=== PATIENT | male | born 1960 | race Caucasian/White ===

== ENCOUNTER 2022-02-17 15:49 | Inpatient (IN) ==
--- NOTE | 2022-02-17 16:27 | ED Triage Note ---
Date of Service February 17, 2022 History of Present Illness This patient was briefly evaluated while in triage. An abbreviated physical exam was performed. This patient is a 61-year-old Male with past medical history of type 2 diabetes who presents to the ED for evaluation of redness swelling heat in his right foot. Kicked a door jam 3 days ago. Concern for infection. Sent by PCP. Physical Exam CONSTITUTIONAL: in no acute pain or distress, resting comfortably SKIN: right foot with erythema, malodorous wound laterally and edema. MSK: edema in the r lateral foot Initial orders for labs and / or imaging were placed and patient was placed in the waiting area until a bed is available. Please see further documentation for the full ED course.
--- NOTE | 2022-02-17 18:19 | XRay Report ---
XR foot RT min 3V routine CLINICAL HISTORY: Kicked door jam, infection, DM 2 COMPARISON: None FINDINGS: Alignment of the right foot is anatomic. Tarsometatarsal joints are intact. There is no ac trell fracture. There is an old, healed fracture the distal shaft of the right fifth metatarsal. A few punctate densities project lateral to the right fifth proximal phalanx. Soft tissue swelling is prese nt. Note is made of numerous locules of soft tissue gas within the right forefoot, at the level of th e fourth and fifth digits. The soft tissue gas likely extends the level of the proximal metatarsal sh afts. No evidence for acute osteomyelitis. Vascular calcification is incidentally noted. There is marcelino ntar and posterior calcaneal spurring. Moderate degenerative changes within the right foot are presen t. IMPRESSION: 1. Findings suggestive of an extensive infectious process of the lateral dorsal right forefoot with s oft tissue swelling and soft tissue gas, as described above. The findings suggest a gas-forming infec tious process. No evidence for acute osteomyelitis. 2. No acute fracture. 3. A few punctate densities which project lateral to the right fifth proximal phalanx. This could ref lect debris/tiny foreign bodies on or just deep to the skin. ACT 112: Negative or not required by law. Electronically signed by: Jack Hairston M.D. 02/17/2022 6:17 PM
[2022-02-17] MEDS ORDERED: PIPERACILLIN/TAZOBACTAM 4.5 GM/120 ML BAG IV ONE (19:24)
[2022-02-17] MEDS ORDERED: SODIUM CHLORIDE 0.9% 1000ML 2,000 ML IV ONE (19:26)
[2022-02-17] MEDS ORDERED: ACETAMINOPHEN 1,000 MG/100 ML VIAL IV STA (19:29)
[2022-02-17 19:36] LABS: Basophils # (auto) 0.07 K/uL (0-0.2); Basophils % (auto) 0.4 %; Eosinophils # (auto) 0.18 K/uL (0-0.50); Eosinophils % (auto) 1.1 %; Hematocrit (blood only) 43.1 % (40.1-51.0); Hemoglobin 14.1 g/dl (14.0-18.0); Immature Granulocytes # (auto) 0.23 K/uL (0.00-0.02); Immature Granulocytes % (auto) 1.3 %; Lymphocytes # (auto) 1.45 K/uL (1.2-3.4); Lymphocytes % (auto) 8.5 %; Mean Corpuscular Hemoglobin 27.9 pg (25.0-34.0); Mean Corpuscular Hgb Conc 32.7 g/dL (32.0-36.0); Mean Corpuscular Volume 85.2 fL (80.0-100.0); Mean Platelet Volume 9.1 fL (9.4-12.4); Monocytes # (auto) 1.18 K/uL (0.24-0.82); Monocytes % (auto) 6.9 %; Neutrophils # (auto) 13.95 K/uL (1.4-6.5); Neutrophils % (auto) 81.8 %; Platelet Count 316 K/uL (130-400); RDW Coefficient of Variation 12.8 % (11.5-14.5); RDW Standard Deviation 39.6 fL (36.4-46.3); Red Blood Count 5.06 M/uL (4.63-6.08); White Blood Count 17.06 K/ul (4.8-10.8)
--- NOTE | 2022-02-17 19:53 | Emergency Department Note ---
Impression & Plan Diabetic foot infection, Osteomyelitis of right foot, Gas gangrene ED Provider Note NAME: RO HADDAD AGE: 61 SEX: M ARRIVES VIA: Walk-In INFORMANT: Patient ED PROVIDER(S): Trorey Rodriguez MD CHIEF COMPLAINT: Foot infection, referred. PLAN: Disposition: Admit MEDICAL DECISION MAKING: The patient is a pleasant 61-year-old gentleman with a past medical history of diabetes who presents emerged department [facility] by his , referred by his PCPs office for evaluation of right diabetic foot infection which she reports developed redness over the past week and then reports he slipped and hit it on a door jam several days ago. She has been encouraging him to be seen for a number of days but he only agreed today to be seen. Denies any fevers, chills, cough, congestion, GI or symptoms. He reports he had been hospitalized recently for heel ulcers which have improved. On arrival the patient is in no acute distress, afebrile stable vital signs. He has erythema warmth and tenderness of the right dorsal forefoot centered at the third-fourth toes with tunneling ulceration within the webspace of the fourth and fifth toe which was cultured. X-ray was performed per critical pathways and demonstrates evidence of necrotizing infection with soft tissue gas though in the setting of tunneling ulcer. No radiographic evidence of osteomyelitis is seen. WBC 17K with neutrophil predominance and left shift. H/H and platelets within normal limits. ESR 100, CRP 31. Chemistry without metabolic acidosis. Lactic acid 1.3, within normal limits. LFTs unremarkable. Procalcitonin is not significantly elevated. COVID-19 RNA, NICK test was negative. Patient was treated empirically with Zosyn and daptomycin. 30cc/kg per IBW IVF ordered. I did discuss the case with Dr. Jackson, podiatry, who evaluated the patient at the bedside. Appreciate consultation/recommendations. Will take to OR tonight. Case was discussed with Dr. Guzmán, [facility] hospitalist who will evaluate the patient for admission. Triage Nursing notes reviewed and agree them. Prior medical records reviewed Differential diagnosis: Cellulitis, abscess, MRSA infection, DVT, necrotizing fasciitis, dermatitis, drug eruption, allergic reaction, as well as other pathologies. ER treatment provided: See below. Diagnostics interpreted by me: ECG: NSR, 68 bpm, no ectopy, TWA, no overt ST elevation or depression. Cardiac Monitoring: An order for continuous cardiac monitoring was placed and demonstrated NSR, 68 bpm, no ectopy. Laboratory studies: See below Imaging studies: See below Consultation(s): Dr. Jackson, podiatry Dr. Guzmán, [facility] hospitalist HPI: The patient is a pleasant 61-year-old gentleman with a past medical history of diabetes who presents emerged department [facility] by his , referred by his PCPs office for evaluation of right diabetic foot infection which she reports developed redness over the past week and then reports he slipped and hit it on a door jam several days ago. She has been encouraging him to be seen for a number of days but he only agreed today to be seen. Denies any fevers, chills, cough, congestion, GI or symptoms. He reports he had been hospitalized recently for heel ulcers which have improved. ROS: See above HPI for pertinent positives & negatives. A total of 10 systems reviewed and were otherwise negative. VITALS:See Below PHYSICAL EXAMINATION: GENERAL: Awake, alert, uncomfortable-appearing, in no distress HENT: Normocephalic, atraumatic. Oropharynx with dry mucous membranes and otherwise unremarkable. EYES: Normal conjunctiva. Sclera non-icteric. NECK: Supple. No nuchal rigidity. FROM. No JVD. RESPIRATORY: Clear to auscultation. CARDIAC: Regular rate, normal rhythm. Extremities warm and well perfused. Pulses equal. ABDOMEN: Soft, non-distended. No tenderness to palpation. No rebound or guarding. No masses. RECTAL: Deferred. MUSCULOSKELETAL: Chest examination reveals no tenderness. The back is symmetrical on inspection without obvious abnormality. There is no CVA ten derness to palpation LOWER EXTREMITIES: Calves are equal size bilaterally and non-tender. Erythema w armth and tenderness of the right dorsal forefoot centered at the third-fourth toes with tunneling ulceration within the webspace of the fourth and fifth toe which was cultured. Biphasic dopplerable DP, PT and AT pulses noted NEURO: Normal sensorium. No sensory or motor deficits noted. SKIN: No rash or jaundice noted. ED COURSE: Critical Care: I have personally spent greater than 95 minutes of critical care time in the direct management of this patient. This includes bedside care, interpretation of diagnostic studies, and testing, discussion with consultants, patient, and family members, and other required patient management activities. This 95 minutes is in excess of all separately billable procedures. Torrey Rodriguez MD Past Med/Surg History Medical History Diabetes mellitus Dyslipidemia GERD (gastroesophageal reflux disease) Neuropathy Obesity Osteomyelitis of right foot Stroke July 2020 Right upper extremity weakness Family History Other Family history non-contributory Social History Smoking Status: Never smoker Smoking End Date: "one and a half years ago"; Do You Dip or Chew Tobacco: No; Hx Alcohol Use: No Hx Substance Use: No Preferred Language: Bengali Communication Ability: Effective Station Master Required: No Beliefs That Will Affect Care: None Current Living Situation: Family Current Living Situation Comment: Nephew Other Information That Helps Us Care for You: No Feels Safe at Home: Yes Safety Concerns: Feels Safe At This Time Assistive Devices: Glasses Allergies Allergies Allergy/AdvReac Type Severity Reaction Status Date / Time aloe vera Allergy Unknown Unknown Verified 02/17/22 21:01 Home Meds Home Medications Medication Instructions Recorded Confirmed ammonium lactate 12 % lotion 1 applic topical UD PRN dry skin 02/17/22 02/17/22 on legs clopidogrel 75 mg tablet 75 mg PO QAM 02/17/22 02/17/22 dutasteride 0.5 mg capsule 0.5 mg PO QAM 02/17/22 02/17/22 empagliflozin 10 mg tablet 10 mg PO QAM 02/17/22 02/17/22 (Jardiance) esomeprazole magnesium 20 mg 20 mg PO DAILYBB 02/17/22 02/17/22 granules delayed release for susp mecobalamin 1,000 mcg-folic acid 1 tab PO QAM 02/17/22 02/17/22 200 mcg sublingual tablet (Opurity) metoprolol tartrate 25 mg tablet 25 mg PO QAM 02/17/22 02/17/22 olmesartan 40 mg tablet 40 mg PO QAM 02/17/22 02/17/22 pantoprazole 40 mg tablet,delayed 40 mg PO QAM 02/17/22 02/17/22 release rosuvastatin 10 mg tablet 10 mg PO QPM 02/17/22 02/17/22 Results & Data (ED) Vital Signs Vital Signs - 24 hr 02/17/22 16:23 Temperature 37.1 C Temperature Source Oral Pulse Rate 78 Pulse Rhythm Regular Pulse Strength Normal Respiratory Rate 18 Respiratory Effort / Characteristics Non-Labored Spontaneous Respiratory Depth Normal Respiratory Pattern Regular Blood Pressure 117/60 Blood Pressure Mean 79 Blood Pressure Position Sitting Pulse Oximetry 98 Oxygen Delivery Method Room Air Sepsis Recent Fever Within 48 Hours No Sepsis New/Unexplained Change in Mental Status No Sepsis Action Taken by Nursing No Action Required Laboratory Data Attestation: I reviewed the patient's lab results. Result diagrams: 02/17/22 19:22 02/17/22 20:43 Lab Results 02/17/22 02/17/22 02/17/22 Range/Units 19:22 19: 19: WBC 17.06 H (4.8-10.8) K/ul RBC 5.06 (4.63-6.08) M/uL Hgb 14.1 (14.0-18.0) g/dl Hct 43.1 (40.1-51.0) % MCV 85.2 (80.0-100.0) fL MCH 27.9 (25.0-34.0) pg MCHC 32.7 (32.0-36.0) g/dL RDW Std Deviation 39.6 (36.4-46.3) fL RDW Coeff of Ahsan 12.8 (11.5-14.5) % Plt Count 316 (130-400) K/uL MPV 9.1 L (9.4-12.4) fL Immature Gran % (Auto) 1.3 % Neut % (Auto) 81.8 % Lymph % (Auto) 8.5 % [place] % (Auto) 6.9 % Eos % (Auto) 1.1 % Baso % (Auto) 0.4 % Neut # (Auto) 13.95 H (1.4-6.5) K/uL Lymph # (Auto) 1.45 (1.2-3.4) K/uL [place] # (Auto) 1.18 H (0.24-0.82) K/uL Eos # (Auto) 0.18 (0-0.50) K/uL Baso # (Auto) 0.07 (0-0.2) K/uL Immature Gran # (Auto) 0.23 H (0.00-0.02) K/uL Blood Smear Review Cancelled ESR (0-20) mm/hr Sodium 136 (136-145) mmol/L Potassium TNP Chloride 100 (98-107) mmol/L Carbon Dioxide 23 (21-32) mmol/L Anion Gap 13 H (3-11) BUN 16 (6-23) mg/dl Creatinine 0.95 (0.6-1.4) mg/dl Est Cr Clr Drug Dosing 91.6 ml/min Est GFR ( Amer) 101.1 ml/min Est GFR (Non-Af Amer) 87.3 ml/min BUN/Creatinine Ratio 16.8 (10-20) Glucose 216 H (70-99(Fasting)) mg/dl Lactate 1.3 (0.4-2.0) mmol/L Calcium 9.8 (8.5-10.1) mg/dl Total Bilirubin 0.8 (0.2-1.0) mg/dl AST TNP ALT 21 (7-52) U/L Alkaline Phosphatase 82 (34-104) U/L C-Reactive Protein 31.52 H (0-0.5) mg/dl Total Protein 8.2 (6.0-8.3) gm/dl Albumin 3.4 (3.4-5.0) gm/dl Globulin 4.8 H (2.5-4.0) gm/dl Albumin/Globulin Ratio 0.7 L (0.9-2) Procalcitonin (0-0.5) ng/ml SARS-CoV-2, RNA, NAAT (NEGATIVE) 02/17/22 02/17/22 02/17/22 Range/Units 19:22 19:22 20:15 WBC (4.8-10.8) K/ul RBC (4.63-6.08) M/uL Hgb (14.0-18.0) g/dl Hct (40.1-51.0) % MCV (80.0-100.0) fL MCH (25.0-34.0) pg MCHC (32.0-36.0) g/dL RDW Std Deviation (36.4-46.3) fL RDW Coeff of Ahsan (11.5-14.5) % Plt Count (130-400) K/uL MPV (9.4-12.4) fL Immature Gran % (Auto) % Neut % (Auto) % Lymph % (Auto) % [place] % (Auto) % Eos % (Auto) % Baso % (Auto) % Neut # (Auto) (1.4-6.5) K/uL Lymph # (Auto) (1.2-3.4) K/uL [place] # (Auto) (0.24-0.82) K/uL Eos # (Auto) (0-0.50) K/uL Baso # (Auto) (0-0.2) K/uL Immature Gran # (Auto) (0.00-0.02) K/uL Blood Smear Review ESR 101 H (0-20) mm/hr Sodium (136-145) mmol/L Potassium Chloride (98-107) mmol/L Carbon Dioxide (21-32) mmol/L Anion Gap (3-11) BUN (6-23) mg/dl Creatinine (0.6-1.4) mg/dl Est Cr Clr Drug Dosing ml/min Est GFR ( Amer) ml/min Est GFR (Non-Af Amer) ml/min BUN/Creatinine Ratio (10-20) Glucose (70-99(Fasting)) mg/dl Lactate (0.4-2.0) mmol/L Calcium (8.5-10.1) mg/dl Total Bilirubin (0.2-1.0) mg/dl AST ALT (7-52) U/L Alkaline Phosphatase (34-104) U/L C-Reactive Protein (0-0.5) mg/dl Total Protein (6.0-8.3) gm/dl Albumin (3.4-5.0) gm/dl Globulin (2.5-4.0) gm/dl Albumin/Globulin Ratio (0.9-2) Procalcitonin 0.21 (0-0.5) ng/ml SARS-CoV-2, RNA, NAAT NEGATIVE (NEGATIVE) 02/17/22 Range/Units 20:43 WBC (4.8-10.8) K/ul RBC (4.63-6.08) M/uL Hgb (14.0-18.0) g/dl Hct (40.1-51.0) % MCV (80.0-100.0) fL MCH (25.0-34.0) pg MCHC (32.0-36.0) g/dL RDW Std Deviation (36.4-46.3) fL RDW Coeff of Ahsan (11.5-14.5) % Plt Count (130-400) K/uL MPV (9.4-12.4) fL Immature Gran % (Auto) % Neut % (Auto) % Lymph % (Auto) % [place] % (Auto) % Eos % (Auto) % Baso % (Auto) % Neut # (Auto) (1.4-6.5) K/uL Lymph # (Auto) (1.2-3.4) K/uL [place] # (Auto) (0.24-0.82) K/uL Eos # (Auto) (0-0.50) K/uL Baso # (Auto) (0-0.2) K/uL Immature Gran # (Auto) (0.00-0.02) K/uL Blood Smear Review ESR (0-20) mm/hr Sodium (136-145) mmol/L Potassium 3.6 Chloride (98-107) mmol/L Carbon Dioxide (21-32) mmol/L Anion Gap (3-11) BUN (6-23) mg/dl Creatinine (0.6-1.4) mg/dl Est Cr Clr Drug Dosing ml/min Est GFR ( Amer) ml/min Est GFR (Non-Af Amer) ml/min BUN/Creatinine Ratio (10-20) Glucose (70-99(Fasting)) mg/dl Lactate (0.4-2.0) mmol/L Calcium (8.5-10.1) mg/dl Total Bilirubin (0.2-1.0) mg/dl AST 18 ALT (7-52) U/L Alkaline Phosphatase (34-104) U/L C-Reactive Protein (0-0.5) mg/dl Total Protein (6.0-8.3) gm/dl Albumin (3.4-5.0) gm/dl Globulin (2.5-4.0) gm/dl Albumin/Globulin Ratio (0.9-2) Procalcitonin (0-0.5) ng/ml SARS-CoV-2, RNA, NAAT (NEGATIVE) Administered Medications Daptomycin 475 mg/ Syringe 9.5 mls @ 4.75 mls/min IV Q24H [facility]; Protocol Stop: 02/19/22 19:29 Last Admin: 02/17/22 20:12 Dose: 4.75 mls/min Documented By: NEMESIO Lactated Ringer's (Lr) 1,000 mls @ 50 mls/hr IV .Q20H ONE Stop: 02/18/22 17:53 Last Admin: 02/18/22 03:57 Dose: 50 mls/hr Documented By: GREG Piperacillin Sod/Tazobactam (Sod 4.5 gm/ Dextrose) 120 mls @ 30 mls/hr IV Q8H [facility]; Protocol Stop: 02/25/22 01:59 Last Admin: 02/18/22 02:28 Dose: 30 mls/hr Documented By: GREG Insulin Glargine (Lantus Per Unit Charge) 5 units SQ HS HOANG Stop: 03/19/22 23:26 Last Admin: 02/18/22 02:58 Dose: 5 units Documented By: GREG Co-signed By: CONNOR Olmesartan (Olmesartan Medoxomil 40 Mg Tab) 40 mg PO QAM HOANG Stop: 03/20/22 02:19 Last Admin: 02/18/22 03:00 Dose: 40 mg Documented By: GREG Discontinued Medications Piperacillin Sod/Tazobactam Sod (Zosyn) 4.5 gm in 120 mls @ 240 mls/hr IV NOW ONE Stop: 02/17/22 19:53 Last Infusion: 02/17/22 21:57 Dose: 0 mls/hr Documented By: Admin: 02/17/22 20:50 Dose: 240 mls/hr Documented By: NEMESIO Sodium Chloride (Nss 1000ml) 2,000 mls @ 999 mls/hr IV .Q2H1M ONE Stop: 02/17/22 21:26 Last Infusion: 02/17/22 23:37 Dose: 0 mls/hr Documented By: Admin: 02/17/22 20:12 Dose: 999 mls/hr Documented By: NEMESIO Acetaminophen (Ofirmev) 1,000 mg in 100 mls @ 400 mls/hr IV NOW STA Stop: 02/17/22 19:43 Last Infusion: 02/17/22 20:30 Dose: 0 mls/hr Documented By: Admin: 02/17/22 20:12 Dose: 400 mls/hr Documented By: NEMESIO Insulin Aspart (Insulin Aspart Per Unit) 0 units SC Q6 HOANG Stop: 03/20/22 00:00 Last Admin: 02/18/22 02:59 Dose: Not Given Documented By: GREG Co-signed By: CONNOR Ioversol (Optiray 350 100ml) 85 ml IV ONCE ONE Stop: 02/17/22 21:50 Last Admin: 02/17/22 21:50 Dose: 85 ml Documented By: KENNA Lidocaine HCl (Lidocaine 1% Local 20 Ml Vial) Confirm Administered Dose 20 ml .ROUTE .STK-MED ONE Stop: 02/18/22 00:41 Last Admin: 02/18/22 01:05 Dose: 10 ml Documented By: [id number] Vancomycin HCl (Vancomycin Hcl 1000mg/20ml Vial) Confirm Administered Dose 50 mg .ROUTE .STK-MED ONE Stop: 02/18/22 00:55 Last Admin: 02/18/22 01:00 Dose: 1,000 mg Documented By: RTU Imaging Data Radiologist's Impression: Foot X-Ray 02/17/22 16:25 XR foot RT min 3V routine CLINICAL HISTORY: Kicked door jam, infection, DM 2 COMPARISON: None FINDINGS: Alignment of the right foot is anatomic. Tarsometatarsal joints are intact. There is no acute fracture. There is an old, healed fracture the distal shaft of the right fifth metatarsal. A few punctate densities project lateral to the right fifth proximal phalanx. Soft tissue swelling is present. Note is made of numerous locules of soft tissue gas within the right forefoot, at the level of the fourth and fifth digits. The soft tissue gas likely extends the level of the proximal metatarsal shafts. No evidence for acute osteomyelitis. Vascular calcification is incidentally noted. There is plantar and posterior calcaneal spurring. Moderate degenerative changes within the right foot are present. IMPRESSION: 1. Findings suggestive of an extensive infectious process of the lateral dorsal right forefoot with soft tissue swelling and soft tissue gas, as described above. The findings suggest a gas-forming infectious process. No evidence for acute osteomyelitis. 2. No acute fracture. 3. A few punctate densities which project lateral to the right fifth proximal phalanx. This could reflect debris/tiny foreign bodies on or just deep to the skin. ACT 112: Negative or not required by law. Electronically signed by: Jack Hairston M.D. 02/17/2022 6:17 PM Discharge Plan Visit Data Chief Complaint: Foot Injury/Pain Stated Complaint: REFERRED DOCTOR, RIGHT FOOT SWELLING ED Provider: Torrey Rodriguez Discharge Problem: Diabetic foot infection, Osteomyelitis of right foot, Gas gangrene Patient Disposition: Admitted As Inpatient Discharge Instructions Interventions: ED Discharge Assessment Last Done: 02/17/22 22:42
[2022-02-17] MEDS: DAPTOmycin 475 MG in SYRINGE 0 ML IV SCH (20:12)
[2022-02-17 20:26] LABS: Alanine Aminotransferase 21 U/L (7-52); Albumin Globulin Ratio 0.7 (0.9-2); Albumin Level 3.4 gm/dl (3.4-5.0); Alkaline Phosphatase 82 U/L (34-104); Anion Gap 13 (3-11); BUN Creatinine Ratio 16.8 (10-20); Bilirubin,Total 0.8 mg/dl (0.2-1.0); Blood Urea Nitrogen 16 mg/dl (6-23); C Reactive Protein 31.52 mg/dl (0-0.5); Calcium 9.8 mg/dl (8.5-10.1); Carbon Dioxide 23 mmol/L (21-32); Chloride 100 mmol/L (98-107); Creatinine Clr Calc Pharmacy 91.6 ml/min; Est GFR (African American) 101.1 ml/min; Est GFR (Non-African American) 87.3 ml/min; Globulin 4.8 gm/dl (2.5-4.0); Glucose 216 mg/dl (70-99(Fasting)); Sodium 136 mmol/L (136-145); Total Protein 8.2 gm/dl (6.0-8.3)
--- NOTE | 2022-02-17 21:09 | Orthopedic Consultation ---
Date of Consultation February 17, 2022 Assessment & Plan (1) Diabetic foot infection: Patient seen, evaluated, and treated. Reviewed x-ray noting gas present and probable right fifth proximal phalanx Osteomyelitis. Physical Exam shows signs consistent with necrotizing fasciitis. Discussed imaging and physical exam with Patient. Recommend immediate I&D with fifth ray resection, possible fourth. Patient and voice understanding and consent. I reviewed procedure in detail as well as postoperative recovery. I discussed expectations and patient's current weightbearing status. All questions answered. I have discussed procedure in detail as well as postoperative recovery. All potential risks, benefits, complications, alternatives, rehab, potential for incomplete relief of symptoms, need for further surgery, DVT, PE, , persistent pain, swelling, scarring, weakness, neurovascular, wound compli cations and potential for amputations were discussed with patient. Unwanted outcomes such as, but not limited to were reviewed including under correction, overcorrection, return of deformity, infection. All questions were answered. Patient has decided to proceed with procedure as indicated. (2) Gas gangrene: (3) Osteomyelitis of right foot: History of Present Illness History of Present Illness Patient is a type II diabetic, 61 year old male who is seen at [facility] ED for right diabetic foot infection. Patient is with who helps with history and care. He states ongoing infection for 4 days after kicking door. Patient was seen by his new [facility]ie PCP earlier in day who directed Patient to ED for immediate care. He notes he has switched from multiple family doctors in last year. Patient has no other complaints. Allergies Allergy/AdvReac Type Severity Reaction Status Date / Time aloe vera Allergy Unknown Unknown Verified 02/17/22 21:01 Home Medications Medication Instructions Recorded Confirmed Type ammonium lactate 12 % lotion 1 applic topical UD PRN dry skin 02/17/22 02/17/22 History on legs clopidogrel 75 mg tablet 75 mg PO QAM 02/17/22 02/17/22 History dutasteride 0.5 mg capsule 0.5 mg PO QAM 02/17/22 02/17/22 History empagliflozin 10 mg tablet 10 mg PO QAM 02/17/22 02/17/22 History (Jardiance) esomeprazole magnesium 20 mg 20 mg PO DAILYBB 02/17/22 02/17/22 History granules delayed release for susp mecobalamin 1,000 mcg-folic acid 1 tab PO QAM 02/17/22 02/17/22 History 200 mcg sublingual tablet (Opurity) metoprolol tartrate 25 mg tablet 25 mg PO QAM 02/17/22 02/17/22 History olmesartan 40 mg tablet 40 mg PO QAM 02/17/22 02/17/22 History pantoprazole 40 mg tablet,delayed 40 mg PO QAM 02/17/22 02/17/22 History release rosuvastatin 10 mg tablet 10 mg PO QPM 02/17/22 02/17/22 History Patient History Medical History (Updated 02/18/22 @ 00:10 by Mau Boyle MD) Diabetes mellitus Dyslipidemia GERD (gastroesophageal reflux disease) Neuropathy Obesity Osteomyelitis of right foot Stroke July 2020 Right upper extremity weakness Social History Smoking Status: Never smoker Preferred Language: [place] Feels Safe at Home: Yes Review of Systems Review of Systems: All systems reviewed & are unremarkable except as noted in HPI & below Physical Exam Constitutional: + ill appearing, + disheveled and cooperative Eyes: PERRL, conjunctivae normal, anicteric sclerae ENMT: external ear and nose normal, oropharynx normal Neck: trachea midline, no thyromegaly Respiratory: normal respiratory effort Cardiovascular: Rate/Rhythm: regular rate and regular rhythm Pedal pulses palpable Skin: Full thickness ulcer fourth interspace right foot. Wound probes to fifth proximal phalanx and fifth metatarsal head. The fifth digit is dark and dusky. There is erythema ascending up foot and ankle. Malodor present. Crepitus with palpation to lateral fifth ray. There is increasing erythema and induration consistent with infection. Psychiatric: Orientation: alert and oriented x 3 Results & Data ([facility]) Vital Signs (Past 12 Hours) Vital Signs Temp Pulse Resp BP Pulse Ox O2 Del Method 02/17/22 16:23 37.1 C 78 18 117/60 98 Room Air Diagnostic Findings XR foot RT min 3V routine CLINICAL HISTORY: Kicked door jam, infection, DM 2 COMPARISON: None FINDINGS: Alignment of the right foot is anatomic. Tarsometatarsal joints are intact. There is no acute fracture. There is an old, healed fracture the distal shaft of the right fifth metatarsal. A few punctate densities project lateral to the right fifth proximal phalanx. Soft tissue swelling is present. Note is made of numerous locules of soft tissue gas within the right forefoot, at the level of the fourth and fifth digits. The soft tissue gas likely extends the level of the proximal metatarsal shafts. No evidence for acute osteomyelitis. Vascular calcification is incidentally noted. There is plantar and posterior calcaneal spurring. Moderate degenerative changes within the right foot are present. IMPRESSION: 1. Findings suggestive of an extensive infectious process of the lateral dorsal right forefoot with soft tissue swelling and soft tissue gas, as described above. The findings suggest a gas-forming infectious process. No evidence for acute osteomyelitis. 2. No acute fracture. 3. A few punctate densities which project lateral to the right fifth proximal phalanx. This could reflect debris/tiny foreign bodies on or just deep to the skin.
[2022-02-17 21:37] LABS: Potassium 3.6 mmol/L (3.5-5.1)
--- NOTE | 2022-02-17 21:48 | History & Physical Report ---
Date of Service February 17, 2022 Assessment & Plan (1) Diabetic foot infection: Plan: Diabetic foot infection right No overt sepsis for now hx CVA 2020 hypertension, stable hyperlipidemia on statin Rx DM2 on oral medications, well-controlled as of recent hemoglobin A1c of 6.31 Aug 2021 BPH past tobacco abuse GMF CS, Daptomycin, Zosyn Podiatry consult Re: DM foot infection (ER provider already in touch with Dr. Jackson who recommends emergent surgery tonight.) n.p.o. until patient seen by Podiatry. Hold Plavix in anticipation of procedure. Resume Plavix postprocedure once cleared by podiatry. Basal bolus insulin adjusted for n.p.o. status, ISS BG goal 1 10-1 40, update hemoglobin A1c DVT prophylaxis. SCDs possible procedure Recommend pharmacologic anticoagulation once bleeding risk is deemed to be minimal and negligible pending Podiatry evaluation. Full code Patient [id number] requesting updates for providers. Ms. Elvira Rojas, contact #[phone]. Text document was generated using [employer] voice recognition software. It may contain grammatical or spelling errors. Kindly contact undersigned for clarification of any documentation item in question. History of Present Illness Chief Complaint: Right foot infection Primary Care Provider: Jerry Pavon DO History obtained from patient, family, and records. Medical history significant for CVA, hypertension, hyperlipidemia, DM2 on oral medications, BPH, past tobacco abuse. Patient hit his right foot on a door jam last week. Note of right small toe wound with worsening redness and swelling. No fever, no chills, no chest pain, no shortness of breath. Patient initially hesitant to have foot checked out by doctor as per sis ter-in-law. He later agreed to see his PCP today. Patient directed to ER for evaluation. Daptomycin and Zosyn administered at the ER. Medical History as above Surgical History : Heel surgery Family History : DM, heart disease Personal/Social history : Past tobacco abuse, no EtOH intake, currently unemployed Allergies Allergy/AdvReac Type Severity Reaction Status Date / Time aloe vera Allergy Unknown Unknown Verified 02/17/22 21:01 Home Medications Medication Instructions Recorded Confirmed Type ammonium lactate 12 % lotion 1 applic topical UD PRN dry skin 02/17/22 02/17/22 History on legs clopidogrel 75 mg tablet 75 mg PO QAM 02/17/22 02/17/22 History dutasteride 0.5 mg capsule 0.5 mg PO QAM 02/17/22 02/17/22 History empagliflozin 10 mg tablet 10 mg PO QAM 02/17/22 02/17/22 History (Jardiance) esomeprazole magnesium 20 mg 20 mg PO DAILYBB 02/17/22 02/17/22 History granules delayed release for susp mecobalamin 1,000 mcg-folic acid 1 tab PO QAM 02/17/22 02/17/22 History 200 mcg sublingual tablet (Opurity) metoprolol tartrate 25 mg tablet 25 mg PO QAM 02/17/22 02/17/22 History olmesartan 40 mg tablet 40 mg PO QAM 02/17/22 02/17/22 History pantoprazole 40 mg tablet,delayed 40 mg PO QAM 02/17/22 02/17/22 History release rosuvastatin 10 mg tablet 10 mg PO QPM 02/17/22 02/17/22 History Past Med/Surg History Medical History Diabetes mellitus Dyslipidemia GERD (gastroesophageal reflux disease) Neuropathy Obesity Osteomyelitis of right foot Stroke July 2020 Right upper extremity weakness Family History Other Family history non-contributory Social History Smoking Status: Never smoker Smoking End Date: "one and a half years ago"; Do You Dip or Chew Tobacco: No; Hx Alcohol Use: No Hx Substance Use: No Preferred Language: Lao Communication Ability: Effective Grounds Supervisor Required: No Beliefs That Will Affect Care: None Current Living Situation: Family Current Living Situation Comment: Nephew Other Information That Helps Us Care for You: No Feels Safe at Home: Yes Safety Concerns: Feels Safe At This Time Assistive Devices: Glasses Review of Systems Review of Systems: As per HPI, all other systems reviewed and negative Physical Exam Physical Exam: GENERAL: Comfortable, pleasant, obese, no respiratory distress SKIN: Normal color, warm HEENT: [place] palpebral conjunctivae, no ptosis, dry buccal mucosa NECK : Supple, no tenderness CHEST : CTA, no tenderness HEART : RRR, no obvious murmurs ABDOMEN: Some distention, nontender EXTREMITIES : Indurated right foot necrotic wound, minimal tenderness, no other conspicuous deformities noted NEUROLOGIC : Coherent, no facial asymmetry, no other gross focality Results & Data Results & Data ([facility]) Vital Signs (Past 12 Hours) Vital Signs Temp Pulse Resp BP Pulse Ox O2 Del Method 02/17/22 16:23 37.1 C 78 18 117/60 98 Room Air Laboratory Results Laboratory Results WBC 17.06 K/ul (4.8-10.8) H 02/17/22 19: RBC 5.06 M/uL (4.63-6.08) 02/17/22 19:22 Hgb 14.1 g/dl (14.0-18.0) 02/17/22 19: Hct 43.1 % (40.1-51.0) 02/17/22 19: MCV 85.2 fL (80.0-100.0) 02/17/22 19: MCH 27.9 pg (25.0-34.0) 02/17/22 19: MCHC 32.7 g/dL (32.0-36.0) 02/17/22 19: RDW Std Deviation 39.6 fL (36.4-46.3) 02/17/22: RDW Coeff of Ahsan 12.8 % (11.5-14.5) 02/17/22 19: Plt Count 316 K/uL (130-400) 02/17/22 19: MPV 9.1 fL (9.4-12.4) L 02/17/22 19: Immature Gran % (Auto) 1.3 % 02/17/22 19: Neut % (Auto) 81.8 % 02/17/22 19: Lymph % (Auto) 8.5 % 02/17/22 19: Louisa % (Auto) 6.9 % 02/17/22 19: Eos % (Auto) 1.1 % 02/17/22: Baso % (Auto) 0.4 % 02/17/22 19: Neut # (Auto) 13.95 K/uL (1.4-6.5) H 02/17/22 19: Lymph # (Auto) 1.45 K/uL (1.2-3.4) 02/17/22 19:22 Louisa # (Auto) 1.18 K/uL (0.24-0.82) H 02/17/22 19:22 Eos # (Auto) 0.18 K/uL (0-0.50) 02/17/22 19:22 Baso # (Auto) 0.07 K/uL (0-0.2) 02/17/22 19:22 Immature Gran # (Auto) 0.23 K/uL (0.00-0.02) H 02/17/22 19:22 Blood Smear Review Cancelled 02/17/22 19:22 ESR 101 mm/hr (0-20) H 02/17/22 19:22 Sodium 136 mmol/L (136-145) 02/17/22 19: Potassium 3.6 mmol/L (3.5-5.1) 02/17/22 20:43 Chloride 100 mmol/L (98-107) 02/17/22: Carbon Dioxide 23 mmol/L (21-32) 02/17/22 19:22 Anion Gap 13 (3-11) H 02/17/22 19:22 BUN 16 mg/dl (6-23) 02/17/22 19:22 Creatinine 0.95 mg/dl (0.6-1.4) 02/17/22 19:22 Est Cr Clr Drug Dosing 91.6 ml/min 02/17/22 19:22 Est GFR ( Amer) 101.1 ml/min 02/17/22 19:22 Est GFR (Non-Af Amer) 87.3 ml/min 02/17/22:22 BUN/Creatinine Ratio 16.8 (10-20) 02/17/22 19:22 Glucose 216 mg/dl (70-99(Fasting)) H 02/17/22 19:22 Lactate 1.3 mmol/L (0.4-2.0) 02/17/22 19:22 Calcium 9.8 mg/dl (8.5-10.1) 02/17/22 19:22 Total Bilirubin 0.8 mg/dl (0.2-1.0) 02/17/22 19:22 AST 18 U/L (13-39) 02/17/22 20:43 ALT 21 U/L (7-52) 02/17/22 19:22 Alkaline Phosphatase 82 U/L (34-104) 02/17/22 19:22 C-Reactive Protein 31.52 mg/dl (0-0.5) H 02/17/22 19:22 Total Protein 8.2 gm/dl (6.0-8.3) 02/17/22 19:22 Albumin 3.4 gm/dl (3.4-5.0) 02/17/22 19:22 Globulin 4.8 gm/dl (2.5-4.0) H 02/17/22 19:22 Albumin/Globulin Ratio 0.7 (0.9-2) L 02/17/22 19:22 Procalcitonin 0.21 ng/ml (0-0.5) 02/17/22 19:22 SARS-CoV-2, RNA, NAAT NEGATIVE (NEGATIVE) 02/17/22 20:15 Impressions Foot X-Ray 02/17/22 16:25 XR foot RT min 3V routine CLINICAL HISTORY: Kicked door jam, infection, DM 2 COMPARISON: None FINDINGS: Alignment of the right foot is anatomic. Tarsometatarsal joints are intact. There is no acute fracture. There is an old, healed fracture the distal shaft of the right fifth metatarsal. A few punctate densities project lateral to the right fifth proximal phalanx. Soft tissue swelling is present. Note is made of numerous locules of soft tissue gas within the right forefoot, at the level o f the fourth and fifth digits. The soft tissue gas likely extends the level of the proximal metatarsal shafts. No evidence for acute osteomyelitis. Vascular calcification is incidentally noted. There is plantar and posterior calcaneal spurring. Moderate degenerative changes within the right foot are present. IMPRESSION: 1. Findings suggestive of an extensive infectious process of the lateral dorsal right forefoot with soft tissue swelling and soft tissue gas, as described above. The findings suggest a gas-forming infectious process. No evidence for acute osteomyelitis. 2. No acute fracture. 3. A few punctate densities which project lateral to the right fifth proximal phalanx. This could reflect debris/tiny foreign bodies on or just deep to the skin. ACT 112: Negative or not required by law. Electronically signed by: Jack Hairston M.D. 02/17/2022 6:17 PM Diagnostic Findings EKG as per my interpretation :Rate 70, NSR, normal axis, T wave abnormalities anteroseptal and lateral leads
[2022-02-17] MEDS ORDERED: OPTIRAY 350 100ml IV ONE (21:49)
[2022-02-17] MEDS ORDERED: LORazepam 0.5 MG TAB PO PRN (21:54)
[2022-02-17] MEDS ORDERED: KETOROLAC TROMETHAMINE 15 MG/ML VIAL IV PRN (21:54)
[2022-02-17] MEDS ORDERED: LACTATED RINGER'S 1,000 ML IV ONE (21:54)
[2022-02-17] MEDS ORDERED: PROPOFOL IV EMULSION 10 MG/ML 20 ML VIAL IV ONE (23:19)
[2022-02-17] MEDS ORDERED: MIDAZOLAM HCL 1 MG/ML 2ML VIAL ONE (23:19)
[2022-02-17] MEDS ORDERED: fentaNYL citrate 100 MCG/2 ML VIAL ONE (23:19)
[2022-02-17] MEDS ORDERED: LIDOCAINE 2% MPF LOCAL 5 ML VIAL INFIL ONE (23:19)
--- NOTE | 2022-02-17 23:26 | Anesthesiology Consultation ---
Date of Service February 17, 2022 Assessment & Plan (1) Encounter for pre-operative examination: Chart Review Chart Review: Acceptable Risk for Surgery (emergency surgery) and Patient NOT seen in Pre Admission Testing Consults Requested none History Surgery Operation Date: 02/17/22 22:30 Proposed Procedures p Incision and Drainage Extremity - MAYRA CaM, MS Height/Weight Height: 5 ft 5 in Weight: 101.2 kg Allergies Allergy/AdvReac Type Severity Reaction Status Date / Time aloe vera Allergy Unknown Unknown Verified 02/17/22 21:01 Medications Home Medications Medication Instructions Recorded Confirmed Last Taken ammonium lactate 12 % lotion 1 applic topical UD PRN dry skin 02/17/22 02/17/22 Unknown on legs clopidogrel 75 mg tablet 75 mg PO QAM 02/17/22 02/17/22 02/17/22 dutasteride 0.5 mg capsule 0.5 mg PO QAM 02/17/22 02/17/22 02/17/22 empagliflozin 10 mg tablet 10 mg PO QAM 02/17/22 02/17/22 02/17/22 (Jardiance) esomeprazole magnesium 20 mg 20 mg PO DAILYBB 02/17/22 02/17/22 Unknown granules delayed release for susp mecobalamin 1,000 mcg-folic acid 1 tab PO QAM 02/17/22 02/17/22 02/17/22 200 mcg sublingual tablet (Opurity) metoprolol tartrate 25 mg tablet 25 mg PO QAM 02/17/22 02/17/22 02/17/22 olmesartan 40 mg tablet 40 mg PO QAM 02/17/22 02/17/22 02/17/22 pantoprazole 40 mg tablet,delayed 40 mg PO QAM 02/17/22 02/17/22 02/17/22 release rosuvastatin 10 mg tablet 10 mg PO QPM 02/17/22 02/17/22 02/16/22 Active Medications Generic Name Dose Route Start Last Admin Trade Name Freq PRN Reason Stop Dose Admin Daptomycin 475 mg/ Syringe 9.5 mls @ 4.75 mls/min 02/17/22 19:30 02/17/22 20:12 IV 02/19/22 19:29 4.75 mls/min Q24H HOANG Administration Protocol Past Medical History Medical History Diabetes mellitus Dyslipidemia GERD (gastroesophageal reflux disease) Neuropathy Obesity Osteomyelitis of right foot Social History Smoking Status: Never smoker Physical Exam Vital Signs Last Vital Signs Temp 37.1 C 02/17/22 16:23 Pulse 64 02/17/22 22:00 Resp 21 02/17/22 22:00 BP 120/78 02/17/22 22:00 Pulse Ox 97 02/17/22 22:00 O2 Del Method 02/17/22 22:42 Testing Laboratory Results 02/17/22 19:22 02/17/22 20:43 02/17/22 23:15 POC Glucose 143 H Electrocardiogram Date: 02/17/22 Findings: + NSR @ (68) and + T wave inversion (anterior leads) septal and lateral infarct
[2022-02-17] MEDS ORDERED: GLUCOSE 10 TAB/TUBE PO PRN (23:27)
[2022-02-17] MEDS ORDERED: GLUCOSE 40% GEL 15 GM TUBE PO PRN (23:27)
[2022-02-17] MEDS ORDERED: GLUCAGON FOR INJ 1 MG VIAL SQ PRN (23:27)
[2022-02-17] MEDS ORDERED: CARBOHYDRATES FOR HYPOGLYCEMIA PO PRN (23:27)
[2022-02-17] MEDS ORDERED: ACETAMINOPHEN 325 MG TAB PO PRN (23:27)
[2022-02-17] MEDS ORDERED: DEXTROSE 50% 50 ML SYRINGE IV PRN (23:27)
[2022-02-18] MEDS ORDERED: INSULIN ASPART PER UNIT SC SCH
--- NOTE | 2022-02-18 00:09 | History & Physical Bridge Note ---
Date of Service February 18, 2022 History & Physical Bridge Note I have examined the patient, reviewed the History & Physical and in the interval since the performance of the History & Physical I have noted the following changes of clinical significance: no changes noted
[2022-02-18] MEDS ORDERED: LIDOCAINE 1% LOCAL 20 ML VIAL ONE (00:40)
[2022-02-18] MEDS ORDERED: VANCOMYCIN HCL 1000MG/20ML VIAL ONE (00:54)
--- NOTE | 2022-02-18 01:08 | Post Operative Brief Note ---
Immediate Post Op Note v1 Date of Surgery February 18, 2022 Pre & Post Diagnosis Operation Date: 02/18/22 00:05 <No data on this case meets the specified criteria> I identified the patient and participated in the time-out.: Yes Procedure Operation Date: 02/18/22 00:05 <No data on this case meets the specified criteria> Surgeon Gianluca Jackson, KEREN, MS Glue Mixer none Estimated Blood Loss 5 Findings Consistent with Post-Op Diagnosis Necrotic right fifth toe, tracking purulent drainage from dorsal midfoot Anesthesia Type MAC Complications none
--- NOTE | 2022-02-18 01:09 | Post Operative Brief Note ---
Immediate Post Op Note v1 Date of Surgery February 18, 2022 Pre & Post Diagnosis Operation Date: 02/18/22 00:05 <No data on this case meets the specified criteria> I identified the patient and participated in the time-out.: Yes Procedure Operation Date: 02/18/22 00:05 <No data on this case meets the specified criteria> Surgeon Gianluca Jackson, KEREN, MS Ship'S Cook none Estimated Blood Loss 5 Findings Consistent with Post-Op Diagnosis necrotic fifth toe right foot. Purulent tracking across dorsal midfoot Anesthesia Type MAC
--- NOTE | 2022-02-18 01:21 | Operative Report ---
Post Operative Report Pre & Post Diagnosis Operation Date: 02/18/22 00:05 <No data on this case meets the specified criteria> I identified the patient and participated in the time-out.: Yes Procedure Operation Date: 02/18/22 00:05 <No data on this case meets the specified criteria> Surgeon Gianluca Jackson, DPM, MS Exotic Dancer none Estimated Blood Loss 5 Findings Consistent with Post-Op Diagnosis Wet gangrene Right foot fifth toe Specimens Fifth toe sent to micro and path Anesthesia Type MAC Description of Procedure History of present illness: Patient is a diabetic, 61 year old male who is seen for treatment of gangrene of the Right fifth toe. Patient relates no discomfort. He is seen for operative care including removal of non viable bone and soft tissue to right foot. All questions answered. Discussed procedure in detail and postoperative recovery. All potential risks, benefits, complications, alternatives, rehab, potential for incomplete relief of symptoms, need for further surgery, DVT, PE, , persistent pain, swelling, scarring, weakness, neurovascular, wound complications and potential for amputations were discussed with patient. Unwanted outcomes such as, but not limited to were reviewed including under correction, overcorrection, return of deformity, infection. All questions were answered. Patient has decided to proceed with procedure as indicated. Preoperative diagnosis: 1.) Diabetic ulcers right foot 2.) Gas gangrene Right foot Postoperative diagnosis: same Name of operation: 1.) Incision and drainage right foot 2.) Partial excision of Fifth ray Right foot 2.) Delayed primary closure Right foot wound Surgeon Dr. Jackson Exotic Dancer: None Anesthesia: Monitored anesthesia care Hemostasis: pneumatic ankle tourniquet as needed Estimated blood loss: minimal Procedure in detail: Under mild sedation the patient was brought in the operating room placed on the operating table in supine position. Following IV sedation the foot was prepped scrubbed and draped in usual aseptic manner. Attention was then directed to a diabetic ulcer with wet gangrene on the lateral right foot over the fifth toe. An ellipse incision was created over the fifth toe utilizing a sharp, sterile, #15 blade. The incision was deepened through subcutaneous tissue using sharp blunt dissection. Care was taken to identify and retract all vital neurovascular structures. All bleeders were ligated and cauterized necessary. The necrotic fifth toe is excised and placed on the back table. A portion of the right fifth proximal phalanx was sent to microbiology. The remainder of the excised right fifth toe was sent to pathology. The lateral incision was then elongated with a utilizing a sharp, sterile, #15 blade over the crepitus forefoot. The incision was deepened through subcutaneous tissue using sharp blunt dissection. Care was taken to identify and retract all vital neurovascular structures. All bleeders were ligated and cauterized necessary. Tracking was followed to the dorsal midfoot where copious purulent drainage was released. Deep Cultures were taken. 1 L of lactated Ringer was then irrigated with low flow into the wound. Further nonviable soft tissue was excised as needed. The wound was left open due to infection. Hemostasis was easily achieved and recommend CTA for further evaluation. Upon completion of the procedure the incision was dressed with dressing consisting of 4 x 4's Sagar Kerlix ABD. The Patient tolerated the procedure and anesthesia well. He was transferred to recovery room vital signs stable and vascular status intact all toes of the right foot following. Following a period of postoperative monitoring the patient will be readmitted to floor with the continuation of all preoperative orders. Patient return to the OR for continued debridement as needed as well as delayed primary closure. I attest to the content of the Intraoperative Record and any orders documented therein. Any exceptions are noted below.
--- NOTE | 2022-02-18 01:28 | Anesthesiology Progress Note ---
Date of Service February 18, 2022 Anesthesia Post Procedure Vital Signs Vital Signs: Temp Pulse Pulse Pulse Resp BP BP 02/17/22 23:00 02/17/22 23:00 36.7 C 73 16 185/81 H 02/17/22 22:42 02/17/22 22:00 64 21 120/78 02/17/22 16:23 37.1 C 78 18 117/60 Pulse Ox O2 Del Method 02/17/22 23:00 Room Air 02/17/22 23:00 99 Room Air 02/17/22 22:42 Room Air 02/17/22 22:00 97 Room Air 02/17/22 16:23 98 Room Air Pain Intensity Right Foot: Pain Intensity: 1 Transfer of Care Handoff Completed per policy Notes Mental Status: alert / awake / arousable Patient Amnestic to Procedure: Yes Nausea / Vomiting: adequately controlled Pain: adequately controlled Airway Patency, RR, SpO2: stable & adequate BP & HR: stable & adequate Hydration State: stable & adequate Anesthetic Complications: no major complications apparent and Pt Satisfied with anesthetic care Notes: The patient is awake and comfortable.
[2022-02-18] MEDS: PIPERACILLIN/TAZOBACTAM 4.5 GM in DEXTROSE 5% 100 ML IV SCH ×3 (02:28→17:58)
[2022-02-18] MEDS ORDERED: Nursing to Pharmacy Communication SCH (02:30)
[2022-02-18] MEDS: LANTUS PER UNIT CHARGE SQ SCH ×2 (02:58→21:23)
[2022-02-18] MEDS: OLMESARTAN MEDOXOMIL 40 MG TAB PO SCH (03:00)
[2022-02-18] MEDS ORDERED: MoRPHine SULFATE 4 MG/ML 1 ML CARP\\VIAL IV PRN (06:11)
[2022-02-18] MEDS: METOPROLOL TARTRATE 25 MG TAB PO SCH (06:24)
[2022-02-18] MEDS ORDERED: [UNRECOGNIZED DRUG - REMARK] PO SCH (06:30)
[2022-02-18 06:34] LABS: Basophils # (auto) 0.05 K/uL (0-0.2); Basophils % (auto) 0.4 %; Eosinophils # (auto) 0.16 K/uL (0-0.50); Eosinophils % (auto) 1.2 %; Hematocrit (blood only) 39.4 % (40.1-51.0); Hemoglobin 12.8 g/dl (14.0-18.0); Immature Granulocytes # (auto) 0.16 K/uL (0.00-0.02); Immature Granulocytes % (auto) 1.2 %; Lymphocytes # (auto) 0.87 K/uL (1.2-3.4); Lymphocytes % (auto) 6.5 %; Mean Corpuscular Hemoglobin 27.8 pg (25.0-34.0); Mean Corpuscular Hgb Conc 32.5 g/dL (32.0-36.0); Mean Corpuscular Volume 85.5 fL (80.0-100.0); Mean Platelet Volume 9.2 fL (9.4-12.4); Monocytes # (auto) 0.96 K/uL (0.24-0.82); Monocytes % (auto) 7.2 %; Neutrophils # (auto) 11.12 K/uL (1.4-6.5); Neutrophils % (auto) 83.5 %; Platelet Count 297 K/uL (130-400); RDW Coefficient of Variation 12.6 % (11.5-14.5); RDW Standard Deviation 39.1 fL (36.4-46.3); Red Blood Count 4.61 M/uL (4.63-6.08); White Blood Count 13.32 K/ul (4.8-10.8)
[2022-02-18 07:10] LABS: BUN Creatinine Ratio 15.3 (10-20); Calcium 8.9 mg/dl (8.5-10.1); Creatinine Clr Calc Pharmacy 120.9 ml/min; Est GFR (African American) 118.3 ml/min; Est GFR (Non-African American) 102.1 ml/min; Potassium 3.7 mmol/L (3.5-5.1)
--- NOTE | 2022-02-18 07:13 | CT Scan Report ---
CT foot RT w con HISTORY: 61 years-old Male eval for osseous involvement acute right foot pain with soft tissue infec tion. Clinical concern for osteomyelitis. COMPARISON: Right foot radiographs of same day TECHNIQUE: Multiple axial CT images of the right foot were obtained following the intravenous adminis tration of 85 mL Optiray 350. A dose lowering technique was used consistent with the principals of [employer]. FINDINGS: No acute fracture, dislocation or osseous erosion identified. Moderate to large enthesophytes of the calcaneus. Multifocal osteoarthritis is predominantly mild and mild to moderate. Chronic appearing os teochondral defect of the medial talar dome measures up to approximately 1.5 cm. Arterial calcificati ons are noted. No definite opaque foreign body. Tendons and ligaments are suboptimally evaluated by C T technique. No widening of the Lisfranc interval. There is mild to moderate diffuse subcutaneous edema. No abscess identified. Subcutaneous emphysema w ithin the fourth webspace and plantar aspect of the fifth toe also noted with possible plantar ulcer. Subcutaneous emphysema extends into the dorsal tissues of the forefoot. IMPRESSION: 1. Findings suggestive of cellulitis with subcutaneous emphysema of the dorsal lateral forefoot likel y associated with gas forming organism. No abscess identified. 2. No evidence of osteomyelitis. ACT 112: Negative or not required by law. The above report was generated using voice recognition software. It may contain grammatical, syntax o r spelling errors. Electronically signed by: Pipo Travis M.D. 02/18/2022 7:11 AM
[2022-02-18] MEDS: oxyCODONE HCL IR 5 MG TAB (IMMEDIATE RELEASE) PO PRN ×3 (07:33→21:23)
[2022-02-18] MEDS: PANTOprazole 40 MG TAB PO SCH (08:21)
[2022-02-18] MEDS: INSULIN ASPART PER UNIT SC SCH ×4 (08:42→21:27)
[2022-02-18] MEDS ORDERED: [UNRECOGNIZED DRUG - OTHER] PO SCH (09:00)
[2022-02-18] MEDS ORDERED: METOPROLOL TARTRATE 25 MG TAB PO SCH (09:00)
[2022-02-18] MEDS ORDERED: OLMESARTAN MEDOXOMIL 40 MG TAB PO SCH (09:00)
--- NOTE | 2022-02-18 16:05 | Hospitalist Progress Note ---
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 status, ISS BG goal 1 10-1 40, update hemoglobin A1c BPH past tobacco abuse DVT prophylaxis. SCDs possible procedure Hold Plavix in anticipation of procedure. Resume Plavix postprocedure once cleared by podiatry. Full code Patient [id number] requesting updates for providers. Ms. Elvira Rojas, contact #[phone]. Admission and Anticipated Discharge Date Admission Date: February 17, 2022 Subjective 02/18/2022 The patient was seen and examined in medical floor He is a status post incision and drainage's right foot, partial excision of fifth ray right foot Minimal pain but denies any other symptoms Review of Systems Review of Systems: All systems reviewed and are unremarkable except as noted below Physical Exam Physical Exam: Lying in bed comfortably Constitutional: well developed, well nourished, + ill appearing and + obese Eyes: PERRL, conjunctivae normal, anicteric sclerae ENMT: external ear and nose normal, oropharynx normal Neck: trachea midline, no thyromegaly Respiratory: no respiratory distress Auscultation: lungs clear to auscultation bilaterally Cardiovascular: Rate/Rhythm: regular rate and regular rhythm; not tachycardic Heart Sounds: normal S1 and normal S2; no murmur Extremities: + edema (Trace edema bilaterally more on the right than the left) Gastrointestinal (Abdomen): Inspection/Auscultation: normal bowel sounds; abdomen not distended Percussion/Palpation: abdomen soft; abdomen nontender Musculoskeletal: Status post incision and drainage of right foot, partial excision of fifth ray right foot and delayed primary closure right foot wound Neurologic: Alert awake and oriented x3. No focal motor deficit appreciated Lymphatic: no cervical or axillary lymphadenopathy Results & Data Results & Data ([facility]) Vital Signs (Past 12 Hours) Vital Signs Temp Pulse Resp BP Pulse Ox O2 Del Method 02/18/22 15:21 37.3 C 71 16 143/83 H 97 Room Air 02/18/22 07:20 Room Air 02/18/22 07:40 37.4 C 73 16 161/75 H 95 Room Air 02/18/22 06:24 70 158/77 H 02/18/22 05:10 36.7 C 73 16 188/77 H 97 02/18/22 04:08 36.9 C 67 16 151/83 H 96 Laboratory Results Short CBC 02/17/22 02/18/22 Range/Units 19:22 05:43 WBC 17.06 H 13.32 H (4.8-10.8) K/ul Hgb 14.1 12.8 L (14.0-18.0) g/dl Hct 43.1 39.4 L (40.1-51.0) % Plt Count 316 297 (130-400) K/uL BMP 02/17/22 02/17/22 02/18/22 19:22 20:43 05:43 Sodium 136 139 Potassium TNP 3.6 3.7 Chloride 100 104 Carbon Dioxide 23 18 L BUN 16 11 Creatinine 0.95 0.72 Glucose 216 H 144 H Calcium 9.8 8.9 Liver Function 02/17/22 02/17/22 Range/Units 19:22 20:43 Total Bilirubin 0.8 (0.2-1.0) mg/dl AST TNP 18 ALT 21 (7-52) U/L Alkaline Phosphatase 82 (34-104) U/L Albumin 3.4 (3.4-5.0) gm/dl Medications Administered Current Inpatient Medications Acetaminophen (Acetaminophen 325 Mg Tab) 650 mg PO Q4H PRN PRN Reason: pain/fever Stop: 03/19/22 23:26 Dextrose (Dextrose 50% 50 Ml Syringe) 25 - 50 ml IV UD PRN; Protocol PRN Reason: Hypoglycemia Protocol Stop: 03/19/22 23:26 Glucagon (Glucagon For Inj 1 Mg Vial) 1 mg SQ UD PRN; Protocol PRN Reason: Hypoglycemia Protocol Stop: 03/19/22 23:26 Glucose (Glucose 40% Gel 15 Gm Tube) 15 - 30 gm PO UD PRN; Protocol PRN Reason: Hypoglycemia Protocol Stop: 03/19/22 23:26 Glucose (Glucose 10 Tab/Tube) 4 - 8 tab PO UD PRN; Protocol PRN Reason: Hypoglycemia Treatment Stop: 03/19/22 23:26 Daptomycin 475 mg/ Syringe 9.5 mls @ 4.75 mls/min IV Q24H [facility]; Protocol Stop: 02/19/22 19:29 Last Admin: 02/17/22 20:12 Dose: 4.75 mls/min Lactated Ringer's (Lr) 1,000 mls @ 50 mls/hr IV .Q20H [facility] Stop: 02/18/22 17:53 Last Admin: 02/18/22 03:57 Dose: 50 mls/hr Promethazine HCl 12.5 mg/ (Sodium Chloride) 50.5 mls @ 202 mls/hr IV Q6H PRN PRN Reason: Nausea And Vomiting Stop: 03/19/22 21:53 Piperacillin Sod/Tazobactam (Sod 4.5 gm/ Dextrose) 120 mls @ 30 mls/hr IV Q8H [facility]; Protocol Stop: 02/25/22 01:59 Last Infusion: 02/18/22 14:08 Dose: Infused Insulin Aspart (Insulin Aspart Per Unit) 0 units SC ACHS [facility] Stop: 03/20/22 07:29 Last Admin: 02/18/22 12:31 Dose: Not Given Insulin Glargine (Lantus Per Unit Charge) 5 units SQ HS [facility] Stop: 03/19/22 23:26 Last Admin: 02/18/22 02:58 Dose: 5 units Lorazepam (Lorazepam 0.5 Mg Tab) 0.5 mg PO TID PRN PRN Reason: Anxiety Stop: 03/19/22 21:53 Metoprolol Tartrate (Metoprolol Tartrate 25 Mg Tab) 25 mg PO QAM [facility] Stop: 03/20/22 06:14 Last Admin: 02/18/22 06:24 Dose: 25 mg Miscellaneous (Dutasteride: Order Awaiting Action) 1 each N/A QS [facility] Stop: 03/20/22 07:59 Last Admin: 02/18/22 15:25 Dose: Not Given Miscellaneous (Carbohydrates For Hypoglycemia ) 15 - 30 gm PO UD PRN PRN Reason: Hypoglycemia Protocol Stop: 03/19/22 23:26 Morphine Sulfate (Morphine Sulfate 4 Mg/Ml 1 Ml Carp\Vial) 4 mg IV Q4H PRN PRN Reason: Pain Stop: 03/04/22 06:10 Olmesartan (Olmesartan Medoxomil 40 Mg Tab) [facility]: 03/20/22 02:19 Last Admin: 02/18/22 03:00 Dose: 40 mg Oxycodone HCl (Oxycodone Hcl Ir 5 Mg Tab (Immediate Release)) 5 mg PO Q4H PRN PRN Reason: Pain Stop: 03/03/22 21:53 Last Admin: 02/18/22 07:33 Dose: 5 mg Pantoprazole Sodium (Pantoprazole 40 Mg Tab) 40 [facility] [place] Stop: 03/20/22 08:59 Last Admin: 02/18/22 08:21 Dose: 40 mg
[2022-02-18] MEDS: DAPTOmycin 475 MG in SYRINGE 0 ML IV SCH (18:13)
[2022-02-18] MEDS ORDERED: OPTIRAY 320 500ml IV ONE (20:23)
--- NOTE | 2022-02-18 21:52 | CT Scan Report ---
CT ANGIOGRAM OF THE ABDOMEN, PELVIS, BILATERAL LOWER EXTREMITIES HISTORY: Right foot wound. assess arterial flow in legs/feet TECHNIQUE: Multiaxial CT images of the abdomen, pelvis, bilateral lower extremities were performed fo llowing the intravenous ministration of contrast. Maximum intensity projection images were also obtai ruby. COMPARISON STUDY: Right foot CT 02/17/2022. FINDINGS: Interval amputation of the right fifth toe. Soft tissue gas within the dorsum of the forefo ot and fourth toe is again noted. This could be due to the postoperative change or a gas-forming orga nism there are few bibasilar linear densities consistent with subsegmental atelectasis. No pneumoperi toneum. No pneumatosis. Small left-sided hydrocele is noted. Multiple small gallstones. No gallbladde r wall thickening. The liver, spleen, adrenal glands, and pancreas are unremarkable. No retroperitone al lymphadenopathy. 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 Mil d to moderate bilateral cortical renal thinning which is likely chronic. Otherwise, the kidneys enhan ce normally. No hydronephrosis. Residual contrast within the bladder from the recent CT examination. The prostate gland is mildly enlarged. No bowel wall thickening or obstruction. Normal appendix. Mild to moderate atherosclerotic plaque within the normal caliber abdominal aorta and iliac arteries. No evidence for an aortic dissection. No central venous stenosis within the celiac or superior mesen teric arteries. There is a focal area of high-grade stenosis within the proximal left inferior mesent pedro luis artery on image 280. There are 3 renal arteries bilaterally. Some of these renal arteries demons trate mild to moderate stenosis. No significant stenosis or occlusion within the bilateral iliac sue karis. Scattered calcified plaque within the right common and superficial femoral arteries. There is mild to moderate multifocal stenosis throughout the majority of the mid to distal right superficial femoral artery. There is a focal area of high-grade stenosis within the distal right superficial femoral sue ry on image 752. Mild narrowing throughout the right popliteal artery. There is a focal area of high- grade stenosis at the distal right tibioperoneal trunk. The right anterior tibial artery is patent. M ultifocal narrowing with possible occlusion of the distal right posterior tibial artery. The right pe roneal artery is diminutive and may be occluded distally. The left common femoral artery is patent. Multifocal moderate to severe narrowing within the mid to d istal left superficial femoral artery. This is most pronounced within the distal left superficial fem oral artery which demonstrates an area of 90% stenosis on image 748. There is mild multifocal narrowi ng within the left popliteal artery. Focal high-grade stenosis at the left tibioperoneal trunk. The d istal anterior tibial artery and distal peroneal arteries are diminutive and likely occluded. Calcifi ed plaque within the distal posterior tibial artery which limits evaluation. No definite occlusion wi thin the left posterior tibial artery. IMPRESSION: 1. Interval amputation of the right fifth toe. Soft tissue gas surrounding the fourth toe and dorsum of the forefoot is again noted. This could be due to postoperative change or a gas-forming organism. 2. Cholelithiasis. 3. No significant stenosis or dissection within the aorta or iliac arteries. 4. Focal area of high-grade stenosis of the proximal inferior mesenteric artery. 5. Multifocal stenoses within the bilateral lower extremity arterial systems as described above . 6. The distal right posterior tibial artery, distal left anterior tibial artery, and distal bilateral peroneal arteries are likely occluded. 7. Additional findings as described above. ACT 112: Negative or not required by law. Electronically signed by: Mau Hewitt M.D. 02/18/2022 9:49 PM
--- NOTE | 2022-02-18 22:24 | Orthopedic Progress Note ---
Date of Service February 18, 2022 Assessment & Plan (1) Diabetic foot infection: Plan: Awaiting Cultures and sensitivities for out patient Abx therapy. Awaiting CTA results. Awaiting soft tissue rebound for possible further debridement / delayed primary closure. Admission and Anticipated Discharge Date Admission Date: February 17, 2022 Subjective Patient status post day 1. He notes minimal discomfort. Patient is on his way to [facility] this evening. Physical Exam Physical Exam: Dressing intact. Results & Data ([facility]) Vital Signs (Past 12 Hours) Vital Signs Temp Pulse Pulse Resp BP Pulse Ox O2 Del Method 02/18/22 21:45 36.7 C 68 18 171/82 H 96 Room Air 02/18/22 15:21 37.3 C 71 16 143/83 H 97 Room Air
[2022-02-19] MEDS: PIPERACILLIN/TAZOBACTAM 4.5 GM in DEXTROSE 5% 100 ML IV SCH ×3 (02:28→18:14)
--- NOTE | 2022-02-19 06:11 | Electrocardiogram Report ---
Test Reason : Blood Pressure : / mmHG Vent. Rate : 068 BPM Atrial Rate : 068 BPM P-R Int : 146 ms QRS Dur : 080 ms QT Int : 390 ms P-R-T Axes : -13 045 147 degrees QTc Int : 414 ms Normal sinus rhythm Anterior infarct T wave abnormality, consider anterior ischemia T wave abnormality, consider lateral ischemia Abnormal ECG No previous ECGs available Confirmed by Yovanny Ortiz ([id number]) on 02/19/2022 6:11:04 AM Referred By: Jerry Pavon Confirmed By:Yovanny Ortiz
[2022-02-19] MEDS: METOPROLOL TARTRATE 25 MG TAB PO SCH (08:29)
[2022-02-19] MEDS: PANTOprazole 40 MG TAB PO SCH (08:30)
[2022-02-19] MEDS: OLMESARTAN MEDOXOMIL 40 MG TAB PO SCH (08:30)
[2022-02-19] MEDS: NSS + 20MEQ KCL 20 MEQ/1,000 ML BAG IV SCH ×2 (08:35→21:18)
[2022-02-19] MEDS: oxyCODONE HCL IR 5 MG TAB (IMMEDIATE RELEASE) PO PRN ×2 (08:41→21:29)
[2022-02-19 09:06] LABS: Basophils # (auto) 0.05 K/uL (0-0.2); Basophils % (auto) 0.4 %; Eosinophils % (auto) 2.2 %; Hematocrit (blood only) 38.7 % (40.1-51.0); Hemoglobin 12.4 g/dl (14.0-18.0); Immature Granulocytes # (auto) 0.19 K/uL (0.00-0.02); Immature Granulocytes % (auto) 1.4 %; Lymphocytes # (auto) 1.26 K/uL (1.2-3.4); Lymphocytes % (auto) 9.3 %; Mean Corpuscular Hemoglobin 27.7 pg (25.0-34.0); Mean Corpuscular Volume 86.6 fL (80.0-100.0); Mean Platelet Volume 9.2 fL (9.4-12.4); Monocytes # (auto) 0.96 K/uL (0.24-0.82); Monocytes % (auto) 7.1 %; Neutrophils # (auto) 10.75 K/uL (1.4-6.5); Neutrophils % (auto) 79.6 %; Platelet Count 314 K/uL (130-400); RDW Coefficient of Variation 12.7 % (11.5-14.5); RDW Standard Deviation 40.1 fL (36.4-46.3); Red Blood Count 4.47 M/uL (4.63-6.08); White Blood Count 13.51 K/ul (4.8-10.8)
[2022-02-19 09:19] LABS: BUN Creatinine Ratio 13.3 (10-20); Calcium 9.1 mg/dl (8.5-10.1); Est GFR (African American) 116.4 ml/min; Est GFR (Non-African American) 100.4 ml/min; Potassium 4.1 mmol/L (3.5-5.1)
[2022-02-19] MEDS: INSULIN ASPART PER UNIT SC SCH ×4 (09:53→21:30)
--- NOTE | 2022-02-19 13:04 | Consultation ---
Date of Consultation February 19, 2022 Assessment & Plan (1) Peripheral arterial disease: Pt with severe R foot infection with gas gangrene after trauma to his foot 1 week ago. Has undergone orthopedic surgery to address this. He has significant infrapopliteal arterial disease, but does not require intervention unless his foot wound is nonhealing. Please call next week if his wound does not begin to show signs of healing, and will be happy to reeval the patient. History of Present Illness Reason for Consultation: PAD Attending Physician: Reji Campbell MD History of Present Illness 61 yo m with hx of DMII, dyslipidemia, GERD, neuropathy, HTN, admitted with gas gangrene of R foot, seen in consultation today for PAD noted on imaging. Pt states he struck his R 5th toe on a doorframe about 1 week ago. States it began swelling and becoming painful a few days later. Came to [facility] after going to his PCP who sent him to ED. Underwent I&D and 5th ray resection of R foot by Dr Jackson. Pt states no hx of PAD. States he will sometimes have some calf discomfort when ambulating, but is unable to tell how far he walks when this occurs. States it happens intermittently and does not keep him from doing his normal daily activities. states he had a L heel wound in the past, which finally healed after many months. Denies SIERRA, fever, cehst pain, SOB, abd pain, N/V, rest pain, other complaints. CTA abd/pelvis with runoff demonstrates mild arterial disease in pelvis and above knee. Demonstrates more signficiant disease infrapopliteal. Allergies Allergy/AdvReac Type Severity Reaction Status Date / Time aloe vera Allergy Unknown Unknown Verified 02/17/22 21:01 Home Medications Medication Instructions Recorded Confirmed Type ammonium lactate 12 % lotion 1 applic topical UD PRN dry skin 02/17/22 02/17/22 History on legs clopidogrel 75 mg tablet 75 mg PO QAM 02/17/22 02/17/22 History dutasteride 0.5 mg capsule 0.5 mg PO QAM 02/17/22 02/17/22 History empagliflozin 10 mg tablet 10 mg PO QAM 02/17/22 02/17/22 History (Jardiance) esomeprazole magnesium 20 mg 20 mg PO DAILYBB 02/17/22 02/17/22 History granules delayed release for susp mecobalamin 1,000 mcg-folic acid 1 tab PO QAM 02/17/22 02/17/22 History 200 mcg sublingual tablet (Opurity) metoprolol tartrate 25 mg tablet 25 mg PO QAM 02/17/22 02/17/22 History olmesartan 40 mg tablet 40 mg PO QAM 02/17/22 02/17/22 History pantoprazole 40 mg tablet,delayed 40 mg PO QAM 02/17/22 02/17/22 History release rosuvastatin 10 mg tablet 10 mg PO QPM 02/17/22 02/17/22 History Patient History Medical History (Updated 02/19/22 @ 13:13 by Dea Cordon PA-C) Diabetes mellitus Dyslipidemia GERD (gastroesophageal reflux disease) Neuropathy Obesity Osteomyelitis of right foot Peripheral arterial disease Stroke July 2020 Right upper extremity weakness Family History Other Family history non-contributory Social History Smoking Status: Never smoker Smoking End Date: "one and a half years ago"; Do You Dip or Chew Tobacco: No; Hx Alcohol Use: No Hx Substance Use: No Preferred Language: Egyptian Communication Ability: Effective Potato Chip Maker Required: No Beliefs That Will Affect Care: None marital status: Single Current Living Situation: Family Current Living Situation Comment: Nephew How many Children do You have: 9 Other Information That Helps Us Care for You: No Feels Safe at Home: Yes Safety Concerns: Feels Safe At This Time Assistive Devices: Walker and Wheelchair Review of Systems Review of Systems: All systems reviewed & are unremarkable except as noted in HPI & below Physical Exam Constitutional: WD/WN, vitals as above cooperative and comfortable; not in distress ENMT: Ears: no hearing impairment Neck: trachea midline Respiratory: normal respiratory effort; no respiratory distress Auscultation: lungs clear to auscultation bilaterally and + diminished lung sounds Cardiovascular: Rate/Rhythm: regular rate and regular rhythm Vessels: posterior tibial pulses present (LLE +1, RLE not able ot assess), dorsalis pedis pulses present (LLE nonpalpable, RLE unable to assess) and radial pulses present; + abnormal peripheral pulses Extremities: normal capillary refill and + edema Gastrointestinal (Abdomen): Inspection/Auscultation: abdomen normal to inspection and normal bowel sounds Percussion/Palpation: abdomen soft; abdomen nontender Musculoskeletal: no cyanosis or clubbing, extremities motor strength 5/5 Skin: + crusts (L lower leg) R foot dressing intact. Neurologic: moves all extremities and awake; no focal motor deficits and not confused Psychiatric: Orientation: alert and oriented x 3 Affect: + irritable affect Results & Data ([facility]) Vital Signs (Past 12 Hours) Vital Signs Temp Pulse Resp BP BP Pulse Ox O2 Del Method 02/19/22 10:01 149/73 H 02/19/22 08:02 36.9 C 66 20 180/85 H 95 Room Air
--- NOTE | 2022-02-19 15:22 | Hospitalist Progress Note ---
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 Including other findings as in the report Appreciate vascular surgery input and recommendation Conservative management H/O CVA 2020 No acute findings Hypertension, stable Continue with current medications Hyperlipidemia on statin Rx DM2 on oral medications, well-controlled as of recent hemoglobin A1c of 6.31 Aug 2021 With diabetic neuropathy and diabetic foot ulcers Basal bolus insulin adjusted for n.p.o. status, ISS BG goal 1 10-1 40, update hemoglobin A1c BPH past tobacco abuse DVT prophylaxis. SCDs possible procedure Hold Plavix in anticipation of procedure. Resume Plavix postprocedure once cleared by podiatry. Full code Patient [id number] requesting updates for providers. Ms. Elvira Rojas, contact #[phone]. Admission and Anticipated Discharge Date Admission Date: February 17, 2022 Subjective 02/18/2022 The patient was seen and examined in medical floor He is a status post incision and drainage's right foot, partial excision of fifth ray right foot Minimal pain but denies any other symptoms 02/19/2022 Patient was seen and examined in medical floor He complains to have minimal pain involving the right foot but denies any other significant symptom Denies any fever and or chills, no nausea no vomiting Review of Systems Review of Systems: All systems reviewed and are unremarkable except as noted below Physical Exam Physical Exam: Lying in bed comfortably Constitutional: well developed, well nourished, + ill appearing and + obese Eyes: PERRL, conjunctivae normal, anicteric sclerae ENMT: external ear and nose normal, oropharynx normal Neck: trachea midline, no thyromegaly Respiratory: no respiratory distress Auscultation: lungs clear to auscultation bilaterally Cardiovascular: Rate/Rhythm: regular rate and regular rhythm; not tachycardic Heart Sounds: normal S1 and normal S2; no murmur Extremities: + edema (Trace edema bilaterally more on the right than the left) Gastrointestinal (Abdomen): Inspection/Auscultation: normal bowel sounds; abdomen not distended Percussion/Palpation: abdomen soft; abdomen nontender Musculoskeletal: No acute arthritis in any joint right foot is bandaged Neurologic: Alert awake and oriented x3 Lymphatic: no cervical or axillary lymphadenopathy Results & Data Results & Data ([facility]) Vital Signs (Past 12 Hours) Vital Signs Temp Pulse Pulse Resp BP BP Pulse Ox 02/19/22 15:07 37.2 C 63 20 164/72 H 97 02/19/22 10:01 149/73 H 02/19/22 08:02 36.9 C 66 20 180/85 H 95 O2 Del Method 02/19/22 15:07 02/19/22 10:01 02/19/22 08:02 Room Air Laboratory Results Short CBC 02/19/22 Range/Units 08:02 WBC 13.51 H (4.8-10.8) K/ul Hgb 12.4 L (14.0-18.0) g/dl Hct 38.7 L (40.1-51.0) % Plt Count 314 (130-400) K/uL BMP 02/19/22 08:02 Sodium 140 Potassium 4.1 Chloride 104 Carbon Dioxide 20 L BUN 10 Creatinine 0.75 Glucose 125 H Calcium 9.1 Medications Administered Current Inpatient Medications Acetaminophen (Acetaminophen 325 Mg Tab) 650 mg PO Q4H PRN PRN Reason: pain/fever Stop: 03/19/22 23:26 Dextrose (Dextrose 50% 50 Ml Syringe) 25 - 50 ml IV UD PRN; Protocol PRN Reason: Hypoglycemia Protocol Stop: 03/19/22 23:26 Glucagon (Glucagon For Inj 1 Mg Vial) 1 mg SQ UD PRN; Protocol PRN Reason: Hypoglycemia Protocol Stop: 03/19/22 23:26 Glucose (Glucose 40% Gel 15 Gm Tube) 15 - 30 gm PO UD PRN; Protocol PRN Reason: Hypoglycemia Protocol Stop: 03/19/22 23:26 Glucose (Glucose 10 Tab/Tube) 4 - 8 tab PO UD PRN; Protocol PRN Reason: Hypoglycemia Treatment Stop: 03/19/22 23:26 Daptomycin 475 mg/ Syringe 9.5 mls @ 4.75 mls/min IV Q24H [facility]; Protocol Stop: 02/19/22 19:29 Last Admin: 02/18/22 18:13 Dose: 4.75 mls/min Promethazine HCl 12.5 mg/ (Sodium Chloride) 50.5 mls @ 202 mls/hr IV Q6H PRN PRN Reason: Nausea And Vomiting Stop: 03/19/22 21:53 Piperacillin Sod/Tazobactam (Sod 4.5 gm/ Dextrose) 120 mls @ 30 mls/hr IV Q8H [facility]; Protocol Stop: 02/25/22 01:59 Last Infusion: 02/19/22 14:52 Dose: Infused Potassium Chloride/Sodium Chloride (Normal Saline W/20 Meq Kcl) 20 meq in 1,000 mls @ 80 mls/hr IV .[id number] [facility]; Protocol Stop: 02/20/22 08:59 Last Admin: 02/19/22 08:35 Dose: 80 mls/hr Insulin Aspart (Insulin Aspart Per Unit) 0 units SC ACHS [facility] Stop: 03/20/22 07:29 Last Admin: 02/19/22 13:11 Dose: 1 units Insulin Glargine (Lantus Per Unit Charge) 5 units SQ HS [facility] Stop: 03/19/22 23:26 Last Admin: 02/18/22 21:23 Dose: 5 units Lorazepam (Lorazepam 0.5 Mg Tab) 0.5 mg PO TID PRN PRN Reason: Anxiety Stop: 03/19/22 21:53 Metoprolol Tartrate (Metoprolol Tartrate 25 Mg Tab) [facility] Stop: 03/20/22 06:14 Last Admin: 02/19/22 08:29 Dose: 25 mg Miscellaneous (Dutasteride: Order Awaiting Action) 1 each N/A QS [facility] Stop: 03/20/22 07:59 Last Admin: 02/19/22 08:30 Dose: Not Given Miscellaneous (Carbohydrates For Hypoglycemia ) 15 - 30 gm PO UD PRN PRN Reason: Hypoglycemia Protocol Stop: 03/19/22 23:26 Morphine Sulfate (Morphine Sulfate 4 Mg/Ml 1 Ml Carp\Vial) 4 mg IV Q4H PRN PRN Reason: Pain Stop: 03/04/22 06:10 Olmesartan (Olmesartan Medoxomil 40 Mg Tab) [facility] Stop: 03/20/22 02:19 Last Admin: 02/19/22 08:30 Dose: 40 mg Oxycodone HCl (Oxycodone Hcl Ir 5 Mg Tab (Immediate Release)) 5 mg PO Q4H PRN PRN Reason: Pain Stop: 03/03/22 21:53 Last Admin: 02/19/22 08:41 Dose: 5 mg Pantoprazole Sodium (Pantoprazole 40 Mg Tab) 40 mg PO QAM [facility] Stop: 03/20/22 08:59 Last Admin: 02/19/22 08:30 Dose: 40 mg
[2022-02-19] MEDS ORDERED: HEPARIN SOD 5,000 UNIT/0.5 ML VIAL SQ STA (15:31)
--- NOTE | 2022-02-19 18:47 | Orthopedic Progress Note ---
Date of Service February 19, 2022 Assessment & Plan (1) Diabetic foot infection: Plan: Reviewed CTA results and images. I believe the findings of gas are related to post operative changes. There is concern for perfusion to wound as little bleeding is recognized. Deficiency in flow may limit effectiveness of abx and in healing. Appreciate vascular consult for consideration of angioplasty. Reviewed micro results, positive excised bone culture showing Staph. Patient is candidate for further OR wound debridement and will continue to monitor wound daily. Thank you for allowing me to participate in the care of this Patient. Admission and Anticipated Discharge Date Admission Date: February 17, 2022 Subjective Patient Day #2 status post Right foot fifth toe amputation with adjacent I&D. He notes some discomfort to bottom of foot. Patient has no other complaints. Review of Systems Review of Systems: All systems reviewed & are unremarkable except as noted in HPI & below Physical Exam Physical Exam: Dressing intact. Constitutional: WD/WN, vitals as above Eyes: PERRL, conjunctivae normal, anicteric sclerae ENMT: external ear and nose normal, oropharynx normal Neck: trachea midline, no thyromegaly Respiratory: normal respiratory effort Cardiovascular: Capillary refill time within normal limits to toes of right foot. Skin: Right foot open fifth metatarsal amputation. Minimal base necrosis. Psychiatric: Orientation: alert and oriented x 3 Results & Data ([facility]) Vital Signs (Past 12 Hours) Vital Signs Temp Pulse Pulse Resp BP BP Pulse Ox 02/19/22 15:07 37.2 C 63 20 164/72 H 97 02/19/22 10:01 149/73 H 02/19/22 08:02 36.9 C 66 20 180/85 H 95 O2 Del Method 02/19/22 15:07 02/19/22 10:01 02/19/22 08:02 Room Air Diagnostic Findings CT ANGIOGRAM OF THE ABDOMEN, PELVIS, BILATERAL LOWER EXTREMITIES HISTORY: Right foot wound. assess arterial flow in legs/feet TECHNIQUE: Multiaxial CT images of the abdomen, pelvis, bilateral lower extremities were performed following the intravenous ministration of contrast. Maximum intensity projection images were also obtained. COMPARISON STUDY: Right foot CT 02/17/2022. FINDINGS: Interval amputation of the right fifth toe. Soft tissue gas within the dorsum of the forefoot and fourth toe is again noted. This could be due to the postoperative change or a gas-forming organism there are few bibasilar linear densities consistent with subsegmental atelectasis. No pneumoperitoneum. No pneumatosis. Small left-sided hydrocele is noted. Multiple small gallstones. No gallbladder wall thickening. The liver, spleen, adrenal glands, and pancreas are unremarkable. No retroperitoneal lymphadenopathy. 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 Mild to moderate bilateral cortical renal thinning which is likely chronic. Otherwise, the kidneys enhance normally. No hydronephrosis. Residual contrast within the bladder from the recent CT examination. The prostate gland is mildly enlarged. No bowel wall thickening or obstruction. Normal appendix. Mild to moderate atherosclerotic plaque within the normal caliber abdominal aorta and iliac arteries. No evidence for an aortic dissection. No central venous stenosis within the celiac or superior mesenteric arteries. There is a focal area of high-grade stenosis within the proximal left inferior mesenteric artery on image 280. There are 3 renal arteries bilaterally. Some of these renal arteries demonstrate mild to moderate stenosis. No significant stenosis or occlusion within the bilateral iliac arteries. Scattered calcified plaque within the right common and superficial femoral arteries. There is mild to moderate multifocal stenosis throughout the majority of the mid to distal right superficial femoral artery. There is a focal area of high-grade stenosis within the distal right superficial femoral artery on image 752. Mild narrowing throughout the right popliteal artery. There is a focal area of high-grade stenosis at the distal right tibioperoneal trunk. The right anterior tibial artery is patent. Multifocal narrowing with possible occlusion of the distal right posterior tibial artery. The right peroneal artery is diminutive and may be occluded distally. The left common femoral artery is patent. Multifocal moderate to severe narrowing within the mid to distal left superficial femoral artery. This is most pronounced within the distal left superficial femoral artery which demonstrates an area of 90% stenosis on image 748. There is mild multifocal narrowing within the left popliteal artery. Focal high-grade stenosis at the left tibioperoneal trunk. The distal anterior tibial artery and distal peroneal arteries are diminutive and likely occluded. Calcified plaque within the distal posterior tibial artery which limits evaluation. No definite occlusion within the left posterior tibial artery. IMPRESSION: 1. Interval amputation of the right fifth toe. Soft tissue gas surrounding the fourth toe and dorsum of the forefoot is again noted. This could be due to postoperative change or a gas-forming organism. 2. Cholelithiasis. 3. No significant stenosis or dissection within the aorta or iliac arteries. 4. Focal area of high-grade stenosis of the proximal inferior mesenteric artery. 5. Multifocal stenoses within the bilateral lower extremity arterial systems as described above . 6. The distal right posterior tibial artery, distal left anterior tibial artery, and distal bilateral peroneal arteries are likely occluded. 7. Additional findings as described above. ACT 112: Negative or not required by law. Electronically signed by: Mau Hewitt M.D. 02/18/2022 9:49 PM Dictated:02/18/222132 Transcribed: 02/18/222132
[2022-02-19] MEDS: HEPARIN SOD 5,000 UNIT/0.5 ML VIAL SQ SCH (21:31)
[2022-02-19] MEDS: LANTUS PER UNIT CHARGE SQ SCH (21:31)
[2022-02-20] MEDS: PIPERACILLIN/TAZOBACTAM 4.5 GM in DEXTROSE 5% 100 ML IV SCH ×3 (01:28→18:28)
[2022-02-20] MEDS: PANTOprazole 40 MG TAB PO SCH (08:03)
[2022-02-20] MEDS: CLOPIDOGREL BISULFATE 75 MG TAB PO SCH (08:03)
[2022-02-20] MEDS: OLMESARTAN MEDOXOMIL 40 MG TAB PO SCH (08:03)
[2022-02-20] MEDS: METOPROLOL TARTRATE 25 MG TAB PO SCH (08:03)
[2022-02-20] MEDS: HEPARIN SOD 5,000 UNIT/0.5 ML VIAL SQ SCH ×2 (08:04→21:54)
[2022-02-20] MEDS: oxyCODONE HCL IR 5 MG TAB (IMMEDIATE RELEASE) PO PRN (08:10)
[2022-02-20] MEDS: INSULIN ASPART PER UNIT SC SCH ×4 (09:19→21:55)
--- NOTE | 2022-02-20 15:01 | Hospitalist Progress Note ---
Date of Service February 20, 2022 Assessment & Plan (1) Diabetic foot infection: Plan: Diabetic foot infection right No overt sepsis for now CS, Daptomycin, Zosyn Status post incision and drainage of right foot, partial excision of fifth ray right foot and delayed primary closure of right foot wound on 02/18/2022 Management as per machine inspector and orthopedic surgeon Wound culture is growing staph species-sensitivities pending We will continue current antibiotic for now Await further assessment by the orthopedic surgeon We will start PT and OT evaluation Peripheral arterial occlusion CTA did not show:The distal right posterior tibial artery, distal left anterior tibial artery, and distal bilateral peroneal arteries are likely occluded. Including other findings as in the report Appreciate vascular surgery input and recommendation Conservative management H/O CVA 2020 No acute findings Hypertension, stable Continue with current medications Hyperlipidemia on statin Rx DM2 on oral medications, well-controlled as of recent hemoglobin A1c of 6.31 Aug 2021 With diabetic neuropathy and diabetic foot ulcers Basal bolus insulin adjusted for n.p.o. status, ISS BG goal 1 10-1 40, update hemoglobin A1c BPH past tobacco abuse DVT prophylaxis. SCDs possible procedure Hold Plavix in anticipation of procedure. Resume Plavix postprocedure once cleared by podiatry. Full code Patient [id number] requesting updates for providers. Papi Elvira Rojas, contact #[phone]. Admission and Anticipated Discharge Date Admission Date: February 17, 2022 Subjective 02/18/2022 The patient was seen and examined in medical floor He is a status post incision and drainage's right foot, partial excision of fifth ray right foot Minimal pain but denies any other symptoms 02/19/2022 Patient was seen and examined in medical floor He complains to have minimal pain involving the right foot but denies any other significant symptom Denies any fever and or chills, no nausea no vomiting 02/20/2022 The patient was seen and examined in medical floor He has been feeling better but remains in pain in right foot Will have another debridement as per the machine inspector note Denies any significant symptoms Review of Systems Review of Systems: All systems reviewed and are unremarkable except as noted below Physical Exam Physical Exam: Lying in bed comfortably Constitutional: well developed, well nourished, + ill appearing and + obese Eyes: PERRL, conjunctivae normal, anicteric sclerae ENMT: external ear and nose normal, oropharynx normal Neck: trachea midline, no thyromegaly Respiratory: no respiratory distress Auscultation: lungs clear to auscultation bilaterally Cardiovascular: Rate/Rhythm: regular rate and regular rhythm; not tachycardic Heart Sounds: normal S1 and normal S2; no murmur Extremities: + edema (Tra ce edema bilaterally more on the right than the left) Gastrointestinal (Abdomen): Inspection/Auscultation: normal bowel sounds; abdomen not distended Percussion/Palpation: abdomen soft; abdomen nontender Musculoskeletal: Right foot is bandaged Neurologic: Alert, awake and oriented x3. Generally weak but no focal motor neurodeficit Lymphatic: no cervical or axillary lymphadenopathy Results & Data Results & Data ([facility]) Vital Signs (Past 12 Hours) Vital Signs Temp Pulse Resp BP Pulse Ox O2 Del Method 02/20/22 07:58 Room Air 02/20/22 07:42 37.1 C 70 18 179/84 H 96 Room Air Medications Administered Current Inpatient Medications Acetaminophen (Acetaminophen 325 Mg Tab) 650 mg PO Q4H PRN PRN Reason: pain/fever Stop: 03/19/22 23:26 Clopidogrel Bisulfate (Clopidogrel Bisulfate 75 Mg Tab) 75 mg PO QAM HOANG Stop: 03/22/22 08:59 Last Admin: 02/20/22 08:03 Dose: 75 mg Dextrose (Dextrose 50% 50 Ml Syringe) 25 - 50 ml IV UD PRN; Protocol PRN Reason: Hypoglycemia Protocol Stop: 03/19/22 23:26 Glucagon (Glucagon For Inj 1 Mg Vial) 1 mg SQ UD PRN; Protocol PRN Reason: Hypoglycemia Protocol Stop: 03/19/22 23:26 Glucose (Glucose 40% Gel 15 Gm Tube) 15 - 30 gm PO UD PRN; Protocol PRN Reason: Hypoglycemia Protocol Stop: 03/19/22 23:26 Glucose (Glucose 10 Tab/Tube) 4 - 8 tab PO UD PRN; Protocol PRN Reason: Hypoglycemia Treatment Stop: 03/19/22 23:26 Heparin Sodium (Porcine) (Heparin Sod 5,000 Unit/0.5 Ml Vial) 5,000 units SQ Q12 HOANG Stop: 03/21/22 22:59 Last Admin: 02/20/22 08:04 Dose: 5,000 units Promethazine HCl 12.5 mg/ (Sodium Chloride) 50.5 mls @ 202 mls/hr IV Q6H PRN PRN Reason: Nausea And Vomiting Stop: 03/19/22 21:53 Piperacillin Sod/Tazobactam (Sod 4.5 gm/ Dextrose) 120 mls @ 30 mls/hr IV Q8H [facility]; Protocol Stop: 02/25/22 01:59 Last Infusion: 02/20/22 14:12 Dose: Infused Daptomycin 475 mg/ Syringe 9.5 mls @ 4.75 mls/min IV Q24H [facility]; Protocol Stop: 02/27/22 10:59 Insulin Aspart (Insulin Aspart Per Unit) 0 units SC ACHS [facility] Stop: 03/20/22 07:29 Last Admin: 02/20/22 13:23 Dose: 3 units Insulin Glargine (Lantus Per Unit Charge) 5 units SQ HS [facility] Stop: 03/19/22 23:26 Last Admin: 02/19/22 21:31 Dose: 5 units Lorazepam (Lorazepam 0.5 Mg Tab) 0.5 mg PO TID PRN PRN Reason: Anxiety Stop: 03/19/22 21:53 Metoprolol Tartrate (Metoprolol Tartrate 25 Mg Tab) [facility] Stop: 03/20/22 06:14 Last Admin: 02/20/22 08:03 Dose: 25 mg Miscellaneous (Dutasteride: Order Awaiting Action) 1 each N/A QS [facility] Stop: 03/20/22 07:59 Last Admin: 02/20/22 08:04 Dose: Not Given Miscellaneous (Carbohydrates For Hypoglycemia ) 15 - 30 gm PO UD PRN PRN Reason: Hypoglycemia Protocol Stop: 03/19/22 23:26 Morphine Sulfate (Morphine Sulfate 4 Mg/Ml 1 Ml Carp\Vial) 4 mg IV Q4H PRN PRN Reason: Pain Stop: 03/04/22 06:10 Olmesartan (Olmesartan Medoxomil 40 Mg Tab) 40 mg PO QAM [facility] Stop: 03/20/22 02:19 Last Admin: 02/20/22 08:03 Dose: 40 mg Oxycodone HCl (Oxycodone Hcl Ir 5 Mg Tab (Immediate Release)) 5 mg PO Q4H PRN PRN Reason: Pain Stop: 03/03/22 21:53 Last Admin: 02/20/22 08:10 Dose: 5 mg Pantoprazole Sodium (Pantoprazole 40 Mg Tab) 40 mg PO QAM [facility] Stop: 03/20/22 08:59 Last Admin: 02/20/22 08:03 Dose: 40 mg
[2022-02-20] MEDS: DAPTOmycin 475 MG in SYRINGE 0 ML IV SCH (15:06)
[2022-02-20] MEDS: DUTASTERIDE PO SCH (20:44)
[2022-02-20] MEDS: LANTUS PER UNIT CHARGE SQ SCH (21:55)
--- NOTE | 2022-02-20 22:19 | Orthopedic Progress Note ---
Date of Service February 20, 2022 Assessment & Plan (1) Diabetic foot ulcer associated with type 2 diabetes mellitus: Plan: Patient seen, evaluated, and treated. I did discuss the benefit of debridement of wound with Patient this evening. He does not wish to transition to fdc facility upon discharge because of poor experience in past. This was reviewed with Patient at length. I do believe he would benefit from SNF and would have potential better outcome. I will continue to discuss. Patient scheduled 5pm 02/21/22 for debridement of right foot wound, possible application of Wound Vac. Admission and Anticipated Discharge Date Admission Date: February 17, 2022 Subjective Patient seen at bedside. He voices no complaints. Review of Systems Review of Systems: All systems reviewed & are unremarkable except as noted in HPI & below Results & Data ([facility]) Vital Signs (Past 12 Hours) Vital Signs Temp Pulse Resp BP BP Pulse Ox O2 Del Method 02/20/22 20:55 37.0 C 76 16 172/79 H 96 Room Air 02/20/22 15:59 37.2 C 64 18 187/94 H 95 Room Air
[2022-02-21] MEDS: PIPERACILLIN/TAZOBACTAM 4.5 GM in DEXTROSE 5% 100 ML IV SCH ×3 (01:59→20:09)
[2022-02-21] MEDS: DUTASTERIDE PO SCH (08:33)
[2022-02-21] MEDS: PANTOprazole 40 MG TAB PO SCH (08:34)
[2022-02-21] MEDS: OLMESARTAN MEDOXOMIL 40 MG TAB PO SCH (08:34)
[2022-02-21] MEDS: HEPARIN SOD 5,000 UNIT/0.5 ML VIAL SQ SCH ×2 (08:34→21:12)
[2022-02-21] MEDS: CLOPIDOGREL BISULFATE 75 MG TAB PO SCH (08:34)
[2022-02-21] MEDS: METOPROLOL TARTRATE 25 MG TAB PO SCH (08:34)
[2022-02-21] MEDS: INSULIN ASPART PER UNIT SC SCH ×4 (08:44→21:01)
--- NOTE | 2022-02-21 09:47 | Anesthesiology Consultation ---
Date of Service February 21, 2022 Assessment & Plan Chart Review Chart Review: Acceptable Risk for Surgery and Patient NOT seen in Pre Admission Testing Consults Requested none ASA ASA4 History Surgery Operation Date: 02/18/22 00:05 Proposed Procedures p Incision and Drainage Extremity - Gianluca Jackson DPM, MS Operation Date: 02/21/22 18:00 Proposed Procedures p Right Foot Debridement, Possible Wound Vac Application(Right) - Gianluca Jackson DPM, MS Height/Weight Height: 5 ft 5 in Weight: 101.151 kg Allergies Allergy/AdvReac Type Severity Reaction Status Date / Time aloe vera Allergy Unknown Unknown Verified 02/17/22 21:01 Medications Home Medications Medication Instructions Recorded Confirmed Last Taken ammonium lactate 12 % lotion 1 applic topical UD PRN dry skin 02/17/22 02/17/22 Unknown on legs clopidogrel 75 mg tablet 75 mg PO QAM 02/17/22 02/17/22 02/17/22 dutasteride 0.5 mg capsule 0.5 mg PO QAM 02/17/22 02/17/22 02/17/22 empagliflozin 10 mg tablet 10 mg PO QAM 02/17/22 02/17/22 02/17/22 (Jardiance) esomeprazole magnesium 20 mg 20 mg PO DAILYBB 02/17/22 02/17/22 Unknown granules delayed release for susp mecobalamin 1,000 mcg-folic acid 1 tab PO QAM 02/17/22 02/17/22 02/17/22 200 mcg sublingual tablet (Opurity) metoprolol tartrate 25 mg tablet 25 mg PO QAM 02/17/22 02/17/22 02/17/22 olmesartan 40 mg tablet 40 mg PO QAM 02/17/22 02/17/22 02/17/22 pantoprazole 40 mg tablet,delayed 40 mg PO QAM 02/17/22 02/17/22 02/17/22 release rosuvastatin 10 mg tablet 10 mg PO QPM 02/17/22 02/17/22 02/16/22 Active Medications Generic Name Dose Route Start Last Admin Trade Name Freq PRN Reason Stop Dose Admin Clopidogrel Bisulfate 75 mg 02/20/22 09:00 02/21/22 08:34 Clopidogrel Bisulfate 75 Mg Tab PO 03/22/22 08:59 75 mg QAM HOANG Administration Dutasteride 1 each 02/21/22 09:00 02/21/22 08:33 Dutasteride PO 03/23/22 08:59 1 each DAILY HOANG Administration Heparin Sodium (Porcine) 5,000 units 02/19/22 23:00 02/21/22 08:34 Heparin Sod 5,000 Unit/0.5 Ml Vial SQ 03/21/22 22:59 5,000 units Q12 HOANG Administration Piperacillin Sod/Tazobactam 120 mls @ 30 mls/hr 02/18/22 02:00 02/21/22 06:12 Sod 4.5 gm/ Dextrose IV 02/25/22 01:59 Infused Q8H HOANG Infusion Protocol Daptomycin 475 mg/ Syringe 9.5 mls @ 4.75 mls/min 02/20/22 11:00 02/20/22 15:06 IV 02/27/22 10:59 4.75 mls/min Q24H HOANG Administration Protocol Insulin Aspart 0 units 02/18/22 07:30 02/21/22 08:44 Insulin Aspart Per Unit SC 03/20/22 07:29 1 units ACHS HOANG Administration Insulin Glargine 5 units 02/17/22 23:27 02/20/22 21:55 Lantus Per Unit Charge SQ 03/19/22 23:26 5 units HS HOANG Administration Metoprolol Tartrate 25 mg 02/18/22 06:15 02/21/22 08:34 Metoprolol Tartrate 25 Mg Tab PO 03/20/22 06:14 25 mg QAM HOANG Administration Olmesartan 40 mg 02/18/22 02:20 02/21/22 08:34 Olmesartan Medoxomil 40 Mg Tab PO 03/20/22 02:19 40 mg QAM HOANG Administration Oxycodone HCl 5 mg 02/17/22 21:54 02/20/22 08:10 Oxycodone Hcl Ir 5 Mg Tab (Immediate Release) PO 03/03/22 21:53 5 mg Q4H PRN Administration Pain Pantoprazole Sodium 40 mg 02/18/22 09:00 02/21/22 08:34 Pantoprazole 40 Mg Tab PO 03/20/22 08:59 40 mg QAM HOANG Administration Past Medical History Medical History Diabetes mellitus Dyslipidemia GERD (gastroesophageal reflux disease) Neuropathy Obesity Osteomyelitis of right foot Peripheral arterial disease Stroke July 2020 Right upper extremity weakness Exercise / Class Metabolic Activity III < 4 Walking/Shop/Light housework Past Family History Family History Other Family history non-contributory Past Anesthesia History No Hx of Anesthesia Complications and No Family Hx of Anesthesia Complications History of PONV No Hx of PONV and No Hx of Motion Sickness Social History Smoking Status: Never smoker tobacco type: cigarettes Do You Dip or Chew Tobacco: No Smoking End Date: "one and a half years ago" Hx Alcohol Use: No Hx Substance Use: No Physical Exam Vital Signs Last Vital Signs Temp 37.0 C 02/20/22 20:55 Pulse 76 02/20/22 20:55 Resp 16 02/20/22 20:55 BP 172/79 H 02/20/22 20:55 Pulse Ox 96 02/20/22 20:55 O2 Del Method 02/21/22 07:25 Testing Laboratory Results 02/19/22 08:02 02/19/22 08:02 02/17/22 19:20 Gram Stain - Final Foot Aerobic and Anaerobic Culture - Preliminary Staph aureus MRSA [email or web address] gram positive cocci 02/18/22 01:00 Gram Stain - Final Toe,Right Fifth Aerobic and Anaerobic Culture - Preliminary Staph aureus MRSA 02/18/22 01:00 Gram Stain - Final Foot,Right Aerobic and Anaerobic Culture - Preliminary Staph aureus MRSA 02/17/22 19:37 Aerobic Blood Culture - Preliminary Blood No growth in Aerobic bottle after 48 hours. Anaerobic Blood Culture - Preliminary No growth in Anaerobic bottle after 48 hours. 02/17/22 19:22 Aerobic Blood Culture - Preliminary Blood No growth in Aerobic bottle after 48 hours. Anaerobic Blood Culture - Preliminary No growth in Anaerobic bottle after 48 hours. 02/21/22 08:22 POC Glucose 151 H Electrocardiogram Date: 02/17/22 Findings: + NSR @ (at 70;anterior infarct; T wave abnlty)
[2022-02-21] MEDS: ADVANCED PROBIOTIC 1250 MG CAPSULE PO SCH (13:22)
[2022-02-21] MEDS: DAPTOmycin 475 MG in SYRINGE 0 ML IV SCH (14:07)
--- NOTE | 2022-02-21 14:21 | Hospitalist Progress Note ---
Date of Service February 21, 2022 Assessment & Plan (1) Diabetic foot infection: Plan: Diabetic foot infection right No overt sepsis for now CS, Daptomycin, Zosyn Status post incision and drainage of right foot, partial excision of fifth ray right foot and delayed primary closure of right foot wound on 02/18/2022 Management as per quality engineer medical device and orthopedic surgeon Wound culture is growing staph species-sensitivities pending We will continue current antibiotic for now Await further assessment by the orthopedic surgeon We will start PT and OT evaluation Will have I&D this afternoon and possible wound VAC placement Peripheral arterial occlusion CTA did not show:The distal right posterior tibial artery, distal left anterior tibial artery, and distal bilateral peroneal arteries are likely occluded. Including other findings as in the report Appreciate vascular surgery input and recommendation Conservative management H/O CVA 2020 No acute findings Hypertension, stable Continue with current medications Remains on the upper side at 172/79 today Hyperlipidemia on statin Rx DM2 on oral medications, well-controlled as of recent hemoglobin A1c of 6.31 Aug 2021 With diabetic neuropathy and diabetic foot ulcers Basal bolus insulin adjusted for n.p.o. status, ISS BG goal 1 10-1 40, update hemoglobin A1c BPH past tobacco abuse DVT prophylaxis. SCDs possible procedure Hold Plavix in anticipation of procedure. Resume Plavix postprocedure once cleared by podiatry. Full code Patient [id number] requesting updates for providers. Ms. Elvira Rojas, contact #[phone]. Admission and Anticipated Discharge Date Admission Date: February 17, 2022 Subjective 02/18/2022 The patient was seen and examined in medical floor He is a status post incision and drainage's right foot, partial excision of fifth ray right foot Minimal pain but denies any other symptoms 02/19/2022 Patient was seen and examined in medical floor He complains to have minimal pain involving the right foot but denies any other significant symptom Denies any fever and or chills, no nausea no vomiting 02/20/2022 The patient was seen and examined in medical floor He has been feeling better but remains in pain in right foot Will have another debridement as per the quality engineer medical device note Denies any significant symptoms 02/21/2022 The patient was seen and examined in medical floor He has been stable and complains to have some right foot pain Otherwise stable Review of Systems Review of Systems: All systems reviewed and are unremarkable except as noted below Physical Exam Physical Exam: Lying in bed comfortably Constitutional: well developed, well nourished, + ill appearing and + obese Eyes: PERRL, conjunctivae normal, anicteric sclerae ENMT: external ear and nose normal, oropharynx normal Neck: trachea midline, no thyromegaly Respiratory: no respiratory distress Auscultation: lungs clear to auscultation bilaterally Cardiovascular: Rate/Rhythm: regular rate and regular rhythm; not tachycardic Heart Sounds: normal S1 and normal S2; no murmur Extremities: + edema (Trace edema bilaterally more on the right than the left) Gastrointestinal (Abdomen): Inspection/Auscultation: normal bowel sounds; abdomen not distended Percussion/Palpation: abdomen soft; abdomen nontender Musculoskeletal: Right foot pain in the right foot is bandaged Neurologic: normal touch/pain/proprioception (Except right foot) and moves all extremities; no focal motor deficits Lymphatic: no cervical or axillary lymphadenopathy Results & Data Results & Data ([facility]) Vital Signs (Past 12 Hours) Vital Signs O2 Del Method 02/21/22 07:25 Room Air Medications Administered Current Inpatient Medications Acetaminophen (Acetaminophen 325 Mg Tab) 650 mg PO Q4H PRN PRN Reason: pain/fever Stop: 03/19/22 23:26 Clopidogrel Bisulfate (Clopidogrel Bisulfate 75 Mg Tab) 75 mg PO QAM HOANG Stop: 03/22/22 08:59 Last Admin: 02/21/22 08:34 Dose: 75 mg Dextrose (Dextrose 50% 50 Ml Syringe) 25 - 50 ml IV UD PRN; Protocol PRN Reason: Hypoglycemia Protocol Stop: 03/19/22 23:26 Dutasteride (Dutasteride) 1 each PO DAILY HOAGN Stop: 03/23/22 08:59 Last Admin: 02/21/22 08:33 Dose: 1 each Glucagon (Glucagon For Inj 1 Mg Vial) 1 mg SQ UD PRN; Protocol PRN Reason: Hypoglycemia Protocol Stop: 03/19/22 23:26 Glucose (Glucose 40% Gel 15 Gm Tube) 15 - 30 gm PO UD PRN; Protocol PRN Reason: Hypoglycemia Protocol Stop: 03/19/22 23:26 Glucose (Glucose 10 Tab/Tube) 4 - 8 tab PO UD PRN; Protocol PRN Reason: Hypoglycemia Treatment Stop: 03/19/22 23:26 Heparin Sodium (Porcine) (Heparin Sod 5,000 Unit/0.5 Ml Vial) 5,000 units SQ Q12 HOANG Stop: 03/21/22 22:59 Last Admin: 02/21/22 08:34 Dose: 5,000 units Promethazine HCl 12.5 mg/ (Sodium Chloride) 50.5 mls @ 202 mls/hr IV Q6H PRN PRN Reason: Nausea And Vomiting Stop: 03/19/22 21:53 Piperacillin Sod/Tazobactam (Sod 4.5 gm/ Dextrose) 120 mls @ 30 mls/hr IV Q8H [facility]; Protocol Stop: 02/25/22 01:59 Last Admin: 02/21/22 10:09 Dose: 30 mls/hr Daptomycin 475 mg/ Syringe 9.5 mls @ 4.75 mls/min IV Q24H [facility]; Protocol Stop: 02/27/22 10:59 Last Admin: 02/21/22 14:07 Dose: 4.75 mls/min Insulin Aspart (Insulin Aspart Per Unit) 0 units SC ACHS HOANG Stop: 03/20/22 07:29 Last Admin: 02/21/22 12:40 Dose: 1 units Insulin Glargine (Lantus Per Unit Charge) 5 units SQ HS HOANG Stop: 03/19/22 23:26 Last Admin: 02/20/22 21:55 Dose: 5 units Lactobacillus Acidophilus (Advanced Probiotic 1250 Mg Capsule) 2 cap PO DAILY HOANG Stop: 03/23/22 12:59 Last Admin: 02/21/22 13:22 Dose: 2 cap Lorazepam (Lorazepam 0.5 Mg Tab) 0.5 mg PO TID PRN PRN Reason: Anxiety Stop: 03/19/22 21:53 Metoprolol Tartrate (Metoprolol Tartrate 25 Mg Tab) 25 mg PO QAM HOANG Stop: 03/20/22 06:14 Last Admin: 02/21/22 08:34 Dose: 25 mg Miscellaneous (Carbohydrates For Hypoglycemia ) 15 - 30 gm PO UD PRN PRN Reason: Hypoglycemia Protocol Stop: 03/19/22 23:26 Morphine Sulfate (Morphine Sulfate 4 Mg/Ml 1 Ml Carp\Vial) 4 mg IV Q4H PRN PRN Reason: Pain Stop: 03/04/22 06:10 Olmesartan (Olmesartan Medoxomil 40 Mg Tab) 40 mg PO QAM HOANG Stop: 03/20/22 02:19 Last Admin: 02/21/22 08:34 Dose: 40 mg Oxycodone HCl (Oxycodone Hcl Ir 5 Mg Tab (Immediate Release)) 5 mg PO Q4H PRN PRN Reason: Pain Stop: 03/03/22 21:53 Last Admin: 02/20/22 08:10 Dose: 5 mg Pantoprazole Sodium (Pantoprazole 40 Mg Tab) [facility] [place]: 03/20/22 08:59 Last Admin: 02/21/22 08:34 Dose: 40 mg
[2022-02-21] MEDS ORDERED: BUPIVACAINE 0.5 % 5 MG/1 ML MPF 30ML VIAL ONE (16:50)
[2022-02-21] MEDS ORDERED: ONDANSETRON INJ 2 MG/ML 2 ML VIAL ONE (16:51)
[2022-02-21] MEDS ORDERED: PROPOFOL IV EMULSION 10 MG/ML 20 ML VIAL IV ONE ×4 (16:51→17:53)
[2022-02-21] MEDS ORDERED: MIDAZOLAM HCL 1 MG/ML 2ML VIAL ONE (16:51)
[2022-02-21] MEDS ORDERED: fentaNYL citrate 100 MCG/2 ML VIAL ONE (16:51)
[2022-02-21] MEDS ORDERED: DEXAMETHASONE SOD INJ 4 MG/ML VIAL ONE (16:51)
--- NOTE | 2022-02-21 16:52 | History & Physical Bridge Note ---
Date of Service February 21, 2022 History & Physical Bridge Note I have examined the patient, reviewed the History & Physical and in the interval since the performance of the History & Physical I have noted the following changes of clinical significance: no changes noted
[2022-02-21] MEDS ORDERED: fentaNYL citrate 100 MCG/2 ML VIAL IV PRN (16:57)
[2022-02-21] MEDS ORDERED: ePHEDrine sulfate 50 MG/ML AMP IV PRN (16:57)
[2022-02-21] MEDS ORDERED: ATROPINE SULFATE 0.1 MG/ML 10ML SYR IV PRN (16:57)
[2022-02-21] MEDS ORDERED: PROPOFOL IV EMULSION 10 MG/ML 100 ML VIAL IV ONE (17:04)
[2022-02-21] MEDS ORDERED: KETAMINE 50 MG/5 ML SYRINGE ONE (17:22)
[2022-02-21] MEDS ORDERED: LIDOCAINE 2% 2 ML VIAL/AMP(20MG/ML) INFIL ONE (17:51)
--- NOTE | 2022-02-21 18:32 | Post Operative Brief Note ---
Immediate Post Op Note v1 Date of Surgery February 21, 2022 Pre & Post Diagnosis Operation Date: 02/18/22 00:05 Pre-Op Diagnosis: 1.) Diabetic ulcers right foot 2.) Osteomyelitis right fifth proximal phalanx 3.) Gas gangrene Right foot Post-Op Diagnosis: 1.) Diabetic ulcers right foot 2.) Osteomyelitis right fifth proximal phalanx 3.) Gas gangrene Right foot Operation Date: 02/21/22 18:00 Pre-Op Diagnosis: DM FOOT INFX Post-Op Diagnosis: DM FOOT INFX I identified the patient and participated in the time-out.: Yes Procedure Operation Date: 02/18/22 00:05 Actual Procedures p Incision and Drainage Right Foot, Partial excision of Fifth Ray Right foot, Delayed primary closure Right foot wound - Gianluca Jackson DPM, MS Operation Date: 02/21/22 18:00 Actual Procedures p Right Foot Debridement, Wound Vac Application(Right) - Gianluca Jackson DPM, MS Surgeon Gianluca Jackson DPM, MS Landscape Artist none Estimated Blood Loss 5 Findings Consistent with Post-Op Diagnosis Extensive bone and soft tissue of right foot Anesthesia Type MAC
--- NOTE | 2022-02-21 18:37 | Operative Report ---
Post Operative Report Pre & Post Diagnosis Operation Date: 02/18/22 00:05 Pre-Op Diagnosis: 1.) Diabetic ulcers right foot 2.) Osteomyelitis right fifth proximal phalanx 3.) Gas gangrene Right foot Post-Op Diagnosis: 1.) Diabetic ulcers right foot 2.) Osteomyelitis right fifth proximal phalanx 3.) Gas gangrene Right foot Operation Date: 02/21/22 18:00 Pre-Op Diagnosis: DM FOOT INFX Post-Op Diagnosis: DM FOOT INFX I identified the patient and participated in the time-out.: Yes Procedure Operation Date: 02/18/22 00:05 Actual Procedures p Incision and Drainage Right Foot, Partial excision of Fifth Ray Right foot, Delayed primary closure Right foot wound - Gianluca Jackson DPM, MS Operation Date: 02/21/22 18:00 Actual Procedures p Right Foot Debridement, Wound Vac Application(Right) - Gianluca Jackson DPM, MS Surgeon Gianluca Jackson DPM, MS Rn Surgical none Estimated Blood Loss 5 Findings Consistent with Post-Op Diagnosis Extensive non viable bone and soft tissue Specimens Pathology - 4th proximal phalanx base Pathology - 5th metatarsal head Description of Procedure History of present illness: Patient is a diabetic, 61 year old male who is seen for treatment of gangrene of the Right fifth toe. Patient relates no discomfort. He is seen for operative care including removal of non viable bone and soft tissue to right foot. All questions answered. Discussed procedure in detail and postoperative recovery. All potential risks, benefits, complications, alternatives, rehab, potential for incomplete relief of symptoms, need for further surgery, DVT, PE, , persistent pain, swelling, scarring, weakness, neurovascular, wound complications and potential for amputations were discussed with patient. Unwanted outcomes such as, but not limited to were reviewed including under correction, overcorrection, return of deformity, infection. All questions were answered. Patient has decided to proceed with procedure as indicated. Preoperative diagnosis: 1.) Diabetic ulcer right foot 2.) Gas gangrene Right foot Postoperative diagnosis: same Name of operation: 1.) Wound debridement of right foot 2.) Partial excision of Fifth metatarsal Right foot 3.) Partial excision of Fourth metatarsal Right foot 4.) Partial excision of Fourth proximal phalanx Right foot 5.) Application of Negative Pressure Therapy Right foot 6.) Delayed primary closure Right foot wound Surgeon Dr. Jackson Rn Surgical: None Anesthesia: Monitored anesthesia care Hemostasis: pneumatic ankle tourniquet as needed Estimated blood loss: minimal Procedure in detail: Under mild sedation the patient was brought in the operating room placed on the operating table in supine position. Following IV sedation the foot was prepped scrubbed and draped in usual aseptic manner. Attention was then directed to the right foot lateral diabetic wound. Significant nonviable bone and soft tissue noted. Wound present measures approximately 6 cm x 5 cm x 4cm. There is some continued purulence tracking from dorsal midfoot. This area is opened with curved hemostat. Utilizing a sharp, sterile, #15 blade nonviable tissue is sharply excised. At this time the fourth and fifth metatarsal heads are seen to be necrotic as well as the base of the fourth proximal phalanx. Utilizing an oscillating bone saw each is resected with out incident and placed on the back table. The Fourth proximal phalanx and the head of the fifth metatarsal are labeled and sent to pathology. A versa jet is the utilized to remove any remaining non viable soft tissue. 1 L of lactated Ringer was then irrigated with low flow into the wound. Further nonviable soft tissue was excised as needed sharply. A wound vac was the applied with silver foam dressing. Negative pressure therapy was set at 125mmHg continous. The Patient tolerated the procedure and anesthesia well. He was transferred to recovery room vital signs stable. Following a period of postoperative monitoring the patient will be readmitted to floor with the continuation of all preoperative orders. Patient return to the OR for continued debridement as needed as well as delayed primary closure. I attest to the content of the Intraoperative Record and any orders documented therein. Any exceptions are noted below.
[2022-02-21] MEDS: LANTUS PER UNIT CHARGE SQ SCH (21:02)
[2022-02-21] MEDS: oxyCODONE HCL IR 5 MG TAB (IMMEDIATE RELEASE) PO PRN (21:08)
[2022-02-22] MEDS: PIPERACILLIN/TAZOBACTAM 4.5 GM in DEXTROSE 5% 100 ML IV SCH ×3 (03:02→17:38)
[2022-02-22] MEDS: oxyCODONE HCL IR 5 MG TAB (IMMEDIATE RELEASE) PO PRN ×2 (03:06→07:22)
[2022-02-22 06:53] LABS: Basophils # (auto) 0.06 K/uL (0-0.2); Basophils % (auto) 0.5 %; Eosinophils # (auto) 0.24 K/uL (0-0.50); Hematocrit (blood only) 39.7 % (40.1-51.0); Hemoglobin 13.1 g/dl (14.0-18.0); Immature Granulocytes # (auto) 0.18 K/uL (0.00-0.02); Immature Granulocytes % (auto) 1.5 %; Lymphocytes # (auto) 1.11 K/uL (1.2-3.4); Lymphocytes % (auto) 9.5 %; Mean Corpuscular Hemoglobin 27.9 pg (25.0-34.0); Mean Corpuscular Volume 84.5 fL (80.0-100.0); Monocytes % (auto) 6.8 %; Neutrophils # (auto) 9.35 K/uL (1.4-6.5); Neutrophils % (auto) 79.7 %; Platelet Count 316 K/uL (130-400); RDW Coefficient of Variation 12.4 % (11.5-14.5); RDW Standard Deviation 37.9 fL (36.4-46.3); White Blood Count 11.74 K/ul (4.8-10.8)
[2022-02-22 07:32] LABS: Albumin Globulin Ratio 0.7 (0.9-2); BUN Creatinine Ratio 13.9 (10-20); Bilirubin,Total 0.8 mg/dl (0.2-1.0); Calcium 8.8 mg/dl (8.5-10.1); Creatinine Clr Calc Pharmacy 110.2 ml/min; Est GFR (African American) 113.9 ml/min; Est GFR (Non-African American) 98.3 ml/min; Globulin 4.1 gm/dl (2.5-4.0); Potassium 3.7 mmol/L (3.5-5.1); Total Protein 7.1 gm/dl (6.0-8.3)
[2022-02-22] MEDS: HEPARIN SOD 5,000 UNIT/0.5 ML VIAL SQ SCH ×2 (08:46→20:35)
[2022-02-22] MEDS: METOPROLOL TARTRATE 25 MG TAB PO SCH (08:47)
[2022-02-22] MEDS: PANTOprazole 40 MG TAB PO SCH (08:47)
[2022-02-22] MEDS: OLMESARTAN MEDOXOMIL 40 MG TAB PO SCH (08:47)
[2022-02-22] MEDS: ADVANCED PROBIOTIC 1250 MG CAPSULE PO SCH (08:47)
[2022-02-22] MEDS: DUTASTERIDE PO SCH (08:47)
[2022-02-22] MEDS: CLOPIDOGREL BISULFATE 75 MG TAB PO SCH (08:47)
[2022-02-22] MEDS: INSULIN ASPART PER UNIT SC SCH ×4 (09:46→20:33)
--- NOTE | 2022-02-22 13:53 | Hospitalist Progress Note ---
Date of Service February 22, 2022 Assessment & Plan (1) Diabetic foot infection: Plan: Diabetic foot infection right No overt sepsis for now CS, Daptomycin, Zosyn Status post incision and drainage of right foot, partial excision of fifth ray right foot and delayed primary closure of right foot wound on 02/18/2022 Management as per emergency detail driver and orthopedic surgeon Wound culture is growing staph species-sensitivities pending We will continue current antibiotic for now Await further assessment by the orthopedic surgeon We will start PT and OT evaluation Will have I&D this afternoon and possible wound VAC placement Increasing pain in the right foot-increase the pain medication to control it Await pathology results Continue PT and OT Peripheral arterial occlusion CTA did not show:The distal right posterior tibial artery, distal left anterior tibial artery, and distal bilateral peroneal arteries are likely occluded. Including other findings as in the report Appreciate vascular surgery input and recommendation Conservative management H/O CVA 2020 No acute findings Hypertension, stable Continue with current medications Remains on the upper side at 172/79 today Hyperlipidemia on statin Rx DM2 on oral medications, well-controlled as of recent hemoglobin A1c of 6.31 Aug 2021 With diabetic neuropathy and diabetic foot ulcers Basal bolus insulin adjusted for n.p.o. status, ISS BG goal 1 10-1 40, update hemoglobin A1c BPH past tobacco abuse DVT prophylaxis. SCDs possible procedure Hold Plavix in anticipation of procedure. Resume Plavix postprocedure once cleared by podiatry. Full code Patient [id number] requesting updates for providers. Ms. Elvira Rojas, contact #[phone]. Strongly advised to participate in physical therapy Admission and Anticipated Discharge Date Admission Date: February 17, 2022 Subjective 02/18/2022 The patient was seen and examined in medical floor He is a status post incision and drainage's right foot, partial excision of fifth ray right foot Minimal pain but denies any other symptoms 02/19/2022 Patient was seen and examined in medical floor He complains to have minimal pain involving the right foot but denies any other significant symptom Denies any fever and or chills, no nausea no vomiting 02/20/2022 The patient was seen and examined in medical floor He has been feeling better but remains in pain in right foot Will have another debridement as per the emergency detail driver note Denies any significant symptoms 02/21/2022 The patient was seen and examined in medical floor He has been stable and complains to have some right foot pain Otherwise stable 02/22/2022 The patient was seen and examined in medical floor He has been complaining of more pain in the right foot Has not been participating in physical therapy due to pain Denies any other symptoms Review of Systems Review of Systems: All systems reviewed and are unremarkable except as noted below Physical Exam Physical Exam: Lying in bed comfortably Constitutional: well developed, well nourished, + ill appearing and + obese Eyes: PERRL, conjunctivae normal, anicteric sclerae ENMT: external ear and nose normal, oropharynx normal Neck: trachea midline, no thyromegaly Respiratory: no respiratory distress Auscultation: lungs clear to auscultation bilaterally Cardiovascular: Rate/Rhythm: regular rate and regular rhythm; not tachycardic Heart Sounds: normal S1 and normal S2; no murmur Extremities: + edema (Trace edema bilaterally more on the right than the left) Gastrointestinal (Abdomen): Inspection/Auscultation: normal bowel sounds; abdomen not distended Percussion/Palpation: abdomen soft; abdomen nontender Neurologic: normal touch/pain/proprioception (Except right foot) and moves all extremities; no focal motor deficits Lymphatic: no cervical or axillary lymphadenopathy Results & Data Results & Data ([facility]) Vital Signs (Past 12 Hours) Vital Signs Temp Pulse Resp BP BP Pulse Ox O2 Del Method 02/22/22 07:23 37.1 C 76 18 130/66 95 Room Air 02/22/22 02:25 37.5 C 68 17 154/78 H 95 Room Air Laboratory Results Short CBC 02/22/22 Range/Units 06:07 WBC 11.74 H (4.8-10.8) K/ul Hgb 13.1 L (14.0-18.0) g/dl Hct 39.7 L (40.1-51.0) % Plt Count 316 (130-400) K/uL BMP 02/22/22 06:07 Sodium 138 Potassium 3.7 Chloride 102 Carbon Dioxide 26 BUN 11 Creatinine 0.79 Glucose 180 H Calcium 8.8 Liver Function 02/22/22 Range/Units 06:07 Total Bilirubin 0.8 (0.2-1.0) mg/dl AST 10 L (13-39) U/L ALT 9 (7-52) U/L Alkaline Phosphatase 54 (34-104) U/L Albumin 3.0 L (3.4-5.0) gm/dl Medications Administered Current Inpatient Medications Acetaminophen (Acetaminophen 325 Mg Tab) 650 mg PO Q4H PRN PRN Reason: pain/fever Stop: 03/19/22 23:26 Clopidogrel Bisulfate (Clopidogrel Bisulfate 75 Mg Tab) 75 mg PO QAM HOANG Stop: 03/22/22 08:59 Last Admin: 02/22/22 08:47 Dose: 75 mg Dextrose (Dextrose 50% 50 Ml Syringe) 25 - 50 ml IV UD PRN; Protocol PRN Reason: Hypoglycemia Protocol Stop: 03/19/22 23:26 Dutasteride (Dutasteride) 1 each PO DAILY HOANG Stop: 03/23/22 08:59 Last Admin: 02/22/22 08:47 Dose: 1 each Glucagon (Glucagon For Inj 1 Mg Vial) 1 mg SQ UD PRN; Protocol PRN Reason: Hypoglycemia Protocol Stop: 03/19/22 23:26 Glucose (Glucose 40% Gel 15 Gm Tube) 15 - 30 gm PO UD PRN; Protocol PRN Reason: Hypoglycemia Protocol Stop: 03/19/22 23:26 Glucose (Glucose 10 Tab/Tube) 4 - 8 tab PO UD PRN; Protocol PRN Reason: Hypoglycemia Treatment Stop: 03/19/22 23:26 Heparin Sodium (Porcine) (Heparin Sod 5,000 Unit/0.5 Ml Vial) 5,000 units SQ Q12 HOANG Stop: 03/21/22 22:59 Last Admin: 02/22/22 08:46 Dose: 5,000 units Promethazine HCl 12.5 mg/ (Sodium Chloride) 50.5 mls @ 202 mls/hr IV Q6H PRN PRN Reason: Nausea And Vomiting Stop: 03/19/22 21:53 Piperacillin Sod/Tazobactam (Sod 4.5 gm/ Dextrose) 120 mls @ 30 mls/hr IV Q8H HOANG; Protocol Stop: 02/25/22 01:59 Last Admin: 02/22/22 09:46 Dose: 30 mls/hr Daptomycin 475 mg/ Syringe 9.5 mls @ 4.75 mls/min IV Q24H [facility]ANG; Protocol Stop: 02/27/22 10:59 Last Admin: 02/21/22 14:07 Dose: 4.75 mls/min Insulin Aspart (Insulin Aspart Per Unit) 0 units SC ACHS [facility] Stop: 03/20/22 07:29 Last Admin: 02/22/22 12:53 Dose: 9 units Insulin Glargine (Lantus Per Unit Charge) 5 units SQ HS [facility] Stop: 03/19/22 23:26 Last Admin: 02/21/22 21:02 Dose: 5 units Lactobacillus Acidophilus (Advanced Probiotic 1250 Mg Capsule) 2 cap PO DAILY [facility] Stop: 03/23/22 12:59 Last Admin: 02/22/22 08:47 Dose: 2 cap Lorazepam (Lorazepam 0.5 Mg Tab) 0.5 mg PO TID PRN PRN Reason: Anxiety Stop: 03/19/22 21:53 Metoprolol Tartrate (Metoprolol Tartrate 25 Mg Tab) [facility] [place]: 03/20/22 06:14 Last Admin: 02/22/22 08:47 Dose: 25 mg Miscellaneous (Carbohydrates For Hypoglycemia ) 15 - 30 gm PO UD PRN PRN Reason: Hypoglycemia Protocol Stop: 03/19/22 23:26 Morphine Sulfate (Morphine Sulfate 4 Mg/Ml 1 Ml Carp\Vial) 4 mg IV Q4H PRN PRN Reason: Pain Stop: 03/04/22 06:10 Olmesartan (Olmesartan Medoxomil 40 Mg Tab) 40 mg PO QAM [facility] Stop: 03/20/22 02:19 Last Admin: 02/22/22 08:47 Dose: 40 mg Oxycodone HCl (Oxycodone Hcl Ir 5 Mg Tab (Immediate Release)) 10 mg PO Q4H PRN PRN Reason: Pain Stop: 03/03/22 21:53 Pantoprazole Sodium (Pantoprazole 40 Mg Tab) 40 mg PO QAM [facility] Stop: 03/20/22 08:59 Last Admin: 02/22/22 08:47 Dose: 40 mg
[2022-02-22] MEDS: DAPTOmycin 475 MG in SYRINGE 0 ML IV SCH (14:12)
[2022-02-22] MEDS: LANTUS PER UNIT CHARGE SQ SCH (20:33)
--- NOTE | 2022-02-22 22:18 | Orthopedic Progress Note ---
Date of Service February 22, 2022 Assessment & Plan (1) Diabetic foot ulcer associated with type 2 diabetes mellitus: Plan: Patient seen, evaluated, and treated. Patient is at severe risk for further amputation due to limited blood flow and active infection, this was discussed. We will continue to assess daily. Wound Vac changes M-W-. (2) Diabetic foot infection: Admission and Anticipated Discharge Date Admission Date: February 17, 2022 Subjective Patient seen at bedside in no distress. Patient is status post Day#3 right foot partial amputation day DOI 02/18/22, Day #1 Revision partial amputation and application of negative pressure therapy DOI 02/21/22. Physical Exam Physical Exam: Wound Vac intact and running continuous 125mmHg Results & Data ([facility]) Vital Signs (Past 12 Hours) Vital Signs Temp Pulse Resp BP Pulse Ox O2 Del Method 02/22/22 20:45 37.2 C 64 18 134/72 96 Room Air 02/22/22 14:45 36.8 C 64 18 135/75 94 Room Air
[2022-02-23] MEDS: PIPERACILLIN/TAZOBACTAM 4.5 GM in DEXTROSE 5% 100 ML IV SCH ×3 (02:04→17:46)
[2022-02-23] MEDS: oxyCODONE HCL IR 5 MG TAB (IMMEDIATE RELEASE) PO PRN (06:15)
[2022-02-23 06:41] LABS: Basophils # (auto) 0.04 K/uL (0-0.2); Basophils % (auto) 0.4 %; Eosinophils # (auto) 0.22 K/uL (0-0.50); Hematocrit (blood only) 39.9 % (40.1-51.0); Hemoglobin 13.2 g/dl (14.0-18.0); Immature Granulocytes # (auto) 0.22 K/uL (0.00-0.02); Lymphocytes # (auto) 1.41 K/uL (1.2-3.4); Lymphocytes % (auto) 13.1 %; Mean Corpuscular Hemoglobin 27.9 pg (25.0-34.0); Mean Corpuscular Hgb Conc 33.1 g/dL (32.0-36.0); Mean Corpuscular Volume 84.4 fL (80.0-100.0); Monocytes % (auto) 7.4 %; Neutrophils # (auto) 8.07 K/uL (1.4-6.5); Neutrophils % (auto) 75.1 %; Platelet Count 323 K/uL (130-400); RDW Coefficient of Variation 12.5 % (11.5-14.5); RDW Standard Deviation 38.4 fL (36.4-46.3); Red Blood Count 4.73 M/uL (4.63-6.08); White Blood Count 10.76 K/ul (4.8-10.8)
[2022-02-23 07:11] LABS: BUN Creatinine Ratio 15.3 (10-20); Creatinine Clr Calc Pharmacy 120.9 ml/min; Est GFR (African American) 118.3 ml/min; Est GFR (Non-African American) 102.1 ml/min; Potassium 3.7 mmol/L (3.5-5.1)
[2022-02-23] MEDS: CLOPIDOGREL BISULFATE 75 MG TAB PO SCH (08:29)
[2022-02-23] MEDS: DUTASTERIDE PO SCH (08:29)
[2022-02-23] MEDS: OLMESARTAN MEDOXOMIL 40 MG TAB PO SCH (08:29)
[2022-02-23] MEDS: HEPARIN SOD 5,000 UNIT/0.5 ML VIAL SQ SCH ×2 (08:29→20:35)
[2022-02-23] MEDS: METOPROLOL TARTRATE 25 MG TAB PO SCH (08:29)
[2022-02-23] MEDS: ADVANCED PROBIOTIC 1250 MG CAPSULE PO SCH (08:29)
[2022-02-23] MEDS: PANTOprazole 40 MG TAB PO SCH (08:30)
[2022-02-23] MEDS: PROMETHAZINE HCL 12.5 MG in SODIUM CHLORIDE 0.9% 50 ML IV PRN (08:46)
[2022-02-23] MEDS: INSULIN ASPART PER UNIT SC SCH ×4 (09:38→21:13)
[2022-02-23] MEDS: DAPTOmycin 475 MG in SYRINGE 0 ML IV SCH (15:04)
[2022-02-23] MEDS: LANTUS PER UNIT CHARGE SQ SCH (21:12)
--- NOTE | 2022-02-23 23:38 | Orthopedic Progress Note ---
Date of Service February 23, 2022 Assessment & Plan (1) Diabetic foot ulcer associated with type 2 diabetes mellitus: Plan: Patient seen, evaluated, and treated. Patient is at severe risk for further amputation due to limited blood flow and active infection, this was discussed. We will continue to assess daily. Wound Vac changes --. Reviewed probable removal of fourth toe. Will evaluate further during wound vac change. (2) Diabetic foot infection: Admission and Anticipated Discharge Date Admission Date: February 17, 2022 Subjective Patient seen at bedside. Patient is status post Day#3 right foot partial amputation day DOI 02/18/22, Day #1 Revision partial amputation and application of negative pressure therapy DOI 02/21/22. He has no complaints. Review of Systems Review of Systems: All systems reviewed & are unremarkable except as noted in HPI & below Physical Exam Physical Exam: Wound Vac intact and running continuous 125mmHg Constitutional: WD/WN, vitals as above + ill appearing, + disheveled and cooperative Eyes: PERRL, conjunctivae normal, anicteric sclerae ENMT: external ear and nose normal, oropharynx normal Neck: trachea midline, no thyromegaly Respiratory: normal respiratory effort Cardiovascular: Rate/Rhythm: regular rate and regular rhythm Skin: RIght fourth toe seems dark and dusky. Psychiatric: Orientation: alert and oriented x 3 Results & Data ([facility]) Vital Signs (Past 12 Hours) Vital Signs Temp Pulse Resp BP Pulse Ox O2 Del Method 02/23/22 22:03 36.9 C 60 16 165/81 H 98 Room Air 02/23/22 14:59 37.0 C 64 16 159/84 H 98 Room Air
[2022-02-24] MEDS: PIPERACILLIN/TAZOBACTAM 4.5 GM in DEXTROSE 5% 100 ML IV SCH ×2 (02:25→10:04)
[2022-02-24] MEDS: INSULIN ASPART PER UNIT SC SCH ×4 (08:55→21:33)
[2022-02-24] MEDS: HEPARIN SOD 5,000 UNIT/0.5 ML VIAL SQ SCH ×2 (08:56→21:23)
[2022-02-24] MEDS: ADVANCED PROBIOTIC 1250 MG CAPSULE PO SCH (08:57)
[2022-02-24] MEDS: METOPROLOL TARTRATE 25 MG TAB PO SCH (08:57)
[2022-02-24] MEDS: PANTOprazole 40 MG TAB PO SCH (08:57)
[2022-02-24] MEDS: OLMESARTAN MEDOXOMIL 40 MG TAB PO SCH (08:57)
[2022-02-24] MEDS: CLOPIDOGREL BISULFATE 75 MG TAB PO SCH (08:57)
[2022-02-24] MEDS: DUTASTERIDE PO SCH (08:58)
--- NOTE | 2022-02-24 10:11 | Surgery Progress Note ---
Date of Service February 24, 2022 Assessment & Plan (1) Peripheral arterial disease: Plan: Pt with severe R foot infection with gas gangrene after trauma to his foot 2 weeks ago. Has undergone orthopedic surgery to address this, but continues to have poor healing and further necrotic tissue. Pt also seen by Dr Ocampo and discussed with Podiatry. Will plan for RLE angiogram with intervention in OR tomorrow. Procedure, risks, benefits, and alternatives discussed with pt by myself at Dr Ocampo's request. Pt expresses understanding and agreement to proceed. Patient was seen, examined, and chart reviewed. Agree with exam and treatment plan of the Vascular PA. Admission and Anticipated Discharge Date Admission Date: February 17, 2022 Subjective 61 yo m with nonhealing R foot wound, seen in f/u today. Pt has had multiple debridements by podiatry and continues to have pale tissue. Review of Systems Review of Systems: All systems reviewed & are unremarkable except as noted in HPI & below Physical Exam Constitutional: WD/WN, vitals as above cooperative and comfortable; not in distress Cardiovascular: Vessels: posterior tibial pulses present (LLE +1, RLE nonpalpable), dorsalis pedis pulses present (LLE nonpalpable, RLE nonpalpable) and radial pulses present; + abnormal peripheral pulses Extremities: + edema Skin: + crusts (L lower leg) Psychiatric: Orientation: alert and oriented x 3 Affect: + irritable affect Results & Data ([place]) Vital Signs (Past 12 Hours) Vital Signs Temp Pulse Resp BP BP Pulse Ox O2 Del Method 02/24/22 07:41 175/80 H 02/24/22 07:39 36.7 C 61 14 182/72 H 98 Room Air
--- NOTE | 2022-02-24 14:50 | Hospitalist Progress Note ---
Date of Service February 23, 2022 Assessment & Plan (1) Diabetic foot infection: Plan: Diabetic foot infection right No overt sepsis for now CS, Daptomycin, Zosyn Status post incision and drainage of right foot, partial excision of fifth ray right foot and delayed primary closure of right foot wound on 02/18/2022 Management as per pbx teacher and orthopedic surgeon Wound culture is growing staph species-sensitivities pending We will continue current antibiotic for now Await further assessment by the orthopedic surgeon We will start PT and OT evaluation Will have I&D this afternoon and possible wound VAC placement Increasing pain in the right foot-increase the pain medication to control it Await pathology results Continue PT and OT -strongly advised to participate in physical therapy nonweightbearing on the right side Peripheral arterial occlusion CTA did not show:The distal right posterior tibial artery, distal left anterior tibial artery, and distal bilateral peroneal arteries are likely occluded. Including other findings as in the report Appreciate vascular surgery input and recommendation Conservative management-Will be evaluated by vascular surgery again H/O CVA 2020 No acute findings Hypertension, stable Continue with current medications Remains on the upper side at 172/79 today Hyperlipidemia on statin Rx DM2 on oral medications, well-controlled as of recent hemoglobin A1c of 6.31 Aug 2021 With diabetic neuropathy and diabetic foot ulcers Basal bolus insulin adjusted for n.p.o. status, ISS BG goal 1 10-1 40, update hemoglobin A1c BPH past tobacco abuse DVT prophylaxis. SCDs possible procedure Hold Plavix in anticipation of procedure. Resume Plavix postprocedure once cleared by podiatry. Full code Patient [id number] requesting updates for providers. Elvira Rojas, contact #[phone]. Strongly advised to participate in physical therapy Admission and Anticipated Discharge Date Admission Date: February 17, 2022 Subjective 02/18/2022 The patient was seen and examined in medical floor He is a status post incision and drainage's right foot, partial excision of fifth ray right foot Minimal pain but denies any other symptoms 02/19/2022 Patient was seen and examined in medical floor He complains to have minimal pain involving the right foot but denies any other significant symptom Denies any fever and or chills, no nausea no vomiting 02/20/2022 The patient was seen and examined in medical floor He has been feeling better but remains in pain in right foot Will have another debridement as per the pbx teacher note Denies any significant symptoms 02/21/2022 The patient was seen and examined in medical floor He has been stable and complains to have some right foot pain Otherwise stable 02/22/2022 The patient was seen and examined in medical floor He has been complaining of more pain in the right foot Has not been participating in physical therapy due to pain Denies any other symptoms 02/23/2022 The patient was seen and examined in medical floor He has been participating in the physical therapy He wants to put pressure on the right foot which is not allowed to due to the wound Review of Systems Review of Systems: All systems reviewed and are unremarkable except as noted below Physical Exam Physical Exam: Lying in bed comfortably Constitutional: well developed, well nourished, + ill appearing and + obese Eyes: PERRL, conjunctivae normal, anicteric sclerae ENMT: external ear and nose normal, oropharynx normal Neck: trachea midline, no thyromegaly Respiratory: no respiratory distress Auscultation: lungs clear to auscultation bilaterally Cardiovascular: Rate/Rhythm: regular rate and regular rhythm; not tachycardic Heart Sounds: normal S1 and normal S2; no murmur Extremities: + edema (Trace edema bilaterally more on the right than the left) Gastrointestinal (Abdomen): Inspection/Auscultation: normal bowel sounds; abdomen not distended Percussion/Palpation: abdomen soft; abdomen nontender Neurologic: normal touch/pain/proprioception (Except right foot) and moves all extremities; no focal motor deficits Lymphatic: no cervical or axillary lymphadenopathy Results & Data Results & Data ([facility]) Vital Signs (Past 12 Hours) Vital Signs Temp Pulse Resp BP BP Pulse Ox O2 Del Method 02/24/22 07:41 175/80 H 02/24/22 07:39 36.7 C 61 14 182/72 H 98 Room Air
[2022-02-24] MEDS: DAPTOmycin 475 MG in SYRINGE 0 ML IV SCH (14:54)
--- NOTE | 2022-02-24 14:54 | Hospitalist Progress Note ---
Date of Service February 24, 2022 Assessment & Plan (1) Diabetic foot infection: Plan: Diabetic foot infection right No overt sepsis for now CS, Daptomycin, Zosyn Status post incision and drainage of right foot, partial excision of fifth ray right foot and delayed primary closure of right foot wound on 02/18/2022 Management as per drawer fitter and orthopedic surgeon Wound culture is growing staph species-sensitivities pending We will continue current antibiotic for now Await further assessment by the orthopedic surgeon We will start PT and OT evaluation Will have I&D this afternoon and possible wound VAC placement Increasing pain in the right foot-increase the pain medication to control it Await pathology results Continue PT and OT -strongly advised to participate in physical therapy nonweightbearing on the right side We will have debridement, right fourth toe excision and vascular surgery evaluation tomorrow in the OR Appreciate ID input and recommendation-advised to continue with ertapenem and Dapto/Vanco for 6 weeks from the date of surgery Peripheral arterial occlusion CTA did not show:The distal right posterior tibial artery, distal left anterior tibial artery, and distal bilateral peroneal arteries are likely occluded. Including other findings as in the report Appreciate vascular surgery input and recommendation Conservative management-Will be evaluated by vascular surgery again Will have vascular surgery evaluation tomorrow H/O CVA 2020 No acute findings Hypertension, stable Continue with current medications Remains on the upper side at 172/79 today Hyperlipidemia on statin Rx DM2 on oral medications, well-controlled as of recent hemoglobin A1c of 6.31 Aug 2021 With diabetic neuropathy and diabetic foot ulcers Basal bolus insulin adjusted for n.p.o. status, ISS BG goal 1 10-1 40, update hemoglobin A1c BPH past tobacco abuse DVT prophylaxis. SCDs possible procedure Hold Plavix in anticipation of procedure. Resume Plavix postprocedure once cleared by podiatry. Full code Patient [id number] requesting updates for providers. Papi Elvira Rojas, contact #[phone]. Strongly advised to participate in physical therapy Admission and Anticipated Discharge Date Admission Date: February 17, 2022 Subjective 02/18/2022 The patient was seen and examined in medical floor He is a status post incision and drainage's right foot, partial excision of fifth ray right foot Minimal pain but denies any other symptoms 02/19/2022 Patient was seen and examined in medical floor He complains to have minimal pain involving the right foot but denies any other significant symptom Denies any fever and or chills, no nausea no vomiting 02/20/2022 The patient was seen and examined in medical floor He has been feeling better but remains in pain in right foot Will have another debridement as per the drawer fitter note Denies any significant symptoms 02/21/2022 The patient was seen and examined in medical floor He has been stable and complains to have some right foot pain Otherwise stable 02/22/2022 The patient was seen and examined in medical floor He has been complaining of more pain in the right foot Has not been participating in physical therapy due to pain Denies any other symptoms 02/23/2022 The patient was seen and examined in medical floor He has been participating in the physical therapy He wants to put pressure on the right foot which is not allowed to due to the wound 02/24/2022 The patient was seen and examined in medical floor He looks depressed and is going to have surgery with possible right fourth toe amputation and vascular surgery evaluation tomorrow Not being motivated to physical therapy and wants to put pressure on the right f oot Denies any symptoms other than pain in the right foot Review of Systems Review of Systems: All systems reviewed and are unremarkable except as noted below Musculoskeletal: Pain in the right foot Physical Exam Physical Exam: Lying in bed comfortably Constitutional: well developed, well nourished, + ill appearing and + obese Eyes: PERRL, conjunctivae normal, anicteric sclerae ENMT: external ear and nose normal, oropharynx normal Neck: trachea midline, no thyromegaly Respiratory: no respiratory distress Auscultation: lungs clear to auscultation bilaterally Cardiovascular: Rate/Rhythm: regular rate and regular rhythm; not tachycardic Heart Sounds: normal S1 and normal S2; no murmur Extremities: + edema (Trace edema bilaterally more on the right than the left) Gastrointestinal (Abdomen): Inspection/Auscultation: normal bowel sounds; abdomen not distended Percussion/Palpation: abdomen soft; abdomen nontender Musculoskeletal: Right foot pain with wound as in the picture Neurologic: normal touch/pain/proprioception (Except right foot) and moves all extremities; no focal motor deficits Lymphatic: no cervical or axillary lymphadenopathy Results & Data Results & Data ([facility]) Vital Signs (Past 12 Hours) Vital Signs Temp Pulse Resp BP BP Pulse Ox O2 Del Method 02/24/22 07:41 175/80 H 02/24/22 07:39 36.7 C 61 14 182/72 H 98 Room Air Medications Administered Current Inpatient Medications Acetaminophen (Acetaminophen 325 Mg Tab) 650 mg PO Q4H PRN PRN Reason: pain/fever Stop: 03/19/22 23:26 Clopidogrel Bisulfate (Clopidogrel Bisulfate 75 Mg Tab) 75 mg PO QAM HOANG Stop: 03/22/22 08:59 Last Admin: 02/24/22 08:57 Dose: 75 mg Dextrose (Dextrose 50% 50 Ml Syringe) 25 - 50 ml IV UD PRN; Protocol PRN Reason: Hypoglycemia Protocol Stop: 03/19/22 23:26 Dutasteride (Dutasteride) 1 each PO DAILY HOANG Stop: 03/23/22 08:59 Last Admin: 02/24/22 08:58 Dose: 1 each Glucagon (Glucagon For Inj 1 Mg Vial) 1 mg SQ UD PRN; Protocol PRN Reason: Hypoglycemia Protocol Stop: 03/19/22 23:26 Glucose (Glucose 40% Gel 15 Gm Tube) 15 - 30 gm PO UD PRN; Protocol PRN Reason: Hypoglycemia Protocol Stop: 03/19/22 23:26 Glucose (Glucose 10 Tab/Tube) 4 - 8 tab PO UD PRN; Protocol PRN Reason: Hypoglycemia Treatment Stop: 03/19/22 23:26 Heparin Sodium (Porcine) (Heparin Sod 5,000 Unit/0.5 Ml Vial) 5,000 units SQ Q12 HOANG Stop: 03/21/22 22:59 Last Admin: 02/24/22 08:56 Dose: Not Given Promethazine HCl 12.5 mg/ (Sodium Chloride) 50.5 mls @ 202 mls/hr IV Q6H PRN PRN Reason: Nausea And Vomiting Stop: 03/19/22 21:53 Last Infusion: 02/23/22 09:12 Dose: Infused Piperacillin Sod/Tazobactam (Sod 4.5 gm/ Dextrose) 120 mls @ 30 mls/hr IV Q8H S ; Protocol Stop: 02/25/22 01:59 Last Infusion: 02/24/22 14:05 Dose: Infused Daptomycin 475 mg/ Syringe 9.5 mls @ 4.75 mls/min IV Q24H [facility]; Protocol Stop: 02/27/22 10:59 Last Admin: 02/23/22 15:04 Dose: 4.75 mls/min Sodium Chloride (Nss 1000ml) 1,000 mls @ 100 mls/hr IV .Q10H [facility] Stop: 02/25/22 16:59 Insulin Aspart (Insulin Aspart Per Unit) 0 units SC ACHS HOANG Stop: 03/20/22 07:29 Last Admin: 02/24/22 12:46 Dose: 5 units Insulin Glargine (Lantus Per Unit Charge) 5 units SQ HS HOANG Stop: 03/19/22 23:26 Last Admin: 02/23/22 21:12 Dose: 5 units Lactobacillus Acidophilus (Advanced Probiotic 1250 Mg Capsule) 2 cap PO DAILY HOANG Stop: 03/23/22 12:59 Last Admin: 02/24/22 08:57 Dose: 2 cap Lorazepam (Lorazepam 0.5 Mg Tab) 0.5 mg PO TID PRN PRN Reason: Anxiety Stop: 03/19/22 21:53 Metoprolol Tartrate (Metoprolol Tartrate 25 Mg Tab) 25 mg PO QAM [facility] Stop: 03/20/22 06:14 Last Admin: 02/24/22 08:57 Dose: 25 mg Miscellaneous (Carbohydrates For Hypoglycemia ) 15 - 30 gm PO UD PRN PRN Reason: Hypoglycemia Protocol Stop: 03/19/22 23:26 Morphine Sulfate (Morphine Sulfate 4 Mg/Ml 1 Ml Carp\Vial) 4 mg IV Q4H PRN PRN Reason: Pain Stop: 03/04/22 06:10 Last Admin: 02/24/22 11:01 Dose: 4 mg Olmesartan (Olmesartan Medoxomil 40 Mg Tab) 40 mg PO QAM [facility] Stop: 03/20/22 02:19 Last Admin: 02/24/22 08:57 Dose: 40 mg Oxycodone HCl (Oxycodone Hcl Ir 5 Mg Tab (Immediate Release)) 10 mg PO Q4H PRN PRN Reason: Pain Stop: 03/03/22 21:53 Last Admin: 02/23/22 06:15 Dose: 10 mg Pantoprazole Sodium (Pantoprazole 40 Mg Tab) 40 mg PO QAM [facility] Stop: 03/20/22 08:59 Last Admin: 02/24/22 08:57 Dose: 40 mg
[2022-02-24] MEDS: ERTAPENEM SODIUM 1,000 MG in SYRINGE 0 ML IV SCH (15:57)
[2022-02-24] MEDS: LANTUS PER UNIT CHARGE SQ SCH (21:23)
[2022-02-25] MEDS: oxyCODONE HCL IR 5 MG TAB (IMMEDIATE RELEASE) PO PRN (04:09)
[2022-02-25] MEDS ORDERED: Nursing to Pharmacy Communication SCH ×2 (04:15→12:00)
[2022-02-25] MEDS ORDERED: INSULIN ASPART PER UNIT SC SCH (06:00)
[2022-02-25] MEDS ORDERED: SODIUM CHLORIDE 0.9% 1000ML 1,000 ML IV SCH ×2 (07:00→11:55)
[2022-02-25] MEDS: HEPARIN SOD 5,000 UNIT/0.5 ML VIAL SQ SCH ×2 (08:00→21:26)
[2022-02-25 08:02] LABS: Basophils # (auto) 0.04 K/uL (0-0.2); Basophils % (auto) 0.4 %; Eosinophils # (auto) 0.27 K/uL (0-0.50); Eosinophils % (auto) 2.8 %; Hematocrit (blood only) 41.6 % (40.1-51.0); Hemoglobin 13.6 g/dl (14.0-18.0); Immature Granulocytes # (auto) 0.11 K/uL (0.00-0.02); Immature Granulocytes % (auto) 1.2 %; Lymphocytes # (auto) 1.53 K/uL (1.2-3.4); Lymphocytes % (auto) 16.1 %; Mean Corpuscular Hemoglobin 27.9 pg (25.0-34.0); Mean Corpuscular Hgb Conc 32.7 g/dL (32.0-36.0); Mean Corpuscular Volume 85.4 fL (80.0-100.0); Mean Platelet Volume 8.8 fL (9.4-12.4); Monocytes # (auto) 0.62 K/uL (0.24-0.82); Monocytes % (auto) 6.5 %; Neutrophils # (auto) 6.91 K/uL (1.4-6.5); Platelet Count 358 K/uL (130-400); RDW Coefficient of Variation 12.7 % (11.5-14.5); Red Blood Count 4.87 M/uL (4.63-6.08); White Blood Count 9.48 K/ul (4.8-10.8)
[2022-02-25 08:26] LABS: Albumin Globulin Ratio 0.7 (0.9-2); Albumin Level 3.2 gm/dl (3.4-5.0); BUN Creatinine Ratio 12.2 (10-20); Bilirubin,Total 0.7 mg/dl (0.2-1.0); Calcium 9.3 mg/dl (8.5-10.1); Creatinine Clr Calc Pharmacy 106.1 ml/min; Est GFR (African American) 112.2 ml/min; Est GFR (Non-African American) 96.8 ml/min; Globulin 4.3 gm/dl (2.5-4.0); Potassium 3.6 mmol/L (3.5-5.1); Total Protein 7.5 gm/dl (6.0-8.3)
[2022-02-25] MEDS: DUTASTERIDE PO SCH (08:36)
[2022-02-25] MEDS: PANTOprazole 40 MG TAB PO SCH (08:38)
[2022-02-25] MEDS: METOPROLOL TARTRATE 25 MG TAB PO SCH (08:38)
[2022-02-25] MEDS: CLOPIDOGREL BISULFATE 75 MG TAB PO SCH (08:39)
[2022-02-25] MEDS: ADVANCED PROBIOTIC 1250 MG CAPSULE PO SCH (08:39)
[2022-02-25] MEDS: OLMESARTAN MEDOXOMIL 40 MG TAB PO SCH (08:39)
--- NOTE | 2022-02-25 08:56 | History & Physical Bridge Note ---
Date of Service February 25, 2022 History & Physical Bridge Note This patient is for right lower extremity arteriogram with possible intervention. I have discussed the risks options and benefits of the procedure with the patient. The patient understands the risks options and benefits and agrees to the procedure. I have examined the patient, reviewed the History & Physical and in the interval since the performance of the History & Physical I have noted the following changes of clinical significance: no changes noted
[2022-02-25] MEDS ORDERED: fentaNYL citrate 100 MCG/2 ML VIAL ONE ×2 (10:01→11:08)
[2022-02-25] MEDS ORDERED: MIDAZOLAM HCL 1 MG/ML 2ML VIAL ONE (10:02)
[2022-02-25] MEDS ORDERED: VISIPAQUE IV PRN (11:17)
[2022-02-25] MEDS ORDERED: LIDOCAINE 1% LOCAL 20 ML VIAL INJ ONE (11:17)
--- NOTE | 2022-02-25 11:24 | Pre Anesthesia Assessment ---
Date of Service February 25, 2022 Pre Sedation Assessment Vital Signs Temp Pulse Pulse Resp BP BP Pulse Ox 02/25/22 11:18 59 L 16 188/87 H 100 02/25/22 11:08 61 16 173/79 H 100 02/25/22 11:13 56 L 16 170/79 H 100 02/25/22 11:03 56 L 16 148/76 H 99 02/25/22 10:58 55 L 16 144/77 H 99 02/25/22 10:53 55 L 16 160/70 H 99 02/25/22 10:48 57 L 16 132/66 99 02/25/22 10:43 57 L 16 153/76 H 100 02/25/22 10:38 56 L 16 156/95 H 100 02/25/22 10:33 58 L 14 167/96 H 100 02/25/22 10:28 59 L 14 179/81 H 100 02/25/22 10:26 58 L 18 190/82 H 100 02/25/22 09:10 36.7 C 63 20 191/79 H 98 02/25/22 07:21 36.6 C 60 16 162/85 H 162/85 H 96 02/24/22 21:00 36.8 C 57 L 16 158/87 H 97 02/24/22 15:17 36.8 C 55 L 14 136/79 95 O2 Del Method O2 Flow Rate 02/25/22 11:18 Oxymask 4 02/25/22 11:08 Oxymask 4 02/25/22 11:13 Oxymask 4 02/25/22 11:03 Oxymask 4 02/25/22 10:58 Oxymask 4 02/25/22 10:53 Oxymask 4 02/25/22 10:48 Oxymask 4 02/25/22 10:43 Oxymask 4 02/25/22 10:38 Oxymask 4 02/25/22 10:33 Oxymask 4 02/25/22 10:28 Oxymask 4 02/25/22 10:26 Oxymask 4 02/25/22 09:10 Room Air 02/25/22 07:21 Room Air 02/24/22 21:00 Room Air 02/24/22 15:17 Room Air Cardiovascular RRR, no murmur, no edema Respiratory normal respiratory effort, lungs clear to auscultation Pre-Sedation Airway Assessment Smoking Status: Never smoker Hx Sleep Apnea: No Short, Thick Neck: No Thyromental Distance: > or= 3.5 Finger Breadths Oral Cavity: + WNL Mallampati Class: II ASA: ASA3 NPO Status Date of Last Intake of Fluids: 02/25/22 Time of Last Intake of Fluids: 06:00 Last Oral Intake of Fluids Comment: sip with meds Date of Last Intake of Solid Food: 02/24/22 Time of Last Intake of Solid Foods: 19:00 Procedure Planning Contraindications for Sedation: none Current Medications Reviewed: Yes Notes The planned sedation has been discussed with the patient. Informed Consent was obtained. I have identified the patient, determined the appropriateness of sedation and have assessed the patient immediately prior to the procedure. All medicine(s) and interventions are by my order.
--- NOTE | 2022-02-25 11:24 | Post Anesthesia Assessment ---
Date of Service February 25, 2022 Post Sedation Assessment Vital Signs Temp Pulse Pulse Resp BP BP Pulse Ox 02/25/22 11:18 59 L 16 188/87 H 100 02/25/22 11:08 61 16 173/79 H 100 02/25/22 11:13 56 L 16 170/79 H 100 02/25/22 11:03 56 L 16 148/76 H 99 02/25/22 10:58 55 L 16 144/77 H 99 02/25/22 10:53 55 L 16 160/70 H 99 02/25/22 10:48 57 L 16 132/66 99 02/25/22 10:43 57 L 16 153/76 H 100 02/25/22 10:38 56 L 16 156/95 H 100 02/25/22 10:33 58 L 14 167/96 H 100 02/25/22 10:28 59 L 14 179/81 H 100 02/25/22 10:26 58 L 18 190/82 H 100 02/25/22 09:10 36.7 C 63 20 191/79 H 98 02/25/22 07:21 36.6 C 60 16 162/85 H 162/85 H 96 02/24/22 21:00 36.8 C 57 L 16 158/87 H 97 02/24/22 15:17 36.8 C 55 L 14 136/79 95 O2 Del Method O2 Flow Rate 02/25/22 11:18 Oxymask 4 02/25/22 11:08 Oxymask 4 02/25/22 11:13 Oxymask 4 02/25/22 11:03 Oxymask 4 02/25/22 10:58 Oxymask 4 02/25/22 10:53 Oxymask 4 02/25/22 10:48 Oxymask 4 02/25/22 10:43 Oxymask 4 02/25/22 10:38 Oxymask 4 02/25/22 10:33 Oxymask 4 02/25/22 10:28 Oxymask 4 02/25/22 10:26 Oxymask 4 02/25/22 09:10 Room Air 02/25/22 07:21 Room Air 02/24/22 21:00 Room Air 02/24/22 15:17 Room Air Recovery Score Activity: Moves 4 extremities Respiration: Deep Breath/Cough Circulation: +/-20% PreAnes Value Consciousness: Fully Awake Oxygen Saturation: > 92% On Room Air Post Anesthesia Score: 10 Discharge Sedation Level of Care: Fast Track Phase II Post Sedation Plan On clinical assessment, the patient appears to have tolerated the sedation without complications. Patient is recovering as anticipated. Patient will continue to be monitored by nursing and may be discharged when sedation discharge criteria are met per below protocol. Upon Completions of procedure up to 15 minutes continue every 5 minute vital signs and the P.A.R. score; then discharge to a Phase I or Fast Track to Phase II per the following guidelines: * Discharge Patient to appropriate Phase II area if PAR is 8 or greater or return to pre- procedure baseline. The post - procedure orders will be as directed. * If PAR score is less than 8 or not return to pre-procedure baseline then patient will follow Phase I monitoring till PAR is reached for Phase II. The Phase I may be done in procedure room or may call to secure a Phase I area. * If naloxone or flumazenil are used for reversal, hold in Phase I for continued monitoring from when last reversal dose was given for a minimum of 60 minutes or longer pending the nurse and/or physician discretion of patient condition before discharge to Phase II. Please call the Sedation Physician to re-evaluate and complete post-note for discharge to Phase II area. Do NOT discharge from procedure sedation or Phase 1 until post- sedation evaluation note is complete by procedure /sedation MD Sedation Discharge Instructions to be given to the patient at discharge to home.
--- NOTE | 2022-02-25 11:31 | Procedure Note ---
Angiogram Post Procedure Fluoroscopy Time (minutes): 7.1 Conscious Sedation Time (minutes): 67 Radiation (mGy): 100 Contrast: 48 Post Operative Report Pre & Post Diagnosis Operation Date: 02/18/22 00:05 Pre-Op Diagnosis: 1.) Diabetic ulcers right foot 2.) Osteomyelitis right fifth proximal phalanx 3.) Gas gangrene Right foot Post-Op Diagnosis: 1.) Diabetic ulcers right foot 2.) Osteomyelitis right fifth proximal phalanx 3.) Gas gangrene Right foot Operation Date: 02/21/22 18:00 Pre-Op Diagnosis: DM FOOT INFX Post-Op Diagnosis: DM FOOT INFX Operation Date: 02/25/22 10:20 Pre-Op Diagnosis: Gangrene Right Foot Post-Op Diagnosis: Gangrene Right Foot I identified the patient and participated in the time-out.: Yes Procedure Operation Date: 02/18/22 00:05 Actual Procedures p Incision and Drainage Right Foot, Partial excision of Fifth Ray Right foot, Delayed primary closure Right foot wound - Gianluca Jackson DPM, MS Operation Date: 02/21/22 18:00 Actual Procedures p Right Foot Debridement, Wound Vac Application - Gianluca Jackson DPM, MS Operation Date: 02/25/22 10:20 Actual Procedures p Right Leg Arteriogram, Lithotripsy Of Proximal Popliteal Artery, Mechanical Closure of Left Femoral Artery, Moderate Sedation 1028 - 1135(Left) - Howard Ocampo MD Surgeon Howard Ocampo MD Men'S Basketball Coach none Estimated Blood Loss 10 Findings Consistent with Post-Op Diagnosis Specimens none Anesthesia Type RN Sedation Complications none Disposition Accompanied Patient To Recovery: No Disposition: Recovery Room Indications This is a 61-year-old gentleman who has infection of the right lateral aspect of his foot. He underwent debridement. His fourth toe now is appears dusky and wound has poor granulation tissue. He does have a possible stenosis in his proximal popliteal infrapopliteal artery occlusive disease. Arteriography and possible invention was recommended. I have discussed the risks options and benefits of the procedure with the patient. The patient understands the risks options and benefits and agrees to the procedure. Description of Procedure The patient was taken the op room and placed in the supine position. The groins were prepped and draped in a sterile manner. A timeout was performed and the patient was identified. A percutaneous puncture was then made of the left common femoral artery after local anesthetic was administered. 5 Croatian sheath was inserted. Using a rim catheter and 035 Glidewire the right side was cannulated from the left. Rim cath was advanced down to the external iliac artery. Arteriography showed the distal external iliac, common femoral, profundofemoral artery and superficial femoral artery origin to be widely patent. The 035 Glidewire was reinserted. The rim cath was advanced into the superficial femoral artery. Arteriography of the right lower extremity showed a suggestion of a tight stenosis in the proximal popliteal artery. Below there the rest of the popliteal artery appeared patent. Anterior tibial and peroneal arteries were patent down to the foot however the flow was sluggish. The dominant artery below the popliteals the posterior tibial which was widely patent all the way to the foot. Posterior tibial supplied the pedal arch and the digital arteries of the foot. We then inserted an 035 stiff Glidewire. The 5 Croatian sheath was exchanged for 6 Croatian destination. We then inserted a quick cross catheter past the lesion and exchanged the 035 wire to an 014V 14 wire. We then used a 6 x 40 lithotripsy balloon. The stenotic area was then crossed with the balloon. 3 applications of lithotripsy were then applied to this area. Post lithotripsy angiogram showed this area to be widely patent with excellent flow. No flaps or residual stenosis were noted. The 014 wire was then removed. The destination sheath was pulled back over to the left side. An 035 Glidewire was then reinserted. The destination sheath was removed and the puncture site closed with a Star closure device. Adequate hemostasis was noted. Sterile dressings were applied. The patient left the operation room in satisfactory condition and tolerated the procedure well. All needle and sponge counts were correct at the end of the procedure. There is an excellent multiphasic flow signal heard in the posterior tibial artery and the procedure. I attest to the content of the Intraoperative Record and any orders documented therein. Any exceptions are noted below.
[2022-02-25] MEDS: INSULIN ASPART PER UNIT SC SCH ×3 (14:04→21:30)
[2022-02-25] MEDS: DAPTOmycin 475 MG in SYRINGE 0 ML IV SCH (15:28)
[2022-02-25] MEDS: ERTAPENEM SODIUM 1,000 MG in SYRINGE 0 ML IV SCH (15:47)
--- NOTE | 2022-02-25 18:29 | Hospitalist Progress Note ---
Date of Service February 25, 2022 Assessment & Plan (1) Diabetic foot infection: Plan: Diabetic foot infection x right No overt sepsis POA. 02/18: I&D right foot, partial excision of fifth ray right foot, delayed primary closure right foot wound. By Dr. Gianluca Jackson. 02/21: Right foot debridement, wound VAC application. By Dr. Gianluca Jackson. 02/25: Right leg arteriogram, lithotripsy of proximal popliteal artery, mechanical closure of left femoral artery. By Dr. Howard Ocampo. Licensed Occupational Therapist on board, wound VAC changes Thursday. 02/18 wound culture: Reviewed;; await 02/24 pathology results. 02/18 pathology results suggestive of focal acute osteomyelitis in amputated right fifth toe. 02/17 blood culture: Negative Patient reports pain under control, ID evaluated 02/24, continue with daptomycin and ertapenem for 6 weeks from the date of his last surgery. Weekly CK on daptomycin. Hold statin if on a statin. 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 Focal area of high-grade stenosis of the proximal inferior mesenteric artery. Multifocal stenosis within the bilateral lower extremity arterial systems. Distal right posterior tibial artery, distal left anterior tibial artery, and distal bilateral peroneal arteries are likely occluded. Vascular team on board, status post intervention on 02/25 [see above] Other chronic medical conditions: History of CVA/HTN/HLD/DM2-->> continue home meds as and when able. Hold statin while on daptomycin. Patient with diabetic neuropathy and diabetic foot ulcers. Sliding scale while in hospital. A1c of 6.7 in August 2021. DVT prophylaxis: Heparin sq Full code PT/OT, CM to assist with DC planning. Admission and Anticipated Discharge Date Admission Date: February 17, 2022 Subjective Patient seen and examined at bedside as a follow-up of diabetic foot infection and PAD. Patient was lying in bed, on room air, NAD, reports pain under control at his right foot, reports decreasing/low appetite, denies any new acute events overnight, denies any headache or dizziness or chills or shortness of breath or sore throat or cough or chest pain or palpitation or other review of symptoms. Physical Exam Physical Exam: GENERAL: Alert and oriented x3. NAD, on RA. Class II obese. HEENT: No pallor, no icterus. Pupils equal, round and reactive to light. Oral mucosa moist. NECK: No JVD, no neck masses. HEART: S1 and S2 heard. Regular rate and rhythm. No murmur, no gallop. RESPIRATORY SYSTEM: Normal AP diameter. No accessory muscle use. No wheezing, no crackles. ABDOMEN: Soft, bowel sounds present, nontender, no distention. CENTRAL NERVOUS SYSTEM: No facial droop. Speech is clear. Obeys simple commands. Moves extremities. EXTREMITIES: Right foot with clean dressing, right fifth toe amputation, wound VAC in place. Left foot with no pitting edema, with dry scales. Results & Data Results & Data ([facility]) Vital Signs (Past 12 Hours) Vital Signs Temp Pulse Pulse Resp BP BP Pulse Ox 02/25/22 14:24 36.6 C 57 L 16 164/74 H 97 02/25/22 11:35 64 16 171/102 H 99 02/25/22 11:30 61 16 171/85 H 97 02/25/22 11:28 61 16 171/86 H 100 02/25/22 11:23 61 16 195/90 H 100 02/25/22 11:18 59 L 16 188/87 H 100 02/25/22 11:08 61 16 173/79 H 100 02/25/22 11:13 56 L 16 170/79 H 100 02/25/22 11:03 56 L 16 148/76 H 99 02/25/22 10:58 55 L 16 144/77 H 99 02/25/22 10:53 55 L 16 160/70 H 99 02/25/22 10:48 57 L 16 132/66 99 02/25/22 10:43 57 L 16 153/76 H 100 02/25/22 10:38 56 L 16 156/95 H 100 02/25/22 10:33 58 L 14 167/96 H 100 02/25/22 10:28 59 L 14 179/81 H 100 02/25/22 10:26 58 L 18 190/82 H 100 02/25/22 09:10 36.7 C 63 20 191/79 H 98 02/25/22 07:21 36.6 C 60 16 162/85 H 162/85 H 96 O2 Del Method O2 Flow Rate 02/25/22 14:24 Room Air 02/25/22 11:35 Room Air 0 02/25/22 11:30 Room Air 0 02/25/22 11:28 Oxymask 4 02/25/22 11:23 Oxymask 4 02/25/22 11:18 Oxymask 4 02/25/22 11:08 Oxymask 4 02/25/22 11:13 Oxymask 4 02/25/22 11:03 Oxymask 4 02/25/22 10:58 Oxymask 4 02/25/22 10:53 Oxymask 4 02/25/22 10:48 Oxymask 4 02/25/22 10:43 Oxymask 4 02/25/22 10:38 Oxymask 4 02/25/22 10:33 Oxymask 4 02/25/22 10:28 Oxymask 4 02/25/22 10:26 Oxymask 4 02/25/22 09:10 Room Air 02/25/22 07:21 Room Air
--- NOTE | 2022-02-25 21:26 | Orthopedic Progress Note ---
Date of Service February 25, 2022 Assessment & Plan (1) Diabetic foot ulcer associated with type 2 diabetes mellitus: Plan: Patient seen, evaluated, and treated. I did discuss options for transmetatarsal amputation with hopeful definitive closure versus Removal of fourth toe and surround necrotic tissue, continuation with wound vac followed by application of split thickness skin graft once granulation tissue is achieved. Patient will decide and hopeful to proceed with surgical care . Wound Vac changes --. (2) Diabetic foot infection: Admission and Anticipated Discharge Date Admission Date: February 17, 2022 Subjective Patient seen at bedside in no distress. His wound vac is intact and running 125mmHg continuous. Physical Exam Physical Exam: Wound Vac intact and running continuous 125mmHg Constitutional: WD/WN, vitals as above + ill appearing, + disheveled and cooperative Eyes: PERRL, conjunctivae normal, anicteric sclerae ENMT: external ear and nose normal, oropharynx normal Neck: trachea midline, no thyromegaly Respiratory: normal respiratory effort Cardiovascular: Rate/Rhythm: regular rate and regular rhythm Psychiatric: Orientation: alert and oriented x 3 Results & Data ([facility]) Vital Signs (Past 12 Hours) Vital Signs Temp Pulse Pulse Resp BP Pulse Ox O2 Del Method 02/25/22 14:24 36.6 C 57 L 16 164/74 H 97 Room Air 02/25/22 11:35 64 16 171/102 H 99 Room Air 02/25/22 11:30 61 16 171/85 H 97 Room Air 02/25/22 11:28 61 16 171/86 H 100 Oxymask 02/25/22 11:23 61 16 195/90 H 100 Oxymask 02/25/22 11:18 59 L 16 188/87 H 100 Oxymask 02/25/22 11:08 61 16 173/79 H 100 Oxymask 02/25/22 11:13 56 L 16 170/79 H 100 Oxymask 02/25/22 11:03 56 L 16 148/76 H 99 Oxymask 02/25/22 10:58 55 L 16 144/77 H 99 Oxymask 02/25/22 10:53 55 L 16 160/70 H 99 Oxymask 02/25/22 10:48 57 L 16 132/66 99 Oxymask 02/25/22 10:43 57 L 16 153/76 H 100 Oxymask 02/25/22 10:38 56 L 16 156/95 H 100 Oxymask 02/25/22 10:33 58 L 14 167/96 H 100 Oxymask 02/25/22 10:28 59 L 14 179/81 H 100 Oxymask 02/25/22 10:26 58 L 18 190/82 H 100 Oxymask O2 Flow Rate 02/25/22 14:24 02/25/22 11:35 0 02/25/22 11:30 0 02/25/22 11:28 4 02/25/22 11:23 4 02/25/22 11:18 4 02/25/22 11:08 4 02/25/22 11:13 4 02/25/22 11:03 4 02/25/22 10:58 4 02/25/22 10:53 4 02/25/22 10:48 4 02/25/22 10:43 4 02/25/22 10:38 4 02/25/22 10:33 4 02/25/22 10:28 4 02/25/22 10:26 4
[2022-02-25] MEDS: LANTUS PER UNIT CHARGE SQ SCH (21:31)
[2022-02-26 08:36] LABS: Hematocrit (blood only) 39.3 % (40.1-51.0); Hemoglobin 12.7 g/dl (14.0-18.0); Mean Corpuscular Hemoglobin 27.7 pg (25.0-34.0); Mean Corpuscular Hgb Conc 32.3 g/dL (32.0-36.0); Mean Corpuscular Volume 85.8 fL (80.0-100.0); Mean Platelet Volume 8.9 fL (9.4-12.4); Platelet Count 361 K/uL (130-400); RDW Coefficient of Variation 12.9 % (11.5-14.5); RDW Standard Deviation 39.4 fL (36.4-46.3); Red Blood Count 4.58 M/uL (4.63-6.08); White Blood Count 11.34 K/ul (4.8-10.8)
[2022-02-26] MEDS: INSULIN ASPART PER UNIT SC SCH ×4 (08:57→22:03)
[2022-02-26] MEDS: HEPARIN SOD 5,000 UNIT/0.5 ML VIAL SQ SCH ×2 (09:02→21:45)
[2022-02-26 09:10] LABS: BUN Creatinine Ratio 15.7 (10-20); Creatinine Clr Calc Pharmacy 124.3 ml/min; Est GFR (African American) 119.7 ml/min; Est GFR (Non-African American) 103.3 ml/min; Magnesium 1.8 mg/dl (1.7-2.4); Phosphorus 3.7 mg/dl (2.5-4.9); Potassium 3.7 mmol/L (3.5-5.1)
[2022-02-26] MEDS: oxyCODONE HCL IR 5 MG TAB (IMMEDIATE RELEASE) PO PRN ×2 (09:30→22:02)
[2022-02-26] MEDS: CLOPIDOGREL BISULFATE 75 MG TAB PO SCH (09:36)
[2022-02-26] MEDS: ADVANCED PROBIOTIC 1250 MG CAPSULE PO SCH (09:37)
[2022-02-26] MEDS: METOPROLOL TARTRATE 25 MG TAB PO SCH (09:37)
[2022-02-26] MEDS: DUTASTERIDE PO SCH (09:37)
[2022-02-26] MEDS: OLMESARTAN MEDOXOMIL 40 MG TAB PO SCH (09:37)
[2022-02-26] MEDS: PANTOprazole 40 MG TAB PO SCH (09:38)
[2022-02-26] MEDS: DAPTOmycin 475 MG in SYRINGE 0 ML IV SCH (14:30)
[2022-02-26] MEDS: ERTAPENEM SODIUM 1,000 MG in SYRINGE 0 ML IV SCH (14:42)
--- NOTE | 2022-02-26 15:02 | Hospitalist Progress Note ---
Date of Service February 26, 2022 Assessment & Plan (1) Diabetic foot infection: Plan: Diabetic foot infection x right No overt sepsis POA. 02/18: I&D right foot, partial excision of fifth ray right foot, delayed primary closure right foot wound. By Dr. Gianluca Jackson. 02/21: Right foot debridement, wound VAC application. By Dr. Gianluca Jackson. 02/25: Right leg arteriogram, lithotripsy of proximal popliteal artery, mechanical closure of left femoral artery. By Dr. Howard Ocampo. Ferris Wheel Operator on board, wound VAC changes Thursday. 02/18 wound culture: Reviewed;; await 02/24 pathology results. 02/18 pathology results suggestive of focal acute osteomyelitis in amputated right fifth toe. 02/17 blood culture: Negative Patient reports pain under control, ID evaluated 02/24, continue with daptomycin and ertapenem for 6 weeks from the date of his last surgery. Weekly CK on daptomycin. Hold statin if on a statin. Possible revision surgical care on . 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 Focal area of high-grade stenosis of the proximal inferior mesenteric artery. Multifocal stenosis within the bilateral lower extremity arterial systems. Distal right posterior tibial artery, distal left anterior tibial artery, and distal bilateral peroneal arteries are likely occluded. Vascular team on board, status post intervention on 02/25 [see above] Other chronic medical conditions: History of CVA/HTN/HLD/DM2-->> continue home meds as and when able. Hold statin while on daptomycin. Patient with diabetic neuropathy and diabetic foot ulcers. Sliding scale while in hospital. A1c of 6.7 in August 2021. DVT prophylaxis: Heparin sq Full code PT/OT, CM to assist with DC planning. Will need SNF. Admission and Anticipated Discharge Date Admission Date: February 17, 2022 Subjective Patient seen and examined at bedside as a follow-up of diabetic foot infection and PAD. Patient was lying in bed, on room air, NAD, reports pain under control at his right foot, Wound care working on his rt foot wound, wound inspected. denies any new acute events overnight, denies any headache or dizziness or chills or shortness of breath or sore throat or cough or chest pain or palpitation or other review of symptoms.Pt continues to decline PT/OT, tried to explain the importance and their role, he is adamant on not seeing them, will try to encourage on daily basis. Pt did agree to SNF today, CM made aware. Physical Exam Physical Exam: GENERAL: Alert and oriented x3. NAD, on RA. Class II obese. HEENT: No pallor, no icterus. Pupils equal, round and reactive to light. Oral mucosa moist. NECK: No JVD, no neck masses. HEART: S1 and S2 heard. Regular rate and rhythm. No murmur, no gallop. RESPIRATORY SYSTEM: Normal AP diameter. No accessory muscle use. No wheezing, no crackles. ABDOMEN: Soft, bowel sounds present, nontender, no distention. CENTRAL NERVOUS SYSTEM: No facial droop. Speech is clear. Obeys simple commands. Moves extremities. EXTREMITIES: Right foot with clean dressing, right fifth toe amputation. Left foot with no pitting edema, with dry scales. Results & Data Results & Data ([facility]) Vital Signs (Past 12 Hours) Vital Signs Temp Pulse Resp BP Pulse Ox O2 Del Method 02/26/22 14:40 36.7 C 61 16 129/64 99 Room Air 02/26/22 07:31 36.9 C 64 16 154/82 H 95 Room Air
--- NOTE | 2022-02-26 19:21 | Orthopedic Progress Note ---
Date of Service February 26, 2022 Assessment & Plan (1) Diabetic foot ulcer associated with type 2 diabetes mellitus: Plan: Patient seen, evaluated, and treated. I reviewed Removal of fourth toe and surround necrotic tissue, continuation with wound vac. Once granulation tissue obtained Patient may be candidate for split thickness skin graft as out patient. I reviewed surgical care in detail with Patient. I reviewed procedure in detail as well as postoperative recovery. I discussed expectations and patient's current weightbearing status. All questions answered. I have discussed procedure in detail as well as postoperative recovery. All potential risks, benefits, complications, alternatives, rehab, potential for incomplete relief of symptoms, need for further surgery, DVT, PE, , persistent pain, swelling, scarring, weakness, neurovascular, wound co mplications and potential for amputations were discussed with patient. Unwanted outcomes such as, but not limited to were reviewed including under correction, overcorrection, return of deformity, infection. All questions were answered. Patient has decided to proceed with procedure as indicated. Wound Vac changes M-W-F. (2) Diabetic foot infection: Admission and Anticipated Discharge Date Admission Date: February 17, 2022 Subjective Patient seen at bedside for right diabetic foot wound. He has no complaints. He agrees to SNF upon discharge. Patient has undergone serial wound debridement as well as status post Right Leg Arteriogram, Lithotripsy Of Proximal Popliteal Artery. Physical Exam Physical Exam: Wound Vac intact and running continuous 125mmHg Constitutional: WD/WN, vitals as above + ill appearing, + disheveled and cooperative Eyes: PERRL, conjunctivae normal, anicteric sclerae ENMT: external ear and nose normal, oropharynx normal Neck: trachea midline, no thyromegaly Respiratory: normal respiratory effort Cardiovascular: Rate/Rhythm: regular rate and regular rhythm Skin: Necrotic right fifth toe. Psychiatric: Orientation: alert and oriented x 3 Results & Data ([facility]) Vital Signs (Past 12 Hours) Vital Signs Temp Pulse Resp BP Pulse Ox O2 Del Method 02/26/22 14:40 36.7 C 61 16 129/64 99 Room Air 02/26/22 07:31 36.9 C 64 16 154/82 H 95 Room Air
[2022-02-26] MEDS: LANTUS PER UNIT CHARGE SQ SCH (22:04)
[2022-02-27 08:12] LABS: Hemoglobin 13.3 g/dl (14.0-18.0); Mean Corpuscular Hemoglobin 27.9 pg (25.0-34.0); Mean Corpuscular Hgb Conc 32.4 g/dL (32.0-36.0); Mean Corpuscular Volume 86.1 fL (80.0-100.0); Mean Platelet Volume 8.9 fL (9.4-12.4); Platelet Count 350 K/uL (130-400); RDW Coefficient of Variation 12.9 % (11.5-14.5); Red Blood Count 4.76 M/uL (4.63-6.08); White Blood Count 15.27 K/ul (4.8-10.8)
[2022-02-27 08:37] LABS: BUN Creatinine Ratio 13.9 (10-20); C Reactive Protein 4.98 mg/dl (0-0.5); Calcium 9.1 mg/dl (8.5-10.1); Creatinine Clr Calc Pharmacy 120.9 ml/min; Est GFR (African American) 118.3 ml/min; Est GFR (Non-African American) 102.1 ml/min; Potassium 3.8 mmol/L (3.5-5.1)
[2022-02-27] MEDS: METOPROLOL TARTRATE 25 MG TAB PO SCH (09:17)
[2022-02-27] MEDS: PANTOprazole 40 MG TAB PO SCH (09:17)
[2022-02-27] MEDS: INSULIN ASPART PER UNIT SC SCH ×3 (09:39→18:38)
[2022-02-27] MEDS ORDERED: Nursing to Pharmacy Communication SCH (09:45)
--- NOTE | 2022-02-27 10:02 | Anesthesiology Consultation ---
Date of Service February 27, 2022 Assessment & Plan (1) Encounter for pre-operative examination: Chart Review Chart Review: Acceptable Risk for Surgery and Patient NOT seen in Pre Admission Testing Consults Requested none History Surgery Operation Date: 02/18/22 00:05 Proposed Procedures p Incision and Drainage Extremity - Gianluca Jackson DPM, MS Operation Date: 02/21/22 18:00 Proposed Procedures p Right Foot Debridement, Possible Wound Vac Application(Right) - Gianluca Jackson DPM, MS Operation Date: 02/25/22 10:20 Proposed Procedures p Right Leg Angiogram with Intervention - Howard Ocampo MD Operation Date: 02/27/22 14:00 Proposed Procedures p Amputation Right 4th Toe - Gianluca Jackson DPM, MS Height/Weight Height: 5 ft 5 in Weight: 101.151 kg Allergies Allergy/AdvReac Type Severity Reaction Status Date / Time aloe vera Allergy Unknown Unknown Verified 02/17/22 21:01 Medications Home Medications Medication Instructions Recorded Confirmed Last Taken ammonium lactate 12 % lotion 1 applic topical UD PRN dry skin 02/17/22 02/17/22 Unknown on legs clopidogrel 75 mg tablet 75 mg PO QAM 02/17/22 02/17/22 02/17/22 dutasteride 0.5 mg capsule 0.5 mg PO QAM 02/17/22 02/17/22 02/17/22 empagliflozin 10 mg tablet 10 mg PO QAM 02/17/22 02/17/22 02/17/22 (Jardiance) esomeprazole magnesium 20 mg 20 mg PO DAILYBB 02/17/22 02/17/22 Unknown granules delayed release for susp mecobalamin 1,000 mcg-folic acid 1 tab PO QAM 02/17/22 02/17/22 02/17/22 200 mcg sublingual tablet (Opurity) metoprolol tartrate 25 mg tablet 25 mg PO QAM 02/17/22 02/17/22 02/17/22 olmesartan 40 mg tablet 40 mg PO QAM 02/17/22 02/17/22 02/17/22 pantoprazole 40 mg tablet,delayed 40 mg PO QAM 02/17/22 02/17/22 02/17/22 release rosuvastatin 10 mg tablet 10 mg PO QPM 02/17/22 02/17/22 02/16/22 Active Medications Generic Name Dose Route Start Last Admin Trade Name Freq PRN Reason Stop Dose Admin Clopidogrel Bisulfate 75 mg 02/20/22 09:00 02/26/22 09:36 Clopidogrel Bisulfate 75 Mg Tab PO 03/22/22 08:59 75 mg QAM HOANG Administration Dutasteride 1 each 02/21/22 09:00 02/26/22 09:37 Dutasteride PO 03/23/22 08:59 1 each DAILY HOANG Administration Heparin Sodium (Porcine) 5,000 units 02/19/22 23:00 02/26/22 21:45 Heparin Sod 5,000 Unit/0.5 Ml Vial SQ 03/21/22 22:59 Not Given Q12 HOANG Promethazine HCl 12.5 mg/ 50.5 mls @ 202 mls/hr 02/17/22 21:54 02/23/22 09:12 Sodium Chloride IV 03/19/22 21:53 Infused Q6H PRN Infusion Nausea And Vomiting Daptomycin 475 mg/ Syringe 9.5 mls @ 4.75 mls/min 02/20/22 11:00 02/26/22 14:30 IV 04/03/22 10:59 4.75 mls/min Q24H HOANG Administration Protocol Ertapenem 1,000 mg/ Syringe 10 mls @ 2 mls/min 02/24/22 15:00 02/26/22 14:42 IV 04/07/22 14:59 2 mls/min Q24H HOANG Administration Insulin Glargine 10 units 02/26/22 21:00 02/26/22 22:04 Lantus Per Unit Charge SQ 03/28/22 20:59 10 units HS HOANG Administration Lactobacillus Acidophilus 2 cap 02/21/22 13:00 02/26/22 09:37 Advanced Probiotic 1250 Mg Capsule PO 03/23/22 12:59 2 cap DAILY HOANG Administration Metoprolol Tartrate 25 mg 02/18/22 06:15 02/27/22 09:17 Metoprolol Tartrate 25 Mg Tab PO 03/20/22 06:14 25 mg QAM HOANG Administration Morphine Sulfate 4 mg 02/18/22 06:11 02/24/22 11:01 Morphine Sulfate 4 Mg/Ml 1 Ml Carp\\Vial IV 03/04/22 06:10 4 mg Q4H PRN Administration Pain Olmesartan 40 mg 02/18/22 02:20 02/26/22 09:37 Olmesartan Medoxomil 40 Mg Tab PO 03/20/22 02:19 40 mg QAM HOANG Administration Oxycodone HCl 10 mg 02/22/22 10:56 02/26/22 22:02 Oxycodone Hcl Ir 5 Mg Tab (Immediate Release) PO 03/03/22 21:53 10 mg Q4H PRN Administration Pain Pantoprazole Sodium 40 mg 02/18/22 09:00 02/27/22 09:17 Pantoprazole 40 Mg Tab PO 03/20/22 08:59 40 mg QAM HOANG Administration Past Medical History Medical History Diabetes mellitus Dyslipidemia GERD (gastroesophageal reflux disease) Neuropathy Obesity Osteomyelitis of right foot Peripheral arterial disease Stroke July 2020 Right upper extremity weakness Past Family History Family History Other Family history non-contributory Past Surgical History Diabetic foot infection x right 02/18: I&D right foot, partial excision of fifth ray right foot, delayed primary closure right foot wound. By Dr. Gianluca Jackson. 02/21: Right foot debridement, wound VAC application. By Dr. Gianluca Jackson. 02/25: Right leg arteriogram, lithotripsy of proximal popliteal artery, mechanical closure of left femoral artery. By Dr. Howard Ocampo. Social History Smoking Status: Never smoker tobacco type: cigarettes Do You Dip or Chew Tobacco: No Smoking End Date: "one and a half years ago" Hx Alcohol Use: No Hx Substance Use: No substance use type: does not use Physical Exam Vital Signs Last Vital Signs Temp 36.9 C 02/27/22 08:03 Pulse 65 02/27/22 08:03 Resp 18 02/27/22 08:03 BP 155/78 H 02/27/22 08:03 Pulse Ox 98 02/27/22 08:03 O2 Del Method 02/27/22 08:03 O2 Flow Rate 0 02/25/22 11:35 Testing Laboratory Results 02/27/22 07:50 02/27/22 07:50 02/18/22 01:00 Gram Stain - Final Foot,Right Aerobic and Anaerobic Culture - Final Staph aureus MRSA Veillonella species Peptoniphilus asaccharolyticus 02/18/22 01:00 Gram Stain - Final Toe,Right Fifth Aerobic and Anaerobic Culture - Final Staph aureus MRSA Veillonella species 02/17/22 19:22 Aerobic Blood Culture - Final Blood No growth in Aerobic bottle after 5 days. Anaerobic Blood Culture - Final No growth in Anaerobic bottle after 5 days. 02/17/22 19:37 Aerobic Blood Culture - Final Blood No growth in Aerobic bottle after 5 days. Anaerobic Blood Culture - Final No growth in Anaerobic bottle after 5 days. 02/17/22 19:20 Gram Stain - Final Foot Aerobic and Anaerobic Culture - Final Staph aureus MRSA Finedavidia magna 02/27/22 09:26 POC Glucose 163 H Electrocardiogram Date: 02/17/22 Findings: + NSR @ (at 70;anterior infarct; T wave abnlty)
[2022-02-27] MEDS: PROMETHAZINE HCL 12.5 MG in SODIUM CHLORIDE 0.9% 50 ML IV PRN (10:24)
[2022-02-27] MEDS: OLMESARTAN MEDOXOMIL 40 MG TAB PO SCH (10:56)
[2022-02-27] MEDS: DUTASTERIDE PO SCH (10:57)
[2022-02-27] MEDS: ADVANCED PROBIOTIC 1250 MG CAPSULE PO SCH (10:57)
[2022-02-27] MEDS: CLOPIDOGREL BISULFATE 75 MG TAB PO SCH (10:57)
[2022-02-27] MEDS: HEPARIN SOD 5,000 UNIT/0.5 ML VIAL SQ SCH ×2 (11:01→20:01)
[2022-02-27] MEDS: DAPTOmycin 475 MG in SYRINGE 0 ML IV SCH (14:35)
[2022-02-27] MEDS ORDERED: BUPIVACAINE 0.5 % 5 MG/1 ML MPF 30ML VIAL ONE (14:35)
[2022-02-27] MEDS: ERTAPENEM SODIUM 1,000 MG in SYRINGE 0 ML IV SCH (14:35)
[2022-02-27] MEDS ORDERED: PROPOFOL IV EMULSION 10 MG/ML 20 ML VIAL IV ONE ×3 (15:53→18:11)
[2022-02-27] MEDS ORDERED: MIDAZOLAM HCL 1 MG/ML 2ML VIAL ONE (15:54)
[2022-02-27] MEDS ORDERED: ATROPINE SULFATE 0.1 MG/ML 10ML SYR IV PRN (15:57)
[2022-02-27] MEDS ORDERED: HYDROmorphone INJ 1 MG/ML SYRINGE IV PRN (15:57)
[2022-02-27] MEDS ORDERED: MEPERIDINE HCL 25 MG/ML CARP/VIAL IV PRN (15:57)
[2022-02-27] MEDS ORDERED: ONDANSETRON INJ 2 MG/ML 2 ML VIAL IV PRN (15:57)
[2022-02-27] MEDS ORDERED: ePHEDrine sulfate 50 MG/ML AMP IV PRN (15:57)
[2022-02-27] MEDS ORDERED: PHENYLEPHRINE 100MCG/ML 5ML SYR IV PRN (15:57)
[2022-02-27] MEDS ORDERED: LABETALOL HCL IV 5 MG/ML 20ML IV PRN (15:57)
--- NOTE | 2022-02-27 16:04 | Hospitalist Progress Note ---
Date of Service February 27, 2022 Assessment & Plan (1) Diabetic foot infection: (2) Diabetic foot ulcer associated with type 2 diabetes mellitus: (3) Osteomyelitis of right foot: (4) Peripheral arterial disease: (5) Stroke: (6) GERD (gastroesophageal reflux disease): Plan Diabetic foot infection x right No overt sepsis POA. 02/18: I&D right foot, partial excision of fifth ray right foot, delayed primary closure right foot wound. By Dr. Gianluca Jackson. 02/21: Right foot debridement, wound VAC application. By Dr. Gianluca Jackson. 02/25: Right leg arteriogram, lithotripsy of proximal popliteal artery, mechanical closure of left femoral artery. By Dr. Howard Ocampo. Director Emergency Services on board, wound VAC changes Thursday. 02/18 wound culture: Reviewed; await 02/24 pathology results. 02/18 pathology results suggestive of focal acute osteomyelitis in amputated right fifth toe. 02/17 blood culture: Negative Patient reports pain under control, ID evaluated 02/24, continue with daptomycin and ertapenem for 6 weeks from the date of his last surgery. Weekly CK on daptomycin. Hold statin Possible revision surgical care on . 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 Focal area of high-grade stenosis of the proximal inferior mesenteric artery. Multifocal stenosis within the bilateral lower extremity arterial systems. Distal right posterior tibial artery, distal left anterior tibial artery, and distal bilateral peroneal arteries are likely occluded. Vascular team on board, status post intervention on 02/25 [see above] Other chronic medical conditions:History of CVA/HTN/HLD/DM2-->> continue home meds as and when able. Hold statin while on daptomycin. Patient with diabetic neuropathy and diabetic foot ulcers. Sliding scale while in hospital. A1c of 6.7 in August 2021. DVT prophylaxis:Heparin sq Full code PT/OT, CM to assist with DC planning. Will need SNF. Admission and Anticipated Discharge Date Admission Date: February 17, 2022 Supervising Physician Co-Signing Physician Notes Patient seen and examined at bedside as a follow-up of diabetic foot infection x right, patient was upset and did not want to converse much with me today, patient was rude to me, when i explained my role he continued that he didn't want to converse to me further. Apparently pt was fine with MARTY. Pt doesn't appear to be in distress. on RA. RT foot w/ dressing and wound vac in place. I have seen and examined the patient and have discussed the case with the provider above. I agree with the assessment and plan as stated. Subjective Seen in 353 in follow up for diabetic foot wounds and infection and PAD. Resting comfortably during exam stating pain of R foot is under control and is painful only when he bumps on end of bed. No new symptoms or events overnight. Denies fever, chills, lightheadedness, CP, SOB, N/V, abdominal pain, dysuria, diarrhea or constipation. Resistant to PT/OT and continues to decline despite multiple efforts to explain utility. Review of Systems Review of Systems: At least ten systems reviewed and negative except as noted in the HPI. Physical Exam Physical Exam: Gen: WD/WN, NAD, lying in bed, A&Ox3 HEENT: Normocephalic, atraumatic, conjunctivae moist, sclerae anicteric, mucous membranes moist Lung: Clear to Auscultation bilaterally, no wheezes/rales/rhonchi Heart: Regular rate, regular rhythm, no murmurs, rubs, or gallops Abdomen: Soft, NT, ND +BS x 4 Extremities: Right foot with dressing c/d/i, right fifth toe amputation with surrounding necrotic tissue. +wound vac present. Left foot with no pitting edema, with dry scales. No edema Skin: Warm, no rash Results & Data Results & Data ([facility]) Vital Signs (Past 12 Hours) Vital Signs Temp Pulse Resp BP Pulse Ox O2 Del Method 02/27/22 08:03 36.9 C 65 18 155/78 H 98 Room Air Laboratory Results Short CBC 02/27/22 Range/Units 07:50 WBC 15.27 H (4.8-10.8) K/ul Hgb 13.3 L (14.0-18.0) g/dl Hct 41.0 (40.1-51.0) % Plt Count 350 (130-400) K/uL BMP 02/27/22 07:50 Sodium 137 Potassium 3.8 Chloride 103 Carbon Dioxide 26 BUN 10 Creatinine 0.72 Glucose 164 H Calcium 9.1 Cardiac Enzymes 02/27/22 Range/Units 07:50 Total Creatine Kinase 21 L (30-223) U/L Diagnostic Findings Foot X-Ray 02/17/22 16:25 XR foot RT min 3V routine CLINICAL HISTORY: Kicked door jam, infection, DM 2 COMPARISON: None FINDINGS: Alignment of the right foot is anatomic. Tarsometatarsal joints are intact. There is no acute fracture. There is an old, healed fracture the distal shaft of the right fifth metatarsal. A few punctate densities project lateral to the right fifth proximal phalanx. Soft tissue swelling is present. Note is made of numerous locules of soft tissue gas within the right forefoot, at the level of the fourth and fifth digits. The soft tissue gas likely extends the level of the proximal metatarsal shafts. No evidence for acute osteomyelitis. Vascular calcification is incidentally noted. There is plantar and posterior calcaneal spurring. Moderate degenerative changes within the right foot are present. IMPRESSION: 1. Findings suggestive of an extensive infectious process of the lateral dorsal right forefoot with soft tissue swelling and soft tissue gas, as described above. The findings suggest a gas-forming infectious process. No evidence for acute osteomyelitis. 2. No acute fracture. 3. A few punctate densities which project lateral to the right fifth proximal phalanx. This could reflect debris/tiny foreign bodies on or just deep to the skin. ACT 112: Negative or not required by law. Electronically signed by: Jack Hairston M.D. 02/17/2022 6:[address] 02/17/22 19:25 CT foot RT w con HISTORY: 61 years-old Male eval for osseous involvement acute right foot pain with soft tissue infection. Clinical concern for osteomyelitis. COMPARISON: Right foot radiographs of same day TECHNIQUE: Multiple axial CT images of the right foot were obtained following the intravenous administration of 85 mL Optiray 350. A dose lowering technique was used consistent with the principals of ALARA. FINDINGS: No acute fracture, dislocation or osseous erosion identified. Moderate to large enthesophytes of the calcaneus. Multifocal osteoarthritis is predominantly mild and mild to moderate. Chronic appearing osteochondral defect of the medial talar dome measures up to approximately 1.5 cm. Arterial calcifications are noted. No definite opaque foreign body. Tendons and ligaments are suboptimally evaluated by CT technique. No widening of the Lisfranc interval. There is mild to moderate diffuse subcutaneous edema. No abscess identified. Subcutaneous emphysema within the fourth webspace and plantar aspect of the fifth toe also noted with possible plantar ulcer. Subcutaneous emphysema extends into the dorsal tissues of the forefoot. IMPRESSION: 1. Findings suggestive of cellulitis with subcutaneous emphysema of the dorsal lateral forefoot likely associated with gas forming organism. No abscess identified. 2. No evidence of osteomyelitis. ACT 112: Negative or not required by law. The above report was generated using voice recognition software. It may contain grammatical, syntax or spelling errors. Electronically signed by: Pipo Travis M.D. 02/18/2022 7:11 AM Aorta w/Runoff CTA 02/18/22 18:43 CT ANGIOGRAM OF THE ABDOMEN, PELVIS, BILATERAL LOWER EXTREMITIES HISTORY: Right foot wound. assess arterial flow in legs/feet TECHNIQUE: Multiaxial CT images of the abdomen, pelvis, bilateral lower extremities were performed following the intravenous ministration of contrast. Maximum intensity projection images were also obtained. COMPARISON STUDY: Right foot CT 02/17/2022. FINDINGS: Interval amputation of the right fifth toe. Soft tissue gas within the dorsum of the forefoot and fourth toe is again noted. This could be due to the postoperative change or a gas-forming organism there are few bibasilar linear densities consistent with subsegmental atelectasis. No pneumoperitoneum. No pneumatosis. Small left-sided hydrocele is noted. Multiple small gallstones. No gallbladder wall thickening. The liver, spleen, adrenal glands, and pancreas are unremarkable. No retroperitoneal lymphadenopathy. 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 Mild to moderate bilateral cortical renal thinning which is likely chronic. Otherwise, the kidneys enhance normally. No hydronephrosis. Residual contrast within the bladder from the recent CT examination. The prostate gland is mildly enlarged. No bowel wall thickening or obstruction. Normal appendix. Mild to moderate atherosclerotic plaque within the normal caliber abdominal aorta and iliac arteries. No evidence for an aortic dissection. No central venous stenosis within the celiac or superior mesenteric arteries. There is a focal area of high-grade stenosis within the proximal left inferior mesenteric artery on image 280. There are 3 renal arteries bilaterally. Some of these renal arteries demonstrate mild to moderate stenosis. No significant stenosis or occlusion within the bilateral iliac arteries. Scattered calcified plaque within the right common and superficial femoral arteries. There is mild to moderate multifocal stenosis throughout the majority of the mid to distal right superficial femoral artery. There is a focal area of high-grade stenosis within the distal right superficial femoral artery on image 752. Mild narrowing throughout the right popliteal artery. There is a focal area of high-grade stenosis at the distal right tibioperoneal trunk. The right anterior tibial artery is patent. Multifocal narrowing with possible occlusion of the distal right posterior tibial artery. The right peroneal artery is diminutive and may be occluded distally. The left common femoral artery is patent. Multifocal moderate to severe narrowing within the mid to distal left superficial femoral artery. This is most pronounced within the distal left superficial femoral artery which demonstrates an area of 90% stenosis on image 748. There is mild multifocal narrowing within the left popliteal artery. Focal high-grade stenosis at the left tibioperoneal trunk. The distal anterior tibial artery and distal peroneal arteries are diminutive and likely occluded. Calcified plaque within the distal posterior tibial artery which limits evaluation. No definite occlusion within the left posterior tibial artery. IMPRESSION: 1. Interval amputation of the right fifth toe. Soft tissue gas surrounding the fourth toe and dorsum of the forefoot is again noted. This could be due to postoperative change or a gas-forming organism. 2. Cholelithiasis. 3. No significant stenosis or dissection within the aorta or iliac arteries. 4. Focal area of high-grade stenosis of the proximal inferior mesenteric artery. 5. Multifocal stenoses within the bilateral lower extremity arterial systems as described above . 6. The distal right posterior tibial artery, distal left anterior tibial artery, and distal bilateral peroneal arteries are likely occluded. 7. Additional findings as described above. ACT 112: Negative or not required by law. Electronically signed by: Mau Hewitt M.D. 02/18/2022 9:49 PM
--- NOTE | 2022-02-27 17:36 | History & Physical Bridge Note ---
Date of Service February 27, 2022 History & Physical Bridge Note I have examined the patient right foot necrotic toe, reviewed the History & Physical and in the interval since the performance of the History & Physical I have noted the following changes of clinical significance: no changes noted
[2022-02-27] MEDS ORDERED: ONDANSETRON INJ 2 MG/ML 2 ML VIAL ONE (17:43)
[2022-02-27] MEDS ORDERED: KETAMINE 50 MG/5 ML SYRINGE ONE (18:06)
--- NOTE | 2022-02-27 18:45 | Anesthesiology Progress Note ---
Date of Service February 27, 2022 Anesthesia Post Procedure Vital Signs Vital Signs: Temp Pulse Resp BP Pulse Ox O2 Del Method 02/27/22 16:39 36.6 C 64 18 138/78 98 Room Air 02/27/22 08:03 36.9 C 65 18 155/78 H 98 Room Air 02/26/22 22:52 36.8 C 57 L 16 156/73 H 96 Room Air 02/26/22 21:45 Room Air Pain Intensity Right Foot: Pain Intensity: 2 Transfer of Care Handoff Completed per policy Notes Mental Status: alert / awake / arousable Patient Amnestic to Procedure: Yes Nausea / Vomiting: adequately controlled Pain: adequately controlled Airway Patency, RR, SpO2: stable & adequate BP & HR: stable & adequate Hydration State: stable & adequate Anesthetic Complications: no major complications apparent and Pt Satisfied with anesthetic care
--- NOTE | 2022-02-27 18:57 | Operative Report ---
Post Operative Report Pre & Post Diagnosis Operation Date: 02/18/22 00:05 Pre-Op Diagnosis: 1.) Diabetic ulcers right foot 2.) Osteomyelitis right fifth proximal phalanx 3.) Gas gangrene Right foot Post-Op Diagnosis: 1.) Diabetic ulcers right foot 2.) Osteomyelitis right fifth proximal phalanx 3.) Gas gangrene Right foot Operation Date: 02/21/22 18:00 Pre-Op Diagnosis: DM FOOT INFX Post-Op Diagnosis: DM FOOT INFX Operation Date: 02/25/22 10:20 Pre-Op Diagnosis: Gangrene Right Foot Post-Op Diagnosis: Gangrene Right Foot Operation Date: 02/27/22 14:00 Pre-Op Diagnosis: DM FOOT INFX Post-Op Diagnosis: DM FOOT INFX I identified the patient and participated in the time-out.: Yes Procedure Operation Date: 02/18/22 00:05 Actual Procedures p Incision and Drainage Right Foot, Partial excision of Fifth Ray Right foot, Delayed primary closure Right foot wound - Gianluca Jackson DPM, MS Operation Date: 02/21/22 18:00 Actual Procedures p Right Foot Debridement, Wound Vac Application - Gianluca Jackson DPM, MS Operation Date: 02/25/22 10:20 Actual Procedures p Right Leg Arteriogram, Lithotripsy Of Proximal Popliteal Artery, Mechanical Closure of Left Femoral Artery, Moderate Sedation 1028 - 1135 (Left) - Howard Ocampo MD Operation Date: 02/27/22 14:00 Actual Procedures p Amputation Right 4th Toe(Right) - Gianluca Jackson DPM, MS Surgeon Gianluca Jackson DPM, MS Snuff Maker none Estimated Blood Loss 0 Findings Consistent with Post-Op Diagnosis Necrotic fourth right toe. Specimens Right fourth toe Description of Procedure History of present illness: Patient is a diabetic, 61 year old male who is seen for treatmentof right diabetic foot ulcer and necrotic Right fourth toe. Patient relates no discomfort. He is seen for operative care including removal of non viable bone and soft tissue to right foot. All questions answered. Discussed procedure in detail and postoperative recovery. All potential risks, benefits, complications, alternatives, rehab, potential for incomplete relief of symptoms, need for further surgery, DVT, PE, , persistent pain, swelling, scarring, weakness, neurovascular, wound complications and potential for amputations were discussed with patient. Unwanted outcomes such as, but not limited to were reviewed including under correction, overcorrection, return of deformity, infection. All questions were answered. Patient has decided to proceed with procedure as indicated. Preoperative diagnosis: 1.) Diabetic ulcer right foot 2.) Necrotic Right fourth toe Postoperative diagnosis: same Name of operation: 1.) Wound debridement of right foot 2.) Excision of Fourth toe Right foot 3.) Application of Negative Pressure Therapy Right foot Surgeon Dr. Jackson Snuff Maker: None Anesthesia: Monitored anesthesia care Hemostasis: pneumatic ankle tourniquet as needed Estimated blood loss: minimal Procedure in detail: Under mild sedation the patient was brought in the operating room and placed on the operating table in supine position. Following IV sedation the foot was prepped scrubbed and draped in usual aseptic manner. At this time attention was directed to the necrotic fourth digit of the right f oot. Utilizing a sharp, sterile, #16 blade the fourth toe was disarticulated at the metatarsal phalangeal joint. The right fourth toe was excised en toto and placed on the back table. The toe was labeled and placed in formalin and sent to pathology. Attention was then directed to the right foot lateral diabetic wound. Necrotic fourth toe of right foot is noted. Wound present measures approximately roughly 6 cm x 5 cm x 4cm. Wound base shows exposed bone, muscle and tendon. The ulcer base is described as containing has 50 % pink granulation. Necrotic or devitalized tissue is estimated to be present in approximately 50% of the ulcer bed. I debrided the wound sharply with a sterile #15 blade and necrotic tissue was excised down to and including muscle and tendon. A versa jet is the utilized to remove any remaining non viable soft tissue. 1 L of lactated Ringer was then irrigated with low flow into the wound. Further nonviable soft tissue was excised as needed sharply. A wound vac was the applied with black foam dressing. Negative pressure therapy was set at 125mmHg continuos. The Patient tolerated the procedure and anesthesia well. He was transferred to recovery room vital signs stable. Following a period of postoperative monitoring the patient will be readmitted to floor with the continuation of all preoperative orders. I attest to the content of the Intraoperative Record and any orders documented therein. Any exceptions are noted below.
[2022-02-27] MEDS: fentaNYL citrate 100 MCG/2 ML VIAL IV PRN ×4 (19:03→19:18)
[2022-02-27] MEDS: LANTUS PER UNIT CHARGE SQ SCH (21:11)
[2022-02-28] MEDS: INSULIN ASPART PER UNIT SC SCH ×5 (01:06→21:40)
[2022-02-28] MEDS ORDERED: Nursing to Pharmacy Communication SCH (05:15)
[2022-02-28] MEDS: DUTASTERIDE PO SCH (08:01)
[2022-02-28] MEDS: HEPARIN SOD 5,000 UNIT/0.5 ML VIAL SQ SCH ×2 (08:02→20:48)
[2022-02-28] MEDS: METOPROLOL TARTRATE 25 MG TAB PO SCH ×2 (08:06→08:58)
[2022-02-28] MEDS: PANTOprazole 40 MG TAB PO SCH (08:07)
[2022-02-28] MEDS: ADVANCED PROBIOTIC 1250 MG CAPSULE PO SCH (08:07)
[2022-02-28] MEDS: CLOPIDOGREL BISULFATE 75 MG TAB PO SCH (08:07)
[2022-02-28] MEDS: OLMESARTAN MEDOXOMIL 40 MG TAB PO SCH (08:07)
[2022-02-28] MEDS: oxyCODONE HCL IR 5 MG TAB (IMMEDIATE RELEASE) PO PRN (12:12)
--- NOTE | 2022-02-28 14:23 | Hospitalist Progress Note ---
Date of Service February 28, 2022 Assessment & Plan (1) Diabetic foot infection: (2) Diabetic foot ulcer associated with type 2 diabetes mellitus: (3) Osteomyelitis of right foot: (4) Peripheral arterial disease: (5) Stroke: (6) GERD (gastroesophageal reflux disease): Plan Diabetic foot infection x right No overt sepsis POA. 02/18: I&D right foot, partial excision of fifth ray right foot, delayed primary closure right foot wound. By Dr. Gianluca Jackson. 02/21: Right foot debridement, wound VAC application. By Dr. Gianluca Jackson. 02/25: Right leg arteriogram, lithotripsy of proximal popliteal artery, mechanical closure of left femoral artery. By Dr. Howard Ocampo. Relief Driller on board, wound VAC changes Thursday. 02/18 wound culture: Reviewed; await 02/24 pathology results. 02/18 pathology results suggestive of focal acute osteomyelitis in amputated right fifth toe. 02/17 blood culture: Negative Patient reports pain under control, ID evaluated 02/24, continue with daptomycin and ertapenem for 6 weeks from the date of his last surgery. Weekly CK on daptomycin. Hold statin 02/27: Amputation Right 4th Toe by Dr. Jackson Peripheral arterial occlusion 02/18 aorta with runoff CTA: No significant stenosis or dissection within the aorta or iliac arteries. Focal area of high-grade stenosis of the proximal inferior mesenteric artery. Multifocal stenosis within the bilateral lower extremity arterial systems. Distal right posterior tibial artery, distal left anterior tibial artery, and distal bilateral peroneal arteries are likely occluded. Vascular team on board, status post intervention on 02/25 [see above] Other chronic medical conditions:History of CVA/HTN/HLD/DM2-->> continue home meds as and when able. Hold statin while on daptomycin. Patient with diabetic neuropathy and diabetic foot ulcers. Sliding scale while in hospital. A1c of 6.7 in August 2021. DVT prophylaxis:Heparin sq Full code PT/OT, CM to assist with DC planning. Will need SNF. Lengthy discussion regarding goals of care (go to SNF to work on functional independence and then ultimately return home) and importance in participation of care with PT/OT. Agreeable to try today. Admission and Anticipated Discharge Date Admission Date: February 17, 2022 Supervising Physician Co-Signing Physician Notes Patient seen and examined at bedside as a follow-up of diabetic foot infection x right, patient reports eating better and moving bowels now. Patient reports right foot pain under control. Patient is getting IV antibiotic. On examination, patient is on room air, right foot dressing with wound VAC in place, heart/lung/abdomen examination WNL. No BLE edema. Rest of the examination as above. I have seen and examined the patient and have discussed the case with the provider above. I agree with the assessment and plan as stated. Subjective Seen in 353 in follow up for diabetic foot wounds and infection and PAD. Resting comfortably during exam and was able to sit in bedside chair this morning for a bit. No new symptoms or events overnight. Appetite has improved and had a bowel movemet. Denies fever, chills, lightheadedness, CP, SOB, N/V, abdominal pain, dysuria, diarrhea or constipation. Had long discussion today regarding goals of care and importance of participation with PT/OT. Review of Systems Review of Systems: At least ten systems reviewed and negative except as noted in the HPI. Physical Exam Physical Exam: Gen: WD/WN, NAD, lying in bed, A&Ox3 HEENT: Normocephalic, atraumatic, conjunctivae moist, sclerae anicteric, mucous membranes moist Lung: Clear to Auscultation bilaterally, no wheezes/rales/rhonchi Heart: Regular rate, regular rhythm, no murmurs, rubs, or gallops Abdomen: Soft, NT, ND +BS x 4 Extremities: Right foot with dressing c/d/i, right fifth toe amputation with surrounding necrotic tissue. +wound vac present. Left foot with no pitting edema, with dry scales. No edema Skin: Warm, no rash Results & Data Results & Data ([facility]) Vital Signs (Past 12 Hours) Vital Signs Temp Pulse Resp BP BP Pulse Ox O2 Del Method 02/28/22 08:56 64 160/83 H 97 Room Air 02/28/22 08:11 36.8 C 56 L 16 126/67 97 Room Air 02/28/22 03:39 36.4 C L 67 18 124/75 92 Room Air
[2022-02-28] MEDS: DAPTOmycin 475 MG in SYRINGE 0 ML IV SCH (15:02)
[2022-02-28] MEDS: ERTAPENEM SODIUM 1,000 MG in SYRINGE 0 ML IV SCH (15:02)
[2022-02-28] MEDS: LANTUS PER UNIT CHARGE SQ SCH (21:39)
--- NOTE | 2022-02-28 21:50 | Orthopedic Progress Note ---
Date of Service February 28, 2022 Assessment & Plan (1) Diabetic foot ulcer associated with type 2 diabetes mellitus: Plan: Patient seen, evaluated, and treated. Wound vac running and intact. Discussed transfer to SNF. Patient voices understanding. Wound Vac changes M-W-. (2) Diabetic foot infection: Admission and Anticipated Discharge Date Admission Date: February 17, 2022 Subjective Patient seen at bedside status post Day #1 surgical debridement and amputation of right fourth toe. Patient has no complaints. Physical Exam Physical Exam: Wound Vac intact and running continuous 125mmHg Constitutional: WD/WN, vitals as above cooperative Eyes: PERRL, conjunctivae normal, anicteric sclerae ENMT: external ear and nose normal, oropharynx normal Neck: trachea midline, no thyromegaly Respiratory: normal respiratory effort Cardiovascular: Rate/Rhythm: regular rate and regular rhythm Psychiatric: Orientation: alert and oriented x 3 Results & Data ([facility]) Vital Signs (Past 12 Hours) Vital Signs Temp Pulse Resp BP Pulse Ox O2 Del Method 02/28/22 15:17 36.8 C 56 L 18 136/82 93 Room Air
[2022-03-01] MEDS: INSULIN ASPART PER UNIT SC SCH ×4 (09:00→21:15)
[2022-03-01] MEDS: PANTOprazole 40 MG TAB PO SCH (09:25)
[2022-03-01] MEDS: DUTASTERIDE PO SCH (09:42)
[2022-03-01] MEDS: HEPARIN SOD 5,000 UNIT/0.5 ML VIAL SQ SCH ×2 (09:42→21:14)
[2022-03-01] MEDS: METOPROLOL TARTRATE 25 MG TAB PO SCH (09:43)
[2022-03-01] MEDS: OLMESARTAN MEDOXOMIL 40 MG TAB PO SCH (09:43)
[2022-03-01] MEDS: CLOPIDOGREL BISULFATE 75 MG TAB PO SCH (09:43)
[2022-03-01] MEDS: ADVANCED PROBIOTIC 1250 MG CAPSULE PO SCH (09:43)
--- NOTE | 2022-03-01 14:09 | Hospitalist Progress Note ---
Date of Service March 01, 2022 Assessment & Plan (1) Diabetic foot infection: (2) Diabetic foot ulcer associated with type 2 diabetes mellitus: (3) Osteomyelitis of right foot: (4) Peripheral arterial disease: (5) Stroke: (6) GERD (gastroesophageal reflux disease): Plan Diabetic foot infection x right No overt sepsis POA. 02/18: I&D right foot, partial excision of fifth ray right foot, delayed primary closure right foot wound. By Dr. Gianluca Jackson. 02/21: Right foot debridement, wound VAC application. By Dr. Gianluca Jackson. 02/25: Right leg arteriogram, lithotripsy of proximal popliteal artery, mechanical closure of left femoral artery. By Dr. Howard Ocampo. Materials Management Manager on board, wound VAC changes Thursday. 02/18 wound culture: Reviewed; await 02/24 pathology results. 02/18 pathology results suggestive of focal acute osteomyelitis in amputated right fifth toe. 02/17 blood culture: Negative 02/27: Amputation Right 4th Toe by Dr. Jackson Patient reports pain under control, ID evaluated 02/24, continue with daptomycin and ertapenem for 6 weeks from the date of his last surgery. Weekly CK on daptomycin. Hold statin continue w/ probiotic. 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 Focal area of high-grade stenosis of the proximal inferior mesenteric artery. Multifocal stenosis within the bilateral lower extremity arterial systems. Distal right posterior tibial artery, distal left anterior tibial artery, and distal bilateral peroneal arteries are likely occluded. Vascular team on board, status post intervention on 02/25 [see above] Other chronic medical conditions:History of CVA/HTN/HLD/DM2-->> continue home meds as and when able. Hold statin while on daptomycin. Patient with diabetic neuropathy and diabetic foot ulcers. Sliding scale while in hospital. A1c of 6.7 in August 2021. DVT prophylaxis:Heparin sq Full code PT/OT, CM to assist with DC planning. Will need SNF. DC w/ cross cut saw operator's clearance and recs. Admission and Anticipated Discharge Date Admission Date: February 17, 2022 Subjective Patient seen and examined at bedside as a follow-up of diabetic foot infection and PAD. Patient was lying in bed, on room air, NAD, reports pain under control at his right foot, per RN eating ok and is moving bowels. Denies any headache or dizziness or chills or shortness of breath or sore throat or cough or chest pain or palpitation or other review of symptoms. Physical Exam Physical Exam: GENERAL: Alert and oriented x3. NAD, on RA. Class II obese. HEENT: No pallor, no icterus. Pupils equal, round and reactive to light. Oral mucosa moist. NECK: No JVD, no neck masses. HEART: S1 and S2 heard. Regular rate and rhythm. No murmur, no gallop. RESPIRATORY SYSTEM: Normal AP diameter. No accessory muscle use. No wheezing, no crackles. ABDOMEN: Soft, bowel sounds present, nontender, no distention. CENTRAL NERVOUS SYSTEM: No facial droop. Speech is clear. Obeys simple commands. Moves extremities. EXTREMITIES: Right foot with clean dressing, right 4th and fifth toe amputated. Left foot with no pitting edema, with dry scales. Results & Data Results & Data ([facility]) Vital Signs (Past 12 Hours) Vital Signs Temp Pulse Resp BP Pulse Ox O2 Del Method 03/01/22 07:06 36.4 C L 54 L 18 154/75 H 92 Room Air
[2022-03-01] MEDS: ERTAPENEM SODIUM 1,000 MG in SYRINGE 0 ML IV SCH (14:44)
[2022-03-01] MEDS: DAPTOmycin 475 MG in SYRINGE 0 ML IV SCH (14:44)
[2022-03-01] MEDS: LANTUS PER UNIT CHARGE SQ SCH (21:14)
[2022-03-02 07:46] LABS: Hematocrit (blood only) 37.2 % (40.1-51.0); Hemoglobin 12.2 g/dl (14.0-18.0); Mean Corpuscular Hemoglobin 27.7 pg (25.0-34.0); Mean Corpuscular Hgb Conc 32.8 g/dL (32.0-36.0); Mean Corpuscular Volume 84.5 fL (80.0-100.0); Mean Platelet Volume 9.3 fL (9.4-12.4); Platelet Count 333 K/uL (130-400); RDW Coefficient of Variation 13.2 % (11.5-14.5); RDW Standard Deviation 39.9 fL (36.4-46.3); White Blood Count 9.87 K/ul (4.8-10.8)
[2022-03-02 08:08] LABS: BUN Creatinine Ratio 14.8 (10-20); Calcium 9.4 mg/dl (8.5-10.1); Creatinine Clr Calc Pharmacy 107.4 ml/min; Est GFR (African American) 112.7 ml/min; Est GFR (Non-African American) 97.3 ml/min; Potassium 3.9 mmol/L (3.5-5.1)
[2022-03-02] MEDS: METOPROLOL TARTRATE 25 MG TAB PO SCH (08:24)
[2022-03-02] MEDS: OLMESARTAN MEDOXOMIL 40 MG TAB PO SCH (08:24)
[2022-03-02] MEDS: CLOPIDOGREL BISULFATE 75 MG TAB PO SCH (08:24)
[2022-03-02] MEDS: PANTOprazole 40 MG TAB PO SCH (08:25)
[2022-03-02] MEDS: HEPARIN SOD 5,000 UNIT/0.5 ML VIAL SQ SCH ×2 (08:25→21:32)
[2022-03-02] MEDS: ADVANCED PROBIOTIC 1250 MG CAPSULE PO SCH (08:25)
[2022-03-02] MEDS: DUTASTERIDE PO SCH (08:26)
[2022-03-02] MEDS: INSULIN ASPART PER UNIT SC SCH ×4 (08:36→21:46)
[2022-03-02] MEDS: DAPTOmycin 475 MG in SYRINGE 0 ML IV SCH (14:47)
[2022-03-02] MEDS: ERTAPENEM SODIUM 1,000 MG in SYRINGE 0 ML IV SCH (14:47)
--- NOTE | 2022-03-02 14:54 | Hospitalist Progress Note ---
Date of Service March 02, 2022 Assessment & Plan (1) Diabetic foot infection: (2) Diabetic foot ulcer associated with type 2 diabetes mellitus: (3) Osteomyelitis of right foot: (4) Peripheral arterial disease: (5) Stroke: (6) GERD (gastroesophageal reflux disease): Plan Diabetic foot infection x right No overt sepsis POA. 02/18: I&D right foot, partial excision of fifth ray right foot, delayed primary closure right foot wound. By Dr. Gianluca Jackson. 02/21: Right foot debridement, wound VAC application. By Dr. Gianluca Jackson. 02/25: Right leg arteriogram, lithotripsy of proximal popliteal artery, mechanical closure of left femoral artery. By Dr. Howard Ocampo. Cleaner And Preparer on board, wound VAC changes Thursday. 02/18 wound culture: Reviewed; await 02/24 pathology results. 02/18 pathology results suggestive of focal acute osteomyelitis in amputated right fifth toe. 02/17 blood culture: Negative 02/27: Amputation Right 4th Toe by Dr. Jackson Patient reports pain under control, ID evaluated 02/24, continue with daptomycin and ertapenem for 6 weeks from the date of his last surgery. Weekly CK on daptomycin. Hold statin continue w/ probiotic. 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 Focal area of high-grade stenosis of the proximal inferior mesenteric artery. Multifocal stenosis within the bilateral lower extremity arterial systems. Distal right posterior tibial artery, distal left anterior tibial artery, and distal bilateral peroneal arteries are likely occluded. Vascular team on board, status post intervention on 02/25 [see above] Other chronic medical conditions:History of CVA/HTN/HLD/DM2-->> continue home meds as and when able. Hold statin while on daptomycin. Patient with diabetic neuropathy and diabetic foot ulcers. Sliding scale while in hospital. A1c of 6.7 in August 2021. DVT prophylaxis:Heparin sq Full code PT/OT, CM to assist with DC planning. Will need SNF. stable. DC w/ television production clerk's clearance and recs. Admission and Anticipated Discharge Date Admission Date: February 17, 2022 Subjective Patient seen and examined at bedside as a follow-up of diabetic foot infection and PAD. Patient was lying in bed, on room air, NAD, reports pain under control at his right foot, pt reports eating ok, no belly pain and bowel bowels. Denies any headache or dizziness or chills or shortness of breath or sore throat or cough or chest pain or palpitation or other review of symptoms. Physical Exam Physical Exam: GENERAL: Alert and oriented x3. NAD, on RA. Class II obese. HEENT: No pallor, no icterus. Pupils equal, round and reactive to light. Oral mucosa moist. NECK: No JVD, no neck masses. HEART: S1 and S2 heard. Regular rate and rhythm. No murmur, no gallop. RESPIRATORY SYSTEM: Normal AP diameter. No accessory muscle use. No wheezing, no crackles. ABDOMEN: Soft, bowel sounds present, nontender, no distention. CENTRAL NERVOUS SYSTEM: No facial droop. Speech is clear. Obeys simple commands. Moves extremities. EXTREMITIES: Right foot with clean dressing, right 4th and fifth toe amputated. Left foot with no pitting edema, with dry scales. Results & Data Results & Data ([facility]) Vital Signs (Past 12 Hours) Vital Signs Temp Pulse Resp BP Pulse Ox O2 Del Method 03/02/22 07:41 36.8 C 55 L 16 158/78 H 96 Room Air
--- NOTE | 2022-03-02 18:00 | Orthopedic Progress Note ---
Date of Service March 02, 2022 Assessment & Plan (1) Diabetic foot ulcer associated with type 2 diabetes mellitus: Plan: Patient seen, evaluated, and treated. Wound vac running and intact. Discussed transfer to SNF. Patient voices understanding. Wound vac changed at today's visit. Wound Vac changes -- by Wound nurse. (2) Diabetic foot infection: Admission and Anticipated Discharge Date Admission Date: February 17, 2022 Subjective Patient is seen at today's visit resting comfortably. No complaints. Physical Exam Physical Exam: Wound Vac intact and running continuous 125mmHg Constitutional: WD/WN, vitals as above cooperative Eyes: PERRL, conjunctivae normal, anicteric sclerae ENMT: external ear and nose normal, oropharynx normal Neck: trachea midline, no thyromegaly Respiratory: normal respiratory effort Cardiovascular: Rate/Rhythm: regular rate and regular rhythm Skin: Wound measures roughly 6 x 5 x 4cm. Psychiatric: Orientation: alert and oriented x 3 Results & Data ([facility]) Vital Signs (Past 12 Hours) Vital Signs Temp Pulse Resp BP BP Pulse Ox O2 Del Method 03/02/22 15:29 37.0 C 59 L 18 148/75 H 97 Room Air 03/02/22 07:41 36.8 C 55 L 16 158/78 H 96 Room Air
[2022-03-02] MEDS: LANTUS PER UNIT CHARGE SQ SCH (21:32)
[2022-03-03] MEDS: METOPROLOL TARTRATE 25 MG TAB PO SCH (08:03)
[2022-03-03] MEDS: HEPARIN SOD 5,000 UNIT/0.5 ML VIAL SQ SCH ×2 (08:04→21:40)
[2022-03-03] MEDS: ADVANCED PROBIOTIC 1250 MG CAPSULE PO SCH (08:04)
[2022-03-03] MEDS: PANTOprazole 40 MG TAB PO SCH (08:05)
[2022-03-03] MEDS: CLOPIDOGREL BISULFATE 75 MG TAB PO SCH (08:05)
[2022-03-03] MEDS: OLMESARTAN MEDOXOMIL 40 MG TAB PO SCH (08:05)
[2022-03-03] MEDS: DUTASTERIDE PO SCH (08:06)
[2022-03-03] MEDS: INSULIN ASPART PER UNIT SC SCH ×4 (09:13→21:40)
[2022-03-03] MEDS: ERTAPENEM SODIUM 1,000 MG in SYRINGE 0 ML IV SCH (14:29)
[2022-03-03] MEDS: DAPTOmycin 475 MG in SYRINGE 0 ML IV SCH (14:29)
--- NOTE | 2022-03-03 14:45 | Hospitalist Progress Note ---
Date of Service March 03, 2022 Assessment & Plan (1) Diabetic foot infection: (2) Diabetic foot ulcer associated with type 2 diabetes mellitus: (3) Osteomyelitis of right foot: (4) Peripheral arterial disease: (5) Stroke: (6) GERD (gastroesophageal reflux disease): Plan Diabetic foot infection x right No overt sepsis POA. 02/18: I&D right foot, partial excision of fifth ray right foot, delayed primary closure right foot wound. By Dr. Gianluca Jackson. 02/21: Right foot debridement, wound VAC application. By Dr. Gianluca Jackson. 02/25: Right leg arteriogram, lithotripsy of proximal popliteal artery, mechanical closure of left femoral artery. By Dr. Howard Ocampo. Machine Heel Sprayer on board, wound VAC changes Thursday. 02/18 wound culture: Reviewed; await 02/24 pathology results. 02/18 pathology results suggestive of focal acute osteomyelitis in amputated right fifth toe. 02/17 blood culture: Negative 02/27: Amputation Right 4th Toe by Dr. Jackson Patient reports pain under control, ID evaluated 02/24, continue with daptomycin and ertapenem for 6 weeks from the date of his last surgery. Weekly CK on daptomycin. Hold statin continue w/ probiotic. 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 Focal area of high-grade stenosis of the proximal inferior mesenteric artery. Multifocal stenosis within the bilateral lower extremity arterial systems. Distal right posterior tibial artery, distal left anterior tibial artery, and distal bilateral peroneal arteries are likely occluded. Vascular team on board, status post intervention on 02/25 [see above] Other chronic medical conditions:History of CVA/HTN/HLD/DM2-->> continue home meds as and when able. Hold statin while on daptomycin. Patient with diabetic neuropathy and diabetic foot ulcers. Sliding scale while in hospital. A1c of 6.7 in August 2021. DVT prophylaxis:Heparin sq Full code PT/OT, CM to assist with DC planning. Will need SNF. stable. Admission and Anticipated Discharge Date Admission Date: February 17, 2022 Subjective Patient seen and examined at bedside as a follow-up of diabetic foot infection and PAD. Patient was lying in bed, on room air, NAD, reports pain under control at his right foot, pt reports eating ok, no belly pain and moving bowels, loose, upto 1-2 per day, continue to monitor. Denies any headache or dizziness or chills or shortness of breath or sore throat or cough or chest pain or palpitation or other review of symptoms. Physical Exam Physical Exam: GENERAL: Alert and oriented x3. NAD, on RA. Class II obese. HEENT: No pallor, no icterus. Pupils equal, round and reactive to light. Oral mucosa moist. NECK: No JVD, no neck masses. HEART: S1 and S2 heard. Regular rate and rhythm. No murmur, no gallop. RESPIRATORY SYSTEM: Normal AP diameter. No accessory muscle use. No wheezing, no crackles. ABDOMEN: Soft, bowel sounds present, nontender, no distention. CENTRAL NERVOUS SYSTEM: No facial droop. Speech is clear. Obeys simple commands. Moves extremities. EXTREMITIES: Right foot with clean dressing, right 4th and fifth toe amputated.Wound vac in place. Left foot with no pitting edema, with dry scales. Results & Data Results & Data ([facility]) Vital Signs (Past 12 Hours) Vital Signs Temp Pulse Resp BP Pulse Ox O2 Del Method 03/03/22 08:02 36.9 C 57 L 16 164/78 H 97 Room Air
[2022-03-03] MEDS: oxyCODONE HCL IR 5 MG TAB (IMMEDIATE RELEASE) PO PRN (21:38)
[2022-03-03] MEDS: LANTUS PER UNIT CHARGE SQ SCH (21:39)
[2022-03-04] MEDS: METOPROLOL TARTRATE 25 MG TAB PO SCH (07:37)
[2022-03-04] MEDS: CLOPIDOGREL BISULFATE 75 MG TAB PO SCH (07:39)
[2022-03-04] MEDS: PANTOprazole 40 MG TAB PO SCH (07:39)
[2022-03-04] MEDS: ADVANCED PROBIOTIC 1250 MG CAPSULE PO SCH (07:40)
[2022-03-04] MEDS: OLMESARTAN MEDOXOMIL 40 MG TAB PO SCH (07:40)
[2022-03-04] MEDS: DUTASTERIDE PO SCH (07:40)
[2022-03-04] MEDS: HEPARIN SOD 5,000 UNIT/0.5 ML VIAL SQ SCH ×2 (07:40→20:26)
[2022-03-04 08:22] LABS: Hematocrit (blood only) 39.9 % (40.1-51.0); Hemoglobin 12.7 g/dl (14.0-18.0); Mean Corpuscular Hemoglobin 27.7 pg (25.0-34.0); Mean Corpuscular Hgb Conc 31.8 g/dL (32.0-36.0); Mean Corpuscular Volume 86.9 fL (80.0-100.0); Mean Platelet Volume 9.3 fL (9.4-12.4); Platelet Count 324 K/uL (130-400); RDW Coefficient of Variation 13.2 % (11.5-14.5); RDW Standard Deviation 40.9 fL (36.4-46.3); Red Blood Count 4.59 M/uL (4.63-6.08); White Blood Count 7.53 K/ul (4.8-10.8)
[2022-03-04] MEDS: INSULIN ASPART PER UNIT SC SCH ×4 (08:30→21:50)
[2022-03-04 08:38] LABS: BUN Creatinine Ratio 15.8 (10-20); Calcium 9.6 mg/dl (8.5-10.1); Creatinine Clr Calc Pharmacy 91.6 ml/min; Est GFR (African American) 101.1 ml/min; Est GFR (Non-African American) 87.3 ml/min
[2022-03-04] MEDS: ERTAPENEM SODIUM 1,000 MG in SYRINGE 0 ML IV SCH (14:38)
[2022-03-04] MEDS: DAPTOmycin 475 MG in SYRINGE 0 ML IV SCH (14:38)
--- NOTE | 2022-03-04 15:48 | Hospitalist Progress Note ---
Date of Service March 04, 2022 Assessment & Plan (1) Diabetic foot infection: (2) Diabetic foot ulcer associated with type 2 diabetes mellitus: (3) Osteomyelitis of right foot: (4) Peripheral arterial disease: (5) Stroke: (6) GERD (gastroesophageal reflux disease): Plan Diabetic foot infection x right No overt sepsis POA. 02/18: I&D right foot, partial excision of fifth ray right foot, delayed primary closure right foot wound. By Dr. Gianluca Jackson. 02/21: Right foot debridement, wound VAC application. By Dr. Gianluca Jackson. 02/25: Right leg arteriogram, lithotripsy of proximal popliteal artery, mechanical closure of left femoral artery. By Dr. Howard Ocampo. Global Account Director on board, wound VAC changes Thursday. 02/18 wound culture: Reviewed; await 02/24 pathology results. 02/18 pathology results suggestive of focal acute osteomyelitis in amputated right fifth toe. 02/17 blood culture: Negative 02/27: Amputation Right 4th Toe by Dr. Jackson Patient reports pain under control, ID evaluated 02/24, continue with daptomycin and ertapenem for 6 weeks from the date of his last surgery. Weekly CK on daptomycin. Hold statin continue w/ probiotic. Remains stable and awaiting to be transferred Will need follow-up with the hand pattern marker as an outpatient Peripheral arterial occlusion 02/18 aorta with runoff CTA: No significant stenosis or dissection within the aorta or iliac arteries. Focal area of high-grade stenosis of the proximal inferior mesenteric artery. Multifocal stenosis within the bilateral lower extremity arterial systems. Distal right posterior tibial artery, distal left anterior tibial artery, and distal bilateral peroneal arteries are likely occluded. Vascular team on board, status post intervention on 02/25 [see above] No significant pain involving the extremities Other chronic medical conditions:History of CVA/HTN/HLD/DM2-->> continue home meds as and when able. Hold statin while on daptomycin. Patient with diabetic neuropathy and diabetic foot ulcers. Sliding scale while in hospital. A1c of 6.7 in August 2021. DVT prophylaxis:Heparin sq Full code PT/OT, CM to assist with DC planning. Will need SNF. stable. Awaiting placement Admission and Anticipated Discharge Date Admission Date: February 17, 2022 Subjective 03/04/2022 The patient was seen and examined in medical floor He has been stable without any significant pain Has been participating in physical therapy to some extent Waiting to be transferred to a skilled care facility Review of Systems Review of Systems: At least ten systems reviewed and negative except as noted in the HPI. Physical Exam Physical Exam: Lying in bed comfortably Constitutional: well developed, well nourished, + ill appearing and + obese Eyes: PERRL, conjunctivae normal, anicteric sclerae ENMT: external ear and nose normal, oropharynx normal Neck: trachea midline, no thyromegaly Respiratory: no respiratory distress Auscultation: lungs clear to auscultation bilaterally Cardiovascular: Rate/Rhythm: regular rate and regular rhythm; not tachycardic Heart Sounds: normal S1 and normal S2; no murmur Extremities: + edema (Trace edema bilaterally more on the right than the left) Gastrointestinal (Abdomen): Inspection/Auscultation: normal bowel sounds; abdomen not distended Percussion/Palpation: abdomen soft; abdomen nontender Musculoskeletal: Right foot is in wound VAC Neurologic: normal touch/pain/proprioception (Except right foot) and moves all extremities; no focal motor deficits Lymphatic: no cervical or axillary lymphadenopathy Results & Data Results & Data ([facility]) Vital Signs (Past 12 Hours) Vital Signs Temp Pulse Resp BP Pulse Ox O2 Del Method 03/04/22 15:18 36.9 C 65 16 139/76 97 Room Air 03/04/22 07:34 36.7 C 54 L 16 140/72 96 Room Air Laboratory Results Short CBC 03/04/22 Range/Units 07:52 WBC 7.53 (4.8-10.8) K/ul Hgb 12.7 L (14.0-18.0) g/dl Hct 39.9 L (40.1-51.0) % Plt Count 324 (130-400) K/uL BMP 03/04/22 07:52 Sodium 138 Potassium 4.0 Chloride 104 Carbon Dioxide 26 BUN 15 Creatinine 0.95 Glucose 138 H Calcium 9.6 Medications Administered Current Inpatient Medications Acetaminophen (Acetaminophen 325 Mg Tab) 650 mg PO Q4H PRN PRN Reason: pain/fever Stop: 03/19/22 23:26 Last Admin: 02/28/22 03:39 Dose: 650 mg Clopidogrel Bisulfate (Clopidogrel Bisulfate 75 Mg Tab) 75 mg PO QAM [facility] Stop: 03/22/22 08:59 Last Admin: 03/04/22 07:39 Dose: 75 mg Dextrose (Dextrose 50% 50 Ml Syringe) 25 - 50 ml IV UD PRN; Protocol PRN Reason: Hypoglycemia Protocol Stop: 03/19/22 23:26 Dutasteride (Dutasteride) 1 each PO DAILY HOANG Stop: 03/23/22 08:59 Last Admin: 03/04/22 07:40 Dose: 1 each Glucagon (Glucagon For Inj 1 Mg Vial) 1 mg SQ UD PRN; Protocol PRN Reason: Hypoglycemia Protocol Stop: 03/19/22 23:26 Glucose (Glucose 40% Gel 15 Gm Tube) 15 - 30 gm PO UD PRN; Protocol PRN Reason: Hypoglycemia Protocol Stop: 03/19/22 23:26 Glucose (Glucose 10 Tab/Tube) 4 - 8 tab PO UD PRN; Protocol PRN Reason: Hypoglycemia Treatment Stop: 03/19/22 23:26 Heparin Sodium (Porcine) (Heparin Sod 5,000 Unit/0.5 Ml Vial) 5,000 units SQ Q12 HOANG Stop: 03/21/22 22:59 Last Admin: 03/04/22 07:40 Dose: 5,000 units Promethazine HCl 12.5 mg/ (Sodium Chloride) 50.5 mls @ 202 mls/hr IV Q6H PRN PRN Reason: Nausea And Vomiting Stop: 03/19/22 21:53 Last Infusion: 02/27/22 11:16 Dose: Infused Daptomycin 475 mg/ Syringe 9.5 mls @ 4.75 mls/min IV Q24H HOANG; Protocol Stop: 04/03/22 10:59 Last Admin: 03/04/22 14:38 Dose: 4.75 mls/min Ertapenem 1,000 mg/ Syringe 10 mls @ 2 mls/min IV Q24H HOANG Stop: 04/07/22 14:59 Last Admin: 03/04/22 14:38 Dose: 2 mls/min Insulin Aspart (Insulin Aspart Per Unit) 0 units SC ACHS HOANG Stop: 03/30/22 07:29 Last Admin: 03/04/22 12:46 Dose: 7 units Insulin Glargine (Lantus Per Unit Charge) 10 units SQ HS HOANG Stop: 03/28/22 20:59 Last Admin: 03/03/22 21:39 Dose: 10 units Lactobacillus Acidophilus (Advanced Probiotic 1250 Mg Capsule) 2 cap PO DAILY [facility] Stop: 03/23/22 12:59 Last Admin: 03/04/22 07:40 Dose: 2 cap Lorazepam (Lorazepam 0.5 Mg Tab) 0.5 mg PO TID PRN PRN Reason: Anxiety Stop: 03/19/22 21:53 Metoprolol Tartrate (Metoprolol Tartrate 25 Mg Tab) 25 mg PO QAM [facility] Stop: 03/20/22 06:14 Last Admin: 03/04/22 07:37 Dose: Not Given Miscellaneous (Carbohydrates For Hypoglycemia ) 15 - 30 gm PO UD PRN PRN Reason: Hypoglycemia Protocol Stop: 03/19/22 23:26 Olmesartan (Olmesartan Medoxomil 40 Mg Tab) 40 mg PO QAM [facility] Stop: 03/20/22 02:19 Last Admin: 03/04/22 07:40 Dose: 40 mg Pantoprazole Sodium (Pantoprazole 40 Mg Tab) 40 mg PO QAM [facility] Stop: 03/20/22 08:59 Last Admin: 03/04/22 07:39 Dose: 40 mg
[2022-03-04] MEDS: LANTUS PER UNIT CHARGE SQ SCH (21:50)
[2022-03-04] MEDS: oxyCODONE HCL IR 5 MG TAB (IMMEDIATE RELEASE) PO PRN (21:51)
[2022-03-05] MEDS: INSULIN ASPART PER UNIT SC SCH ×4 (09:15→21:38)
[2022-03-05] MEDS: METOPROLOL TARTRATE 25 MG TAB PO SCH (09:22)
[2022-03-05] MEDS: HEPARIN SOD 5,000 UNIT/0.5 ML VIAL SQ SCH ×2 (09:23→21:39)
[2022-03-05] MEDS: DUTASTERIDE PO SCH (09:25)
[2022-03-05] MEDS: OLMESARTAN MEDOXOMIL 40 MG TAB PO SCH (09:28)
[2022-03-05] MEDS: ADVANCED PROBIOTIC 1250 MG CAPSULE PO SCH (09:28)
[2022-03-05] MEDS: PANTOprazole 40 MG TAB PO SCH (09:28)
[2022-03-05] MEDS: CLOPIDOGREL BISULFATE 75 MG TAB PO SCH (09:29)
[2022-03-05] MEDS: DAPTOmycin 475 MG in SYRINGE 0 ML IV SCH (14:56)
[2022-03-05] MEDS: ERTAPENEM SODIUM 1,000 MG in SYRINGE 0 ML IV SCH (14:56)
--- NOTE | 2022-03-05 16:03 | Hospitalist Progress Note ---
Date of Service March 05, 2022 Assessment & Plan (1) Diabetic foot infection: (2) Diabetic foot ulcer associated with type 2 diabetes mellitus: (3) Osteomyelitis of right foot: (4) Peripheral arterial disease: (5) Stroke: (6) GERD (gastroesophageal reflux disease): Plan Diabetic foot infection x right No overt sepsis POA. 02/18: I&D right foot, partial excision of fifth ray right foot, delayed primary closure right foot wound. By Dr. Gianluca Jackson. 02/21: Right foot debridement, wound VAC application. By Dr. Gianluca Jackson. 02/25: Right leg arteriogram, lithotripsy of proximal popliteal artery, mechanical closure of left femoral artery. By Dr. Howard Ocampo. Assistant Service Manager on board, wound VAC changes Thursday. 02/18 wound culture: Reviewed; await 02/24 pathology results. 02/18 pathology results suggestive of focal acute osteomyelitis in amputated right fifth toe. 02/17 blood culture: Negative 02/27: Amputation Right 4th Toe by Dr. Jackson Remained stable and awaiting approval and transfer to skilled care facility Will check CMP tomorrow Patient reports pain under control, ID evaluated 02/24, continue with daptomycin and ertapenem for 6 weeks from the date of his last surgery. Weekly CK on daptomycin. Hold statin continue w/ probiotic. Remains stable and awaiting to be transferred Will need follow-up with the emergency medicine physician assistant as an outpatient Pain is controlled with current medication Peripheral arterial occlusion 02/18 aorta with runoff CTA: No significant stenosis or dissection within the aorta or iliac arteries. Focal area of high-grade stenosis of the proximal inferior mesenteric artery. Multifocal stenosis within the bilateral lower extremity arterial systems. Distal right posterior tibial artery, distal left anterior tibial artery, and distal bilateral peroneal arteries are likely occluded. Vascular team on board, status post intervention on 02/25 [see above] No significant pain involving the extremities Other chronic medical conditions:History of CVA/HTN/HLD/DM2-->> continue home meds as and when able. Hold statin while on daptomycin. Patient with diabetic neuropathy and diabetic foot ulcers. Sliding scale while in hospital. A1c of 6.7 in August 2021. DVT prophylaxis:Heparin sq Full code PT/OT, CM to assist with DC planning. Will need SNF. stable. Awaiting placement Admission and Anticipated Discharge Date Admission Date: February 17, 2022 Subjective 03/04/2022 The patient was seen and examined in medical floor He has been stable without any significant pain Has been participating in physical therapy to some extent Waiting to be transferred to a skilled care facility 03/05/2022 The patient was seen and examined in medical floor Denies any complaints and remained stable Wound VAC in situ in the foot is looking better Has been able to move the toes without any pain Review of Systems Review of Systems: At least ten systems reviewed and negative except as noted in the HPI. Physical Exam Physical Exam: Lying in bed comfortably Constitutional: well developed, well nourished, + ill appearing and + obese Eyes: PERRL, conjunctivae normal, anicteric sclerae ENMT: external ear and nose normal, oropharynx normal Neck: trachea midline, no thyromegaly Respiratory: no respiratory distress Auscultation: lungs clear to auscultation bilaterally Cardiovascular: Rate/Rhythm: regular rate and regular rhythm; not tachycardic Heart Sounds: normal S1 and normal S2; no murmur Extremities: + edema (Trace edema bilaterally more on the right than the left) Gastrointestinal (Abdomen): Inspection/Auscultation: normal bowel sounds; abdomen not distended Percussion/Palpation: abdomen soft; abdomen nontender Neurologic: normal touch/pain/proprioception (Except right foot) and moves all extremities; no focal motor deficits Lymphatic: no cervical or axillary lymphadenopathy Results & Data Results & Data ([facility]) Vital Signs (Past 12 Hours) Vital Signs Temp Pulse Resp BP Pulse Ox O2 Del Method 03/05/22 14:50 36.3 C L 59 L 14 117/64 94 Room Air 03/05/22 07:27 36.4 C L 61 16 143/80 H 97 Room Air Medications Administered Current Inpatient Medications Acetaminophen (Acetaminophen 325 Mg Tab) 650 mg PO Q4H PRN PRN Reason: pain/fever Stop: 03/19/22 23:26 Last Admin: 02/28/22 03:39 Dose: 650 mg Clopidogrel Bisulfate (Clopidogrel Bisulfate 75 Mg Tab) 75 mg PO QAM [facility] Stop: 03/22/22 08:59 Last Admin: 03/05/22 09:29 Dose: 75 mg Dextrose (Dextrose 50% 50 Ml Syringe) 25 - 50 ml IV UD PRN; Protocol PRN Reason: Hypoglycemia Protocol Stop: 03/19/22 23:26 Dutasteride (Dutasteride) 1 each PO DAILY HOANG Stop: 03/23/22 08:59 Last Admin: 03/05/22 09:25 Dose: 1 each Glucagon (Glucagon For Inj 1 Mg Vial) 1 mg SQ UD PRN; Protocol PRN Reason: Hypoglycemia Protocol Stop: 03/19/22 23:26 Glucose (Glucose 40% Gel 15 Gm Tube) 15 - 30 gm PO UD PRN; Protocol PRN Reason: Hypoglycemia Protocol Stop: 03/19/22 23:26 Glucose (Glucose 10 Tab/Tube) 4 - 8 tab PO UD PRN; Protocol PRN Reason: Hypoglycemia Treatment Stop: 03/19/22 23:26 Heparin Sodium (Porcine) (Heparin Sod 5,000 Unit/0.5 Ml Vial) 5,000 units SQ Q12 HOANG Stop: 03/21/22 22:59 Last Admin: 03/05/22 09:23 Dose: 5,000 units Promethazine HCl 12.5 mg/ (Sodium Chloride) 50.5 mls @ 202 mls/hr IV Q6H PRN PRN Reason: Nausea And Vomiting Stop: 03/19/22 21:53 Last Infusion: 02/27/22 11:16 Dose: Infused Daptomycin 475 mg/ Syringe 9.5 mls @ 4.75 mls/min IV Q24H [facility]; Protocol Stop: 04/03/22 10:59 Last Admin: 03/05/22 14:56 Dose: 4.75 mls/min Ertapenem 1,000 mg/ Syringe 10 mls @ 2 mls/min IV Q24H [facility] Stop: 04/07/22 14:59 Last Admin: 03/05/22 14:56 Dose: 2 mls/min Insulin Aspart (Insulin Aspart Per Unit) 0 units SC ACHS HOANG Stop: 03/30/22 07:29 Last Admin: 03/05/22 12:49 Dose: 8 units Insulin Glargine (Lantus Per Unit Charge) 10 units SQ HS HOANG Stop: 03/28/22 20:59 Last Admin: 03/04/22 21:50 Dose: 10 units Lactobacillus Acidophilus (Advanced Probiotic 1250 Mg Capsule) 2 cap PO DAILY HOANG Stop: 03/23/22 12:59 Last Admin: 03/05/22 09:28 Dose: 2 cap Lorazepam (Lorazepam 0.5 Mg Tab) 0.5 mg PO TID PRN PRN Reason: Anxiety Stop: 03/19/22 21:53 Metoprolol Tartrate (Metoprolol Tartrate 25 Mg Tab) 25 mg PO [facility] Stop: 03/20/22 06:14 Last Admin: 03/05/22 09:22 Dose: 25 mg Miscellaneous (Carbohydrates For Hypoglycemia ) 15 - 30 gm PO UD PRN PRN Reason: Hypoglycemia Protocol Stop: 03/19/22 23:26 Olmesartan (Olmesartan Medoxomil 40 Mg Tab) 40 mg PO [facility] Stop: 03/20/22 02:19 Last Admin: 03/05/22 09:28 Dose: 40 mg Oxycodone HCl (Oxycodone Hcl Ir 5 Mg Tab (Immediate Release)) 10 mg PO Q4H PRN PRN Reason: Pain Stop: 03/18/22 21:37 Last Admin: 03/04/22 21:51 Dose: 10 mg Pantoprazole Sodium (Pantoprazole 40 Mg Tab) 40 mg PO [facility] Stop: 03/20/22 08:59 Last Admin: 03/05/22 09:28 Dose: 40 mg
[2022-03-05] MEDS: LANTUS PER UNIT CHARGE SQ SCH (21:39)
[2022-03-06 06:06] LABS: Basophils # (auto) 0.04 K/uL (0-0.2); Basophils % (auto) 0.5 %; Eosinophils # (auto) 0.28 K/uL (0-0.50); Eosinophils % (auto) 3.7 %; Hematocrit (blood only) 39.2 % (40.1-51.0); Hemoglobin 12.7 g/dl (14.0-18.0); Immature Granulocytes # (auto) 0.03 K/uL (0.00-0.02); Immature Granulocytes % (auto) 0.4 %; Lymphocytes # (auto) 1.88 K/uL (1.2-3.4); Lymphocytes % (auto) 24.8 %; Mean Corpuscular Hemoglobin 28.3 pg (25.0-34.0); Mean Corpuscular Hgb Conc 32.4 g/dL (32.0-36.0); Mean Corpuscular Volume 87.5 fL (80.0-100.0); Mean Platelet Volume 9.5 fL (9.4-12.4); Monocytes # (auto) 0.47 K/uL (0.24-0.82); Monocytes % (auto) 6.2 %; Neutrophils # (auto) 4.88 K/uL (1.4-6.5); Neutrophils % (auto) 64.4 %; Platelet Count 292 K/uL (130-400); RDW Coefficient of Variation 13.5 % (11.5-14.5); Red Blood Count 4.48 M/uL (4.63-6.08); White Blood Count 7.58 K/ul (4.8-10.8)
[2022-03-06 06:51] LABS: Albumin Globulin Ratio 0.9 (0.9-2); Albumin Level 3.3 gm/dl (3.4-5.0); BUN Creatinine Ratio 25.5 (10-20); Bilirubin,Total 1.2 mg/dl (0.2-1.0); Calcium 9.3 mg/dl (8.5-10.1); Creatinine Clr Calc Pharmacy 88.8 ml/min; Est GFR (African American) 97.4 ml/min; Est GFR (Non-African American) 84.1 ml/min; Globulin 3.7 gm/dl (2.5-4.0)
--- NOTE | 2022-03-06 07:17 | Orthopedic Progress Note ---
Date of Service March 06, 2022 Assessment & Plan (1) Diabetic foot ulcer associated with type 2 diabetes mellitus: Plan: Patient seen, evaluated, and treated. Excellent signs of healing with granulation tissue present. I did discuss use of skin graft or rotational skin plasty for definitive closure. Will continue to follow while Patient is in house. Additional procedures may be completed as out Patient. Patient is partial weight bearing to right heel. Thank you for allowing me to participate in the care of this Patient. Admission and Anticipated Discharge Date Admission Date: February 17, 2022 Subjective Patient status post right foot surgery. Wound vac intact and running 125mmHg. He is resting comfortably, seen at bedside. He has no complaints. Review of Systems Review of Systems: All systems reviewed & are unremarkable except as noted in HPI & below Physical Exam Physical Exam: Wound vac intact and running continuous 125mmHg. Results & Data ([facility]) Vital Signs (Past 12 Hours) Vital Signs Temp Pulse Resp BP Pulse Ox O2 Del Method 03/05/22 21:43 36.6 C 56 L 18 144/78 H 96 Room Air
[2022-03-06] MEDS: INSULIN ASPART PER UNIT SC SCH ×4 (08:44→20:45)
[2022-03-06] MEDS: HEPARIN SOD 5,000 UNIT/0.5 ML VIAL SQ SCH ×2 (08:49→22:15)
[2022-03-06] MEDS: PANTOprazole 40 MG TAB PO SCH (08:51)
[2022-03-06] MEDS: ADVANCED PROBIOTIC 1250 MG CAPSULE PO SCH (08:52)
[2022-03-06] MEDS: DUTASTERIDE PO SCH (08:52)
[2022-03-06] MEDS: OLMESARTAN MEDOXOMIL 40 MG TAB PO SCH (08:54)
[2022-03-06] MEDS: METOPROLOL TARTRATE 25 MG TAB PO SCH (08:54)
[2022-03-06] MEDS: CLOPIDOGREL BISULFATE 75 MG TAB PO SCH (08:55)
[2022-03-06] MEDS: DAPTOmycin 475 MG in SYRINGE 0 ML IV SCH (14:04)
[2022-03-06] MEDS: ERTAPENEM SODIUM 1,000 MG in SYRINGE 0 ML IV SCH (14:04)
--- NOTE | 2022-03-06 14:33 | Hospitalist Progress Note ---
Date of Service March 06, 2022 Assessment & Plan (1) Diabetic foot infection: (2) Diabetic foot ulcer associated with type 2 diabetes mellitus: (3) Osteomyelitis of right foot: (4) Peripheral arterial disease: (5) Stroke: (6) GERD (gastroesophageal reflux disease): Plan Diabetic foot infection x right No overt sepsis POA. 02/18: I&D right foot, partial excision of fifth ray right foot, delayed primary closure right foot wound. By Dr. Gianluca Jackson. 02/21: Right foot debridement, wound VAC application. By Dr. Gianluca Jackson. 02/25: Right leg arteriogram, lithotripsy of proximal popliteal artery, mechanical closure of left femoral artery. By Dr. Howard Ocampo. Plane Captain on board, wound VAC changes Thursday. 02/18 wound culture: Reviewed; await 02/24 pathology results. 02/18 pathology results suggestive of focal acute osteomyelitis in amputated right fifth toe. 02/17 blood culture: Negative 02/27: Amputation Right 4th Toe by Dr. Jackson Remained stable and awaiting approval and transfer to skilled care facility Patient reports pain under control, ID evaluated 02/24, continue with daptomycin and ertapenem for 6 weeks from the date of his last surgery. Weekly CK on daptomycin. Hold statin Continue w/ probiotic. Remains stable and awaiting to be transferred Will need follow-up with the mold presser as an outpatient Pain is controlled with current medication Peripheral arterial occlusion 02/18 aorta with runoff CTA: No significant stenosis or dissection within the aorta or iliac arteries. Focal area of high-grade stenosis of the proximal inferior mesenteric artery. Multifocal stenosis within the bilateral lower extremity arterial systems. Distal right posterior tibial artery, distal left anterior tibial artery, and distal bilateral peroneal arteries are likely occluded. Vascular team on board, status post intervention on 02/25 [see above] No significant pain involving the extremities Other chronic medical conditions:History of CVA/HTN/HLD/DM2-->> continue home meds as and when able. Hold statin while on daptomycin. Patient with diabetic neuropathy and diabetic foot ulcers. Sliding scale while in hospital. A1c of 6.7 in August 2021. DVT prophylaxis:Heparin sq Full code PT/OT, CM to assist with DC planning. Will need SNF. stable. Awaiting placement Admission and Anticipated Discharge Date Admission Date: February 17, 2022 Supervising Physician Co-Signing Physician Notes Attending addendum: The patient was seen and examined in medical floor Remains stable without any significant symptoms Awaiting placement On examination Lying in bed comfortably Hemodynamically stable Chestclear HeartS1-S2 regular Abdomenbenign Extremitiesright foot is in wound VAC Labs are noted Has right foot diabetic ulcer Followed up by mold presser regularly Agree with assessment and plan as outlined above by KATHERINE Collins DR Subjective Seen in 353 in follow up for diabetic foot wounds and infection and PAD. Resting comfortably during exam. States he has been participating with PT and OT "a little bit". No new symptoms or events overnight. Wound vac in place. Denies fever, chills, lightheadedness, CP, SOB, N/V, abdominal pain, dysuria, diarrhea or constipation. Awaiting placement. Review of Systems Review of Systems: At least ten systems reviewed and negative except as noted in the HPI. Physical Exam Physical Exam: Gen: WD/WN, NAD, lying in bed, A&Ox3, flat affect HEENT: Normocephalic, atraumatic, conjunctivae moist, sclerae anicteric, mucous membranes moist Lung: Clear to Auscultation bilaterally, no wheezes/rales/rhonchi Heart: Regular rate, regular rhythm, no murmurs, rubs, or gallops Abdomen: Soft, NT, ND +BS x 4 Extremities: Right foot with dressing c/d/i, R 4th and 5th toe amputation with surrounding necrotic tissue. +wound vac present. No edema Skin: Warm, no rash Results & Data Results & Data ([facility]) Vital Signs (Past 12 Hours) Vital Signs Temp Pulse Resp BP Pulse Ox O2 Del Method 03/06/22 08:34 36.8 C 56 L 16 127/67 96 Room Air Laboratory Results Short CBC 03/06/22 Range/Units 05:51 WBC 7.58 (4.8-10.8) K/ul Hgb 12.7 L (14.0-18.0) g/dl Hct 39.2 L (40.1-51.0) % Plt Count 292 (130-400) K/uL BMP 03/06/22 05:51 Sodium 137 Potassium 4.0 Chloride 104 Carbon Dioxide 26 BUN 25 H Creatinine 0.98 Glucose 137 H Calcium 9.3 Cardiac Enzymes 03/06/22 Range/Units 05:51 Total Creatine Kinase 37 (30-223) U/L Liver Function 03/06/22 Range/Units 05:51 Total Bilirubin 1.2 H (0.2-1.0) mg/dl AST 11 L (13-39) U/L ALT 8 (7-52) U/L Alkaline Phosphatase 52 (34-104) U/L Albumin 3.3 L (3.4-5.0) gm/dl Diagnostic Findings Foot X-Ray 02/17/22 16:25 XR foot RT min 3V routine CLINICAL HISTORY: Kicked door jam, infection, DM 2 COMPARISON: None FINDINGS: Alignment of the right foot is anatomic. Tarsometatarsal joints are intact. There is no acute fracture. There is an old, healed fracture the distal shaft of the right fifth metatarsal. A few punctate densities project lateral to the right fifth proximal phalanx. Soft tissue swelling is present. Note is made of numerous locules of soft tissue gas within the right forefoot, at the level of the fourth and fifth digits. The soft tissue gas likely extends the level of the proximal metatarsal shafts. No evidence for acute osteomyelitis. Vascular calcification is incidentally noted. There is plantar and posterior calcaneal spurring. Moderate degenerative changes within the right foot are present. IMPRESSION: 1. Findings suggestive of an extensive infectious process of the lateral dorsal right forefoot with soft tissue swelling and soft tissue gas, as described above. The findings suggest a gas-forming infectious process. No evidence for acute osteomyelitis. 2. No acute fracture. 3. A few punctate densities which project lateral to the right fifth proximal phalanx. This could reflect debris/tiny foreign bodies on or just deep to the skin. ACT 112: Negative or not required by law. Electronically signed by: Jack Hairston M.D. 02/17/2022 6:[address] 02/17/22 19:25 CT foot RT w con HISTORY: 61 years-old Male eval for osseous involvement acute right foot pain with soft tissue infection. Clinical concern for osteomyelitis. COMPARISON: Right foot radiographs of same day TECHNIQUE: Multiple axial CT images of the right foot were obtained following the intravenous administration of 85 mL Optiray 350. A dose lowering technique w as used consistent with the principals of ALARA. FINDINGS: No acute fracture, dislocation or osseous erosion identified. Moderate to large enthesophytes of the calcaneus. Multifocal osteoarthritis is predominantly mild and mild to moderate. Chronic appearing osteochondral defect of the medial talar dome measures up to approximately 1.5 cm. Arterial calcifications are noted. No definite opaque foreign body. Tendons and ligaments are suboptimally evaluated by CT technique. No widening of the Lisfranc interval. There is mild to moderate diffuse subcutaneous edema. No abscess identified. Subcutaneous emphysema within the fourth webspace and plantar aspect of the fifth toe also noted with possible plantar ulcer. Subcutaneous emphysema extends into the dorsal tissues of the forefoot. IMPRESSION: 1. Findings suggestive of cellulitis with subcutaneous emphysema of the dorsal lateral forefoot likely associated with gas forming organism. No abscess identified. 2. No evidence of osteomyelitis. ACT 112: Negative or not required by law. The above report was generated using voice recognition software. It may contain grammatical, syntax or spelling errors. Electronically signed by: Pipo Travis M.D. 02/18/2022 7:11 AM Aorta w/Runoff CTA 02/18/22 18:43 CT ANGIOGRAM OF THE ABDOMEN, PELVIS, BILATERAL LOWER EXTREMITIES HISTORY: Right foot wound. assess arterial flow in legs/feet TECHNIQUE: Multiaxial CT images of the abdomen, pelvis, bilateral lower extremities were performed following the intravenous ministration of contrast. M aximum intensity projection images were also obtained. COMPARISON STUDY: Right foot CT 02/17/2022. FINDINGS: Interval amputation of the right fifth toe. Soft tissue gas within the dorsum of the forefoot and fourth toe is again noted. This could be due to the postoperative change or a gas-forming organism there are few bibasilar linear densities consistent with subsegmental atelectasis. No pneumoperitoneum. No pneumatosis. Small left-sided hydrocele is noted. Multiple small gallstones. No gallbladder wall thickening. The liver, spleen, adrenal glands, and pancreas are unremarkable. No retroperitoneal lymphadenopathy. 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 Mild to moderate bilateral cortical renal thinning which is likely chronic. Otherwise, the ki dneys enhance normally. No hydronephrosis. Residual contrast within the bladder from the recent CT examination. The prostate gland is mildly enlarged. No bowel wall thickening or obstruction. Normal appendix. Mild to moderate atherosclerotic plaque within the normal caliber abdominal aorta and iliac arteries. No evidence for an aortic dissection. No central venous stenosis within the celiac or superior mesenteric arteries. There is a focal area of high-grade stenosis within the proximal left inferior mesenteric artery on image 280. There are 3 renal arteries bilaterally. Some of these renal arteries demonstrate mild to moderate stenosis. No significant stenosis or occlusion within the bilateral iliac arteries. Scattered calcified plaque within the right common and superficial femoral a rteries. There is mild to moderate multifocal stenosis throughout the majority of the mid to distal right superficial femoral artery. There is a focal area of high-grade stenosis within the distal right superficial femoral artery on image 752. Mild narrowing throughout the right popliteal artery. There is a focal area of high-grade stenosis at the distal right tibioperoneal trunk. The right anteri or tibial artery is patent. Multifocal narrowing with possible occlusion of the distal right posterior tibial artery. The right peroneal artery is diminutive and may be occluded distally. The left common femoral artery is patent. Multifocal moderate to severe narrowing within the mid to distal left superficial femoral artery. This is most pronounced within the distal left superficial femoral artery which demonstrates an area of 90% stenosis on image 748. There is mild multifocal narrowing within the left popliteal artery. Focal high-grade stenosis at the left tibioperoneal trunk. The distal anterior tibial artery and distal peroneal arteries are diminutive and likely occluded. Calcified plaque within the distal posterior tibial artery which limits evaluation. No definite occlusion within the left posterior tibial artery. IMPRESSION: 1. Interval amputation of the right fifth toe. Soft tissue gas surrounding the fourth toe and dorsum of the forefoot is again noted. This could be due to postoperative change or a gas-forming organism. 2. Cholelithiasis. 3. No significant stenosis or dissection within the aorta or iliac arteries. 4. Focal area of high-grade stenosis of the proximal inferior mesenteric artery. 5. Multifocal stenoses within the bilateral lower extremity arterial systems as described above . 6. The distal right posterior tibial artery, distal left anterior tibial artery, and distal bilateral peroneal arteries are likely occluded. 7. Additional findings as described above. ACT 112: Negative or not required by law. Electronically signed by: Mau Hewitt M.D. 02/18/2022 9:49 PM
[2022-03-06] MEDS: LANTUS PER UNIT CHARGE SQ SCH (22:24)
[2022-03-07] MEDS: CLOPIDOGREL BISULFATE 75 MG TAB PO SCH (07:46)
[2022-03-07] MEDS: ADVANCED PROBIOTIC 1250 MG CAPSULE PO SCH (07:46)
[2022-03-07] MEDS: OLMESARTAN MEDOXOMIL 40 MG TAB PO SCH (07:47)
[2022-03-07] MEDS: DUTASTERIDE PO SCH (07:47)
[2022-03-07] MEDS: PANTOprazole 40 MG TAB PO SCH (07:47)
[2022-03-07] MEDS: METOPROLOL TARTRATE 25 MG TAB PO SCH (07:48)
[2022-03-07] MEDS: HEPARIN SOD 5,000 UNIT/0.5 ML VIAL SQ SCH ×2 (07:54→21:28)
[2022-03-07] MEDS: INSULIN ASPART PER UNIT SC SCH ×4 (09:05→21:29)
[2022-03-07] MEDS: ERTAPENEM SODIUM 1,000 MG in SYRINGE 0 ML IV SCH (14:26)
[2022-03-07] MEDS: DAPTOmycin 475 MG in SYRINGE 0 ML IV SCH (14:26)
--- NOTE | 2022-03-07 15:03 | Hospitalist Progress Note ---
Date of Service March 07, 2022 Assessment & Plan (1) Diabetic foot infection: (2) Diabetic foot ulcer associated with type 2 diabetes mellitus: (3) Osteomyelitis of right foot: (4) Peripheral arterial disease: (5) Stroke: (6) GERD (gastroesophageal reflux disease): Plan Diabetic foot infection x right No overt sepsis POA. 02/18: I&D right foot, partial excision of fifth ray right foot, delayed primary closure right foot wound. By Dr. Gianluca Jackson. 02/21: Right foot debridement, wound VAC application. By Dr. Gianluca Jackson. 02/25: Right leg arteriogram, lithotripsy of proximal popliteal artery, mechanical closure of left femoral artery. By Dr. Howard Ocampo. Floor Broker on board, wound VAC changes Thursday. 02/18 wound culture: Reviewed; await 02/24 pathology results. 02/18 pathology results suggestive of focal acute osteomyelitis in amputated right fifth toe. 02/17 blood culture: Negative 02/27: Amputation Right 4th Toe by Dr. Jackson 03/07: hotel clerk placed new dressings. Per picture and documentation, wound bed is healing with some slough present. Vac in place Encouraged patient to reposition or ambulate to chair but prefers to remain supine Remained stable and awaiting approval and transfer to skilled care facility Patient reports pain under control, ID evaluated 02/24, continue with daptomycin and ertapenem for 6 weeks from the date of his last surgery. Weekly CK on daptomycin. Hold statin Continue w/ probiotic. Remains stable and awaiting to be transferred Will need follow-up with the block and case maker as an outpatient Pain is controlled with current medication Peripheral arterial occlusion 02/18 aorta with runoff CTA: No significant stenosis or dissection within the aorta or iliac arteries. Focal area of high-grade stenosis of the proximal inferior mesenteric artery. Multifocal stenosis within the bilateral lower extremity arterial systems. Distal right posterior tibial artery, distal left anterior tibial artery, and distal bilateral peroneal arteries are likely occluded. Vascular team on board, status post intervention on 02/25 [see above] No significant pain involving the extremities Other chronic medical conditions:History of CVA/HTN/HLD/DM2-->> continue home meds as and when able. Hold statin while on daptomycin. Patient with diabetic neuropathy and diabetic foot ulcers. Sliding scale while in hospital. A1c of 6.7 in August 2021. DVT prophylaxis:Heparin sq Full code PT/OT, CM to assist with DC planning. Will need SNF. stable. Awaiting placement Admission and Anticipated Discharge Date Admission Date: February 17, 2022 Supervising Physician Co-Signing Physician Notes Attending addendum The patient was seen and examined in medical floor He has been depressed but denies any acute symptoms Still awaiting placement On examination Lying in bed comfortably Hemodynamically stable Clear chest Heart-S1, [id number] Abdomen-benign Extremities-right foot is in wound VAC His labs and electrolytes and medication reviewed Has diabetic foot infection on the right side We will continue IV antibiotic as advised by the ID specialist Floor Broker on board Agree with assessment plan as outlined above by SUSSY Collins DR Subjective Seen in 353 in follow up for diabetic foot wounds and infection and PAD. Resting comfortably during exam. States he has been participating with PT and OT "a little bit". No new symptoms or events overnight. Wound vac in place. Denies fever, chills, lightheadedness, CP, SOB, N/V, abdominal pain, dysuria, diarrhea or constipation. hotel clerk just placed new dressings. Awaiting placement. Review of Systems Review of Systems: At least ten systems reviewed and negative except as noted in the HPI. Physical Exam Physical Exam: Gen: WD/WN, NAD, lying in bed, A&Ox3, flat affect HEENT: Normocephalic, atraumatic, conjunctivae moist, sclerae anicteric, mucous membranes moist Lung: Clear to Auscultation bilaterally, no wheezes/rales/rhonchi Heart: Regular rate, regular rhythm, no murmurs, rubs, or gallops Abdomen: Soft, NT, ND +BS x 4 Extremities: Right foot with dressing c/d/i, R 4th and 5th toe amputation. +wound vac present. No edema Skin: Warm, no rash Results & Data Results & Data ([facility]) Vital Signs (Past 12 Hours) Vital Signs Temp Pulse Resp BP Pulse Ox O2 Del Method 03/07/22 07:44 36.8 C 57 L 14 155/86 H 97 Room Air
[2022-03-07] MEDS ORDERED: LANTUS PER UNIT CHARGE SQ SCH (21:00)
[2022-03-07] MEDS: LANTUS PER UNIT CHARGE SQ SCH (21:29)
[2022-03-08 06:39] LABS: BUN Creatinine Ratio 23.3 (10-20); Calcium 9.3 mg/dl (8.5-10.1); Creatinine Clr Calc Pharmacy 96.7 ml/min; Est GFR (Non-African American) 93.2 ml/min; Potassium 3.7 mmol/L (3.5-5.1)
[2022-03-08] MEDS: INSULIN ASPART PER UNIT SC SCH ×4 (09:37→21:08)
[2022-03-08] MEDS: OLMESARTAN MEDOXOMIL 40 MG TAB PO SCH (09:39)
[2022-03-08] MEDS: PANTOprazole 40 MG TAB PO SCH (09:39)
[2022-03-08] MEDS: METOPROLOL TARTRATE 25 MG TAB PO SCH (09:40)
[2022-03-08] MEDS: ADVANCED PROBIOTIC 1250 MG CAPSULE PO SCH (09:41)
[2022-03-08] MEDS: CLOPIDOGREL BISULFATE 75 MG TAB PO SCH (09:42)
[2022-03-08] MEDS: HEPARIN SOD 5,000 UNIT/0.5 ML VIAL SQ SCH ×2 (09:42→21:09)
[2022-03-08] MEDS: DUTASTERIDE PO SCH (09:51)
[2022-03-08] MEDS: DAPTOmycin 475 MG in SYRINGE 0 ML IV SCH (15:11)
[2022-03-08] MEDS: ERTAPENEM SODIUM 1,000 MG in SYRINGE 0 ML IV SCH (15:12)
--- NOTE | 2022-03-08 15:38 | Hospitalist Progress Note ---
Date of Service March 08, 2022 Assessment & Plan (1) Diabetic foot infection: (2) Diabetic foot ulcer associated with type 2 diabetes mellitus: (3) Osteomyelitis of right foot: (4) Peripheral arterial disease: (5) Stroke: (6) GERD (gastroesophageal reflux disease): Plan Diabetic foot infection x right No overt sepsis POA. 02/18: I&D right foot, partial excision of fifth ray right foot, delayed primary closure right foot wound. By Dr. Gianluca Jackson. 02/21: Right foot debridement, wound VAC application. By Dr. Gianluca Jackson. 02/25: Right leg arteriogram, lithotripsy of proximal popliteal artery, mechanical closure of left femoral artery. By Dr. Howard Ocampo. Coffee Machine Technician on board, wound VAC changes Thursday. 02/18 wound culture: Reviewed; await 02/24 pathology results. 02/18 pathology results suggestive of focal acute osteomyelitis in amputated right fifth toe. 02/17 blood culture: Negative 02/27: Amputation Right 4th Toe by Dr. Jackson 03/07: cheese wrapper placed new dressings. Per picture and documentation, wound bed is healing with some slough present. Vac in place Encouraged patient to reposition or ambulate to chair but prefers to remain supine Remained stable and awaiting approval and transfer to skilled care facility For right foot wound is looking better Patient reports pain under control, ID evaluated 02/24, continue with daptomycin and ertapenem for 6 weeks from the date of his last surgery. Weekly CK on daptomycin. Hold statin Continue w/ probiotic. 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 Focal area of high-grade stenosis of the proximal inferior mesenteric artery. Multifocal stenosis within the bilateral lower extremity arterial systems. Distal right posterior tibial artery, distal left anterior tibial artery, and distal bilateral peroneal arteries are likely occluded. Vascular team on board, status post intervention on 02/25 [see above] No significant pain involving the extremities Other chronic medical conditions:History of CVA/HTN/HLD/DM2-->> continue home meds as and when able. Hold statin while on daptomycin. Patient with diabetic neuropathy and diabetic foot ulcers. Sliding scale while in hospital. A1c of 6.7 in August 2021. DVT prophylaxis:Heparin sq Full code PT/OT, CM to assist with DC planning. Will need SNF. stable. Awaiting placement Admission and Anticipated Discharge Date Admission Date: February 17, 2022 Subjective Seen in 353 in follow up for diabetic foot wounds and infection and PAD. Resting comfortably during exam. States he has been participating with PT and OT "a little bit". No new symptoms or events overnight. Wound vac in place. Denies fever, chills, lightheadedness, CP, SOB, N/V, abdominal pain, dysuria, diarrhea or constipation. cheese wrapper just placed new dressings. Awaiting placement. 03/08/2022 Patient was seen and examined in medical floor He has been stable and denies any symptoms Awaiting placement Review of Systems Review of Systems: All systems reviewed and are unremarkable except as noted below Physical Exam Physical Exam: Lying in bed comfortably Constitutional: well developed, well nourished, + ill appearing and + obese Eyes: PERRL, conjunctivae normal, anicteric sclerae ENMT: external ear and nose normal, oropharynx normal Neck: trachea midline, no thyromegaly Respiratory: no respiratory distress Auscultation: lungs clear to auscultation bilaterally Cardiovascular: Rate/Rhythm: regular rate and regular rhythm; not tachycardic Heart Sounds: normal S1 and normal S2; no murmur Extremities: + edema (Trace edema bilaterally more on the right than the left) Gastrointestinal (Abdomen): Inspection/Auscultation: normal bowel sounds; abdomen not distended Percussion/Palpation: abdomen soft; abdomen nontender Neurologic: normal touch/pain/proprioception (Except right foot) and moves all extremities; no focal motor deficits Lymphatic: no cervical or axillary lymphadenopathy Results & Data Results & Data ([facility]) Vital Signs (Past 12 Hours) Vital Signs Temp Pulse Pulse Resp BP Pulse Ox O2 Del Method 03/08/22 09:39 64 03/08/22 08:00 36.9 C 57 L 16 148/76 H 95 Room Air Laboratory Results [facility] 03/08/22 05:26 Sodium 141 Potassium 3.7 Chloride 108 H Carbon Dioxide 23 BUN 21 Creatinine 0.90 Glucose 117 H Calcium 9.3 Medications Administered Current Inpatient Medications Acetaminophen (Acetaminophen 325 Mg Tab) 650 mg PO Q4H PRN PRN Reason: pain/fever Stop: 03/19/22 23:26 Last Admin: 02/28/22 03:39 Dose: 650 mg Clopidogrel Bisulfate (Clopidogrel Bisulfate 75 Mg Tab) 75 mg PO QAM [facility] Stop: 03/22/22 08:59 Last Admin: 03/08/22 09:42 Dose: 75 mg Dextrose (Dextrose 50% 50 Ml Syringe) 25 - 50 ml IV UD PRN; Protocol PRN Reason: Hypoglycemia Protocol Stop: 03/19/22 23:26 Dutasteride (Dutasteride) 1 each PO DAILY [facility] Stop: 03/23/22 08:59 Last Admin: 03/08/22 09:51 Dose: 1 each Glucagon (Glucagon For Inj 1 Mg Vial) 1 mg SQ UD PRN; Protocol PRN Reason: Hypoglycemia Protocol Stop: 03/19/22 23:26 Glucose (Glucose 40% Gel 15 Gm Tube) 15 - 30 gm PO UD PRN; Protocol PRN Reason: Hypoglycemia Protocol Stop: 03/19/22 23:26 Glucose (Glucose 10 Tab/Tube) 4 - 8 tab PO UD PRN; Protocol PRN Reason: Hypoglycemia Treatment Stop: 03/19/22 23:26 Heparin Sodium (Porcine) (Heparin Sod 5,000 Unit/0.5 Ml Vial) 5,000 units SQ Q12 [facility] Stop: 03/21/22 22:59 Last Admin: 03/08/22 09:42 Dose: 5,000 units Promethazine HCl 12.5 mg/ (Sodium Chloride) 50.5 mls @ 202 mls/hr IV Q6H PRN PRN Reason: Nausea And Vomiting Stop: 03/19/22 21:53 Last Infusion: 02/27/22 11:16 Dose: Infused Daptomycin 475 mg/ Syringe 9.5 mls @ 4.75 mls/min IV Q24H [facility]; Protocol Stop: 04/03/22 10:59 Last Admin: 03/08/22 15:11 Dose: 4.75 mls/min Ertapenem 1,000 mg/ Syringe 10 mls @ 2 mls/min IV Q24H [facility] Stop: 04/07/22 14:59 Last Admin: 03/08/22 15:12 Dose: 2 mls/min Insulin Aspart (Insulin Aspart Per Unit) 0 units SC ACHS [facility] Stop: 03/30/22 07:29 Last Admin: 03/08/22 13:56 Dose: 2 units Insulin Glargine (Lantus Per Unit Charge) 15 units SQ HS [facility] Stop: 04/06/22 20:59 Last Admin: 03/07/22 21:29 Dose: 15 units Lactobacillus Acidophilus (Advanced Probiotic 1250 Mg Capsule) 2 cap PO DAILY [facility] Stop: 03/23/22 12:59 Last Admin: 03/08/22 09:41 Dose: 2 cap Lorazepam (Lorazepam 0.5 Mg Tab) 0.5 mg PO TID PRN PRN Reason: Anxiety Stop: 03/19/22 21:53 Metoprolol Tartrate (Metoprolol Tartrate 25 Mg Tab) 25 mg PO QAM [facility] Stop: 03/20/22 06:14 Last Admin: 03/08/22 09:40 Dose: 25 mg Miscellaneous (Carbohydrates For Hypoglycemia ) 15 - 30 gm PO UD PRN PRN Reason: Hypoglycemia Protocol Stop: 03/19/22 23:26 Olmesartan (Olmesartan Medoxomil 40 Mg Tab) 40 mg PO [facility] Stop: 03/20/22 02:19 Last Admin: 03/08/22 09:39 Dose: 40 mg Oxycodone HCl (Oxycodone Hcl Ir 5 Mg Tab (Immediate Release)) 10 mg PO Q4H PRN PRN Reason: Pain Stop: 03/18/22 21:37 Last Admin: 03/04/22 21:51 Dose: 10 mg Pantoprazole Sodium (Pantoprazole 40 Mg Tab) [facility] [place] Stop: 03/20/22 08:59 Last Admin: 03/08/22 09:39 Dose: 40 mg
[2022-03-08] MEDS: LANTUS PER UNIT CHARGE SQ SCH (21:08)
[2022-03-09 07:16] LABS: Basophils # (auto) 0.04 K/uL (0-0.2); Basophils % (auto) 0.4 %; Eosinophils # (auto) 0.54 K/uL (0-0.50); Eosinophils % (auto) 5.5 %; Hemoglobin 12.6 g/dl (14.0-18.0); Immature Granulocytes # (auto) 0.02 K/uL (0.00-0.02); Immature Granulocytes % (auto) 0.2 %; Lymphocytes # (auto) 1.26 K/uL (1.2-3.4); Lymphocytes % (auto) 12.9 %; Mean Corpuscular Hemoglobin 27.8 pg (25.0-34.0); Mean Corpuscular Hgb Conc 31.5 g/dL (32.0-36.0); Mean Corpuscular Volume 88.3 fL (80.0-100.0); Mean Platelet Volume 9.7 fL (9.4-12.4); Monocytes # (auto) 0.57 K/uL (0.24-0.82); Monocytes % (auto) 5.9 %; Neutrophils # (auto) 7.31 K/uL (1.4-6.5); Neutrophils % (auto) 75.1 %; Platelet Count 247 K/uL (130-400); RDW Standard Deviation 44.8 fL (36.4-46.3); Red Blood Count 4.53 M/uL (4.63-6.08); White Blood Count 9.74 K/ul (4.8-10.8)
[2022-03-09 07:42] LABS: Albumin Globulin Ratio 0.9 (0.9-2); Albumin Level 3.5 gm/dl (3.4-5.0); BUN Creatinine Ratio 25.6 (10-20); Bilirubin,Total 1.6 mg/dl (0.2-1.0); Calcium 9.4 mg/dl (8.5-10.1); Creatinine Clr Calc Pharmacy 101.2 ml/min; Est GFR (Non-African American) 94.9 ml/min; Globulin 3.7 gm/dl (2.5-4.0); Potassium 3.7 mmol/L (3.5-5.1); Total Protein 7.2 gm/dl (6.0-8.3)
[2022-03-09] MEDS: METOPROLOL TARTRATE 25 MG TAB PO SCH (08:33)
[2022-03-09] MEDS: PANTOprazole 40 MG TAB PO SCH (08:33)
[2022-03-09] MEDS: OLMESARTAN MEDOXOMIL 40 MG TAB PO SCH (08:33)
[2022-03-09] MEDS: ADVANCED PROBIOTIC 1250 MG CAPSULE PO SCH (08:34)
[2022-03-09] MEDS: HEPARIN SOD 5,000 UNIT/0.5 ML VIAL SQ SCH ×2 (08:34→21:26)
[2022-03-09] MEDS: CLOPIDOGREL BISULFATE 75 MG TAB PO SCH (08:35)
[2022-03-09] MEDS: DUTASTERIDE PO SCH (08:35)
[2022-03-09] MEDS: INSULIN ASPART PER UNIT SC SCH ×4 (09:26→21:19)
--- NOTE | 2022-03-09 13:25 | Hospitalist Progress Note ---
Date of Service March 09, 2022 Assessment & Plan (1) Diabetic foot infection: (2) Diabetic foot ulcer associated with type 2 diabetes mellitus: (3) Osteomyelitis of right foot: (4) Peripheral arterial disease: (5) Stroke: (6) GERD (gastroesophageal reflux disease): Plan Diabetic foot infection x right No overt sepsis POA. 02/18: I&D right foot, partial excision of fifth ray right foot, delayed primary closure right foot wound. By Dr. Gianluca Jackson. 02/21: Right foot debridement, wound VAC application. By Dr. Gianluca Jackson. 02/25: Right leg arteriogram, lithotripsy of proximal popliteal artery, mechanical closure of left femoral artery. By Dr. Howard Ocampo. Conference Services Manager on board, wound VAC changes Thursday. 02/18 wound culture: Reviewed; await 02/24 pathology results. 02/18 pathology results suggestive of focal acute osteomyelitis in amputated right fifth toe. 02/17 blood culture: Negative 02/27: Amputation Right 4th Toe by Dr. Jackson 03/07: game tester placed new dressings. Per picture and documentation, wound bed is healing with some slough present. Vac in place Encouraged patient to reposition or ambulate to chair but prefers to remain supine Remained stable and awaiting approval and transfer to skilled care facility For right foot wound is looking better and better We will continue current antibiotic-awaiting placement Patient reports pain under control, ID evaluated 02/24, continue with daptomycin and ertapenem for 6 weeks from the date of his last surgery. Weekly CK on daptomycin. Hold statin Continue w/ probiotic. 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 Focal area of high-grade stenosis of the proximal inferior mesenteric artery. Multifocal stenosis within the bilateral lower extremity arterial systems. Distal right posterior tibial artery, distal left anterior tibial artery, and distal bilateral peroneal arteries are likely occluded. Vascular team on board, status post intervention on 02/25 [see above] No significant pain involving the extremities Other chronic medical conditions:History of CVA/HTN/HLD/DM2-->> continue home meds as and when able. Hold statin while on daptomycin. Patient with diabetic neuropathy and diabetic foot ulcers. Sliding scale while in hospital. A1c of 6.7 in August 2021. DVT prophylaxis:Heparin sq Full code PT/OT, CM to assist with DC planning. Will need SNF. stable. Awaiting placement Admission and Anticipated Discharge Date Admission Date: February 17, 2022 Subjective Seen in 353 in follow up for diabetic foot wounds and infection and PAD. Resting comfortably during exam. States he has been participating with PT and OT "a little bit". No new symptoms or events overnight. Wound vac in place. Denies fever, chills, lightheadedness, CP, SOB, N/V, abdominal pain, dysuria, diarrhea or constipation. game tester just placed new dressings. Awaiting placement. 03/08/2022 Patient was seen and examined in medical floor He has been stable and denies any symptoms Awaiting placement 03/09/2022 The patient was seen and examined in medical floor He has been stable without any significant symptoms He is right foot seems to be improving from infection Review of Systems Review of Systems: All systems reviewed and are unremarkable except as noted below Physical Exam Physical Exam: Lying in bed comfortably Constitutional: well developed, well nourished, + ill appearing and + obese Eyes: PERRL, conjunctivae normal, anicteric sclerae ENMT: external ear and nose normal, oropharynx normal Neck: trachea midline, no thyromegaly Respiratory: no respiratory distress Auscultation: lungs clear to auscultation bilaterally Cardiovascular: Rate/Rhythm: regular rate and regular rhythm; not tachycardic Heart Sounds: normal S1 and normal S2; no murmur Extremities: + edema (Trace edema bilaterally more on the right than the left) Gastrointestinal (Abdomen): Inspection/Auscultation: normal bowel sounds; abdomen not distended Percussion/Palpation: abdomen soft; abdomen nontender Musculoskeletal: Right foot is on wound VAC and surrounding area shows less inflammation Neurologic: normal touch/pain/proprioception (Except right foot) and moves all extremities; no focal motor deficits Psychiatric: A+Ox3, euthymic affect Lymphatic: no cervical or axillary lymphadenopathy Results & Data Results & Data ([facility]) Vital Signs (Past 12 Hours) Vital Signs Temp Pulse Resp BP Pulse Ox O2 Del Method 03/09/22 08:01 36.8 C 56 L 22 152/77 H 94 Room Air Laboratory Results Short CBC 11/13/22 Range/Units 06:41 WBC 9.74 (4.8-10.8) K/ul Hgb 12.6 L (14.0-18.0) g/dl Hct 40.0 L (40.1-51.0) % Plt Count 247 (130-400) K/uL BMP 03/09/22 06:41 Sodium 138 Potassium 3.7 Chloride 106 Carbon Dioxide 25 BUN 22 Creatinine 0.86 Glucose 137 H Calcium 9.4 Liver Function 03/09/22 Range/Units 06:41 Total Bilirubin 1.6 H (0.2-1.0) mg/dl AST 10 L (13-39) U/L ALT 6 L (7-52) U/L Alkaline Phosphatase 67 (34-104) U/L Albumin 3.5 (3.4-5.0) gm/dl Medications Administered Current Inpatient Medications Acetaminophen (Acetaminophen 325 Mg Tab) 650 mg PO Q4H PRN PRN Reason: pain/fever Stop: 03/19/22 23:26 Last Admin: 02/28/22 03:39 Dose: 650 mg Clopidogrel Bisulfate (Clopidogrel Bisulfate 75 Mg Tab) 75 mg PO QAM [facility] Stop: 03/22/22 08:59 Last Admin: 03/09/22 08:35 Dose: 75 mg Dextrose (Dextrose 50% 50 Ml Syringe) 25 - 50 ml IV UD PRN; Protocol PRN Reason: Hypoglycemia Protocol Stop: 03/19/22 23:26 Dutasteride (Dutasteride) 1 each PO DAILY [facility] Stop: 03/23/22 08:59 Last Admin: 03/09/22 08:35 Dose: 1 each Glucagon (Glucagon For Inj 1 Mg Vial) 1 mg SQ UD PRN; Protocol PRN Reason: Hypoglycemia Protocol Stop: 03/19/22 23:26 Glucose (Glucose 40% Gel 15 Gm Tube) 15 - 30 gm PO UD PRN; Protocol PRN Reason: Hypoglycemia Protocol Stop: 03/19/22 23:26 Glucose (Glucose 10 Tab/Tube) 4 - 8 tab PO UD PRN; Protocol PRN Reason: Hypoglycemia Treatment Stop: 03/19/22 23:26 Heparin Sodium (Porcine) (Heparin Sod 5,000 Unit/0.5 Ml Vial) 5,000 units SQ Q12 [facility] Stop: 03/21/22 22:59 Last Admin: 03/09/22 08:34 Dose: 5,000 units Promethazine HCl 12.5 mg/ (Sodium Chloride) 50.5 mls @ 202 mls/hr IV Q6H PRN PRN Reason: Nausea And Vomiting Stop: 03/19/22 21:53 Last Infusion: 02/27/22 11:16 Dose: Infused Daptomycin 475 mg/ Syringe 9.5 mls @ 4.75 mls/min IV Q24H [facility]; Protocol Stop: 04/03/22 10:59 Last Admin: 03/08/22 15:11 Dose: 4.75 mls/min Ertapenem 1,000 mg/ Syringe 10 mls @ 2 mls/min IV Q24H [facility] Stop: 04/07/22 14:59 Last Admin: 03/08/22 15:12 Dose: 2 mls/min Insulin Aspart (Insulin Aspart Per Unit) 0 units SC ACHS [facility] Stop: 03/30/22 07:29 Last Admin: 03/09/22 09:26 Dose: 5 units Insulin Glargine (Lantus Per Unit Charge) 15 units SQ HS [facility] Stop: 04/06/22 20:59 Last Admin: 03/08/22 21:08 Dose: 15 units Lactobacillus Acidophilus (Advanced Probiotic 1250 Mg Capsule) 2 cap PO DAILY [facility] Stop: 03/23/22 12:59 Last Admin: 03/09/22 08:34 Dose: 2 cap Lorazepam (Lorazepam 0.5 Mg Tab) 0.5 mg PO TID PRN PRN Reason: Anxiety Stop: 03/19/22 21:53 Metoprolol Tartrate (Metoprolol Tartrate 25 Mg Tab) 25 mg PO QAM [facility] Stop: 03/20/22 06:14 Last Admin: 03/09/22 08:33 Dose: 25 mg Miscellaneous (Carbohydrates For Hypoglycemia ) 15 - 30 gm PO UD PRN PRN Reason: Hypoglycemia Protocol Stop: 03/19/22 23:26 Olmesartan (Olmesartan Medoxomil 40 Mg Tab) 40 mg PO QAM [facility] Stop: 03/20/22 02:19 Last Admin: 03/09/22 08:33 Dose: 40 mg Oxycodone HCl (Oxycodone Hcl Ir 5 Mg Tab (Immediate Release)) 10 mg PO Q4H PRN PRN Reason: Pain Stop: 03/18/22 21:37 Last Admin: 03/04/22 21:51 Dose: 10 mg Pantoprazole Sodium (Pantoprazole 40 Mg Tab) 40 mg PO [facility] Stop: 03/20/22 08:59 Last Admin: 03/09/22 08:33 Dose: 40 mg
[2022-03-09] MEDS: DAPTOmycin 475 MG in SYRINGE 0 ML IV SCH (14:41)
[2022-03-09] MEDS: ERTAPENEM SODIUM 1,000 MG in SYRINGE 0 ML IV SCH (14:41)
[2022-03-09] MEDS: PROMETHAZINE HCL 12.5 MG in SODIUM CHLORIDE 0.9% 50 ML IV PRN (18:08)
[2022-03-09] MEDS: LANTUS PER UNIT CHARGE SQ SCH (21:15)
[2022-03-10] MEDS: INSULIN ASPART PER UNIT SC SCH ×4 (09:09→20:58)
[2022-03-10] MEDS: DUTASTERIDE PO SCH (09:13)
[2022-03-10] MEDS: OLMESARTAN MEDOXOMIL 40 MG TAB PO SCH (09:13)
[2022-03-10] MEDS: PANTOprazole 40 MG TAB PO SCH (09:13)
[2022-03-10] MEDS: HEPARIN SOD 5,000 UNIT/0.5 ML VIAL SQ SCH ×2 (09:14→20:58)
[2022-03-10] MEDS: CLOPIDOGREL BISULFATE 75 MG TAB PO SCH (09:14)
[2022-03-10] MEDS: METOPROLOL TARTRATE 25 MG TAB PO SCH (09:15)
[2022-03-10] MEDS: ADVANCED PROBIOTIC 1250 MG CAPSULE PO SCH (09:16)
[2022-03-10] MEDS: DAPTOmycin 475 MG in SYRINGE 0 ML IV SCH (14:17)
--- NOTE | 2022-03-10 16:41 | Hospitalist Progress Note ---
Date of Service March 10, 2022 Assessment & Plan (1) Diabetic foot infection: (2) Diabetic foot ulcer associated with type 2 diabetes mellitus: (3) Osteomyelitis of right foot: (4) Peripheral arterial disease: (5) Stroke: (6) GERD (gastroesophageal reflux disease): Plan Diabetic foot infection x right No overt sepsis POA. 02/18: I&D right foot, partial excision of fifth ray right foot, delayed primary closure right foot wound. By Dr. Gianluca Jackson. 02/21: Right foot debridement, wound VAC application. By Dr. Gianluca Jackson. 02/25: Right leg arteriogram, lithotripsy of proximal popliteal artery, mechanical closure of left femoral artery. By Dr. Howard Ocampo. Rate Examiner on board, wound VAC changes Thursday. 02/18 wound culture: Reviewed; await 02/24 pathology results. 02/18 pathology results suggestive of focal acute osteomyelitis in amputated right fifth toe. 02/17 blood culture: Negative 02/27: Amputation Right 4th Toe by Dr. Jackson 03/07: relationship assoc placed new dressings. Per picture and documentation, wound bed is healing with some slough present. Vac in place Encouraged patient to reposition or ambulate to chair but prefers to remain supine Remained stable and awaiting approval and transfer to skilled care facility For right foot wound is looking better and better We will continue current antibiotic-awaiting placement No issues at this time Patient reports pain under control, ID evaluated 02/24, continue with daptomycin and ertapenem for 6 weeks from the date of his last surgery. Weekly CK on daptomycin. Hold statin Continue w/ probiotic. 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 Focal area of high-grade stenosis of the proximal inferior mesenteric artery. Multifocal stenosis within the bilateral lower extremity arterial systems. Distal right posterior tibial artery, distal left anterior tibial artery, and distal bilateral peroneal arteries are likely occluded. Vascular team on board, status post intervention on 02/25 [see above] No significant pain involving the extremities Other chronic medical conditions:History of CVA/HTN/HLD/DM2-->> continue home meds as and when able. Hold statin while on daptomycin. Patient with diabetic neuropathy and diabetic foot ulcers. Sliding scale while in hospital. A1c of 6.7 in August 2021. DVT prophylaxis:Heparin sq Full code PT/OT, CM to assist with DC planning. Will need SNF. stable. Awaiting placement Admission and Anticipated Discharge Date Admission Date: February 17, 2022 Subjective Seen in 353 in follow up for diabetic foot wounds and infection and PAD. Resting comfortably during exam. States he has been participating with PT and OT "a little bit". No new symptoms or events overnight. Wound vac in place. Denies fever, chills, lightheadedness, CP, SOB, N/V, abdominal pain, dysuria, diarrhea or constipation. relationship assoc just placed new dressings. Awaiting placement. 03/08/2022 Patient was seen and examined in medical floor He has been stable and denies any symptoms Awaiting placement 03/09/2022 The patient was seen and examined in medical floor He has been stable without any significant symptoms He is right foot seems to be improving from infection 03/10/2022 Patient was seen and examined in medical floor He has been stable and denies any significant symptoms The right foot seems to be improving Denies any fever and or chills Review of Systems Review of Systems: All systems reviewed and are unremarkable except as noted below Physical Exam Physical Exam: Lying in bed comfortably Constitutional: well developed, well nourished, + ill appearing and + obese Eyes: PERRL, conjunctivae normal, anicteric sclerae ENMT: external ear and nose normal, oropharynx normal Neck: trachea midline, no thyromegaly Respiratory: no respiratory distress Auscultation: lungs clear to auscultation bilaterally Cardiovascular: Rate/Rhythm: regular rate and regular rhythm; not tachycardic Heart Sounds: normal S1 and normal S2; no murmur Extremities: + edema (Trace edema bilaterally more on the right than the left) Gastrointestinal (Abdomen): Inspection/Auscultation: normal bowel sounds; abdomen not distended Percussion/Palpation: abdomen soft; abdomen nontender Neurologic: normal touch/pain/proprioception (Except right foot) and moves all extremities; no focal motor deficits Psychiatric: A+Ox3, euthymic affect Lymphatic: no cervical or axillary lymphadenopathy Results & Data Results & Data ([facility]) Vital Signs (Past 12 Hours) Vital Signs Temp Pulse Resp BP Pulse Ox O2 Del Method 03/10/22 08:04 37.2 C 66 16 142/70 H 94 Room Air Medications Administered Current Inpatient Medications Acetaminophen (Acetaminophen 325 Mg Tab) 650 mg PO Q4H PRN PRN Reason: pain/fever Stop: 03/19/22 23:26 Last Admin: 02/28/22 03:39 Dose: 650 mg Clopidogrel Bisulfate (Clopidogrel Bisulfate 75 Mg Tab) 75 mg PO QAM [facility]ANG Stop: 03/22/22 08:59 Last Admin: 03/10/22 09:14 Dose: 75 mg Dextrose (Dextrose 50% 50 Ml Syringe) 25 - 50 ml IV UD PRN; Protocol PRN Reason: Hypoglycemia Protocol Stop: 03/19/22 23:26 Dutasteride (Dutasteride) 1 each PO DAILY [facility] Stop: 03/23/22 08:59 Last Admin: 03/10/22 09:13 Dose: 1 each Glucagon (Glucagon For Inj 1 Mg Vial) 1 mg SQ UD PRN; Protocol PRN Reason: Hypoglycemia Protocol Stop: 03/19/22 23:26 Glucose (Glucose 40% Gel 15 Gm Tube) 15 - 30 gm PO UD PRN; Protocol PRN Reason: Hypoglycemia Protocol Stop: 03/19/22 23:26 Glucose (Glucose 10 Tab/Tube) 4 - 8 tab PO UD PRN; Protocol PRN Reason: Hypoglycemia Treatment Stop: 03/19/22 23:26 Heparin Sodium (Porcine) (Heparin Sod 5,000 Unit/0.5 Ml Vial) 5,000 units SQ Q12 [facility]ANG Stop: 03/21/22 22:59 Last Admin: 03/10/22 09:14 Dose: 5,000 units Promethazine HCl 12.5 mg/ (Sodium Chloride) 50.5 mls @ 202 mls/hr IV Q6H PRN PRN Reason: Nausea And Vomiting Stop: 03/19/22 21:53 Last Infusion: 03/09/22 18:42 Dose: Infused Daptomycin 475 mg/ Syringe 9.5 mls @ 4.75 mls/min IV Q24H [facility]ANG; Protocol Stop: 04/03/22 10:59 Last Admin: 03/10/22 14:17 Dose: 4.75 mls/min Ertapenem 1,000 mg/ Syringe 10 mls @ 2 mls/min IV Q24H [facility] Stop: 04/07/22 14:59 Last Admin: 03/09/22 14:41 Dose: 2 mls/min Insulin Aspart (Insulin Aspart Per Unit) 0 units SC ACHS [facility] Stop: 03/30/22 07:29 Last Admin: 03/10/22 13:04 Dose: 2 units Insulin Glargine (Lantus Per Unit Charge) 15 units SQ HS [facility] Stop: 04/06/22 20:59 Last Admin: 03/09/22 21:15 Dose: 15 units Lactobacillus Acidophilus (Advanced Probiotic 1250 Mg Capsule) 2 cap PO DAILY [facility] Stop: 03/23/22 12:59 Last Admin: 03/10/22 09:16 Dose: 2 cap Lorazepam (Lorazepam 0.5 Mg Tab) 0.5 mg PO TID PRN PRN Reason: Anxiety Stop: 03/19/22 21:53 Metoprolol Tartrate (Metoprolol Tartrate 25 Mg Tab) 25 mg PO QAM [facility] Stop: 03/20/22 06:14 Last Admin: 03/10/22 09:15 Dose: 25 mg Miscellaneous (Carbohydrates For Hypoglycemia ) 15 - 30 gm PO UD PRN PRN Reason: Hypoglycemia Protocol Stop: 03/19/22 23:26 Olmesartan (Olmesartan Medoxomil 40 Mg Tab) 40 mg PO QAM [facility] Stop: 03/20/22 02:19 Last Admin: 03/10/22 09:13 Dose: 40 mg Oxycodone HCl (Oxycodone Hcl Ir 5 Mg Tab (Immediate Release)) 10 mg PO Q4H PRN PRN Reason: Pain Stop: 03/18/22 21:37 Last Admin: 03/04/22 21:51 Dose: 10 mg Pantoprazole Sodium (Pantoprazole 40 Mg Tab) 40 mg PO QAM [facility] Stop: 03/20/22 08:59 Last Admin: 03/10/22 09:13 Dose: 40 mg
[2022-03-10] MEDS: ERTAPENEM SODIUM 1,000 MG in SYRINGE 0 ML IV SCH (16:53)
[2022-03-10] MEDS: LANTUS PER UNIT CHARGE SQ SCH (20:58)
[2022-03-11] MEDS: INSULIN ASPART PER UNIT SC SCH ×4 (08:43→20:51)
[2022-03-11] MEDS: DUTASTERIDE PO SCH (08:53)
[2022-03-11] MEDS: HEPARIN SOD 5,000 UNIT/0.5 ML VIAL SQ SCH ×2 (08:53→20:58)
[2022-03-11] MEDS: PANTOprazole 40 MG TAB PO SCH (08:55)
[2022-03-11] MEDS: ADVANCED PROBIOTIC 1250 MG CAPSULE PO SCH (08:55)
[2022-03-11] MEDS: CLOPIDOGREL BISULFATE 75 MG TAB PO SCH (08:56)
[2022-03-11] MEDS: METOPROLOL TARTRATE 25 MG TAB PO SCH (08:56)
[2022-03-11] MEDS: MENTHOL-ZINC OXIDE 360 APPLN/120 GM TUBE EXT SCH ×2 (08:57→21:18)
[2022-03-11] MEDS: OLMESARTAN MEDOXOMIL 40 MG TAB PO SCH (08:57)
[2022-03-11] MEDS: ERTAPENEM SODIUM 1,000 MG in SYRINGE 0 ML IV SCH (15:06)
[2022-03-11] MEDS: DAPTOmycin 475 MG in SYRINGE 0 ML IV SCH (15:06)
--- NOTE | 2022-03-11 15:27 | Hospitalist Progress Note ---
Date of Service March 11, 2022 Assessment & Plan (1) Diabetic foot infection: (2) Diabetic foot ulcer associated with type 2 diabetes mellitus: (3) Osteomyelitis of right foot: (4) Peripheral arterial disease: (5) Stroke: (6) GERD (gastroesophageal reflux disease): Plan Diabetic foot infection x right No overt sepsis POA. 02/18: I&D right foot, partial excision of fifth ray right foot, delayed primary closure right foot wound. By Dr. Gianluca Jackson. 02/21: Right foot debridement, wound VAC application. By Dr. Gianluca Jackson. 02/25: Right leg arteriogram, lithotripsy of proximal popliteal artery, mechanical closure of left femoral artery. By Dr. Howard Ocampo. Server Engineer on board, wound VAC changes Thursday. 02/18 wound culture: Reviewed; await 02/24 pathology results. 02/18 pathology results suggestive of focal acute osteomyelitis in amputated right fifth toe. 02/17 blood culture: Negative 02/27: Amputation Right 4th Toe by Dr. Jackson 03/07: bathhouse keeper placed new dressings. Per picture and documentation, wound bed is healing with some slough present. Vac in place Encouraged patient to reposition or ambulate to chair but prefers to remain supine Remained stable and awaiting approval and transfer to skilled care facility Overall improvement of the right foot wound No signs and or symptoms of ongoing infection or worsening of infection We will continue current management and the patient has been waiting to be placed Patient reports pain under control, ID evaluated 02/24, continue with daptomycin and ertapenem for 6 weeks from the date of his last surgery. Weekly CK on daptomycin. Hold statin Continue w/ probiotic. 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 Focal area of high-grade stenosis of the proximal inferior mesenteric artery. Multifocal stenosis within the bilateral lower extremity arterial systems. Distal right posterior tibial artery, distal left anterior tibial artery, and distal bilateral peroneal arteries are likely occluded. Vascular team on board, status post intervention on 02/25 [see above] No significant pain involving the extremities Other chronic medical conditions:History of CVA/HTN/HLD/DM2-->> continue home meds as and when able. Hold statin while on daptomycin. Patient with diabetic neuropathy and diabetic foot ulcers. Sliding scale while in hospital. A1c of 6.7 in August 2021. DVT prophylaxis:Heparin sq Full code PT/OT, CM to assist with DC planning. Will need SNF. stable. Awaiting placement Admission and Anticipated Discharge Date Admission Date: February 17, 2022 Subjective Seen in 353 in follow up for diabetic foot wounds and infection and PAD. Resting comfortably during exam. States he has been participating with PT and OT "a little bit". No new symptoms or events overnight. Wound vac in place. Denies fever, chills, lightheadedness, CP, SOB, N/V, abdominal pain, dysuria, diarrhea or constipation. bathhouse keeper just placed new dressings. Awaiting placement. 03/08/2022 Patient was seen and examined in medical floor He has been stable and denies any symptoms Awaiting placement 03/09/2022 The patient was seen and examined in medical floor He has been stable without any significant symptoms He is right foot seems to be improving from infection 03/10/2022 Patient was seen and examined in medical floor He has been stable and denies any significant symptoms The right foot seems to be improving Denies any fever and or chills 03/11/2022 The patient was seen and examined in medical floor He has been stable and denies any symptoms Right foot seems to be improving Strongly advised to keep it elevated over a pillow while sleeping or lying down Review of Systems Review of Systems: All systems reviewed and are unremarkable except as noted below Physical Exam Physical Exam: Lying in bed comfortably Constitutional: well developed, well nourished, + ill appearing and + obese Eyes: PERRL, conjunctivae normal, anicteric sclerae ENMT: external ear and nose normal, oropharynx normal Neck: trachea midline, no thyromegaly Respiratory: no respiratory distress Auscultation: lungs clear to auscultation bilaterally Cardiovascular: Rate/Rhythm: regular rate and regular rhythm; not tachycardic Heart Sounds: normal S1 and normal S2; no murmur Extremities: + edema (Trace edema bilaterally more on the right than the left) Gastrointestinal (Abdomen): Inspection/Auscultation: normal bowel sounds; abdomen not distended Percussion/Palpation: abdomen soft; abdomen nontender Musculoskeletal: No acute arthritis involving any joint Neurologic: normal touch/pain/proprioception (Except right foot) and moves all extremities; no focal motor deficits Psychiatric: A+Ox3, euthymic affect Lymphatic: no cervical or axillary lymphadenopathy Results & Data Results & Data ([facility]) Vital Signs (Past 12 Hours) Vital Signs Temp Pulse Resp BP Pulse Ox O2 Del Method 03/11/22 15:07 37.3 C 59 L 16 151/70 H 96 Room Air 03/11/22 07:34 37.0 C 64 16 166/75 H 96 Room Air Medications Administered Current Inpatient Medications Acetaminophen (Acetaminophen 325 Mg Tab) 650 mg PO Q4H PRN PRN Reason: pain/fever Stop: 03/19/22 23:26 Last Admin: 02/28/22 03:39 Dose: 650 mg Calamine/Phenol (Menthol-Zinc Oxide 360 Appln/120 Gm Tube) 1 appln EXT BID HOANG Stop: 04/10/22 08:59 Last Admin: 03/11/22 08:57 Dose: 1 appln Clopidogrel Bisulfate (Clopidogrel Bisulfate 75 Mg Tab) 75 mg PO QAM [facility] Stop: 03/22/22 08:59 Last Admin: 03/11/22 08:56 Dose: 75 mg Dextrose (Dextrose 50% 50 Ml Syringe) 25 - 50 ml IV UD PRN; Protocol PRN Reason: Hypoglycemia Protocol Stop: 03/19/22 23:26 Dutasteride (Dutasteride) 1 each PO DAILY [facility] Stop: 03/23/22 08:59 Last Admin: 03/11/22 08:53 Dose: 1 each Glucagon (Glucagon For Inj 1 Mg Vial) 1 mg SQ UD PRN; Protocol PRN Reason: Hypoglycemia Protocol Stop: 03/19/22 23:26 Glucose (Glucose 40% Gel 15 Gm Tube) 15 - 30 gm PO UD PRN; Protocol PRN Reason: Hypoglycemia Protocol Stop: 03/19/22 23:26 Glucose (Glucose 10 Tab/Tube) 4 - 8 tab PO UD PRN; Protocol PRN Reason: Hypoglycemia Treatment Stop: 03/19/22 23:26 Heparin Sodium (Porcine) (Heparin Sod 5,000 Unit/0.5 Ml Vial) 5,000 units SQ Q12 [facility] Stop: 03/21/22 22:59 Last Admin: 03/11/22 08:53 Dose: 5,000 units Promethazine HCl 12.5 mg/ (Sodium Chloride) 50.5 mls @ 202 mls/hr IV Q6H PRN PRN Reason: Nausea And Vomiting Stop: 03/19/22 21:53 Last Infusion: 03/09/22 18:42 Dose: Infused Daptomycin 475 mg/ Syringe 9.5 mls @ 4.75 mls/min IV Q24H [facility]; Protocol Stop: 04/03/22 10:59 Last Admin: 03/11/22 15:06 Dose: 4.75 mls/min Ertapenem 1,000 mg/ Syringe 10 mls @ 2 mls/min IV Q24H [facility] Stop: 04/07/22 14:59 Last Admin: 03/11/22 15:06 Dose: 2 mls/min Insulin Aspart (Insulin Aspart Per Unit) 0 units SC ACHS [facility] Stop: 03/30/22 07:29 Last Admin: 03/11/22 12:58 Dose: 5 units Insulin Glargine (Lantus Per Unit Charge) 15 units SQ HS [facility] Stop: 04/06/22 20:59 Last Admin: 03/10/22 20:58 Dose: 15 units Lactobacillus Acidophilus (Advanced Probiotic 1250 Mg Capsule) 2 cap PO DAILY [facility] Stop: 03/23/22 12:59 Last Admin: 03/11/22 08:55 Dose: 2 cap Lorazepam (Lorazepam 0.5 Mg Tab) 0.5 mg PO TID PRN PRN Reason: Anxiety Stop: 03/19/22 21:53 Metoprolol Tartrate (Metoprolol Tartrate 25 Mg Tab) 25 mg PO QAM [facility] Stop: 03/20/22 06:14 Last Admin: 03/11/22 08:56 Dose: 25 mg Miscellaneous (Carbohydrates For Hypoglycemia ) 15 - 30 gm PO UD PRN PRN Reason: Hypoglycemia Protocol Stop: 03/19/22 23:26 Olmesartan (Olmesartan Medoxomil 40 Mg Tab) 40 mg PO QAM [facility] Stop: 03/20/22 02:19 Last Admin: 03/11/22 08:57 Dose: 40 mg Oxycodone HCl (Oxycodone Hcl Ir 5 Mg Tab (Immediate Release)) 10 mg PO Q4H PRN PRN Reason: Pain Stop: 03/18/22 21:37 Last Admin: 03/04/22 21:51 Dose: 10 mg Pantoprazole Sodium (Pantoprazole 40 Mg Tab) [facility] [place]: 03/20/22 08:59 Last Admin: 03/11/22 08:55 Dose: 40 mg
[2022-03-11] MEDS: oxyCODONE HCL IR 5 MG TAB (IMMEDIATE RELEASE) PO PRN (19:19)
[2022-03-11] MEDS: LANTUS PER UNIT CHARGE SQ SCH (20:52)
[2022-03-12 08:11] LABS: Basophils # (auto) 0.03 K/uL (0-0.2); Basophils % (auto) 0.3 %; Eosinophils % (auto) 5.9 %; Hematocrit (blood only) 37.3 % (40.1-51.0); Immature Granulocytes # (auto) 0.03 K/uL (0.00-0.02); Immature Granulocytes % (auto) 0.3 %; Lymphocytes # (auto) 1.04 K/uL (1.2-3.4); Lymphocytes % (auto) 10.2 %; Mean Corpuscular Hemoglobin 27.8 pg (25.0-34.0); Mean Corpuscular Hgb Conc 32.2 g/dL (32.0-36.0); Mean Corpuscular Volume 86.5 fL (80.0-100.0); Mean Platelet Volume 9.6 fL (9.4-12.4); Monocytes # (auto) 0.52 K/uL (0.24-0.82); Monocytes % (auto) 5.1 %; Neutrophils # (auto) 8.01 K/uL (1.4-6.5); Neutrophils % (auto) 78.2 %; Platelet Count 213 K/uL (130-400); RDW Coefficient of Variation 13.9 % (11.5-14.5); Red Blood Count 4.31 M/uL (4.63-6.08); White Blood Count 10.23 K/ul (4.8-10.8)
[2022-03-12 08:35] LABS: Albumin Globulin Ratio 0.9 (0.9-2); Albumin Level 3.4 gm/dl (3.4-5.0); Bilirubin,Total 1.7 mg/dl (0.2-1.0); Calcium 9.3 mg/dl (8.5-10.1); Creatinine Clr Calc Pharmacy 103.6 ml/min; Est GFR (African American) 111.1 ml/min; Est GFR (Non-African American) 95.8 ml/min; Globulin 3.8 gm/dl (2.5-4.0); Potassium 3.7 mmol/L (3.5-5.1); Total Protein 7.2 gm/dl (6.0-8.3)
[2022-03-12] MEDS: INSULIN ASPART PER UNIT SC SCH ×4 (08:43→21:30)
[2022-03-12] MEDS: DUTASTERIDE PO SCH (08:53)
[2022-03-12] MEDS: METOPROLOL TARTRATE 25 MG TAB PO SCH (08:53)
[2022-03-12] MEDS: HEPARIN SOD 5,000 UNIT/0.5 ML VIAL SQ SCH ×2 (08:54→20:13)
[2022-03-12] MEDS: OLMESARTAN MEDOXOMIL 40 MG TAB PO SCH (08:56)
[2022-03-12] MEDS: PANTOprazole 40 MG TAB PO SCH (08:57)
[2022-03-12] MEDS: CLOPIDOGREL BISULFATE 75 MG TAB PO SCH (08:57)
[2022-03-12] MEDS: ADVANCED PROBIOTIC 1250 MG CAPSULE PO SCH (08:58)
[2022-03-12] MEDS: MENTHOL-ZINC OXIDE 360 APPLN/120 GM TUBE EXT SCH ×2 (08:58→20:13)
[2022-03-12] MEDS: DAPTOmycin 475 MG in SYRINGE 0 ML IV SCH (15:21)
[2022-03-12] MEDS: ERTAPENEM SODIUM 1,000 MG in SYRINGE 0 ML IV SCH (15:21)
[2022-03-12] MEDS ORDERED: VANCOMYCIN CONSULT ACTIVE PRN (17:43)
[2022-03-12] MEDS: LANTUS PER UNIT CHARGE SQ SCH (21:35)
[2022-03-13 07:42] LABS: BUN Creatinine Ratio 23.8 (10-20); Creatinine Clr Calc Pharmacy 108.8 ml/min; Est GFR (African American) 113.3 ml/min; Est GFR (Non-African American) 97.8 ml/min; Potassium 3.6 mmol/L (3.5-5.1)
[2022-03-13] MEDS: CLOPIDOGREL BISULFATE 75 MG TAB PO SCH (08:25)
[2022-03-13] MEDS: HEPARIN SOD 5,000 UNIT/0.5 ML VIAL SQ SCH ×2 (08:26→21:20)
[2022-03-13] MEDS: METOPROLOL TARTRATE 25 MG TAB PO SCH (08:26)
[2022-03-13] MEDS: PANTOprazole 40 MG TAB PO SCH (08:27)
[2022-03-13] MEDS: MENTHOL-ZINC OXIDE 360 APPLN/120 GM TUBE EXT SCH ×2 (08:27→21:20)
[2022-03-13] MEDS: DUTASTERIDE PO SCH (08:27)
[2022-03-13] MEDS: OLMESARTAN MEDOXOMIL 40 MG TAB PO SCH (08:27)
[2022-03-13] MEDS: ADVANCED PROBIOTIC 1250 MG CAPSULE PO SCH (08:27)
[2022-03-13] MEDS ORDERED: VANCOMYCIN HCL 2,000 MG in SODIUM CHLORIDE 0.9% 500 ML IV ONE (09:00)
[2022-03-13] MEDS: INSULIN ASPART PER UNIT SC SCH ×4 (09:50→20:56)
--- NOTE | 2022-03-13 11:35 | Pharmacy Report ---
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 Patient being treated with daptomycin/ertapenem. D/c daptomycin and starting vancomycin d/t difficulty finding placement with daptomycin. Plan Vancomycin * Loading dose: 2000 mg IV x 1 * Maintenance dose: 1500 mg IV every 12 hours * Regimen is predicted to achieve target AUC/GRACIE of 400-600 mg/L.hr * Random scheduled for 03/15 AM Pharmacy will continue to follow and will adjust dose/frequency as necessary. Thank you. Pharmacy has transitioned to AUC monitoring for vancomycin. AUC/GRACIE is the preferred PK/PD target and is associated with decreased risk of nephrotoxicity compared to traditional trough targets.
--- NOTE | 2022-03-13 16:19 | Hospitalist Progress Note ---
Date of Service March 13, 2022 Assessment & Plan (1) Diabetic foot infection: (2) Diabetic foot ulcer associated with type 2 diabetes mellitus: (3) Osteomyelitis of right foot: (4) Peripheral arterial disease: (5) Stroke: (6) GERD (gastroesophageal reflux disease): Plan per Dr. Campbell's notes with addendum: Diabetic foot infection x right No overt sepsis POA. 02/18: I&D right foot, partial excision of fifth ray right foot, delayed primary closure right foot wound. By Dr. Gianluca Jackson. 02/21: Right foot debridement, wound VAC application. By Dr. Gianluca Jackson. 02/25: Right leg arteriogram, lithotripsy of proximal popliteal artery, electro mechanical engineer al closure of left femoral artery. By Dr. Howard Ocampo. Lard Renderer on board, wound VAC changes Thursday. 02/18 wound culture: Reviewed; await 02/24 pathology results. 02/18 pathology results suggestive of focal acute osteomyelitis in amputated right fifth toe. 02/17 blood culture: Negative 02/27: Amputation Right 4th Toe by Dr. Jackson 03/07: therapeutic recreation specialist placed new dressings. Per picture and documentation, wound bed is healing with some slough present. Vac in place Patient reports pain under control, ID evaluated 02/24, continue with daptomycin and ertapenem for 6 weeks from the date of his last surgery. Weekly CK on daptomycin. 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 Focal area of high-grade stenosis of the proximal inferior mesenteric artery. Multifocal stenosis within the bilateral lower extremity arterial systems. Distal right posterior tibial artery, distal left anterior tibial artery, and distal bilateral peroneal arteries are likely occluded. Vascular team on board, status post intervention on 02/25 [see above] No significant pain involving the extremities Other chronic medical conditions:History of CVA/HTN/HLD/DM2-->> continue home meds as and when able. Hold statin while on daptomycin. Patient with diabetic neuropathy and diabetic foot ulcers. Sliding scale while in hospital. A1c of 6.7 in August 2021. DVT prophylaxis:Heparin sq Full code PT/OT, CM to assist with DC planning. Will need SNF. stable. Awaiting placement Admission and Anticipated Discharge Date Admission Date: February 17, 2022 Subjective ff up for DM foot infection, etc seen resting in bed, comfortable states he feels ok overall minimal pain on the R foot no chest pain, dyspnea, palpitations, dizziness no fever/chills no abdominal pain, diarrhea no other symptoms Review of Systems Review of Systems: all noted and negative except for above Physical Exam Physical Exam: General- oriented x 3, not in distress, speaks in sentences with no effort or accessory muscle use Eyes- anicteric Neck- no JVD Lungs- clear breath sounds bilaterally, no crackles Heart- normal rate, regular rhythm; no murmurs Abdomen- normal bowel sounds, nondistended, soft, nontender Extremities- no pretibial edema, no calf tenderness R foot- dressing in place, wound vac in place Neuro- alert, oriented x 3; no gross focal neurologic deficits Skin- warm & dry Results & Data Results & Data ([facility]) Vital Signs (Past 12 Hours) Vital Signs Temp Pulse Resp BP Pulse Ox O2 Del Method 03/13/22 14:46 36.5 C 60 16 119/60 95 Room Air 03/13/22 07:18 36.8 C 53 L 16 150/79 H 95 Room Air all noted and reviewed including below
[2022-03-13] MEDS: ERTAPENEM SODIUM 1,000 MG in SYRINGE 0 ML IV SCH (17:29)
[2022-03-13] MEDS: VANCOMYCIN HCL 1,500 MG in SODIUM CHLORIDE 0.9% 500 ML IV SCH (21:20)
[2022-03-13] MEDS: LANTUS PER UNIT CHARGE SQ SCH (21:20)
[2022-03-14] MEDS: INSULIN ASPART PER UNIT SC SCH ×4 (08:54→20:57)
[2022-03-14] MEDS: METOPROLOL TARTRATE 25 MG TAB PO SCH (08:56)
[2022-03-14] MEDS: DUTASTERIDE PO SCH (08:56)
[2022-03-14] MEDS: HEPARIN SOD 5,000 UNIT/0.5 ML VIAL SQ SCH ×2 (08:57→20:53)
[2022-03-14] MEDS: PANTOprazole 40 MG TAB PO SCH (09:03)
[2022-03-14] MEDS: ADVANCED PROBIOTIC 1250 MG CAPSULE PO SCH (09:03)
[2022-03-14] MEDS: OLMESARTAN MEDOXOMIL 40 MG TAB PO SCH (09:03)
[2022-03-14] MEDS: CLOPIDOGREL BISULFATE 75 MG TAB PO SCH (09:03)
[2022-03-14] MEDS: MENTHOL-ZINC OXIDE 360 APPLN/120 GM TUBE EXT SCH ×2 (09:05→20:59)
[2022-03-14] MEDS: VANCOMYCIN HCL 1,500 MG in SODIUM CHLORIDE 0.9% 500 ML IV SCH ×2 (09:05→20:53)
--- NOTE | 2022-03-14 12:57 | Orthopedic Progress Note ---
Date of Service March 14, 2022 Assessment & Plan (1) Diabetic foot ulcer associated with type 2 diabetes mellitus: Plan: Patient seen, evaluated, and treated. Patient awaiting granulation tissue formation over wound prior to Skin graft. Surgery may be done as out Patient. Patient is weight bearing to right heel as tolerated in off loading surgical shoe. Surgical Shoe ordered. Will continue to follow while in house. Thank you for involving me in Patient's care. Admission and Anticipated Discharge Date Admission Date: February 17, 2022 Subjective Patient status post left foot surgical care. He is utilizing right Wound Vac. Review of Systems Review of Systems: All systems reviewed & are unremarkable except as noted in HPI & below Physical Exam Physical Exam: Dressing intact. Wound vac intact and running. Results & Data ([facility]) Vital Signs (Past 12 Hours) Vital Signs Temp Pulse Resp BP Pulse Ox O2 Del Method 03/14/22 07:55 36.6 C 58 L 19 172/81 H 97 Room Air 03/14/22 07:43 Room Air
--- NOTE | 2022-03-14 15:48 | Hospitalist Progress Note ---
Date of Service March 14, 2022 Assessment & Plan (1) Diabetic foot infection: (2) Diabetic foot ulcer associated with type 2 diabetes mellitus: (3) Osteomyelitis of right foot: (4) Peripheral arterial disease: (5) Stroke: (6) GERD (gastroesophageal reflux disease): Plan per Dr. Campbell's notes with addendum: Diabetic foot infection x right No overt sepsis POA. 02/18: I&D right foot, partial excision of fifth ray right foot, delayed primary closure right foot wound. By Dr. Gianluca Jackson. 02/21: Right foot debridement, wound VAC application. By Dr. Gianluca Jackson. 02/25: Right leg arteriogram, lithotripsy of proximal popliteal artery, mechanics handyman al closure of left femoral artery. By Dr. Howard Ocampo. Rehabilitation Teacher on board, wound VAC changes Thursday. 02/18 wound culture: Reviewed; await 02/24 pathology results. 02/18 pathology results suggestive of focal acute osteomyelitis in amputated right fifth toe. 02/17 blood culture: Negative 02/27: Amputation Right 4th Toe by Dr. Jackson 03/07: distributor of directories placed new dressings. Per picture and documentation, wound bed is healing with some slough present. Vac in place Patient reports pain under control, ID evaluated 02/24, continue with daptomycin and ertapenem for 6 weeks from the date of his last surgery. Weekly CK on daptomycin. 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 Focal area of high-grade stenosis of the proximal inferior mesenteric artery. Multifocal stenosis within the bilateral lower extremity arterial systems. Distal right posterior tibial artery, distal left anterior tibial artery, and distal bilateral peroneal arteries are likely occluded. Vascular team on board, status post intervention on 02/25 [see above] No significant pain involving the extremities Other chronic medical conditions:History of CVA/HTN/HLD/DM2-->> continue home meds as and when able. Hold statin while on daptomycin. Patient with diabetic neuropathy and diabetic foot ulcers. Sliding scale while in hospital. A1c of 6.7 in August 2021. DVT prophylaxis:Heparin sq Full code PT/OT, CM to assist with DC planning. Will need SNF. stable. Awaiting placement plan of care discussed with patient in detail and at length all questions answered he is understanding, agreeable, comfortable with the plan of care Admission and Anticipated Discharge Date Admission Date: February 17, 2022 Subjective Follow-up for diabetic foot infection, etc. Seen resting in bed, comfortable, not in distress Wound care nurse just finished redressing patient's foot States he feels fine overall Denies pain in the right foot today no chest pain, dyspnea, palpitations, dizziness No diarrhea, no abdominal pain No other symptom Review of Systems Review of Systems: all noted and negative except for above Physical Exam Physical Exam: General- oriented x 3, not in distress, speaks in sentences with no effort or accessory muscle use Eyes- anicteric Neck- no JVD Lungs- clear breath sounds bilaterally, no crackles or wheezing Heart- normal rate, regular rhythm; no murmurs Abdomen- normal bowel sounds, nondistended, soft, nontender Extremities- no pretibial edema, no calf tenderness Right lower extremity-dressing in place, wound VAC in place, minimal erythema surrounding the wound VAC area Neuro- alert, oriented x 3; no gross focal neurologic deficits Skin- warm & dry Results & Data Results & Data ([facility]) Vital Signs (Past 12 Hours) Vital Signs Temp Pulse Pulse Resp BP Pulse Ox O2 Del Method 03/14/22 15:30 36.3 C L 57 L 18 161/73 H 96 Room Air 03/14/22 07:55 36.6 C 58 L 19 172/81 H 97 Room Air 03/14/22 07:43 Room Air all noted and reviewed including below
[2022-03-14] MEDS: ERTAPENEM SODIUM 1,000 MG in SYRINGE 0 ML IV SCH (16:06)
[2022-03-14] MEDS: LANTUS PER UNIT CHARGE SQ SCH (20:57)
[2022-03-14] MEDS: ROSUVASTATIN CALCIUM 10 MG TAB PO SCH (20:58)
[2022-03-15] MEDS: HEPARIN SOD 5,000 UNIT/0.5 ML VIAL SQ SCH ×2 (08:47→21:10)
[2022-03-15] MEDS: METOPROLOL TARTRATE 25 MG TAB PO SCH (08:48)
[2022-03-15] MEDS: ADVANCED PROBIOTIC 1250 MG CAPSULE PO SCH (08:48)
[2022-03-15] MEDS: DUTASTERIDE PO SCH (08:48)
[2022-03-15] MEDS: OLMESARTAN MEDOXOMIL 40 MG TAB PO SCH (08:49)
[2022-03-15] MEDS: PANTOprazole 40 MG TAB PO SCH (08:49)
[2022-03-15] MEDS: CLOPIDOGREL BISULFATE 75 MG TAB PO SCH (08:49)
[2022-03-15] MEDS: MENTHOL-ZINC OXIDE 360 APPLN/120 GM TUBE EXT SCH ×2 (08:50→21:12)
[2022-03-15] MEDS: INSULIN ASPART PER UNIT SC SCH ×4 (08:52→21:39)
[2022-03-15 08:56] LABS: Creatinine Clr Calc Pharmacy 122.6 ml/min; Est GFR (Non-African American) 102.7 ml/min
[2022-03-15] MEDS: VANCOMYCIN HCL 1,500 MG in SODIUM CHLORIDE 0.9% 500 ML IV SCH ×2 (09:27→21:10)
--- NOTE | 2022-03-15 09:30 | Pharmacy Report ---
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 Patient being treated with daptomycin/ertapenem. D/c daptomycin and starting vancomycin d/t difficulty finding placement with daptomycin. ID consulted. Renal function stable. Day # 3 vancomycin Plan Vancomycin * Vancomycin level this AM, 16.5mcg/mL (~11hr level) predicted to achieve steady state AUC/GRACIE 527mg/L.hr - therapeutic * Continue 1500 mg IV every 12 hours * Will repeat a level in ~ 48h or sooner if clinically indicated Pharmacy will continue to follow and will adjust dose/frequency as necessary. Thank you. Pharmacy has transitioned to AUC monitoring for vancomycin. AUC/GRACIE is the preferred PK/PD target and is associated with decreased risk of nephrotoxicity compared to traditional trough targets.
[2022-03-15] MEDS: amLODIPine BESYLATE 5 MG TAB PO SCH (11:30)
[2022-03-15] MEDS: ERTAPENEM SODIUM 1,000 MG in SYRINGE 0 ML IV SCH (15:30)
--- NOTE | 2022-03-15 16:35 | Hospitalist Progress Note ---
Date of Service March 15, 2022 Assessment & Plan (1) Diabetic foot infection: (2) Diabetic foot ulcer associated with type 2 diabetes mellitus: (3) Osteomyelitis of right foot: (4) Peripheral arterial disease: (5) Stroke: (6) GERD (gastroesophageal reflux disease): Plan per Dr. Campbell's notes with addendum: Diabetic foot infection x right No overt sepsis POA. 02/18: I&D right foot, partial excision of fifth ray right foot, delayed primary closure right foot wound. By Dr. Gianluca Jackson. 02/21: Right foot debridement, wound VAC application. By Dr. Gianluca Jackson. 02/25: Right leg arteriogram, lithotripsy of proximal popliteal artery, staff mechanical engineer al closure of left femoral artery. By Dr. Howard Ocampo. Stenographer Secretary on board, wound VAC changes Thursday. 02/18 wound culture: Reviewed; await 02/24 pathology results. 02/18 pathology results suggestive of focal acute osteomyelitis in amputated right fifth toe. 02/17 blood culture: Negative 02/27: Amputation Right 4th Toe by Dr. Jackson 03/07: business machine operator placed new dressings. Per picture and documentation, wound bed is healing with some slough present. Vac in place Patient reports pain under control, ID evaluated 02/24, continue with daptomycin and ertapenem for 6 weeks from the date of his last surgery. Weekly CK on daptomycin. 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 Focal area of high-grade stenosis of the proximal inferior mesenteric artery. Multifocal stenosis within the bilateral lower extremity arterial systems. Distal right posterior tibial artery, distal left anterior tibial artery, and distal bilateral peroneal arteries are likely occluded. Vascular team on board, status post intervention on 02/25 [see above] No significant pain involving the extremities Other chronic medical conditions:History of CVA/HTN/HLD/DM2-->> continue home meds as and when able. Hold statin while on daptomycin. Patient with diabetic neuropathy and diabetic foot ulcers. Sliding scale while in hospital. A1c of 6.7 in August 2021. DVT prophylaxis:Heparin sq Full code PT/OT, CM to assist with DC planning. Will need SNF. stable. Awaiting placement plan of care discussed with patient in detail and at length all questions answered he is understanding, agreeable, comfortable with the plan of care Admission and Anticipated Discharge Date Admission Date: February 17, 2022 Subjective Follow-up for diabetic foot infection, osteomyelitis, etc. Seen sleeping but easily awakened Comfortable, not distressed States he feels fine overall Denies foot or leg discomfort today no chest pain, dyspnea, palpitations, dizziness No other symptoms Review of Systems Review of Systems: all noted and negative except for above Physical Exam Physical Exam: General- oriented x 3, not in distress, speaks in sentences with no effort or accessory muscle use Eyes- anicteric Neck- no JVD Lungs- clear BS bilaterally, no rales/wheezes Heart- normal rate, regular rhythm; no murmurs Abdomen- normal bowel sounds, nondistended, soft, nontender Extremities- Right lower extremity: Wound VAC in place, minimal erythema surrounding the wound. No tenderness/warmth left lower extremity: No pretibial edema, no calf tenderness Neuro- alert, oriented x 3; no gross focal neurologic deficits Skin- warm & dry Results & Data Results & Data ([facility]) Vital Signs (Past 12 Hours) Vital Signs Temp Pulse Resp BP Pulse Ox O2 Del Method 03/15/22 16:29 36.4 C L 52 L 18 168/83 H 96 Room Air 03/15/22 07:36 36.6 C 76 18 183/82 H 95 Room Air all noted and reviewed including below
[2022-03-15] MEDS ORDERED: hydrALAZINE HCL 20 MG/ML VIAL IV PRN (16:41)
[2022-03-15] MEDS: LANTUS PER UNIT CHARGE SQ SCH (21:12)
[2022-03-15] MEDS: ROSUVASTATIN CALCIUM 10 MG TAB PO SCH (21:19)
[2022-03-16] MEDS: HEPARIN SOD 5,000 UNIT/0.5 ML VIAL SQ SCH ×2 (08:02→21:55)
[2022-03-16] MEDS: DUTASTERIDE PO SCH (08:03)
[2022-03-16] MEDS: CLOPIDOGREL BISULFATE 75 MG TAB PO SCH (08:03)
[2022-03-16] MEDS: PANTOprazole 40 MG TAB PO SCH (08:03)
[2022-03-16] MEDS: ADVANCED PROBIOTIC 1250 MG CAPSULE PO SCH (08:03)
[2022-03-16] MEDS: OLMESARTAN MEDOXOMIL 40 MG TAB PO SCH (08:03)
[2022-03-16] MEDS: amLODIPine BESYLATE 5 MG TAB PO SCH (08:03)
[2022-03-16] MEDS: MENTHOL-ZINC OXIDE 360 APPLN/120 GM TUBE EXT SCH ×2 (08:04→21:55)
[2022-03-16] MEDS: METOPROLOL TARTRATE 25 MG TAB PO SCH (08:09)
[2022-03-16] MEDS: INSULIN ASPART PER UNIT SC SCH ×4 (08:33→21:55)
[2022-03-16] MEDS ORDERED: amLODIPine BESYLATE 5 MG TAB PO ONE (09:00)
[2022-03-16] MEDS: VANCOMYCIN HCL 1,500 MG in SODIUM CHLORIDE 0.9% 500 ML IV SCH ×2 (09:03→21:01)
[2022-03-16] MEDS: ERTAPENEM SODIUM 1,000 MG in SYRINGE 0 ML IV SCH (15:49)
--- NOTE | 2022-03-16 19:22 | Hospitalist Progress Note ---
Date of Service March 16, 2022 Delayed entry Date of service per above Assessment & Plan (1) Diabetic foot infection: (2) Diabetic foot ulcer associated with type 2 diabetes mellitus: (3) Osteomyelitis of right foot: (4) Peripheral arterial disease: (5) Stroke: (6) GERD (gastroesophageal reflux disease): Plan per Dr. Campbell's notes with addendum: Diabetic foot infection x right No overt sepsis POA. 02/18: I&D right foot, partial excision of fifth ray right foot, delayed primary closure right foot wound. By Dr. Gianluca Jackson. 02/21: Right foot debridement, wound VAC application. By Dr. Gianluca Jackson. 02/25: Right leg arteriogram, lithotripsy of proximal popliteal artery, mechanical closure of left femoral artery. By Dr. Howard Ocampo. Offender Employment Specialist on board, wound VAC changes Thursday. 02/18 wound culture: Reviewed; await 02/24 pathology results. 02/18 pathology results suggestive of focal acute osteomyelitis in amputated right fifth toe. 02/17 blood culture: Negative 02/27: Amputation Right 4th Toe by Dr. Jackson 03/07: automatic paint sprayer operator placed new dressings. Per picture and documentation, wound bed is healing with some slough present. Vac in place Patient reports pain under control, ID evaluated 02/24, continue with daptomycin and ertapenem for 6 weeks from the date of his last surgery. Weekly CK on daptomycin. 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 Focal area of high-grade stenosis of the proximal inferior mesenteric artery. Multifocal stenosis within the bilateral lower extremity arterial systems. Distal right posterior tibial artery, distal left anterior tibial artery, and distal bilateral peroneal arteries are likely occluded. Vascular team on board, status post intervention on 02/25 [see above] No significant pain involving the extremities Other chronic medical conditions:History of CVA/HTN/HLD/DM2-->> continue home meds as and when able. Hold statin while on daptomycin. Patient with diabetic neuropathy and diabetic foot ulcers. Sliding scale while in hospital. A1c of 6.7 in August 2021. DVT prophylaxis:Heparin sq Full code PT/OT, CM to assist with DC planning. Will need SNF. stable. Awaiting placement plan of care discussed with patient in detail and at length all questions answered he is understanding, agreeable, comfortable with the plan of care Admission and Anticipated Discharge Date Admission Date: February 17, 2022 Subjective Follow-up for DM foot infection, status post amputation right fourth toe, I&D of the right foot etc. Seen resting in bed, comfortable, not distressed States he feels fine overall Denies pain on the right lower extremity No chest pain, shortness of breath No abdominal pain, diarrhea No other symptom Review of Systems Review of Systems: all noted and negative except for above Physical Exam Physical Exam: General- oriented x 3, not in distress, speaks in sentences with no effort or accessory muscle use Eyes- anicteric Neck- no JVD Lungs- clear BS bilaterally, crackles Heart- normal rate, regular rhythm; no murmurs Abdomen- normal bowel sounds, nondistended, soft, nontender Extremities- Right lower extremity: Wound VAC in place, minimal erythema surrounding the wound. No tenderness/warmth left lower extremity: No pretibial edema, no calf tenderness Neuro- alert, oriented x 3; no gross focal neurologic deficits Skin- warm & dry Results & Data Results & Data ([facility]) Vital Signs (Past 12 Hours) Vital Signs Temp Pulse Pulse Resp BP Pulse Ox O2 Del Method 03/16/22 15:41 36.6 C 53 L 18 178/108 H 94 Room Air 03/16/22 09:18 36.7 C 53 L 18 176/88 H 94 Room Air 03/16/22 08:08 62 all noted and reviewed including below
[2022-03-16] MEDS: LANTUS PER UNIT CHARGE SQ SCH (21:54)
[2022-03-16] MEDS: ROSUVASTATIN CALCIUM 10 MG TAB PO SCH (21:54)
[2022-03-17] MEDS ORDERED: VANCOMYCIN LEVEL ONE (08:00)
[2022-03-17] MEDS: METOPROLOL TARTRATE 25 MG TAB PO SCH (08:36)
[2022-03-17] MEDS: PANTOprazole 40 MG TAB PO SCH (08:36)
[2022-03-17] MEDS: ADVANCED PROBIOTIC 1250 MG CAPSULE PO SCH (08:36)
[2022-03-17] MEDS: CLOPIDOGREL BISULFATE 75 MG TAB PO SCH (08:36)
[2022-03-17] MEDS: OLMESARTAN MEDOXOMIL 40 MG TAB PO SCH (08:36)
[2022-03-17] MEDS: HEPARIN SOD 5,000 UNIT/0.5 ML VIAL SQ SCH ×2 (08:37→21:13)
[2022-03-17] MEDS: MENTHOL-ZINC OXIDE 360 APPLN/120 GM TUBE EXT SCH ×2 (08:39→21:14)
[2022-03-17] MEDS: DUTASTERIDE PO SCH (08:39)
[2022-03-17] MEDS: INSULIN ASPART PER UNIT SC SCH ×4 (08:49→21:14)
[2022-03-17] MEDS: VANCOMYCIN HCL 1,500 MG in SODIUM CHLORIDE 0.9% 500 ML IV SCH (08:52)
[2022-03-17 08:57] LABS: Creatinine Clr Calc Pharmacy 106.1 ml/min; Est GFR (African American) 112.2 ml/min; Est GFR (Non-African American) 96.8 ml/min
[2022-03-17] MEDS ORDERED: amLODIPine BESYLATE 5 MG TAB PO SCH (09:00)
--- NOTE | 2022-03-17 09:30 | Pharmacy Report ---
Pharmacy PK ABX Note - Date of Service March 17, 2022 - Assessment and Plan Assessment 61 year old M receiving Vancomycin and Ertapenem for treatment of bone and joint infection. 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 Patient being treated with daptomycin/ertapenem. D/c daptomycin and starting vancomycin d/t difficulty finding placement with daptomycin. ID consulted. Renal function stable. * Day #5 of vancomycin Plan Vancomycin * Current regimen: 1500 mg IV every 12 hours * Trough level obtained 03/17/22 resulted as 20.9 mcg/mL. This is supratherapeutic. * Change to 1250 mg IV every 12 hours. Predicted AUC at steady state: 505 mg/L.hr * Repeat trough level ordered for: 03/19/22 Pharmacy will continue to follow and will adjust dose/frequency as necessary. Thank you. Pharmacy has transitioned to AUC monitoring for vancomycin. AUC/GRACIE is the preferred PK/PD target and is associated with decreased risk of nephrotoxicity compared to traditional trough targets.
[2022-03-17] MEDS ORDERED: FUROSEMIDE INJ 20 MG/2 ML VIAL IV ONE (15:22)
--- NOTE | 2022-03-17 15:34 | Hospitalist Progress Note ---
Date of Service March 17, 2022 Assessment & Plan (1) Diabetic foot infection: (2) Diabetic foot ulcer associated with type 2 diabetes mellitus: (3) Osteomyelitis of right foot: (4) Peripheral arterial disease: (5) Stroke: (6) GERD (gastroesophageal reflux disease): Plan per Dr. Campbell's notes with addendum: Diabetic foot infection x right No overt sepsis POA. 02/18: I&D right foot, partial excision of fifth ray right foot, delayed primary closure right foot wound. By Dr. Gianluca Jackson. 02/21: Right foot debridement, wound VAC application. By Dr. Gianluca Jackson. 02/25: Right leg arteriogram, lithotripsy of proximal popliteal artery, body and fender mechanic apprentice al closure of left femoral artery. By Dr. Howard Ocampo. Director Educational Radio on board, wound VAC changes Thursday. 02/18 wound culture: Reviewed; await 02/24 pathology results. 02/18 pathology results suggestive of focal acute osteomyelitis in amputated right fifth toe. 02/17 blood culture: Negative 02/27: Amputation Right 4th Toe by Dr. Jackson 03/07: lead sharepoint developer placed new dressings. Per picture and documentation, wound bed is healing with some slough present. Vac in place Patient reports pain under control, ID evaluated 02/24, continue with daptomycin and ertapenem for 6 weeks from the date of his last surgery. Weekly CK on daptomycin. 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 Focal area of high-grade stenosis of the proximal inferior mesenteric artery. Multifocal stenosis within the bilateral lower extremity arterial systems. Distal right posterior tibial artery, distal left anterior tibial artery, and distal bilateral peroneal arteries are likely occluded. Vascular team on board, status post intervention on 02/25 [see above] No significant pain involving the extremities Other chronic medical conditions:History of CVA/HTN/HLD/DM2-->> continue home meds as and when able. Hold statin while on daptomycin. Patient with diabetic neuropathy and diabetic foot ulcers. Sliding scale while in hospital. A1c of 6.7 in August 2021. DVT prophylaxis:Heparin sq Full code PT/OT, CM to assist with DC planning. Will need SNF. stable. Awaiting placement plan of care discussed with patient in detail and at length all questions answered he is understanding, agreeable, comfortable with the plan of care Admission and Anticipated Discharge Date Admission Date: February 17, 2022 Subjective Follow-up for DM foot infection, status post I&D, status post amputation of the fourth toe, etc. Seen resting in bed side chair, comfortable, not in distress watching TV States he feels fine overall Reports legs are swollen today, minimal discomfort No new symptoms Review of Systems Review of Systems: all noted and negative except for above Physical Exam Physical Exam: General- oriented x 3, not in distress, speaks in sentences with no effort or accessory muscle use Eyes- anicteric Neck- no JVD Lungs- clear breath sounds bilaterally, no crackles, no wheezing noted Heart- normal rate, regular rhythm; no murmurs Abdomen- normal bowel sounds, nondistended, soft, nontender Extremities-bilateral lower extremity edema mild Right lower extremity: Wound VAC in place, very minimal erythema surrounding the wound Neuro- alert, oriented x 3; no gross focal neurologic deficits Skin- warm & dry Results & Data Results & Data ([facility]) Vital Signs (Past 12 Hours) Vital Signs Temp Pulse Pulse Resp BP Pulse Ox O2 Del Method 03/17/22 15:04 36.4 C L 54 L 18 144/81 H 97 Room Air 03/17/22 12:00 36.2 C L 56 L 15 140/74 97 Room Air 03/17/22 07:42 36.6 C 54 L 14 158/71 H 93 Room Air all noted and reviewed including below
[2022-03-17] MEDS: ERTAPENEM SODIUM 1,000 MG in SYRINGE 0 ML IV SCH (15:46)
[2022-03-17] MEDS: ROSUVASTATIN CALCIUM 10 MG TAB PO SCH (21:13)
[2022-03-17] MEDS: LANTUS PER UNIT CHARGE SQ SCH (21:14)
[2022-03-18] MEDS: VANCOMYCIN HCL 1,250 MG in SODIUM CHLORIDE 0.9% 250 ML IV SCH ×2 (00:48→12:54)
[2022-03-18] MEDS: HEPARIN SOD 5,000 UNIT/0.5 ML VIAL SQ SCH ×2 (08:38→21:21)
[2022-03-18] MEDS: DUTASTERIDE PO SCH (08:38)
[2022-03-18] MEDS: METOPROLOL TARTRATE 25 MG TAB PO SCH (08:44)
[2022-03-18] MEDS: CLOPIDOGREL BISULFATE 75 MG TAB PO SCH (08:45)
[2022-03-18] MEDS: ADVANCED PROBIOTIC 1250 MG CAPSULE PO SCH (08:45)
[2022-03-18] MEDS: PANTOprazole 40 MG TAB PO SCH (08:45)
[2022-03-18] MEDS: OLMESARTAN MEDOXOMIL 40 MG TAB PO SCH (08:45)
[2022-03-18] MEDS: MENTHOL-ZINC OXIDE 360 APPLN/120 GM TUBE EXT SCH ×3 (08:46→21:21)
[2022-03-18] MEDS: INSULIN ASPART PER UNIT SC SCH ×4 (08:52→21:22)
[2022-03-18] MEDS: ERTAPENEM SODIUM 1,000 MG in SYRINGE 0 ML IV SCH (14:23)
[2022-03-18] MEDS ORDERED: amLODIPine BESYLATE 5 MG TAB PO ONE (16:08)
--- NOTE | 2022-03-18 16:11 | Hospitalist Progress Note ---
Date of Service March 18, 2022 Assessment & Plan (1) Diabetic foot infection: (2) Diabetic foot ulcer associated with type 2 diabetes mellitus: (3) Osteomyelitis of right foot: (4) Peripheral arterial disease: (5) Stroke: (6) GERD (gastroesophageal reflux disease): Plan per Dr. Campbell's notes with addendum: Diabetic foot infection x right No overt sepsis POA. 02/18: I&D right foot, partial excision of fifth ray right foot, delayed primary closure right foot wound. By Dr. Gianluca Jackson. 02/21: Right foot debridement, wound VAC application. By Dr. Gianluca Jackson. 02/25: Right leg arteriogram, lithotripsy of proximal popliteal artery, mechanical design drafter al closure of left femoral artery. By Dr. Howard Ocampo. Ball Thread Machine Tender on board, wound VAC changes Thursday. 02/18 wound culture: Reviewed; await 02/24 pathology results. 02/18 pathology results suggestive of focal acute osteomyelitis in amputated right fifth toe. 02/17 blood culture: Negative 02/27: Amputation Right 4th Toe by Dr. Jackson 03/07: clinical project coordinator placed new dressings. Per picture and documentation, wound bed is healing with some slough present. Vac in place Patient reports pain under control, ID evaluated 02/24, continue with daptomycin and ertapenem for 6 weeks from the date of his last surgery. Weekly CK on daptomycin. 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 Focal area of high-grade stenosis of the proximal inferior mesenteric artery. Multifocal stenosis within the bilateral lower extremity arterial systems. Distal right posterior tibial artery, distal left anterior tibial artery, and distal bilateral peroneal arteries are likely occluded. Vascular team on board, status post intervention on 02/25 [see above] No significant pain involving the extremities Other chronic medical conditions:History of CVA/HTN/HLD/DM2-->> continue home meds as and when able. Hold statin while on daptomycin. Patient with diabetic neuropathy and diabetic foot ulcers. Sliding scale while in hospital. A1c of 6.7 in August 2021. DVT prophylaxis:Heparin sq Full code PT/OT, CM to assist with DC planning. Will need SNF. stable. Awaiting placement plan of care discussed with patient in detail and at length all questions answered he is understanding, agreeable, comfortable with the plan of care Admission and Anticipated Discharge Date Admission Date: February 17, 2022 Subjective Follow-up for diabetic foot infection, status post amputation, etc. Resting in bed, comfortable, not in distress States he feels fine overall Denies leg or foot pain no chest pain, dyspnea, palpitations, dizziness No headache Appetite is good No diarrhea No other symptom Review of Systems 2 Review of Systems: all noted and negative except for above Physical Exam Physical Exam: General- oriented x 3, not in distress, speaks in sentences with no effort or accessory muscle use Eyes- anicteric Neck- no JVD Lungs- clear BS BL Heart- normal rate, regular rhythm; no murmurs Abdomen- normal bowel sounds, nondistended, soft, nontender Extremities-trace pretibial edema, no calf tenderness Right foot: Wound VAC in place, minimal erythema surrounding wound Neuro- alert, oriented x 3; no gross focal neurologic deficits Skin- warm & dry Results & Data Results & Data ([facility]) Vital Signs (Past 12 Hours) Vital Signs Temp Pulse Resp BP Pulse Ox O2 Del Method 03/18/22 15:06 36.7 C 53 L 20 170/72 H 98 Room Air 03/18/22 07:46 36.4 C L 52 L 18 122/69 95 Room Air all noted and reviewed including below
[2022-03-18] MEDS: LANTUS PER UNIT CHARGE SQ SCH (21:22)
[2022-03-18] MEDS: ROSUVASTATIN CALCIUM 10 MG TAB PO SCH (21:22)
[2022-03-19] MEDS: VANCOMYCIN HCL 1,250 MG in SODIUM CHLORIDE 0.9% 250 ML IV SCH ×3 (00:06→23:47)
[2022-03-19 07:31] LABS: Creatinine Clr Calc Pharmacy 90.7 ml/min; Est GFR (African American) 99.9 ml/min; Est GFR (Non-African American) 86.2 ml/min
[2022-03-19] MEDS: OLMESARTAN MEDOXOMIL 40 MG TAB PO SCH (07:56)
[2022-03-19] MEDS: CLOPIDOGREL BISULFATE 75 MG TAB PO SCH (07:57)
[2022-03-19] MEDS: ADVANCED PROBIOTIC 1250 MG CAPSULE PO SCH (07:57)
[2022-03-19] MEDS: METOPROLOL TARTRATE 25 MG TAB PO SCH (07:57)
[2022-03-19] MEDS: PANTOprazole 40 MG TAB PO SCH (07:57)
[2022-03-19] MEDS: HEPARIN SOD 5,000 UNIT/0.5 ML VIAL SQ SCH ×2 (07:59→21:28)
[2022-03-19] MEDS: DUTASTERIDE PO SCH (07:59)
[2022-03-19] MEDS: MENTHOL-ZINC OXIDE 360 APPLN/120 GM TUBE EXT SCH ×2 (08:02→21:29)
[2022-03-19] MEDS: INSULIN ASPART PER UNIT SC SCH ×4 (08:40→21:27)
[2022-03-19] MEDS ORDERED: amLODIPine BESYLATE 5 MG TAB PO ONE (08:45)
[2022-03-19] MEDS ORDERED: amLODIPine BESYLATE 5 MG TAB PO SCH (09:00)
[2022-03-19] MEDS ORDERED: VANCOMYCIN LEVEL ONE (11:30)
--- NOTE | 2022-03-19 13:41 | Pharmacy Report ---
Pharmacy PK ABX Note - Date of Service March 19, 2022 - Assessment and Plan Assessment 61 year old M receiving Vancomycin and Ertapenem for treatment of bone and joint infection. 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 Patient being treated with daptomycin/ertapenem. D/c daptomycin and starting vancomycin d/t difficulty finding placement with daptomycin. ID consulted. Renal function stable. * Day #7 of vancomycin 03/19 * Plan for 6 weeks of antibiotics from 02/27 * Trough today predicts therapeutic AUC at steady state, will continue current dosing * SCr 0.82 --> 0.96 this morning- continue to monitor Plan Vancomycin * Current regimen: 1250 mg IV every 12 hours * Trough level obtained 03/19/22 resulted as 16.9 mcg/mL. This is therapeutic * Continue current dosing * Monitor renal function, trough/random level in 3-4 days if stable. Pharmacy will continue to follow and will adjust dose/frequency as necessary. Thank you. Pharmacy has transitioned to AUC monitoring for vancomycin. AUC/GRACIE is the preferred PK/PD target and is associated with decreased risk of nephrotoxicity compared to traditional trough targets.
[2022-03-19] MEDS: ERTAPENEM SODIUM 1,000 MG in SYRINGE 0 ML IV SCH (15:11)
--- NOTE | 2022-03-19 18:08 | Hospitalist Progress Note ---
Date of Service March 19, 2022 Assessment & Plan (1) Diabetic foot infection: (2) Diabetic foot ulcer associated with type 2 diabetes mellitus: (3) Osteomyelitis of right foot: (4) Peripheral arterial disease: (5) Stroke: (6) GERD (gastroesophageal reflux disease): Plan per Dr. Campbell's notes with addendum: Diabetic foot infection, Osteomyelitis Status post amputation of the right fourth and fifth toes No overt sepsis POA. 02/18: I&D right foot, partial excision of fifth ray right foot, delayed primary closure right foot wound. By Dr. Gianluca Jackson. 02/21: Right foot debridement, wound VAC application. By Dr. Gianluca Jackson. 02/25: Right leg arteriogram, lithotripsy of proximal popliteal artery, mechanical closure of left femoral artery. By Dr. Howard Ocampo. Plate Glass Grinder on board, wound VAC changes Thursday. 02/18 wound culture: Reviewed; await 02/24 pathology results. 02/18 pathology results suggestive of focal acute osteomyelitis in amputated right fifth toe. 02/17 blood culture: Negative 02/27: Amputation Right 4th Toe by Dr. Jackson 03/07: rainbow trout farm manager placed new dressings. Per picture and documentation, wound bed is healing with some slough present. 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 Focal area of high-grade stenosis of the proximal inferior mesenteric artery. Multifocal stenosis within the bilateral lower extremity arterial systems. Distal right posterior tibial artery, distal left anterior tibial artery, and distal bilateral peroneal arteries are likely occluded. Vascular team on board, status post intervention on 02/25 [see above] No significant pain involving the extremities Other chronic medical conditions:History of CVA/HTN/HLD/DM2-->> continue home meds Sliding scale while in hospital. A1c of 6.7 in August 2021. DVT prophylaxis:Heparin sq Full code Disposition Awaiting placement to SNF Admission and Anticipated Discharge Date Admission Date: February 17, 2022 Subjective Follow-up for diabetic foot infection, osteomyelitis of the right foot, etc. Seen resting in bed, comfortable, having lunch States he feels fine overall Denies leg or foot pain No shortness of breath No other symptom Review of Systems Review of Systems: all noted and negative except for above Physical Exam Physical Exam: General- oriented x 3, not in distress, speaks in sentences with no effort or accessory muscle use Eyes- anicteric Neck- no JVD Lungs- clear breath sounds bilaterally,No crackles noted Heart- normal rate, regular rhythm; no murmurs Abdomen- normal bowel sounds, nondistended, soft, No tenderness Extremities- Mild bilateral lower extremity edema Right foot: Wound VAC in place. Mild erythema around the wound VAC Neuro- alert, oriented x 3; no gross focal neurologic deficits Skin- warm & dry Results & Data Results & Data ([facility]) Vital Signs (Past 12 Hours) Vital Signs Temp Pulse Pulse Resp BP Pulse Ox O2 Del Method 03/19/22 15:23 36.7 C 54 L 16 145/68 H 96 Room Air 03/19/22 07:54 36.8 C 58 L 18 172/84 H 96 Room Air all noted and reviewed including below
[2022-03-19] MEDS: LANTUS PER UNIT CHARGE SQ SCH (21:28)
[2022-03-19] MEDS: ROSUVASTATIN CALCIUM 10 MG TAB PO SCH (21:31)
[2022-03-20 06:58] LABS: Creatinine Clr Calc Pharmacy 101.2 ml/min; Est GFR (Non-African American) 94.9 ml/min
[2022-03-20] MEDS: HEPARIN SOD 5,000 UNIT/0.5 ML VIAL SQ SCH ×2 (09:28→21:09)
[2022-03-20] MEDS: amLODIPine BESYLATE 5 MG TAB PO SCH (09:29)
[2022-03-20] MEDS: CLOPIDOGREL BISULFATE 75 MG TAB PO SCH (09:30)
[2022-03-20] MEDS: ADVANCED PROBIOTIC 1250 MG CAPSULE PO SCH (09:30)
[2022-03-20] MEDS: DUTASTERIDE PO SCH (09:31)
[2022-03-20] MEDS: MENTHOL-ZINC OXIDE 360 APPLN/120 GM TUBE EXT SCH ×2 (09:32→21:12)
[2022-03-20] MEDS: INSULIN ASPART PER UNIT SC SCH ×4 (09:33→21:34)
--- NOTE | 2022-03-20 10:46 | Hospitalist Progress Note ---
Date of Service March 20, 2022 Assessment & Plan (1) Diabetic foot infection: (2) Diabetic foot ulcer associated with type 2 diabetes mellitus: (3) Osteomyelitis of right foot: (4) Peripheral arterial disease: (5) Post-operative state: (6) Stroke: (7) Diabetes mellitus: (8) Neuropathy: Plan Diabetic foot infection, Osteomyelitis Status post amputation of the right fourth and fifth toes No overt sepsis POA. 02/18: I&D right foot, partial excision of fifth ray right foot, delayed primary closure right foot wound. By Dr. Gianluca Jackson. 02/21: Right foot debridement, wound VAC application. By Dr. Gianluca Jackson. 02/25: Right leg arteriogram, lithotripsy of proximal popliteal artery, mechanical closure of left femoral artery. By Dr. Howard Ocampo. Taffy Puller on board, wound VAC changes Thursday. 02/18 wound culture: Reviewed; await 02/24 pathology results. 02/18 pathology results suggestive of focal acute osteomyelitis in amputated right fifth toe. 02/17 blood culture: Negative 02/27: Amputation Right 4th Toe by Dr. Jackson 03/07: hand woodworking sander placed new dressings. Per picture and documentation, wound bed is healing with some slough present. 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 Focal area of high-grade stenosis of the proximal inferior mesenteric artery. Multifocal stenosis within the bilateral lower extremity arterial systems. Distal right posterior tibial artery, distal left anterior tibial artery, and distal bilateral peroneal arteries are likely occluded. Vascular team on board, status post intervention on 02/25 [see above] No significant pain involving the extremities h/o CVA: cont medical management DMII: chronic, current inpatient glucose at goal , cont current management. A1C in September 15 reflects good control DVT prophylaxis:Heparin sq Full code Disposition: Awaiting placement to [facility] DO Lester Aguillon Hospitalist Admission and Anticipated Discharge Date Admission Date: February 17, 2022 Subjective Follow-up for diabetic foot infection, osteomyelitis of the right foot, etc. Seen resting in bed, comfortable, having lunch States he feels fine overall Denies leg or foot pain No shortness of breath No other symptoms States he has been getting up and out of bed, and that he has been putting weight on his foot Review of Systems Review of Systems: All systems were reviewed and negative except as indicated on subjective above. Physical Exam Physical Exam: CONSTITUTIONAL: WNWD, vitals as above, generally well- appearing, NAD EYES: normal conjunctivae, no scleral icterus ENT: external ear and nose normal, MMM NECK: trachea midline RESPIRATORY: clear to auscultation bilaterally, no crackles, rales or wheezes, normal respiratory effort CARDIOVASCULAR: regular rate and rhythm, S1 and 2 heard without murmurs, gallop s or rubs, no JVD, no peripheral edema CHEST: inspection of chest was normal GASTROINTESTINAL: soft, nontender, ND, no guarding MUSCULOSKELETAL: strength 5/5 throughout, head is normocephalic and atraumatic SKIN: warm and dry NEUROLOGIC: CN 2-12 grossly intact, no sensory deficit, normal cognition, normal speech, no tremor PSYCHIATRIC: alert cooperative and oriented to person, place and time. Euthymic mood, makes good eye contact, language grossly intact, recent and remote memory grossly intact. Results & Data Results & Data ([facility]) Vital Signs (Past 12 Hours) Vital Signs Temp Pulse Resp BP Pulse Ox O2 Del Method 03/20/22 07:28 36.5 C 54 L 18 165/60 H 97 Room Air Laboratory Results [facility] 03/20/22 05:49 Creatinine 0.86 Medications Administered Current Inpatient Medications Amlodipine Besylate (Amlodipine Besylate 5 Mg Tab) 10 mg PO QAM [facility] Stop: 04/19/22 08:59 Last Admin: 03/20/22 09:29 Dose: 10 mg Calamine/Phenol (Menthol-Zinc Oxide 360 Appln/120 Gm Tube) 1 appln EXT BID [facility] Stop: 04/10/22 08:59 Last Admin: 03/20/22 09:32 Dose: 1 appln Clopidogrel Bisulfate (Clopidogrel Bisulfate 75 Mg Tab) 75 mg PO QAM [facility] Stop: 03/22/22 08:59 Last Admin: 11/24/22 09:30 Dose: 75 mg Dutasteride (Dutasteride) 1 each PO DAILY [facility] Stop: 03/23/22 08:59 Last Admin: 03/20/22 09:31 Dose: 1 each Heparin Sodium (Porcine) (Heparin Sod 5,000 Unit/0.5 Ml Vial) 5,000 units SQ Q12 [facility] Stop: 03/21/22 22:59 Last Admin: 03/20/22 09:28 Dose: 5,000 units Hydralazine HCl (Hydralazine Hcl 20 Mg/Ml Vial) 5 mg IV Q6H PRN PRN Reason: systolic bp > 160 Stop: 04/14/22 16:44 Ertapenem 1,000 mg/ Syringe 10 mls @ 2 mls/min IV Q24H [facility] Stop: 04/07/22 14:59 Last Admin: 03/19/22 15:11 Dose: 2 mls/min Vancomycin HCl 1,250 mg/ (Sodium Chloride) 275 mls @ 200 mls/hr IV Q12H [facility]; Protocol Stop: 04/29/22 00:00 Last Infusion: 03/20/22 01:16 Dose: Infused Insulin Aspart (Insulin Aspart Per Unit) 0 units SC ACHS [facility] Stop: 03/30/22 07:29 Last Admin: 03/20/22 09:33 Dose: 5 units Insulin Glargine (Lantus Per Unit Charge) 15 units SQ HS [facility] Stop: 04/06/22 20:59 Last Admin: 03/19/22 21:28 Dose: 15 units Lactobacillus Acidophilus (Advanced Probiotic 1250 Mg Capsule) 2 cap PO DAILY [facility] Stop: 03/23/22 12:59 Last Admin: 03/20/22 09:30 Dose: 2 cap Miscellaneous Information (Vancomycin Consult Active) 1 each N/A UD PRN PRN Reason: Consult Stop: 04/11/22 17:42 Rosuvastatin Calcium (Rosuvastatin Calcium 10 Mg Tab) 10 mg PO QPM [facility] Stop: 04/13/22 20:59 Last Admin: 03/19/22 21:31 Dose: 10 mg
[2022-03-20] MEDS: VANCOMYCIN HCL 1,250 MG in SODIUM CHLORIDE 0.9% 250 ML IV SCH (13:25)
[2022-03-20] MEDS: ERTAPENEM SODIUM 1,000 MG in SYRINGE 0 ML IV SCH (15:00)
[2022-03-20] MEDS: ROSUVASTATIN CALCIUM 10 MG TAB PO SCH (21:11)
[2022-03-20] MEDS: LANTUS PER UNIT CHARGE SQ SCH (21:34)
[2022-03-21] MEDS: VANCOMYCIN HCL 1,250 MG in SODIUM CHLORIDE 0.9% 250 ML IV SCH ×3 (00:46→23:49)
[2022-03-21 07:24] LABS: Hematocrit (blood only) 36.5 % (40.1-51.0); Mean Corpuscular Hgb Conc 32.9 g/dL (32.0-36.0); Mean Corpuscular Volume 85.1 fL (80.0-100.0); Mean Platelet Volume 9.8 fL (9.4-12.4); Platelet Count 242 K/uL (130-400); RDW Coefficient of Variation 14.1 % (11.5-14.5); RDW Standard Deviation 42.9 fL (36.4-46.3); Red Blood Count 4.29 M/uL (4.63-6.08); White Blood Count 8.12 K/ul (4.8-10.8)
[2022-03-21 07:48] LABS: BUN Creatinine Ratio 17.4 (10-20); Calcium 8.9 mg/dl (8.5-10.1); Creatinine Clr Calc Pharmacy 101.2 ml/min; Est GFR (Non-African American) 94.9 ml/min; Potassium 3.6 mmol/L (3.5-5.1)
[2022-03-21] MEDS: amLODIPine BESYLATE 5 MG TAB PO SCH (07:50)
[2022-03-21] MEDS: ADVANCED PROBIOTIC 1250 MG CAPSULE PO SCH (07:51)
[2022-03-21] MEDS: CLOPIDOGREL BISULFATE 75 MG TAB PO SCH (07:51)
[2022-03-21] MEDS: HEPARIN SOD 5,000 UNIT/0.5 ML VIAL SQ SCH ×2 (07:51→21:17)
[2022-03-21] MEDS: DUTASTERIDE PO SCH (07:52)
[2022-03-21] MEDS: MENTHOL-ZINC OXIDE 360 APPLN/120 GM TUBE EXT SCH ×2 (07:53→21:17)
[2022-03-21] MEDS: INSULIN ASPART PER UNIT SC SCH ×4 (08:49→21:18)
[2022-03-21] MEDS: LOSARTAN POTASSIUM 50 MG TAB PO SCH (11:11)
[2022-03-21] MEDS: ERTAPENEM SODIUM 1,000 MG in SYRINGE 0 ML IV SCH (14:20)
--- NOTE | 2022-03-21 16:09 | Hospitalist Progress Note ---
Date of Service March 21, 2022 Assessment & Plan (1) Diabetic foot infection: (2) Diabetic foot ulcer associated with type 2 diabetes mellitus: (3) Osteomyelitis of right foot: (4) Peripheral arterial disease: (5) Post-operative state: (6) Stroke: (7) Diabetes mellitus: (8) Neuropathy: (9) HTN (hypertension): Plan Diabetic foot infection, Osteomyelitis Status post amputation of the right fourth and fifth toes No overt sepsis POA. 02/18: I&D right foot, partial excision of fifth ray right foot, delayed primary closure right foot wound. By Dr. Gianluca Jackson. 02/21: Right foot debridement, wound VAC application. By Dr. Gianluca Jackson. 02/25: Right leg arteriogram, lithotripsy of proximal popliteal artery, mechanical closure of left femoral artery. By Dr. Howard Ocampo. Media Center Specialist on board, wound VAC changes Thursday. 02/18 wound culture: Reviewed; await 02/24 pathology results. 02/18 pathology results suggestive of focal acute osteomyelitis in amputated right fifth toe. 02/17 blood culture: Negative 02/27: Amputation Right 4th Toe by Dr. Jackson 03/07: production cloth cutter placed new dressings. Per picture and documentation, wound bed is healing with some slough present. Vac in place ID evaluated 02/24 03/19 Minimal pain on the wound site (+) Lower leg edema, Lasix 20mg IV today Monitor for now As needed Lasix Continue vancomycin and ertapenem for 6 weeks from the date of his last surgery (February 27, 2022) Foot infection healing gradually Continue probiotics for reported loose stools from abx HYPERTENSION Uncontrolled, added amlodipine 10mg a couple of days ago Continue metoprolol, Olmesartan was discontinued a couple of days ago for uncertain reason Will restart ARB wtih losartan at 100mg daily now. Cont with low sodium diet. 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 Focal area of high-grade stenosis of the proximal inferior mesenteric artery. Multifocal stenosis within the bilateral lower extremity arterial systems. Distal right posterior tibial artery, distal left anterior tibial artery, and distal bilateral peroneal arteries are likely occluded. Vascular team on board, status post intervention on 02/25 [see above] No significant pain involving the extremities h/o CVA: cont medical management DMII: chronic, current inpatient glucose at goal , cont current management. A1C in September 15 reflects good control DVT prophylaxis:Heparin sq Full code Disposition: Awaiting placement to SNF DO Lester gAuillon Hospitalist Admission and Anticipated Discharge Date Admission Date: February 17, 2022 Subjective Follow-up for diabetic foot infection, osteomyelitis of the right foot, etc. sleeping upon my arrival denies any issues walked around room today per his report complaining that the nurses are encouraging to use the walker and that he do esn't like the food here Review of Systems Review of Systems: All systems were reviewed and negative except as indicated on subjective above. Physical Exam Physical Exam: CONSTITUTIONAL: WNWD, vitals as above, generally well- appearing, NAD EYES: normal conjunctivae, no scleral icterus ENT: external ear and nose normal, MMM NECK: trachea midline RESPIRATORY: clear to auscultation bilaterally, no crackles, rales or wheezes, normal respiratory effort CARDIOVASCULAR: regular rate and rhythm, S1 and 2 heard without murmurs, gallops or rubs, no JVD, no peripheral edema CHEST: inspection of chest was normal GASTROINTESTINAL: soft, nontender, ND, no guarding MUSCULOSKELETAL: strength 5/5 throughout, head is normocephalic and atraumatic SKIN: warm and dry, wound vac in place on right foot with surgical dressing around this that is c/d/i NEUROLOGIC: CN 2-12 grossly intact, no sensory deficit, normal cognition, normal speech, no tremor PSYCHIATRIC: alert cooperative and oriented to person, place and time. Euthymic mood, makes good eye contact, language grossly intact, recent and remote memory grossly intact. Results & Data Results & Data ([facility]) Vital Signs (Past 12 Hours) Vital Signs Temp Pulse Pulse Resp BP Pulse Ox O2 Del Method 03/21/22 15:11 36.4 C L 56 L 18 176/83 H 97 Room Air 03/21/22 07:26 36.4 C L 54 L 16 175/80 H 98 Room Air Laboratory Results Short CBC 03/21/22 Range/Units 06:38 WBC 8.12 (4.8-10.8) K/ul Hgb 12.0 L (14.0-18.0) g/dl Hct 36.5 L (40.1-51.0) % Plt Count 242 (130-400) K/uL BMP 03/21/22 06:38 Sodium 140 Potassium 3.6 Chloride 106 Carbon Dioxide 26 BUN 15 Creatinine 0.86 Glucose 111 H Calcium 8.9 Medications Administered Current Inpatient Medications Amlodipine Besylate (Amlodipine Besylate 5 Mg Tab) 10 mg PO QAM [facility] Stop: 04/19/22 08:59 Last Admin: 03/21/22 07:50 Dose: 10 mg Calamine/Phenol (Menthol-Zinc Oxide 360 Appln/120 Gm Tube) 1 appln EXT BID [facility] Stop: 04/10/22 08:59 Last Admin: 03/21/22 07:53 Dose: Not Given Clopidogrel Bisulfate (Clopidogrel Bisulfate 75 Mg Tab) 75 mg PO QAM [facility] Stop: 03/22/22 08:59 Last Admin: 03/21/22 07:51 Dose: 75 mg Dutasteride (Dutasteride) 1 each PO DAILY [facility] Stop: 03/23/22 08:59 Last Admin: 03/21/22 07:52 Dose: 1 each Heparin Sodium (Porcine) (Heparin Sod 5,000 Unit/0.5 Ml Vial) 5,000 units SQ Q12 [facility] Stop: 03/21/22 22:59 Last Admin: 03/21/22 07:51 Dose: 5,000 units Hydralazine HCl (Hydralazine Hcl 20 Mg/Ml Vial) 5 mg IV Q6H PRN PRN Reason: systolic bp > 160 Stop: 04/14/22 16:44 Ertapenem 1,000 mg/ Syringe 10 mls @ 2 mls/min IV Q24H [facility] Stop: 04/07/22 14:59 Last Admin: 03/21/22 14:20 Dose: 2 mls/min Vancomycin HCl 1,250 mg/ (Sodium Chloride) 275 mls @ 200 mls/hr IV Q12H [facility]; Protocol Stop: 04/29/22 00:00 Last Infusion: 03/21/22 12:54 Dose: Infused Insulin Aspart (Insulin Aspart Per Unit) 0 units SC ACHS [facility] Stop: 03/30/22 07:29 Last Admin: 03/21/22 12:49 Dose: 3 units Insulin Glargine (Lantus Per Unit Charge) 15 units SQ HS [facility] Stop: 04/06/22 20:59 Last Admin: 03/20/22 21:34 Dose: 15 units Lactobacillus Acidophilus (Advanced Probiotic 1250 Mg Capsule) 2 cap PO DAILY [facility] Stop: 03/23/22 12:59 Last Admin: 03/21/22 07:51 Dose: 2 cap Losartan Potassium (Losartan Potassium 50 Mg Tab) 100 mg PO QAM [facility] Stop: 04/20/22 09:59 Last Admin: 03/21/22 11:11 Dose: 100 mg Miscellaneous Information (Vancomycin Consult Active) 1 each N/A UD PRN PRN Reason: Consult Stop: 04/11/22 17:42 Rosuvastatin Calcium (Rosuvastatin Calcium 10 Mg Tab) 10 mg PO QPM [facility] Stop: 04/13/22 20:59 Last Admin: 03/20/22 21:11 Dose: 10 mg
[2022-03-21] MEDS: ROSUVASTATIN CALCIUM 10 MG TAB PO SCH (21:17)
[2022-03-21] MEDS: LANTUS PER UNIT CHARGE SQ SCH (21:37)
[2022-03-22] MEDS: DUTASTERIDE PO SCH (08:13)
[2022-03-22] MEDS: LOSARTAN POTASSIUM 50 MG TAB PO SCH (08:14)
[2022-03-22] MEDS: ADVANCED PROBIOTIC 1250 MG CAPSULE PO SCH (08:14)
[2022-03-22] MEDS: MENTHOL-ZINC OXIDE 360 APPLN/120 GM TUBE EXT SCH ×2 (08:15→20:29)
[2022-03-22] MEDS: INSULIN ASPART PER UNIT SC SCH ×4 (09:32→21:15)
[2022-03-22] MEDS: amLODIPine BESYLATE 5 MG TAB PO SCH (09:39)
[2022-03-22] MEDS: VANCOMYCIN HCL 1,250 MG in SODIUM CHLORIDE 0.9% 250 ML IV SCH (11:46)
--- NOTE | 2022-03-22 11:48 | Hospitalist Progress Note ---
Date of Service March 22, 2022 Assessment & Plan (1) Diabetic foot infection: (2) Diabetic foot ulcer associated with type 2 diabetes mellitus: (3) Osteomyelitis of right foot: (4) Peripheral arterial disease: (5) Post-operative state: (6) Stroke: (7) Diabetes mellitus: (8) Neuropathy: (9) HTN (hypertension): Plan Diabetic foot infection, Osteomyelitis Status post amputation of the right fourth and fifth toes No overt sepsis POA. 02/18: I&D right foot, partial excision of fifth ray right foot, delayed primary closure right foot wound. By Dr. Gianlcua Jackson. 02/21: Right foot debridement, wound VAC application. By Dr. Gianluca Jackson. 02/25: Right leg arteriogram, lithotripsy of proximal popliteal artery, mechanical closure of left femoral artery. By Dr. Howard Ocampo. Kiln Puller on board, wound VAC changes Thursday. 02/18 wound culture: Reviewed; await 02/24 pathology results. 02/18 pathology results suggestive of focal acute osteomyelitis in amputated right fifth toe. 02/17 blood culture: Negative 02/27: Amputation Right 4th Toe by Dr. Jackson 03/07: shirt operator placed new dressings. Per picture and documentation, wound bed is healing with some slough present. Vac in place ID evaluated 02/24 03/19 Minimal pain on the wound site (+) Lower leg edema, Lasix 20mg IV today Monitor for now As needed Lasix Continue vancomycin and ertapenem for 6 weeks from the date of his last surgery (February 27, 2022) Foot infection healing gradually Continue probiotics for reported loose stools from abx--these have reported resolved as of 03/[address] Jackson. HYPERTENSION improved BP control after adding losartan 100mg daily. Cont this and amlodpine 10mg. Cont metoprolol Cont with low sodium diet. 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 Focal area of high-grade stenosis of the proximal inf erior mesenteric artery. Multifocal stenosis within the bilateral lower extremity arterial systems. Distal right posterior tibial artery, distal left anterior tibial artery, and distal bilateral peroneal arteries are likely occluded. Vascular team on board, status post intervention on 02/25 [see above] No significant pain involving the extremities h/o CVA: cont medical management DMII: chronic, current inpatient glucose at goal , cont current management. A1C in September 15 reflects good control DVT prophylaxis:Heparin sq Full code Disposition: Awaiting placement to SNF DO Lester Aguillon Hospitalist Admission and Anticipated Discharge Date Admission Date: February 17, 2022 Subjective Follow-up for diabetic foot infection, osteomyelitis of the right foot, etc. No issues today Denies pain, no changes Review of Systems Review of Systems: All systems were reviewed and negative except as indicated on subjective above. Physical Exam Physical Exam: CONSTITUTIONAL: WNWD, vitals as above, generally well- appearing, NAD EYES: normal conjunctivae, no scleral icterus ENT: external ear and nose normal, MMM NECK: trachea midline RESPIRATORY: clear to auscultation bilaterally, no crackles, rales or wheezes, normal respiratory effort CARDIOVASCULAR: regular rate and rhythm, S1 and 2 heard without murmurs, gallops or rubs, no JVD, no peripheral edema CHEST: inspection of chest was normal GASTROINTESTINAL: soft, nontender, ND, no guarding MUSCULOSKELETAL: strength 5/5 throughout, head is normocephalic and atraumatic SKIN: warm and dry, wound vac in place on right foot with surgical dressing around this that is c/d/i NEUROLOGIC: CN 2-12 grossly intact, no sensory deficit, normal cognition, normal speech, no tremor PSYCHIATRIC: alert cooperative and oriented to person, place and time. Euthymic mood, makes good eye contact, language grossly intact, recent and remote memory grossly intact. Results & Data Results & Data ([facility]) Vital Signs (Past 12 Hours) Vital Signs Temp Pulse Resp BP Pulse Ox O2 Del Method 03/22/22 09:38 62 98 Room Air 03/22/22 07:19 36.6 C 52 L 16 159/70 H 97 Room Air Medications Administered Current Inpatient Medications Amlodipine Besylate (Amlodipine Besylate 5 Mg Tab) 10 mg PO QAM [facility] Stop: 04/19/22 08:59 Last Admin: 03/22/22 09:39 Dose: 10 mg Calamine/Phenol (Menthol-Zinc Oxide 360 Appln/120 Gm Tube) 1 appln EXT BID [facility] Stop: 04/10/22 08:59 Last Admin: 03/22/22 08:15 Dose: 1 appln Dutasteride (Dutasteride) 1 each PO DAILY [facility] Stop: 03/23/22 08:59 Last Admin: 03/22/22 08:13 Dose: 1 each Hydralazine HCl (Hydralazine Hcl 20 Mg/Ml Vial) 5 mg IV Q6H PRN PRN Reason: systolic bp > 160 Stop: 04/14/22 16:44 Ertapenem 1,000 mg/ Syringe 10 mls @ 2 mls/min IV Q24H [facility] Stop: 04/07/22 14:59 Last Admin: 03/21/22 14:20 Dose: 2 mls/min Vancomycin HCl 1,250 mg/ (Sodium Chloride) 275 mls @ 200 mls/hr IV Q12H [facility]; Protocol Stop: 04/29/22 00:00 Last Admin: 03/22/22 11:46 Dose: 199 mls/hr Insulin Aspart (Insulin Aspart Per Unit) 0 units SC ACHS [facility] Stop: 03/30/22 07:29 Last Admin: 03/22/22 09:32 Dose: 5 units Insulin Glargine (Lantus Per Unit Charge) 15 units SQ HS [facility] Stop: 04/06/22 20:59 Last Admin: 03/21/22 21:37 Dose: 15 units Lactobacillus Acidophilus (Advanced Probiotic 1250 Mg Capsule) 2 cap PO DAILY [facility] Stop: 03/23/22 12:59 Last Admin: 03/22/22 08:14 Dose: 2 cap Losartan Potassium (Losartan Potassium 50 Mg Tab) 100 mg PO QAM [facility] Stop: 04/20/22 09:59 Last Admin: 03/22/22 08:14 Dose: 100 mg Miscellaneous Information (Vancomycin Consult Active) 1 each N/A UD PRN PRN Reason: Consult Stop: 04/11/22 17:42 Rosuvastatin Calcium (Rosuvastatin Calcium 10 Mg Tab) 10 mg PO QPM [facility] Stop: 04/13/22 20:59 Last Admin: 03/21/22 21:17 Dose: 10 mg
[2022-03-22] MEDS: ERTAPENEM SODIUM 1,000 MG in SYRINGE 0 ML IV SCH (16:28)
[2022-03-22] MEDS: ROSUVASTATIN CALCIUM 10 MG TAB PO SCH (20:29)
[2022-03-22] MEDS: LANTUS PER UNIT CHARGE SQ SCH (21:14)
[2022-03-23] MEDS: VANCOMYCIN HCL 1,250 MG in SODIUM CHLORIDE 0.9% 250 ML IV SCH ×3 (00:24→23:29)
[2022-03-23 07:34] LABS: Creatinine Clr Calc Pharmacy 110.2 ml/min; Est GFR (African American) 113.9 ml/min; Est GFR (Non-African American) 98.3 ml/min
[2022-03-23] MEDS: amLODIPine BESYLATE 5 MG TAB PO SCH (09:18)
[2022-03-23] MEDS: ADVANCED PROBIOTIC 1250 MG CAPSULE PO SCH (09:18)
[2022-03-23] MEDS: LOSARTAN POTASSIUM 50 MG TAB PO SCH (09:19)
[2022-03-23] MEDS: MENTHOL-ZINC OXIDE 360 APPLN/120 GM TUBE EXT SCH ×2 (09:19→20:22)
[2022-03-23] MEDS: INSULIN ASPART PER UNIT SC SCH ×4 (09:45→21:34)
[2022-03-23] MEDS ORDERED: VANCOMYCIN LEVEL ONE (11:30)
--- NOTE | 2022-03-23 15:32 | Pharmacy Report ---
Pharmacy PK ABX Note - Date of Service March 23, 2022 - Assessment and Plan Assessment 61 year old M receiving Vancomycin and Ertapenem for treatment of bone and joint infection. 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 Patient was initially being treated with daptomycin/ertapenem. However, daptomycin was switched to vancomycin d/t difficulty finding placement with daptomycin. ID consulted. Renal function stable. 03/23 * Trough today remains stable and associated with therapeutic AUC. Continue vancomycin 03/19 * Plan for 6 weeks of antibiotics from 02/27 * Trough today predicts therapeutic AUC at steady state, will continue current dosing * SCr 0.82 --> 0.96 this morning- continue to monitor Plan Vancomycin * Current regimen: 1250 mg IV every 12 hours * Trough level obtained 03/23/22 resulted as 16.9 mcg/mL. This is therapeutic * Continue current dosing * Monitor renal function * Trough/random level in 5-7 days, or sooner if change in clinical status or renal function occurs Pharmacy will continue to follow and will adjust dose/frequency as necessary. Thank you. Pharmacy has transitioned to AUC monitoring for vancomycin. AUC/GRACIE is the preferred PK/PD target and is associated with decreased risk of nephrotoxicity compared to traditional trough targets.
[2022-03-23] MEDS: ERTAPENEM SODIUM 1,000 MG in SYRINGE 0 ML IV SCH (16:29)
--- NOTE | 2022-03-23 17:45 | Hospitalist Progress Note ---
Date of Service March 23, 2022 Assessment & Plan (1) Diabetic foot infection: (2) Diabetic foot ulcer associated with type 2 diabetes mellitus: (3) Osteomyelitis of right foot: (4) Peripheral arterial disease: (5) Post-operative state: (6) Stroke: (7) Diabetes mellitus: (8) Neuropathy: (9) HTN (hypertension): Plan Diabetic foot infection, Osteomyelitis Status post amputation of the right fourth and fifth toes No overt sepsis POA. 02/18: I&D right foot, partial excision of fifth ray right foot, delayed primary closure right foot wound. By Dr. Gianluca Jackson. 02/21: Right foot debridement, wound VAC application. By Dr. Gianluca Jackson. 02/25: Right leg arteriogram, lithotripsy of proximal popliteal artery, mechanical closure of left femoral artery. By Dr. Howard Ocampo. Range Mounter on board, wound VAC changes Thursday. 02/18 wound culture: Reviewed; await 02/24 pathology results. 02/18 pathology results suggestive of focal acute osteomyelitis in amputated right fifth toe. 02/17 blood culture: Negative 02/27: Amputation Right 4th Toe by Dr. Jackson 03/07: shotblast operator placed new dressings. Per picture and documentation, wound bed is healing with some slough present. Vac in place ID evaluated 02/24 03/19 Minimal pain on the wound site (+) Lower leg edema, Lasix 20mg IV today Monitor for now As needed Lasix Continue vancomycin and ertapenem for 6 weeks from the date of his last surgery (February 27, 2022) Foot infection healing gradually Continue probiotics for reported loose stools from abx--these have reported resolved as of 03/[address] Jackson. HYPERTENSION improved BP control after adding losartan 100mg daily. Cont this and amlodpine 10mg. Cont metoprolol Cont with low sodium diet. 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 Focal area of high-grade stenosis of the proximal inf erior mesenteric artery. Multifocal stenosis within the bilateral lower extremity arterial systems. Distal right posterior tibial artery, distal left anterior tibial artery, and distal bilateral peroneal arteries are likely occluded. Vascular team on board, status post intervention on 02/25 [see above] No significant pain involving the extremities h/o CVA: cont medical management DMII: chronic, current inpatient glucose at goal , cont current management. A1C in September 15 reflects good control DVT prophylaxis:Heparin sq Full code Disposition: Awaiting placement to SNF DO Lester Aguillon Hospitalist Admission and Anticipated Discharge Date Admission Date: February 17, 2022 Subjective Follow-up for diabetic foot infection, osteomyelitis of the right foot, etc. No issues today Denies pain, no changes Wound vac was removed last night by Dr. Jackson Review of Systems Review of Systems: All systems were reviewed and negative except as indicated on subjective above. Physical Exam Physical Exam: CONSTITUTIONAL: WNWD, vitals as above, generally well- appearing, NAD EYES: normal conjunctivae, no scleral icterus ENT: external ear and nose normal, MMM NECK: trachea midline RESPIRATORY: clear to auscultation bilaterally, no crackles, rales or wheezes, normal respiratory effort CARDIOVASCULAR: regular rate and rhythm, S1 and 2 heard without murmurs, gall ops or rubs, no JVD, no peripheral edema CHEST: inspection of chest was normal GASTROINTESTINAL: soft, nontender, ND, no guarding MUSCULOSKELETAL: strength 5/5 throughout, head is normocephalic and atraumatic SKIN: warm and dry, dressing around right foot that is c/d/i NEUROLOGIC: CN 2-12 grossly intact, no sensory deficit, normal cognition, normal speech, no tremor PSYCHIATRIC: alert cooperative and oriented to person, place and time. Euthymic mood, makes good eye contact, language grossly intact, recent and remote memory grossly intact. Results & Data Results & Data ([facility]) Vital Signs (Past 12 Hours) Vital Signs Temp Pulse Resp BP Pulse Ox O2 Del Method 03/23/22 15:27 36.8 C 56 L 20 146/84 H 97 Room Air 03/23/22 07:22 36.6 C 51 L 20 149/71 H 96 Room Air Laboratory Results [facility] 03/23/22 06:37 Creatinine 0.79 Medications Administered Current Inpatient Medications Amlodipine Besylate (Amlodipine Besylate 5 Mg Tab) 10 mg PO QAM [facility] Stop: 04/19/22 08:59 Last Admin: 03/23/22 09:18 Dose: 10 mg Calamine/Phenol (Menthol-Zinc Oxide 360 Appln/120 Gm Tube) 1 appln EXT BID [facility] Stop: 04/10/22 08:59 Last Admin: 03/23/22 09:19 Dose: 1 appln Hydralazine HCl (Hydralazine Hcl 20 Mg/Ml Vial) 5 mg IV Q6H PRN PRN Reason: systolic bp > 160 Stop: 04/14/22 16:44 Ertapenem 1,000 mg/ Syringe 10 mls @ 2 mls/min IV Q24H [facility] Stop: 04/07/22 14:59 Last Admin: 03/23/22 16:29 Dose: 2 mls/min Vancomycin HCl 1,250 mg/ (Sodium Chloride) 275 mls @ 200 mls/hr IV Q12H [facility]; Protocol Stop: 04/29/22 00:00 Last Infusion: 03/23/22 15:02 Dose: Infused Insulin Aspart (Insulin Aspart Per Unit) 0 units SC ACHS [facility] Stop: 03/30/22 07:29 Last Admin: 03/23/22 13:13 Dose: 7 units Insulin Glargine (Lantus Per Unit Charge) 15 units SQ HS [facility] Stop: 04/06/22 20:59 Last Admin: 03/22/22 21:14 Dose: 15 units Losartan Potassium (Losartan Potassium 50 Mg Tab) 100 mg PO QAM [facility] Stop: 04/20/22 09:59 Last Admin: 03/23/22 09:19 Dose: 100 mg Miscellaneous Information (Vancomycin Consult Active) 1 each N/A UD PRN PRN Reason: Consult Stop: 04/11/22 17:42 Rosuvastatin Calcium (Rosuvastatin Calcium 10 Mg Tab) 10 mg PO QPM [facility] Stop: 04/13/22 20:59 Last Admin: 03/22/22 20:29 Dose: 10 mg
[2022-03-23] MEDS: ROSUVASTATIN CALCIUM 10 MG TAB PO SCH (20:22)
[2022-03-23] MEDS: LANTUS PER UNIT CHARGE SQ SCH (21:34)
[2022-03-24] MEDS: LOSARTAN POTASSIUM 50 MG TAB PO SCH (07:35)
[2022-03-24] MEDS: amLODIPine BESYLATE 5 MG TAB PO SCH (07:35)
[2022-03-24] MEDS: MENTHOL-ZINC OXIDE 360 APPLN/120 GM TUBE EXT SCH ×2 (07:36→21:54)
[2022-03-24] MEDS ORDERED: hydrALAZINE HCL 20 MG/ML VIAL IV STA (08:38)
[2022-03-24] MEDS: INSULIN ASPART PER UNIT SC SCH ×4 (09:00→21:51)
[2022-03-24] MEDS: hydroCHLOROthiazide 25 MG TAB PO SCH (09:16)
[2022-03-24] MEDS: VANCOMYCIN HCL 1,250 MG in SODIUM CHLORIDE 0.9% 250 ML IV SCH (12:54)
[2022-03-24] MEDS: ERTAPENEM SODIUM 1,000 MG in SYRINGE 0 ML IV SCH (14:30)
--- NOTE | 2022-03-24 17:08 | Hospitalist Progress Note ---
Date of Service March 24, 2022 Assessment & Plan (1) Diabetic foot infection: (2) Diabetic foot ulcer associated with type 2 diabetes mellitus: (3) Osteomyelitis of right foot: (4) Peripheral arterial disease: (5) Post-operative state: (6) Stroke: (7) Diabetes mellitus: (8) Neuropathy: (9) HTN (hypertension): Plan Diabetic foot infection, Osteomyelitis Status post amputation of the right fourth and fifth toes No overt sepsis POA. 02/18: I&D right foot, partial excision of fifth ray right foot, delayed primary closure right foot wound. By Dr. Gianluca Jackson. 02/21: Right foot debridement, wound VAC application. By Dr. Gianluca Jackson. 02/25: Right leg arteriogram, lithotripsy of proximal popliteal artery, mechanical closure of left femoral artery. By Dr. Howard Ocampo. Maintenance Parts Technician on board, wound VAC changes Thursday. 02/18 wound culture: Reviewed; await 02/24 pathology results. 02/18 pathology results suggestive of focal acute osteomyelitis in amputated right fifth toe. 02/17 blood culture: Negative 02/27: Amputation Right 4th Toe by Dr. Jackson 03/07: plant custodian placed new dressings. Per picture and documentation, wound bed is healing with some slough present. Vac in place ID evaluated 02/24 03/19 Minimal pain on the wound site (+) Lower leg edema, Lasix 20mg IV today Monitor for now As needed Lasix Continue vancomycin and ertapenem for 6 weeks from the date of his last surgery (February 27, 2022) Foot infection healing gradually Continue probiotics for reported loose stools from abx--these have reported resolved as of 03/[address] Jackson who removed wound vac on 03/22 Wounc vac has been put back in place by WOCHARLES on 03/24 and he will go home with wound vac in place. HYPERTENSION improved BP control after adding losartan 100mg daily. Cont this and amlodpine 10mg. Cont metoprolol Cont with low sodium diet. 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 Focal area of high-grade stenosis of the proximal inferior mesenteric artery. Multifocal stenosis within the bilateral lower extremity arterial systems. Distal right posterior tibial artery, distal left anterior tibial artery, and distal bilateral peroneal arteries are likely occluded. Vascular team on board, status post intervention on 02/25 [see above] No significant pain involving the extremities or the abdomen h/o CVA: cont medical management DMII: chronic, current inpatient glucose at goal , cont current management. A1C in September 15 reflects good control DVT prophylaxis:Heparin sq Full code Disposition: Awaiting placement to SNF vs may go home with HH. Will ensure appropriate line in place in preparation for discharge. If home with HH will need to switch to dapto to finish the course for once daily dosing of abx. [facility] Admission and Anticipated Discharge Date Admission Date: February 17, 2022 Subjective Follow-up for diabetic foot infection, osteomyelitis of the right foot, etc. No issues today Denies pain, no changes Wound vac to be replaced today by wound care nurse. Pt feels he will be able to go home and transfer without putting pressure on the area. Considering home with home health. Review of Systems Review of Systems: All systems were reviewed and negative except as indicated on subjective above. Physical Exam Physical Exam: CONSTITUTIONAL: WNWD, vitals as above, generally well- appearing, NAD EYES: normal conjunctivae, no scleral icterus ENT: external ear and nose normal, MMM NECK: trachea midline RESPIRATORY: clear to auscultation bilaterally, no crackles, rales or wheezes, normal respiratory effort CARDIOVASCULAR: regular rate and rhythm, S1 and 2 heard without murmurs, gallops or rubs, no JVD, no peripheral edema CHEST: inspection of chest was normal GASTROINTESTINAL: soft, nontender, ND, no guarding MUSCULOSKELETAL: strength 5/5 throughout, head is normocephalic and atraumatic SKIN: warm and dry, dressing around right foot that is c/d/i NEUROLOGIC: CN 2-12 grossly intact, no sensory deficit, normal cognition, normal speech, no tremor PSYCHIATRIC: alert cooperative and oriented to person, place and time. Euthymic mood, makes good eye contact, language grossly intact, recent and remote memory grossly intact. Results & Data Results & Data ([facility]) Vital Signs (Past 12 Hours) Vital Signs Temp Pulse Pulse Resp BP BP Pulse Ox 03/24/22 15:25 36.6 C 58 L 16 124/62 98 03/24/22 08:30 03/24/22 09:15 56 L 16 174/73 H 99 03/24/22 07:12 36.6 C 59 L 16 187/84 H 97 O2 Del Method 03/24/22 15:25 Room Air 03/24/22 08:30 Room Air 03/24/22 09:15 Room Air 03/24/22 07:12 Room Air Medications Administered Current Inpatient Medications Amlodipine Besylate (Amlodipine Besylate 5 Mg Tab) 10 mg PO QAM [facility] Stop: 04/19/22 08:59 Last Admin: 03/24/22 07:35 Dose: 10 mg Calamine/Phenol (Menthol-Zinc Oxide 360 Appln/120 Gm Tube) 1 appln EXT BID [facility] Stop: 04/10/22 08:59 Last Admin: 03/24/22 07:36 Dose: 1 appln Hydrochlorothiazide (Hydrochlorothiazide 25 Mg Tab) 12.5 mg PO QAM [facility] Stop: 04/23/22 08:59 Last Admin: 03/24/22 09:16 Dose: 12.5 mg Ertapenem 1,000 mg/ Syringe 10 mls @ 2 mls/min IV Q24H [facility] Stop: 04/07/22 14:59 Last Admin: 03/24/22 14:30 Dose: 2 mls/min Vancomycin HCl 1,250 mg/ (Sodium Chloride) 275 mls @ 200 mls/hr IV Q12H [facility]; Protocol Stop: 04/29/22 00:00 Last Infusion: 03/24/22 14:27 Dose: Infused Insulin Aspart (Insulin Aspart Per Unit) 0 units SC ACHS [facility] Stop: 03/30/22 07:29 Last Admin: 03/24/22 12:46 Dose: 7 units Insulin Glargine (Lantus Per Unit Charge) 15 units SQ HS [facility] Stop: 04/06/22 20:59 Last Admin: 03/23/22 21:34 Dose: 15 units Losartan Potassium (Losartan Potassium 50 Mg Tab) 100 mg PO QAM [facility] Stop: 04/20/22 09:59 Last Admin: 03/24/22 07:35 Dose: 100 mg Miscellaneous Information (Vancomycin Consult Active) 1 each N/A UD PRN PRN Reason: Consult Stop: 04/11/22 17:42 Rosuvastatin Calcium (Rosuvastatin Calcium 10 Mg Tab) 10 mg PO QPM [facility] Stop: 04/13/22 20:59 Last Admin: 03/23/22 20:22 Dose: 10 mg
[2022-03-24] MEDS: LANTUS PER UNIT CHARGE SQ SCH (21:51)
[2022-03-24] MEDS: ROSUVASTATIN CALCIUM 10 MG TAB PO SCH (21:53)
[2022-03-25] MEDS: VANCOMYCIN HCL 1,250 MG in SODIUM CHLORIDE 0.9% 250 ML IV SCH ×2 (00:19→12:16)
[2022-03-25 08:55] LABS: Creatinine Clr Calc Pharmacy 106.1 ml/min; Est GFR (African American) 112.2 ml/min; Est GFR (Non-African American) 96.8 ml/min
[2022-03-25] MEDS: hydroCHLOROthiazide 25 MG TAB PO SCH (09:08)
[2022-03-25] MEDS: INSULIN ASPART PER UNIT SC SCH ×4 (09:08→21:49)
[2022-03-25] MEDS: amLODIPine BESYLATE 5 MG TAB PO SCH (09:09)
[2022-03-25] MEDS: LOSARTAN POTASSIUM 50 MG TAB PO SCH (09:09)
[2022-03-25] MEDS: MENTHOL-ZINC OXIDE 360 APPLN/120 GM TUBE EXT SCH ×2 (09:09→20:34)
--- NOTE | 2022-03-25 14:38 | Hospitalist Progress Note ---
Date of Service March 25, 2022 Assessment & Plan (1) Diabetic foot infection: (2) Diabetic foot ulcer associated with type 2 diabetes mellitus: (3) Osteomyelitis of right foot: (4) Peripheral arterial disease: (5) Post-operative state: (6) Stroke: (7) Diabetes mellitus: (8) Neuropathy: (9) HTN (hypertension): Plan Diabetic foot infection, Osteomyelitis Status post amputation of the right fourth and fifth toes No overt sepsis POA. 02/18: I&D right foot, partial excision of fifth ray right foot, delayed primary closure right foot wound. By Dr. Gianluca Jackson. 02/21: Right foot debridement, wound VAC application. By Dr. Gianluca Jackson. 02/25: Right leg arteriogram, lithotripsy of proximal popliteal artery, mechanical closure of left femoral artery. By Dr. Howard Ocampo. Patent Clerk on board, wound VAC changes Thursday. 02/18 wound culture: Reviewed; await 02/24 pathology results. 02/18 pathology results suggestive of focal acute osteomyelitis in amputated right fifth toe. 02/17 blood culture: Negative 02/27: Amputation Right 4th Toe by Dr. Jackson 03/07: tractor operator laser leveling placed new dressings. Per picture and documentation, wound bed is healing with some slough present. Vac in place ID evaluated 02/24 03/19 Minimal pain on the wound site (+) Lower leg edema, Lasix 20mg IV today Monitor for now As needed Lasix Continue vancomycin and ertapenem for 6 weeks from the date of his last surgery (February 27, 2022) Foot infection healing gradually Continue probiotics for reported loose stools from abx--these have reported resolved as of 03/[address] Jackson who removed wound vac on 03/22 Wound vac has been put back in place by WOCHARLES on 03/24 and he will go home with wound vac in place. software manager currently in the process of setting up home health Ordered US-guided line, but they would like to wait until the decision to go home vs facility has been made-placement deferred until 03/26 HYPERTENSION improved BP control after adding losartan 100mg daily and HCTZ daily. Cont this and amlodipine 10mg. Cont metoprolol Cont with low sodium diet. 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 Focal area of high-grade stenosis of the proximal inferior mesenteric artery. Multifocal stenosis within the bilateral lower extremity arterial systems. Distal right posterior tibial artery, distal left anterior tibial artery, and distal bilateral peroneal arteries are likely occluded. Vascular team on board, status post intervention on 02/25 [see above] No significant pain involving the extremities or the abdomen h/o CVA: cont medical management DMII: chronic, current inpatient glucose at goal , cont current management. A1C in September 15 reflects good control DVT prophylaxis:Heparin sq Full code Disposition: Awaiting placement to SNF vs may go home with HH. Will ensure appropriate line in place in preparation for discharge. If home with HH will need to switch to dapto to finish the course for once daily dosing of abx. Genia Kaplan [facility] Ad[facility] and Anticipated Discharge Date Admission Date: February 17, 2022 Subjective Follow-up for diabetic foot infection, osteomyelitis of the right foot, etc. No issues today Denies pain, no changes Wound vac in place ambulating without issues tolerating PO afebrile Review of Systems Review of Systems: All systems were reviewed and negative except as indicated on subjective above. Physical Exam Physical Exam: CONSTITUTIONAL: WNWD, vitals as above, generally well- appearing, NAD EYES: normal conjunctivae, no scleral icterus ENT: external ear and nose normal, MMM NECK: trachea midline RESPIRATORY: clear to auscultation bilaterally, no crackles, rales or wheezes, normal respiratory effort CARDIOVASCULAR: regular rate and rhythm, S1 and 2 heard without murmurs, gallops or rubs, no JVD, no peripheral edema CHEST: inspection of chest was normal GASTROINTESTINAL: soft, nontender, ND, no guarding MUSCULOSKELETAL: strength 5/5 throughout, head is normocephalic and atraumatic SKIN: warm and dry, dressing around right foot that is c/d/i NEUROLOGIC: CN 2-12 grossly intact, no sensory deficit, normal cognition, normal speech, no tremor PSYCHIATRIC: alert cooperative and oriented to person, place and time. Euthymic mood, makes good eye contact, language grossly intact, recent and remote memory grossly intact. Results & Data Results & Data ([facility]) Vital Signs (Past 12 Hours) Vital Signs Temp Pulse Resp BP Pulse Ox O2 Del Method 03/25/22 07:59 36.4 C L 50 L 18 149/77 H 100 Room Air Laboratory Results [facility] 03/25/22 08:04 Creatinine 0.82 Medications Administered Current Inpatient Medications Amlodipine Besylate (Amlodipine Besylate 5 Mg Tab) 10 mg PO QAM [facility] Stop: 04/19/22 08:59 Last Admin: 03/25/22 09:09 Dose: 10 mg Calamine/Phenol (Menthol-Zinc Oxide 360 Appln/120 Gm Tube) 1 appln EXT BID [facility] Stop: 04/10/22 08:59 Last Admin: 03/25/22 09:09 Dose: 1 appln Hydrochlorothiazide (Hydrochlorothiazide 25 Mg Tab) 12.5 mg PO QAM [facility] Stop: 04/23/22 08:59 Last Admin: 03/25/22 09:08 Dose: 12.5 mg Ertapenem 1,000 mg/ Syringe 10 mls @ 2 mls/min IV Q24H [facility] Stop: 04/07/22 14:59 Last Admin: 03/24/22 14:30 Dose: 2 mls/min Vancomycin HCl 1,250 mg/ (Sodium Chloride) 275 mls @ 200 mls/hr IV Q12H [facility]; Protocol Stop: 04/29/22 00:00 Last Infusion: 03/25/22 13:57 Dose: Infused Insulin Aspart (Insulin Aspart Per Unit) 0 units SC ACHS [facility] Stop: 03/30/22 07:29 Last Admin: 03/25/22 13:18 Dose: 4 units Insulin Glargine (Lantus Per Unit Charge) 15 units SQ HS [facility] Stop: 04/06/22 20:59 Last Admin: 03/24/22 21:51 Dose: 15 units Losartan Potassium (Losartan Potassium 50 Mg Tab) 100 mg PO QAM [facility] Stop: 04/20/22 09:59 Last Admin: 03/25/22 09:09 Dose: 100 mg Miscellaneous Information (Vancomycin Consult Active) 1 each N/A UD PRN PRN Reason: Consult Stop: 04/11/22 17:42 Rosuvastatin Calcium (Rosuvastatin Calcium 10 Mg Tab) 10 mg PO QPM [facility] Stop: 04/13/22 20:59 Last Admin: 03/24/22 21:53 Dose: 10 mg
[2022-03-25] MEDS: ERTAPENEM SODIUM 1,000 MG in SYRINGE 0 ML IV SCH (15:33)
[2022-03-25] MEDS: ROSUVASTATIN CALCIUM 10 MG TAB PO SCH (20:34)
[2022-03-25] MEDS: LANTUS PER UNIT CHARGE SQ SCH (21:47)
[2022-03-26] MEDS: VANCOMYCIN HCL 1,250 MG in SODIUM CHLORIDE 0.9% 250 ML IV SCH ×3 (00:09→23:31)
--- NOTE | 2022-03-26 08:07 | Pharmacy Report ---
Pharmacy PK ABX Note - Date of Service March 26, 2022 - Assessment and Plan Assessment 61 year old M receiving Vancomycin and Ertapenem for treatment of bone and joint infection. 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 Patient was initially being treated with daptomycin/ertapenem. However, daptomycin was switched to vancomycin d/t difficulty finding placement with daptomycin. ID consulted. Renal function stable. 03/26 * Random level this morning is 24.6 mcg/ml - 5.5 hrs level. This is predicted to achieve a steady state AUC/GRACIE 519mg/L.hr which is therapeutic 03/23 * Trough today remains stable and associated with therapeutic AUC. Continue vancomycin 03/19 * Plan for 6 weeks of antibiotics from 02/27 * Trough today predicts therapeutic AUC at steady state, will continue current dosing * SCr 0.82 --> 0.96 this morning- continue to monitor Plan Vancomycin * Current regimen: 1250 mg IV every 12 hours - Continue current dosing * Monitor renal function * Trough/random level in 5-7 days, or sooner if change in clinical status or renal function occurs Pharmacy will continue to follow and will adjust dose/frequency as necessary. Thank you. Pharmacy has transitioned to AUC monitoring for vancomycin. AUC/GRACIE is the preferred PK/PD target and is associated with decreased risk of nephrotoxicity compared to traditional trough targets.
[2022-03-26] MEDS: hydroCHLOROthiazide 25 MG TAB PO SCH (08:30)
[2022-03-26] MEDS: LOSARTAN POTASSIUM 50 MG TAB PO SCH (08:30)
[2022-03-26] MEDS: amLODIPine BESYLATE 5 MG TAB PO SCH (08:30)
[2022-03-26] MEDS: MENTHOL-ZINC OXIDE 360 APPLN/120 GM TUBE EXT SCH ×2 (08:32→21:25)
[2022-03-26] MEDS: INSULIN ASPART PER UNIT SC SCH ×4 (09:03→21:23)
[2022-03-26] MEDS: ERTAPENEM SODIUM 1,000 MG in SYRINGE 0 ML IV SCH (16:01)
--- NOTE | 2022-03-26 16:47 | Hospitalist Progress Note ---
Date of Service March 26, 2022 Assessment & Plan (1) Diabetic foot infection: (2) Diabetic foot ulcer associated with type 2 diabetes mellitus: (3) Osteomyelitis of right foot: (4) Peripheral arterial disease: (5) Post-operative state: (6) Stroke: (7) Diabetes mellitus: (8) Neuropathy: (9) HTN (hypertension): Plan Diabetic foot infection, Osteomyelitis Status post amputation of the right fourth and fifth toes No overt sepsis POA. 02/18: I&D right foot, partial excision of fifth ray right foot, delayed primary closure right foot wound. By Dr. Gianluca Jackson. 02/21: Right foot debridement, wound VAC application. By Dr. Gianluca Jackson. 02/25: Right leg arteriogram, lithotripsy of proximal popliteal artery, mechanical closure of left femoral artery. By Dr. Howard Ocampo. Acls Specialist on board, wound VAC changes Thursday. 02/18 wound culture: Reviewed; await 02/24 pathology results. 02/18 pathology results suggestive of focal acute osteomyelitis in amputated right fifth toe. 02/17 blood culture: Negative 02/27: Amputation Right 4th Toe by Dr. Jackson 03/07: medical equipment repair technician placed new dressings. Per picture and documentation, wound bed is healing with some slough present. Vac in place ID evaluated 02/24 Continue vancomycin and ertapenem for 6 weeks from the date of his last surgery (February 27, 2022) Wound care per Dr. Jackson who removed wound vac on 03/22 Wound vac has been put back in place by WOCN on 03/24 and he will go home with wound vac in place. florist manager currently in the process of setting up home health Ordered US-guided line, but they would like to wait until the decision to go home vs facility has been made-placement deferred until 03/26 03/26 doing well overall continue Vanco + Ertapenem IV CM on board HYPERTENSION improved BP control after adding losartan 100mg daily and HCTZ daily. Cont this and amlodipine 10mg. Cont metoprolol 03/26 BP improving Peripheral Arterial Occlusion 02/18 aorta with runoff CTA: No significant stenosis or dissection within the aorta or iliac arteries. Focal area of high-grade stenosis of the proximal inferior mesenteric artery. Multifocal stenosis within the bilateral lower extremity arterial systems. Distal right posterior tibial artery, distal left anterior tibial artery, and distal bilateral peroneal arteries are likely occluded. Vascular team on board, status post intervention on 02/25 [see above] No significant pain involving the extremities or the abdomen h/o CVA: cont medical management DM II: chronic, current inpatient glucose at goal , cont current management. A1C in September 15 reflects good control. BSG 103-144 DVT prophylaxis:Heparin sq Full code Disposition: Awaiting placement to SNF vs may go home with HH. Will ensure appropriate line in place in preparation for discharge. If home with HH will need to switch to dapto to finish the course for once daily dosing of abx. Admission and Anticipated Discharge Date Admission Date: February 17, 2022 Subjective ff up for DM foot infection, etc seen resting in bed, comfortable states he feels fine overall has 1 soft stool/day, no abdominal pain, nausea denies pain on the foot/leg no other symptoms Review of Systems Review of Systems: all noted and negative except for above Physical Exam Physical Exam: General- oriented x 3, not in distress, speaks in sentences with no effort or accessory muscle use Eyes- anicteric Neck- no JVD Lungs- clear breath sounds bilaterally, no crackles, no wheezing Heart- normal rate, regular rhythm; no murmurs Abdomen- normal bowel sounds, nondistended, soft, no tenderness Extremities- no pretibial edema, no calf tenderness R foot: wound vac in place faint erythema surrounding wound no tenderness no bleeding/discharge Neuro- alert, oriented x 3; no gross focal neurologic deficits Skin- warm & dry Results & Data Results & Data ([facility]) Vital Signs (Past 12 Hours) Vital Signs Temp Pulse Resp BP Pulse Ox O2 Del Method 03/26/22 14:16 36.7 C 62 17 135/68 99 Room Air 03/26/22 07:52 36.8 C 56 L 17 133/57 L 98 Room Air all noted and reviewed including below
[2022-03-26] MEDS: LANTUS PER UNIT CHARGE SQ SCH (21:23)
[2022-03-26] MEDS: ROSUVASTATIN CALCIUM 10 MG TAB PO SCH (21:24)
[2022-03-27 07:11] LABS: Creatinine Clr Calc Pharmacy 106.1 ml/min; Est GFR (African American) 112.2 ml/min; Est GFR (Non-African American) 96.8 ml/min
[2022-03-27] MEDS: INSULIN ASPART PER UNIT SC SCH ×4 (09:01→20:56)
[2022-03-27] MEDS: amLODIPine BESYLATE 5 MG TAB PO SCH (09:06)
[2022-03-27] MEDS: LOSARTAN POTASSIUM 50 MG TAB PO SCH (09:06)
[2022-03-27] MEDS: hydroCHLOROthiazide 25 MG TAB PO SCH (09:06)
[2022-03-27] MEDS: MENTHOL-ZINC OXIDE 360 APPLN/120 GM TUBE EXT SCH ×2 (09:07→19:28)
[2022-03-27] MEDS: VANCOMYCIN HCL 1,250 MG in SODIUM CHLORIDE 0.9% 250 ML IV SCH (12:00)
[2022-03-27] MEDS: ERTAPENEM SODIUM 1,000 MG in SYRINGE 0 ML IV SCH (15:49)
--- NOTE | 2022-03-27 17:58 | Hospitalist Progress Note ---
Date of Service March 27, 2022 Assessment & Plan (1) Diabetic foot infection: (2) Diabetic foot ulcer associated with type 2 diabetes mellitus: (3) Osteomyelitis of right foot: (4) Peripheral arterial disease: (5) Post-operative state: (6) Stroke: (7) Diabetes mellitus: (8) Neuropathy: (9) HTN (hypertension): Plan Diabetic foot infection, Osteomyelitis Status post amputation of the right fourth and fifth toes No overt sepsis POA. 02/18: I&D right foot, partial excision of fifth ray right foot, delayed primary closure right foot wound. By Dr. Gianluca Jackson. 02/21: Right foot debridement, wound VAC application. By Dr. Gianluca Jackson. 02/25: Right leg arteriogram, lithotripsy of proximal popliteal artery, mechanical closure of left femoral artery. By Dr. Howard Ocampo. [employer] Certified Concierge on board, wound VAC changes Thursday. 02/18 wound culture: Reviewed; await 02/24 pathology results. 02/18 pathology results suggestive of focal acute osteomyelitis in amputated right fifth toe. 02/17 blood culture: Negative 02/27: Amputation Right 4th Toe by Dr. Jackson 03/07: barrel waterer placed new dressings. Per picture and documentation, wound bed is healing with some slough present. Vac in place ID evaluated 02/24 Continue vancomycin and ertapenem for 6 weeks from the date of his last surgery (February 27, 2022) Wound care per Dr. Jackson who removed wound vac on 03/22 Wound vac has been put back in place by [facility] on 03/24 and he will go home with wound vac in place. wind operations manager currently in the process of setting up home health Ordered US-guided line, but they would like to wait until the decision to go h [facility] facility has been made-placement deferred until 03/26 03/26 doing well overall continue Vanco + Ertapenem IV CM on board 03/27 Remained stable Wound VAC in place Continue vancomycin plus ertapenem, to complete 6 weeks from February 27, 2022 wind operations manager working on arranging home health services patient HYPERTENSION improved BP control after adding losartan 100mg daily and HCTZ daily. Cont this and amlodipine 10mg. Cont metoprolol 03/27 BP improving Peripheral Arterial Occlusion 02/18 aorta with runoff CTA: No significant stenosis or dissection within the aorta or iliac arteries. Focal area of high-grade stenosis of the proximal inferior mesenteric artery. Multifocal stenosis within the bilateral lower extremity arterial systems. Distal right posterior tibial artery, distal left anterior tibial artery, and distal bilateral peroneal arteries are likely occluded. Vascular team on board, status post intervention on 02/25 [see above] No significant pain involving the extremities or the abdomen h/o CVA: cont medical management DM II: chronic, current inpatient glucose at goal , cont current management. A1C in September 15 reflects good control. BSG 103-144 DVT prophylaxis:Heparin sq Full code Disposition: Awaiting placement to SNF vs may go home with HH. Will ensure appropriate line in place in preparation for discharge. If home with HH will need to switch to dapto to finish the course for once daily dosing of abx. Admission and Anticipated Discharge Date Admission Date: February 17, 2022 Subjective Follow-up for right foot diabetic foot infection, etc. Seen resting in bed, sleeping but easily awakened States he feels fine overall Denies pain in the right lower extremity No other symptoms Review of Systems Review of Systems: all noted and negative except for above Physical Exam Physical Exam: General- oriented x 3, not in distress, speaks in sentences with no effort or accessory muscle use Eyes- anicteric Neck- no JVD Lungs- clear breath sounds bilaterally, no crackles, no wheezing bilaterally Heart- normal rate, regular rhythm; no murmurs Abdomen- normal bowel sounds, nondistended, soft, nontender Extremities- no pretibial edema, no calf tenderness Right foot: Wound VAC in place, no bleeding or discharge No tenderness faint erythema surrounding the wound site Neuro- alert, oriented x 3; no gross focal neurologic deficits Skin- warm & dry Results & Data Results & Data ([facility]) Vital Signs (Past 12 Hours) Vital Signs Temp Pulse Pulse Resp BP Pulse Ox O2 Del Method 03/27/22 15:55 36.6 C 57 L 16 131/74 96 Room Air 03/27/22 09:00 Room Air 03/27/22 09:00 60 118/63 03/27/22 06:52 36.6 C 56 L 18 169/75 H 95 Room Air all noted and reviewed including below
[2022-03-27] MEDS: ROSUVASTATIN CALCIUM 10 MG TAB PO SCH (19:27)
[2022-03-27] MEDS: LANTUS PER UNIT CHARGE SQ SCH (21:12)
--- NOTE | 2022-03-27 21:22 | Orthopedic Progress Note ---
Date of Service March 27, 2022 Assessment & Plan (1) Diabetic foot ulcer associated with type 2 diabetes mellitus: Plan: Patient seen, evaluated, and treated. I did discuss application of skin graft at today's visit. Patient scheduled for graft placement 03/28/22. NPO after 8am. I reviewed procedure in detail as well as postoperative recovery. I discussed expectations and patient's current weightbearing status. All questions answered. I have discussed procedure in detail as well as postoperative recovery. All potential risks, benefits, complications, alternatives, rehab, potential for incomplete relief of symptoms, need for further surgery, DVT, PE, , persistent pain, swelling, scarring, weakness, neurovascular, wound complications and potential for amputations were discussed with patient. Unwanted outcomes such as, but not limited to were reviewed including under correction, overcorrection, return of deformity, infection. All questions were answered. Patient has decided to proceed with procedure as indicated. Admission and Anticipated Discharge Date Admission Date: February 17, 2022 Subjective Patient seen at bedside. Denies pain in the right lower extremity. No other symptoms Review of Systems Review of Systems: All systems reviewed & are unremarkable except as noted in HPI & below Physical Exam Physical Exam: Dressing intact. Wound vac intact and running. Constitutional: WD/WN, vitals as above + ill appearing, + disheveled and cooperative Eyes: PERRL, conjunctivae normal, anicteric sclerae ENMT: external ear and nose normal, oropharynx normal Neck: trachea midline, no thyromegaly Respiratory: normal respiratory effort Cardiovascular: Rate/Rhythm: regular rate and regular rhythm Skin: Wound Vac intact and running Psychiatric: Orientation: alert and oriented x 3 Results & Data ([facility]) Vital Signs (Past 12 Hours) Vital Signs Temp Pulse Resp BP Pulse Ox O2 Del Method 03/27/22 19:30 36.7 C 60 18 136/81 98 Room Air 03/27/22 15:55 36.6 C 57 L 16 131/74 96 Room Air
[2022-03-28] MEDS: VANCOMYCIN HCL 1,250 MG in SODIUM CHLORIDE 0.9% 250 ML IV SCH ×3 (00:42→23:59)
[2022-03-28] MEDS: INSULIN ASPART PER UNIT SC SCH ×4 (08:11→21:56)
[2022-03-28] MEDS: MENTHOL-ZINC OXIDE 360 APPLN/120 GM TUBE EXT SCH ×2 (10:35→21:57)
[2022-03-28] MEDS: hydroCHLOROthiazide 25 MG TAB PO SCH (10:35)
[2022-03-28] MEDS: amLODIPine BESYLATE 5 MG TAB PO SCH (10:35)
[2022-03-28] MEDS: LOSARTAN POTASSIUM 50 MG TAB PO SCH (10:35)
[2022-03-28] MEDS: ERTAPENEM SODIUM 1,000 MG in SYRINGE 0 ML IV SCH (15:12)
[2022-03-28] MEDS ORDERED: ROCURONIUM BROMIDE 10 MG/ML 5 ML VIAL IV ONE (16:33)
[2022-03-28] MEDS ORDERED: MIDAZOLAM HCL 1 MG/ML 2ML VIAL ONE (16:33)
[2022-03-28] MEDS ORDERED: LIDOCAINE 2% MPF LOCAL 5 ML VIAL INFIL ONE (16:33)
[2022-03-28] MEDS ORDERED: fentaNYL citrate 100 MCG/2 ML VIAL ONE (16:33)
[2022-03-28] MEDS ORDERED: PROPOFOL IV EMULSION 10 MG/ML 20 ML VIAL IV ONE ×2 (16:33→19:09)
[2022-03-28] MEDS ORDERED: ONDANSETRON INJ 2 MG/ML 2 ML VIAL ONE (16:37)
--- NOTE | 2022-03-28 17:01 | Anesthesiology Consultation ---
Date of Service March 28, 2022 Assessment & Plan (1) Encounter for pre-operative examination: Chart Review Chart Review: Acceptable Risk for Surgery and Patient NOT seen in Pre Admission Testing Consults Requested none History Surgery Operation Date: 02/18/22 00:05 Proposed Procedures p Incision and Drainage Extremity - Gianluca Jackson DPM, MS Operation Date: 02/21/22 18:00 Proposed Procedures p Right Foot Debridement, Possible Wound Vac Application(Right) - Gianluca Jackson DPM, MS Operation Date: 02/25/22 10:20 Proposed Procedures p Right Leg Angiogram with Intervention - Howard Ocampo MD Operation Date: 02/27/22 14:00 Proposed Procedures p Amputation Right 4th Toe - Gianluca Jackson DPM, MS Operation Date: 03/28/22 08:00 Proposed Procedures p Application of Skin Graft with Possible Ostrander Right Forefoot, Dermatome Possible Theraskin - Gianluca Jackson DPM, MS Height/Weight Height: 5 ft 5 in Weight: 98.656 kg Allergies Allergy/AdvReac Type Severity Reaction Status Date / Time aloe vera Allergy Unknown Unknown Verified 02/17/22 21:01 Medications Home Medications Medication Instructions Recorded Confirmed Last Taken ammonium lactate 12 % lotion 1 applic topical UD PRN dry skin 02/17/22 02/17/22 Unknown on legs clopidogrel 75 mg tablet 75 mg PO QAM 02/17/22 02/17/22 02/17/22 dutasteride 0.5 mg capsule 0.5 mg PO QAM 02/17/22 02/17/22 02/17/22 empagliflozin 10 mg tablet 10 mg PO QAM 02/17/22 02/17/22 02/17/22 (Jardiance) esomeprazole magnesium 20 mg 20 mg PO DAILYBB 02/17/22 02/17/22 Unknown granules delayed release for susp mecobalamin 1,000 mcg-folic acid 1 tab PO QAM 02/17/22 02/17/22 02/17/22 200 mcg sublingual tablet (Opurity) metoprolol tartrate 25 mg tablet 25 mg PO QAM 02/17/22 02/17/22 02/17/22 olmesartan 40 mg tablet 40 mg PO QAM 02/17/22 02/17/22 02/17/22 pantoprazole 40 mg tablet,delayed 40 mg PO QAM 02/17/22 02/17/22 02/17/22 release rosuvastatin 10 mg tablet 10 mg PO QPM 02/17/22 02/17/22 02/16/22 Active Medications Generic Name Dose Route Start Last Admin Trade Name Natalie PRN Reason Stop Dose Admin Amlodipine Besylate 10 mg 03/20/22 09:00 03/28/22 10:35 Amlodipine Besylate 5 Mg Tab PO 04/19/22 08:59 10 mg QAM HOANG Administration Calamine/Phenol 1 appln 03/11/22 09:00 03/28/22 10:35 Menthol-Zinc Oxide 360 Appln/120 Gm Tube EXT 04/10/22 08:59 1 appln BID HOANG Administration Hydrochlorothiazide 12.5 mg 03/24/22 09:00 03/28/22 10:35 Hydrochlorothiazide 25 Mg Tab PO 04/23/22 08:59 12.5 mg QAM HOANG Administration Ertapenem 1,000 mg/ Syringe 10 mls @ 2 mls/min 02/24/22 15:00 03/28/22 15:12 IV 04/10/22 14:59 2 mls/min Q24H HOANG Administration Vancomycin HCl 1,250 mg/ 275 mls @ 200 mls/hr 03/18/22 00:00 03/28/22 13:35 Sodium Chloride IV 04/10/22 00:00 Infused Q12H HOANG Infusion Protocol Insulin Aspart 0 units 02/28/22 07:30 03/28/22 12:23 Insulin Aspart Per Unit SC 03/30/22 07:29 Not Given ACHS [facility] Insulin Glargine 15 units 03/07/22 21:00 03/27/22 21:12 Lantus Per Unit Charge SQ 04/06/22 20:59 15 units HS HOANG Administration Losartan Potassium 100 mg 03/21/22 10:00 03/28/22 10:35 Losartan Potassium 50 Mg Tab PO 04/20/22 09:59 100 mg QAM HOANG Administration Rosuvastatin Calcium 10 mg 03/14/22 21:00 03/27/22 19:27 Rosuvastatin Calcium 10 Mg Tab PO 04/13/22 20:59 10 mg QPM HOANG Administration Past Medical History Medical History Diabetes mellitus Dyslipidemia GERD (gastroesophageal reflux disease) Neuropathy Obesity Osteomyelitis of right foot Peripheral arterial disease Stroke July 2020 Right upper extremity weakness Past Family History Family History Other Family history non-contributory Past Surgical History Past Surgical History Diabetic foot infection x right 02/18: I&D right foot, partial excision of fifth ray right foot, delayed primary closure right foot wound. By Dr. Gianluca Jackson. 02/21: Right foot debridement, wound VAC application. By Dr. Gianluca Jackson. 02/25: Right leg arteriogram, lithotripsy of proximal popliteal artery, mechanical closure of left femoral artery. By Dr. Howard Ocampo. Social History Smoking Status: Never smoker tobacco type: cigarettes Do You Dip or Chew Tobacco: No Smoking End Date: "one and a half years ago" Hx Alcohol Use: No Hx Substance Use: No substance use type: does not use Physical Exam Vital Signs Last Vital Signs Temp 36.7 C 03/28/22 14:52 Pulse 67 03/28/22 14:52 Resp 18 03/28/22 14:52 BP 148/76 H 03/28/22 14:52 Pulse Ox 97 03/28/22 14:52 O2 Del Method 03/28/22 14:52 O2 Flow Rate 2 02/27/22 18:50 Testing Laboratory Results 03/21/22 06:38 03/27/22 05:45 02/18/22 01:00 Gram Stain - Final Foot,Right Aerobic and Anaerobic Culture - Final Staph aureus MRSA Veillonella species Peptoniphilus asaccharolyticus 02/18/22 01:00 Gram Stain - Final Toe,Right Fifth Aerobic and Anaerobic Culture - Final Staph aureus MRSA Veillonella species 02/17/22 19:22 Aerobic Blood Culture - Final Blood No growth in Aerobic bottle after 5 days. Anaerobic Blood Culture - Final No growth in Anaerobic bottle after 5 days. 02/17/22 19:37 Aerobic Blood Culture - Final Blood No growth in Aerobic bottle after 5 days. Anaerobic Blood Culture - Final No growth in Anaerobic bottle after 5 days. 02/17/22 19:20 Gram Stain - Final Foot Aerobic and Anaerobic Culture - Final Staph aureus MRSA Finegoldia magna 03/28/22 03/28/22 12:16 08:07 POC Glucose 112 H 115 H Electrocardiogram Date: 02/17/22 DICTATED BY:Yovanny Ortiz MD Test Reason : Blood Pressure : / mmHG Vent. Rate : 068 BPM Atrial Rate : 068 BPM P-R Int : 146 ms QRS Dur : 080 ms QT Int : 390 ms P-R-T Axes : -13 045 147 degrees QTc Int : 414 ms Normal sinus rhythm Anterior infarct T wave abnormality, consider anterior ischemia T wave abnormality, consider lateral ischemia Abnormal ECG No previous ECGs available Confirmed by Yovanny Ortiz ([id number]) on 02/19/2022 6:11:04 AM
[2022-03-28] MEDS ORDERED: LIDOCAINE 1%/EPINEPHRINE 1:100,000 50 ML VIAL ONE (17:45)
--- NOTE | 2022-03-28 17:52 | Hospitalist Progress Note ---
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 02/18: I&D right foot, partial excision of fifth ray right foot, delayed primary closure right foot wound. By Dr. Gianluca Jackson. 02/21: Right foot debridement, wound VAC application. By Dr. Gianluca Jackson. 02/25: Right leg arteriogram, lithotripsy of proximal popliteal artery, mechanical closure of left femoral artery. By Dr. Howard Ocampo. Fabricator [employer] on board, wound VAC changes Thursday. 02/18 wound culture: Reviewed; await 02/24 pathology results. 02/18 pathology results suggestive of focal acute osteomyelitis in amputated right fifth toe. 02/17 blood culture: Negative 02/27: Amputation Right 4th Toe by Dr. Jackson 03/07: sfdc developer placed new dressings. Per picture and documentation, wound bed is healing with some slough present. Vac in place ID evaluated 02/24 Continue vancomycin and ertapenem for 6 weeks from the date of his last surgery (February 27, 2022) Wound care per Dr. Jackson who removed wound vac on 03/22 Wound vac has been put back in place by [facility] on 03/24 and he will go home with wound vac in place. manager telecom currently in the process of setting up home health Ordered US-guided line, but they would like to wait until the decision to go h [facility] facility has been made-placement deferred until 03/26 03/26 doing well overall continue Vanco + Ertapenem IV CM on board 03/27 Remained stable Wound VAC in place Continue vancomycin plus ertapenem, to complete 6 weeks from February 27, 2022 manager telecom working on arranging home health services patient 03/28 Remained stable Wound VAC in place For skin graft placement today with Dr. Jackson Continue vancomycin plus ertapenem manager telecom on board HYPERTENSION improved BP control after adding losartan 100mg daily and HCTZ daily. Cont this and amlodipine 10mg. 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 Focal area of high-grade stenosis of the proximal inferior mesenteric artery. Multifocal stenosis within the bilateral lower extremity arterial systems. Distal right posterior tibial artery, distal left anterior tibial artery, and distal bilateral peroneal arteries are likely occluded. Vascular team on board, status post intervention on 02/25 [see above] No significant pain involving the extremities or the abdomen h/o CVA: cont medical management DM II: chronic, current inpatient glucose at goal , cont current management. A1C in September 15 reflects good control. BSG 103-144 DVT prophylaxis:Heparin sq Full code Disposition: Awaiting placement to SNF vs may go home with HH. Will ensure appropriate line in place in preparation for discharge. If home with HH will need to switch to dapto to finish the course for once daily dosing of abx. Admission and Anticipated Discharge Date Admission Date: February 17, 2022 Subjective Follow-up for diabetic foot infection right, etc. Seen resting in bed, not in distress Comfortable States he feels fine overall Denies foot or leg pain No other new symptom Review of Systems Review of Systems: all noted and negative except for above Physical Exam Physical Exam: General- oriented x 3, not in distress, speaks in sentences with no effort or accessory muscle use Eyes- anicteric Neck- no JVD Lungs- clear BS BL Heart- normal rate, regular rhythm; no murmurs Abdomen- normal bowel sounds, nondistended, soft, nontender Extremities- no pretibial edema, no calf tenderness Right foot: Wound VAC in place, no edema noted Tenderness, erythema Neuro- alert, oriented x 3; no gross focal neurologic deficits Skin- warm & dry Results & Data Results & Data ([facility]) Vital Signs (Past 12 Hours) Vital Signs Temp Pulse Resp BP BP Pulse Ox O2 Del Method 03/28/22 17:29 36.5 C 65 18 127/66 98 Room Air 03/28/22 14:52 36.7 C 67 18 148/76 H 97 Room Air 03/28/22 10:15 Room Air 03/28/22 10:34 61 125/66 98 Room Air 03/28/22 07:33 36.7 C 55 L 16 110/60 96 Room Air all noted and reviewed including below
[2022-03-28] MEDS ORDERED: fentaNYL citrate 100 MCG/2 ML VIAL IV PRN (18:03)
[2022-03-28] MEDS ORDERED: ePHEDrine sulfate 50 MG/ML AMP IV PRN (18:03)
[2022-03-28] MEDS ORDERED: ONDANSETRON INJ 2 MG/ML 2 ML VIAL IV PRN (18:03)
[2022-03-28] MEDS ORDERED: ATROPINE SULFATE 0.1 MG/ML 10ML SYR IV PRN (18:03)
[2022-03-28] MEDS ORDERED: MINERAL OIL LIGHT 10 ML BTL ONE (18:46)
--- NOTE | 2022-03-28 19:00 | History & Physical Bridge Note ---
Date of Service March 28, 2022 History & Physical Bridge Note I have examined the patient, reviewed the History & Physical and in the interval since the performance of the History & Physical I have noted the following changes of clinical significance: no changes noted
--- NOTE | 2022-03-28 20:03 | Post Operative Brief Note ---
Immediate Post Op Note v1 Date of Surgery March 28, 2022 Pre & Post Diagnosis Operation Date: 02/18/22 00:05 Pre-Op Diagnosis: 1.) Diabetic ulcers right foot 2.) Osteomyelitis right fifth proximal phalanx 3.) Gas gangrene Right foot Post-Op Diagnosis: 1.) Diabetic ulcers right foot 2.) Osteomyelitis right fifth proximal phalanx 3.) Gas gangrene Right foot Operation Date: 02/21/22 18:00 Pre-Op Diagnosis: DM FOOT INFX Post-Op Diagnosis: DM FOOT INFX Operation Date: 02/25/22 10:20 Pre-Op Diagnosis: Gangrene Right Foot Post-Op Diagnosis: Gangrene Right Foot Operation Date: 02/27/22 14:00 Pre-Op Diagnosis: DM FOOT INFX Post-Op Diagnosis: DM FOOT INFX Operation Date: 03/28/22 08:00 Pre-Op Diagnosis: Diabetic Foot Ulcer Post-Op Diagnosis: Diabetic Foot Ulcer I identified the patient and participated in the time-out.: Yes Procedure Operation Date: 02/18/22 00:05 Actual Procedures p Incision and Drainage Right Foot, Partial excision of Fifth Ray Right foot, Delayed primary closure Right foot wound - Gianluca Jackson DPM, MS Operation Date: 02/21/22 18:00 Actual Procedures p Right Foot Debridement, Wound Vac Application - Gianluca Jackson DPM, MS Operation Date: 02/25/22 10:20 Actual Procedures p Right Leg Arteriogram, Lithotripsy Of Proximal Popliteal Artery, Mechanical Closure of Left Femoral Artery, Moderate Sedation 1028 - 1135 (Left) - Howard Ocampo MD Operation Date: 02/27/22 14:00 Actual Procedures p Amputation Right 4th Toe(Right) - Gianluca Jackson DPM, MS Operation Date: 03/28/22 08:00 Actual Procedures p Application of Theraskin Skin Graft to Right Forefoot(Right) - Gianluca Jackson DPM, MS Surgeon Gianluca Jackson DPM, MS Sales Forecast Analyst none Estimated Blood Loss 5 Findings Consistent with Post-Op Diagnosis Anesthesia Type RN Sedation
--- NOTE | 2022-03-28 20:32 | Anesthesiology Progress Note ---
Date of Service March 28, 2022 Anesthesia Post Procedure Vital Signs Vital Signs: Temp Pulse Pulse Resp BP BP Pulse Ox 03/28/22 20:25 36.5 C 58 L 16 134/66 99 03/28/22 20:15 61 16 140/73 99 03/28/22 20:05 63 12 115/66 100 03/28/22 19:59 36.2 C L 54 L 12 113/57 L 100 03/28/22 17:29 36.5 C 65 18 127/66 98 03/28/22 14:52 36.7 C 67 18 148/76 H 97 03/28/22 10:15 03/28/22 10:34 61 125/66 98 03/28/22 07:33 36.7 C 55 L 16 110/60 96 O2 Del Method O2 Flow Rate 03/28/22 20:25 Room Air 03/28/22 20:15 Room Air 03/28/22 20:05 Oxymask 7 03/28/22 19:59 Oxymask 7 03/28/22 17:29 Room Air 03/28/22 14:52 Room Air 03/28/22 10:15 Room Air 03/28/22 10:34 Room Air 03/28/22 07:33 Room Air Pain Intensity Right Foot: Pain Intensity: 0 Transfer of Care Handoff Completed per policy Notes Mental Status: alert / awake / arousable and participated in evaluation Patient Amnestic to Procedure: Yes Nausea / Vomiting: adequately controlled Pain: adequately controlled Airway Patency, RR, SpO2: stable & adequate BP & HR: stable & adequate Hydration State: stable & adequate Anesthetic Complications: no major complications apparent and Pt Satisfied with anesthetic care
[2022-03-28] MEDS: LANTUS PER UNIT CHARGE SQ SCH (21:56)
[2022-03-28] MEDS: ROSUVASTATIN CALCIUM 10 MG TAB PO SCH (21:58)
[2022-03-29] MEDS: LOSARTAN POTASSIUM 50 MG TAB PO SCH (08:29)
[2022-03-29] MEDS: hydroCHLOROthiazide 25 MG TAB PO SCH (08:29)
[2022-03-29] MEDS: amLODIPine BESYLATE 5 MG TAB PO SCH (08:29)
[2022-03-29] MEDS: MENTHOL-ZINC OXIDE 360 APPLN/120 GM TUBE EXT SCH ×2 (08:30→21:07)
[2022-03-29 08:56] LABS: Creatinine Clr Calc Pharmacy 97.6 ml/min
--- NOTE | 2022-03-29 09:01 | Operative Report ---
Post Operative Report Pre & Post Diagnosis Operation Date: 02/18/22 00:05 Pre-Op Diagnosis: 1.) Diabetic ulcers right foot 2.) Osteomyelitis right fifth proximal phalanx 3.) Gas gangrene Right foot Post-Op Diagnosis: 1.) Diabetic ulcers right foot 2.) Osteomyelitis right fifth proximal phalanx 3.) Gas gangrene Right foot Operation Date: 02/21/22 18:00 Pre-Op Diagnosis: DM FOOT INFX Post-Op Diagnosis: DM FOOT INFX Operation Date: 02/25/22 10:20 Pre-Op Diagnosis: Gangrene Right Foot Post-Op Diagnosis: Gangrene Right Foot Operation Date: 02/27/22 14:00 Pre-Op Diagnosis: DM FOOT INFX Post-Op Diagnosis: DM FOOT INFX Operation Date: 03/28/22 08:00 Pre-Op Diagnosis: Diabetic Foot Ulcer Post-Op Diagnosis: Diabetic Foot Ulcer I identified the patient and participated in the time-out.: Yes Procedure Operation Date: 02/18/22 00:05 Actual Procedures p Incision and Drainage Right Foot, Partial excision of Fifth Ray Right foot, Delayed primary closure Right foot wound - Gianluca Jackson DPM, MS Operation Date: 02/21/22 18:00 Actual Procedures p Right Foot Debridement, Wound Vac Application - Gianluca Jackson DPM, MS Operation Date: 02/25/22 10:20 Actual Procedures p Right Leg Arteriogram, Lithotripsy Of Proximal Popliteal Artery, Mechanical Closure of Left Femoral Artery, Moderate Sedation 1028 - 1135 (Left) - Howard Ocampo MD Operation Date: 02/27/22 14:00 Actual Procedures p Amputation Right 4th Toe(Right) - Gianluca Jackson DPM, MS Operation Date: 03/28/22 08:00 Actual Procedures p Application of Theraskin Skin Graft to Right Forefoot(Right) - Gianluca Jackson DPM, MS Surgeon Gianluca Jackson DPM, MS Search Coordinator none Estimated Blood Loss 5 Findings Consistent with Post-Op Diagnosis Diabetic right foot non healing ulcer Specimens None Description of Procedure History of present illness: Patient is a 61-year-old male with prior history of right diabetic foot ulcers resulting in amputation of 4th and 5th ray. Patient seen today for debridement with wound bed preparation, application of skin , and application of wound vac negative pressure therapy. Procedure in detail was discussed as well as postoperative care. All questions were answered. All potential risks, benefits, complications, alternatives, rehab, potential for incomplete relief of symptoms, need for further surgery, DVT, PE, , persistent pain, swelling, scarring, weakness, neurovascular, wound complications and potential for amputations were discussed with patient. All questions were answered. Patient has decided to proceed with procedure as indicated. Preoperative diagnosis: Right foot diabetic wound, necrotic soft tissue down to muscle and tendon Postoperative diagnosis: Same Procedure in detail: 1.) Excision of necrotic soft tissue down to muscle and tendon right foot 2.) Application of skin graft 3.) Application of wound vac Surgeon: Dr. Jackson Search Coordinator: none Anesthesia: Local monitored anesthesia care Hemostasis: none Estimated blood loss: 5ml Specimens: None Procedure in detail: Under mild sedation the patient was brought in the operating room and placed on the operating table in supine position. Following sedation the foot and ankle were prepped scrubbed and draped in the usual aseptic manner. Attention was then directed to right foot diabetic non healing wound with exposed necrotic muscle and tendon. The wound measures roughly 7 cm x 6 cm x 1.6 cm. Utilizing a sharp, sterile, #15 blade of extensive debridement of necrotic devitalized soft tissue was acheived. The wound bed was voided of all non-viable tissue in preparation for skin graft. All bleeders were ligated and cauterized as necessary. Lactate ringer was utilized to flush the wound. At this time a 2 inch x 3 inch theraskin graft was chosen for application. The graft was placed in warm saline bath for 15 minutes prior to application. The theraskin graft was applied with out incident to the skin deficit and sutured in placed with 3 nylon simple sutures and covered with sterile adaptic. Next negative pressure wound therapy was applied. The [facility] wound vac was placed on 125mmHg continuous setting. The Patient tolerated procedure and anesthesia well he was transferred to recovery room vital signs stable and vascular status intact all remaining toes of the right foot following. Following a period of postoperative monitoring the patient will be discharged back to floor on the following written and postoperative oral instructions. Keep dressing clean dry and intact, avoid ambulation. Dr. Jackson for all postoperative care if any problems arise. I attest to the content of the Intraoperative Record and any orders documented therein. Any exceptions are noted below.
[2022-03-29] MEDS: INSULIN ASPART PER UNIT SC SCH ×4 (09:18→21:06)
[2022-03-29] MEDS: ADVANCED PROBIOTIC 1250 MG CAPSULE PO SCH (09:59)
[2022-03-29] MEDS: VANCOMYCIN HCL 1,250 MG in SODIUM CHLORIDE 0.9% 250 ML IV SCH ×2 (12:16→23:48)
[2022-03-29] MEDS: ERTAPENEM SODIUM 1,000 MG in SYRINGE 0 ML IV SCH (15:38)
--- NOTE | 2022-03-29 18:37 | Hospitalist Progress Note ---
Date of Service March 29, 2022 Assessment & Plan (1) Diabetic foot infection: (2) Diabetic foot ulcer associated with type 2 diabetes mellitus: (3) Osteomyelitis of right foot: (4) Peripheral arterial disease: (5) Post-operative state: (6) Stroke: (7) Diabetes mellitus: (8) Neuropathy: (9) HTN (hypertension): Plan Diabetic foot infection, Osteomyelitis Status post amputation of the right fourth and fifth toes No overt sepsis POA. 02/18: I&D right foot, partial excision of fifth ray right foot, delayed primary closure right foot wound. By Dr. Gianluca Jackson. 02/21: Right foot debridement, wound VAC application. By Dr. Gianluca Jackson. 02/25: Right leg arteriogram, lithotripsy of proximal popliteal artery, mechanical closure of left femoral artery. By Dr. Howard Ocampo. Cotton Breeder on board, wound VAC changes Thursday. 02/18 wound culture: Reviewed; await 02/24 pathology results. 02/18 pathology results suggestive of focal acute osteomyelitis in amputated right fifth toe. 02/17 blood culture: Negative 02/27: Amputation Right 4th Toe by Dr. Jackson 03/07: automotive refinish technician placed new dressings. Per picture and documentation, wound bed is healing with some slough present. Vac in place ID evaluated 02/24 Continue vancomycin and ertapenem for 6 weeks from the date of his last surgery (February 27, 2022) Wound care per Dr. Jackson who removed wound vac on 03/22 Wound vac has been put back in place by WOCN on 03/24 and he will go home with wound vac in place. airport manager currently in the process of setting up home health Ordered US-guided line, but they would like to wait until the decision to go [facility] facility has been made-placement deferred until 03/26 03/26 doing well overall continue Vanco + Ertapenem IV CM on board 03/27 Remained stable Wound VAC in place Continue vancomycin plus ertapenem, to complete 6 weeks from February 27, 2022 airport manager working on arranging home health services patient 03/28 Remained stable Wound VAC in place For skin graft placement today with Dr. Jackson Continue vancomycin plus ertapenem airport manager on board 03/29 Doing well after skin graft placement yesterday Continue vancomycin plus ertapenem Monitor HYPERTENSION improved BP control after adding losartan 100mg daily and HCTZ daily. Cont this and amlodipine 10mg. 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 Focal area of high-grade stenosis of the proximal inferior mesenteric artery. Multifocal stenosis within the bilateral lower extremity arterial systems. Distal right posterior tibial artery, distal left anterior tibial artery, and distal bilateral peroneal arteries are likely occluded. Vascular team on board, status post intervention on 02/25 [see above] No significant pain involving the extremities or the abdomen h/o CVA: cont medical management DM II: chronic, current inpatient glucose at goal , cont current management. A1C in September 15 reflects good control. BSG 103-144 DVT prophylaxis:Heparin sq Full code Disposition: Awaiting placement to SNF vs may go home with HH. Will ensure appropriate line in place in preparation for discharge. If home with HH will need to switch to dapto to finish the course for once daily dosing of abx. Admission and Anticipated Discharge Date Admission Date: February 17, 2022 Subjective Follow-up for DM foot infection, etc. Seen resting in bed, comfortable, not in distress Denies pain on the right foot no chest pain, dyspnea, palpitations, dizziness No other new symptoms Review of Systems Review of Systems: all noted and negative except for above Physical Exam Physical Exam: General- oriented x 3, not in distress, speaks in sentences with no effort or accessory muscle use Eyes- anicteric Neck- no JVD Lungs- clear breath sounds bilaterally, no crackles or wheezing Heart- normal rate, regular rhythm; no murmurs Abdomen- normal bowel sounds, nondistended, soft, no tenderness Extremities- no pretibial edema, no calf tenderness Right foot, wound VAC in place, no bleeding or discharge Neuro- alert, oriented x 3; no gross focal neurologic deficits Skin- warm & dry Results & Data Results & Data ([place]) Vital Signs (Past 12 Hours) Vital Signs Temp Pulse Resp BP Pulse Ox O2 Del Method 03/29/22 15:41 36.9 C 61 18 118/61 95 Room Air 03/29/22 07:47 36.7 C 54 L 16 123/65 95 Room Air all noted and reviewed including below
[2022-03-29] MEDS: LANTUS PER UNIT CHARGE SQ SCH (21:06)
[2022-03-29] MEDS: ROSUVASTATIN CALCIUM 10 MG TAB PO SCH (21:07)
[2022-03-30 08:53] LABS: Basophils # (auto) 0.03 K/uL (0-0.2); Basophils % (auto) 0.4 %; Eosinophils # (auto) 0.59 K/uL (0-0.50); Eosinophils % (auto) 8.3 %; Hemoglobin 12.2 g/dl (14.0-18.0); Immature Granulocytes # (auto) 0.02 K/uL (0.00-0.02); Immature Granulocytes % (auto) 0.3 %; Lymphocytes # (auto) 1.78 K/uL (1.2-3.4); Lymphocytes % (auto) 25.1 %; Mean Corpuscular Hemoglobin 28.2 pg (25.0-34.0); Mean Corpuscular Hgb Conc 32.1 g/dL (32.0-36.0); Mean Corpuscular Volume 87.8 fL (80.0-100.0); Mean Platelet Volume 10.4 fL (9.4-12.4); Monocytes # (auto) 0.61 K/uL (0.24-0.82); Monocytes % (auto) 8.6 %; Neutrophils # (auto) 4.06 K/uL (1.4-6.5); Neutrophils % (auto) 57.3 %; Platelet Count 217 K/uL (130-400); RDW Standard Deviation 45.4 fL (36.4-46.3); Red Blood Count 4.33 M/uL (4.63-6.08); White Blood Count 7.09 K/ul (4.8-10.8)
[2022-03-30 09:29] LABS: Albumin Globulin Ratio 1.3 (0.9-2); Albumin Level 3.6 gm/dl (3.4-5.0); BUN Creatinine Ratio 29.1 (10-20); Bilirubin,Total 1.3 mg/dl (0.2-1.0); Calcium 9.2 mg/dl (8.5-10.1); Creatinine Clr Calc Pharmacy 99.9 ml/min; Est GFR (Non-African American) 94.9 ml/min; Globulin 2.8 gm/dl (2.5-4.0); Potassium 3.8 mmol/L (3.5-5.1); Total Protein 6.4 gm/dl (6.0-8.3)
[2022-03-30] MEDS: amLODIPine BESYLATE 5 MG TAB PO SCH (09:32)
[2022-03-30] MEDS: hydroCHLOROthiazide 25 MG TAB PO SCH (09:32)
[2022-03-30] MEDS: ADVANCED PROBIOTIC 1250 MG CAPSULE PO SCH (09:32)
[2022-03-30] MEDS: LOSARTAN POTASSIUM 50 MG TAB PO SCH (09:32)
[2022-03-30] MEDS: MENTHOL-ZINC OXIDE 360 APPLN/120 GM TUBE EXT SCH ×2 (09:41→20:49)
[2022-03-30] MEDS: VANCOMYCIN HCL 1,250 MG in SODIUM CHLORIDE 0.9% 250 ML IV SCH ×2 (11:49→23:50)
[2022-03-30] MEDS: ERTAPENEM SODIUM 1,000 MG in SYRINGE 0 ML IV SCH (15:09)
--- NOTE | 2022-03-30 15:58 | Hospitalist Progress Note ---
Date of Service March 30, 2022 Assessment & Plan (1) Diabetic foot infection: (2) Diabetic foot ulcer associated with type 2 diabetes mellitus: (3) Osteomyelitis of right foot: (4) Peripheral arterial disease: (5) Post-operative state: (6) Stroke: (7) Diabetes mellitus: (8) Neuropathy: (9) HTN (hypertension): Plan Diabetic foot infection, Osteomyelitis Status post amputation of the right fourth and fifth toes No overt sepsis POA. 02/18: I&D right foot, partial excision of fifth ray right foot, delayed primary closure right foot wound. By Dr. Gianluca Jackson. 02/21: Right foot debridement, wound VAC application. By Dr. Gianluca Jackson. 02/25: Right leg arteriogram, lithotripsy of proximal popliteal artery, mechanical closure of left femoral artery. By Dr. Howard Ocampo. Executive Search Consultant on board, wound VAC changes Thursday. 02/18 wound culture: Reviewed; await 02/24 pathology results. 02/18 pathology results suggestive of focal acute osteomyelitis in amputated right fifth toe. 02/17 blood culture: Negative 02/27: Amputation Right 4th Toe by Dr. Jackson 03/07: marketing communications leader placed new dressings. Per picture and documentation, wound bed is healing with some slough present. Vac in place ID evaluated 02/24 Continue vancomycin and ertapenem for 6 weeks from the date of his last surgery (February 27, 2022) Wound care per Dr. aJckson who removed wound vac on 03/22 Wound vac has been put back in place by WOCN on 03/24 and he will go home with wound vac in place. telehealth case manager currently in the process of setting up home health Ordered US-guided line, but they would like to wait until the decision to go h ome facility has been made-placement deferred until 03/26 03/26 doing well overall continue Vanco + Ertapenem IV CM on board 03/27 Remained stable Wound VAC in place Continue vancomycin plus ertapenem, to complete 6 weeks from February 27, 2022 telehealth case manager working on arranging home health services patient 03/28 Remained stable Wound VAC in place For skin graft placement today with Dr. Jackson Continue vancomycin plus ertapenem telehealth case manager on board 03/29 Doing well after skin graft placement yesterday Continue vancomycin plus ertapenem Monitor 03/30 stable overall labs ok continue Vanco + Ertapenem HYPERTENSION improved BP control after adding losartan 100mg daily and HCTZ daily. Cont this and amlodipine 10mg. 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 Focal area of high-grade stenosis of the proximal infe rior mesenteric artery. Multifocal stenosis within the bilateral lower extremity arterial systems. Distal right posterior tibial artery, distal left anterior tibial artery, and distal bilateral peroneal arteries are likely occluded. Vascular team on board, status post intervention on 02/25 [see above] No significant pain involving the extremities or the abdomen h/o CVA: cont medical management DM II: chronic, current inpatient glucose at goal , cont current management. A1C in September 15 reflects good control. BSG 103-144 DVT prophylaxis:Heparin sq Full code Disposition: Awaiting placement to SNF vs may go home with HH. Will ensure appropriate line in place in preparation for discharge. If home with HH will need to switch to dapto to finish the course for once daily dosing of abx. Admission and Anticipated Discharge Date Admission Date: February 17, 2022 Subjective ff up for DM foot infection, etc seen resting in bed, comfortable feels fine no leg/foot pain no chest pain, dyspnea, palpitations, dizziness appetite good no other symptoms Review of Systems Review of Systems: all noted and negative except for above Physical Exam Physical Exam: General- oriented x 3, not in distress, speaks in sentences with no effort or accessory muscle use Eyes- anicteric Neck- no JVD Lungs- clear BS bilaterally Heart- normal rate, regular rhythm; no murmurs Abdomen- normal bowel sounds, nondistended, soft, no tenderness Extremities- no pretibial edema, no calf tenderness Neuro- alert, oriented x 3; no gross focal neurologic deficits Skin- warm & dry Results & Data Results & Data ([facility]) Vital Signs (Past 12 Hours) Vital Signs Temp Pulse Resp BP BP Pulse Ox O2 Del Method 03/30/22 15:02 144/73 H 03/30/22 15:00 37 C 66 16 168/70 H 96 Room Air 03/30/22 07:46 36.7 C 54 L 16 135/86 96 Room Air all noted and reviewed including below
[2022-03-30] MEDS ORDERED: GLUCOSE 10 TAB/TUBE PO PRN (19:36)
[2022-03-30] MEDS ORDERED: GLUCAGON FOR INJ 1 MG VIAL SQ PRN (19:36)
[2022-03-30] MEDS ORDERED: GLUCOSE 40% GEL 15 GM TUBE PO PRN (19:36)
[2022-03-30] MEDS ORDERED: CARBOHYDRATES FOR HYPOGLYCEMIA PO PRN (19:36)
[2022-03-30] MEDS ORDERED: DEXTROSE 50% 50 ML SYRINGE IV PRN (19:36)
[2022-03-30] MEDS: INSULIN ASPART PER UNIT SC SCH (20:35)
[2022-03-30] MEDS: LANTUS PER UNIT CHARGE SQ SCH (20:49)
[2022-03-30] MEDS: ROSUVASTATIN CALCIUM 10 MG TAB PO SCH (20:49)
[2022-03-31 06:09] LABS: Creatinine Clr Calc Pharmacy 87.7 ml/min; Est GFR (African American) 97.4 ml/min; Est GFR (Non-African American) 84.1 ml/min
[2022-03-31] MEDS: ADVANCED PROBIOTIC 1250 MG CAPSULE PO SCH (08:37)
[2022-03-31] MEDS: LOSARTAN POTASSIUM 50 MG TAB PO SCH (08:37)
[2022-03-31] MEDS: amLODIPine BESYLATE 5 MG TAB PO SCH (08:37)
[2022-03-31] MEDS: hydroCHLOROthiazide 25 MG TAB PO SCH (08:37)
[2022-03-31] MEDS: MENTHOL-ZINC OXIDE 360 APPLN/120 GM TUBE EXT SCH ×2 (08:38→21:12)
[2022-03-31] MEDS: INSULIN ASPART PER UNIT SC SCH ×4 (08:39→20:49)
--- NOTE | 2022-03-31 09:29 | Pharmacy Report ---
Pharmacy PK ABX Note - Date of Service March 31, 2022 - Assessment and Plan Assessment 61 year old M receiving Vancomycin and Ertapenem for treatment of bone and joint infection. 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 Patient was initially being treated with daptomycin/ertapenem. However, daptomycin was switched to vancomycin d/t difficulty finding placement with daptomycin. ID consulted. Renal function stable. 6 weeks of therapy per ID from 02/27/22, last day of therapy to be 04/10/22. Plan Vancomycin * Current regimen: 1250 mg IV every 12 hours * Random level obtained 03/31/22 resulted as 22.8 mcg/mL. This is predicted to achieve target AUC/GRACIE of 400-600 mg/L.hr * Predicted AUC at steady state: 583 mg/L.hr * Continue 1250 mg IV every 12 hours * Will repeat level as necessary for change in renal function Ertapenem * 1 g IV q24h - no change Pharmacy will continue to follow and will adjust dose/frequency as necessary. Thank you. Pharmacy has transitioned to AUC monitoring for vancomycin. AUC/GRACIE is the preferred PK/PD target and is associated with decreased risk of nephrotoxicity compared to traditional trough targets.
[2022-03-31] MEDS: VANCOMYCIN HCL 1,250 MG in SODIUM CHLORIDE 0.9% 250 ML IV SCH ×2 (11:38→23:52)
[2022-03-31] MEDS: ERTAPENEM SODIUM 1,000 MG in SYRINGE 0 ML IV SCH (15:25)
--- NOTE | 2022-03-31 20:09 | Hospitalist Progress Note ---
Date of Service March 31, 2022 delayed entry date of service as noted above Assessment & Plan (1) Diabetic foot infection: (2) Diabetic foot ulcer associated with type 2 diabetes mellitus: Plan: (1) Diabetic foot infection: (2) Diabetic foot ulcer associated with type 2 diabetes mellitus: (3) Osteomyelitis of right foot: (4) Peripheral arterial disease: (5) Post-operative state: (6) Stroke: (7) Diabetes mellitus: (8) Neuropathy: (9) HTN (hypertension): Plan Diabetic foot infection, Osteomyelitis Status post amputation of the right fourth and fifth toes No overt sepsis POA. 02/18: I&D right foot, partial excision of fifth ray right foot, delayed primary closure right foot wound. By Dr. Gianluca Jackson. 02/21: Right foot debridement, wound VAC application. By Dr. Gianluca Jackson. 02/25: Right leg arteriogram, lithotripsy of proximal popliteal artery, mechanical closure of left femoral artery. By Dr. Howard Ocampo. Clinical Project Coordinator on board, wound VAC changes Thursday. 02/18 wound culture: Reviewed; await 02/24 pathology results. 02/18 pathology results suggestive of focal acute osteomyelitis in amputated right fifth toe. 02/17 blood culture: Negative 02/27: Amputation Right 4th Toe by Dr. Jackson 03/07: pigeon fancier placed new dressings. Per picture and documentation, wound bed is healing with some slough present. Vac in place ID evaluated 02/24 Continue vancomycin and ertapenemfor 6 weeks from the date of his last surgery (February 27, 2022) Wound care per Dr. Jackson who removed wound vac on 03/22 Wound vac has been put back in place by WOCHARLES on 03/24 and he will go home with wound vac in place. 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 Focal area of high-grade stenosis of the proximal inferior mesenteric artery. Multifocal stenosis within the bilateral lower extr emity arterial systems. Distal right posterior tibial artery, distal left anterior tibial artery, and distal bilateral peroneal arteries are likely occluded. Vascular team on board, status post intervention on 02/25 [see above] No significant pain involving the extremities or the abdomen h/o CVA: cont medical management DM II:chronic, current inpatient glucose at goal , cont current management. A1C in September 15 reflects good control. BSG 103-144 DVT prophylaxis:Heparin sq Full code Disposition:Awaiting placement to SNF vs may go home with HH. (3) Osteomyelitis of right foot: (4) Peripheral arterial disease: (5) Post-operative state: (6) Stroke: (7) Diabetes mellitus: (8) Neuropathy: (9) HTN (hypertension): Plan Diabetic foot infection, Osteomyelitis Status post amputation of the right fourth and fifth toes No overt sepsis POA. 02/18: I&D right foot, partial excision of fifth ray right foot, delayed primary closure right foot wound. By Dr. Gianluca Jackson. 02/21: Right foot debridement, wound VAC application. By Dr. Gianluca Jackson. 02/25: Right leg arteriogram, lithotripsy of proximal popliteal artery, mechanical closure of left femoral artery. By Dr. Howard Ocampo. Clinical Project Coordinator on board, wound VAC changes Thursday. 02/18 wound culture: Reviewed; await 02/24 pathology results. 02/18 pathology results suggestive of focal acute osteomyelitis in amputated right fifth toe. 02/17 blood culture: Negative 02/27: Amputation Right 4th Toe by Dr. Jackson 03/07: pigeon fancier placed new dressings. Per picture and documentation, wound bed is healing with some slough present. Vac in place ID evaluated 02/24 Continue vancomycin and ertapenem for 6 weeks from the date of his last surgery (February 27, 2022) Wound care per Dr. Jackson who removed wound vac on 03/22 Wound vac has been put back in place by WOCHARLES on 03/24 and he will go home with wound vac in place. er manager currently in the process of setting up home health Ordered US-guided line, but they would like to wait until the decision to go home vs facility has been made-placement deferred until 03/26 03/26 doing well overall continue Vanco + Ertapenem IV CM on board 03/27 Remained stable Wound VAC in place Continue vancomycin plus ertapenem, to complete 6 weeks from February 27, 2022 er manager working on arranging home health services patient 03/28 Remained stable Wound VAC in place For skin graft placement today with Dr. Jackson Continue vancomycin plus ertapenem er manager on board 03/29 Doing well after skin graft placement yesterday Continue vancomycin plus ertapenem Monitor 03/30 stable overall labs ok continue Vanco + Ertapenem HYPERTENSION improved BP control after adding losartan 100mg daily and HCTZ daily. Cont this and amlodipine 10mg. 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 Focal area of high-grade stenosis of the proximal inferior mesenteric artery. Multifocal stenosis within the bilateral lower extremity arterial systems. Distal right posterior tibial artery, distal left anterior tibial artery, and distal bilateral peroneal arteries are likely occluded. Vascular team on board, status post intervention on 02/25 [see above] No significant pain involving the extremities or the abdomen h/o CVA: cont medical management DM II: chronic, current inpatient glucose at goal , cont current management. A1C in September 15 reflects good control. BSG 103-144 DVT prophylaxis:Heparin sq Full code Disposition: Awaiting placement to SNF vs may go home with HH. Will ensure appropriate line in place in preparation for discharge. If home with HH will need to switch to dapto to finish the course for once daily dosing of abx. Admission and Anticipated Discharge Date Admission Date: February 17, 2022 Subjective ff up for DM foot infection, s/p surgery seen resting in bed, comfortable states he feels fine overall no foot/leg pain no other new symptoms Review of Systems Review of Systems: all noted and negative except for above Physical Exam Physical Exam: General- oriented x 3, not in distress, speaks in sentences with no effort or accessory muscle use Eyes- anicteric Neck- no JVD Lungs- clear BS BL Heart- normal rate, regular rhythm; no murmurs Abdomen- normal bowel sounds, nondistended, soft, no tenderness Extremities- no pretibial edema, no calf tenderness R foot: wound vac in place, no edema/erythema Neuro- alert, oriented x 3; no gross focal neurologic deficits Skin- warm & dry Results & Data Results & Data ([facility]) Vital Signs (Past 12 Hours) Vital Signs Temp Pulse Pulse Resp BP Pulse Ox O2 Del Method 03/31/22 19:54 37.1 C 60 18 133/65 94 Room Air 03/31/22 14:51 36.8 C 61 16 131/68 94 Room Air 03/31/22 08:34 62 all noted and reviewed including below
[2022-03-31] MEDS ORDERED: LACTATED RINGER'S 1,000 ML IV ONE (21:00)
[2022-03-31] MEDS: LANTUS PER UNIT CHARGE SQ SCH (21:03)
[2022-03-31] MEDS: ROSUVASTATIN CALCIUM 10 MG TAB PO SCH (21:12)
[2022-04-01] MEDS: ADVANCED PROBIOTIC 1250 MG CAPSULE PO SCH (08:37)
[2022-04-01] MEDS: INSULIN ASPART PER UNIT SC SCH ×4 (08:43→21:03)
[2022-04-01] MEDS: LANTUS PER UNIT CHARGE SQ SCH (08:44)
[2022-04-01] MEDS: MENTHOL-ZINC OXIDE 360 APPLN/120 GM TUBE EXT SCH ×2 (09:41→21:03)
[2022-04-01] MEDS: LOSARTAN POTASSIUM 50 MG TAB PO SCH (09:41)
[2022-04-01] MEDS: amLODIPine BESYLATE 5 MG TAB PO SCH (09:41)
[2022-04-01] MEDS: VANCOMYCIN HCL 1,250 MG in SODIUM CHLORIDE 0.9% 250 ML IV SCH ×2 (12:33→23:46)
[2022-04-01] MEDS: ERTAPENEM SODIUM 1,000 MG in SYRINGE 0 ML IV SCH (14:09)
--- NOTE | 2022-04-01 16:19 | Orthopedic Progress Note ---
Date of Service April 01, 2022 Assessment & Plan (1) Diabetic foot ulcer associated with type 2 diabetes mellitus: Plan: Patient seen, evaluated, and treated. S/p Day #4 application of skin substitute. Wound vac is intact and running 125mmHg continuous Vac to be changed on 04/04/22. Admission and Anticipated Discharge Date Admission Date: February 17, 2022 Subjective Patient seen at bedside. He is status post day #4 application of skin substitute. Wound vac is intact and running. Review of Systems Review of Systems: All systems reviewed & are unremarkable except as noted in HPI & below Results & Data ([facility]) Vital Signs (Past 12 Hours) Vital Signs Temp Pulse Resp BP Pulse Ox O2 Del Method 04/01/22 14:52 36.6 C 60 16 146/73 H 95 Room Air 04/01/22 07:16 36.4 C L 51 L 16 128/90 96 Room Air
[2022-04-01] MEDS: ROSUVASTATIN CALCIUM 10 MG TAB PO SCH (21:03)
[2022-04-02] MEDS: LANTUS PER UNIT CHARGE SQ SCH (08:49)
[2022-04-02] MEDS: INSULIN ASPART PER UNIT SC SCH ×4 (08:49→20:50)
[2022-04-02] MEDS: amLODIPine BESYLATE 5 MG TAB PO SCH (08:50)
[2022-04-02] MEDS: ADVANCED PROBIOTIC 1250 MG CAPSULE PO SCH (08:50)
[2022-04-02] MEDS: LOSARTAN POTASSIUM 50 MG TAB PO SCH (08:50)
[2022-04-02] MEDS: MENTHOL-ZINC OXIDE 360 APPLN/120 GM TUBE EXT SCH ×2 (08:51→20:56)
[2022-04-02 10:12] LABS: Creatinine Clr Calc Pharmacy 91.4 ml/min; Est GFR (African American) 102.4 ml/min; Est GFR (Non-African American) 88.4 ml/min
[2022-04-02] MEDS: VANCOMYCIN HCL 1,250 MG in SODIUM CHLORIDE 0.9% 250 ML IV SCH ×2 (12:45→23:17)
--- NOTE | 2022-04-02 15:29 | Hospitalist Progress Note ---
Date of Service April 02, 2022 Assessment & Plan (1) Diabetic foot infection: (2) Diabetic foot ulcer associated with type 2 diabetes mellitus: (3) Osteomyelitis of right foot: (4) Peripheral arterial disease: (5) Post-operative state: (6) Stroke: (7) Diabetes mellitus: (8) Neuropathy: (9) HTN (hypertension): Plan Diabetic foot infection, Osteomyelitis Status post amputation of the right fourth and fifth toes No overt sepsis POA. 02/18: I&D right foot, partial excision of fifth ray right foot, delayed primary closure right foot wound. By Dr. Gianluca Jackson. 02/21: Right foot debridement, wound VAC application. By Dr. Gianluca Jackson. 02/25: Right leg arteriogram, lithotripsy of proximal popliteal artery, mechanical closure of left femoral artery. By Dr. Howard Ocampo. Carbon Printer on board, wound VAC changes Thursday. 02/18 wound culture: Reviewed; await 02/24 pathology results. 02/18 pathology results suggestive of focal acute osteomyelitis in amputated right fifth toe. 02/17 blood culture: Negative 02/27: Amputation Right 4th Toe by Dr. Jackson 03/07: tax lawyer placed new dressings. Per picture and documentation, wound bed is healing with some slough present. Vac in place ID evaluated 02/24 Continue vancomycin and ertapenem for 6 weeks from the date of his last surgery (February 27, 2022) Wound care per Dr. Jackson who removed wound vac on 03/22 Wound vac has been put back in place by [facility] on 03/24 and he will go home with wound vac in place. qual research manager currently in the process of setting up home health Ordered US-guided line, but they would like to wait until the decision [facility]-placement deferred until 03/26 Remains on intravenous Vanco and ertapenem-6 weeks from 02/27/[address] will be changed 04/04 as per the l tacker Likely to be accepted to [facility]-discussed with Dr. Jackson regarding discharge with or without wound VAC placement HYPERTENSION improved BP control after adding losartan 100mg daily and HCTZ daily. Cont this and amlodipine 10mg. 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 Focal area of high-grade stenosis of the proximal inferior mesenteric artery. Multifocal stenosis within the bilateral lower extremity arterial systems. Distal right posterior tibial artery, distal left anterior tibial artery, and distal bilateral peroneal arteries are likely occluded. Vascular team on board, status post intervention on 02/25 [see above] No significant pain involving the extremities or the abdomen h/o CVA: cont medical management DM II: chronic, current inpatient glucose at goal , cont current management. A1C in September 15 reflects good control. BSG 103-144 DVT prophylaxis:Heparin sq Full code Disposition: Awaiting placement to SNF vs may go home with HH. Will ensure appropriate line in place in preparation for discharge. Admission and Anticipated Discharge Date Admission Date: February 17, 2022 Subjective 04/02/2022 The patient was seen and examined in medical floor He has been stable and denies any significant symptoms No pain in the foot, no fever and no chills Review of Systems Review of Systems: All systems reviewed and are unremarkable except as noted below Physical Exam Physical Exam: Lying in bed comfortably Constitutional: well developed, well nourished, + ill appearing and + obese Eyes: PERRL, conjunctivae normal, anicteric sclerae ENMT: external ear and nose normal, oropharynx normal Neck: trachea midline, no thyromegaly Respiratory: no respiratory distress Auscultation: lungs clear to auscultation bilaterally Cardiovascular: Rate/Rhythm: regular rate and regular rhythm; not tachycardic Heart Sounds: normal S1 and normal S2; no murmur Right foot status post surgery with wound VAC placed as in the picture Gastrointestinal (Abdomen): Inspection/Auscultation: normal bowel sounds; abdomen not distended Percussion/Palpation: abdomen soft; abdomen nontender Musculoskeletal: Right foot is in wound VAC. No signs of surrounding inflammation or infection Neurologic: Alert, awake and oriented x3 Results & Data Results & Data ([facility]) Vital Signs (Past 12 Hours) Vital Signs Temp Pulse Resp BP Pulse Ox O2 Del Method 04/02/22 14:33 36.7 C 58 L 16 125/68 96 Room Air 04/02/22 10:00 Room Air 04/02/22 07:14 36.7 C 55 L 16 130/67 96 Room Air Laboratory Results [facility] 04/02/22 08:59 Creatinine 0.94 Medications Administered Current Inpatient Medications Amlodipine Besylate (Amlodipine Besylate 5 Mg Tab) 10 mg PO QAM [facility] Stop: 04/19/22 08:59 Last Admin: 04/02/22 08:50 Dose: 10 mg Calamine/Phenol (Menthol-Zinc Oxide 360 Appln/120 Gm Tube) 1 appln EXT BID [facility] Stop: 04/10/22 08:59 Last Admin: 04/02/22 08:51 Dose: 1 appln Dextrose (Dextrose 50% 50 Ml Syringe) 25 - 50 ml IV UD PRN; Protocol PRN Reason: Hypoglycemia Protocol Stop: 04/29/22 19:35 Glucagon (Glucagon For Inj 1 Mg Vial) 1 mg SQ UD PRN; Protocol PRN Reason: Hypoglycemia Protocol Stop: 04/29/22 19:35 Glucose (Glucose 40% Gel 15 Gm Tube) 15 - 30 gm PO UD PRN; Protocol PRN Reason: Hypoglycemia Protocol Stop: 04/29/22 19:35 Glucose (Glucose 10 Tab/Tube) 4 - 8 tab PO UD PRN; Protocol PRN Reason: Hypoglycemia Treatment Stop: 04/29/22 19:35 Hydrochlorothiazide (Hydrochlorothiazide 25 Mg Tab) 12.5 mg PO QAM [facility] Stop: 04/23/22 08:59 Last Admin: 03/31/22 08:37 Dose: 12.5 mg Ertapenem 1,000 mg/ Syringe 10 mls @ 2 mls/min IV Q24H [facility] Stop: 04/10/22 14:59 Last Admin: 04/01/22 14:09 Dose: 2 mls/min Vancomycin HCl 1,250 mg/ (Sodium Chloride) 275 mls @ 200 mls/hr IV Q12H [facility]; Protocol Stop: 04/10/22 00:00 Last Infusion: 04/02/22 14:18 Dose: Infused Insulin Aspart (Insulin Aspart Per Unit) 0 units SC ACHS [facility] Stop: 04/29/22 19:39 Last Admin: 04/02/22 12:53 Dose: 1 units Insulin Glargine (Lantus Per Unit Charge) 10 units SQ DAILY [facility] Stop: 05/01/22 08:59 Last Admin: 04/02/22 08:49 Dose: 10 units Lactobacillus Acidophilus (Advanced Probiotic 1250 Mg Capsule) 2 cap PO DAILY [facility] Stop: 04/28/22 08:59 Last Admin: 04/02/22 08:50 Dose: 2 cap Losartan Potassium (Losartan Potassium 50 Mg Tab) 100 mg PO QAM [facility] Stop: 04/20/22 09:59 Last Admin: 04/02/22 08:50 Dose: 100 mg Miscellaneous (Carbohydrates For Hypoglycemia ) 15 - 30 gm PO UD PRN PRN Reason: Hypoglycemia Protocol Stop: 04/29/22 19:35 Miscellaneous Information (Vancomycin Consult Active) 1 each N/A UD PRN PRN Reason: Consult Stop: 04/11/22 17:42 Rosuvastatin Calcium (Rosuvastatin Calcium 10 Mg Tab) 10 mg PO QPM [facility] Stop: 04/13/22 20:59 Last Admin: 04/01/22 21:03 Dose: 10 mg
[2022-04-02] MEDS: ERTAPENEM SODIUM 1,000 MG in SYRINGE 0 ML IV SCH (16:29)
[2022-04-02] MEDS: ROSUVASTATIN CALCIUM 10 MG TAB PO SCH (20:50)
[2022-04-03] MEDS: INSULIN ASPART PER UNIT SC SCH ×2 (09:00→13:19)
[2022-04-03] MEDS: LANTUS PER UNIT CHARGE SQ SCH (09:00)
[2022-04-03] MEDS: amLODIPine BESYLATE 5 MG TAB PO SCH (09:02)
[2022-04-03] MEDS: ADVANCED PROBIOTIC 1250 MG CAPSULE PO SCH (09:02)
[2022-04-03] MEDS: LOSARTAN POTASSIUM 50 MG TAB PO SCH (09:02)
[2022-04-03] MEDS: MENTHOL-ZINC OXIDE 360 APPLN/120 GM TUBE EXT SCH (09:02)
[2022-04-03] MEDS: VANCOMYCIN HCL 1,250 MG in SODIUM CHLORIDE 0.9% 250 ML IV SCH (12:39)
--- NOTE | 2022-04-03 14:02 | Hospitalist Progress Note ---
Date of Service April 03, 2022 Assessment & Plan (1) Diabetic foot infection: (2) Diabetic foot ulcer associated with type 2 diabetes mellitus: (3) Osteomyelitis of right foot: (4) Peripheral arterial disease: (5) Post-operative state: (6) Stroke: (7) Diabetes mellitus: (8) Neuropathy: (9) HTN (hypertension): Plan Diabetic foot infection, Osteomyelitis Status post amputation of the right fourth and fifth toes No overt sepsis POA. 02/18: I&D right foot, partial excision of fifth ray right foot, delayed primary closure right foot wound. By Dr. Gianluca Jackson. 02/21: Right foot debridement, wound VAC application. By Dr. Gianluca Jackson. 02/25: Right leg arteriogram, lithotripsy of proximal popliteal artery, mechanical closure of left femoral artery. By Dr. Howard Ocampo. Breakfast Supervisor on board, wound VAC changes Thursday. 02/18 wound culture: Reviewed; await 02/24 pathology results. 02/18 pathology results suggestive of focal acute osteomyelitis in amputated right fifth toe. 02/17 blood culture: Negative 02/27: Amputation Right 4th Toe by Dr. Jackson 03/07: sales agent food vending service placed new dressings. Per picture and documentation, wound bed is healing with some slough present. Vac in place ID evaluated 02/24 Continue vancomycin and ertapenem for 6 weeks from the date of his last surgery (February 27, 2022) Wound care per Dr. Jackson who removed wound vac on 03/22 Wound vac has been put back in place by [facility] on 03/24 and he will go home with wound vac in place. environmental conflict manager currently in the process of setting up home health Ordered US-guided line, but they would like to wait until the decision [facility] has been [facility]-placement deferred until 03/26 Remains on intravenous Vanco and ertapenem-6 weeks from 02/27/[address] will be changed 04/04 as per the copy chief Likely to be accepted to [facility]-discussed with Dr. Jackson regarding discharge with or without wound VAC placement Discussed with Dr. Jackson and the wound VAC will be changed on Thursday that is 04/07 at 2:45 PM at his office The patient remained stable to be transferred to [facility] this afternoon IV antibiotics will be continued until 04/10/2022 HYPERTENSION improved BP control after adding losartan 100mg daily and HCTZ daily. Cont this and amlodipine 10mg. 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 Focal area of high-grade stenosis of the proximal inferior mesenteric artery. Multifocal stenosis within the bilateral lower extremity arterial systems. Distal right posterior tibial artery, distal left anterior tibial artery, and distal bilateral peroneal arteries are likely occluded. Vascular team on board, status post intervention on 02/25 [see above] No significant pain involving the extremities or the abdomen h/o CVA: cont medical management DM II: chronic, current inpatient glucose at goal , cont current management. A1C in September 15 reflects good control. BSG 103-144 DVT prophylaxis:Heparin sq Full code Disposition: Awaiting placement to SNF vs may go home with HH. Will ensure appropriate line in place in preparation for discharge. Medically stable and will be transferred to [facility] this afternoon Admission and Anticipated Discharge Date Admission Date: February 17, 2022 Subjective 04/02/2022 The patient was seen and examined in medical floor He has been stable and denies any significant symptoms No pain in the foot, no fever and no chills 04/03/2022 The patient was seen and examined in medical floor He has been stable and denies any symptoms No fever and no chills, no swelling of the right foot and the wound VAC seems to be in place without any inflammation around Review of Systems Review of Systems: All systems reviewed and are unremarkable except as noted below Physical Exam Physical Exam: Lying in bed comfortably Constitutional: well developed, well nourished, + ill appearing and + obese Eyes: PERRL, conjunctivae normal, anicteric sclerae ENMT: external ear and nose normal, oropharynx normal Neck: trachea midline, no thyromegaly Respiratory: no respiratory distress Auscultation: lungs clear to auscultation bilaterally Cardiovascular: Rate/Rhythm: regular rate and regular rhythm; not tachycardic Heart Sounds: normal S1 and normal S2; no murmur Extremities: + edema (Trace edema bilaterally more on the right than the left) Gastrointestinal (Abdomen): Inspection/Auscultation: normal bowel sounds; abdomen not distended Percussion/Palpation: abdomen soft; abdomen nontender Skin: Wound VAC is placed on right foot. The site looks clean without any inflammation Neurologic: normal touch/pain/proprioception (Except right foot) and moves all extremities; no focal motor deficits Psychiatric: A+Ox3, euthymic affect Lymphatic: no cervical or axillary lymphadenopathy Results & Data Results & Data ([facility]) Vital Signs (Past 12 Hours) Vital Signs Temp Pulse Resp BP Pulse Ox O2 Del Method 04/03/22 07:28 36.6 C 65 16 119/64 96 Room Air Medications Administered Current Inpatient Medications Amlodipine Besylate (Amlodipine Besylate 5 Mg Tab) 10 mg PO QAM [facility] Stop: 04/19/22 08:59 Last Admin: 04/03/22 09:02 Dose: 10 mg Calamine/Phenol (Menthol-Zinc Oxide 360 Appln/120 Gm Tube) 1 appln EXT BID [facility] Stop: 04/10/22 08:59 Last Admin: 04/03/22 09:02 Dose: Not Given Dextrose (Dextrose 50% 50 Ml Syringe) 25 - 50 ml IV UD PRN; Protocol PRN Reason: Hypoglycemia Protocol Stop: 04/29/22 19:35 Glucagon (Glucagon For Inj 1 Mg Vial) 1 mg SQ UD PRN; Protocol PRN Reason: Hypoglycemia Protocol Stop: 04/29/22 19:35 Glucose (Glucose 40% Gel 15 Gm Tube) 15 - 30 gm PO UD PRN; Protocol PRN Reason: Hypoglycemia Protocol Stop: 04/29/22 19:35 Glucose (Glucose 10 Tab/Tube) 4 - 8 tab PO UD PRN; Protocol PRN Reason: Hypoglycemia Treatment Stop: 04/29/22 19:35 Heparin Sodium (Beef Lung) (Heparin 10 Unit/Ml 5 Ml Flush) 5 ml FLUSH PRN PRN PRN Reason: Flush Stop: 05/03/22 12:12 Hydrochlorothiazide (Hydrochlorothiazide 25 Mg Tab) 12.5 mg PO QAM [facility] Stop: 04/23/22 08:59 Last Admin: 03/31/22 08:37 Dose: 12.5 mg Ertapenem 1,000 mg/ Syringe 10 mls @ 2 mls/min IV Q24H [facility] Stop: 04/10/22 14:59 Last Admin: 04/02/22 16:29 Dose: 2 mls/min Vancomycin HCl 1,250 mg/ (Sodium Chloride) 275 mls @ 200 mls/hr IV Q12H [facility]; Protocol Stop: 04/10/22 00:00 Last Admin: 04/03/22 12:39 Dose: 200 mls/hr Insulin Aspart (Insulin Aspart Per Unit) 0 units SC ACHS [facility] Stop: 04/29/22 19:39 Last Admin: 04/03/22 13:19 Dose: 5 units Insulin Glargine (Lantus Per Unit Charge) 10 units SQ DAILY [facility] Stop: 05/01/22 08:59 Last Admin: 04/03/22 09:00 Dose: 10 units Lactobacillus Acidophilus (Advanced Probiotic 1250 Mg Capsule) 2 cap PO DAILY [facility] Stop: 04/28/22 08:59 Last Admin: 04/03/22 09:02 Dose: 2 cap Losartan Potassium (Losartan Potassium 50 Mg Tab) 100 mg PO QAM [facility] Stop: 04/20/22 09:59 Last Admin: 04/03/22 09:02 Dose: 100 mg Miscellaneous (Carbohydrates For Hypoglycemia ) 15 - 30 gm PO UD PRN PRN Reason: Hypoglycemia Protocol Stop: 04/29/22 19:35 Miscellaneous Information (Vancomycin Consult Active) 1 each N/A UD PRN PRN Reason: Consult Stop: 04/11/22 17:42 Rosuvastatin Calcium (Rosuvastatin Calcium 10 Mg Tab) 10 mg PO QPM [facility] Stop: 04/13/22 20:59 Last Admin: 04/02/22 20:50 Dose: 10 mg
[2022-04-03] MEDS: ERTAPENEM SODIUM 1,000 MG in SYRINGE 0 ML IV SCH (14:08)
--- NOTE | 2022-04-04 07:48 | Discharge Summary ---
Date of Service April 03, 2022 Admission HPI Per Admitting Provider History obtained from patient, family, and records. Medical history significant for CVA, hypertension, hyperlipidemia, DM2 on oral medications, BPH, past tobacco abuse. Patient hit his right foot on a door jam last week. Note of right small toe wound with worsening redness and swelling. No fever, no chills, no chest pain, no shortness of breath. Patient initially hesitant to have foot checked out by doctor as per [id number]. He later agreed to see his PCP today. Patient directed to ER for evaluation. Daptomycin and Zosyn administered at the ER. Medical History as above Surgical History : Heel surgery Family History : DM, heart disease Personal/Social history : Past tobacco abuse, no EtOH intake, currently unemployed Admission Exam Per Admitting Provider Physical Exam: GENERAL: Comfortable, pleasant, obese, no respiratory distress SKIN: Normal color, warm HEENT: [place] palpebral conjunctivae, no ptosis, dry buccal mucosa NECK : Supple, no tenderness CHEST : CTA, no tenderness HEART : RRR, no obvious murmurs ABDOMEN: Some distention, nontender EXTREMITIES : Indurated right foot necrotic wound, minimal tenderness, no other conspicuous deformities noted NEUROLOGIC : Coherent, no facial asymmetry, no other gross focality Principal Diagnosis Diabetic foot infection with osteomyelitis on right foot, status post amputation of the right fourth and fifth toes, peripheral arterial disease, hypertension, type 2 diabetes mellitus with neuropathy Discharge Data Allergies Allergy/AdvReac Type Severity Reaction Status Date / Time aloe vera Allergy Unknown Unknown Verified 02/17/22 21:01 Consultations 02/17/22 19:49 Consult Podiatry Stat 02/17/22 20:32 ED Decision to Admit Stat 02/19/22 07:58 Consult Vascular Surgery Routine 02/23/22 13:50 Consult Infectious Diseases Routine Procedures Performed Operation Date: 02/18/22 00:05 Actual Procedures p Incision and Drainage Right Foot, Partial excision of Fifth Ray Right foot, Delayed primary closure Right foot wound - Gianluca Jackson DPM, MS Operation Date: 02/21/22 18:00 Actual Procedures p Right Foot Debridement, Wound Vac Application - Gianluca Jackson DPM, MS Operation Date: 02/25/22 10:20 Actual Procedures p Right Leg Arteriogram, Lithotripsy Of Proximal Popliteal Artery, Mechanical Closure of Left Femoral Artery, Moderate Sedation 1028 - 1135 (Left) - Howard Ocampo MD Operation Date: 02/27/22 14:00 Actual Procedures p Amputation Right 4th Toe(Right) - Gianluca Jackson DPM, MS Operation Date: 03/28/22 08:00 Actual Procedures p Application of [place] Skin Graft to Right Forefoot(Right) - Gianluca Jackson DPM, MS Ordered Studies 02/17/22 19:25 CT foot RT w con Urgent 02/18/22 18:43 CTA abd aorta runof w con [CT ang AA runof w inc wo ifdon] Routine 02/25/22 07:11 EV angio LE RT Routine 03/25/22 14:38 US vascular access [US guide vascular access] Routine Hospital Course (1) Diabetic foot ulcer associated with type 2 diabetes mellitus: (1) Diabetic foot infection: (2) Diabetic foot ulcer associated with type 2 diabetes mellitus: (3) Osteomyelitis of right foot: (4) Peripheral arterial disease: (5) Post-operative state: (6) Stroke: (7) Diabetes mellitus: (8) Neuropathy: (9) HTN (hypertension): Plan Diabetic foot infection, Osteomyelitis Status post amputation of the right fourth and fifth toes No overt sepsis POA. 02/18: I&D right foot, partial excision of fifth ray right foot, delayed primary closure right foot wound. By Dr. Gianluca Jackson. 02/21: Right foot debridement, wound VAC application. By Dr. Gianluca Jackson. 02/25: Right leg arteriogram, lithotripsy of proximal popliteal artery, mechanical closure of left femoral artery. By Dr. Howard Ocampo. Middle [employer] Baseball Coach on board, wound VAC changes Thursday. 02/18 wound culture: Reviewed; await 02/24 pathology results. 02/18 pathology results suggestive of focal acute osteomyelitis in amputated right fifth toe. 02/17 blood culture: Negative 02/27: Amputation Right 4th Toe by Dr. Jackson 03/07: special ed assistant placed new dressings. Per picture and documentation, wound bed is healing with some slough present. Vac in place ID evaluated 02/24 Continue vancomycin and ertapenemfor 6 weeks from the date of his last surgery (February 27, 2022) Wound care per Dr. Jackson who removed wound vac on 03/22 Wound vac has been put back in place by WOCN on 03/24 and he will go home with wound vac in place. manager training and development currently in the process of setting up home health Ordered US-guided line, but they would like to wait until the decision to go home vs facility has been made-placement deferred until 03/26 Remains on intravenous Vanco and ertapenem-6 weeks from 02/27/[address] will be changed 04/04 as per the objects conservator Likely to be [facility] the [facility]-discussed with Dr. Jackson regarding discharge with or without wound VAC placement Discussed with Dr. Jackson and the wound VAC will be changed on Thursday that is 04/07 at 2:45 PM at his office The patient remained stable to be transferred to [facility] this afternoon IV antibiotics will be continued until 04/10/2022 HYPERTENSION improved BP control after adding losartan 100mg daily and HCTZ daily. Cont this and amlodipine 10mg. 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 Focal area of high-grade stenosis of the proximal inferior mesenteric artery. Multifocal stenosis within the bilateral lower extremity arterial systems. Distal right posterior tibial artery, distal left anterior tibial artery, and distal bilateral peroneal arteries are likely occluded. Vascular team on board, status post intervention on 02/25 [see above] No significant pain involving the extremities or the abdomen h/o CVA: cont medical management DM II:chronic, current inpatient glucose at goal , cont current management. A1C in September 15 reflects good control. BSG 103-144 DVT prophylaxis:Heparin sq Full code Disposition:Awaiting placement to SNF vs may go home with HH. Will ensure appropriate line in place in preparation for discharge. Medically stable and will be transferred to [facility] this afternoon (2) Osteomyelitis of right foot: (3) Peripheral arterial disease: (4) Post-operative state: (5) Stroke: (6) Diabetes mellitus: (7) Neuropathy: (8) HTN (hypertension): Total Time Total Time Spent Total Time Spent (In Minutes): 45 minutes Discharge Plan Discharge Items Patient Disposition: Transfer [facility] Reason For Visit: DM FOOT INFX Discharge Diagnosis: Diabetic foot infection with osteomyelitis on right foot, status post amputation of the right fourth and fifth toes, peripheral arterial disease, hypertension, type 2 diabetes mellitus with neuropathy Condition on Discharge: Fair Activity: Resume your previous activity Non-emergency contact: Primary Care Provider Call non-emergency contact if: you have any medication questions Follow-up/Referrals: Howard Ocampo MD [Physician] - 04/16/22 9:00 am Jerry Pavon DO [Primary Care Provider] - (Please make an appointment with your primary care physician within 7 days following discharge from the facility) Gianluca Jackson, MAYRAM, MS [Physician] - 04/07/22 2:45 pm Diet: Carb Consistent or DM2 Addtl Attending Provider Instructions: ComycinPlease take precautions to avoid falls Keep your medications as advised Keep appointments with your healthcare providers Will need to continue and 1250 mg IV every 12 hours last dose was given today at 1230 until 04/10/2022 Intravenous ertapenem 1 g IV daily until 04/10/2022 last dose was given at 2:58 PM today Will have CBC, CMP and vancomycin trough level on Thursday Pending Studies at Discharge: No Stand-Alone Forms: My [facility] Skilled Items Patient informed of condition?: Yes DNR: No Discharge Level of Care: Skilled Communicable Disease: No Discharge Prognosis: Stable Lines: PICC Urinary Catheter: No Medications and DC Order Prescriptions: New losartan 50 mg Tablet 100 mg PO QAM 30 Days Qty: 60 0RF amlodipine [Norvasc] 5 mg Tablet 5 mg PO QAM 30 Days Qty: 30 0RF Advanced Probiotic 625 mg (10 billion cell) Capsule 2 cap PO DAILY Qty: 30 0RF hydrochlorothiazide 25 mg Tablet 12.5 mg PO QAM 30 Days Qty: 15 0RF ertapenem [Invanz] 1 gram recon soln 1 g IV DAILY Qty: 7 0RF Rx Instructions: Continue until 04/10/2022 vancomycin 750 mg recon soln 1,250 mg IV Q12H Qty: 14 0RF Rx Instructions: 1250 mg IV Q12H until 04/10/2022 Continued pantoprazole 40 mg tablet,delayed release (DR/EC) 40 mg PO QAM olmesartan 40 mg tablet 40 mg PO QAM dutasteride 0.5 mg capsule 0.5 mg PO QAM rosuvastatin 10 mg tablet 10 mg PO QPM metoprolol tartrate 25 mg tablet 25 mg PO QAM Jardiance 10 mg tablet 10 mg PO QAM clopidogrel 75 mg tablet 75 mg PO QAM ammonium lactate 12 % lotion 1 applic TOPICAL UD PRN (Reason: dry skin on legs) Opurity 1,000-200 mcg Tablet, Sublingual 1 tab PO QAM Discontinued esomeprazole magnesium [address] For Susp In Packet 20 mg PO DAILYBB Discharge Orders: Discharge Order (Routine); Ordered 04/03/22 Ordered By: Reji Barth/Other Patient Handouts: Managing Type 2 Diabetes, Special Foot Care for Diabetes Admission Data Admit Date/Time: 02/17/22 21:51 Attending Provider: Reji Campbell Admit Provider: Anders Guzmán Primary Care Provider: Jerry Pavon Other Providers: [place] ; Dann Wallis at [facility] ; Lakesha Lopez ; Xiomy Bedoya ; [facility] ; Reji Campbell ; [facility] ; Genia Kaplan ; Gianluca Jackson ; Anders Guzmán ; Howard Ocampo ; Marcus Garcia ; Anibal Ross ; Donato Bedoya I. ; Pardeep Aguirre II ; Yahaira Rojas ; Keyur Thornton ; Tobias Le ; Yariel Calle ; Santos Angelo Other Interventions: Discharge Summary Assessment (RN) Last Done: 04/03/22 15:32
--- NOTE | 2022-04-04 15:40 | Hospitalist Progress Note ---
Date of Service April 04, 2022 delayed entry date of service April 01, 2022 Assessment & Plan (1) Diabetic foot infection: (2) Diabetic foot ulcer associated with type 2 diabetes mellitus: Plan: (1) Diabetic foot infection: (2) Diabetic foot ulcer associated with type 2 diabetes mellitus: (3) Osteomyelitis of right foot: (4) Peripheral arterial disease: (5) Post-operative state: (6) Stroke: (7) Diabetes mellitus: (8) Neuropathy: (9) HTN (hypertension): Plan Diabetic foot infection, Osteomyelitis Status post amputation of the right fourth and fifth toes No overt sepsis POA. 02/18: I&D right foot, partial excision of fifth ray right foot, delayed primary closure right foot wound. By Dr. Gianluca Jackson. 02/21: Right foot debridement, wound VAC application. By Dr. Gianluca Jackson. 02/25: Right leg arteriogram, lithotripsy of proximal popliteal artery, mechanical closure of left femoral artery. By Dr. Howard Ocampo. Autocad on board, wound VAC changes Thursday. 02/18 wound culture: Reviewed; await 02/24 pathology results. 02/18 pathology results suggestive of focal acute osteomyelitis in amputated right fifth toe. 02/17 blood culture: Negative 02/27: Amputation Right 4th Toe by Dr. Jackson 03/07: motion picture projectionist placed new dressings. Per picture and documentation, wound bed is healing with some slough present. Vac in place ID evaluated 02/24 Continue vancomycin and ertapenemfor 6 weeks from the date of his last surgery (February 27, 2022) Wound care per Dr. Jackson who removed wound vac on 03/22 Wound vac has been put back in place by WOCHARLES on 03/24 and he will go home with wound vac in place. 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 Focal area of high-grade stenosis of the proximal inferior mesenteric artery. Multifocal stenosis within the bilateral lower extremity arterial systems. Distal right posterior tibial artery, distal left anterior tibial artery, and distal bilateral peroneal arteries are likely occluded. Vascular team on board, status post intervention on 02/25 [see above] No significant pain involving the extremities or the abdomen h/o CVA: cont medical management DM II:chronic, current inpatient glucose at goal , cont current management. A1C in September 15 reflects good control. DVT prophylaxis:Heparin sq Full code Disposition:Awaiting placement to SNF vs may go home with HH. (3) Osteomyelitis of right foot: (4) Peripheral arterial disease: (5) Post-operative state: (6) Stroke: (7) Diabetes mellitus: (8) Neuropathy: (9) HTN (hypertension): Plan Diabetic foot infection, Osteomyelitis Status post amputation of the right fourth and fifth toes No overt sepsis POA. 02/18: I&D right foot, partial excision of fifth ray right foot, delayed primary closure right foot wound. By Dr. Gianluca Jackson. 02/21: Right foot debridement, wound VAC application. By Dr. Gianluca Jackson. 02/25: Right leg arteriogram, lithotripsy of proximal popliteal artery, mechanical closure of left femoral artery. By Dr. Howard Ocampo. Autocad on board, wound VAC changes Thursday. 02/18 wound culture: Reviewed; await 02/24 pathology results. 02/18 pathology results suggestive of focal acute osteomyelitis in amputated right fifth toe. 02/17 blood culture: Negative 02/27: Amputation Right 4th Toe by Dr. Jackson 03/07: motion picture projectionist placed new dressings. Per picture and documentation, wound bed is healing with some slough present. Vac in place ID evaluated 02/24 Continue vancomycin and ertapenem for 6 weeks from the date of his last surgery (February 27, 2022) Wound care per Dr. Jackson who removed wound vac on 03/22 Wound vac has been put back in place by WOCHARLES on 03/24 and he will go home with wound vac in place. geriatric care manager currently in the process of setting up home health Ordered US-guided line, but they would like to wait until the decision to go home vs facility has been made-placement deferred until 03/26 03/26 doing well overall continue Vanco + Ertapenem IV CM on board 03/27 Remained stable Wound VAC in place Continue vancomycin plus ertapenem, to complete 6 weeks from February 27, 2022 geriatric care manager working on arranging home health services patient 03/28 Remained stable Wound VAC in place For skin graft placement today with Dr. Jackson Continue vancomycin plus ertapenem geriatric care manager on board 03/29 Doing well after skin graft placement yesterday Continue vancomycin plus ertapenem Monitor 03/30 stable overall labs ok continue Vanco + Ertapenem HYPERTENSION improved BP control after adding losartan 100mg daily and HCTZ daily. Cont this and amlodipine 10mg. 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 Focal area of high-grade stenosis of the proximal inferior mesenteric artery. Multifocal stenosis within the bilateral lower extremity arterial systems. Distal right posterior tibial artery, distal left anterior tibial artery, and distal bilateral peroneal arteries are likely occluded. Vascular team on board, status post intervention on 02/25 [see above] No significant pain involving the extremities or the abdomen h/o CVA: cont medical management DM II: chronic, current inpatient glucose at goal , cont current management. A1C in September 15 reflects good control. BSG 103-144 DVT prophylaxis:Heparin sq Full code Disposition: Awaiting placement to SNF vs may go home with HH. Will ensure appropriate line in place in preparation for discharge. If home with HH will need to switch to dapto to finish the course for once daily dosing of abx. Admission and Anticipated Discharge Date Admission Date: February 17, 2022 Subjective ff up for DM foot infection, etc seen resting in bed, comfortable states he feels fine overall no chest pain, dyspnea, palpitations, dizziness no abdominal pain, diarrhea no foot or leg pain no other symptoms Review of Systems Review of Systems: all noted and negative except for above Physical Exam Physical Exam: General- oriented x 3, not in distress, speaks in sentences with no effort or accessory muscle use Eyes- anicteric Neck- no JVD Lungs- clear BS BL no crackles Heart- normal rate, regular rhythm; no murmurs Abdomen- normal bowel sounds, nondistended, soft, nontender Extremities- no pretibial edema, no calf tenderness R foot: wound vac in place, no edema/erythema Neuro- alert, oriented x 3; no gross focal neurologic deficits Skin- warm & dry Results & Data Results & Data ([facility]) Vital Signs (Past 12 Hours) all noted and reviewed including below
--- NOTE | 2022-04-14 11:45 | Coding Query ---
CODING QUERY To promote full compliance with coding requirements relating to patient care, provider participation is requested in all cases of physician interventional cardiologist uncertainty. Please assist us with the question(s) below: Coding Question(s): Patient admitted with DM / Osteomyelitis . Had 4th and 5th toes amputated. 02/17 Ortho Consult documented necrotizing fascitis. Please check below the phrase that describes the necrotizing fascitis. Thanks for your help. Dominick Dahl [employer]IVERY [employer] [facility] Physician's Response(s): ____X___ The patient was diagnosed and treated for necrotizing fascitis The patient did not have necrotizing fascitis Cannot clinically determine if the patient had necrotizing fascitis Other: please document: Principal Diagnosis: "that condition established after study, to be chiefly responsible for occasioning the admission of the patient to the hospital for care." Co-Existing Principal Diagnosis: "when two or more diagnoses equally meet the criteria for principal diagnosis as determined by the circumstances of admission, diagnostic work up, and/or therapy provided, and the Alphabetic Index, Tabular List, or another coding guideline does not provide sequencing direction, any one of the diagnoses may be sequenced first." "When the physician has documented what appears to be a current diagnosis in the body of the record, but has not included the diagnosis in the final diagnostic statement, the physician should be asked whether the diagnosis should be added." (Source Coding [facility] 2 QTR90. p3-4) KAL
== END 2022-04-03 16:53 | DRG 616 ==
LOC: ED 15:49 → 3W 21:51 → SUATTDRO 21:51 → 3W 22:42

== ENCOUNTER 2022-07-08 10:33 | Inpatient (IN) ==
[2022-07-08] MEDS ORDERED: CEFEPIME 2,000 MG/20 ML VIAL IV STA (10:57)
[2022-07-08] MEDS: SODIUM CHLORIDE 0.9% 1000ML 1,000 ML IV SCH ×2 (11:00→12:35)
[2022-07-08] MEDS ORDERED: SODIUM CHLORIDE 0.9% 1000ML 1,000 ML IV SCH (11:00)
[2022-07-08] MEDS ORDERED: PIPERACILLIN/TAZOBACTAM 4.5 GM/120 ML BAG IV ONE (11:03)
[2022-07-08 11:19] LABS: Base Excess VBG -11.9 mEq/L; HCO3 VBG 15 mmol/L; Oxygen Saturation VBG < 60.0 %; PCO2 VBG 38 mmHg (38-50); PO2 VBG 28 mmHg; pH VBG 7.21 (7.36-7.41)
[2022-07-08] MEDS: CALCIUM GLUCONATE 1,000 MG/60 ML BAG IV SCH ×3 (11:19→11:44)
[2022-07-08] MEDS ORDERED: CALCIUM GLUCONATE 1000 MG/60 ML NSS IV ONE (11:19)
[2022-07-08] MEDS ORDERED: VANCOMYCIN HCL 1,750 MG in SODIUM CHLORIDE 0.9% 500 ML IV STA (11:21)
[2022-07-08] MEDS ORDERED: CEFEPIME 2,000 MG/20 ML VIAL ONE (11:51)
[2022-07-08 12:31] LABS: Hematocrit (blood only) 39.8 % (42.0-52.0); Mean Corpuscular Hemoglobin 27.1 pg (25.0-34.0); Mean Corpuscular Hgb Conc 30.2 g/dL (32.0-36.0); Mean Platelet Volume 10.8 fL (9.4-12.4); Platelet Count 375 K/uL (130-400); RDW Coefficient of Variation 15.9 % (11.5-14.5); RDW Standard Deviation 52.9 fL (36.4-46.3); Red Blood Count 4.42 M/uL (4.70-6.10); White Blood Count 29.65 K/ul (4.8-10.8)
--- NOTE | 2022-07-08 12:40 | CT Scan Report ---
HEAD CT NONCONTRAST CT DOSE: HISTORY: Sepsis, altered mental status TECHNIQUE: Multiaxial CT images of the head were performed without the use of intravenous contrast. A utomated exposure control was utilized for this study. A dose lowering technique was utilized adheri ng to the principles of ALARA. Comparison: None. Findings: The mastoid air cells are clear. There is near complete opacification of the sphenoid sinus . Focal bony defect at the posterior sphenoid sinus/clivus. This could be due to old postoperative ch sheree. No calvarial fractures identified. The orbits are unremarkable. Punctate calcification within t he felipe. There is no mass, hematoma, midline shift. Atrophy and microvascular ischemic changes are ag ain noted. There are small focal areas of encephalomalacia within the right high convexity likely rep resenting old infarcts. No definite acute infarct identified. Impression: There are small focal areas of encephalomalacia within the right high convexity likely representing o ld infarcts. No definite acute infarct identified. ACT 112: Negative or not required by law. Electronically signed by: Mau Hewitt M.D. 07/08/2022 12:39 PM
--- NOTE | 2022-07-08 12:42 | CT Scan Report ---
CT cervical spine wo con CLINICAL HISTORY: AMS, fall TECHNIQUE: Multidetector row helical CT of the cervical spine was performed without administration of intravenous contrast. Coronal and sagittal reformations were obtained. Automated dose lowering techn iques and/or adjustment according to patient size were utilized for this exam. Comparison: None available at the time of this dictation. FINDINGS: No acute fractures or subluxations are identified. The vertebral body heights and disk spaces are wel l maintained. The alignment is normal. Soft tissues are unremarkable. Incidental note is made of jace apical lucencies and dental caries. IMPRESSION: 1. No evidence of acute bony injury. 2. Dental caries and periapical lucencies which may represent periapical abscesses. ACT 112: Negative or not required by law. Electronically signed by: Charles Milian M.D. 07/08/2022 12:40 PM
--- NOTE | 2022-07-08 12:48 | CT Scan Report ---
CT abd pelvis wo con CLINICAL HISTORY: Sepsis, AMS TECHNIQUE: Helical axial images of the abdomen and pelvis were obtained. Automated dose lowering tech niques and/or adjustment according to patient size were utilized for this exam. This exam was perfor med without intravenous contrast. CT DOSE: 4137.12 mGy.cm COMPARISON: Comparison is made to CT abdomen pelvis 02/18/2022 FINDINGS: Lower chest: No acute abnormality. Liver: Unremarkable. No focal lesions are seen. Gallbladder and biliary tree: Calcified stones are seen in the contracted gallbladder. No intra- or e xtrahepatic biliary ductal dilation. Pancreas: Unremarkable, no focal lesions. Spleen: Unremarkable. Adrenals: Thickening of the adrenal glands noted. Kidneys and ureters: Unremarkable. Bladder: Limited evaluation due to underdistention. Reproductive organs: Unremarkable. Bowel: A prominent stool ball is noted in the rectum with mild thickening of the rectal wall. The cecilia endix is normal. Lymph nodes Retroperitoneal: Unremarkable. Pelvic: Subcentimeter lymph nodes are noted. 13 mm right inguinal lymph node is seen. Mesenteric: Unremarkable. Peritoneum: Normal. Vessels: Atherosclerotic calcifications are seen. Narrowing of the SMA origin is seen. Abdominal wall: Unremarkable. Bones: Degenerative changes in the visualized spine. IMPRESSION: 1. There is rectal wall prominence with a large stool ball which may represent mild stercoral coliti s. Otherwise no acute abnormality is seen. 2. Cholelithiasis without cholecystitis. ACT 112: Negative or not required by law. Electronically signed by: Charles Milian M.D. 07/08/2022 12:45 PM
--- NOTE | 2022-07-08 12:50 | CT Scan Report ---
CT SCAN OF THE RIGHT FOOT WITHOUT IV CONTRAST CLINICAL HISTORY: Sepsis. COMPARISON STUDY: CT scan of the right foot dated 02/17/2022. TECHNIQUE: CT scan of the right foot is performed from the ankle to the base of the foot. Images are reviewed in the axial, sagittal, and coronal planes. IV contrast was not administered for this examin ation. A dose lowering technique was utilized adhering to the principles of ALARA. Note that interpre tation is suboptimal without current plain film correlate. FINDINGS: The skeletal structures are osteopenic. 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 Erosive/destructive change is seen involving th e medial cuneiform on axial image #141 and the base of the first metatarsal on image #139 consistent with osteomyelitis. No additional foci of bony erosion are clearly identified. There is extensive sup erficial and deep soft tissue gas throughout the right foot and ankle. Intraosseous gas is seen throu ghout the tarsal and metatarsal bones. There is diffuse superficial and deep soft tissue edema throug hout the right lower extremity. No organized fluid collection is identified to suggest abscess on thi s unenhanced examination. There is generalized atrophy of the regional musculature. There is atherosc lerotic calcification of regional arteries. The Achilles tendon is intact as imaged. IMPRESSION: 1. Extensive superficial and deep soft tissue gas is seen throughout the right foot and ankle with ex tensive foci of intraosseous gas. This is consistent with necrotizing infection/fasciitis. Emergent s urgical consultation is advised. 2. Superficial and deep soft tissue edema there is seen throughout the visualized right lower extremi ty. There is no organized fluid collection clearly identify to indication abscess. 3. Erosive/destructive change within the medial cuneiform and base of the first metatarsal is typical for osteomyelitis. 4. Postsurgical change as above. ACT 112: Negative or not required by law. Electronically signed by: Jaylan Freeman M.D. 07/08/2022 12:49 PM
--- NOTE | 2022-07-08 12:52 | XRay Report ---
SINGLE VIEW CHEST CLINICAL HISTORY: Sepsis. FINDINGS: An AP, portable, upright chest radiograph is obtained. No prior studies are available for c omparison at the time of dictation. The heart is top normal for projection noting atherosclerotic dori cification of the thoracic aorta. Nonspecific interstitial thickening is likely chronic. There is bib asilar scarring/atelectasis. No airspace consolidation or large pleural effusion is identified. No pn eumothorax is seen. The skeletal structures are osteopenic. The bony thorax is grossly intact. IMPRESSION: No acute cardiopulmonary abnormality. ACT 112: Negative or not required by law. Electronically signed by: Jaylan Freeman M.D. 07/08/2022 12:51 PM
[2022-07-08] MEDS ORDERED: CLINDAMYCIN/D5W 900 MG/50 ML PREMIX BAG IV STA (12:56)
[2022-07-08 12:57] LABS: INR 1.1 (0.9-1.1); Partial Thromboplastin Ratio 0.7; Partial Thromboplastin Time 20.1 Seconds (21.0-31.0); Prothrombin Time 11.9 Seconds (9.0-12.0)
--- NOTE | 2022-07-08 12:58 | CT Scan Report ---
CT SCAN OF THE CHEST WITHOUT IV CONTRAST CLINICAL HISTORY: Sepsis. Change in mental status. COMPARISON STUDY: No priors. TECHNIQUE: CT scan of the thorax was performed from the thoracic inlet to the upper abdomen. Images are reviewed in the axial, sagittal, and coronal planes. IV contrast was not administered for this ex amination as per the referring clinician. A dose lowering technique was utilized adhering to the charisse roselyn of TAMIR. The examination is compromised by motion artifact. There is also streak artifact fr om the arms which could not be elevated above the chest. FINDINGS: Thyroid: Imaged portions of the thyroid gland are normal in size and attenuation. Thoracic aorta: There is atherosclerotic calcification of the thoracic aorta, which is normal in kar[place] and demonstrates standard 3-vessel arch anatomy. Heart: The heart is normal in size and without pericardial effusion. There are coronary artery calcif ications. Lungs and pleural spaces: Evaluation of the lung parenchyma is compromised by motion artifact. No air space consolidation or pleural effusion is identified. Secretions are noted in the trachea. Mediastinum: There is no mediastinal lymphadenopathy. Emani: Not well assessed without IV contrast. Axillae: There is no axillary lymphadenopathy. Upper abdomen: There are calcified gallstones. A small hiatal hernia is noted. Skeletal structures: The skeletal structures are osteopenic. No lytic or blastic bony lesions are see n. IMPRESSION: 1. Streak and motion compromised examination. 2. There is no airspace consolidation or pleural effusion. 3. Cholelithiasis. 4. Additional findings as above. ACT 112: Negative or not required by law. Electronically signed by: Jaylan Freeman M.D. 07/08/2022 12:55 PM
[2022-07-08 13:01] LABS: Basophils # (auto) 0.19 K/uL (0-0.2); Basophils % (auto) 0.6 %; Eosinophils # (auto) 0.01 K/uL (0-0.50); Immature Granulocytes # (auto) 1.17 K/uL (0.01-0.20); Immature Granulocytes % (auto) 3.9 %; Lymphocytes # (auto) 1.22 K/uL (1.2-3.4); Lymphocytes % (auto) 4.1 %; Monocytes # (auto) 1.39 K/uL (0.11-0.59); Monocytes % (auto) 4.7 %; Neutrophils # (auto) 25.67 K/uL (1.40-6.50); Neutrophils % (auto) 86.7 %
[2022-07-08 13:07] LABS: Albumin Level 2.7 gm/dl (3.4-5.0); BUN Creatinine Ratio 40.1 (10-20); Bilirubin Direct 0.1 mg/dl (0-0.2); Bilirubin,Total 0.7 mg/dl (0.2-1.0); Calcium 10.3 mg/dl (8.5-10.1); Creatinine Clr Calc Pharmacy 44.3 ml/min; Est GFR (African American) 41.9 ml/min; Est GFR (Non-African American) 36.1 ml/min; Magnesium 2.7 mg/dl (1.7-2.4); Potassium 4.9 mmol/L (3.5-5.1); Total Protein 7.5 gm/dl (6.0-8.3); Troponin I High Sensitivity 98.1 pg/ml (0-20)
[2022-07-08 13:09] LABS: Appearance Urine Cloudy (Clear); Bilirubin Urine Negative (Negative); Blood Urine 2+ (Negative); Color Urine Yellow; Glucose Urine UA 3+ (Negative); Ketones Urine 1+ (Negative); Leukocyte Esterase Urine 1+ (Negative); Nitrite Urine Negative (Negative); Protein Urine Negative (Negative); RBC Urine Automated 0-4 /hpf (0-4); Urobilinogen Urine Negative (Negative); WBC Urine Automated >30 /hpf (0-5)
[2022-07-08] MEDS ORDERED: DEXTROSE 50% 50 ML SYRINGE IV PRN (13:20)
[2022-07-08] MEDS ORDERED: CARBOHYDRATES FOR HYPOGLYCEMIA PO PRN (13:20)
[2022-07-08] MEDS ORDERED: GLUCOSE 40% GEL 15 GM TUBE PO PRN (13:20)
[2022-07-08] MEDS ORDERED: GLUCOSE 10 TAB/TUBE PO PRN (13:20)
[2022-07-08] MEDS ORDERED: HHS GOAL RANGE 250-350 mg/dl ONE ×2 (13:20→20:23)
[2022-07-08] MEDS ORDERED: GLUCAGON FOR INJ 1 MG VIAL SQ PRN (13:20)
[2022-07-08 13:28] LABS: Bacteria Urine Automated 2+ (Negative)
[2022-07-08] MEDS ORDERED: NovoLIN-R BOLUS FROM BAG IV ONE (13:29)
[2022-07-08] MEDS ORDERED: INSULIN REGULAR 250 UNITS in SODIUM CHLORIDE 0.9% 247.5 ML IV SCH ×2 (13:30→20:23)
--- NOTE | 2022-07-08 13:36 | Emergency Department Note ---
Impression & Plan Necrotizing fasciitis, Osteomyelitis of right foot, Sepsis, Hyperosmolar hyperglycemic state (HHS), High anion gap metabolic acidosis, Metabolic encephalopathy, Acute renal failure, Urinary tract infection, Hypothermia ED Provider Note NAME: YASEMIN HADDAD AGE: 61 SEX: M ARRIVES VIA: Walk-In INFORMANT: Patient ED PROVIDER(S): Torrey Rodriguez MD CHIEF COMPLAINT: Altered mental status PLAN: Disposition: Admit MEDICAL DECISION MAKING: The patient is a 61-year-old gentleman with a past medical history of medical noncompliance, diabetes, hypertension, hyperlipidemia, CVA, PAD, diabetic foot infection, necrotizing fasciitis, osteomyelitis with recent admission in March 2022 for osteomyelitis and necrotizing fasciitis where he was treated with IV antibiotics and left foot toe amputation who presents to the emergency department via private vehicle for altered mental status that worsened acutely prior to arrival. Family reports that the patient had a fall last week and since then has been laying in bed all day not wanting to get up or seek medical attention. They report he was able to make his own decisions up until just coming to the emergency department. They report that he understood that he had missed 2 appointments with the disability office and encouraged family to bring him in there today so he could have his appointment but they report they arrived very late and could not be seen. It was at this time that they noted that his mental status had significantly worsened and he was not speaking. On arrival the patient is critically ill-appearing, hypotensive, awake but nonverbal and encephalopathic. He appears to move all extremities equally but does not follow commands. He is disheveled and covered in stool with full briefs. His left foot wound dressing is saturated and foul-smelling purulent/serous discharge with tunneling ulcer of the dorsal midfoot and surrounding crepitus. Sepsis protocols were initiated and the patient was treated with IV fluid hydration with 30 cc+/KG and broad-spectrum antibiotics with Zosyn and vancomycin and clindamycin added given necrotizing fasciitis. Chemistry on i- STAT initially demonstrated potassium of 9 and given the patient's critical condition he did receive 3 g of calcium gluconate. However likely reflect a component of hemolysis as serum values returned with a potassium of 4.9. WBC was 29K with neutrophil predominance and left shift consistent with sepsis presentation. H/H similar to prior. Platelets within normal limits. VBG with pH of 7.21 likely reflecting lactic acidosis with lactate of 3.7 but also a component of DKA though his presentation is most consistent with HHS with a glucose of 768 with a sodium of 149 that corrects to 160 reflecting a approximate 8 L free water deficit. Serum Osm 389. Bicarb is 16 with anion gap of 22. LFTs unremarkable. Ammonia within normal limits. CPK within normal limits. High-sensitivity troponin 98.1, nonspecific in the setting of his critical illness. Procalcitonin is elevated at 1.25 consistent with sepsis. UA also suggest UTI with WBCs and 2+ bacteria. Extensive CT imaging performed of the head, neck, chest and abdomen pelvis in addition to right foot. Note is made of incidental dental caries with possibility of small periapical abscesses likely incidental. Note of constipation and possible stercoral colitis is also seen also likely incidental. Acute clinically significant findings relate to CT of the right foot demonstrates evidence of necrotizing fasciitis and osteomyelitis. Case was discussed with Dr. Jackson, orthopedic/podiatry who had treated the patient on his prior admission. Appreciate consultation and recommendations. He will notify the OR for planned procedure. Case was discussed with Xiomy Bedoya [facility] PAC with Dr. Dai, [facility] hospitalist, who will evaluate the patient for admission. Treatment for HHS/DKA was initiated with insulin drip as well as maintenance fluids with 1/2NSS+20Meq Kcl @ 250/hr. The patient was reevaluated repeatedly emergency department and showed progressive stabilization with blood pressure responding to additional 500 cc LR bolus after drifting down to 80s/50s. Respiratory status/oxygenation remained stable. The patient was noted to become mildly hypothermic with a rectal temperature down to 35.4 and so warming blanket and fluid warmer initiated with subsequent improvement in core body temperature. Mental status also gradually improving where the patient was verbal and following simple commands. Glucose showing gradual improvement to the 500s. Lactic acid did clear from 3.7 down to 1.9. The patient was subsequently transferred to the OR for additional management. Triage Nursing notes reviewed and agree them. Prior/outside medical records reviewed Vital Signs: reviewed Differential diagnosis: Sepsis, UTI, pneumonia, metabolic, electrolyte abnormalities, cardiac sources, intracerebral event, toxicologic, neurologic, as well as other pathologies. ER treatment provided: See below. Diagnostics interpreted by me: ECG: Normal sinus rhythm, 77 bpm, no ectopy, no overt ST elevation or depression, QTc 452, QRS 70. Cardiac Monitoring: An order for continuous cardiac monitoring was placed and demonstrated Normal sinus rhythm, 77 bpm, no ectopy. Laboratory studies: See below Imaging studies: See below Consultation(s): Dr. Jackson, orthopedic/podiatry Xiomy Bedoya [facility] PAC with Dr. Dai [facility] hospitalist HPI: The patient is a 61-year-old gentleman with a past medical history of medical noncompliance, diabetes, hypertension, hyperlipidemia, CVA, PAD, diabetic foot infection, necrotizing fasciitis, osteomyelitis with recent adm ission in March 2022 for osteomyelitis and necrotizing fasciitis where he was treated with IV antibiotics and left foot toe amputation who presents to the emergency department via private vehicle for altered mental status that worsened acutely prior to arrival. Family reports that the patient had a fall last week and since then has been laying in bed all day not wanting to get up or seek medical attention. They report he was able to make his own decisions up until just coming to the emergency department. They report that he understood that he had missed 2 appointments with the disability office and encouraged family to bring him in there today so he could have his appointment but they report they arrived very late and could not be seen. It was at this time that they noted that his mental status had significantly worsened and he was not speaking. ROS: See above HPI for pertinent positives & negatives. A total of 10 systems reviewed and were otherwise negative. VITALS:See Below PHYSICAL EXAMINATION: GENERAL: Awake but encephalopathic, nonverbal/mumbles only, disheveled/unkempt, covered in stool, critically ill appearing. HENT: Normocephalic, atraumatic. Oropharynx with dry cracked mucous membranes and poor dentition. No tongue elevation or trismus. No facial edema. EYES: Normal conjunctiva. Sclera non-icteric. EOMI. No nystamgus. PEARRL. NECK: Supple. No nuchal rigidity. FROM. No JVD. RESPIRATORY: Clear to auscultation. CARDIAC: Regular rate, normal rhythm. Extremities warm and well perfused. Pulses equal. ABDOMEN: Soft, non-distended. No tenderness to palpation. No rebound or guarding. No masses. RECTAL: Deferred. MUSCULOSKELETAL: Chest examination reveals no tenderness. The back is s ymmetrical on inspection without obvious abnormality. There is no CVA tenderness to palpation. No joint edema. LOWER EXTREMITIES: Calves are equal size bilaterally and non-tender. No edema. No discoloration. NEURO: Encephalopathic, eyes open, nonverbal/mumbles only, moves all extremities equally with generalized weakness but does not follow commands. SKIN: No rash or jaundice noted. ED COURSE: Critical Care: I have personally spent greater than 145 minutes of critical care time in the direct management of this patient. This includes bedside care, interpretation of diagnostic studies, and testing, discussion with consultants, patient, and family members, and other required patient management activities. This 145 minutes is in excess of all separately billable procedures. Torrey Rodriguez MD Past Med/Surg History Medical History Amputation toe Right 4th Toe- 02/27/22 BPH (benign prostatic hyperplasia) Cellulitis of toe of right foot Diabetes mellitus Diabetic ulcer of right fifth toe Dyslipidemia Essential hypertension Former smoker GERD (gastroesophageal reflux disease) Hyponatremia Mixed hyperlipidemia Neuropathy Obesity Osteomyelitis of right foot Peripheral arterial disease S/P arteriogram of extremity Right leg, lithotripsy of proximal popliteal artery, mechanical closure of left femoral artery, 02/25/22 Stroke July 2020 Right upper extremity weakness Surgical complication involving skin Application of [place] Graft to Right Forefoot-03/28/22 Surgical History History of incision and drainage partial excision of fifth ray of right foot, delayed primary closure 02/18/22 S/P debridement Right foot debridement, wound vac application 02/21/22 Family History Other Diabetes Social History Smoking Status: Unknown if ever smoked Hx Alcohol Use: No Hx Substance Use: No Preferred Language: [place] Communication Ability: Effective 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 Required: No Beliefs That Will Affect Care: None marital status: Single Current Living Situation: Family Current Living Situation Comment: Nephew How many Children do You have: 9 Feels Safe at Home: Yes Assistive Devices: Brace/Splint/Immobilizer, Walker and Wheelchair Allergies Allergies Allergy/AdvReac Type Severity Reaction Status Date / Time aloe vera Allergy Unknown Unknown Verified 07/08/22 11:58 Sulfa (Sulfonamide AdvReac Mild Nausea Verified 07/08/22 11:58 Antibiotics) Home Meds Home Medications Medication Instructions Recorded Confirmed ammonium lactate 12 % lotion 1 applic topical UD PRN dry skin 02/17/22 07/08/22 on legs clopidogrel 75 mg tablet 75 mg PO QAM 02/17/22 07/08/22 dutasteride 0.5 mg capsule 0.5 mg PO QAM 02/17/22 07/08/22 empagliflozin 10 mg tablet 10 mg PO QAM 02/17/22 07/08/22 (Jardiance) metoprolol tartrate 25 mg tablet 25 mg PO QAM 02/17/22 07/08/22 olmesartan 40 mg tablet 40 mg PO QAM 02/17/22 07/08/22 pantoprazole 40 mg tablet,delayed 40 mg PO QAM 02/17/22 07/08/22 release rosuvastatin 10 mg tablet 10 mg PO QPM 02/17/22 07/08/22 amlodipine 5 mg tablet 5 mg PO DAILY 06/23/22 07/08/22 folic acid 1 mg tablet 0 mg PO DAILY 07/08/22 07/08/22 vitamin B complex 1 tab PO DAILY 07/08/22 07/08/22 Results & Data (ED) Vital Signs Vital Signs - 24 hr 07/08/22 10:38 07/08/22 11:13 07/08/22 10:57 Temperature 36.0 C L Temperature Source Temporal Artery Scan Pulse Rate 86 Pulse Rate [Apical] Pulse Rate from SpO2 Sensor Respiratory Rate 34 H Respiratory Effort / Characteristics Non-Labored Spontaneous Short of Breath Respiratory Depth Shallow Respiratory Pattern Tachypnea Blood Pressure Blood Pressure [Left Arm] Blood Pressure Mean Blood Pressure Mean [Left Arm] Pulse Oximetry 100 Oxygen Delivery Method Room Air Sepsis Recent Fever Within 48 Hours No Sepsis New/Unexplained Change in Mental Status Yes Sepsis Action Taken by Nursing Physician Notified 07/08/22 10:57 07/08/22 10:51 07/08/22 10:55 Temperature 35.5 C L Temperature Source Core Pulse Rate 84 85 Pulse Rate [Apical] Pulse Rate from SpO2 Sensor Respiratory Rate 18 18 Respiratory Effort / Characteristics Respiratory Depth Respiratory Pattern Blood Pressure Blood Pressure [Left Arm] Blood Pressure Mean Blood Pressure Mean [Left Arm] Pulse Oximetry 100 100 Oxygen Delivery Method Room Air Sepsis Recent Fever Within 48 Hours Sepsis New/Unexplained Change in Mental Status Sepsis Action Taken by Nursing 07/08/22 11:00 07/08/22 11:01 07/08/22 11:01 Temperature Temperature Source Pulse Rate 86 84 Pulse Rate [Apical] Pulse Rate from SpO2 Sensor Respiratory Rate 20 18 Respiratory Effort / Characteristics Respiratory Depth Respiratory Pattern Blood Pressure 91/56 L Blood Pressure [Left Arm] Blood Pressure Mean 67 Blood Pressure Mean [Left Arm] Pulse Oximetry 100 100 Oxygen Delivery Method Sepsis Recent Fever Within 48 Hours Sepsis New/Unexplained Change in Mental Status Sepsis Action Taken by Nursing 07/08/22 11:05 07/08/22 11:08 07/08/22 11:08 Temperature 36.3 C L Temperature Source Pulse Rate 84 83 Pulse Rate [Apical] Pulse Rate from SpO2 Sensor Respiratory Rate 20 18 Respiratory Effort / Characteristics Respiratory Depth Respiratory Pattern Blood Pressure 95/50 L Blood Pressure [Left Arm] Blood Pressure Mean 65 Blood Pressure Mean [Left Arm] Pulse Oximetry Oxygen Delivery Method Sepsis Recent Fever Within 48 Hours Sepsis New/Unexplained Change in Mental Status Sepsis Action Taken by Nursing 07/08/22 11:10 07/08/22 11:10 07/08/22 11:15 Temperature 36.4 C L 35.1 C L Temperature Source Pulse Rate 83 85 Pulse Rate [Apical] Pulse Rate from SpO2 Sensor 85 Respiratory Rate 20 19 Respiratory Effort / Characteristics Respiratory Depth Respiratory Pattern Blood Pressure 115/36 L Blood Pressure [Left Arm] Blood Pressure Mean 62 Blood Pressure Mean [Left Arm] Pulse Oximetry 100 Oxygen Delivery Method Sepsis Recent Fever Within 48 Hours Sepsis New/Unexplained Change in Mental Status Sepsis Action Taken by Nursing 07/08/22 11:20 07/08/22 11:21 07/08/22 11:21 Temperature 36.1 C L 35.4 C L Temperature Source Pulse Rate 88 88 Pulse Rate [Apical] Pulse Rate from SpO2 Sensor 89 89 Respiratory Rate 25 H 29 H Respiratory Effort / Characteristics Respiratory Depth Respiratory Pattern Blood Pressure 100/75 Blood Pressure [Left Arm] Blood Pressure Mean 83 Blood Pressure Mean [Left Arm] Pulse Oximetry 100 100 Oxygen Delivery Method Sepsis Recent Fever Within 48 Hours Sepsis New/Unexplained Change in Mental Status Sepsis Action Taken by Nursing 07/08/22 11:25 07/08/22 11:30 07/08/22 11:35 Temperature 36.1 C L 36.1 C L Temperature Source Pulse Rate 87 88 Pulse Rate [Apical] Pulse Rate from SpO2 Sensor Respiratory Rate 25 H 14 Respiratory Effort / Characteristics Respiratory Depth Respiratory Pattern Blood Pressure 102/53 L Blood Pressure [Left Arm] Blood Pressure Mean 69 Blood Pressure Mean [Left Arm] Pulse Oximetry Oxygen Delivery Method Sepsis Recent Fever Within 48 Hours Sepsis New/Unexplained Change in Mental Status Sepsis Action Taken by Nursing 07/08/22 11:35 07/08/22 11:40 07/08/22 11:40 Temperature 36.0 C L 36.0 C L Temperature Source Pulse Rate 82 81 Pulse Rate [Apical] Pulse Rate from SpO2 Sensor 82 86 Respiratory Rate 18 27 H Respiratory Effort / Characteristics Respiratory Depth Respiratory Pattern Blood Pressure 112/56 L Blood Pressure [Left Arm] Blood Pressure Mean 74 Blood Pressure Mean [Left Arm] Pulse Oximetry 97 100 Oxygen Delivery Method Sepsis Recent Fever Within 48 Hours Sepsis New/Unexplained Change in Mental Status Sepsis Action Taken by Nursing 07/08/22 11:45 07/08/22 11:49 07/08/22 11:49 Temperature 35.8 C L Temperature Source Pulse Rate 81 84 Pulse Rate [Apical] Pulse Rate from SpO2 Sensor 82 Respiratory Rate 30 H 20 Respiratory Effort / Characteristics Respiratory Depth Respiratory Pattern Blood Pressure 132/81 Blood Pressure [Left Arm] Blood Pressure Mean 98 Blood Pressure Mean [Left Arm] Pulse Oximetry 100 100 Oxygen Delivery Method Sepsis Recent Fever Within 48 Hours Sepsis New/Unexplained Change in Mental Status Sepsis Action Taken by Nursing 07/08/22 11:50 07/08/22 11:50 07/08/22 11:55 Temperature Temperature Source Pulse Rate 83 Pulse Rate [Apical] Pulse Rate from SpO2 Sensor Respiratory Rate 19 Respiratory Effort / Characteristics Respiratory Depth Respiratory Pattern Blood Pressure 133/69 141/60 H Blood Pressure [Left Arm] Blood Pressure Mean 90 87 Blood Pressure Mean [Left Arm] Pulse Oximetry 100 Oxygen Delivery Method Sepsis Recent Fever Within 48 Hours Sepsis New/Unexplained Change in Mental Status Sepsis Action Taken by Nursing 07/08/22 11:55 07/08/22 12:00 07/08/22 12:00 Temperature Temperature Source Pulse Rate 83 83 Pulse Rate [Apical] Pulse Rate from SpO2 Sensor 81 81 Respiratory Rate 17 Respiratory Effort / Characteristics Respiratory Depth Respiratory Pattern Blood Pressure 99/66 L Blood Pressure [Left Arm] Blood Pressure Mean 77 Blood Pressure Mean [Left Arm] Pulse Oximetry 100 100 Oxygen Delivery Method Sepsis Recent Fever Within 48 Hours Sepsis New/Unexplained Change in Mental Status Sepsis Action Taken by Nursing 07/08/22 12:24 07/08/22 12:25 07/08/22 12:30 Temperature 35.4 C L 35.5 C L 35.5 C L Temperature Source Pulse Rate 83 82 81 Pulse Rate [Apical] Pulse Rate from SpO2 Sensor Respiratory Rate 12 24 23 Respiratory Effort / Characteristics Respiratory Depth Respiratory Pattern Blood Pressure Blood Pressure [Left Arm] Blood Pressure Mean Blood Pressure Mean [Left Arm] Pulse Oximetry Oxygen Delivery Method Sepsis Recent Fever Within 48 Hours Sepsis New/Unexplained Change in Mental Status Sepsis Action Taken by Nursing 07/08/22 12:34 07/08/22 12:34 07/08/22 12:35 Temperature 35.5 C L 35.5 C L Temperature Source Pulse Rate 77 77 Pulse Rate [Apical] Pulse Rate from SpO2 Sensor Respiratory Rate 24 29 H Respiratory Effort / Characteristics Respiratory Depth Respiratory Pattern Blood Pressure 122/68 Blood Pressure [Left Arm] Blood Pressure Mean 86 Blood Pressure Mean [Left Arm] Pulse Oximetry Oxygen Delivery Method Sepsis Recent Fever Within 48 Hours Sepsis New/Unexplained Change in Mental Status Sepsis Action Taken by Nursing 07/08/22 12:40 07/08/22 12:40 07/08/22 12:45 Temperature 35.5 C L Temperature Source Pulse Rate 76 Pulse Rate [Apical] Pulse Rate from SpO2 Sensor 76 Respiratory Rate 22 Respiratory Effort / Characteristics Respiratory Depth Respiratory Pattern Blood Pressure 110/66 113/51 L Blood Pressure [Left Arm] Blood Pressure Mean 80 71 Blood Pressure Mean [Left Arm] Pulse Oximetry 98 Oxygen Delivery Method Sepsis Recent Fever Within 48 Hours Sepsis New/Unexplained Change in Mental Status Sepsis Action Taken by Nursing 07/08/22 12:45 07/08/22 12:50 07/08/22 12:50 Temperature 35.5 C L 35.4 C L Temperature Source Pulse Rate 76 75 Pulse Rate [Apical] Pulse Rate from SpO2 Sensor 76 75 Respiratory Rate 22 18 Respiratory Effort / Characteristics Respiratory Depth Respiratory Pattern Blood Pressure 102/61 Blood Pressure [Left Arm] Blood Pressure Mean 74 Blood Pressure Mean [Left Arm] Pulse Oximetry 98 100 Oxygen Delivery Method Sepsis Recent Fever Within 48 Hours Sepsis New/Unexplained Change in Mental Status Sepsis Action Taken by Nursing 07/08/22 13:29 07/08/22 12:55 07/08/22 12:55 Temperature 35.7 C L 35.4 C L Temperature Source Core Pulse Rate 76 Pulse Rate [Apical] Pulse Rate from SpO2 Sensor 77 Respiratory Rate 24 Respiratory Effort / Characteristics Respiratory Depth Respiratory Pattern Blood Pressure 109/62 Blood Pressure [Left Arm] Blood Pressure Mean 77 Blood Pressure Mean [Left Arm] Pulse Oximetry 98 Oxygen Delivery Method Sepsis Recent Fever Within 48 Hours Sepsis New/Unexplained Change in Mental Status Sepsis Action Taken by Nursing 07/08/22 13:00 07/08/22 13:00 07/08/22 13:05 Temperature 35.4 C L Temperature Source Pulse Rate 77 Pulse Rate [Apical] Pulse Rate from SpO2 Sensor 77 Respiratory Rate 18 Respiratory Effort / Characteristics Respiratory Depth Respiratory Pattern Blood Pressure 127/74 118/64 Blood Pressure [Left Arm] Blood Pressure Mean 91 82 Blood Pressure Mean [Left Arm] Pulse Oximetry 100 Oxygen Delivery Method Sepsis Recent Fever Within 48 Hours Sepsis New/Unexplained Change in Mental Status Sepsis Action Taken by Nursing 07/08/22 13:05 07/08/22 13:10 07/08/22 13:10 Temperature 35.4 C L 35.4 C L Temperature Source Pulse Rate 76 75 Pulse Rate [Apical] Pulse Rate from SpO2 Sensor 76 75 Respiratory Rate 17 23 Respiratory Effort / Characteristics Respiratory Depth Respiratory Pattern Blood Pressure 115/70 Blood Pressure [Left Arm] Blood Pressure Mean 85 Blood Pressure Mean [Left Arm] Pulse Oximetry 100 100 Oxygen Delivery Method Sepsis Recent Fever Within 48 Hours Sepsis New/Unexplained Change in Mental Status Sepsis Action Taken by Nursing 07/08/22 13:15 07/08/22 13:15 07/08/22 13:20 Temperature 35.3 C L Temperature Source Pulse Rate 77 Pulse Rate [Apical] Pulse Rate from SpO2 Sensor 76 Respiratory Rate 23 Respiratory Effort / Characteristics Respiratory Depth Respiratory Pattern Blood Pressure 115/66 144/72 H Blood Pressure [Left Arm] Blood Pressure Mean 82 96 Blood Pressure Mean [Left Arm] Pulse Oximetry 100 Oxygen Delivery Method Sepsis Recent Fever Within 48 Hours Sepsis New/Unexplained Change in Mental Status Sepsis Action Taken by Nursing 07/08/22 13:20 07/08/22 13:25 07/08/22 13:25 Temperature 35.3 C L 35.3 C L Temperature Source Pulse Rate 77 78 Pulse Rate [Apical] Pulse Rate from SpO2 Sensor 77 78 Respiratory Rate 23 20 Respiratory Effort / Characteristics Respiratory Depth Respiratory Pattern Blood Pressure 133/85 Blood Pressure [Left Arm] Blood Pressure Mean 101 Blood Pressure Mean [Left Arm] Pulse Oximetry 100 99 Oxygen Delivery Method Sepsis Recent Fever Within 48 Hours Sepsis New/Unexplained Change in Mental Status Sepsis Action Taken by Nursing 07/08/22 13:30 07/08/22 13:35 07/08/22 13:40 Temperature 35.4 C L 35.4 C L 35.5 C L Temperature Source Pulse Rate 80 80 80 Pulse Rate [Apical] Pulse Rate from SpO2 Sensor 81 81 80 Respiratory Rate 17 24 24 Respiratory Effort / Characteristics Respiratory Depth Respiratory Pattern Blood Pressure Blood Pressure [Left Arm] Blood Pressure Mean Blood Pressure Mean [Left Arm] Pulse Oximetry 100 100 96 Oxygen Delivery Method Sepsis Recent Fever Within 48 Hours Sepsis New/Unexplained Change in Mental Status Sepsis Action Taken by Nursing 07/08/22 13:45 07/08/22 13:50 07/08/22 13:55 Temperature 35.5 C L 35.6 C L 35.6 C L Temperature Source Pulse Rate 78 78 79 Pulse Rate [Apical] Pulse Rate from SpO2 Sensor 78 78 79 Respiratory Rate 13 22 21 Respiratory Effort / Characteristics Respiratory Depth Respiratory Pattern Blood Pressure Blood Pressure [Left Arm] Blood Pressure Mean Blood Pressure Mean [Left Arm] Pulse Oximetry 100 98 99 Oxygen Delivery Method Sepsis Recent Fever Within 48 Hours Sepsis New/Unexplained Change in Mental Status Sepsis Action Taken by Nursing 07/08/22 14:00 07/08/22 14:05 07/08/22 14:05 Temperature 35.7 C L 35.7 C L Temperature Source Pulse Rate 79 79 Pulse Rate [Apical] Pulse Rate from SpO2 Sensor 79 79 Respiratory Rate 21 20 Respiratory Effort / Characteristics Respiratory Depth Respiratory Pattern Blood Pressure 99/54 L Blood Pressure [Left Arm] Blood Pressure Mean 69 Blood Pressure Mean [Left Arm] Pulse Oximetry 100 97 Oxygen Delivery Method Sepsis Recent Fever Within 48 Hours Sepsis New/Unexplained Change in Mental Status Sepsis Action Taken by Nursing 07/08/22 15:03 07/08/22 15:14 07/08/22 15:36 Temperature Temperature Source Pulse Rate 79 Pulse Rate [Apical] 79 75 Pulse Rate from SpO2 Sensor Respiratory Rate 16 18 Respiratory Effort / Characteristics Respiratory Depth Respiratory Pattern Blood Pressure Blood Pressure [Left Arm] 102/55 L 88/51 L Blood Pressure Mean Blood Pressure Mean [Left Arm] 70 63 Pulse Oximetry 100 100 Oxygen Delivery Method Room Air Room Air Sepsis Recent Fever Within 48 Hours Sepsis New/Unexplained Change in Mental Status Sepsis Action Taken by Nursing 07/08/22 15:47 07/08/22 16:17 07/08/22 16:30 Temperature 36.7 C 36.7 C Temperature Source Nicole Cath ( Temp Sensing) Nicole Cath ( Temp Sensing) Pulse Rate Pulse Rate [Apical] 75 77 Pulse Rate from SpO2 Sensor Respiratory Rate 23 33 H Respiratory Effort / Characteristics Respiratory Depth Normal Respiratory Pattern Blood Pressure Blood Pressure [Left Arm] 98/53 L 93/48 L Blood Pressure Mean Blood Pressure Mean [Left Arm] 68 63 Pulse Oximetry 100 98 Oxygen Delivery Method Room Air Sepsis Recent Fever Within 48 Hours Sepsis New/Unexplained Change in Mental Status Sepsis Action Taken by Nursing 07/08/22 16:42 Temperature Temperature Source Pulse Rate 76 Pulse Rate [Apical] Pulse Rate from SpO2 Sensor Respiratory Rate 18 Respiratory Effort / Characteristics Respiratory Depth Respiratory Pattern Blood Pressure 98/49 L Blood Pressure [Left Arm] Blood Pressure Mean Blood Pressure Mean [Left Arm] Pulse Oximetry 98 Oxygen Delivery Method Room Air Sepsis Recent Fever Within 48 Hours Sepsis New/Unexplained Change in Mental Status Sepsis Action Taken by Nursing Laboratory Data Attestation: I reviewed the patient's lab results. 07/08/22 12:01 07/08/22 12:01 Lab Results 07/08/22 07/08/22 07/08/22 Range/Units 10:46 10:59 11:05 WBC Cancelled RBC Cancelled Hgb Cancelled Hct Cancelled MCV Cancelled MCH Cancelled MCHC Cancelled RDW Std Deviation Cancelled RDW Coeff of Ahsan Cancelled Plt Count Cancelled MPV Cancelled Immature Gran % (Auto) Cancelled Neut % (Auto) Cancelled Lymph % (Auto) Cancelled [place] % (Auto) Cancelled Eos % (Auto) Cancelled Baso % (Auto) Cancelled Neut # (Auto) Cancelled Lymph # (Auto) Cancelled [place] # (Auto) Cancelled Eos # (Auto) Cancelled Baso # (Auto) Cancelled Immature Gran # (Auto) Cancelled Absolute Nucleated RBC Cancelled Nucleated RBC % (auto) Cancelled Neutrophils % (Manual) Cancelled Band Neutrophils % Cancelled Lymphocytes % (Manual) Cancelled Prolymphocyte % Cancelled Reactive Lymphs % (Man) Cancelled Monocytes % (Manual) Cancelled Eosinophils % (Manual) Cancelled Basophils % (Manual) Cancelled Metamyelocytes % (Man) Cancelled Myelocytes % (Man) Cancelled Promyelocytes % (Man) Cancelled Blast Cells % (Manual) Cancelled Plasma Cell % (Manual) Cancelled Other Cells % Cancelled Nucleated RBC % Cancelled Neutrophils # (Manual) Cancelled Band Neutrophils # Cancelled Total Absolute Neuts Cancelled Lymphocytes # (Manual) Cancelled Prolymphocyte # Cancelled Reactive Lymphs # Cancelled Total Abs Lymphocytes Cancelled Monocytes # (Manual) Cancelled Eosinophils # (Manual) Cancelled Basophils # (Manual) Cancelled Metamyelocytes # (Man) Cancelled Myelocytes # (Manual) Cancelled Promyelocytes # (Man) Cancelled Blast Cells # (Man) Cancelled Plasma Cell # (Manual) Cancelled Other Cells # Cancelled Nucleated RBCs # (Man) Cancelled Hypersegmented Neuts Cancelled Hyposegmented Neuts Cancelled Hypogranular Neuts Cancelled Large Granular Lymphs Cancelled # Lrg Granular Lymphs Cancelled Hairy Cells Cancelled Smudge Cells Cancelled Toxic Granulation Cancelled Toxic Vacuolation Cancelled Dohle Bodies Cancelled Arnulfo Rods Cancelled Platelet Estimate Cancelled Hypogranular Platelets Cancelled Giant Platelets Cancelled Platelet Satelliting Cancelled RBC Morphology Cancelled Polychromasia Cancelled Hypochromasia Cancelled Poikilocytosis Cancelled Basophilic Stippling Cancelled Anisocytosis Cancelled Microcytosis Cancelled Macrocytosis Cancelled Spherocytes Cancelled Pappenheimer Bodies Cancelled Sickle Cells Cancelled Target Cells Cancelled Tear Drop Cells Cancelled Ovalocytes Cancelled Stomatocytes Cancelled Thompson-Beckley Bodies Cancelled Echinocytes Cancelled Acanthocytes (Spur) Cancelled Rouleaux Cancelled RBC Agglutinates Cancelled Schistocytes Cancelled Sezary Cell Cancelled PT INR APTT PTT Ratio VBG pH (7.36-7.41) VBG pCO2 (38-50) mmHg VBG pO2 mmHg VBG HCO3 mmol/L VBG O2 Saturation % VBG Base Excess mEq/L Sodium Potassium Chloride Carbon Dioxide Anion Gap BUN Creatinine Est Cr Clr Drug Dosing Est GFR ( Amer) Est GFR (Non-Af Amer) BUN/Creatinine Ratio Glucose POC Glucose > 600 H* (70-99) mg/dl Osmolality Lactate (0.4-2.0) mmol/L Calcium Phosphorus Magnesium Total Bilirubin Direct Bilirubin AST ALT Alkaline Phosphatase Ammonia Total Creatine Kinase (30-223) U/L Troponin I High Sens Total Protein Albumin Lipase Procalcitonin Urine Color Yellow Urine Appearance Cloudy A (Clear) Urine pH 5.0 (4.5-7.5) Ur Specific [place] 1.030 (1.000-1.030) Urine Protein Negative (Negative) Urine Glucose (UA) 3+ H (Negative) Urine Ketones 1+ H (Negative) Urine Blood 2+ H (Negative) Urine Nitrite Negative (Negative) Urine Bilirubin Negative (Negative) Urine Urobilinogen Negative (Negative) Ur Leukocyte Esterase 1+ H (Negative) Urine WBC (Auto) >30 H (0-5) /hpf Urine RBC (Auto) 0-4 (0-4) /hpf U Hyaline Cast (Auto) 1-5 (0-5) /lpf U Epithel Cells (Auto) 5-10 H (0-5) /lpf Urine Bacteria (Auto) 2+ H (Negative) Urine Yeast Budding w/ Hyphae A (None Prsent) SARS-CoV-2, RNA, NAAT (NEGATIVE) Blood Parasites ID Cancelled Blood Type Antibody Screen 07/08/22 07/08/22 07/08/22 Range/Units 11:05 11:05 11:05 WBC RBC Hgb Hct MCV MCH MCHC RDW Std Deviation RDW Coeff of Ahsan Plt Count MPV Immature Gran % (Auto) Neut % (Auto) Lymph % (Auto) [place] % (Auto) Eos % (Auto) Baso % (Auto) Neut # (Auto) Lymph # (Auto) [place] # (Auto) Eos # (Auto) Baso # (Auto) Immature Gran # (Auto) Absolute Nucleated RBC Nucleated RBC % (auto) Neutrophils % (Manual) Band Neutrophils % Lymphocytes % (Manual) Prolymphocyte % Reactive Lymphs % (Man) Monocytes % (Manual) Eosinophils % (Manual) Basophils % (Manual) Metamyelocytes % (Man) Myelocytes % (Man) Promyelocytes % (Man) Blast Cells % (Manual) Plasma Cell % (Manual) Other Cells % Nucleated RBC % Neutrophils # (Manual) Band Neutrophils # Total Absolute Neuts Lymphocytes # (Manual) Prolymphocyte # Reactive Lymphs # Total Abs Lymphocytes Monocytes # (Manual) Eosinophils # (Manual) Basophils # (Manual) Metamyelocytes # (Man) Myelocytes # (Manual) Promyelocytes # (Man) Blast Cells # (Man) Plasma Cell # (Manual) Other Cells # Nucleated RBCs # (Man) Hypersegmented Neuts Hyposegmented Neuts Hypogranular Neuts Large Granular Lymphs # Lrg Granular Lymphs Hairy Cells Smudge Cells Toxic Granulation Toxic Vacuolation Dohle Bodies Arnulfo Rods Platelet Estimate Hypogranular Platelets Giant Platelets Platelet Satelliting RBC Morphology Polychromasia Hypochromasia Poikilocytosis Basophilic Stippling Anisocytosis Microcytosis Macrocytosis Spherocytes Pappenheimer Bodies Sickle Cells Target Cells Tear Drop Cells Ovalocytes Stomatocytes Thompson-Beckley Bodies Echinocytes Acanthocytes (Spur) Rouleaux RBC Agglutinates Schistocytes Sezary Cell PT INR APTT PTT Ratio VBG pH (7.36-7.41) VBG pCO2 (38-50) mmHg VBG pO2 mmHg VBG HCO3 mmol/L VBG O2 Saturation % VBG Base Excess mEq/L Sodium Cancelled Potassium Cancelled Chloride Cancelled Carbon Dioxide Cancelled Anion Gap Cancelled BUN Cancelled Creatinine Cancelled Est Cr Clr Drug Dosing Cancelled Est GFR ( Amer) Cancelled Est GFR (Non-Af Amer) Cancelled BUN/Creatinine Ratio Cancelled Glucose Cancelled POC Glucose (70-99) mg/dl Osmolality Lactate 3.7 H* (0.4-2.0) mmol/L Calcium Cancelled Phosphorus Cancelled Magnesium Cancelled Total Bilirubin Cancelled Direct Bilirubin Cancelled AST Cancelled ALT Cancelled Alkaline Phosphatase Cancelled Ammonia Total Creatine Kinase (30-223) U/L Troponin I High Sens Cancelled Total Protein Cancelled Albumin Cancelled Lipase Cancelled Procalcitonin Cancelled Urine Color Urine Appearance (Clear) Urine pH (4.5-7.5) Ur Specific [place] (1.000-1.030) Urine Protein (Negative) Urine Glucose (UA) (Negative) Urine Ketones (Negative) Urine Blood (Negative) Urine Nitrite (Negative) Urine Bilirubin (Negative) Urine Urobilinogen (Negative) Ur Leukocyte Esterase (Negative) Urine WBC (Auto) (0-5) /hpf Urine RBC (Auto) (0-4) /hpf U Hyaline Cast (Auto) (0-5) /lpf U Epithel Cells (Auto) (0-5) /lpf Urine Bacteria (Auto) (Negative) Urine Yeast (None Prsent) SARS-CoV-2, RNA, NAAT (NEGATIVE) Blood Parasites ID Blood Type Antibody Screen 07/08/22 07/08/22 07/08/22 Range/Units 11:05 11:05 11:05 WBC RBC Hgb Hct MCV MCH MCHC RDW Std Deviation RDW Coeff of Ahsan Plt Count MPV Immature Gran % (Auto) Neut % (Auto) Lymph % (Auto) [place] % (Auto) Eos % (Auto) Baso % (Auto) Neut # (Auto) Lymph # (Auto) [place] # (Auto) Eos # (Auto) Baso # (Auto) Immature Gran # (Auto) Absolute Nucleated RBC Nucleated RBC % (auto) Neutrophils % (Manual) Band Neutrophils % Lymphocytes % (Manual) Prolymphocyte % Reactive Lymphs % (Man) Monocytes % (Manual) Eosinophils % (Manual) Basophils % (Manual) Metamyelocytes % (Man) Myelocytes % (Man) Promyelocytes % (Man) Blast Cells % (Manual) Plasma Cell % (Manual) Other Cells % Nucleated RBC % Neutrophils # (Manual) Band Neutrophils # Total Absolute Neuts Lymphocytes # (Manual) Prolymphocyte # Reactive Lymphs # Total Abs Lymphocytes Monocytes # (Manual) Eosinophils # (Manual) Basophils # (Manual) Metamyelocytes # (Man) Myelocytes # (Manual) Promyelocytes # (Man) Blast Cells # (Man) Plasma Cell # (Manual) Other Cells # Nucleated RBCs # (Man) Hypersegmented Neuts Hyposegmented Neuts Hypogranular Neuts Large Granular Lymphs # Lrg Granular Lymphs Hairy Cells Smudge Cells Toxic Granulation Toxic Vacuolation Dohle Bodies Arnulfo Rods Platelet Estimate Hypogranular Platelets Giant Platelets Platelet Satelliting RBC Morphology Polychromasia Hypochromasia Poikilocytosis Basophilic Stippling Anisocytosis Microcytosis Macrocytosis Spherocytes Pappenheimer Bodies Sickle Cells Target Cells Tear Drop Cells Ovalocytes Stomatocytes Thompson-Beckley Bodies Echinocytes Acanthocytes (Spur) Rouleaux RBC Agglutinates Schistocytes Sezary Cell PT Cancelled INR Cancelled APTT Cancelled PTT Ratio Cancelled VBG pH (7.36-7.41) VBG pCO2 (38-50) mmHg VBG pO2 mmHg VBG HCO3 mmol/L VBG O2 Saturation % VBG Base Excess mEq/L Sodium Potassium Chloride Carbon Dioxide Anion Gap BUN Creatinine Est Cr Clr Drug Dosing Est GFR ( Amer) Est GFR (Non-Af Amer) BUN/Creatinine Ratio Glucose POC Glucose (70-99) mg/dl Osmolality Lactate (0.4-2.0) mmol/L Calcium Phosphorus Magnesium Total Bilirubin Direct Bilirubin AST ALT Alkaline Phosphatase Ammonia Cancelled Total Creatine Kinase (30-223) U/L Troponin I High Sens Total Protein Albumin Lipase Procalcitonin Urine Color Urine Appearance (Clear) Urine pH (4.5-7.5) Ur Specific [place] (1.000-1.030) Urine Protein (Negative) Urine Glucose (UA) (Negative) Urine Ketones (Negative) Urine Blood (Negative) Urine Nitrite (Negative) Urine Bilirubin (Negative) Urine Urobilinogen (Negative) Ur Leukocyte Esterase (Negative) Urine WBC (Auto) (0-5) /hpf Urine RBC (Auto) (0-4) /hpf U Hyaline Cast (Auto) (0-5) /lpf U Epithel Cells (Auto) (0-5) /lpf Urine Bacteria (Auto) (Negative) Urine Yeast (None Prsent) SARS-CoV-2, RNA, NAAT (NEGATIVE) Blood Parasites ID Blood Type O Negative Antibody Screen NEGATIVE 07/08/22 07/08/22 07/08/22 Range/Units 11:05 11:05 12:01 WBC RBC Hgb Hct MCV MCH MCHC RDW Std Deviation RDW Coeff of Ahsan Plt Count MPV Immature Gran % (Auto) Neut % (Auto) Lymph % (Auto) [place] % (Auto) Eos % (Auto) Baso % (Auto) Neut # (Auto) Lymph # (Auto) [place] # (Auto) Eos # (Auto) Baso # (Auto) Immature Gran # (Auto) Absolute Nucleated RBC Nucleated RBC % (auto) Neutrophils % (Manual) Band Neutrophils % Lymphocytes % (Manual) Prolymphocyte % Reactive Lymphs % (Man) Monocytes % (Manual) Eosinophils % (Manual) Basophils % (Manual) Metamyelocytes % (Man) Myelocytes % (Man) Promyelocytes % (Man) Blast Cells % (Manual) Plasma Cell % (Manual) Other Cells % Nucleated RBC % Neutrophils # (Manual) Band Neutrophils # Total Absolute Neuts Lymphocytes # (Manual) Prolymphocyte # Reactive Lymphs # Total Abs Lymphocytes Monocytes # (Manual) Eosinophils # (Manual) Basophils # (Manual) Metamyelocytes # (Man) Myelocytes # (Manual) Promyelocytes # (Man) Blast Cells # (Man) Plasma Cell # (Manual) Other Cells # Nucleated RBCs # (Man) Hypersegmented Neuts Hyposegmented Neuts Hypogranular Neuts Large Granular Lymphs # Lrg Granular Lymphs Hairy Cells Smudge Cells Toxic Granulation Toxic Vacuolation Dohle Bodies Arnulfo Rods Platelet Estimate Hypogranular Platelets Giant Platelets Platelet Satelliting RBC Morphology Polychromasia Hypochromasia Poikilocytosis Basophilic Stippling Anisocytosis Microcytosis Macrocytosis Spherocytes Pappenheimer Bodies Sickle Cells Target Cells Tear Drop Cells Ovalocytes Stomatocytes Thompson-Beckley Bodies Echinocytes Acanthocytes (Spur) Rouleaux RBC Agglutinates Schistocytes Sezary Cell PT INR APTT PTT Ratio VBG pH 7.21 L (7.36-7.41) VBG pCO2 38 (38-50) mmHg VBG pO2 28 mmHg VBG HCO3 15 mmol/L VBG O2 Saturation < 60.0 % VBG Base Excess -11.9 mEq/L Sodium Potassium Chloride Carbon Dioxide Anion Gap BUN Creatinine Est Cr Clr Drug Dosing Est GFR ( Amer) Est GFR (Non-Af Amer) BUN/Creatinine Ratio Glucose POC Glucose (70-99) mg/dl Osmolality Cancelled 389 H* Lactate (0.4-2.0) mmol/L Calcium Phosphorus Magnesium Total Bilirubin Direct Bilirubin AST ALT Alkaline Phosphatase Ammonia Total Creatine Kinase (30-223) U/L Troponin I High Sens Total Protein Albumin Lipase Procalcitonin Urine Color Urine Appearance (Clear) Urine pH (4.5-7.5) Ur Specific [place] (1.000-1.030) Urine Protein (Negative) Urine Glucose (UA) (Negative) Urine Ketones (Negative) Urine Blood (Negative) Urine Nitrite (Negative) Urine Bilirubin (Negative) Urine Urobilinogen (Negative) Ur Leukocyte Esterase (Negative) Urine WBC (Auto) (0-5) /hpf Urine RBC (Auto) (0-4) /hpf U Hyaline Cast (Auto) (0-5) /lpf U Epithel Cells (Auto) (0-5) /lpf Urine Bacteria (Auto) (Negative) Urine Yeast (None Prsent) SARS-CoV-2, RNA, NAAT (NEGATIVE) Blood Parasites ID Blood Type Antibody Screen 07/08/22 07/08/22 07/08/22 Range/Units 12:01 12:01 12:01 WBC RBC Hgb Hct MCV MCH MCHC RDW Std Deviation RDW Coeff of Ahsan Plt Count MPV Immature Gran % (Auto) Neut % (Auto) Lymph % (Auto) [place] % (Auto) Eos % (Auto) Baso % (Auto) Neut # (Auto) Lymph # (Auto) [place] # (Auto) Eos # (Auto) Baso # (Auto) Immature Gran # (Auto) Absolute Nucleated RBC Nucleated RBC % (auto) Neutrophils % (Manual) Band Neutrophils % Lymphocytes % (Manual) Prolymphocyte % Reactive Lymphs % (Man) Monocytes % (Manual) Eosinophils % (Manual) Basophils % (Manual) Metamyelocytes % (Man) Myelocytes % (Man) Promyelocytes % (Man) Blast Cells % (Manual) Plasma Cell % (Manual) Other Cells % Nucleated RBC % Neutrophils # (Manual) Band Neutrophils # Total Absolute Neuts Lymphocytes # (Manual) Prolymphocyte # Reactive Lymphs # Total Abs Lymphocytes Monocytes # (Manual) Eosinophils # (Manual) Basophils # (Manual) Metamyelocytes # (Man) Myelocytes # (Manual) Promyelocytes # (Man) Blast Cells # (Man) Plasma Cell # (Manual) Other Cells # Nucleated RBCs # (Man) Hypersegmented Neuts Hyposegmented Neuts Hypogranular Neuts Large Granular Lymphs # Lrg Granular Lymphs Hairy Cells Smudge Cells Toxic Granulation Toxic Vacuolation Dohle Bodies Arnulfo Rods Platelet Estimate Hypogranular Platelets Giant Platelets Platelet Satelliting RBC Morphology Polychromasia Hypochromasia Poikilocytosis Basophilic Stippling Anisocytosis Microcytosis Macrocytosis Spherocytes Pappenheimer Bodies Sickle Cells Target Cells Tear Drop Cells Ovalocytes Stomatocytes Thompson-Beckley Bodies Echinocytes Acanthocytes (Spur) Rouleaux RBC Agglutinates Schistocytes Sezary Cell PT INR APTT PTT Ratio VBG pH (7.36-7.41) VBG pCO2 (38-50) mmHg VBG pO2 mmHg VBG HCO3 mmol/L VBG O2 Saturation % VBG Base Excess mEq/L Sodium 149 H Potassium 4.9 Chloride 111 H Carbon Dioxide 16 L Anion Gap 22 H BUN 79 H Creatinine 1.97 H Est Cr Clr Drug Dosing 44.3 Est GFR ( Amer) 41.9 Est GFR (Non-Af Amer) 36.1 BUN/Creatinine Ratio 40.1 H Glucose 768 H* POC Glucose (70-99) mg/dl Osmolality Lactate (0.4-2.0) mmol/L Calcium 10.3 H Phosphorus 7.0 H Magnesium 2.7 H Total Bilirubin 0.7 Direct Bilirubin 0.1 AST 9 L ALT 8 Alkaline Phosphatase 123 H Ammonia 25.0 Total Creatine Kinase 62 (30-223) U/L Troponin I High Sens 98.1 H* Total Protein 7.5 Albumin 2.7 L Lipase 14 Procalcitonin 1.25 H Urine Color Urine Appearance (Clear) Urine pH (4.5-7.5) Ur Specific [place] (1.000-1.030) Urine Protein (Negative) Urine Glucose (UA) (Negative) Urine Ketones (Negative) Urine Blood (Negative) Urine Nitrite (Negative) Urine Bilirubin (Negative) Urine Urobilinogen (Negative) Ur Leukocyte Esterase (Negative) Urine WBC (Auto) (0-5) /hpf Urine RBC (Auto) (0-4) /hpf U Hyaline Cast (Auto) (0-5) /lpf U Epithel Cells (Auto) (0-5) /lpf Urine Bacteria (Auto) (Negative) Urine Yeast (None Prsent) SARS-CoV-2, RNA, NAAT (NEGATIVE) Blood Parasites ID Blood Type Antibody Screen 07/08/22 07/08/22 07/08/22 Range/Units 12:01 12:01 13:39 WBC 29.65 H RBC 4.42 L Hgb 12.0 L Hct 39.8 L MCV 90.0 MCH 27.1 MCHC 30.2 L RDW Std Deviation 52.9 H RDW Coeff of Ahsan 15.9 H Plt Count 375 MPV 10.8 Immature Gran % (Auto) 3.9 Neut % (Auto) 86.7 Lymph % (Auto) 4.1 [place] % (Auto) 4.7 Eos % (Auto) 0.0 Baso % (Auto) 0.6 Neut # (Auto) 25.67 H Lymph # (Auto) 1.22 [place] # (Auto) 1.39 H Eos # (Auto) 0.01 Baso # (Auto) 0.19 Immature Gran # (Auto) 1.17 H Absolute Nucleated RBC Nucleated RBC % (auto) Neutrophils % (Manual) Band Neutrophils % Lymphocytes % (Manual) Prolymphocyte % Reactive Lymphs % (Man) Monocytes % (Manual) Eosinophils % (Manual) Basophils % (Manual) Metamyelocytes % (Man) Myelocytes % (Man) Promyelocytes % (Man) Blast Cells % (Manual) Plasma Cell % (Manual) Other Cells % Nucleated RBC % Neutrophils # (Manual) Band Neutrophils # Total Absolute Neuts Lymphocytes # (Manual) Prolymphocyte # Reactive Lymphs # Total Abs Lymphocytes Monocytes # (Manual) Eosinophils # (Manual) Basophils # (Manual) Metamyelocytes # (Man) Myelocytes # (Manual) Promyelocytes # (Man) Blast Cells # (Man) Plasma Cell # (Manual) Other Cells # Nucleated RBCs # (Man) Hypersegmented Neuts Hyposegmented Neuts Hypogranular Neuts Large Granular Lymphs # Lrg Granular Lymphs Hairy Cells Smudge Cells Toxic Granulation Toxic Vacuolation Dohle Bodies Arnulfo Rods Platelet Estimate Hypogranular Platelets Giant Platelets Platelet Satelliting RBC Morphology Polychromasia Hypochromasia Poikilocytosis Basophilic Stippling Anisocytosis Microcytosis Macrocytosis Spherocytes Pappenheimer Bodies Sickle Cells Target Cells Tear Drop Cells Ovalocytes Stomatocytes Thompson-Beckley Bodies Echinocytes Acanthocytes (Spur) Rouleaux RBC Agglutinates Schistocytes Sezary Cell PT 11.9 INR 1.1 APTT 20.1 L PTT Ratio 0.7 VBG pH (7.36-7.41) VBG pCO2 (38-50) mmHg VBG pO2 mmHg VBG HCO3 mmol/L VBG O2 Saturation % VBG Base Excess mEq/L Sodium Potassium Chloride Carbon Dioxide Anion Gap BUN Creatinine Est Cr Clr Drug Dosing Est GFR ( Amer) Est GFR (Non-Af Amer) BUN/Creatinine Ratio Glucose POC Glucose (70-99) mg/dl Osmolality Lactate 1.9 (0.4-2.0) mmol/L Calcium Phosphorus Magnesium Total Bilirubin Direct Bilirubin AST ALT Alkaline Phosphatase Ammonia Total Creatine Kinase (30-223) U/L Troponin I High Sens Total Protein Albumin Lipase Procalcitonin Urine Color Urine Appearance (Clear) Urine pH (4.5-7.5) Ur Specific [place] (1.000-1.030) Urine Protein (Negative) Urine Glucose (UA) (Negative) Urine Ketones (Negative) Urine Blood (Negative) Urine Nitrite (Negative) Urine Bilirubin (Negative) Urine Urobilinogen (Negative) Ur Leukocyte Esterase (Negative) Urine WBC (Auto) (0-5) /hpf Urine RBC (Auto) (0-4) /hpf U Hyaline Cast (Auto) (0-5) /lpf U Epithel Cells (Auto) (0-5) /lpf Urine Bacteria (Auto) (Negative) Urine Yeast (None Prsent) SARS-CoV-2, RNA, NAAT (NEGATIVE) Blood Parasites ID Blood Type Antibody Screen 07/08/22 07/08/22 07/08/22 Range/Units 14:32 14:32 14:46 WBC RBC Hgb Hct MCV MCH MCHC RDW Std Deviation RDW Coeff of Ahsan Plt Count MPV Immature Gran % (Auto) Neut % (Auto) Lymph % (Auto) [place] % (Auto) Eos % (Auto) Baso % (Auto) Neut # (Auto) Lymph # (Auto) [place] # (Auto) Eos # (Auto) Baso # (Auto) Immature Gran # (Auto) Absolute Nucleated RBC Nucleated RBC % (auto) Neutrophils % (Manual) Band Neutrophils % Lymphocytes % (Manual) Prolymphocyte % Reactive Lymphs % (Man) Monocytes % (Manual) Eosinophils % (Manual) Basophils % (Manual) Metamyelocytes % (Man) Myelocytes % (Man) Promyelocytes % (Man) Blast Cells % (Manual) Plasma Cell % (Manual) Other Cells % Nucleated RBC % Neutrophils # (Manual) Band Neutrophils # Total Absolute Neuts Lymphocytes # (Manual) Prolymphocyte # Reactive Lymphs # Total Abs Lymphocytes Monocytes # (Manual) Eosinophils # (Manual) Basophils # (Manual) Metamyelocytes # (Man) Myelocytes # (Manual) Promyelocytes # (Man) Blast Cells # (Man) Plasma Cell # (Manual) Other Cells # Nucleated RBCs # (Man) Hypersegmented Neuts Hyposegmented Neuts Hypogranular Neuts Large Granular Lymphs # Lrg Granular Lymphs Hairy Cells Smudge Cells Toxic Granulation Toxic Vacuolation Dohle Bodies Arnulfo Rods Platelet Estimate Hypogranular Platelets Giant Platelets Platelet Satelliting RBC Morphology Polychromasia Hypochromasia Poikilocytosis Basophilic Stippling Anisocytosis Microcytosis Macrocytosis Spherocytes Pappenheimer Bodies Sickle Cells Target Cells Tear Drop Cells Ovalocytes Stomatocytes Thompson-Beckley Bodies Echinocytes Acanthocytes (Spur) Rouleaux RBC Agglutinates Schistocytes Sezary Cell PT INR APTT PTT Ratio VBG pH 7.18 L (7.36-7.41) VBG pCO2 (38-50) mmHg VBG pO2 mmHg VBG HCO3 mmol/L VBG O2 Saturation % VBG Base Excess mEq/L Sodium 151 H Potassium 3.7 D Chloride 115 H Carbon Dioxide 13 L Anion Gap 23 H BUN 74 H Creatinine 1.81 H Est Cr Clr Drug Dosing 48.2 Est GFR ( Amer) 46.4 Est GFR (Non-Af Amer) 40.0 BUN/Creatinine Ratio 40.9 H Glucose 619 H* POC Glucose (70-99) mg/dl Osmolality Lactate (0.4-2.0) mmol/L Calcium 9.4 Phosphorus 5.7 H Magnesium 2.7 H Total Bilirubin Direct Bilirubin AST ALT Alkaline Phosphatase Ammonia Total Creatine Kinase (30-223) U/L Troponin I High Sens Total Protein Albumin Lipase Procalcitonin Urine Color Urine Appearance (Clear) Urine pH (4.5-7.5) Ur Specific [place] (1.000-1.030) Urine Protein (Negative) Urine Glucose (UA) (Negative) Urine Ketones (Negative) Urine Blood (Negative) Urine Nitrite (Negative) Urine Bilirubin (Negative) Urine Urobilinogen (Negative) Ur Leukocyte Esterase (Negative) Urine WBC (Auto) (0-5) /hpf Urine RBC (Auto) (0-4) /hpf U Hyaline Cast (Auto) (0-5) /lpf U Epithel Cells (Auto) (0-5) /lpf Urine Bacteria (Auto) (Negative) Urine Yeast (None Prsent) SARS-CoV-2, RNA, NAAT NEGATIVE (NEGATIVE) Blood Parasites ID Blood Type Antibody Screen 07/08/22 07/08/22 Range/Units 14:53 15:54 WBC RBC Hgb Hct MCV MCH MCHC RDW Std Deviation RDW Coeff of Ahsan Plt Count MPV Immature Gran % (Auto) Neut % (Auto) Lymph % (Auto) [place] % (Auto) Eos % (Auto) Baso % (Auto) Neut # (Auto) Lymph # (Auto) [place] # (Auto) Eos # (Auto) Baso # (Auto) Immature Gran # (Auto) Absolute Nucleated RBC Nucleated RBC % (auto) Neutrophils % (Manual) Band Neutrophils % Lymphocytes % (Manual) Prolymphocyte % Reactive Lymphs % (Man) Monocytes % (Manual) Eosinophils % (Manual) Basophils % (Manual) Metamyelocytes % (Man) Myelocytes % (Man) Promyelocytes % (Man) Blast Cells % (Manual) Plasma Cell % (Manual) Other Cells % Nucleated RBC % Neutrophils # (Manual) Band Neutrophils # Total Absolute Neuts Lymphocytes # (Manual) Prolymphocyte # Reactive Lymphs # Total Abs Lymphocytes Monocytes # (Manual) Eosinophils # (Manual) Basophils # (Manual) Metamyelocytes # (Man) Myelocytes # (Manual) Promyelocytes # (Man) Blast Cells # (Man) Plasma Cell # (Manual) Other Cells # Nucleated RBCs # (Man) Hypersegmented Neuts Hyposegmented Neuts Hypogranular Neuts Large Granular Lymphs # Lrg Granular Lymphs Hairy Cells Smudge Cells Toxic Granulation Toxic Vacuolation Dohle Bodies Arnulfo Rods Platelet Estimate Hypogranular Platelets Giant Platelets Platelet Satelliting RBC Morphology Polychromasia Hypochromasia Poikilocytosis Basophilic Stippling Anisocytosis Microcytosis Macrocytosis Spherocytes Pappenheimer Bodies Sickle Cells Target Cells Tear Drop Cells Ovalocytes Stomatocytes Thompson-Beckley Bodies Echinocytes Acanthocytes (Spur) Rouleaux RBC Agglutinates Schistocytes Sezary Cell PT INR APTT PTT Ratio VBG pH (7.36-7.41) VBG pCO2 (38-50) mmHg VBG pO2 mmHg VBG HCO3 mmol/L VBG O2 Saturation % VBG Base Excess mEq/L Sodium Potassium Chloride Carbon Dioxide Anion Gap BUN Creatinine Est Cr Clr Drug Dosing Est GFR ( Amer) Est GFR (Non-Af Amer) BUN/Creatinine Ratio Glucose POC Glucose 514 H* 502 H* (70-99) mg/dl Osmolality Lactate (0.4-2.0) mmol/L Calcium Phosphorus Magnesium Total Bilirubin Direct Bilirubin AST ALT Alkaline Phosphatase Ammonia Total Creatine Kinase (30-223) U/L Troponin I High Sens Total Protein Albumin Lipase Procalcitonin Urine Color Urine Appearance (Clear) Urine pH (4.5-7.5) Ur Specific [place] (1.000-1.030) Urine Protein (Negative) Urine Glucose (UA) (Negative) Urine Ketones (Negative) Urine Blood (Negative) Urine Nitrite (Negative) Urine Bilirubin (Negative) Urine Urobilinogen (Negative) Ur Leukocyte Esterase (Negative) Urine WBC (Auto) (0-5) /hpf Urine RBC (Auto) (0-4) /hpf U Hyaline Cast (Auto) (0-5) /lpf U Epithel Cells (Auto) (0-5) /lpf Urine Bacteria (Auto) (Negative) Urine Yeast (None Prsent) SARS-CoV-2, RNA, NAAT (NEGATIVE) Blood Parasites ID Blood Type Antibody Screen Administered Medications Insulin Human Regular 250 (units/ Sodium Chloride) 250 mls @ 9.3 mls/hr IV .Q24H HOANG; Protocol Stop: 08/07/22 13:29 Last Titration: 07/08/22 16:06 Dose: 9.3 units/hr, 9.3 mls/hr Documented By: SHEN Co-signed By: JOSELIN Admin: 07/08/22 13:51 Dose: 9.3 units/hr, 9.3 mls/hr Documented By: GUSTAVO Co-signed By: ESTELA Potassium Chloride/Sodium Chloride (1/2 Nss + 20meq Kcl 1000ml) 20 meq in 1,000 mls @ 250 mls/hr IV .Q4H HOANG; Protocol Stop: 08/07/22 13:29 Last Admin: 07/08/22 13:50 Dose: 250 mls/hr Documented By: GUSTAVO Clindamycin Phosphate (Cleocin/D5w) 900 mg in 50 mls @ 100 mls/hr IV Q8H HOANG Stop: 07/15/22 14:59 Last Infusion: 07/08/22 16:00 Dose: 0 mls/hr Documented By: Admin: 07/08/22 15:15 Dose: 100 mls/hr Documented By: SHEN Insulin Aspart (Insulin Aspart Per Unit) 0 units SC ACHS HOANG Stop: 08/07/22 16:29 Last Admin: 07/08/22 16:06 Dose: Not Given Documented By: SHEN Discontinued Medications Calcium Gluconate (Calcium Gluconate 1000 Mg/60 Ml Nss) Confirm Administered Dose 2,000 mg IV .STK-MED ONE Stop: 07/08/22 11:20 Last Admin: 07/08/22 11:45 Dose: Not Given Documented By: GUSTAVO Cefepime HCl (Cefepime 2,000 Mg/20 Ml Vial) Confirm Administered Dose 2,000 mg .ROUTE .STK-MED ONE Stop: 07/08/22 11:52 Last Admin: 07/08/22 11:53 Dose: Not Given Documented By: VANESAT Sodium Chloride (Nss 1000ml) 1,000 mls @ 999 mls/hr IV .Q1H1M HOANG Stop: 07/08/22 13:00 Last Infusion: 07/08/22 13:50 Dose: 0 mls/hr Documented By: Admin: 07/08/22 12:35 Dose: 999 mls/hr Documented By: Infusion: 07/08/22 12:01 Dose: 999 mls/hr Documented By: Admin: 07/08/22 11:00 Dose: 999 mls/hr Documented By: ARS Sodium Chloride (Nss 1000ml) 1,000 mls @ 999 mls/hr IV .Q1H1M HOANG Stop: 07/08/22 12:00 Last Infusion: 07/08/22 11:44 Dose: 0 mls/hr Documented By: Admin: 07/08/22 11:00 Dose: 999 mls/hr Documented By: GUSTAVO Cefepime HCl (Maxipime) 2,000 mg in 20 mls @ 5 mls/min IV NOW STA; Protocol Stop: 07/08/22 11:00 Last Admin: 07/08/22 11:52 Dose: Not Given Documented By: ELOISE Piperacillin Sod/Tazobactam Sod (Zosyn) 4.5 gm in 120 mls @ 240 mls/hr IV NOW ONE Stop: 07/08/22 11:32 Last Infusion: 07/08/22 11:44 Dose: 0 mls/hr Documented By: Admin: 07/08/22 11:19 Dose: 240 mls/hr Documented By: GUSTAVO Calcium Gluconate () 1,000 mg in 60 mls @ 240 mls/hr IV Q15M [facility] Stop: 07/08/22 12:14 Last Infusion: 07/08/22 12:01 Dose: 0 mls/hr Documented By: Admin: 07/08/22 11:44 Dose: 240 mls/hr Documented By: Infusion: 07/08/22 11:44 Dose: 240 mls/hr Documented By: Admin: 07/08/22 11:30 Dose: 240 mls/hr Documented By: Infusion: 07/08/22 11:19 Dose: 240 mls/hr Documented By: Admin: 07/08/22 11:19 Dose: 240 mls/hr Documented By: GUSTAVO Vancomycin HCl 1,750 mg/ (Sodium Chloride) 535 mls @ 200 mls/hr IV NOW STA; Protocol Stop: 07/08/22 14:01 Last Infusion: 07/08/22 13:50 Dose: 0 mls/hr Documented By: Admin: 07/08/22 11:44 Dose: 200 mls/hr Documented By: GUSTAVO Clindamycin Phosphate (Cleocin/D5w) 900 mg in 50 mls @ 100 mls/hr IV NOW STA Stop: 07/08/22 13:25 Last Admin: 07/08/22 13:54 Dose: Not Given Documented By: GUSTAVO Lactated Ringer's (Lr) 500 mls @ 999 mls/hr IV .Q31M ONE Stop: 07/08/22 14:55 Last Infusion: 07/08/22 15:15 Dose: 0 mls/hr Documented By: Admin: 07/08/22 14:20 Dose: 999 mls/hr Documented By: GUSTAVO Insulin Human Regular (Novolin-R Bolus From Bag) 9.3 units IV ONE ONE Stop: 07/08/22 13:30 Last Admin: 07/08/22 13:52 Dose: 9.3 units Documented By: GUSTAVO Co-signed By: ESTELA Imaging Data Radiologist's Impression: Chest X-Ray 07/08/22 10:57 SINGLE VIEW CHEST CLINICAL HISTORY: Sepsis. FINDINGS: An AP, portable, upright chest radiograph is obtained. No prior studies are available for comparison at the time of dictation. The heart is top normal for projection noting atherosclerotic calcification of the thoracic aorta. Nonspecific interstitial thickening is likely chronic. There is bibasilar scarring/atelectasis. No airspace consolidation or large pleural effusion is identified. No pneumothorax is seen. The skeletal structures are osteopenic. The bony thorax is grossly intact. IMPRESSION: No acute cardiopulmonary abnormality. ACT 112: Negative or not required by law. Electronically signed by: Jaylan Freeman M.D. 07/08/2022 12:[address] 07/08/22 11:35 CT cervical spine wo con CLINICAL HISTORY: AMS, fall TECHNIQUE: Multidetector row helical CT of the cervical spine was performed without administration of intravenous contrast. Coronal and sagittal reformations were obtained. Automated dose lowering techniques and/or adjustment according to patient size were utilized for this exam. Comparison: None available at the time of this dictation. FINDINGS: No acute fractures or subluxations are identified. The vertebral body heights and disk spaces are well maintained. The alignment is normal. Soft tissues are unremarkable. Incidental note is made of periapical lucencies and dental caries. IMPRESSION: 1. No evidence of acute bony injury. 2. Dental caries and periapical lucencies which may represent periapical abscesses. ACT 112: Negative or not required by law. Electronically signed by: Charles Milian M.D. 07/08/2022 12:[address] 07/08/22 11:35 CT SCAN OF THE CHEST WITHOUT IV CONTRAST CLINICAL HISTORY: Sepsis. Change in mental status. COMPARISON STUDY: No priors. TECHNIQUE: CT scan of the thorax was performed from the thoracic inlet to the upper abdomen. Images are reviewed in the axial, sagittal, and coronal planes. IV contrast was not administered for this examination as per the referring clinician. A dose lowering technique was utilized adhering to the principles of ALARA. The examination is compromised by motion artifact. There is also streak artifact from the arms which could not be elevated above the chest. FINDINGS: Thyroid: Imaged portions of the thyroid gland are normal in size and attenuation. Thoracic aorta: There is atherosclerotic calcification of the thoracic aorta, which is normal in caliber and demonstrates standard 3-vessel arch anatomy. Heart: The heart is normal in size and without pericardial effusion. There are coronary artery calcifications. Lungs and pleural spaces: Evaluation of the lung parenchyma is compromised by motion artifact. No airspace consolidation or pleural effusion is identified. Secretions are noted in the trachea. Mediastinum: There is no mediastinal lymphadenopathy. Emani: Not well assessed without IV contrast. Axillae: There is no axillary lymphadenopathy. Upper abdomen: There are calcified gallstones. A small hiatal hernia is noted. Skeletal structures: The skeletal structures are osteopenic. No lytic or blastic bony lesions are seen. IMPRESSION: 1. Streak and motion compromised examination. 2. There is no airspace consolidation or pleural effusion. 3. Cholelithiasis. 4. Additional findings as above. ACT 112: Negative or not required by law. Electronically signed by: Jaylan Freeman M.D. 07/08/2022 12:[address] 07/08/22 11:35 CT SCAN OF THE RIGHT FOOT WITHOUT IV CONTRAST CLINICAL HISTORY: Sepsis. COMPARISON STUDY: CT scan of the right foot dated 02/17/2022. TECHNIQUE: CT scan of the right foot is performed from the ankle to the base of the foot. Images are reviewed in the axial, sagittal, and coronal planes. IV contrast was not administered for this examination. A dose lowering technique was utilized adhering to the principles of ALARA. Note that interpretation is suboptimal without current plain film correlate. FINDINGS: The skeletal structures are osteopenic. 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 Erosive/destructive change is seen involving the medial cuneiform on axial image #141 and the base of the first metatarsal on image #139 consistent with osteomyelitis. No additional foci of bony erosion are clearly identified. There is extensive superficial and deep soft tissue gas throughout the right foot and ankle. Intraosseous gas is seen throughout the tarsal and metatarsal bones. There is diffuse superficial and deep soft tissue edema throughout the right lower extremity. No organized fluid collection is identified to suggest abscess on this unenhanced examination. There is generalized atrophy of the regional musculature. There is atherosclerotic calcification of regional arteries. The Achilles tendon is intact as imaged. IMPRESSION: 1. Extensive superficial and deep soft tissue gas is seen throughout the right foot and ankle with extensive foci of intraosseous gas. This is consistent with necrotizing infection/fasciitis. Emergent surgical consultation is advised. 2. Superficial and deep soft tissue edema there is seen throughout the visualized right lower extremity. There is no organized fluid collection clearly identify to indication abscess. 3. Erosive/destructive change within the medial cuneiform and base of the first metatarsal is typical for osteomyelitis. 4. Postsurgical change as above. ACT 112: Negative or not required by law. Electronically signed by: Jaylan Freeman M.D. 07/08/2022 12:[address] 07/08/22 11:[address] DOSE: HISTORY: Sepsis, altered mental status TECHNIQUE: Multiaxial CT images of the head were performed without the use of intravenous contrast. Automated exposure control was utilized for this study. A dose lowering technique was utilized adhering to the principles of ALARA. Comparison: None. Findings: The mastoid air cells are clear. There is near complete opacification of the sphenoid sinus. Focal bony defect at the posterior sphenoid sinus/clivus. This could be due to old postoperative change. No calvarial fractures identified. The orbits are unremarkable. Punctate calcification within the felipe. There is no mass, hematoma, midline shift. Atrophy and microvascular ischemic changes are again noted. 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 No definite acute infarct identified. 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 No definite acute infarct identified. ACT 112: Negative or not required by law. Electronically signed by: Mau Hewitt M.D. 07/08/2022 12:39 PM Abdomen/Pelvis CT 07/08/22 11:37 CT abd pelvis wo con CLINICAL HISTORY: Sepsis, AMS TECHNIQUE: Helical axial images of the abdomen and pelvis were obtained. Automated dose lowering techniques and/or adjustment according to patient size were utilized for this exam. This exam was performed without intravenous contrast. CT DOSE: 4137.12 mGy.cm COMPARISON: Comparison is made to CT abdomen pelvis 02/18/2022 FINDINGS: Lower chest: No acute abnormality. Liver: Unremarkable. No focal lesions are seen. Gallbladder and biliary tree: Calcified stones are seen in the contracted gallbladder. No intra- or extrahepatic biliary ductal dilation. Pancreas: Unremarkable, no focal lesions. Spleen: Unremarkable. Adrenals: Thickening of the adrenal glands noted. Kidneys and ureters: Unremarkable. Bladder: Limited evaluation due to underdistention. Reproductive organs: Unremarkable. Bowel: A prominent stool ball is noted in the rectum with mild thickening of the rectal wall. The appendix is normal. Lymph nodes Retroperitoneal: Unremarkable. Pelvic: Subcentimeter lymph nodes are noted. 13 mm right inguinal lymph node is seen. Mesenteric: Unremarkable. Peritoneum: Normal. Vessels: Atherosclerotic calcifications are seen. Narrowing of the SMA origin is seen. Abdominal wall: Unremarkable. Bones: Degenerative changes in the visualized spine. IMPRESSION: 1. There is rectal wall prominence with a large stool ball which may represent mild stercoral colitis. Otherwise no acute abnormality is seen. 2. Cholelithiasis without cholecystitis. ACT 112: Negative or not required by law. Electronically signed by: Charles Milian M.D. 07/08/2022 12:45 PM Discharge Plan Visit Data Chief Complaint: Illness Stated Complaint: CANT MOVE LEGS, ISNT EATING, TROUBLE STAYING AWAKE ED Provider: Torrey Rodriguez Discharge Problem: Necrotizing fasciitis, Osteomyelitis of right foot, Sepsis, Hyperosmolar hyperglycemic state (HHS), High anion gap metabolic acidosis, Metabolic encephalopathy, Acute renal failure, Urinary tract infection, Hypothermia Patient Disposition: Admitted As Inpatient Discharge Instructions Interventions: ED Discharge Assessment Last Done: 07/08/22 16:42 Forms Stand Alone Forms: [facility] [employer] [facility] Prescriptions Prescriptions: No Action amlodipine 5 mg tablet 5 mg PO DAILY pantoprazole 40 mg tablet,delayed release (DR/EC) 40 mg PO QAM olmesartan 40 mg tablet 40 mg PO QAM dutasteride 0.5 mg capsule 0.5 mg PO QAM rosuvastatin 10 mg tablet 10 mg PO QPM metoprolol tartrate 25 mg tablet 25 mg PO QAM Jardiance 10 mg tablet 10 mg PO QAM clopidogrel 75 mg tablet 75 mg PO QAM ammonium lactate 12 % lotion 1 applic TOPICAL UD PRN (Reason: dry skin on legs) vitamin B complex Tablet 1 tab PO DAILY folic acid 1 mg Tablet 0 mg PO DAILY Rx Instructions: Unknown strength, take 1/2 tab daily Referrals Referrals: Jerry Pavon DO [Primary Care Provider] - Sepsis Qualifiers: Sepsis type: sepsis due to unspecified organism Sepsis acute organ dysfunction status: with acute organ dysfunction Severe sepsis acute organ dysfunction type: acute renal failure Acute renal failure type: unspecified Severe sepsis shock status: unspecified Qualified Code(s): A41.9 - Sepsis, unspecified organism Hypothermia Qualifiers: Encounter type: initial encounter Qualified Code(s): T68.XXXA - Hypothermia, initial encounter
[2022-07-08] MEDS: SODIUM CHLOR 0.45% + 20MEQ KCL 20 MEQ/1,000 ML BAG IV SCH ×2 (13:50→21:15)
[2022-07-08] MEDS ORDERED: LACTATED RINGER'S 500 ML IV ONE (14:25)
--- NOTE | 2022-07-08 14:43 | History & Physical Report ---
Date of Service July 08, 2022 Assessment & Plan (1) Diabetic foot infection: (2) Gas gangrene: (3) Necrotizing fasciitis: (4) Surgical wound, non healing: (5) Peripheral arterial disease: (6) Stroke: (7) GERD (gastroesophageal reflux disease): (8) Diabetes mellitus: (9) Dyslipidemia: (10) Neuropathy: Plan This is a 61yo M with a PMH of diabetic wounds, osteomyelitis, history of CVA, hypertension, hyperlipidemia, DM2 on oral medications, BPH, past tobacco abuse and other medical problems listed below who presents with AMS in setting of foot wounds was found to have severe sepsis in setting of possible necrotizing fasciitis, HHS. Severe sepsis Diabetic foot infection, necrotizing fasciitis on CT Initially hypotensive with SBP in 70s, BP improved to 102/55 after 3.5L fluid in ED. Switched to 1/2 NSS for continued resuscitation effort Leukocytosis of 29.65, initial lactate elevated at 3.7 with repeat in normal range at 1.9, Procal of 1.[address] with * 1. Extensive superficial and deep soft tissue gas is seen throughout the right foot and ankle with extensive foci of intraosseous gas. This is consistent with necrotizing infection/fasciitis. Emergent surgical consultation is advised. 2. Superficial and deep soft tissue edema there is seen throughout the visualized right lower extremity. There is no organized fluid collection clearly identify to indication abscess. 3. Erosive/destructive change within the medial cuneiform and base of the first metatarsal is typical for osteomyelitis. Discussed case with Dr. Jackson, who has previously operated on patient in January 2022. Willing to manage from a surgical perspective. Will take to OR around 1600 today Sister in law called to come in and consent for procedure as patient A&Ox1 Started on broad-spectrum vancomycin and Zosyn based on discussion with pharmacy and review of previous cultures - added clindamycin for 48hrs for antitoxin effect Likely to need ID consult once cultures result NPO for now Acute metabolic encephalopathy In setting of diabetic foot infection, HHS. Head CT without acute intracranial abnormality. Expect improvement with fluids and antibiotics but if not, consider obtaining brain MRI once more stable HHS/DKA Metabolic acidosis Uncontrolled DM II History of uncontrolled diabetes, history of medication noncompliance. Initial blood sugar 768 -> 619 Started on insulin drip, appreciate ED pharmacy. Continue closely monitoring metabolic labs, VBG pH, adjusting fluids early childhood educator aide consulted, A1c in a.m. Concern for facial infection Swelling noted during exam near right mandible extending to preauricular lymph nodes Unable to elicit history or meaningful information from patient Cervical spine CT with dental caries and periapical lucencies which may represent periapical abscesses Will consult oromaxillofacial surgery, may need further imaging once stabilized Colitis Ct abd/pelvis with rectal wall prominence with a large stool ball which may represent mild stercoral colitis. Otherwise no acute abnormality is seen Will trial fleet enema, if not improvement consider GI consult History of PAD H/o right leg arteriogram lithotripsy the proximal popliteal artery and mechanical closure of the left femoral artery by Dr. Ocampo On statin, plavix HTN Currently hypotensive in setting of sepsis. NPO for now anticipating OR this afternoon History of CVA Residual RUE weakness. On plavix, statin DVT Ppx: SCDs for now Code status: FULL PCP: [facility] Dispo: Admitted to PCU Patient seen in collaboration with Dr. Dai. Please see addendum. A total of 90 minutes were spent with greater than 50% of that time face to face with the patient, personally reviewing all current laboratories, imaging studies, past medication reconciliation, outpatient chart review, and discussion with specialists to collaborate care for the patient with attending and utilization of translation services. Please see attending documentation for corrections and/or additions. History of Present Illness Chief Complaint: wounds, AMS Primary Care Provider: Jerry Pavon DO This is a 61yo M with a PMH of diabetic wounds, osteomyelitis, history of CVA, hypertension, hyperlipidemia, DM2 on oral medications, BPH, past tobacco abuse and other medical problems listed below who presents with AMS in setting of foot wounds. Patient lives with his brother and [id number]. Was reportedly noticed to be confused and less responsive yesterday. Was brought in covered in feces in an obtunded state with wound on left foot. History primarily obtained from documentation, patient family and admitting RN due to patient only being oriented to self at this time. Patient previously admitted for diabetic foot wounds 4 months ago and found to have osteomyelitis status post amputation of 4th and 5th toes by Dr. Jackson as well as additional debridement and wound vac placement as well as right leg arteriogram lithotripsy the proximal popliteal artery and mechanical closure of the left femoral artery by Dr. Ocampo. Was discharged to SNF and received 6 weeks total of IV abx. Patient was reportedly following with wound care in clinic until recently and attempted to switch wound care groups due to schedule availability as far as rides go. Per EMR link, [id number] Elvira was to connect with [facility] wound care center. Underwent consultation there at the end of May but reportedly was not agreeable to treatment plan that included debridement and a follow-up appointment was not made. Unable to obtain ROS from patient as he is only oriented to person at this time. Allergies Allergy/AdvReac Type Severity Reaction Status Date / Time aloe vera Allergy Unknown Unknown Verified 07/08/22 11:58 Sulfa (Sulfonamide AdvReac Mild Nausea Verified 07/08/22 11:58 Antibiotics) Home Medications Medication Instructions Recorded Confirmed Type ammonium lactate 12 % lotion 1 applic topical UD PRN dry skin 02/17/22 07/08/22 History on legs clopidogrel 75 mg tablet 75 mg PO QAM 02/17/22 07/08/22 History dutasteride 0.5 mg capsule 0.5 mg PO QAM 02/17/22 07/08/22 History empagliflozin 10 mg tablet 10 mg PO QAM 02/17/22 07/08/22 History (Jardiance) metoprolol tartrate 25 mg tablet 25 mg PO QAM 02/17/22 07/08/22 History olmesartan 40 mg tablet 40 mg PO QAM 02/17/22 07/08/22 History pantoprazole 40 mg tablet,delayed 40 mg PO QAM 02/17/22 07/08/22 History release rosuvastatin 10 mg tablet 10 mg PO QPM 02/17/22 07/08/22 History amlodipine 5 mg tablet 5 mg PO DAILY 06/23/22 07/08/22 History folic acid 1 mg tablet 0 mg PO DAILY 07/08/22 07/08/22 History vitamin B complex 1 tab PO DAILY 07/08/22 07/08/22 History Past Med/Surg History Medical History Amputation toe Right 4th Toe- 02/27/22 BPH (benign prostatic hyperplasia) Cellulitis of toe of right foot Diabetes mellitus Diabetic ulcer of right fifth toe Dyslipidemia Essential hypertension Former smoker GERD (gastroesophageal reflux disease) Hyponatremia Mixed hyperlipidemia Neuropathy Obesity Osteomyelitis of right foot Peripheral arterial disease S/P arteriogram of extremity Right leg, lithotripsy of proximal popliteal artery, mechanical closure of left femoral artery, 02/25/22 Stroke July 2020 Right upper extremity weakness Surgical complication involving skin Application of [place] Graft to Right Forefoot-03/28/22 Surgical History History of incision and drainage partial excision of fifth ray of right foot, delayed primary closure 02/18/22 S/P debridement Right foot debridement, wound vac application 02/21/22 Family History Other Diabetes Social History (Updated 06/23/22 @ 12:03 by Dedra Noonan RN) Smoking Status: Unknown if ever smoked Hx Alcohol Use: No Hx Substance Use: No Preferred Language: Maori Communication Ability: Effective Dental Office Coordinator Required: No Beliefs That Will Affect Care: None marital status: Single Current Living Situation: Family Current Living Situation Comment: Nephew How many Children do You have: 9 Feels Safe at Home: Yes Assistive Devices: Brace/Splint/Immobilizer, Walker and Wheelchair Review of Systems Review of Systems: Unobtainable due to reduced consciousness Physical Exam Physical Exam: Please see Dr. Dai's addendum for physical exam. Results & Data Results & Data ([facility]) Vital Signs (Past 12 Hours) Vital Signs Temp Pulse Resp BP Pulse Ox O2 Del Method 07/08/22 14:05 35.7 C L 79 20 97 07/08/22 14:05 99/54 L 07/08/22 14:00 35.7 C L 79 21 100 07/08/22 13:55 35.6 C L 79 21 99 07/08/22 13:50 35.6 C L 78 22 98 07/08/22 13:45 35.5 C L 78 13 100 07/08/22 13:40 35.5 C L 80 24 96 07/08/22 13:35 35.4 C L 80 24 100 07/08/22 13:30 35.4 C L 80 17 100 07/08/22 13:25 35.3 C L 78 20 99 07/08/22 13:25 133/85 07/08/22 13:20 35.3 C L 77 23 100 07/08/22 13:20 144/72 H 07/08/22 13:15 35.3 C L 77 23 100 07/08/22 13:15 115/66 07/08/22 13:10 35.4 C L 75 23 100 07/08/22 13:10 115/70 07/08/22 13:05 35.4 C L 76 17 100 07/08/22 13:05 118/64 07/08/22 13:00 35.4 C L 77 18 100 07/08/22 13:00 127/74 07/08/22 12:55 35.4 C L 76 24 98 07/08/22 12:55 109/62 07/08/22 13:29 35.7 C L 07/08/22 12:50 35.4 C L 75 18 100 07/08/22 12:50 102/61 07/08/22 12:45 35.5 C L 76 22 98 07/08/22 12:45 113/51 L 07/08/22 12:40 35.5 C L 76 22 98 07/08/22 12:40 110/66 07/08/22 12:35 35.5 C L 77 29 H 07/08/22 12:34 35.5 C L 77 24 07/08/22 12:34 122/68 07/08/22 12:30 35.5 C L 81 23 07/08/22 12:25 35.5 C L 82 24 07/08/22 12:24 35.4 C L 83 12 07/08/22 12:00 83 100 07/08/22 12:00 99/66 L 07/08/22 11:55 83 17 100 07/08/22 11:55 141/60 H 07/08/22 11:50 83 19 100 07/08/22 11:50 133/69 07/08/22 11:49 132/81 07/08/22 11:49 84 20 100 07/08/22 11:45 35.8 C L 81 30 H 100 07/08/22 11:40 36.0 C L 81 27 H 100 07/08/22 11:40 112/56 L 07/08/22 11:35 36.0 C L 82 18 97 07/08/22 11:35 102/53 L 07/08/22 11:30 36.1 C L 88 14 07/08/22 11:25 36.1 C L 87 25 H 07/08/22 11:21 35.4 C L 88 29 H 100 07/08/22 11:21 100/75 07/08/22 11:20 36.1 C L 88 25 H 100 07/08/22 11:15 35.1 C L 85 19 100 07/08/22 11:10 36.4 C L 83 20 07/08/22 11:10 115/36 L 07/08/22 11:08 95/50 L 07/08/22 11:08 36.3 C L 83 18 07/08/22 11:05 84 20 07/08/22 11:01 84 18 100 07/08/22 11:01 91/56 L 07/08/22 11:00 86 20 100 07/08/22 10:55 85 18 100 07/08/22 10:51 84 18 100 Room Air 07/08/22 10:57 35.5 C L 07/08/22 10:57 100 Room Air 07/08/22 11:13 86 07/08/22 10:38 36.0 C L 34 H Laboratory Results Short CBC 07/08/22 07/08/22 Range/Units 11:05 12:01 WBC Cancelled 29.65 H Hgb Cancelled 12.0 L Hct Cancelled 39.8 L Plt Count Cancelled 375 BMP 07/08/22 07/08/22 11:05 12:01 Sodium Cancelled 149 H Potassium Cancelled 4.9 Chloride Cancelled 111 H Carbon Dioxide Cancelled 16 L BUN Cancelled 79 H Creatinine Cancelled 1.97 H Glucose Cancelled 768 H* Calcium Cancelled 10.3 H Cardiac Enzymes 07/08/22 Range/Units 12:01 Total Creatine Kinase 62 (30-223) U/L Liver Function 07/08/22 07/08/22 Range/Units 11:05 12:01 Total Bilirubin Cancelled 0.7 Direct Bilirubin Cancelled 0.1 AST Cancelled 9 L ALT Cancelled 8 Alkaline Phosphatase Cancelled 123 H Albumin Cancelled 2.7 L Urine 07/08/22 Range/Units 10:59 Urine Color Yellow Urine Appearance Cloudy A (Clear) Urine pH 5.0 (4.5-7.5) Ur Specific [place] 1.030 (1.000-1.030) Urine Protein Negative (Negative) Urine Glucose (UA) 3+ H (Negative) Diagnostic Findings Chest X-Ray 07/08/22 10:57 SINGLE VIEW CHEST CLINICAL HISTORY: Sepsis. FINDINGS: An AP, portable, upright chest radiograph is obtained. No prior studies are available for comparison at the time of dictation. The heart is top normal for projection noting atherosclerotic calcification of the thoracic aor ta. Nonspecific interstitial thickening is likely chronic. There is bibasilar scarring/atelectasis. No airspace consolidation or large pleural effusion is identified. No pneumothorax is seen. The skeletal structures are osteopenic. The bony thorax is grossly intact. IMPRESSION: No acute cardiopulmonary abnormality. ACT 112: Negative or not required by law. Electronically signed by: Jaylan Freeman M.D. 07/08/2022 12:[address] 07/08/22 11:35 CT cervical spine wo con CLINICAL HISTORY: AMS, fall TECHNIQUE: Multidetector row helical CT of the cervical spine was performed without administration of intravenous contrast. Coronal and sagittal reformations were obtained. Automated dose lowering techniques and/or adjustment according to patient size were utilized for this exam. Comparison: None available at the time of this dictation. FINDINGS: No acute fractures or subluxations are identified. The vertebral body heights and disk spaces are well maintained. The alignment is normal. Soft tissues are unremarkable. Incidental note is made of periapical lucencies and dental caries. IMPRESSION: 1. No evidence of acute bony injury. 2. Dental caries and periapical lucencies which may represent periapical abscesses. ACT 112: Negative or not required by law. Electronically signed by: Charles Milian M.D. 07/08/2022 12:[address] 07/08/22 11:35 CT SCAN OF THE CHEST WITHOUT IV CONTRAST CLINICAL HISTORY: Sepsis. Change in mental status. COMPARISON STUDY: No priors. TECHNIQUE: CT scan of the thorax was performed from the thoracic inlet to the upper abdomen. Images are reviewed in the axial, sagittal, and coronal planes. IV contrast was not administered for this examination as per the referring clinician. A dose lowering technique was utilized adhering to the principles of ALARA. The examination is compromised by motion artifact. There is also streak artifact from the arms which could not be elevated above the chest. FINDINGS: Thyroid: Imaged portions of the thyroid gland are normal in size and attenuation. Thoracic aorta: There is atherosclerotic calcification of the thoracic aorta, which is normal in caliber and demonstrates standard 3-vessel arch anatomy. Heart: The heart is normal in size and without pericardial effusion. There are coronary artery calcifications. Lungs and pleural spaces: Evaluation of the lung parenchyma is compromised by motion artifact. No airspace consolidation or pleural effusion is identified. Secretions are noted in the trachea. Mediastinum: There is no mediastinal lymphadenopathy. Emani: Not well assessed without IV contrast. Axillae: There is no axillary lymphadenopathy. Upper abdomen: There are calcified gallstones. A small hiatal hernia is noted. Skeletal structures: The skeletal structures are osteopenic. No lytic or blastic bony lesions are seen. IMPRESSION: 1. Streak and motion compromised examination. 2. There is no airspace consolidation or pleural effusion. 3. Cholelithiasis. 4. Additional findings as above. ACT 112: Negative or not required by law. Electronically signed by: Jaylan Freeman M.D. 07/08/2022 12:[address] 07/08/22 11:35 CT SCAN OF THE RIGHT FOOT WITHOUT IV CONTRAST CLINICAL HISTORY: Sepsis. COMPARISON STUDY: CT scan of the right foot dated 02/17/2022. TECHNIQUE: CT scan of the right foot is performed from the ankle to the base of the foot. Images are reviewed in the axial, sagittal, and coronal planes. IV co ntrast was not administered for this examination. A dose lowering technique was utilized adhering to the principles of ALARA. Note that interpretation is suboptimal without current plain film correlate. FINDINGS: The skeletal structures are osteopenic. 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 Erosive/destructive change is seen involving the medial cuneiform on axial image #141 and the base of the first metatarsal on image #139 consistent with osteomyelitis. No additional foci of bony erosion are clearly identified. There is extensive superficial and deep soft tissue gas throughout the right foot and ankle. Intraosseous gas is seen throughout the tarsal and metatarsal bones. There is diffuse superficial and deep soft tissue edema throughout the right lower extremity. No organized fluid collection is identified to suggest abscess on this unenhanced examination. There is generalized atrophy of the regional musculature. There is atherosclerotic calcification of regional arteries. The Achilles tendon is intact as imaged. IMPRESSION: 1. Extensive superficial and deep soft tissue gas is seen throughout the right foot and ankle with extensive foci of intraosseous gas. This is consistent with necrotizing infection/fasciitis. Emergent surgical consultation is advised. 2. Superficial and deep soft tissue edema there is seen throughout the visualized right lower extremity. There is no organized fluid collection clearly identify to indication abscess. 3. Erosive/destructive change within the medial cuneiform and base of the first metatarsal is typical for osteomyelitis. 4. Postsurgical change as above. ACT 112: Negative or not required by law. Electronically signed by: Jaylan Freeman M.D. 07/08/2022 12:[address] 07/08/22 11:[address] DOSE: HISTORY: Sepsis, altered mental status TECHNIQUE: Multiaxial CT images of the head were performed without the use of intravenous contrast. Automated exposure control was utilized for this study. A dose lowering technique was utilized adhering to the principles of ALARA. Comparison: None. Findings: The mastoid air cells are clear. There is near complete opacification of the sphenoid sinus. Focal bony defect at the posterior sphenoid sinus/clivus. This could be due to old postoperative change. No calvarial fractures identified. The orbits are unremarkable. Punctate calcification within the felipe. There is no mass, hematoma, midline shift. Atrophy and microvascular ischemic changes are again noted. 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 No definite acute infarct identified. 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 No definite acute infarct identified. ACT 112: Negative or not required by law. Electronically signed by: Mau Hewitt M.D. 07/08/2022 12:39 PM Abdomen/Pelvis CT 07/08/22 11:37 CT abd pelvis wo con CLINICAL HISTORY: Sepsis, AMS TECHNIQUE: Helical axial images of the abdomen and pelvis were obtained. Automated dose lowering techniques and/or adjustment according to patient size were utilized for this exam. This exam was performed without intravenous cont rast. CT DOSE: 4137.12 mGy.cm COMPARISON: Comparison is made to CT abdomen pelvis 02/18/2022 FINDINGS: Lower chest: No acute abnormality. Liver: Unremarkable. No focal lesions are seen. Gallbladder and biliary tree: Calcified stones are seen in the contracted gallbladder. No intra- or extrahepatic biliary ductal dilation. Pancreas: Unremarkable, no focal lesions. Spleen: Unremarkable. Adrenals: Thickening of the adrenal glands noted. Kidneys and ureters: Unremarkable. Bladder: Limited evaluation due to underdistention. Reproductive organs: Unremarkable. Bowel: A prominent stool ball is noted in the rectum with mild thickening of the rectal wall. The appendix is normal. Lymph nodes Retroperitoneal: Unremarkable. Pelvic: Subcentimeter lymph nodes are noted. 13 mm right inguinal lymph node is seen. Mesenteric: Unremarkable. Peritoneum: Normal. Vessels: Atherosclerotic calcifications are seen. Narrowing of the SMA origin is seen. Abdominal wall: Unremarkable. Bones: Degenerative changes in the visualized spine. IMPRESSION: 1. There is rectal wall prominence with a large stool ball which may represent mild stercoral colitis. Otherwise no acute abnormality is seen. 2. Cholelithiasis without cholecystitis. ACT 112: Negative or not required by law. Electronically signed by: Charles Milian M.D. 07/08/2022 12:45 PM Code Status & VTE Plan VTE Prophylaxis Plan VTE Prophylaxis will be ordered: Yes Supervising Physician Co-Signing Physician Notes Pt is a 61 y/o M with hx of DMII, PAD, hx of R diabetic Foot ulcer with 4th and 5th toes amputation, R foot osteomyelitis, PAD, HTN, CVA, peripheral neuropathy admitted for R foot osteomyelitis, necrotizing faciitis, Dental abscess, DKA with metabolic encephalopathy. PE: Slightly lethargic but follows command HEENT: swallow R side of the face near the parotid area, dry mucus membrane, unable to completely examine the oropharynx bc pt was unable to open the mouth completely Lungs: CTA, no wheezing or crackles Cardiac: normal S1/S2, no murmur Abd: ND, soft, but diffuse TTP MSK: R foot: swollen and erythematous and foul smelling with multiple open wound with necrotic tissue with possible feces Psych: lethargic, follows command and able to say his name A/P: R foot osteomyelitis with necrotizing fasciitis and diabetic foot ulcer and severe sepsis: -started the pt on Vanc and zosyn -podiatry aware --- OR today ---- will keep pt NPO -spoke to pts sister in law (Elvira) ---- she will in the hospital to consent for surgery -admit to PCu and will obtain echo -pts Bp and Temp is responding slowly to Ayaka hugger and IVF --- but temp continues to remain around 35.7C and 90s/50s --- informed the ICU regarding pts current status Metabolic encephalopathy with DKA and KRYSTINA: -pts mental status is improving - CT head: no acute finding -started on insulin drip -will closely monitor BMP -NPO Stercoral colitis: -pt is currently NPO for surgery -will start pt on bowel regimen when his glucose is controlled, improving mental status and after surgery Dental abscess: -pt is currently on zosyn and vanc -oral surgery consult Elevated trop: -EKG: NSR, TWI on V2-V4 (EKG from 09/2021 outpt had similar appearance) --- will trend trop -admit to tele -will obtain resting echo Agree with A/P by Xiomy Bedoya PA-C
[2022-07-08] MEDS: CLINDAMYCIN/D5W 900 MG/50 ML PREMIX BAG IV SCH (15:15)
[2022-07-08 15:20] LABS: BUN Creatinine Ratio 40.9 (10-20); Calcium 9.4 mg/dl (8.5-10.1); Creatinine Clr Calc Pharmacy 48.2 ml/min; Est GFR (African American) 46.4 ml/min; Magnesium 2.7 mg/dl (1.7-2.4); Phosphorus 5.7 mg/dl (2.5-4.9); Potassium 3.7 mmol/L (3.5-5.1)
--- NOTE | 2022-07-08 16:02 | Anesthesiology Consultation ---
Date of Service July 08, 2022 Assessment & Plan (1) Encounter for pre-operative examination: Chart Review Chart Review: Acceptable Risk for Surgery and Patient NOT seen in Pre Admission Testing Consults Requested none History Surgery Operation Date: 07/08/22 12:30 Proposed Procedures p Right Foot and Ankle Wound Debridement - Gianluca Jackson DPM, MS s with Possible Excision of Bone - Gianluca Jackson DPM, MS Height/Weight Height: 6 ft Weight: 92.5 kg Allergies Allergy/AdvReac Type Severity Reaction Status Date / Time aloe vera Allergy Unknown Unknown Verified 07/08/22 11:58 Sulfa (Sulfonamide AdvReac Mild Nausea Verified 07/08/22 11:58 Antibiotics) Medications Home Medications Medication Instructions Recorded Confirmed Last Taken ammonium lactate 12 % lotion 1 applic topical UD PRN dry skin 02/17/22 07/08/22 Unknown on legs clopidogrel 75 mg tablet 75 mg PO QAM 02/17/22 07/08/22 02/17/22 dutasteride 0.5 mg capsule 0.5 mg PO QAM 02/17/22 07/08/22 02/17/22 empagliflozin 10 mg tablet 10 mg PO QAM 02/17/22 07/08/22 02/17/22 (Jardiance) metoprolol tartrate 25 mg tablet 25 mg PO QAM 02/17/22 07/08/22 02/17/22 olmesartan 40 mg tablet 40 mg PO QAM 02/17/22 07/08/22 02/17/22 pantoprazole 40 mg tablet,delayed 40 mg PO QAM 02/17/22 07/08/22 02/17/22 release rosuvastatin 10 mg tablet 10 mg PO QPM 02/17/22 07/08/22 02/16/22 amlodipine 5 mg tablet 5 mg PO DAILY 06/23/22 07/08/22 Unknown folic acid 1 mg tablet 0 mg PO DAILY 07/08/22 07/08/22 Unknown vitamin B complex 1 tab PO DAILY 07/08/22 07/08/22 Unknown Active Medications Generic Name Dose Route Start Last Admin Trade Name Freq PRN Reason Stop Dose Admin Insulin Human Regular 250 250 mls @ 9.3 mls/hr 07/08/22 13:30 07/08/22 13:51 units/ Sodium Chloride IV 08/07/22 13:29 9.3 units/hr .Q24H HOANG 9.3 mls/hr Administration Protocol 9.3 UNITS/HR Potassium Chloride/Sodium Chloride 20 meq in 1,000 mls @ 250 mls/hr 07/08/22 13:30 07/08/22 13:50 1/2 Nss + 20meq Kcl 1000ml IV 08/07/22 13:29 250 mls/hr .Q4H HOANG Administration Protocol Clindamycin Phosphate 900 mg in 50 mls @ 100 mls/hr 07/08/22 15:00 07/08/22 16:00 Cleocin/D5w IV 07/15/22 14:59 Infused Q8H HOANG Infusion Past Medical History Medical History Amputation toe Right 4th Toe- 02/27/22 BPH (benign prostatic hyperplasia) Cellulitis of toe of right foot Diabetes mellitus Diabetic ulcer of right fifth toe Dyslipidemia Essential hypertension Former smoker GERD (gastroesophageal reflux disease) Hyponatremia Mixed hyperlipidemia Neuropathy Obesity Osteomyelitis of right foot Peripheral arterial disease S/P arteriogram of extremity Right leg, lithotripsy of proximal popliteal artery, mechanical closure of left femoral artery, 02/25/22 Stroke July 2020 Right upper extremity weakness Surgical complication involving skin Application of Theraskin Graft to Right Forefoot-03/28/22 Past Family History Family History Other Diabetes Past Surgical History Surgical History History of incision and drainage partial excision of fifth ray of right foot, delayed primary closure 02/18/22 S/P debridement Right foot debridement, wound vac application 02/21/22 Social History Smoking Status: Unknown if ever smoked tobacco type: cigarettes Hx Alcohol Use: No Hx Substance Use: No substance use type: does not use Physical Exam Vital Signs Last Vital Signs Temp 96.3 F L 07/08/22 14:05 Pulse 75 07/08/22 15:47 Resp 23 07/08/22 15:47 BP 98/53 L 07/08/22 15:47 Pulse Ox 100 07/08/22 15:47 O2 Del Method Room Air 07/08/22 15:36 Testing Laboratory Results 07/08/22 12:01 07/08/22 14:32 PT 11.9 Seconds (9.0-12.0) 07/08/22 12:01 INR 1.1 (0.9-1.1) 07/08/22 12:01 APTT 20.1 Seconds (21.0-31.0) L 07/08/22 12:01 Urine Color Yellow 07/08/22 10:59 Urine Appearance Cloudy (Clear) A 07/08/22 10:59 Urine pH 5.0 (4.5-7.5) 07/08/22 10:59 Ur Specific [place] 1.030 (1.000-1.030) 07/08/22 10:59 Urine Protein Negative (Negative) 07/08/22 10:59 Urine Glucose (UA) 3+ (Negative) H 07/08/22 10:59 Urine Ketones 1+ (Negative) H 07/08/22 10:59 Urine Nitrite Negative (Negative) 07/08/22 10:59 Ur Leukocyte Esterase 1+ (Negative) H 07/08/22 10:59 Urine WBC (Auto) >30 /hpf (0-5) H 07/08/22 10:59 Urine RBC (Auto) 0-4 /hpf (0-4) 07/08/22 10:59 U Hyaline Cast (Auto) 1-5 /lpf (0-5) 07/08/22 10:59 U Epithel Cells (Auto) 5-10 /lpf (0-5) H 07/08/22 10:59 Urine Bacteria (Auto) 2+ (Negative) H 07/08/22 10:59 Blood Type O Negative 07/08/22 11:05 Antibody Screen NEGATIVE 07/08/22 11:05 07/08/22 07/08/22 07/08/22 15:54 14:53 10:46 POC Glucose 502 H* Pending Pending Electrocardiogram Date: 07/08/22 Findings: + NSR @ Chest X-Ray Date: 07/08/22 Findings: + NAD
[2022-07-08] MEDS: INSULIN ASPART PER UNIT CHARGE SC SCH ×2 (16:06→21:19)
--- NOTE | 2022-07-08 16:52 | Surgery Consultation ---
Date of Consultation July 08, 2022 Assessment & Plan (1) Necrotizing fasciitis: Patient seen, evaluated, and treated. Patient requires immediate OR surgical care including but not limiting to aggressive surgical exploration and debridement of necrotic tissue. Patient may ultimately require Below Knee Amputation. This was reviewed with Patient and family. I reviewed procedure in detail as well as postoperative recovery. I discussed expectations and patient's current high risk of loss of limb. All questions answered. I have discussed procedure in detail as well as postoperative recovery. All potential risks, benefits, complications, alternatives, rehab, potential for incomplete relief of symptoms, need for further surgery, DVT, PE, , persistent pain, swelling, scarring, weakness, neurovascular, wound complications and potential for amputations were discussed with patient. Unwanted outcomes such as, but not limited to were reviewed including under correction, overcorrection, return of deformity, infection. All questions were answered. Patient and sister in law havd decided to proceed with procedure as indicated. (2) Surgical wound, non healing: History of Present Illness History of Present Illness Patient is a 61yo M seen for surgical consultation. Patient past medical history positive for previous diabetic wounds, osteomyelitis, history of CVA, hypertension, hyperlipidemia, DM2 on oral medications, BPH, past tobacco abuse and other medical problems listed below. Patient presented to [facility] ED earlier today with AMS in setting of foot wounds. Patient lives with his brother and [id number].Patient unable to answer questions and documentation taken from previous documentation. Patient was reportedly noticed to be confused and less responsive yesterday by sister in law. Per ED attending Patient was brought in covered in feces in an obtunded state with wound on left foot. Patient previously admitted to [facility] for diabetic foot wounds 4 months ago and found to have osteomyelitis. He is status post amputation of 4th and 5th toes as well as right leg arteriogram lithotripsy the proximal popliteal artery and mechanical closure of the left femoral artery by Dr. Ocampo.Patient was then discharged to SNF and received 6 weeks total of IV abx. Patient was referred to [facility] wound care center. Underwent consultation there at the end of May but reportedly was not agreeable to treatment plan that included debridement and a follow-up appointment was not made. Unable to obtain ROS from patient as he is only oriented to person at this time. Allergies Allergy/AdvReac Type Severity Reaction Status Date / Time aloe vera Allergy Unknown Unknown Verified 07/08/22 11:58 Sulfa (Sulfonamide AdvReac Mild Nausea Verified 07/08/22 11:58 Antibiotics) Home Medications Medication Instructions Recorded Confirmed Type ammonium lactate 12 % lotion 1 applic topical UD PRN dry skin 02/17/22 07/08/22 History on legs clopidogrel 75 mg tablet 75 mg PO QAM 02/17/22 07/08/22 History dutasteride 0.5 mg capsule 0.5 mg PO QAM 02/17/22 07/08/22 History empagliflozin 10 mg tablet 10 mg PO QAM 02/17/22 07/08/22 History (Jardiance) metoprolol tartrate 25 mg tablet 25 mg PO QAM 02/17/22 07/08/22 History olmesartan 40 mg tablet 40 mg PO QAM 02/17/22 07/08/22 History pantoprazole 40 mg tablet,delayed 40 mg PO QAM 02/17/22 07/08/22 History release rosuvastatin 10 mg tablet 10 mg PO QPM 02/17/22 07/08/22 History amlodipine 5 mg tablet 5 mg PO DAILY 06/23/22 07/08/22 History folic acid 1 mg tablet 0 mg PO DAILY 07/08/22 07/08/22 History vitamin B complex 1 tab PO DAILY 07/08/22 07/08/22 History Patient History Medical History Amputation toe Right 4th Toe- 02/27/22 BPH (benign prostatic hyperplasia) Cellulitis of toe of right foot Diabetes mellitus Diabetic ulcer of right fifth toe Dyslipidemia Essential hypertension Former smoker GERD (gastroesophageal reflux disease) Hyponatremia Mixed hyperlipidemia Neuropathy Obesity Osteomyelitis of right foot Peripheral arterial disease S/P arteriogram of extremity Right leg, lithotripsy of proximal popliteal artery, mechanical closure of left femoral artery, 02/25/22 Stroke July 2020 Right upper extremity weakness Surgical complication involving skin Application of Theraskin Graft to Right Forefoot-03/28/22 Surgical History History of incision and drainage partial excision of fifth ray of right foot, delayed primary closure 02/18/22 S/P debridement Right foot debridement, wound vac application 02/21/22 Family History Other Diabetes Social History Smoking Status: Unknown if ever smoked Hx Alcohol Use: No Hx Substance Use: No Preferred Language: Faroese Communication Ability: Effective Insulation Cupola Operator Required: No Beliefs That Will Affect Care: None marital status: Single Current Living Situation: Family Current Living Situation Comment: Nephew How many Children do You have: 9 Feels Safe at Home: Yes Assistive Devices: Brace/Splint/Immobilizer, Walker and Wheelchair Review of Systems Review of Systems: Unobtainable due to reduced consciousness Physical Exam Respiratory: normal respiratory effort Cardiovascular: Rate/Rhythm: regular rate and regular rhythm Skin: Right foot is swollen and erythematous. The multiple full thickness wounds are foul smelling, heavy with necrotic tissue and with possible feces Neurologic: Absent epicritic sensation Psychiatric: Orientation: oriented to person Apperance: + disheveled Results & Data ([facility]) Vital Signs (Past 12 Hours) Vital Signs Temp Pulse Pulse Resp BP BP Pulse Ox 07/08/22 16:30 36.7 C 07/08/22 16:17 36.7 C 77 33 H 93/48 L 98 07/08/22 15:47 75 23 98/53 L 100 07/08/22 15:36 75 18 88/51 L 100 07/08/22 15:14 79 16 102/55 L 100 07/08/22 15:03 79 07/08/22 14:05 35.7 C L 79 20 97 07/08/22 14:05 99/54 L 07/08/22 14:00 35.7 C L 79 21 100 07/08/22 13:55 35.6 C L 79 21 99 07/08/22 13:50 35.6 C L 78 22 98 07/08/22 13:45 35.5 C L 78 13 100 07/08/22 13:40 35.5 C L 80 24 96 07/08/22 13:35 35.4 C L 80 24 100 07/08/22 13:30 35.4 C L 80 17 100 07/08/22 13:25 35.3 C L 78 20 99 07/08/22 13:25 133/85 07/08/22 13:20 35.3 C L 77 23 100 07/08/22 13:20 144/72 H 07/08/22 13:15 35.3 C L 77 23 100 07/08/22 13:15 115/66 07/08/22 13:10 35.4 C L 75 23 100 07/08/22 13:10 115/70 07/08/22 13:05 35.4 C L 76 17 100 07/08/22 13:05 118/64 07/08/22 13:00 35.4 C L 77 18 100 07/08/22 13:00 127/74 07/08/22 12:55 35.4 C L 76 24 98 07/08/22 12:55 109/62 07/08/22 13:29 35.7 C L 07/08/22 12:50 35.4 C L 75 18 100 07/08/22 12:50 102/61 07/08/22 12:45 35.5 C L 76 22 98 07/08/22 12:45 113/51 L 07/08/22 12:40 35.5 C L 76 22 98 07/08/22 12:40 110/66 07/08/22 12:35 35.5 C L 77 29 H 07/08/22 12:34 35.5 C L 77 24 07/08/22 12:34 122/68 07/08/22 12:30 35.5 C L 81 23 07/08/22 12:25 35.5 C L 82 24 07/08/22 12:24 35.4 C L 83 12 07/08/22 12:00 83 100 07/08/22 12:00 99/66 L 07/08/22 11:55 83 17 100 07/08/22 11:55 141/60 H 07/08/22 11:50 83 19 100 07/08/22 11:50 133/69 07/08/22 11:49 132/81 07/08/22 11:49 84 20 100 07/08/22 11:45 35.8 C L 81 30 H 100 07/08/22 11:40 36.0 C L 81 27 H 100 07/08/22 11:40 112/56 L 07/08/22 11:35 36.0 C L 82 18 97 07/08/22 11:35 102/53 L 07/08/22 11:30 36.1 C L 88 14 07/08/22 11:25 36.1 C L 87 25 H 07/08/22 11:21 35.4 C L 88 29 H 100 07/08/22 11:21 100/75 07/08/22 11:20 36.1 C L 88 25 H 100 07/08/22 11:15 35.1 C L 85 19 100 07/08/22 11:10 36.4 C L 83 20 07/08/22 11:10 115/36 L 07/08/22 11:08 95/50 L 07/08/22 11:08 36.3 C L 83 18 07/08/22 11:05 84 20 07/08/22 11:01 84 18 100 07/08/22 11:01 91/56 L 07/08/22 11:00 86 20 100 07/08/22 10:55 85 18 100 07/08/22 10:51 84 18 100 07/08/22 10:57 35.5 C L 07/08/22 10:57 100 07/08/22 11:13 86 07/08/22 10:38 36.0 C L 34 H O2 Del Method 07/08/22 16:30 07/08/22 16:17 Room Air 07/08/22 15:47 07/08/22 15:36 Room Air 07/08/22 15:14 Room Air 07/08/22 15:03 07/08/22 14:05 07/08/22 14:05 07/08/22 14:00 07/08/22 13:55 07/08/22 13:50 07/08/22 13:45 07/08/22 13:40 07/08/22 13:35 07/08/22 13:30 07/08/22 13:25 07/08/22 13:25 07/08/22 13:20 07/08/22 13:20 07/08/22 13:15 07/08/22 13:15 07/08/22 13:10 07/08/22 13:10 07/08/22 13:05 07/08/22 13:05 07/08/22 13:00 07/08/22 13:00 07/08/22 12:55 07/08/22 12:55 07/08/22 13:29 07/08/22 12:50 07/08/22 12:50 07/08/22 12:45 07/08/22 12:45 07/08/22 12:40 07/08/22 12:40 07/08/22 12:35 07/08/22 12:34 07/08/22 12:34 07/08/22 12:30 07/08/22 12:25 07/08/22 12:24 07/08/22 12:00 07/08/22 12:00 07/08/22 11:55 07/08/22 11:55 07/08/22 11:50 07/08/22 11:50 07/08/22 11:49 07/08/22 11:49 07/08/22 11:45 07/08/22 11:40 07/08/22 11:40 07/08/22 11:35 07/08/22 11:35 07/08/22 11:30 07/08/22 11:25 07/08/22 11:21 07/08/22 11:21 07/08/22 11:20 07/08/22 11:15 07/08/22 11:10 07/08/22 11:10 07/08/22 11:08 07/08/22 11:08 07/08/22 11:05 07/08/22 11:01 07/08/22 11:01 07/08/22 11:00 07/08/22 10:55 07/08/22 10:51 Room Air 07/08/22 10:57 07/08/22 10:57 Room Air 07/08/22 11:13 07/08/22 10:[address] SCAN OF THE RIGHT FOOT WITHOUT IV CONTRAST CLINICAL HISTORY: Sepsis. COMPARISON STUDY: CT scan of the right foot dated 02/17/2022. TECHNIQUE: CT scan of the right foot is performed from the ankle to the base of the foot. Images are reviewed in the axial, sagittal, and coronal planes. IV contrast was not administered for this examination. A dose lowering technique was utilized adhering to the principles of ALARA. Note that interpretation is suboptimal without current plain film correlate. FINDINGS: The skeletal structures are osteopenic. 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 Erosive/destructive change is seen involving the medial cuneiform on axial image #141 and the base of the first metatarsal on image #139 consistent with osteomyelitis. No additional foci of bony erosion are clearly identified. There is extensive superficial and deep soft tissue gas throughout the right foot and ankle. Intraosseous gas is seen throughout the tarsal and metatarsal bones. There is diffuse superficial and deep soft tissue edema throughout the right lower extremity. No organized fluid collection is identified to suggest abscess on this unenhanced examination. There is generalized atrophy of the regional musculature. There is atherosclerotic calcification of regional arteries. The Achilles tendon is intact as imaged. IMPRESSION: 1. Extensive superficial and deep soft tissue gas is seen throughout the right foot and ankle with extensive foci of intraosseous gas. This is consistent with necrotizing infection/fasciitis. Emergent surgical consultation is advised. 2. Superficial and deep soft tissue edema there is seen throughout the visualized right lower extremity. There is no organized fluid collection clearly identify to indication abscess. 3. Erosive/destructive change within the medial cuneiform and base of the first metatarsal is typical for osteomyelitis. 4. Postsurgical change as above. ACT 112: Negative or not required by law. Electronically signed by: Jaylan Freeman M.D. 07/08/2022 12:49 PM
[2022-07-08] MEDS ORDERED: fentaNYL citrate PF 100 MCG/2 ML VIAL ONE (17:09)
[2022-07-08] MEDS ORDERED: LIDOCAINE 2% MPF LOCAL 5 ML VIAL INFIL ONE (17:09)
[2022-07-08] MEDS ORDERED: MIDAZOLAM HCL 1 MG/ML 2ML VIAL ONE (17:09)
[2022-07-08] MEDS ORDERED: PROPOFOL IV EMULSION 10 MG/ML 20 ML VIAL IV ONE (17:09)
[2022-07-08] MEDS ORDERED: ONDANSETRON INJ 2 MG/ML 2 ML VIAL ONE (17:09)
--- NOTE | 2022-07-08 17:20 | Anesthesiology Consultation ---
Date of Service July 08, 2022 Assessment & Plan Chart Review Chart Review: Acceptable Risk for Surgery and Patient NOT seen in Pre Admission Testing Consults Requested none ASA [id number] Proposed Anesthesia Anesthesia Type: General Anesthesia Line Insertion: Arterial line and Central Venous Catheter Risk / Benefits Reviewed With: PT / POA / Parent / Guardian, Accepts Plan and Informed Consent Obtained History Surgery Operation Date: 07/08/22 12:30 Proposed Procedures p Right Foot and Ankle Wound Debridement - Gianluca Jakcson DPM, MS s with Possible Excision of Bone - Gianluca Jackson DPM, MS Height/Weight Height: 6 ft Weight: 92.5 kg Allergies Allergy/AdvReac Type Severity Reaction Status Date / Time aloe vera Allergy Unknown Unknown Verified 07/08/22 11:58 Sulfa (Sulfonamide AdvReac Mild Nausea Verified 07/08/22 11:58 Antibiotics) Medications Home Medications Medication Instructions Recorded Confirmed Last Taken ammonium lactate 12 % lotion 1 applic topical UD PRN dry skin 02/17/22 07/08/22 Unknown on legs clopidogrel 75 mg tablet 75 mg PO QAM 02/17/22 07/08/22 02/17/22 dutasteride 0.5 mg capsule 0.5 mg PO QAM 02/17/22 07/08/22 02/17/22 empagliflozin 10 mg tablet 10 mg PO QAM 02/17/22 07/08/22 02/17/22 (Jardiance) metoprolol tartrate 25 mg tablet 25 mg PO QAM 02/17/22 07/08/22 02/17/22 olmesartan 40 mg tablet 40 mg PO QAM 02/17/22 07/08/22 02/17/22 pantoprazole 40 mg tablet,delayed 40 mg PO QAM 02/17/22 07/08/22 02/17/22 release rosuvastatin 10 mg tablet 10 mg PO QPM 02/17/22 07/08/22 02/16/22 amlodipine 5 mg tablet 5 mg PO DAILY 06/23/22 07/08/22 Unknown folic acid 1 mg tablet 0 mg PO DAILY 07/08/22 07/08/22 Unknown vitamin B complex 1 tab PO DAILY 07/08/22 07/08/22 Unknown Active Medications Generic Name Dose Route Start Last Admin Trade Name Freq PRN Reason Stop Dose Admin Insulin Human Regular 250 250 mls @ 9.3 mls/hr 07/08/22 13:30 07/08/22 16:06 units/ Sodium Chloride IV 08/07/22 13:29 9.3 units/hr .Q24H HOANG 9.3 mls/hr Titration Protocol 9.3 UNITS/HR Potassium Chloride/Sodium Chloride 20 meq in 1,000 mls @ 250 mls/hr 07/08/22 13:30 07/08/22 13:50 1/2 Nss + 20meq Kcl 1000ml IV 08/07/22 13:29 250 mls/hr .Q4H HOANG Administration Protocol Clindamycin Phosphate 900 mg in 50 mls @ 100 mls/hr 07/08/22 15:00 07/08/22 16:00 Cleocin/D5w IV 07/15/22 14:59 Infused Q8H HOANG Infusion Insulin Aspart 0 units 07/08/22 16:30 07/08/22 16:06 Insulin Aspart Per Unit SC 08/07/22 16:29 Not Given ACHS HOANG NPO Date Last Intake of Fluids: 07/07/22 Time Last Intake of Fluids: 18:00 Date Last Intake of Solids: 07/07/22 Time Last Intake of Solids: 09:00 Last Intake of Solids Comment: "atleast 1 or 2 days since last solid" Past Medical History Medical History Amputation toe Right 4th Toe- 02/27/22 BPH (benign prostatic hyperplasia) Cellulitis of toe of right foot Diabetes mellitus Diabetic ulcer of right fifth toe Dyslipidemia Essential hypertension Former smoker GERD (gastroesophageal reflux disease) Hyponatremia Mixed hyperlipidemia Neuropathy Obesity Osteomyelitis of right foot Peripheral arterial disease S/P arteriogram of extremity Right leg, lithotripsy of proximal popliteal artery, mechanical closure of left femoral artery, 02/25/22 Stroke July 2020 Right upper extremity weakness Surgical complication involving skin Application of Theraskin Graft to Right Forefoot-03/28/22 Exercise / Class Metabolic Activity II 4-5 Yardwork/Stairs/Walk up hill Past Family History Family History Other Diabetes Past Surgical History Surgical History History of incision and drainage partial excision of fifth ray of right foot, delayed primary closure 02/18/22 S/P debridement Right foot debridement, wound vac application 02/21/22 Past Anesthesia History No Hx of Anesthesia Complications and No Family Hx of Anesthesia Complications History of PONV No Hx of PONV and No Hx of Motion Sickness Social History Smoking Status: Unknown if ever smoked tobacco type: cigarettes Hx Alcohol Use: No Hx Substance Use: No substance use type: does not use Physical Exam Vital Signs Last Vital Signs Temp 36.7 C 07/08/22 17:00 Pulse 78 07/08/22 17:00 Resp 24 07/08/22 17:00 BP 96/52 L 07/08/22 17:00 Pulse Ox 94 07/08/22 17:00 O2 Del Method Room Air 07/08/22 17:00 Constitutional + altered mental status ENMT Mouth: + poor dentition Thyromental Distance: > or= 3.5 Finger Breadths Mallampati Class: III Neck normal visual inspection Respiratory normal respiratory effort Auscultation: lungs clear to auscultation bilaterally Cardiovascular Rate/Rhythm: regular rate and regular rhythm Skin + lesion (foot) Psychiatric turns toward loud voice Testing Laboratory Results 07/08/22 12:01 07/08/22 14:32 PT 11.9 Seconds (9.0-12.0) 07/08/22 12:01 INR 1.1 (0.9-1.1) 07/08/22 12:01 APTT 20.1 Seconds (21.0-31.0) L 07/08/22 12:01 Urine Color Yellow 07/08/22 10:59 Urine Appearance Cloudy (Clear) A 07/08/22 10:59 Urine pH 5.0 (4.5-7.5) 07/08/22 10:59 Ur Specific [place] 1.030 (1.000-1.030) 07/08/22 10:59 Urine Protein Negative (Negative) 07/08/22 10:59 Urine Glucose (UA) 3+ (Negative) H 07/08/22 10:59 Urine Ketones 1+ (Negative) H 07/08/22 10:59 Urine Nitrite Negative (Negative) 07/08/22 10:59 Ur Leukocyte Esterase 1+ (Negative) H 07/08/22 10:59 Urine WBC (Auto) >30 /hpf (0-5) H 07/08/22 10:59 Urine RBC (Auto) 0-4 /hpf (0-4) 07/08/22 10:59 U Hyaline Cast (Auto) 1-5 /lpf (0-5) 07/08/22 10:59 U Epithel Cells (Auto) 5-10 /lpf (0-5) H 07/08/22 10:59 Urine Bacteria (Auto) 2+ (Negative) H 07/08/22 10:59 Blood Type O Negative 07/08/22 11:05 Antibody Screen NEGATIVE 07/08/22 11:05 07/08/22 10:59 Gram Stain - Final Foot,Right 07/08/22 07/08/22 07/08/22 15:54 14:53 10:46 POC Glucose 502 H* 514 H* > 600 H* Electrocardiogram Date: 07/08/22 Findings: + NSR @ Chest X-Ray Date: 07/08/22 Findings: + NAD
[2022-07-08] MEDS ORDERED: PHENYLEPHRINE HCL 25 MG/250 ML NSS IV ONE (17:29)
[2022-07-08] MEDS ORDERED: ALBUMIN HUMAN 5% 12.5 GM/250 ML VIAL IV ONE (17:29)
--- NOTE | 2022-07-08 18:02 | History & Physical Bridge Note ---
Date of Service July 08, 2022 History & Physical Bridge Note I have examined the patient, reviewed the History & Physical and in the interval since the performance of the History & Physical I have noted the following changes of clinical significance: no changes noted
[2022-07-08 18:17] LABS: BUN Creatinine Ratio 41.9 (10-20); Calcium 9.5 mg/dl (8.5-10.1); Creatinine Clr Calc Pharmacy 54.6 ml/min; Est GFR (African American) 53.9 ml/min; Est GFR (Non-African American) 46.5 ml/min; Magnesium 2.6 mg/dl (1.7-2.4); Phosphorus 4.3 mg/dl (2.5-4.9); Potassium 3.6 mmol/L (3.5-5.1)
[2022-07-08] MEDS ORDERED: HYDROCORTISONE SOD SUCCINATE 100 MG/2 ML VIAL ONE (18:34)
[2022-07-08 19:01] LABS: Troponin I High Sensitivity 31.8 pg/ml (0-20)
--- NOTE | 2022-07-08 19:34 | Post Operative Brief Note ---
Immediate Post Op Note v1 Date of Surgery July 08, 2022 Pre & Post Diagnosis Operation Date: 07/08/22 12:30 <No data on this case meets the specified criteria> I identified the patient and participated in the time-out.: Yes Procedure Operation Date: 07/08/22 12:30 <No data on this case meets the specified criteria> Surgeon Gianluca Jackson, MAYRAM, MS Beach Attendant None Estimated Blood Loss 5 Findings Consistent with Post-Op Diagnosis Extensive necrosis, gas gangrene
--- NOTE | 2022-07-08 19:54 | Fluoroscopy Report ---
INTRAOPERATIVE RADIOGRAPHS CLINICAL HISTORY: Right lower extremity debridement. Sepsis. Fluoro time: 6 seconds Exposure: 0.2 mGy FINDINGS: 3 spot fluoroscopic images of the right hindfoot are correlated with CT of the foot perform ed earlier the same day 07/08/2022. There has been amputation of the forefoot at the level of the dist al tarsal row. There is a large plantar heel spur. A wound is suggested overlying the lateral malleol us. IMPRESSION: Intraoperative images from right foot debridement as above. Electronically signed by: Jaylan Freeman M.D. 07/08/2022 7:52 PM
[2022-07-08] MEDS ORDERED: ROCURONIUM BROMIDE 10 MG/ML 5 ML VIAL IV ONE (20:05)
[2022-07-08] MEDS ORDERED: PHENYLEPHRINE 100MCG/ML 5ML SYR ONE (20:05)
[2022-07-08] MEDS ORDERED: SUCCINYLCHOLINE 100MG/5ML SYR IV ONE (20:05)
[2022-07-08] MEDS ORDERED: PHARMACY GLYCEMIC MGMT CONSULT PRN (20:23)
[2022-07-08] MEDS ORDERED: PENDING 1/2NSS+20mEq KCL IVF SCH (20:23)
[2022-07-08] MEDS ORDERED: ONDANSETRON INJ 2 MG/ML 2 ML VIAL IV PRN (20:23)
[2022-07-08] MEDS ORDERED: INSULIN ASPART PER UNIT CHARGE SC SCH (20:23)
[2022-07-08] MEDS ORDERED: STAT IV Infusion **Titration per Protocol STA ×3 (20:23→21:30)
[2022-07-08] MEDS ORDERED: PENDING D5 1/2NS+20mEq KCL IVF SCH (20:23)
[2022-07-08] MEDS ORDERED: POLYETHYLENE (MIRALAX) 17 GM PACK PO PRN (20:23)
[2022-07-08] MEDS ORDERED: ACETAMINOPHEN 325 MG TAB PO PRN (20:23)
[2022-07-08] MEDS ORDERED: VANCOMYCIN CONSULT ACTIVE PRN (20:27)
[2022-07-08 20:28] LABS: iSTAT Art Bld Gas pCO2 Correct 45 mmHg (35-46); iSTAT Art Bld Gas pH Corrected 7.287 (7.35-7.45); iSTAT Arterial Blood Gas HCO3 22 meg/L (19-24); iSTAT Arterial Blood Gas pCO2 47 mmHg (35-46); iSTAT Arterial Blood Gas pH 7.28 (7.35-7.45); iSTAT Arterial Blood Gas pO2 167 mmHg (80-95); iSTAT Arterial Blood Gas pO2 C 163; iSTAT Carbon Dioxide 23 mmol/L (24-31); iSTAT FiO2 50 %; iSTAT Hematocrit 31 % (42-52); iSTAT Hemoglobin 10.5 g/dl (14.0-18.0); iSTAT Potassium 3.7 mmol/L (3.3-5.0); iSTAT Site Art Line; iSTAT Sodium 158 mmol/L (135-144)
[2022-07-08] MEDS ORDERED: fentaNYL BOLUS from BAG IV PRN (20:33)
--- NOTE | 2022-07-08 20:38 | XRay Report ---
SINGLE VIEW CHEST CLINICAL HISTORY: Respiratory failure. FINDINGS: An AP, portable, upright chest radiograph is compared to chest x-ray and chest CT performed earlier the same day 07/08/2022. An endotracheal tube has been placed. The tip projects 5.5 cm above the amber. A right internal jugular central venous catheter is been placed. The tip projects over th e right atrium. The cardiomediastinal silhouette is unremarkable noting atherosclerotic calcification of the thoracic aorta. Chronic interstitial thickening is similar to previous. No airspace consolida tion or large pleural effusion is identified. No pneumothorax is seen. The skeletal structures are os teopenic. The bony thorax is grossly intact. IMPRESSION: 1. An endotracheal tube and a right internal jugular central venous catheter have been placed as abov e. No pneumothorax is seen post procedure. 2. The lungs are clear. ACT 112: Negative or not required by law. Electronically signed by: Jaylan Freeman M.D. 07/08/2022 8:37 PM
[2022-07-08] MEDS ORDERED: fentaNYL citrate 2,500 MCG/250 ML BAG IV ONE (20:39)
[2022-07-08] MEDS ORDERED: fentaNYL citrate 2,500 MCG/250 ML BAG IV SCH (20:45)
--- NOTE | 2022-07-08 21:04 | Operative Report ---
Post Operative Report Pre & Post Diagnosis Operation Date: 07/08/22 12:30 Pre-Op Diagnosis: gas gangrene, sepsis,diabetic foot ulcer,osteomylitis,necratizing fascitis Post-Op Diagnosis: gas gangrene, sepsis,diabetic foot ulcer,osteomylitis,necratizing fascitis I identified the patient and participated in the time-out.: Yes Procedure Operation Date: 07/08/22 12:30 Actual Procedures p Lisfrank amputation, extensive, agressive debridement and exploration right foot(Right) - Gianluca Jackson DPM, MS Surgeon Gianluca Jackson DPM, MS [employer] Underwriter None Estimated Blood Loss 5 Findings Consistent with Post-Op Diagnosis Findings consistent with pre and post operative diagnosis Specimens 1.) Deep Cultures - Micro 2.) Right forefoot - Pathology 3) Medial cuneiform bone right foot - Micro Description of Procedure History of present illness: Patient is a diabetic, 61 year old male who is seen for treatmentof right diabetic foot ulcers, gas gangrene, necrotizing fascitis Right foot. Patient presented to the [facility] ED earlier today and is brought immediately to [facility] OR for aggressive debridement and exploration. He is seen for operative care including removal of non viable bone and soft tissue to right foot.Patient is unresponsive at this time. His sister in law is present and is able to consent for procedure. She understands patient may ultimately loose right limb. At this time our goal is attempt to control infection. All questions were answered. Preoperative diagnosis: 1.) Diabetic ulcers right foot 2.) Necrotizing fasciitis right foot 3.) Osteomyelitis Right foot 4.) Gas Gangrene right foot Postoperative diagnosis: same Name of operation: 1.) Aggressive wound debridement and exploration of right foot and ankle 2.) Lisfranc amputation of right foot 3.)Incision and drainage of right foot and ankle Surgeon Dr. Jackson Commercial [employer] Underwriter: None Anesthesia: Monitored anesthesia care Hemostasis: pneumatic calf tourniquet as needed Estimated blood loss: minimal Procedure in detail: Under mild sedation the patient was brought in the operating room and placed on the operating table in supine position. Following IV sedation the right lower extremity was prepped scrubbed and draped in usual aseptic manner. There was considerable dirt and debris of right lower extremity. Fecal matter was observed on right foot, ankle, an in wounds. At this time attention a thorough evaluation of the right foot was done in detail. The foot was emanating large amounts of purulent drainage from multiple wounds. Due to the extent of non viable tissue the decision was made to complete a Lisfranc amputation of the right foot. Utilizing a sharp, sterile, #15 blade and incision was created circumambulating the tarsal metatarsal joints. The incision was depended disarticulating at the tarsal metatarsal joints. Copious amounts of purulent exudate was released emanating from the dorsal extensor tendon sheaths, the peroneal tendon sheath, and the posterior tibial tendon flexor tendons. The right forefoot was excised en toto and placed on the back table. The foot was labeled and placed in formalin and sent to pathology. Deep cultures were obtained. The medial cuneiform was noted to be necrotic and bone was obtained with a rongeur. The medial cuneiform bone was placed on the back table. This bone was labeled and sent to microbiology. At this time the dorsal extensor tendon sheaths, the peroneal tendon sheath, and the posterior tibial tendon flexor tendon sheaths were opened into the level of the ankle. Attention was then directed to the right foot lateral and medial diabetic wounds. Considerable necrotic tissue is noted. Wounds measure approximately roughly 6 cm x 6 cm x 3cm medially and laterally. Wound base shows exposed bone, muscle and tendon. Necrotic or devitalized tissue is estimated to be present in approximately 80% of the ulcer bed. I debrided the wounds sharply with a sterile #15 blade and necrotic tissue was excised down to and including bone, muscle, and tendon. 3 L of lactated Ringer was then irrigated with low flow into the wound. Further nonviable soft tissue was excised as needed sharply. The wounds were covered with 4x4 gauze, ABD, Kerlix, Zaid wrap. At this time due to the extent of wounds it is unlikely Patient's right foot remains salvageable. We will continue to monitor for further demarcation. Patient was transferred to recovery room vital signs stable. Following a period of postoperative monitoring the patient will be admitted to floor . I attest to the content of the Intraoperative Record and any orders documented therein. Any exceptions are noted below.
[2022-07-08 21:07] LABS: Hematocrit (blood only) 31.9 % (42.0-52.0); Hemoglobin 10.1 g/dl (14.0-18.0); Mean Corpuscular Hemoglobin 27.5 pg (25.0-34.0); Mean Corpuscular Hgb Conc 31.7 g/dL (32.0-36.0); Mean Corpuscular Volume 86.9 fL (80.0-100.0); Mean Platelet Volume 10.2 fL (9.4-12.4); Platelet Count 350 K/uL (130-400); RDW Coefficient of Variation 15.1 % (11.5-14.5); RDW Standard Deviation 48.3 fL (36.4-46.3); Red Blood Count 3.67 M/uL (4.70-6.10); White Blood Count 27.44 K/ul (4.8-10.8)
[2022-07-08 21:13] LABS: Albumin Globulin Ratio 0.6 (0.9-2); Albumin Level 2.7 gm/dl (3.4-5.0); BUN Creatinine Ratio 45.7 (10-20); Bilirubin,Total 0.7 mg/dl (0.2-1.0); Calcium 9.4 mg/dl (8.5-10.1); Creatinine Clr Calc Pharmacy 63.3 ml/min; Est GFR (African American) 64.4 ml/min; Est GFR (Non-African American) 55.6 ml/min; Globulin 4.4 gm/dl (2.5-4.0); Potassium 3.6 mmol/L (3.5-5.1); Total Protein 7.1 gm/dl (6.0-8.3)
[2022-07-08 21:15] LABS: Albumin Level 2.6 gm/dl (3.4-5.0); Bilirubin Direct 0.1 mg/dl (0-0.2); Bilirubin,Total 0.7 mg/dl (0.2-1.0)
--- NOTE | 2022-07-08 21:15 | Anesthesiology Progress Note ---
Date of Service July 08, 2022 Anesthesia Post Procedure Vital Signs Vital Signs: Temp Pulse Pulse Resp BP BP BP 07/08/22 20:32 20 07/08/22 20:27 79 16 07/08/22 20:00 97.3 F L 83 20 171/63 H 150/59 H 07/08/22 19:55 97.3 F L 82 20 161/68 H 159/67 H 07/08/22 19:50 97.5 F L 85 17 156/67 H 152/63 H 07/08/22 19:45 97.3 F L 85 18 139/52 L 07/08/22 19:40 97.2 F L 78 20 158/64 H 07/08/22 17:00 98.1 F 78 24 96/52 L 07/08/22 16:42 76 18 98/49 L 07/08/22 16:30 98.1 F 07/08/22 16:17 98.1 F 77 33 H 93/48 L 07/08/22 15:47 75 23 98/53 L 07/08/22 15:36 75 18 88/51 L 07/08/22 15:14 79 16 102/55 L 07/08/22 15:03 79 07/08/22 14:05 96.3 F L 79 20 07/08/22 14:05 99/54 L 07/08/22 14:00 96.3 F L 79 21 07/08/22 13:55 96.1 F L 79 21 07/08/22 13:50 96.1 F L 78 22 07/08/22 13:45 95.9 F L 78 13 07/08/22 13:40 95.9 F L 80 24 07/08/22 13:35 95.7 F L 80 24 07/08/22 13:30 95.7 F L 80 17 07/08/22 13:25 95.5 F L 78 20 07/08/22 13:25 133/85 07/08/22 13:20 95.5 F L 77 23 07/08/22 13:20 144/72 H 07/08/22 13:15 95.5 F L 77 23 07/08/22 13:15 115/66 07/08/22 13:10 95.7 F L 75 23 07/08/22 13:10 115/70 07/08/22 13:05 95.7 F L 76 17 07/08/22 13:05 118/64 07/08/22 13:00 95.7 F L 77 18 07/08/22 13:00 127/74 07/08/22 12:55 95.7 F L 76 24 07/08/22 12:55 109/62 07/08/22 13:29 96.3 F L 07/08/22 12:50 95.7 F L 75 18 07/08/22 12:50 102/61 07/08/22 12:45 95.9 F L 76 22 07/08/22 12:45 113/51 L 07/08/22 12:40 95.9 F L 76 22 07/08/22 12:40 110/66 07/08/22 12:35 95.9 F L 77 29 H 07/08/22 12:34 95.9 F L 77 24 07/08/22 12:34 122/68 07/08/22 12:30 95.9 F L 81 23 07/08/22 12:25 95.9 F L 82 24 07/08/22 12:24 95.7 F L 83 12 07/08/22 12:00 83 07/08/22 12:00 99/66 L 07/08/22 11:55 83 17 07/08/22 11:55 141/60 H 07/08/22 11:50 83 19 07/08/22 11:50 133/69 07/08/22 11:49 132/81 07/08/22 11:49 84 20 07/08/22 11:45 96.4 F L 81 30 H 07/08/22 11:40 96.8 F L 81 27 H 07/08/22 11:40 112/56 L 07/08/22 11:35 96.8 F L 82 18 07/08/22 11:35 102/53 L 07/08/22 11:30 97.0 F L 88 14 07/08/22 11:25 97.0 F L 87 25 H 07/08/22 11:21 95.7 F L 88 29 H 07/08/22 11:21 100/75 07/08/22 11:20 97.0 F L 88 25 H 07/08/22 11:15 95.2 F L 85 19 07/08/22 11:10 97.5 F L 83 20 07/08/22 11:10 115/36 L 07/08/22 11:08 95/50 L 07/08/22 11:08 97.3 F L 83 18 07/08/22 11:05 84 20 07/08/22 11:01 84 18 07/08/22 11:01 91/56 L 07/08/22 11:00 86 20 07/08/22 10:55 85 18 07/08/22 10:51 84 18 07/08/22 10:57 95.9 F L 07/08/22 10:57 07/08/22 11:13 86 07/08/22 10:38 96.8 F L 34 H Pulse Ox O2 Del Method FiO2 07/08/22 20:32 40 07/08/22 20:27 99 50 07/08/22 20:00 99 Mechanical Vent 60 07/08/22 19:55 99 Mechanical Vent 60 07/08/22 19:50 99 Mechanical Vent 60 07/08/22 19:45 98 Mechanical Vent 60 07/08/22 19:40 98 Mechanical Vent 60 07/08/22 17:00 94 Room Air 07/08/22 16:42 98 Room Air 07/08/22 16:30 07/08/22 16:17 98 Room Air 07/08/22 15:47 100 07/08/22 15:36 100 Room Air 07/08/22 15:14 100 Room Air 07/08/22 15:03 07/08/22 14:05 97 07/08/22 14:05 07/08/22 14:00 100 07/08/22 13:55 99 07/08/22 13:50 98 07/08/22 13:45 100 07/08/22 13:40 96 07/08/22 13:35 100 07/08/22 13:30 100 07/08/22 13:25 99 07/08/22 13:25 07/08/22 13:20 100 07/08/22 13:20 07/08/22 13:15 100 07/08/22 13:15 07/08/22 13:10 100 07/08/22 13:10 07/08/22 13:05 100 07/08/22 13:05 07/08/22 13:00 100 07/08/22 13:00 07/08/22 12:55 98 07/08/22 12:55 07/08/22 13:29 07/08/22 12:50 100 07/08/22 12:50 07/08/22 12:45 98 07/08/22 12:45 07/08/22 12:40 98 07/08/22 12:40 07/08/22 12:35 07/08/22 12:34 07/08/22 12:34 07/08/22 12:30 07/08/22 12:25 07/08/22 12:24 07/08/22 12:00 100 07/08/22 12:00 07/08/22 11:55 100 07/08/22 11:55 07/08/22 11:50 100 07/08/22 11:50 07/08/22 11:49 07/08/22 11:49 100 07/08/22 11:45 100 07/08/22 11:40 100 07/08/22 11:40 07/08/22 11:35 97 07/08/22 11:35 07/08/22 11:30 07/08/22 11:25 07/08/22 11:21 100 07/08/22 11:21 07/08/22 11:20 100 07/08/22 11:15 100 07/08/22 11:10 07/08/22 11:10 07/08/22 11:08 07/08/22 11:08 07/08/22 11:05 07/08/22 11:01 100 07/08/22 11:01 07/08/22 11:00 100 07/08/22 10:55 100 07/08/22 10:51 100 Room Air 07/08/22 10:57 07/08/22 10:57 100 Room Air 07/08/22 11:13 07/08/22 10:38 Transfer of Care Handoff Completed per policy Notes Mental Status: see notes below Patient Amnestic to Procedure: Yes Nausea / Vomiting: adequately controlled Pain: adequately controlled Airway Patency, RR, SpO2: see Notes below BP & HR: stable & adequate Hydration State: stable & adequate Anesthetic Complications: no major complications apparent Notes: patient taken to unit on low dose norepi gtt, mechanically ventilated and sedated
--- NOTE | 2022-07-08 21:16 | Critical Care Consultation ---
Date of Consultation July 08, 2022 Assessment & Plan (1) Septic shock: Reason Critically Ill: 61-year-old male presents to the ICU with septic shock secondary to necrotizing fasciitis of the right foot, s/p partial amputation of the right foot, now mechanically ventilated and requiring vasopressor support. Neuro - Metabolic encephalopathypatient presented obtunded in the emergency department and was intubated. CT head and CT chest unremarkable. -Intubated to secure airway prior to surgery. Suspect this is likely due to septic shock. -History of CVA. Holding Plavix for now following surgery -Sedation: Fentanyl drip, Versed IV push as needed Cardiac - Shocksecondary to septic shock. See ID treatment below -Continue Levophed drip maintain MAP greater than 65. Wean as tolerated -Random cortisol pending -Echo pending -Continue with IV fluid resuscitation -Mild elevated troponin likely demand ischemia, now downtrending -Continuous monitoring on telemetry Respiratory - Mechanically ventilatedintubated prior to surgery. No significant hypoxia and will likely undergo SBT once stable. -Follow-up ABG and chest x-ray -Continuous monitoring pulse ox GI - N.p.o. Famotidine RENAL/LYTES - AKIcreatinine 1.6 baseline of 1. Likely ATN in the setting of septic shock versus DKA -Continue to maintain maps greater than 65 -Continue with IV fluid resuscitation -Avoid nephrotoxins and renally adjust medication -Monitor routine BMPs and replete electrolytes as indicated Lactic acidosisimproved - Foleystrict I's and O's ENDO - DKApatient type II diabetic now presents with hyperglycemia and positive ketones in urinalysis, with mixed metabolic acidosis in the setting of sepsis -Continue with DKA protocol and fluid resuscitation with insulin drip -Acidosis appears to be improving HEME - H&H stable, monitor routine CBC ID - Septic shockmost likely secondary to necrotizing fasciitis/osteomyelitis of the right foot however cannot rule out other sources as patient also has UTI and periapical abscess on CT -Oromaxillofacial surgery consulted for periapical abscess. Follow-up read -Podiatry consulted for necrotizing fasciitis/osteomyelitis. Status post right partial foot amputation with debridement -Concerned the patient may need BKA if clinically worsens -Follow-up blood cultures, and urine culture. Patient does have history of MRSA infection of the right lower extremity -Continue broad-spectrum antibiotics Zosyn, vancomycin, clindamycin LINES/IV ACCESS - Right IJ central line, arterial line DVT PROPHYLAXIS - SCDs, hold anticoagulation following surgery I have personally spent 60 minutes of critical care time in the direct managemen t of this patient. This is a life/limb threatening event. This includes time spent evaluating patient, direct bedside care, chart review, placing orders, interpretation of diagnostic studies, discussion with consultants, patient, and family members, as well as other required patient management activities. This time is exclusive of all separately billable procedures, and teaching time and separate from and in addition to any other critical care service time. Thank you for allowing us to participate in the care of this patient. Please refer to my attending physician's documentation for any further recommendations. (2) DKA (diabetic ketoacidosis): (3) High anion gap metabolic acidosis: (4) Metabolic encephalopathy: (5) KRYSTINA (acute kidney injury): (6) Urinary tract infection: (7) Necrotizing fasciitis: (8) Surgical wound, non healing: (9) HTN (hypertension): (10) Diabetic foot ulcer associated with type 2 diabetes mellitus: (11) Peripheral arterial disease: (12) Diabetic foot infection: (13) Stroke: (14) GERD (gastroesophageal reflux disease): (15) Dyslipidemia: (16) Obesity: (17) On mechanically assisted ventilation: Supervising Physician Co-Signing Physician Notes Patient seen and examined. EMR reviewed. Discussed with critical care MARTY and agree with assessment plan as noted. Please refer to my documentation from 07/09/2022 for additional details. History of Present Illness Attending Physician: Kris Dai MD History of Present Illness Patient is a 61-year-old male with past medical history of uncontrolled diabetes, HLD, HTN, history of CVA, BPH, chronic diabetic wound of the right lower extremity, and osteomyelitis. Patient normally follows outpatient with podiatry and wound clinic. He had an admission for osteomyelitis in which she w ent amputation of the fourth and fifth toes months ago. He has a history of noncompliance and has been not agreeable to treatment for debridement of his of recent. Today the patient presented to the emergency department after being noted to be confused and less responsive yesterday. Patient was noted to be covered in feces and in the obtunded state on arrival. CT of the right lower extremity s howed evidence of gas in the right foot and ankle consistent with necrotizing fasciitis, and superficial and deep soft tissue edema seen throughout the right lower extremity without organized fluid collection, and evidence of osteomyelitis at the base of the first metatarsals. He was noted to be hypotensive and had elevated lactate, Pro-Chris, and WBC. He received vancomycin, cefepime and clindamycin and podiatry was consulted. Patient underwent debridement and partial amputation of the right foot. He was intubated prior to surgery. Patient now presents to the ICU postop, mechanically ventilated and still requiring vasopressor support. Allergies Allergy/AdvReac Type Severity Reaction Status Date / Time aloe vera Allergy Unknown Unknown Verified 07/08/22 11:58 Sulfa (Sulfonamide AdvReac Mild Nausea Verified 07/08/22 11:58 Antibiotics) Home Medications Medication Instructions Recorded Confirmed Type ammonium lactate 12 % lotion 1 applic topical UD PRN dry skin 02/17/22 07/08/22 History on legs clopidogrel 75 mg tablet 75 mg PO QAM 02/17/22 07/08/22 History dutasteride 0.5 mg capsule 0.5 mg PO QAM 02/17/22 07/08/22 History empagliflozin 10 mg tablet 10 mg PO QAM 02/17/22 07/08/22 History (Jardiance) metoprolol tartrate 25 mg tablet 25 mg PO QAM 02/17/22 07/08/22 History olmesartan 40 mg tablet 40 mg PO QAM 02/17/22 07/08/22 History pantoprazole 40 mg tablet,delayed 40 mg PO QAM 02/17/22 07/08/22 History release rosuvastatin 10 mg tablet 10 mg PO QPM 02/17/22 07/08/22 History amlodipine 5 mg tablet 5 mg PO DAILY 06/23/22 07/08/22 History folic acid 1 mg tablet 0 mg PO DAILY 07/08/22 07/08/22 History vitamin B complex 1 tab PO DAILY 07/08/22 07/08/22 History Patient History Medical History Amputation toe Right 4th Toe- 02/27/22 BPH (benign prostatic hyperplasia) Cellulitis of toe of right foot Diabetes mellitus Diabetic ulcer of right fifth toe Dyslipidemia Essential hypertension Former smoker GERD (gastroesophageal reflux disease) Hyponatremia Mixed hyperlipidemia Neuropathy Obesity Osteomyelitis of right foot Peripheral arterial disease S/P arteriogram of extremity Right leg, lithotripsy of proximal popliteal artery, mechanical closure of left femoral artery, 02/25/22 Stroke July 2020 Right upper extremity weakness Surgical complication involving skin Application of [place]in Graft to Right Forefoot-03/28/22 Surgical History History of incision and drainage partial excision of fifth ray of right foot, delayed primary closure 02/18/22 S/P debridement Right foot debridement, wound vac application 02/21/22 Family History Other Diabetes Social History Smoking Status: Former smoker Do You Dip or Chew Tobacco: No; Hx Alcohol Use: No Hx Substance Use: No Preferred Language: [place] Communication Ability: Effective Chargeback Specialist Required: No Beliefs That Will Affect Care: None marital status: Single Current Living Situation: Family Current Living Situation Comment: nephew living with patient How many Children do You have: 9 Feels Safe at Home: Yes Safety Concerns: Feels Safe At This Time Assistive Devices: Glasses Review of Systems Review of Systems: Unobtainable due to cognitive status and Unobtainable due to endotracheal tube Physical Exam Constitutional: WD/WN, vitals as above + obese and + mechanically ventilated Eyes: PERRL, conjunctivae normal, anicteric sclerae ENMT: external ear and nose normal, oropharynx normal Neck: trachea midline, no thyromegaly Respiratory: symmetric chest movement Auscultation: lungs clear to auscultation bilaterally Cardiovascular: RRR, no murmur, no edema Heart Sounds: normal S1 and normal S2; no murmur Extremities: no edema Gastrointestinal (Abdomen): normal bowel sounds, soft, nontender, no hepatosplenomegaly Musculoskeletal: partial amputation of the right foot. No other musculoskeletal deformities Skin: no rashes, warm and dry Neurologic: Unable to assess due to sedation Psychiatric: Unable to assess due to sedation Genitourinary: Nicole, urine yellow and clear Results & Data Results & Data ([facility]) Vital Signs (Past 12 Hours) Vital Signs Temp Pulse Pulse Resp BP BP BP 07/08/22 20:32 20 07/08/22 20:27 79 16 07/08/22 20:00 36.3 C L 83 20 171/63 H 150/59 H 07/08/22 19:55 36.3 C L 82 20 161/68 H 159/67 H 07/08/22 19:50 36.4 C L 85 17 156/67 H 152/63 H 07/08/22 19:45 36.3 C L 85 18 139/52 L 07/08/22 19:40 36.2 C L 78 20 158/64 H 07/08/22 17:00 36.7 C 78 24 96/52 L 07/08/22 16:42 76 18 98/49 L 07/08/22 16:30 36.7 C 07/08/22 16:17 36.7 C 77 33 H 93/48 L 07/08/22 15:47 75 23 98/53 L 07/08/22 15:36 75 18 88/51 L 07/08/22 15:14 79 16 102/55 L 07/08/22 15:03 79 07/08/22 14:05 35.7 C L 79 20 07/08/22 14:05 99/54 L 07/08/22 14:00 35.7 C L 79 21 07/08/22 13:55 35.6 C L 79 21 07/08/22 13:50 35.6 C L 78 22 07/08/22 13:45 35.5 C L 78 13 07/08/22 13:40 35.5 C L 80 24 07/08/22 13:35 35.4 C L 80 24 07/08/22 13:30 35.4 C L 80 17 07/08/22 13:25 35.3 C L 78 20 07/08/22 13:25 133/85 07/08/22 13:20 35.3 C L 77 23 07/08/22 13:20 144/72 H 07/08/22 13:15 35.3 C L 77 23 07/08/22 13:15 115/66 07/08/22 13:10 35.4 C L 75 23 07/08/22 13:10 115/70 07/08/22 13:05 35.4 C L 76 17 07/08/22 13:05 118/64 07/08/22 13:00 35.4 C L 77 18 07/08/22 13:00 127/74 07/08/22 12:55 35.4 C L 76 24 07/08/22 12:55 109/62 07/08/22 13:29 35.7 C L 07/08/22 12:50 35.4 C L 75 18 07/08/22 12:50 102/61 07/08/22 12:45 35.5 C L 76 22 07/08/22 12:45 113/51 L 07/08/22 12:40 35.5 C L 76 22 07/08/22 12:40 110/66 07/08/22 12:35 35.5 C L 77 29 H 07/08/22 12:34 35.5 C L 77 24 07/08/22 12:34 122/68 07/08/22 12:30 35.5 C L 81 23 07/08/22 12:25 35.5 C L 82 24 07/08/22 12:24 35.4 C L 83 12 07/08/22 12:00 83 07/08/22 12:00 99/66 L 07/08/22 11:55 83 17 07/08/22 11:55 141/60 H 07/08/22 11:50 83 19 07/08/22 11:50 133/69 07/08/22 11:49 132/81 07/08/22 11:49 84 20 07/08/22 11:45 35.8 C L 81 30 H 07/08/22 11:40 36.0 C L 81 27 H 07/08/22 11:40 112/56 L 07/08/22 11:35 36.0 C L 82 18 07/08/22 11:35 102/53 L 07/08/22 11:30 36.1 C L 88 14 07/08/22 11:25 36.1 C L 87 25 H 07/08/22 11:21 35.4 C L 88 29 H 07/08/22 11:21 100/75 07/08/22 11:20 36.1 C L 88 25 H 07/08/22 11:15 35.1 C L 85 19 07/08/22 11:10 36.4 C L 83 20 07/08/22 11:10 115/36 L 07/08/22 11:08 95/50 L 07/08/22 11:08 36.3 C L 83 18 07/08/22 11:05 84 20 07/08/22 11:01 84 18 07/08/22 11:01 91/56 L 07/08/22 11:00 86 20 07/08/22 10:55 85 18 07/08/22 10:51 84 18 07/08/22 10:57 35.5 C L 07/08/22 10:57 07/08/22 11:13 86 07/08/22 10:38 36.0 C L 34 H Pulse Ox O2 Del Method FiO2 07/08/22 20:32 40 07/08/22 20:27 99 50 07/08/22 20:00 99 Mechanical Vent 60 07/08/22 19:55 99 Mechanical Vent 60 07/08/22 19:50 99 Mechanical Vent 60 07/08/22 19:45 98 Mechanical Vent 60 07/08/22 19:40 98 Mechanical Vent 60 07/08/22 17:00 94 Room Air 07/08/22 16:42 98 Room Air 07/08/22 16:30 07/08/22 16:17 98 Room Air 07/08/22 15:47 100 07/08/22 15:36 100 Room Air 07/08/22 15:14 100 Room Air 07/08/22 15:03 07/08/22 14:05 97 07/08/22 14:05 07/08/22 14:00 100 07/08/22 13:55 99 07/08/22 13:50 98 07/08/22 13:45 100 07/08/22 13:40 96 07/08/22 13:35 100 07/08/22 13:30 100 07/08/22 13:25 99 07/08/22 13:25 07/08/22 13:20 100 07/08/22 13:20 07/08/22 13:15 100 07/08/22 13:15 07/08/22 13:10 100 07/08/22 13:10 07/08/22 13:05 100 07/08/22 13:05 07/08/22 13:00 100 07/08/22 13:00 07/08/22 12:55 98 07/08/22 12:55 07/08/22 13:29 07/08/22 12:50 100 07/08/22 12:50 07/08/22 12:45 98 07/08/22 12:45 07/08/22 12:40 98 07/08/22 12:40 07/08/22 12:35 07/08/22 12:34 07/08/22 12:34 07/08/22 12:30 07/08/22 12:25 07/08/22 12:24 07/08/22 12:00 100 07/08/22 12:00 07/08/22 11:55 100 07/08/22 11:55 07/08/22 11:50 100 07/08/22 11:50 07/08/22 11:49 07/08/22 11:49 100 07/08/22 11:45 100 07/08/22 11:40 100 07/08/22 11:40 07/08/22 11:35 97 07/08/22 11:35 07/08/22 11:30 07/08/22 11:25 07/08/22 11:21 100 07/08/22 11:21 07/08/22 11:20 100 07/08/22 11:15 100 07/08/22 11:10 07/08/22 11:10 07/08/22 11:08 07/08/22 11:08 07/08/22 11:05 07/08/22 11:01 100 07/08/22 11:01 07/08/22 11:00 100 07/08/22 10:55 100 07/08/22 10:51 100 Room Air 07/08/22 10:57 07/08/22 10:57 100 Room Air 07/08/22 11:13 07/08/22 10:38 Coding Level of Care Code 62526 CRITICAL CARE 1ST 30-74M Diagnoses Septic shock A41.9; R65.21 DKA (diabetic ketoacidosis) E11.10 High anion gap metabolic acidosis E87.29 Metabolic encephalopathy G93.41 KRYSTINA (acute kidney injury) N17.9 Urinary tract infection N39.0 Necrotizing fasciitis M72.6 Surgical wound, non healing T81.89XA HTN (hypertension) I10 Diabetic foot ulcer associated with type 2 diabetes mellitus E11.621; L97.509 Peripheral arterial disease I73.9 Diabetic foot infection E11.628; L08.9 Stroke I63.9 GERD (gastroesophageal reflux disease) K21.9 Dyslipidemia E78.5 Obesity E66.9 On mechanically assisted ventilation Z99.11
[2022-07-08] MEDS ORDERED: VANCOMYCIN HCL 750 MG in SODIUM CHLORIDE 0.9% 250 ML IV SCH (21:30)
[2022-07-08] MEDS ORDERED: NOREPINEPHRINE/D5W 4 MG/250 ML PLCT IV SCH (21:30)
[2022-07-08 21:32] LABS: Basophils # (auto) 0.12 K/uL (0-0.2); Basophils % (auto) 0.4 %; Eosinophils # (auto) 0.03 K/uL (0-0.50); Eosinophils % (auto) 0.1 %; Immature Granulocytes # (auto) 0.91 K/uL (0.01-0.20); Immature Granulocytes % (auto) 3.3 %; Lymphocytes # (auto) 1.07 K/uL (1.2-3.4); Lymphocytes % (auto) 3.9 %; Monocytes # (auto) 1.08 K/uL (0.11-0.59); Monocytes % (auto) 3.9 %; Neutrophils # (auto) 24.23 K/uL (1.40-6.50); Neutrophils % (auto) 88.4 %; RBC Morphology Unremarkable
[2022-07-08] MEDS: MIDAZOLAM HCL 1 MG/ML 2ML VIAL IV PRN (22:25)
[2022-07-08] MEDS: D5W AND 1/2NSS + 20MEQ KCL 20 MEQ/1,000 ML BAG IV SCH (22:27)
[2022-07-08] MEDS: PIPERACILLIN/TAZOBACTAM 4.5 GM in DEXTROSE 5% 100 ML IV SCH (22:27)
[2022-07-08 23:46] LABS: BUN Creatinine Ratio 43.8 (10-20); Calcium 8.7 mg/dl (8.5-10.1); Creatinine Clr Calc Pharmacy 67.2 ml/min; Est GFR (African American) 69.2 ml/min; Est GFR (Non-African American) 59.7 ml/min; Magnesium 2.4 mg/dl (1.7-2.4); Phosphorus 4.4 mg/dl (2.5-4.9); Potassium 3.9 mmol/L (3.5-5.1)
[2022-07-09] MEDS: CLINDAMYCIN/D5W 900 MG/50 ML PREMIX BAG IV SCH ×2 (00:12→06:06)
[2022-07-09 00:38] LABS: Troponin I High Sensitivity 47.3 pg/ml (0-20)
[2022-07-09] MEDS: MIDAZOLAM HCL 1 MG/ML 2ML VIAL IV PRN ×2 (02:32→04:15)
[2022-07-09] MEDS: D5W AND 1/2NSS + 20MEQ KCL 20 MEQ/1,000 ML BAG IV SCH (02:32)
[2022-07-09 03:15] LABS: BUN Creatinine Ratio 41.8 (10-20); Calcium 8.5 mg/dl (8.5-10.1); Creatinine Clr Calc Pharmacy 71.6 ml/min; Est GFR (African American) 74.7 ml/min; Est GFR (Non-African American) 64.5 ml/min; Magnesium 2.3 mg/dl (1.7-2.4); Phosphorus 3.8 mg/dl (2.5-4.9); Potassium 4.2 mmol/L (3.5-5.1)
[2022-07-09] MEDS ORDERED: SODIUM CHLOR 0.45% + 20MEQ KCL 20 MEQ/1,000 ML BAG IV SCH (03:45)
[2022-07-09] MEDS ORDERED: PNEUMOCOCCAL Polysaccharide Vaccine 25mcg/0.5mL vial/Syr IM ONE (04:00)
[2022-07-09] MEDS ORDERED: Flu Vaccine (Fluarix) 0.5mL SYR (Standard Dose) IM ONE (04:00)
[2022-07-09] MEDS: PIPERACILLIN/TAZOBACTAM 4.5 GM in DEXTROSE 5% 100 ML IV SCH (05:24)
[2022-07-09 05:57] LABS: A calco-baum cmplx NotReported Not Detected (NotDetected); Bact fragilis Not Reported Not Detected (NotDetected); C auris Not Reported Not Detected (NotDetected); Calbicans Not Reported Not Detected (NotDetected); Candida glabrata Not Reported Not Detected (NotDetected); Candida krusei Not Reported Not Detected (NotDetected); Cneoformans/gatti Not Reported Not Detected (NotDetected); Cparapsilosis Not Reported Not Detected (NotDetected); Ctropicalis Not Reported Not Detected (NotDetected); E cloacae compx Not Reported Not Detected (NotDetected); Efaecalis Not Reported Not Detected (NotDetected); Efaecium Not Reported Not Detected (NotDetected); Enterobacterales Not Reported Not Detected (NotDetected); Escherichia coli Not Reported Not Detected (NotDetected); H influenzae Not Reported Not Detected (NotDetected); K aerogenes Not Reported Not Detected (NotDetected); Koxytoca Not Reported Not Detected (NotDetected); Kpneumoniae grp Not Reported Not Detected (NotDetected); Lmonocyt Not Reported Not Detected (NotDetected); N meningitidis Not Reported Not Detected (NotDetected); P aeruginosa Not Reported Not Detected (NotDetected); Proteus spp Not Reported Not Detected (NotDetected); Salmonella spp Not Reported Not Detected (NotDetected); Smarcescens Not Reported Not Detected (NotDetected); Staph lugdunensis Not Reported Not Detected (NotDetected); Staph spp. Not Reported Not Detected (NotDetected); Staphaureus Not Reported Not Detected (NotDetected); Staphepi Not Reported Not Detected (NotDetected); Stenmaltophilia Not Reported Not Detected (NotDetected); Strep agal(GrpB) Not Reported Not Detected (NotDetected); Strep pneum Not Reported Not Detected (NotDetected); Strep pyog (GrpA) Not Reported Not Detected (NotDetected); Strep spp Not Reported Not Detected (NotDetected)
[2022-07-09 06:13] LABS: Hematocrit (blood only) 30.7 % (42.0-52.0); Hemoglobin 9.8 g/dl (14.0-18.0); Mean Corpuscular Hemoglobin 27.3 pg (25.0-34.0); Mean Corpuscular Hgb Conc 31.9 g/dL (32.0-36.0); Mean Corpuscular Volume 85.5 fL (80.0-100.0); Mean Platelet Volume 10.4 fL (9.4-12.4); Platelet Count 297 K/uL (130-400); RDW Coefficient of Variation 15.2 % (11.5-14.5); RDW Standard Deviation 47.2 fL (36.4-46.3); Red Blood Count 3.59 M/uL (4.70-6.10); White Blood Count 28.31 K/ul (4.8-10.8)
[2022-07-09 06:30] LABS: Basophils # (auto) 0.08 K/uL (0-0.2); Basophils % (auto) 0.3 %; Eosinophils # (auto) 0.01 K/uL (0-0.50); Immature Granulocytes # (auto) 0.82 K/uL (0.01-0.20); Immature Granulocytes % (auto) 2.9 %; Lymphocytes # (auto) 1.07 K/uL (1.2-3.4); Lymphocytes % (auto) 3.8 %; Monocytes # (auto) 0.99 K/uL (0.11-0.59); Monocytes % (auto) 3.5 %; Neutrophils # (auto) 25.34 K/uL (1.40-6.50); Neutrophils % (auto) 89.5 %; Target Cells 1+
[2022-07-09 06:42] LABS: Albumin Globulin Ratio 0.6 (0.9-2); Albumin Level 2.5 gm/dl (3.4-5.0); BUN Creatinine Ratio 39.8 (10-20); Bilirubin Direct 0.1 mg/dl (0-0.2); Bilirubin,Total 0.6 mg/dl (0.2-1.0); Calcium 8.6 mg/dl (8.5-10.1); Creatinine Clr Calc Pharmacy 83.9 ml/min; Est GFR (Non-African American) 70.8 ml/min; Magnesium 2.3 mg/dl (1.7-2.4); Total Protein 6.5 gm/dl (6.0-8.3)
[2022-07-09] MEDS: INSULIN ASPART PER UNIT CHARGE SC SCH (07:35)
[2022-07-09] MEDS: SODIUM CHLOR 0.45% + 20MEQ KCL 20 MEQ/1,000 ML BAG IV SCH (07:36)
--- NOTE | 2022-07-09 08:06 | Critical Care Progress Note ---
Date of Service July 09, 2022 Assessment & Plan (1) Necrotizing fasciitis: (2) Bacteremia: (3) Metabolic encephalopathy: (4) Septic shock: Plan Reason Critically Ill: 61-year-old male with a significant history of diabetes, hypertension, peripheral arterial disease, and nonhealing diabetic foot ulcer who was admitted overnight with necrotizing fasciitis of the RIGHT foot. Patient underwent surgical debridement and Lisfranc amputation of the RIGHT foot. Unfortunately, there is question of lack of source control given the likely extension of air noted on CT of the foot extending near above the ankle. On exam this morning, the patient is noted to have edema and erythema extending to the mid calf. He remains intubated and sedated. He is on minimal pressor requirement likely related to sedation. He has grown out gram-positive cocci in chains. He remains on Zosyn, clindamycin, and vancomycin. His IV fluids have been changed to half NS with 20 of K. He is sedated on propofol and fentanyl. Unfortunately, given the patient's significant acuity of illness and concerns for lack of source control and the patient with profound necrotizing fasciitis of the RIGHT foot, the patient likely warrants a more extensive debridement. 0730: Spoke with Dr. Ocampo. He agrees the patient likely requires further debridement versus amputation. He is unavailable for surgical intervention at this time. 0735: Reached out to on-call orthopedic surgeon. No answer. 0737: Contacted patient's [id number], Elvira Rojas ([phone]). Discussed case and concerns for likely need for continued debridement versus amputation of the RIGHT lower extremity. She acknowledges understanding. Additionally, we discussed the possible need for transfer to tertiary care facility for continued management. She is comfortable with transport and requests either [facility] or [facility]. 0748: Reached out to oncoming orthopedic surgeon, Dr. Garcia. Left message. 0805: Spoke with Dr. Garcia. He recommends given the extent of infection and acute illness, the patient would likely be better served in a tertiary care facility. He recommends transfer. 0825: Spoke with Dr. Ceballos at [facility] [place]. Agrees that patient warrants transfer to higher level of care, however they have absolutely no beds at this time. They recommend reaching out to other tertiary care facilities. 0845: Spoke with Dr. Moore at [facility] [place]. He excepted the patient in transfer to [facility]'s ICU. Unfortunately, [facility] air transport are both out of service at this time. Recommend we reach out to [facility] for transport. 0904: Spoke with [facility] to arrange transport. They will coordinate with [facility]. 0914: Provided update to Elvira (ELVIS). She is agreeable for transport to [facility]. She understands that this may result in amputation. 0925: Received bed assignment from [facility]. I have personally spent 120 minutes of critical care time in the direct management of this patient. This is a life/limb threatening event. This includes time spent evaluating patient, direct bedside care, chart review, placing ord ers, interpretation of diagnostic studies, discussion with consultants, patient, and family members, as well as other required patient management activities. This time is exclusive of all separately billable procedures, and teaching time and separate from and in addition to any other critical care service time. Admission and Anticipated Discharge Date Admission Date: July 08, 2022 Supervising Physician Co-Signing Physician Notes Patient seen and examined. EMR reviewed. Discussed with overnight critical care MARTY as well as daytime MARTY and with bedside critical care nurse. Patient remains critically ill at this point in time. He remains mildly septic. He has had an antibiotic with operative debridement. The gas on the CT scan extended above the ankle and likely extended into the lower extremity/calf. He is only had a limited amputation and according to the operative notes, there was devitalized tissue left behind. Patient requires additional surgical debridement which is not available at our institution. Orthopedics and vascular surgery are unable to manage this patient so he has been accepted to [facility] for definitive surgical treatment of a deep necrotizing soft tissue infection. Continue Zosyn vancomycin and clindamycin for now. Blood cultures are growing strep to be speciated. Highly likely that this represents a polymicrobial infection. ID consultation should be obtained at the tertiary facility to guide additional antimicrobial therapy. We will transition fentanyl to pushes as needed and continue propofol for sedation. Wean pressors as tolerated. Continue to follow kidney function and t rend white blood cell count. Will need to assess for enteral nutrition. The patient's echocardiogram does demonstrate Takotsubo pattern. No indication for systemic anticoagulation currently. Patient's overall prognosis is guarded. Given his poor functional state and unwillingness to comply with recommended medical therapy, it is highly likely that patient may have recurrent issues in the future. No family available. Subjective Patient was seen and evaluated at bedside this morning. Admission notes, surgical notes, morning labs, and overnight vital signs were reviewed. Patient remains intubated and sedated. Review of Systems Review of Systems: Unable to obtain secondary to current state of intubation with sedation. Physical Exam Physical Exam: VITAL SIGNS - Vital signs and nursing notes were reviewed. GENERAL - 61-year-old male appearing her stated age who is intubated and sedated. HEAD - NC/AT. NOSE - Midline and without cyanosis. MOUTH/OROPHARYNX - ETT in place. NECK - No nuchal rigidity. LUNGS - Normal vesicular breath sounds CTA B/L. No wheezes, rales, or rhonchi appreciated. CARDIAC - RRR with S1/S2. No murmur, rubs, or gallops appreciated. ABDOMEN - Abdominal contour obese without pulsations or visible masses. BS normoactive all four quadrants. EXTREMITIES - RIGHT foot dressing is foul smelling and seeping serous fluid. Th ere is erythema and edema extending up the leg to the mid-calf. NEUROLOGIC - No focal neurological deficits noted. Limited 2/2 intubation/sedation. Results & Data Results & Data ([facility]) Vital Signs (Past 12 Hours) Vital Signs Temp Pulse Resp BP Pulse Ox Pulse Ox O2 Del Method 07/09/22 07:09 75 21 98 07/09/22 06:00 37.9 C H 75 21 117/57 L 97 Mechanical Vent 07/09/22 05:30 38.0 C H 74 20 109/55 L 97 Mechanical Vent 07/09/22 05:00 38.0 C H 73 21 117/59 L 97 Mechanical Vent 07/09/22 04:30 38.0 C H 74 20 98/63 L 97 Mechanical Vent 07/09/22 04:00 38.0 C H 88 26 H 183/74 H 98 Mechanical Vent 07/09/22 03:30 37.9 C H 72 20 97 Mechanical Vent 07/09/22 04:00 07/09/22 03:30 75 21 97 07/09/22 03:00 37.8 C H 73 20 114/59 L 97 Mechanical Vent 07/09/22 02:30 37.8 C H 86 22 98 Mechanical Vent 07/09/22 02:00 37.6 C H 74 21 126/65 97 Mechanical Vent 07/09/22 01:30 37.5 C 73 21 97 Mechanical Vent 07/09/22 01:00 37.3 C 73 20 141/62 H 97 Mechanical Vent 07/09/22 00:30 37.1 C 73 21 97 Mechanical Vent 07/09/22 00:00 37.0 C 70 20 134/60 97 Mechanical Vent 07/08/22 23:30 36.9 C 69 21 146/63 H 96 Mechanical Vent 07/09/22 00:00 07/08/22 23:17 22 07/08/22 23:00 36.8 C 73 20 144/57 H 96 Mechanical Vent 07/08/22 22:30 36.6 C 69 20 139/63 98 Mechanical Vent 07/08/22 22:00 36.4 C L 69 20 139/64 97 Mechanical Vent 07/08/22 21:30 36.2 C L 74 22 153/65 H 98 Mechanical Vent 07/08/22 21:00 36.1 C L 70 20 166/76 H 99 Mechanical Vent 07/08/22 20:45 36.1 C L 72 22 122/50 L 96 Mechanical Vent 07/08/22 20:30 36.1 C L 81 23 145/54 H 96 Mechanical Vent 07/08/22 20:15 36.1 C L 85 20 149/55 H 98 Mechanical Vent 07/08/22 20:23 Mechanical Vent 07/08/22 20:23 07/08/22 20:23 98 07/08/22 20:32 20 07/08/22 20:27 79 16 99 O2 Del Method FiO2 07/09/22 07:09 30 07/09/22 06:00 30 07/09/22 05:30 30 07/09/22 05:00 30 07/09/22 04:30 30 07/09/22 04:00 30 07/09/22 03:30 30 07/09/22 04:00 30 07/09/22 03:30 30 07/09/22 03:00 30 07/09/22 02:30 30 07/09/22 02:00 30 07/09/22 01:30 30 07/09/22 01:00 30 07/09/22 00:30 30 07/09/22 00:00 30 07/08/22 23:30 30 07/09/22 00:00 40 07/08/22 23:17 30 07/08/22 23:00 40 07/08/22 22:30 40 07/08/22 22:00 40 07/08/22 21:30 40 07/08/22 21:00 40 07/08/22 20:45 40 07/08/22 20:30 40 07/08/22 20:15 40 07/08/22 20:23 40 07/08/22 20:23 40 07/08/22 20:23 Mechanical Vent 07/08/22 20:32 40 07/08/22 20:27 50 Coding Level of Care Code 14000 CRITICAL CARE 1ST 30-74M Diagnoses Necrotizing fasciitis M72.6 Bacteremia R78.81 Metabolic encephalopathy G93.41 Septic shock A41.9; R65.21 Time Spent (min) 120
[2022-07-09] MEDS ORDERED: PROPOFOL IV EMULSION 10 MG/ML 100 ML VIAL IV ONE (08:10)
[2022-07-09] MEDS ORDERED: PROPOFOL BOLUS FROM BAG IV PRN (08:25)
[2022-07-09] MEDS ORDERED: STAT IV Infusion **Titration per Protocol STA (08:25)
--- NOTE | 2022-07-09 08:25 | Hospitalist Progress Note ---
Date of Service July 09, 2022 Assessment & Plan (1) Metabolic encephalopathy: (2) Acute respiratory failure: (3) Septic shock: (4) On mechanically assisted ventilation: (5) DKA (diabetic ketoacidosis): (6) Hypernatremia: (7) Osteomyelitis of right foot: (8) Diabetic foot infection: (9) Necrotizing fasciitis: (10) UTI (urinary tract infection): (11) Periapical abscess: (12) Acute renal failure: (13) Anemia: (14) Neuropathy: (15) Post-operative state: Admission and Anticipated Discharge Date Admission Date: July 08, 2022 Subjective 61 yo uncontrolled diabetic with a chronic diabetic right foot wound with a history of osteomyelitis presents with acute metabolic encephalopathy in the setting of severe sepsis with shock. He remains sedated and intubated in the ICU requiring pressor support. Review of Systems Review of Systems: ROS not obtained as patient is sedated and intubated Physical Exam Physical Exam: CONSTITUTIONAL: WNWD, vitals as above, generally well-appearing EYES: EOMI bilaterally, PERRL, normal conjuctivae, no scleral icterus, no fundoscopic abnormality ENT: external ear and nose normal, oropharynx clear, no TM abnormality, no maxillary or ethmoid sinus tenderness NECK: trachea midline, no lymphadenopathy, normal thyroid RESPIRATORY: clear to auscultation bilaterally, no crackles, rales or wheezes, normal respiratory effort CARDIOVASCULAR: regular rate and rhythm, S1 and 2 heard without murmurs, gallops or rubs, no JVD, no peripheral edema, no carotid bruits CHEST: inspection of chest was normal (+pacemaker, +port) GASTROINTESTINAL: normal bowel sounds, soft, nontender, no hepatomegaly, no guarding MUSCULOSKELETAL: strength 5/5 throughout, head is normocephalic and atraumatic, neck supple, normal palpation of chest wall without tenderness SKIN: warm and dry, no rashes NEUROLOGIC: patellar DTRs 2+ bilat. PERRL, EOMI, no facial palsy, no dysarthria. Touch, pain and proprioception normal. CN 2-12 grossly intact, no sensory deficit, normal cognition, normal speech, no tremor PSYCHIATRIC: alert cooperative and oriented to person, place and time. Euthymic mood, makes good eye contact, language grossly intact, recent and remote memory grossly intact. LYMPHATIC: no LAD Results & Data Results & Data ([facility]) Vital Signs (Past 12 Hours) Vital Signs Temp Pulse Resp BP Pulse Ox Pulse Ox O2 Del Method 07/09/22 07:09 75 21 98 07/09/22 06:00 37.9 C H 75 21 117/57 L 97 Mechanical Vent 07/09/22 05:30 38.0 C H 74 20 109/55 L 97 Mechanical Vent 07/09/22 05:00 38.0 C H 73 21 117/59 L 97 Mechanical Vent 07/09/22 04:30 38.0 C H 74 20 98/63 L 97 Mechanical Vent 07/09/22 04:00 38.0 C H 88 26 H 183/74 H 98 Mechanical Vent 07/09/22 03:30 37.9 C H 72 20 97 Mechanical Vent 07/09/22 04:00 07/09/22 03:30 75 21 97 07/09/22 03:00 37.8 C H 73 20 114/59 L 97 Mechanical Vent 07/09/22 02:30 37.8 C H 86 22 98 Mechanical Vent 07/09/22 02:00 37.6 C H 74 21 126/65 97 Mechanical Vent 07/09/22 01:30 37.5 C 73 21 97 Mechanical Vent 07/09/22 01:00 37.3 C 73 20 141/62 H 97 Mechanical Vent 07/09/22 00:30 37.1 C 73 21 97 Mechanical Vent 07/09/22 00:00 37.0 C 70 20 134/60 97 Mechanical Vent 07/08/22 23:30 36.9 C 69 21 146/63 H 96 Mechanical Vent 07/09/22 00:00 07/08/22 23:17 22 07/08/22 23:00 36.8 C 73 20 144/57 H 96 Mechanical Vent 07/08/22 22:30 36.6 C 69 20 139/63 98 Mechanical Vent 07/08/22 22:00 36.4 C L 69 20 139/64 97 Mechanical Vent 07/08/22 21:30 36.2 C L 74 22 153/65 H 98 Mechanical Vent 07/08/22 21:00 36.1 C L 70 20 166/76 H 99 Mechanical Vent 07/08/22 20:45 36.1 C L 72 22 122/50 L 96 Mechanical Vent 07/08/22 20:30 36.1 C L 81 23 145/54 H 96 Mechanical Vent 07/08/22 20:23 Mechanical Vent 07/08/22 20:23 07/08/22 20:23 98 07/08/22 20:32 20 07/08/22 20:27 79 16 99 O2 Del Method FiO2 07/09/22 07:09 30 07/09/22 06:00 30 07/09/22 05:30 30 07/09/22 05:00 30 07/09/22 04:30 30 07/09/22 04:00 30 07/09/22 03:30 30 07/09/22 04:00 30 07/09/22 03:30 30 07/09/22 03:00 30 07/09/22 02:30 30 07/09/22 02:00 30 07/09/22 01:30 30 07/09/22 01:00 30 07/09/22 00:30 30 07/09/22 00:00 30 07/08/22 23:30 30 07/09/22 00:00 40 07/08/22 23:17 30 07/08/22 23:00 40 07/08/22 22:30 40 07/08/22 22:00 40 07/08/22 21:30 40 07/08/22 21:00 40 07/08/22 20:45 40 07/08/22 20:30 40 07/08/22 20:23 40 07/08/22 20:23 40 07/08/22 20:23 Mechanical Vent 07/08/22 20:32 40 07/08/22 20:27 50 Laboratory Results Short CBC 07/08/22 07/08/22 07/08/22 Range/Units 11:05 12:01 20:43 WBC Cancelled 29.65 H 27.44 H Hgb Cancelled 12.0 L 10.1 L Hct Cancelled 39.8 L 31.9 L Plt Count Cancelled 375 350 07/09/22 Range/Units 05:50 WBC 28.31 H Hgb 9.8 L Hct 30.7 L Plt Count 297 BMP 07/08/22 07/08/22 07/08/22 11:05 12:01 14:32 Sodium Cancelled 149 H 151 H Potassium Cancelled 4.9 3.7 D Chloride Cancelled 111 H 115 H Carbon Dioxide Cancelled 16 L 13 L BUN Cancelled 79 H 74 H Creatinine Cancelled 1.97 H 1.81 H Glucose Cancelled 768 H* 619 H* Calcium Cancelled 10.3 H 9.4 07/08/22 07/08/22 07/08/22 17:37 17:37 20:43 Sodium 154 H 155 H Potassium 3.6 3.6 Chloride 121 H 124 H Carbon Dioxide 18 L 19 L BUN 67 H 63 H Creatinine 1.60 H 1.38 Glucose 405 H* Cancelled 302 H* Calcium 9.5 9.4 07/08/22 07/09/22 07/09/22 23:04 02:10 05:50 Sodium 155 H 156 H* 157 H* Potassium 3.9 4.2 4.0 Chloride 125 H 127 H 128 H Carbon Dioxide 21 21 24 BUN 57 H 51 H 45 H Creatinine 1.30 1.22 1.13 Glucose 296 H 336 H* 252 H Calcium 8.7 8.5 8.6 Cardiac Enzymes 07/08/22 Range/Units 12:01 Total Creatine Kinase 62 (30-223) U/L Liver Function 07/08/22 07/08/22 07/08/22 Range/Units 11:05 12:01 20:43 Total Bilirubin Cancelled 0.7 0.7 Direct Bilirubin Cancelled 0.1 0.1 AST Cancelled 9 L 9 L ALT Cancelled 8 6 L Alkaline Phosphatase Cancelled 123 H 113 H Albumin Cancelled 2.7 L 2.6 L 07/08/22 07/09/22 Range/Units 20:43 05:50 Total Bilirubin 0.7 0.6 Direct Bilirubin 0.1 AST 10 L 11 L ALT 6 L 6 L Alkaline Phosphatase 113 H 104 Albumin 2.7 L 2.5 L Urine 07/08/22 Range/Units 10:59 Urine Color Yellow Urine Appearance Cloudy A (Clear) Urine pH 5.0 (4.5-7.5) Ur Specific [place] 1.030 (1.000-1.030) Urine Protein Negative (Negative) Urine Glucose (UA) 3+ H (Negative) Diagnostic Findings Chest X-Ray 07/08/22 20:11 SINGLE VIEW CHEST CLINICAL HISTORY: Respiratory failure. FINDINGS: An AP, portable, upright chest radiograph is compared to chest x-ray and chest CT performed earlier the same day 07/08/2022. An endotracheal tube has been placed. The tip projects 5.5 cm above the amber. A right internal jugular central venous catheter is been placed. The tip projects over the right atrium. The cardiomediastinal silhouette is unremarkable noting atherosclerotic calcification of the thoracic aorta. Chronic interstitial thickening is similar to previous. No airspace consolidation or large pleural effusion is identified. No pneumothorax is seen. The skeletal structures are osteopenic. The bony thorax is grossly intact. IMPRESSION: 1. An endotracheal tube and a right internal jugular central venous catheter have been placed as above. No pneumothorax is seen post procedure. 2. The lungs are clear. ACT 112: Negative or not required by law. Electronically signed by: Jaylan Freeman M.D. 07/08/2022 8:37 PM Medications Administered Current Inpatient Medications Acetaminophen (Acetaminophen 325 Mg Tab) 650 mg PO Q4H PRN PRN Reason: Pain or Fever Stop: 08/07/22 20:22 Dextrose (Dextrose 50% 50 Ml Syringe) 25 - 50 ml IV UD PRN; Protocol PRN Reason: Hypoglycemia Protocol Stop: 08/07/22 13:19 Fentanyl Citrate (Fentanyl Bolus From Bag) 50 mcg IV Q60M PRN PRN Reason: Pain or Agitation Stop: 07/22/22 20:32 Glucagon (Glucagon For Inj 1 Mg Vial) 1 mg SQ UD PRN; Protocol PRN Reason: Hypoglycemia Protocol Stop: 08/07/22 13:19 Glucose (Glucose 40% Gel 15 Gm Tube) 15 - 30 gm PO UD PRN; Protocol PRN Reason: Hypoglycemia Protocol Stop: 08/07/22 13:19 Glucose (Glucose 10 Tab/Tube) 4 - 8 tab PO UD PRN; Protocol PRN Reason: Hypoglycemia Treatment Stop: 08/07/22 13:19 Insulin Human Regular 250 (units/ Sodium Chloride) 250 mls @ 5.6 mls/hr IV .Q24H HOANG; Protocol Stop: 08/07/22 13:29 Last Titration: 07/09/22 07:00 Dose: 5.6 units/hr, 5.6 mls/hr Clindamycin Phosphate (Cleocin/D5w) 900 mg in 50 mls @ 100 mls/hr IV Q8H [facility]ANG Stop: 07/15/22 14:59 Last Infusion: 07/09/22 06:36 Dose: Infused Piperacillin Sod/Tazobactam (Sod 4.5 gm/ Dextrose) 120 mls @ 30 mls/hr IV Q8H [facility]ANG; Protocol Stop: 07/15/22 20:29 Last Admin: 07/09/22 05:24 Dose: 30 mls/hr Fentanyl Citrate (Fentanyl Citrate) 2,500 mcg in 250 mls @ 12.5 mls/hr IV .Q20H [facility]; Protocol Stop: 07/22/22 20:44 Last Titration: 07/09/22 07:12 Dose: 125 mcg/hr, 12.5 mls/hr Norepinephrine Bitartrate (Levophed/D5w) 4 mg in 250 mls @ 17.344 mls/hr IV .[id number] [facility]ANG; Protocol Stop: 08/07/22 21:29 Last Titration: 07/09/22 06:30 Dose: 0 mcg/kg/min, 0 mls/hr Potassium Chloride/Sodium Chloride (1/2 Nss + 20meq Kcl 1000ml) 20 meq in 1,000 mls @ 125 mls/hr IV .Q8H [facility]; Protocol Stop: 08/08/22 03:44 Last Admin: 07/09/22 03:50 Dose: 125 mls/hr Famotidine 20 mg/ Syringe 5 mls @ 2.5 mls/min IV Q12 [facility]ANG Stop: 08/08/22 08:59 Vancomycin HCl 1,000 mg/ (Sodium Chloride) 270 mls @ 200 mls/hr IV Q12H [facility]; Protocol Stop: 07/16/22 09:59 Insulin Aspart (Insulin Aspart Per Unit) 0 units SC ACHS [facility] Stop: 08/07/22 16:29 Last Admin: 07/09/22 07:35 Dose: Not Given Midazolam HCl (Midazolam Hcl 1 Mg/Ml 2ml Vial) 2 mg IV Q2H PRN PRN Reason: RASS goal -1 Stop: 08/07/22 20:32 Last Admin: 07/09/22 04:15 Dose: 2 mg Miscellaneous (Carbohydrates For Hypoglycemia ) 15 - 30 gm PO UD PRN PRN Reason: Hypoglycemia Protocol Stop: 08/07/22 13:19 Miscellaneous Information (Pharmacy Glycemic Mgmt Consult) 1 each N/A UD PRN PRN Reason: Consult Stop: 08/07/22 20:22 Miscellaneous Information (Vancomycin Consult Active) 2,000 each N/A UD PRN PRN Reason: Consult Stop: 08/07/22 20:26 Ondansetron HCl (Ondansetron Inj 2 Mg/Ml 2 Ml Vial) 4 mg IV Q6H PRN PRN Reason: Nausea Stop: 08/07/22 20:22 Polyethylene Glycol (Polyethylene (Miralax) 17 Gm Pack) 17 gm PO DAILY PRN PRN Reason: Constipation Stop: 08/07/22 20:22 Rosuvastatin Calcium (Rosuvastatin Calcium 10 Mg Tab) [facility] Stop: 08/08/22 08:59
--- NOTE | 2022-07-09 08:27 | Procedure Note ---
Procedure Note Date of Service July 09, 2022 Note ARTERIAL LINE PROCEDURE NOTE: Procedure: Arterial Line Placement Provider: Gibran Zapata MD Indication: Monitoring on Pressors Anesthesia: None Procedure was emergent. No family immediately available. Patient is intubated and sedated and unable to provide consent. A time-out was completed verifying correct patient, procedure, site, positioning, and implant(s) or special equipment if applicable. Allens test was performed to ensure adequate perfusion. Patients left wrist was prepped and draped in the usual sterile fashion. A 20g Arrow arterial line was introduced into the left radial artery. Catheter was threaded, and the needle was removed with appropriate blood return. Good waveform was observed. The patient tolerated the procedure well. Blood Loss: Minimal Complications: None Coding CPT Codes Tubes, Drains, and Vasc Access - Tubes, Drains, and Vasc Access: [id number] Arterial Cath/Cannulation Sampling/Monitoring/Transfusion ([id number]) [facility] [place] Procedure Codes (Charges) Tubes, Drains, and Vasc Access Procedure 1: Tubes, Drains, and Vasc Access: [id number] Arterial Cath/Cannulation Sampling/Monitoring/Transfusion
[2022-07-09 08:28] LABS: Estimated Average Glucose 292 mg/dl; Hemoglobin A1C 11.8 % (4.5-5.6)
[2022-07-09] MEDS ORDERED: propofoL 1,000 MG/100 ML VIAL IV SCH (08:30)
[2022-07-09] MEDS ORDERED: ROSUVASTATIN CALCIUM 10 MG TAB PO SCH (09:00)
[2022-07-09] MEDS ORDERED: PANTOprazole 40 MG TAB PO SCH (09:00)
[2022-07-09] MEDS ORDERED: FAMOTIDINE 20 MG in SYRINGE 3 ML IV SCH (09:00)
--- NOTE | 2022-07-09 09:41 | Discharge Summary ---
Discharge Summary Date of Service July 09, 2022 Notes For Next Care Provider Current Inpatient Medications Acetaminophen (Acetaminophen 325 Mg Tab) 650 mg PO Q4H PRN PRN Reason: Pain or Fever Stop: 08/07/22 20:22 Dextrose (Dextrose 50% 50 Ml Syringe) 25 - 50 ml IV UD PRN; Protocol PRN Reason: Hypoglycemia Protocol Stop: 08/07/22 13:19 Fentanyl Citrate (Fentanyl Bolus From Bag) 50 mcg IV Q60M PRN PRN Reason: Pain or Agitation Stop: 07/22/22 20:32 Glucagon (Glucagon For Inj 1 Mg Vial) 1 mg SQ UD PRN; Protocol PRN Reason: Hypoglycemia Protocol Stop: 08/07/22 13:19 Glucose (Glucose 40% Gel 15 Gm Tube) 15 - 30 gm PO UD PRN; Protocol PRN Reason: Hypoglycemia Protocol Stop: 08/07/22 13:19 Glucose (Glucose 10 Tab/Tube) 4 - 8 tab PO UD PRN; Protocol PRN Reason: Hypoglycemia Treatment Stop: 08/07/22 13:19 Insulin Human Regular 250 (units/ Sodium Chloride) 250 mls @ 5.6 mls/hr IV .Q24H HOANG; Protocol Stop: 08/07/22 13:29 Last Titration: 07/09/22 07:00 Dose: 5.6 units/hr, 5.6 mls/hr Clindamycin Phosphate (Cleocin/D5w) 900 mg in 50 mls @ 100 mls/hr IV Q8H HOANG Stop: 07/15/22 14:59 Last Infusion: 07/09/22 06:36 Dose: Infused Piperacillin Sod/Tazobactam (Sod 4.5 gm/ Dextrose) 120 mls @ 30 mls/hr IV Q8H HOANG; Protocol Stop: 07/15/22 20:29 Last Infusion: 07/09/22 09:28 Dose: Infused Fentanyl Citrate (Fentanyl Citrate) 2,500 mcg in 250 mls @ 12.5 mls/hr IV .Q20H HOANG; Protocol Stop: 07/22/22 20:44 Last Titration: 07/09/22 07:12 Dose: 125 mcg/hr, 12.5 mls/hr Norepinephrine Bitartrate (Levophed/D5w) 4 mg in 250 mls @ 17.344 mls/hr IV .[id number] HOANG; Protocol Stop: 08/07/22 21:29 Last Titration: 07/09/22 08:30 Dose: 0.04 mcg/kg/min, 13.9 mls/hr Potassium Chloride/Sodium Chloride (1/2 Nss + 20meq Kcl 1000ml) 20 meq in 1,000 mls @ 125 mls/hr IV .Q8H HOANG; Protocol Stop: 08/08/22 03:44 Last Admin: 07/09/22 03:50 Dose: 125 mls/hr Famotidine 20 mg/ Syringe 5 mls @ 2.5 mls/min IV Q12 HOANG Stop: 08/08/22 08:59 Vancomycin HCl 1,000 mg/ (Sodium Chloride) 270 mls @ 200 mls/hr IV Q12H [facility]; Protocol Stop: 07/16/22 09:59 Propofol (Diprivan) 1,000 mg in 100 mls @ 11.316 mls/hr IV .Q8H51M [facility]; Protocol Stop: 07/12/22 08:29 Last Admin: 07/09/22 08:15 Dose: 20 mcg/kg/min, 11.3 mls/hr Insulin Aspart (Insulin Aspart Per Unit) 0 units SC ACHS [facility] Stop: 08/07/22 16:29 Last Admin: 07/09/22 07:35 Dose: Not Given Miscellaneous (Carbohydrates For Hypoglycemia ) 15 - 30 gm PO UD PRN PRN Reason: Hypoglycemia Protocol Stop: 08/07/22 13:19 Miscellaneous Information (Pharmacy Glycemic Mgmt Consult) 1 each N/A UD PRN PRN Reason: Consult Stop: 08/07/22 20:22 Miscellaneous Information (Vancomycin Consult Active) 2,000 each N/A UD PRN PRN Reason: Consult Stop: 08/07/22 20:26 Ondansetron HCl (Ondansetron Inj 2 Mg/Ml 2 Ml Vial) 4 mg IV Q6H PRN PRN Reason: Nausea Stop: 08/07/22 20:22 Polyethylene Glycol (Polyethylene (Miralax) 17 Gm Pack) 17 gm PO DAILY PRN PRN Reason: Constipation Stop: 08/07/22 20:22 Propofol (Propofol Bolus From Bag) 20 mg IV Q5M PRN PRN Reason: Sedation Stop: 07/12/22 08:24 Rosuvastatin Calcium (Rosuvastatin Calcium 10 Mg Tab) 10 mg PO QAM [facility] Stop: 08/08/22 08:59 Medication Changes From Visit see medication reconciliation Admission HPI Per Admitting Provider This is a 61yo M with a PMH of diabetic wounds, osteomyelitis, history of CVA, hypertension, hyperlipidemia, DM2 on oral medications, BPH, past tobacco abuse and other medical problems listed below who presents with AMS in setting of foot wounds. Patient lives with his brother and [id number]. Was reportedly noticed to be confused and less responsive yesterday. Was brought in covered in feces in an obtunded state with wound on left foot. History primarily obtained from documentation, patient family and admitting RN due to patient only being oriented to self at this time. Patient previously admitted for diabetic foot wounds 4 months ago and found to have osteomyelitis status post amputation of 4th and 5th toes by Dr. Jackson as well as additional debridement and wound vac placement as well as right leg arteriogram lithotripsy the proximal popliteal artery and mechanical closure of the left femoral artery by Dr. Ocampo. Was discharged to SNF and received 6 weeks total of IV abx. Patient was reportedly following with wound care in clinic until recently and attempted to switch wound care groups due to schedule availability as far as rides go. Per EMR link, [id number] Elvira was to connect with [facility] wound care center. Underwent consultation there at the end of May but reportedly was not agreeable to treatment plan that included debridement and a follow-up appointment was not made. Unable to obtain ROS from patient as he is only oriented to person at this time. Admission Exam Per Admitting Provider PE: Slightly lethargic but follows command HEENT: swallow R side of the face near the parotid area, dry mucus membrane, unable to completely examine the oropharynx bc pt was unable to open the mouth completely Lungs: CTA, no wheezing or crackles Cardiac: normal S1/S2, no murmur Abd: ND, soft, but diffuse TTP MSK: R foot: swollen and erythematous and foul smelling with multiple open wound with necrotic tissue with possible feces Psych: lethargic, follows command and able to say his name Principal Dx & Hospital Course #1 = Principal Diagnosis (1) Metabolic encephalopathy: (2) Acute respiratory failure: (3) Septic shock: (4) On mechanically assisted ventilation: (5) DKA (diabetic ketoacidosis): (6) Hypernatremia: (7) Osteomyelitis of right foot: (8) Diabetic foot infection: (9) Necrotizing fasciitis: (10) UTI (urinary tract infection): (11) Periapical abscess: (12) Acute renal failure: (13) Anemia: (14) Neuropathy: (15) Post-operative state: Plan 61 yo diabetic man with a history of chronic diabetic wounds with neuropathy and known history of osteomyelitis presented with acute metabolic encephalopathy and septic shock 2/2 necrotizing fasciitis of the right foot. He was intubated and admitted to the ICU. DKA was a complicating issue and resolved with insulin and other medical treatments. Electrolytes were replaced as needed. HbA1C is 11.8. Other possibly contributing infections included a UTI and periapical abscesses. There was concern for facial infection with swelling noted in the right mandible which extended into the preauricular lymph nodes. A CT cervical spine revealed dental caries and periapical lucencies which may represent oral maxillofacial surgery. Podiatry evaluated patient on 07/08 and he was taken to the OR s/p Lisfrank amputation with extensive aggressive debridement and exploration of the right foot. Findings were consistent with gas gangrene, diabetic foot ulcer, osteomyelitis with necrotizing fasciitis. Althought CT head and CT chest were unremarkable, he was intubated 2/2 obtunded state. He required Levophed and IVF resuscitation. He was treated with clindamycin, vancomycin and zosyn. This trended down and EKG did not reveal evidence of acute ischemia. Transthoracic echocardiogram on 07/09 revealed localized apical wall motion abnormality with severe hypokinesis to dyskinesis. Findings were read as may reflect ischemic disease versus apical ballooning cardiomyopathy. Left ventricular systolic function was mildly reduced with EF 45-50%. There was no gross valvular disease present. Grade I diastolic dysfunction was noted. After discussion with field gauger, this was felt to be consistent with demand ischemia in setting of septic shock. On discharge he was found to have a worsening hypernatremia with a Na 157. He was getting normal saline with 20MEq KCL on discharge, which should likely be changed on arrival to tertiary care to include more free water. Will defer to receiving facility. He remains on an insulin drip on discharge with a glucose of 252 with anion gap closed in the last 24 hours. Defer additional management of hyperglycemia to receiving facility. On 07/09, his clinical picture reflected a persistent state of infection and the current surgical options were not sufficient at this facility, so he was transferred in critical condition to [facility] for further debridement. Pending studies at discharge include gram positive cocci in chains with no clear speciation or sensitivity from 07/08 (2 out of 4 bottles). GPC are also seen in the wound cultures of the right foot without speciation at discharge. Also, creatinine on admission was 1.9 with resolution of acute renal failure after sepsis resuscitation to 1.1 at time of discharge. Discharge Exam intubated and sedated on discharge. Updated Medication List Medication Instructions Recorded Confirmed Type ammonium lactate 12 % lotion 1 applic topical UD PRN dry skin 02/17/22 07/08/22 History on legs clopidogrel 75 mg tablet 75 mg PO QAM 02/17/22 07/08/22 History dutasteride 0.5 mg capsule 0.5 mg PO QAM 02/17/22 07/08/22 History empagliflozin 10 mg tablet 10 mg PO QAM 02/17/22 07/08/22 History (Jardiance) metoprolol tartrate 25 mg tablet 25 mg PO QAM 02/17/22 07/08/22 History olmesartan 40 mg tablet 40 mg PO QAM 02/17/22 07/08/22 History pantoprazole 40 mg tablet,delayed 40 mg PO QAM 02/17/22 07/08/22 History release rosuvastatin 10 mg tablet 10 mg PO QPM 02/17/22 07/08/22 History amlodipine 5 mg tablet 5 mg PO DAILY 06/23/22 07/08/22 History folic acid 1 mg tablet 0 mg PO DAILY 07/08/22 07/08/22 History vitamin B complex 1 tab PO DAILY 07/08/22 07/08/22 History Hospital Stay Data Consultations 07/08/22 13:29 ED Decision to Admit Stat 07/08/22 14:22 Consult Orthopedic Surgery Routine 07/08/22 16:07 Consult Oromaxillofacial Surgery Routine 07/09/22 00:54 Consult White Sugar Boiler Routine 07/09/22 08:33 Burn CD for patient Stat Procedures Performed Operation Date: 07/08/22 12:30 Actual Procedures p Lisfrank amputation(Right) - Gianluca Jackson DPM, MS s Extensive, agressive debridement and exploration right foot(Right) - Gianluca Jackson DPM, MS Diagnostic Imagining Performed 07/08/22 FL ankle RT 2V Routine 07/08/22 11:35 CT cervical spine wo con Stat CT chest diagnostic wo con Stat CT foot RT wo con Stat CT head/brain wo con Stat 07/08/22 11:37 CT abd pelvis wo con Stat Discharge Instructions Given to Patient (Per Discharging Provider) Please consider followup with primary care within one week of discharge from the receiving facility. It was a pleasure taking care of you! Please call if you have any questions or problems. You can reach a [facility] hospitalist on duty at [facility] 24 hours a day by calling [phone]. Take care of yourself. Genia Kaplan, [facility] Center[facility] Total Time Total Time Spent Total Time Spent (In Minutes): 60
[2022-07-09] MEDS ORDERED: VANCOMYCIN HCL 1,000 MG in SODIUM CHLORIDE 0.9% 250 ML IV SCH (10:00)
--- NOTE | 2022-07-10 23:22 | Electrocardiogram Report ---
Test Reason : Blood Pressure : / mmHG Vent. Rate : 077 BPM Atrial Rate : 077 BPM P-R Int : 162 ms QRS Dur : 070 ms QT Int : 400 ms P-R-T Axes : 060 023 074 degrees QTc Int : 452 ms Normal sinus rhythm Possible Inferior infarct , age undetermined Anteroseptal infarct (cited on or before 17-FEB-2022) T wave abnormality, consider anterior ischemia Abnormal ECG When compared with ECG of 17-FEB-2022 23:16, Borderline criteria for Inferior infarct are now Present Confirmed by Yovanny Ortiz ([id number]) on 07/10/2022 11:22:22 PM Referred By: REFERRED SELF Confirmed By:Yovanny Ortiz
--- NOTE | 2022-07-11 06:05 | Electrocardiogram Report ---
Test Reason : Blood Pressure : / mmHG Vent. Rate : 075 BPM Atrial Rate : 075 BPM P-R Int : 146 ms QRS Dur : 080 ms QT Int : 408 ms P-R-T Axes : 045 031 070 degrees QTc Int : 455 ms Normal sinus rhythm Anteroseptal infarct (cited on or before 17-FEB-2022) T wave abnormality, consider anterior ischemia Abnormal ECG When compared with ECG of 08-JUL-2022 12:59, Nonspecific T wave abnormality now evident in Lateral leads Confirmed by Yovanny Ortiz ([id number]) on 07/11/2022 6:05:43 AM Referred By: REFERRED SELF Confirmed By:Yovanny Ortiz
--- NOTE | 2022-07-11 14:11 | Coding Query ---
CODING QUERY To promote full compliance with coding requirements relating to patient care, provider participation is requested in all cases of boxing trainer uncertainty. Please assist us with the question(s) below: Coding Question(s): There is documentation of Surgical wound, non healing on the H&P and on the 07/08 Surgical Consultation and Critical Care Consultation, with no further mention of it or description of the location of the non healing surgical wound or it's significance, and the 07/09 Critical Care Progress Note documents nonhealing diabetic foot ulcer so it is not clear if or how to code Surgical wound, non healing. Please specify below, in your clinical opinion: ( x) Surgical Wound, Non Healing was a significant diagnosis during this admission. Please specify the site of the Non Healing Surgical Wound:__right foot/ankle . Please also specify further below, in your clinical opinion: ( ) Surgical Wound, Non Healing was Not likely causing infection ( x ) Surgical Wound, Non Healing was likely causing infection ( ) Surgical Wound, Non Healing was Not a significant diagnosis on this admission ( ) Surgical Wound, Non Healing was an error and is actually Nonhealing Diabetic Foot Ulcer ( ) Other: Please Specify Physician's Response(s): Thank you Dana Brumfield Principal Diagnosis: "that condition established after study, to be chiefly responsible for occasioning the admission of the patient to the hospital for care." Co-Existing Principal Diagnosis: "when two or more diagnoses equally meet the criteria for principal diagnosis as determined by the circumstances of admission, diagnostic work up, and/or therapy provided, and the Alphabetic Index, Tabular List, or another coding guideline does not provide sequencing direction, any one of the diagnoses may be sequenced first." "When the physician has documented what appears to be a current diagnosis in the body of the record, but has not included the diagnosis in the final diagnostic statement, the physician should be asked whether the diagnosis should be added." (Source Coding Clinic 2 QTR90. p3-4) KAL
--- NOTE | 2022-07-13 15:34 | Oral/Maxillofacial Consult ---
Date of Consultation July 13, 2022 History of Present Illness Attending Physician: Genia Kaplan, History of Present Illness I was asked to Evaluate Mr. Rojas for the following reason: Concern for facial infection Swelling noted during exam near right mandible extending to preauricular lymph nodes Unable to elicit history or meaningful information from patient Cervical spine CT with dental caries and periapical lucencies which may represent periapical abscesses Will consult Oral Maxillofacial surgery, may need further imaging once stabilized On ThursdayJuly 09 I reviewed the chart notes and personally reviewed the CT scan. There seems to be chronic periapical radiolucent areas associated with a number of teeth. There is no cortical breakthrough. I will evaluate this further once see patient. When I entered room 109 Rishi PETERSON informed me that they will be transferring Mr Rojas to [facility] and there was no need for my consultation. Only chart review and Review of the CT was preformed and consult was cancelled due to patient condition and transfer. Allergies Allergy/AdvReac Type Severity Reaction Status Date / Time aloe vera Allergy Unknown Unknown Verified 07/08/22 11:58 Sulfa (Sulfonamide AdvReac Mild Nausea Verified 07/08/22 11:58 Antibiotics) Home Medications Medication Instructions Recorded Confirmed Type ammonium lactate 12 % lotion 1 applic topical UD PRN dry skin 02/17/22 07/08/22 History on legs clopidogrel 75 mg tablet 75 mg PO QAM 02/17/22 07/08/22 History dutasteride 0.5 mg capsule 0.5 mg PO QAM 02/17/22 07/08/22 History empagliflozin 10 mg tablet 10 mg PO QAM 02/17/22 07/08/22 History (Jardiance) metoprolol tartrate 25 mg tablet 25 mg PO QAM 02/17/22 07/08/22 History olmesartan 40 mg tablet 40 mg PO QAM 02/17/22 07/08/22 History pantoprazole 40 mg tablet,delayed 40 mg PO QAM 02/17/22 07/08/22 History release rosuvastatin 10 mg tablet 10 mg PO QPM 02/17/22 07/08/22 History amlodipine 5 mg tablet 5 mg PO DAILY 06/23/22 07/08/22 History folic acid 1 mg tablet 0 mg PO DAILY 07/08/22 07/08/22 History vitamin B complex 1 tab PO DAILY 07/08/22 07/08/22 History Patient History Medical History Amputation toe Right 4th Toe- 02/27/22 BPH (benign prostatic hyperplasia) Cellulitis of toe of right foot Diabetes mellitus Diabetic ulcer of right fifth toe Dyslipidemia Essential hypertension Former smoker GERD (gastroesophageal reflux disease) Hyponatremia Mixed hyperlipidemia Neuropathy Obesity Osteomyelitis of right foot Peripheral arterial disease S/P arteriogram of extremity Right leg, lithotripsy of proximal popliteal artery, mechanical closure of left femoral artery, 02/25/22 Stroke July 2020 Right upper extremity weakness Surgical complication involving skin Application of [place] Graft to Right Forefoot-03/28/22 Surgical History History of incision and drainage partial excision of fifth ray of right foot, delayed primary closure 02/18/22 S/P debridement Right foot debridement, wound vac application 02/21/22 Family History Other Diabetes Social History Smoking Status: Former smoker Hx Alcohol Use: No Hx Substance Use: No Preferred Language: Upper Sorbian Communication Ability: Unable Bitumastic Applier Required: No Beliefs That Will Affect Care: None marital status: Single Current Living Situation: Family Current Living Situation Comment: nephew living with patient How many Children do You have: 9 Feels Safe at Home: Yes Assistive Devices: Glasses PG Care Time/CCT Total # of Minutes Spent Total Time Spent with Patient: Total time spent is greater than 50% in coordination of care (as documented) at patient's floor/unit and/or counseling patient: Coding Level of Care Code 01484 INT INP/OBS CARE 140MIN Diagnoses
== END 2022-07-09 10:55 | disposition short-term general hospital (02) | DRG 856 ==
LOC: ED 10:33 → SUATTDRO 14:14 → OR 16:42 → 1E 20:06

== ENCOUNTER 2023-07-21 18:38 | Inpatient (IN) ==
--- NOTE | 2023-07-21 19:36 | Emergency Department Note ---
Impression & Plan Skin infection, Open wound of left heel, Hyperglycemia, Noncompliance with medication regimen, Unable to care for self ED Provider Note NAME: YASEMIN HADDAD AGE: 62 SEX: M : 1960 ARRIVES VIA: Ambulance INFORMANT: Patient, ED PROVIDER(S): Elliot Chao MD CHIEF COMPLAINT: Concern for inability to care MEDICAL DECISION MAKING: Patient presented due to concern for inability to care and noncompliance. IV was established and blood work was obtained. Blood work shows a white count of 13 with a normal H&H and platelet count. The patient's kidney function is unremarkable BSG 279 but not DKA. Slight elevation in gap and normal bicarb. Patient's urinalysis does show ketones. The patient did receive IV fluids. Further discussion with the patient the patient's [id number] the patient is amenable to staying in hospital consider possible placement as the patient is unable to care for self and family feels as though they are unable to care for the patient. Given the patient's white count with some of the skin breakdown the patient was ordered Rocephin. I did speak the on-call hospital service Dr. Johnson and the patient was admitted to the medicine service. Discussion w/ other healthcare providers: Dr. Johnson inpatient medicine service Prior /Outside records reviewed: I reviewed an [facility] note from Dr. Harrington August 01, 2022. 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 Patient also had associated septic shock and critical illness myopathy. Also known history of PAD type 2 diabetes hypertension hyperlipidemia GERD and CVA. I did review nurse practitioner note Mely Lawler and of the head patient had presented with multiple issues. Patient reportedly spent most of the visit complaining about staff rehab and other staff at [facility] family numbers were concerned that they are unable to take care of him at home. Patient unable to take care of himself and failure was the only ones taking care of him the patient does not trust doctors. Patient was advised to call the office with any new symptoms and did not have refills dispensed of Jardiance Plavix dutasteride and rosuvastatin. Differential diagnosis: Infection, dehydration, metabolic abnormality, hypo/hyperglycemia, electrolyte imbalance, anemia, UTI, pneumonia, thyroid dysfunction among others were considered. Diagnostics, as interpreted by me: ECG: Normal sinus rhythm, rate of 77, normal intervals, normal axis, slight elevations anteriorly with T wave inversion. T wave versions also noted in the high lateral leads. Patient's morphology difficult to ascertain given motion artifacts but appears grossly unchanged from comparison July 09, 2022.This appears grossly unchanged from February 17, 2022 as well as July 08, 2022 Cardiac monitoring: An order was placed for continuous cardiac monitoring. The monitor shows a rate of 75 with sinus rhythm. Patient was placed on pulse oximetry Medical decision rules: None Imaging studies: None HPI:Patient presents due to concern for inability to take some of his medications and has been noncompliant for the last 9 months. Patient was seen in his outpatient provider's office today and referred here for evaluation and treatment and concerned that the patient does have some wounds to the lower extremities. I did speak with the patient's [id number] who who provided some additional history is concerned as the patient is not taking care of himself and is not taking his medications. The patient states that he stopped taking his medications about 9 months ago as he noticed he had some abdominal discomfort and by stopping some of his medications he noticed improvement in symptoms. Patient is currently only taking Jardiance and Avodart. Patient reportedly required some blood work to be completed for insurance to cover his additional medications as he did have an outpatient appointment today for follow-up and refills. Patient denies any chest pains or shortness of breath no nausea vomiting or diarrhea. PAST MEDICAL HISTORY: See Below PAST SURGICAL HISTORY: See Below SOCIAL HISTORY: See Below HOME MEDICATIONS: See Below ALLERGIES: See Below VITALS: See Below PHYSICAL EXAMINATION: GENERAL: NAD, non-toxic. EYE EXAM: Normal conjunctiva. PERRL, no anisocoria and EOM's grossly intact w/o pain. OROPHARYNX: Moist mucus membranes, grossly normal dentition. NECK: Trachea midline, no stridor. Supple, no nuchal rigidity, no adenopathy, non-tender. No signs of meningismus. FROM of the neck with good chin to chest and neck extension. LUNGS: Clear to auscultation. Normal chest wall mechanics. HEART: NSR, no MRG. ABDOMEN: Abdomen soft, non-tender, no masses, no rebound or guarding. BACK: No CVA TTP. SKIN: No rashes and no bruising. UPPER EXTREMITIES: Upper extremities are grossly normal. LOWER EXTREMITIES: Lower extremity BKA with sutures in place abrasion noted to the distal portion of the stump without fluctuance drainage crepitus or purulent drainage. Left heel noted with open wound stage II. No surrounding erythema fluctuance drainage or crepitus. NEURO EXAM: A&O x3, cranial nerves II-XII grossly intact, normal speech, moves all 4 extremities. 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- 02/27/22 S/P arteriogram of extremity Right leg, lithotripsy of proximal popliteal artery, mechanical closure of left femoral artery, 02/25/22 Diabetic ulcer of right fifth toe Cellulitis of toe of right foot Former smoker BPH (benign prostatic hyperplasia) Hyponatremia Mixed hyperlipidemia Essential hypertension Peripheral arterial disease Stroke July 2020 Right upper extremity weakness GERD (gastroesophageal reflux disease) Neuropathy Dyslipidemia Diabetes mellitus Obesity Osteomyelitis of right foot Surgical History S/P debridement Right foot debridement, wound vac application 02/21/22 History of incision and drainage partial excision of fifth ray of right foot, delayed primary closure 02/18/22 Family History Other Diabetes Social History Smoking Status: Former smoker Tobacco Type: Cigarettes Do You Dip or Chew Tobacco: No; Hx Alcohol Use: No Hx Substance Use: No Preferred Language: Syriac Communication Ability: Unable Book Critic Required: No Beliefs That Will Affect Care: None marital status: Single Current Living Situation: Family Current Living Situation Comment: nephew living with patient How many Children do You have: 9 Feels Safe at Home: Yes Assistive Devices: Glasses Allergies Allergies Allergy/AdvReac Type Severity Reaction Status Date / Time aloe vera Allergy Unknown Unknown Verified 07/21/23 20:05 Sulfa (Sulfonamide AdvReac Mild Nausea Verified 07/21/23 20:05 Antibiotics) Home Meds Home Medications Medication Instructions Recorded Confirmed ammonium lactate 12 % lotion 1 applic topical UD PRN dry skin 02/17/22 07/21/23 on legs clopidogrel 75 mg tablet 0 mg PO QAM 02/17/22 07/21/23 dutasteride 0.5 mg capsule 0.5 mg PO QAM 02/17/22 07/21/23 empagliflozin 10 mg tablet 10 mg PO QAM 02/17/22 07/21/23 (Jardiance) metoprolol tartrate 25 mg tablet 0 mg PO QAM 02/17/22 07/21/23 olmesartan 40 mg tablet 0 mg PO QAM 02/17/22 07/21/23 pantoprazole 40 mg tablet,delayed 0 mg PO QAM 02/17/22 07/21/23 release rosuvastatin 10 mg tablet 0 mg PO QPM 02/17/22 07/21/23 amlodipine 5 mg tablet 0 mg PO DAILY 06/23/22 07/21/23 folic acid 1 mg tablet 0 mg PO DAILY 07/08/22 07/21/23 vitamin B complex 0 tab PO DAILY 07/08/22 07/21/23 Results & Data (ED) Vital Signs Vital Signs - 24 hr 07/21/23 18:32 07/21/23 18:47 07/21/23 19:00 Temperature 37.1 C Temperature Source Oral Pulse Rate 78 77 76 Pulse Rate from SpO2 Sensor Pulse Rhythm Regular Pulse Strength Normal Respiratory Rate 18 13 Respiratory Effort / Characteristics Non-Labored Spontaneous Respiratory Depth Normal Respiratory Pattern Regular Blood Pressure 183/84 H Blood Pressure Mean 117 Blood Pressure Position Sitting Pulse Oximetry 98 Oxygen Delivery Method Room Air Sepsis Recent Fever Within 48 Hours No Sepsis New/Unexplained Change in Mental Status Yes Sepsis Action Taken by Nursing No Action Required 07/21/23 19:30 07/21/23 20:00 07/21/23 20:30 Temperature Temperature Source Pulse Rate 85 75 88 Pulse Rate from SpO2 Sensor 75 Pulse Rhythm Pulse Strength Respiratory Rate 15 18 18 Respiratory Effort / Characteristics Respiratory Depth Respiratory Pattern Blood Pressure Blood Pressure Mean Blood Pressure Position Pulse Oximetry 94 Oxygen Delivery Method Sepsis Recent Fever Within 48 Hours Sepsis New/Unexplained Change in Mental Status Sepsis Action Taken by Nursing 07/21/23 21:00 07/21/23 21:11 07/21/23 21:11 Temperature Temperature Source Pulse Rate 83 83 Pulse Rate from SpO2 Sensor 82 83 Pulse Rhythm Pulse Strength Respiratory Rate 16 16 Respiratory Effort / Characteristics Respiratory Depth Respiratory Pattern Blood Pressure 149/97 H Blood Pressure Mean 127 Blood Pressure Position Pulse Oximetry 97 98 Oxygen Delivery Method Sepsis Recent Fever Within 48 Hours Sepsis New/Unexplained Change in Mental Status Sepsis Action Taken by Nursing 07/21/23 21:30 07/21/23 22:00 07/21/23 22:00 Temperature Temperature Source Pulse Rate 81 80 Pulse Rate from SpO2 Sensor 81 80 Pulse Rhythm Pulse Strength Respiratory Rate 14 19 Respiratory Effort / Characteristics Respiratory Depth Respiratory Pattern Blood Pressure 178/88 H Blood Pressure Mean 126 Blood Pressure Position Pulse Oximetry 96 94 Oxygen Delivery Method Sepsis Recent Fever Within 48 Hours Sepsis New/Unexplained Change in Mental Status Sepsis Action Taken by Nursing 07/21/23 22:30 07/21/23 22:39 07/21/23 23:00 Temperature Temperature Source Pulse Rate 78 85 78 Pulse Rate from SpO2 Sensor 78 78 Pulse Rhythm Pulse Strength Respiratory Rate 20 15 Respiratory Effort / Characteristics Respiratory Depth Respiratory Pattern Blood Pressure Blood Pressure Mean Blood Pressure Position Pulse Oximetry 93 95 Oxygen Delivery Method Sepsis Recent Fever Within 48 Hours Sepsis New/Unexplained Change in Mental Status Sepsis Action Taken by Nursing 07/21/23 23:00 07/22/23 00:00 07/22/23 01:01 Temperature Temperature Source Pulse Rate 78 82 Pulse Rate from SpO2 Sensor 78 82 Pulse Rhythm Pulse Strength Respiratory Rate 12 14 Respiratory Effort / Characteristics Respiratory Depth Respiratory Pattern Blood Pressure 143/85 H 166/96 H 132/87 Blood Pressure Mean 108 119 102 Blood Pressure Position Pulse Oximetry 97 96 Oxygen Delivery Method Sepsis Recent Fever Within 48 Hours Sepsis New/Unexplained Change in Mental Status Sepsis Action Taken by Group Home Medications Current Medication List: was personally reviewed by me Laboratory Data Attestation: I reviewed the patient's lab results. 07/21/23 18:51 07/21/23 18:51 Lab Results 07/21/23 07/21/23 Range/Units 18:51 22:50 WBC 13.88 H (4.8-10.8) K/ul RBC 5.78 (4.70-6.10) M/uL Hgb 15.1 (14.0-18.0) g/dl Hct 48.0 (42.0-52.0) % MCV 83.0 (80.0-100.0) fL MCH 26.1 (25.0-34.0) pg MCHC 31.5 L (32.0-36.0) g/dL RDW Std Deviation 42.2 (36.4-46.3) fL RDW Coeff of Ahsan 14.1 (11.5-14.5) % Plt Count 263 (130-400) K/uL MPV 10.1 (9.4-12.4) fL Immature Gran % (Auto) 0.4 % Neut % (Auto) 84.9 % Lymph % (Auto) 9.6 % Sierra % (Auto) 3.9 % Eos % (Auto) 0.9 % Baso % (Auto) 0.3 % Neut # (Auto) 11.78 H (1.40-6.50) K/uL Lymph # (Auto) 1.33 (1.20-3.40) K/uL Sierra # (Auto) 0.54 (0.11-0.59) K/uL Eos # (Auto) 0.13 (0.00-0.50) K/uL Baso # (Auto) 0.04 (0.00-0.20) K/uL Immature Gran # (Auto) 0.06 (0.01-0.20) K/uL Sodium 138 (136-145) mmol/L Potassium 4.0 (3.5-5.1) mmol/L Chloride 103 (98-107) mmol/L Carbon Dioxide 23 (21-32) mmol/L Anion Gap 12 H (3-11) BUN 20 (6-23) mg/dl Creatinine 0.81 (0.6-1.4) mg/dl Est Cr Clr Drug Dosing 112.2 ml/min Est GFR ( Amer) 112.0 ml/min Est GFR (Non-Af Amer) 96.6 ml/min BUN/Creatinine Ratio 24.7 H (10-20) Glucose 279 H (70-99(Fasting)) mg/dl Calcium 10.1 (8.6-10.3) mg/dl Magnesium 2.2 (1.7-2.4) mg/dl Total Bilirubin 1.1 H (0.2-1.0) mg/dl AST 10 L (13-39) U/L ALT 7 (7-52) U/L Alkaline Phosphatase 94 (34-104) U/L Total Protein 8.4 H (6.0-8.3) gm/dl Albumin 4.3 (3.4-5.0) gm/dl Globulin 4.1 H (2.5-4.0) gm/dl Albumin/Globulin Ratio 1.0 (0.9-2) TSH 2.692 (0.300-4.500) uIu/ml Urine Color Yellow Urine Appearance Clear (Clear) Urine pH 5.0 (4.5-7.5) Ur Specific [place] 1.039 H (1.000-1.030) Urine Protein Negative (Negative) Urine Glucose (UA) 3+ H (Negative) Urine Ketones 1+ H (Negative) Urine Blood Negative (Negative) Urine Nitrite Negative (Negative) Urine Bilirubin Negative (Negative) Urine Urobilinogen Negative (Negative) Ur Leukocyte Esterase Trace H (Negative) Urine WBC (Auto) >30 H (0-5) /hpf Urine RBC (Auto) 0-4 (0-4) /hpf U Hyaline Cast (Auto) 0 (0-5) /lpf U Epithel Cells (Auto) 5-10 H (0-5) /lpf Urine Bacteria (Auto) 1+ H (Negative) Urine Yeast Budding A (None Prsent) Administered Medications Discontinued Medications Sodium Chloride (Nss) 1,000 mls @ 999 mls/hr IV .Q1H1M HOANG Stop: 07/21/23 21:15 Last Infusion: 07/21/23 21:09 Dose: Infused Documented By: Admin: 07/21/23 20:07 Dose: 999 mls/hr Documented By: INDER Ceftriaxone Sodium (Rocephin) 2,000 mg in 50 mls @ 100 mls/hr IV NOW STA Stop: 07/21/23 23:35 Last Infusion: 07/22/23 00:02 Dose: Infused Documented By: Admin: 07/21/23 23:29 Dose: 100 mls/hr Documented By: ERM Discharge Plan Visit Data Chief Complaint: Infection ED Provider: Elliot Chao Discharge Problem: Skin infection, Open wound of left heel, Hyperglycemia, Noncompliance with medication regimen, Unable to care for self Forms Stand Alone Forms: My [facility] [employer]ensing Prescriptions Prescriptions: No Action amlodipine 5 mg tablet 0 mg PO DAILY Rx Instructions: Per family, the patient hasn't taken this medication in 7-8 months. However they do not want me to remove it. Original Directions: 5mg by mouth daily pantoprazole 40 mg tablet,delayed release (DR/EC) 0 mg PO QAM Rx Instructions: Per family, the patient hasn't taken this medication in 7-8 months. However they do not want me to remove it. Original Directions: 40mg by mouth daily olmesartan 40 mg tablet 0 mg PO QAM Rx Instructions: Per family, the patient hasn't taken this medication in 7-8 months. However they do not want me to remove it. Original Directions: 40mg by mouth daily dutasteride 0.5 mg capsule 0.5 mg PO QAM rosuvastatin 10 mg tablet 0 mg PO QPM Rx Instructions: Per family, the patient hasn't taken this medication in 7-8 months. However they do not want me to remove it. Original Directions: 10mg by mouth daily metoprolol tartrate 25 mg tablet 0 mg PO QAM Rx Instructions: Per family, the patient hasn't taken this medication in 7-8 months. However they do not want me to remove it. Original Directions: 25mg by mouth daily Jardiance 10 mg tablet 10 mg PO QAM clopidogrel 75 mg tablet 0 mg PO QAM Rx Instructions: Per family, the patient hasn't taken this medication in 7-8 months. However they do not want me to remove it. Original Directions: 75mg by mouth daily ammonium lactate 12 % lotion 1 applic TOPICAL UD PRN (Reason: dry skin on legs) vitamin B complex Tablet 0 tab PO DAILY Rx Instructions: Per family, the patient hasn't taken this medication in 7-8 months. However they do not want me to remove it. Original Directions: 1 tablet by mouth daily folic acid 1 mg Tablet 0 mg PO DAILY Rx Instructions: Per family, the patient hasn't taken this medication in 7-8 months. However they do not want me to remove it. Original Directions: 0.5mg by mouth daily Referrals Referrals: Jerry Pavon DO [Primary Care Provider] - Discharge Problem: Open wound of left heel Qualifiers: Encounter type: initial encounter Qualified Code(s): S91.302A - Unspecified open wound, left foot, initial encounter
[2023-07-21] MEDS: SODIUM CHLORIDE 0.9% 1,000 ML IV SCH (20:07)
[2023-07-21 20:21] LABS: Basophils # (auto) 0.04 K/uL (0.00-0.20); Basophils % (auto) 0.3 %; Eosinophils # (auto) 0.13 K/uL (0.00-0.50); Eosinophils % (auto) 0.9 %; Hemoglobin 15.1 g/dl (14.0-18.0); Immature Granulocytes # (auto) 0.06 K/uL (0.01-0.20); Immature Granulocytes % (auto) 0.4 %; Lymphocytes # (auto) 1.33 K/uL (1.20-3.40); Lymphocytes % (auto) 9.6 %; Mean Corpuscular Hemoglobin 26.1 pg (25.0-34.0); Mean Corpuscular Hgb Conc 31.5 g/dL (32.0-36.0); Mean Platelet Volume 10.1 fL (9.4-12.4); Monocytes # (auto) 0.54 K/uL (0.11-0.59); Monocytes % (auto) 3.9 %; Neutrophils # (auto) 11.78 K/uL (1.40-6.50); Neutrophils % (auto) 84.9 %; Platelet Count 263 K/uL (130-400); RDW Coefficient of Variation 14.1 % (11.5-14.5); RDW Standard Deviation 42.2 fL (36.4-46.3); Red Blood Count 5.78 M/uL (4.70-6.10); White Blood Count 13.88 K/ul (4.8-10.8)
[2023-07-21 20:40] LABS: Albumin Level 4.3 gm/dl (3.4-5.0); BUN Creatinine Ratio 24.7 (10-20); Bilirubin,Total 1.1 mg/dl (0.2-1.0); Calcium 10.1 mg/dl (8.6-10.3); Creatinine Clr Calc Pharmacy 112.2 ml/min; Est GFR (Non-African American) 96.6 ml/min; Globulin 4.1 gm/dl (2.5-4.0); Magnesium 2.2 mg/dl (1.7-2.4); Total Protein 8.4 gm/dl (6.0-8.3)
[2023-07-21 20:51] LABS: Thyroid Stimulating Hormone 2.692 uIu/ml (0.300-4.500)
[2023-07-21 23:05] LABS: Appearance Urine Clear (Clear); Bilirubin Urine Negative (Negative); Blood Urine Negative (Negative); Cast Urine Automated 0 /lpf (0-5); Color Urine Yellow; Glucose Urine UA 3+ (Negative); Ketones Urine 1+ (Negative); Leukocyte Esterase Urine Trace (Negative); Nitrite Urine Negative (Negative); Protein Urine Negative (Negative); RBC Urine Automated 0-4 /hpf (0-4); Specific Gravity Urine 1.039 (1.000-1.030); Urobilinogen Urine Negative (Negative); WBC Urine Automated >30 /hpf (0-5)
[2023-07-21] MEDS: cefTRIAXone SODIUM 2,000 MG/50 ML BAG IV STA (23:29)
[2023-07-21 23:57] LABS: Bacteria Urine Automated 1+ (Negative)
--- NOTE | 2023-07-22 01:28 | History & Physical Report ---
Date of Service July 22, 2023 Assessment & Plan (1) Left foot infection: Plan: 62-year-old male with past medical history significant for diabetes, hyperlipidemia, hypertension, BPH, history of stroke, history of hyponatremia, history of septic shock in June 2022 secondary to necrotizing fasciitis of the right foot and was intubated and also complicated with DKA and UTI and periapical abscesses and facial infection s/p extensive aggressive debridement of right foot and findings were consistent with gas gangrene, osteomyelitis with necrotizing fasciitis. Was requiring vasopressors. . Echo showed 45 to 50% grade 1 diastolic function. Manager Group felt consistent with demand ischemia in setting of septic shock. He also had hypernatremia sodium of 157. He was transferred in critical condition to [facility] for further debridement. Seems patient had below-knee amputation of the right leg at [place]. Currently living at home with his nephew. Patient states not ambulating since last 6 months. Since last 9 months is not taking any medications. Patient states he was put on antibiotics which caused a lot of abdominal pain and discomfort. He tried with stopping his other medications one after another which seems to helped his abdominal pain. And since then is not taking his regular medications except for medication for his BPH and Jardiance for his diabetes. Today was taken to his PCP office by his family and also found to have the sutures of the right below-knee amputation site still intact as patient has not followed up. And also has ulcers in the left foot and he was recommended to come to the ER and was brought in by the family. Family is concerned that he is not taking care of himself. May need placement. Patient is alert and oriented. Denies any headache. Denies chest pain. Denies shortness of breath. States appetite is okay. Eating okay. No nausea. No abdominal pain. Normal bowel and bladder movements. States not ambulated since 6 months. Hemodynamics are okay. Left foot infection Diabetic foot infection Placed on Rocephin which will be continued Wound care Monitor for response History of diabetes on Jardiance which will be held Sliding scale Follow HbA1c levels Hyperlipidemia Not taking medications Will follow lipid profile Hypertension Currently not taking medications Will monitor and adjust medications History of BPH Taking Avodart Monitor for urinary retention Questionable CHF EF 45 to 50% on echo done in June 2022 in setting of septic shock Will follow repeat echo If needed will consult cardiology DVT prophylaxis Lovenox Disposition Med/telemetry Full code History of Present Illness Chief Complaint: Left foot wound, noncompliance Primary Care Provider: Jerry Pavon DO 62-year-old male with past medical history significant for diabetes, hyperlipidemia, hypertension, BPH, history of stroke, history of hyponatremia, history of septic shock in June 2022 secondary to necrotizing fasciitis of the right foot and was intubated and also complicated with DKA and UTI and periapical abscesses and facial infection s/p extensive aggressive debridement of right foot and findings were consistent with gas gangrene, osteomyelitis with necrotizing fasciitis. Was requiring vasopressors. . Echo showed 45 to 50% grade 1 diastolic function. Manager Group felt consistent with demand ischemia in setting of septic shock. He also had hypernatremia sodium of 157. He was transferred in critical condition to [facility] for further debridement. Seems patient had below-knee amputation of the right leg at [place]. Currently living at home with his nephew. Patient states not ambulati ng since last 6 months. Since last 9 months is not taking any medications. Patient states he was put on antibiotics which caused a lot of abdominal pain and discomfort. He tried with stopping his other medications one after another which seems to helped his abdominal pain. And since then is not taking his regular medications except for medication for his BPH and Jardiance for his diabetes. Today was taken to his PCP office by his family and also found to have the sutures of the right below-knee amputation site still intact as patient has not followed up. And also has ulcers in the left foot and he was recommended to come to the ER and was brought in by the family. Family is concerned that he is not taking care of himself. May need placement. Patient is alert and oriented. Denies any headache. Denies chest pain. Denies shortness of breath. States appetite is okay. Eating okay. No nausea. No abdominal pain. Normal bowel and bladder movements. States not ambulated since 6 months. Hemodynamics are okay. Past medical history. As mentioned above Past surgical history. Right below-knee amputation. Social history. Quit smoking 2020. Smoked 1 pack a day for 41 years. No alcohol currently. No drug use currently. Family history. No family history on file Allergies Allergy/AdvReac Type Severity Reaction Status Date / Time aloe vera Allergy Unknown Unknown Verified 07/21/23 20:05 Sulfa (Sulfonamide AdvReac Mild Nausea Verified 07/21/23 20:05 Antibiotics) Home Medications Medication Instructions Recorded Confirmed Type ammonium lactate 12 % lotion 1 applic topical UD PRN dry skin 02/17/22 07/21/23 History on legs clopidogrel 75 mg tablet 0 mg PO QAM 02/17/22 07/21/23 History dutasteride 0.5 mg capsule 0.5 mg PO QAM 02/17/22 07/21/23 History empagliflozin 10 mg tablet 10 mg PO QAM 02/17/22 07/21/23 History (Jardiance) metoprolol tartrate 25 mg tablet 0 mg PO QAM 02/17/22 07/21/23 History olmesartan 40 mg tablet 0 mg PO QAM 02/17/22 07/21/23 History pantoprazole 40 mg tablet,delayed 0 mg PO QAM 02/17/22 07/21/23 History release rosuvastatin 10 mg tablet 0 mg PO QPM 02/17/22 07/21/23 History amlodipine 5 mg tablet 0 mg PO DAILY 06/23/22 07/21/23 History folic acid 1 mg tablet 0 mg PO DAILY 07/08/22 07/21/23 History vitamin B complex 0 tab PO DAILY 07/08/22 07/21/23 History 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- 02/27/22 S/P arteriogram of extremity Right leg, lithotripsy of proximal popliteal artery, mechanical closure of left femoral artery, 02/25/22 Diabetic ulcer of right fifth toe Cellulitis of toe of right foot Former smoker BPH (benign prostatic hyperplasia) Hyponatremia Mixed hyperlipidemia Essential hypertension Peripheral arterial disease Stroke July 2020 Right upper extremity weakness GERD (gastroesophageal reflux disease) Neuropathy Dyslipidemia Diabetes mellitus Obesity Osteomyelitis of right foot Surgical History S/P debridement Right foot debridement, wound vac application 02/21/22 History of incision and drainage partial excision of fifth ray of right foot, delayed primary closure 02/18/22 Family History Other Diabetes Social History Smoking Status: Current some day smoker Tobacco Type: Smokeless Tobacco (Dip or Chew) Second Hand Exposure: No; Do You Dip or Chew Tobacco: Yes; Tobacco Cessation Education Requested by Patient: Yes Hx Alcohol Use: Yes Hx Substance Use: No Preferred Language: [place] Citizen Communication Ability: Effective Regional Administrative Assistant Required: No Beliefs That Will Affect Care: None marital status: Single Current Living Situation: Family Current Living Situation Comment: nephew living with patient How many Children do You have: 9 Other Information That Helps Us Care for You: No Feels Safe at Home: Yes Safety Concerns: Feels Safe At This Time Assistive Devices: Glasses Review of Systems Review of Systems: All systems reviewed & are unremarkable except as noted in HPI & below Physical Exam Physical Exam: General- Not in distress Head- atraumatic Eyes- PERRL. ENT- oropharynx clear Neck- supple, no JVD. Lungs- clear to auscultation no wheezing or crackles. Heart- regular rhythm; no murmur, no gallop. Abdomen- normal bowel sounds, soft, nontender, no distension. Extremities- Right BKA. Amputation site sutures seen. No erythema or drainage seen. Ulcers seen on left heel. Neuro- alert, oriented PERRL, no facial palsy; no dysarthria; obeys simple commands Results & Data Results & Data Vital Signs (Past 12 Hours) Vital Signs Temp Pulse Resp BP Pulse Ox O2 Del Method 07/21/23 23:00 143/85 H 07/21/23 23:00 78 15 95 07/21/23 22:39 85 07/21/23 22:30 78 20 93 07/21/23 22:00 178/88 H 07/21/23 22:00 80 19 94 07/21/23 21:30 81 14 96 07/21/23 21:11 83 16 98 07/21/23 21:11 149/97 H 07/21/23 21:00 83 16 97 07/21/23 20:30 88 18 07/21/23 20:00 75 18 94 07/21/23 19:30 85 15 07/21/23 19:00 76 13 07/21/23 18:47 77 07/21/23 18:32 37.1 C 78 18 183/84 H 98 Room Air Diagnostic Findings Laboratory Results WBC 13.88 K/ul (4.8-10.8) H 07/21/23 18:51 RBC 5.78 M/uL (4.70-6.10) 07/21/23 18:51 Hgb 15.1 g/dl (14.0-18.0) 07/21/23 18:51 Hct 48.0 % (42.0-52.0) 07/21/23 18:51 MCV 83.0 fL (80.0-100.0) 07/21/23 18:51 MCH 26.1 pg (25.0-34.0) 07/21/23 18:51 MCHC 31.5 g/dL (32.0-36.0) L 07/21/23 18:51 RDW Std Deviation 42.2 fL (36.4-46.3) 07/21/23 18:51 RDW Coeff of Ahsan 14.1 % (11.5-14.5) 07/21/23 18:51 Plt Count 263 K/uL (130-400) 07/21/23 18:51 MPV 10.1 fL (9.4-12.4) 07/21/23 18:51 Immature Gran % (Auto) 0.4 % 07/21/23 18:51 Neut % (Auto) 84.9 % 07/21/23 18:51 Lymph % (Auto) 9.6 % 07/21/23 18:51 [place] % (Auto) 3.9 % 07/21/23 18:51 Eos % (Auto) 0.9 % 07/21/23 18:51 Baso % (Auto) 0.3 % 07/21/23 18:51 Neut # (Auto) 11.78 K/uL (1.40-6.50) H 07/21/23 18:51 Lymph # (Auto) 1.33 K/uL (1.20-3.40) 07/21/23 18:51 [place] # (Auto) 0.54 K/uL (0.11-0.59) 07/21/23 18:51 Eos # (Auto) 0.13 K/uL (0.00-0.50) 07/21/23 18:51 Baso # (Auto) 0.04 K/uL (0.00-0.20) 07/21/23 18:51 Immature Gran # (Auto) 0.06 K/uL (0.01-0.20) 07/21/23 18:51 Sodium 138 mmol/L (136-145) 07/21/23 18:51 Potassium 4.0 mmol/L (3.5-5.1) 07/21/23 18:51 Chloride 103 mmol/L (98-107) 07/21/23 18:51 Carbon Dioxide 23 mmol/L (21-32) 07/21/23 18:51 Anion Gap 12 (3-11) H 07/21/23 18:51 BUN 20 mg/dl (6-23) 07/21/23 18:51 Creatinine 0.81 mg/dl (0.6-1.4) 07/21/23 18:51 Est Cr Clr Drug Dosing 112.2 ml/min 07/21/23 18:51 Est GFR ( Amer) 112.0 ml/min 07/21/23 18:51 Est GFR (Non-Af Amer) 96.6 ml/min 07/21/23 18:51 BUN/Creatinine Ratio 24.7 (10-20) H 07/21/23 18:51 Glucose 279 mg/dl (70-99(Fasting)) H 07/21/23 18:51 Calcium 10.1 mg/dl (8.6-10.3) 07/21/23 18:51 Magnesium 2.2 mg/dl (1.7-2.4) 07/21/23 18:51 Total Bilirubin 1.1 mg/dl (0.2-1.0) H 07/21/23 18:51 AST 10 U/L (13-39) L 07/21/23 18:51 ALT 7 U/L (7-52) 07/21/23 18:51 Alkaline Phosphatase 94 U/L (34-104) 07/21/23 18:51 Total Protein 8.4 gm/dl (6.0-8.3) H 07/21/23 18:51 Albumin 4.3 gm/dl (3.4-5.0) 07/21/23 18:51 Globulin 4.1 gm/dl (2.5-4.0) H 07/21/23 18:51 Albumin/Globulin Ratio 1.0 (0.9-2) 07/21/23 18:51 TSH 2.692 uIu/ml (0.300-4.500) 07/21/23 18:51 Urine Color Yellow 07/21/23 22:50 Urine Appearance Clear (Clear) 07/21/23 22:50 Urine pH 5.0 (4.5-7.5) 07/21/23 22:50 Ur Specific [place] 1.039 (1.000-1.030) H 07/21/23 22:50 Urine Protein Negative (Negative) 07/21/23 22:50 Urine Glucose (UA) 3+ (Negative) H 07/21/23 22:50 Urine Ketones 1+ (Negative) H 07/21/23 22:50 Urine Blood Negative (Negative) 07/21/23 22:50 Urine Nitrite Negative (Negative) 07/21/23 22:50 Urine Bilirubin Negative (Negative) 07/21/23 22:50 Urine Urobilinogen Negative (Negative) 07/21/23 22:50 Ur Leukocyte Esterase Trace (Negative) H 07/21/23 22:50 Urine WBC (Auto) >30 /hpf (0-5) H 07/21/23 22:50 Urine RBC (Auto) 0-4 /hpf (0-4) 07/21/23 22:50 U Hyaline Cast (Auto) 0 /lpf (0-5) 07/21/23 22:50 U Epithel Cells (Auto) 5-10 /lpf (0-5) H 07/21/23 22:50 Urine Bacteria (Auto) 1+ (Negative) H 07/21/23 22:50 Urine Yeast Budding (None Prsent) A 07/21/23 22:50 ECG Additional Comments: ECG. Normal sinus rhythm with rate of 77. Nonspecific T wave abnormalities. Code Status & VTE Plan VTE Prophylaxis Plan VTE Prophylaxis will be ordered: Yes
[2023-07-22] MEDS ORDERED: CARBOHYDRATES FOR HYPOGLYCEMIA PO PRN (03:28)
[2023-07-22] MEDS ORDERED: GLUCAGON FOR INJ 1 MG VIAL SQ PRN (03:28)
[2023-07-22] MEDS ORDERED: NITROGLYCERIN SL 0.4 MG/TAB TAB SL PRN (03:28)
[2023-07-22] MEDS ORDERED: GLUCOSE 10 TAB/TUBE PO PRN (03:28)
[2023-07-22] MEDS ORDERED: DEXTROSE 50% 50 ML SYRINGE IV PRN (03:28)
[2023-07-22] MEDS ORDERED: GLUCOSE 40% GEL 15 GM TUBE PO PRN (03:28)
[2023-07-22] MEDS: SODIUM CHLORIDE 0.9% 1,000 ML IV SCH (05:12)
[2023-07-22 07:37] LABS: Basophils # (auto) 0.03 K/uL (0.00-0.20); Basophils % (auto) 0.3 %; Eosinophils # (auto) 0.11 K/uL (0.00-0.50); Hematocrit (blood only) 47.9 % (42.0-52.0); Hemoglobin 14.5 g/dl (14.0-18.0); Immature Granulocytes # (auto) 0.03 K/uL (0.01-0.20); Immature Granulocytes % (auto) 0.3 %; Lymphocytes % (auto) 14.5 %; Mean Corpuscular Hemoglobin 25.3 pg (25.0-34.0); Mean Corpuscular Hgb Conc 30.3 g/dL (32.0-36.0); Mean Corpuscular Volume 83.6 fL (80.0-100.0); Mean Platelet Volume 9.9 fL (9.4-12.4); Monocytes # (auto) 0.63 K/uL (0.11-0.59); Monocytes % (auto) 5.7 %; Neutrophils # (auto) 8.67 K/uL (1.40-6.50); Neutrophils % (auto) 78.2 %; Platelet Count 246 K/uL (130-400); RDW Coefficient of Variation 14.1 % (11.5-14.5); RDW Standard Deviation 42.5 fL (36.4-46.3); Red Blood Count 5.73 M/uL (4.70-6.10); White Blood Count 11.07 K/ul (4.8-10.8)
[2023-07-22 08:00] LABS: Calcium 9.4 mg/dl (8.6-10.3); Magnesium 2.2 mg/dl (1.7-2.4); Potassium 4.1 mmol/L (3.5-5.1)
[2023-07-22 08:06] LABS: BUN Creatinine Ratio 27.5 (10-20); Creatinine Clr Calc Pharmacy 131.8 ml/min; Est GFR (African American) 119.6 ml/min; Est GFR (Non-African American) 103.2 ml/min
[2023-07-22] MEDS: ENOXAPARIN INJ 40 MG/0.4 ML SYR SQ SCH (08:31)
[2023-07-22] MEDS: FINASTERIDE 5 MG TAB PO SCH (08:31)
[2023-07-22 08:39] LABS: Estimated Average Glucose 240 mg/dl
[2023-07-22] MEDS: INSULIN ASPART PER UNIT CHARGE SC SCH (09:22)
--- OUTSIDE RECORDS SUMMARY | 2023-07-22 11:50 | External Medical Summary | Summary of Care ---
Author Name Unknown Organization [facility] Address [address] [place] [address] Phone [phone] Care Team Providers Care Net Mender Name Role Phone Unavailable Primary Care Provider Unavailabl e Reason for Visit * Reason Comments eRx-Medication Refill Encounter Details Date Type Department Care Team (Late st Contact Info) Description 04/20/2023 Refill [facility] [address] [place] [id number] Jerry Pavon, DO [address] [place] [id number] Type 2 diabetes mellitus with hemoglobin A1c goal of less than 7.0% ([facility]) Allergies Active Allergy Reactions Criticality Noted Date Comments Benzocaine 09/13/2021 documented as of this encounter (statuses as of 04/23/2023) Medications Medication Sig Dispensed Refills Start Date End Date Status Opurity B12/Folic Acid 1000-200 MCG Oral Tablet Take by mouth 1 Tablet daily . 90 Tablet 3 2 Active Ammonium Lactate 12 % External LotionIndications:T ype 2 diabetes mellitus with diabetic dermatitis, without long-term current use of insulin (HCC) Apply topically to affected area as needed for Dry Skin. Apply to legs 400 g 0 2 Active Metoprolol Tartrate 25 MG Oral Tablet (Lopressor)Indicati ons:HTN, goal below 130/80 Take 1 tablet in am 180 Tablet 1 2 Active Olmesartan Medoxomil 40 MG Oral Tablet (Benicar) Take by mouth 1 Tablet in the morning. 90 Tablet 3 2 Active Rosuvastatin Calcium 10 MG Oral Tablet (Crestor)Indication s:Mixed hyperlipidemia Take by mouth 1 Tablet in the morning. 90 Tablet 3 2 Active Esomeprazole Magnesium 20 MG Oral Packet (NexIUM)Indications :Gastroesophageal reflux disease without esophagitis Take by mouth 20 mg daily before breakfast . 30 Each 12 2 Active Additional Information Patient not taking.Reported on 04/24/2022 Pantoprazole Sodium 40 MG Oral Packet (Protonix) Administer 40 mg into feeding tube in the morning. 0 Active Clopidogrel Bisulfate 75 MG Oral Tablet (pLAVix)Indications :Cerebrovascular disease, arteriosclerotic, post-stroke Take by mouth 1 Tablet in the morning. 90 Tablet 3 2 Active amLODIPine Besylate 5 MG Oral Tablet (Norvasc)Indication s:Peripheral artery disease (HCC),HTN, goal below 130/80 Take 1 Tablet by mouth in the morning. 90 Tablet 3 2 Active Dutasteride 0.5 MG Oral Capsule (Avodart) TAKE ONE CAPSULE BY MOUTH EVERY MORNING 90 Capsule 1 3 Active Jardiance 10 MG Oral Tablet (Empagliflozin)[place] cations:Type 2 diabetes mellitus with hemoglobin A1c goal of less than 7.0% (HCC) TAKE ONE TABLET BY MOUTH IN THE MORNING 90 Tablet 1 3 Active Jardiance 10 MG Oral Tablet (Empagliflozin)[place] cations:Type 2 diabetes mellitus with hemoglobin A1c goal of less than 7.0% (HCC) TAKE ONE TABLET BY MOUTH IN THE MORNING 90 Tablet 1 3 04/23/20 23 Discontinued documented as of this encounter (statuses as of 04/23/2023) Active Problems Problem Noted Date Diagnosed Date Diabetic ulcer of right fifth toe 02/17/2022 Cellulitis of toe of right foot 02/17/2022 Type 2 diabetes mellitus wit h diabetic polyneuropathy, without long-term current use of insulin 10/22/2021 Hyponatremia 09/13/2021 BPH (benign prostatic hyperplasia) 09/13/2021 Former smoker 09/13/2021 Personal history of stroke with residual effects 03/05/2020 Type 2 diabetes mellitus wit h hemoglobin A1c goal of less than 7.0% 03/05/2020 Essential hypertension 03/05/2020 Mixed hyperlipidemia 03/05/2020 documented as of this encounter (statuses as of 04/23/2023) Social History Tobacco Use Types Packs/Day Years Used Date Smoking Tobacco: Former Cigarettes 1 0 09/22/1979 - 09/21/2020 Smokeless Tobacco: Former Chew Alcohol Use Standard Drinks/Week Comments Not Currently 0 (1 standard drink = 0.6 oz pur e alcohol) PHQ-2 Answer Date Recorded PHQ Adult Total Score 0 11/12/2021 Hunger Vital Sign Answer Date Recorded Within the past 12 months, y ou worried that your food would run out before you got the money to buy more. Never true 02/18/20 22 Within the past 12 months, t he food you bought just didn't last and you didn't have money to get more. Never true 02/17/2022 Sex and Gender Information Value Date Recorded Sex Assigned at Not on file Gender Identity Not on file Sexual Orientation Not on file Job Start Date Occupation Industry Not on file Not on file Not on file documented as of this encounter Miscellaneous Notes * Telephone Encounter - Soham Jarquin DO - 04/23/2023 10:59 AM EST Signed Prescriptions: Disp Refills Jardiance 10 MG Oral Tablet (Empagliflozin)90 Tab*1 Sig: TAKE ONE TABLET BY MOUTH IN THE MORNINGAuthorizing Provider: SOHAM JARQUIN * Telephone Encounter - Rosalinda Soto LPN - 04/23/2023 10:36 AM ESTPending Prescriptions: Disp Refills Jardiance 10 MG Oral Tablet [Pharmacy Med *90 Tab*1 Sig: TAKE ONE TABLET BY MOUTH IN THE MORNING * Telephone Encounter - Rosalinda Soto LPN - 04/23/2023 10:35 AM EST DOD please review med refill request below and determine if refill appropriate. Pt made aware appt to re est needs scheduled, not scheduled yet. * Telephone Encounter - Dona Moreland cleaning custodian - 04/22/2023 3:42 PM ESTPending Prescriptions: Disp Refills Jardiance 10 MG Oral Tablet [Pharmacy Med *90 Tab*1 Sig: TAKE ONE TABLET BY MOUTH IN THE MORNING * Telephone Encounter - Dona Moreland cleaning custodian - 04/22/2023 3:41 PM EST Received message from [facility] regarding patient needing appointment. Placed call to patient to advise. Left message on voicemail to call back and schedule appointment. Thank you, Dona Moreland, [facility] [place] Operator II [facility] ([facility] (formerly [facility]) 04/22/2023,3:41 PM * Telephone Encounter - Ulices Dominguez, [facility] - 04/21/2023 2:55 PM ESTPending Prescriptions: Disp Refills Jardiance 10 MG Oral Tablet [Pharmacy Med *90 Tab*1 Sig: TAKE ONE TABLET BY MOUTH IN THE MORNING * Telephone Encounter - Ulices Dominguez [facility] - 04/21/2023 2:52 PM EST Please contact patient so that an appointment can be scheduled with his PRIMARY CARE provider before this refill can be authorized. After contacting patient, please forward request to the provider they schedule with (if unable to reach, use [facility]). Last Visit: 04/24/2022 (in office), Visit date not found (telemedicine) Next Visit: Visit date not found Letter sent 03-05-23 informing patient that PCP is no longer at [facility] and that he needs to schedule with a new PCP. Pending Prescriptions: Disp Refills Jardiance 10 MG Oral Tablet (Empagliflozi*90 Tab*1 Sig: TAKE ONE TABLET BY MOUTH IN THE MORNING Last Visit: 04/24/2022 (in office), Visit date not found (telemedicine) Next Visit: Visit date not found If no future appointments scheduled, and last appointment is greater than a year ago, please schedule patient for a follow-up appointment Last date the medication was ordered: 09-30-22 Pharmacy: [address] Is this request for a controlled substance? No Urine Drug Screen:No results found for this or any previous visit. Patient Phone Numbers Labs: Lab Results Component Value Date/Time CREAT 0.9 08/01/2022 05:55 AM CREAT 0.82 04/18/2022 12:00 AM CREAT 0.93 06/27/2021 05:48 AM POTASSIUM 4.1 08/01/2022 05:55 AM POTASSIUM 3.1 (A) 04/18/2022 12:00 AM POTASSIUM 4.0 06/23/2021 07:52 AM LDLCALC 84 10/22/2021 04:14 PM LDLCALC 149 02/24/2020 04:48 AM ALT 29 10/22/2021 04:14 PM HGBA1C 6.7 (H) 09/13/2021 04:42 PM HGBA1C 7.5 (H) 06/21/2021 06:00 AM Ulices Del Valle, Haile.Ph. Clinical Pharmacist [facility] [phone] ext [phone] 04/21/2023,2:53 PM documented in this encounter Plan of Treatment Health Maintenance Due Date Last Done Comments COVID-19 Vaccine (#1) 05/23/1961 Pneumococcal Vaccine: Pediatrics (0 to 5 Years) and At-Risk Patients (6 to 64 Years) (1 - PCV) 1968 HIV Screening 1977 Diabetic Foot Exam 1980 Hepatitis C Screening 1980 Cologuard 11/21/2007 Colonoscopy 11/21/2007 Colorectal Cancer Screening 11/21/2007 Fecal Occult Blood Test 11/21/2007 Sigmoidoscopy 11/21/2007 Zoster Vaccines (1 of 2) 2012 HbA1c 03/16/2022 09/13/2021, 022 08/2021, 06/19/2020, Additional history exists Albumin/Creatinine Ratio 10/23/2022 10/23/2021 Depression Screening 11/12/2022 11/12/2021 Diabetic Eye Exam 11/12/2022 11/12/2021 Hepatitis B (1 of 3 - Risk 3-dose series) 2022 Influenza Vaccine (FLU shot) (#1) 2022 GFR 08/02/2023 08/01/2022, 06/27, 04/18/2022, Additional history exists Lipid Panel 10/22/2026 10/22/2021, 02/24/2020 DTaP,Tdap,and Td Vaccines (2 - Td or Tdap) 06/05/2031 06/05/2021 GARDASIL-HPV IMMUNIZATION SERIES Aged Out No longer eligible based on patient's age to complete this topic MENINGOCOCCAL (MENACTRA/MENVEO) Aged Out No longer eligible based on patient's age to complete this topic documented as of this encounter Medical Devices Not on filedocumented as of this encounter Visit Diagnoses Diagnosis Type 2 diabetes mellitus with hemoglobin A1c goal of less than 7.0% (HCC) documented in this encounter
--- OUTSIDE RECORDS SUMMARY | 2023-07-22 11:50 | External Medical Summary | Summary of Care ---
Author Name Unknown Organization [facility] Address [address] [place] [address] Phone [phone] Care Team Providers Care Postdoctoral Fellow Name Role Phone Jerry Pavon DO Primary Care Provider [phone] Reason for Visit * Reason Comments eRx-Medication Refill Encounter Details Date Type Department Care Team Description 01/27/2023 Refill Family Practice [facility] [address] [place] [address] Jerry Pavon DO [address] [place] [address] Allergies Active Allergy Reactions Severity Noted Date Comments Benzocaine 09/13/2021 documented as of this encounter (statuses as of 01/28/2023) Medications Medication Sig Dispensed Refills Start Date [...] the morning. 90 Tablet 3 2 Active Jardiance 10 MG Oral Tablet (Empagliflozin)Fiorella cations:Type 2 diabetes mellitus with hemoglobin A1c goal of less than 7.0% (HCC) TAKE ONE TABLET BY MOUTH IN THE MORNING 90 Tablet 1 3 Active Dutasteride 0.5 MG Oral Capsule (Avodart) TAKE ONE CAPSULE BY MOUTH EVERY MORNING 90 Capsule 1 3 Active Dutasteride 0.5 MG Oral Capsule (Avodart) TAKE ONE CAPSULE BY MOUTH EVERY MORNING 90 Capsule 0 3 01/29/20 23 Discontinued documented as of this encounter (statuses as of 01/28/2023) Active Problems Problem Noted Date Diabetic ulcer of right fifth toe 2021 Cellulitis of toe of right foot 02/18/20 22 Type 2 diabetes mellitus wit h diabetic polyneuropathy, without long-term current use of insulin 10/22/2021 Hyponatremia 09/13/2021 BPH (benign prostatic hyperplasia) 09/13 Former smoker 09/13/2021 Personal history of stroke with residual effects 03/05/2020 Type 2 diabetes mellitus with hemoglobin A1c goal of less than 7.0% 03/05/2020 Essential hypertension 03/05/2020 Mixed hyperlipidemia 03/05/2020 documented as of this encounter (statuses as of 01/28/2023) Social History Tobacco Use Types Packs/Day Years Used Date Smoking Tobacco: Former Cigarettes 1 0 09/22/1979 - 09/21/2020 Smokeless Tobacco: Former Chew Alcohol Use Standard Drinks/Week Comments Not Currently 0 (1 standard drink = 0.6 oz pur e alcohol) Food Insecurity Answer Date Recorded Within the past 12 months, y ou worried that your food would run out before you got money to buy more. Never true 02/17/2022 Within the past 12 months, t he food you bought just didn't last and you didn't have money to get more. Never true 02/17/2022 Sex Assigned at Date Recorded Not on file Job Start Date Occupation Industry Not on file Not on file Not on file documented as of this encounter Miscellaneous Notes * Telephone Encounter - Brianna Peña RPh - 01/28/2023 12:18 PM EDTSigned Prescriptions: Disp Refills Dutasteride 0.5 MG Oral Capsule (Avodart) 90 Cap*1 Sig: TAKE ONECAPSULE BY MOUTH EVERY MORNINGAuthorizing Provider: Shilpa PAVON User: BRIANNA PEÑA documented in this encounter Plan of Treatment [...] (1 of 2) 2012 HbA1c 03/16/2022 09/13/2021, 05/29, 06/19/2020, Additional history exists Albumin/Creatinine Ratio 10/23/2022 10/23/2021 DIABETES-EYE EXAM 11/12/2022 11/12/2021 Depression Screening 11/12/2022 11/12/2021 Influenza Vaccine (FLU shot) (#1) 2022 GFR 08/02/2023 08/01/2022, 06/27, 04/18/2022, Additional history exists Lipid Panel 10/22/2026 10/22/2021, 02/24/2020 DTaP,Tdap,and Td Vaccines (2 - Td or Tdap) 06/05/2031 06/05/2021 GARDASIL-HPV IMMUNIZATION SERIES Aged Out No longer eligible based on patient's age to complete this topic Hepatitis B Aged Out No longer eligi ble based on patient's age to complete this topic MENINGOCOCCAL (MENACTRA/MENVEO) Aged Out No longer eligible based on patient's age to complete this topic documented as of this encounter Medical Devices Not on filedocumented as of this encounter Care Teams Postdoctoral Fellow Relationship Specialty Start Date End Date Jerry Pavon DO [address] [place] [address] PCP - General Family Medicine 01/27/22 documented as of this encounter
--- OUTSIDE RECORDS SUMMARY | 2023-07-22 11:50 | External Medical Summary | Summary of Care ---
Author Name Unknown Organization [facility] Address [address] [place] [address] Phone [phone] Care Team Providers Care Primer Inspector Name Role Phone Unavailable Primary Care Provider Unavailabl e Reason for Visit * Reason Comments eRx-Medication Refill Encounter Details Date Type Department Care Team (Late st Contact Info) Description 05/23/2023 Refill Family Practice [facility] [address] [place] [address] Jerry Pavon, DO [address] [place] [address] Peripheral artery disease (HCC); HTN, goal below 130/80 Allergies Active Allergy Reactions Criticality Noted Date Comments Benzocaine 09/13/2021 documented as of this encounter (statuses as of 06/19/2023) Medications Medication Sig Dispensed Refills Start Date End Date Status Opurity B12/Folic Acid 1000-200 MCG Oral Tablet Take by mouth 1 Tablet daily . 90 Tablet 3 09/17/2021 Active Ammonium Lactate 12 % External LotionIndications:Ty pe 2 diabetes mellitus with diabetic dermatitis, without long-term current use of insulin (HCC) Apply topically to affected area as needed for Dry Skin. Apply to legs 400 g 0 11/12/2021 Active Metoprolol Tartrate 25 MG Oral Tablet (Lopressor)Indicatio ns:HTN, goal below 130/80 Take 1 tablet in am 180 Tablet 1 01/27/2022 Active Olmesartan Medoxomil 40 MG Oral Tablet (Benicar) Take by mouth 1 Tablet in the morning. 90 Tablet 3 01/27/2022 Active Rosuvastatin Calcium 10 MG Oral Tablet (Crestor)Indications :Mixed hyperlipidemia Take by mouth 1 Tablet in the morning. 90 Tablet 3 01/27/2022 Active Esomeprazole Magnesium 20 MG Oral Packet (NexIUM)Indications: Gastroesophageal reflux disease without esophagitis Take by mouth 20 mg daily before breakfast . 30 Each 12 01/30/2022 Active Additional Information Patient not taking.Reported on 04/24/2022 Pantoprazole Sodium 40 MG Oral Packet (Protonix) Administer 40 mg into feeding tube in the morning. 0 Active Clopidogrel Bisulfate 75 MG Oral Tablet (pLAVix)Indications: Cerebrovascular disease, arteriosclerotic, post-stroke Take by mouth 1 Tablet in the morning. 90 Tablet 3 02/17/2022 Active amLODIPine Besylate 5 MG Oral Tablet (Norvasc)Indications :Peripheral artery disease (HCC),HTN, goal below 130/80 Take 1 Tablet by mouth in the morning. 90 Tablet 3 04/24/2022 Active Dutasteride 0.5 MG Oral Capsule (Avodart) TAKE ONE CAPSULE BY MOUTH EVERY MORNING 90 Capsule 1 01/28/2023 Active Jardiance 10 MG Oral Tablet (Empagliflozin)Indic ations:Type 2 diabetes mellitus with hemoglobin A1c goal of less than 7.0% ([facility]) TAKE ONE TABLET BY MOUTH IN THE MORNING 90 Tablet 1 04/23/2023 Active documented as of this encounter (statuses as of 06/19/2023) Active Problems Problem Noted Date Diagnosed Date [...] as of this encounter (statuses as of 06/19/2023) Social History Tobacco Use Types Packs/Day Years Used Date Smoking Tobacco: Former Cigarettes 1 41 0 09/22/1979 - 09/21/2020 Smokeless Tobacco: Former [...] money to buy more. Never true 02/18/20 Within the past 12 months, t he [...] encounter Miscellaneous Notes * Telephone Encounter - Wendy Young LPN - 06/19/2023 7:43 AM ESTRefused Prescriptions: Disp Refills amLODIPine Besylate 5 MG Oral Tablet (Norv*90 Tab*0 Sig: TAKE ONE TABLET BY MOUTH IN THE MORNINGRefused By: WENDY YOUNG for Refusal: Appt. Required, please call patient * Telephone Encounter - Wendy Young LPN - 06/19/2023 7:43 AM EST Letter sent * Telephone Encounter - Patrice Blood OSA - 06/18/2023 9:14 AM ESTPending Prescriptions: Disp Refills amLODIPine Besylate 5 MG Oral Tablet (Norv*90 Tab*0 Sig: TAKE ONE TABLET BY MOUTH IN THE MORNING * Telephone Encounter - Patrice Blood OSA - 06/18/2023 9:14 AM EST MyG sent to pt * Telephone Encounter - Patrice Blood OSA - 06/12/2023 11:46 AM EST LMOM for pt to call back and schedule with new PCP * Telephone Encounter - Wendy Young LPN - 05/25/2023 3:13 PM ESTPending Prescriptions: Disp Refills amLODIPine Besylate 5 MG Oral Tablet (Norv*90 Tab*0 Sig: TAKE ONE TABLET BY MOUTH IN THE MORNING * Telephone Encounter - Wendy Young LPN - 05/25/2023 3:12 PM EST This was a Sanna pt Please assist pt to schedule with a new PCP for med refills. * Telephone Encounter - Dona Moreland PHARM Tech - 05/25/2023 3:12 PM ESTPending Prescriptions: Disp Refills amLODIPine Besylate 5 MG Oral Tablet (Norv*90 Tab*0 Sig: TAKE ONE TABLET BY MOUTH IN THE MORNING * Telephone Encounter - Dona Moreland PHARM Tech - 05/25/2023 3:11 PM EST Received message from [facility] regarding patient needing appointment. Placed call to patient to advise. Pt was agreeable to set up appointment but did not want to schedule at this time. Patient advised they will call back to set up appointment. They will get pt scheduled, pt had a leg removed last year which makes it harder for him to get around. Thank you, Dona Moreland [facility] Mechanical Assembly Technician II [facility] ([facility]) (formerly Telepharmacy) 05/25/2023,3:11 PM * Telephone Encounter - Marielos Coelho RP - 05/24/2023 2:52 PM ESTPending Prescriptions: Disp Refills amLODIPine Besylate 5 MG Oral Tablet (Norv*90 Tab*0 Sig: TAKE ONE TABLET BY MOUTH IN THE MORNING * Telephone Encounter - Marielos Coelho [facility] - 05/24/2023 2:51 PM EST 3rd attempt Please contact patient so that an appointment can be scheduled with his PRIMARY CARE provider before this refill can be authorized. After contacting patient, please forward request to the provider they schedule with (if unable to reach, use [facility]). Last Visit: 04/24/2022 (in office), Visit date not found (telemedicine) Next Visit: Visit date not found Marielos Del Valle PharmD Clinical Pharmacist [facility] ([facility]) [phone] 05/24/2023, 2:51 PM documented in this encounter Plan of Treatment Health Maintenance Due Date Last Done Comments Pneumococcal Vaccine: Pediatrics (0 to 5 Years) and At-Risk Patients (6 to 64 Years) (1 of 2 - PCV) 1968 HIV Screening 1977 Diabetic Foot Exam 1980 Hepatitis C Screening 1980 Cologuard 11/21/2007 Colonoscopy 11/21/2007 Colorectal Cancer Screening 11/21/2007 Fecal Occult Blood Test 11/21/2007 Sigmoidoscopy 11/21/2007 LUNG CANCER SCREENING - USE SMARTSET 86693 2012 Zoster Vaccines (1 of 2) 2012 HbA1c 03/16/2022 09/13/2021, 05/29, 02/11/2021, Additional history exists Albumin/Creatinine Ratio 10/23/2022 10/23/2021 Depression Screening 11/12/2022 11/12/2021 Diabetic Eye Exam 11/12/2022 11/12/2021 COVID-19 Vaccine ( - 2022- season) 2022 Influenza Vaccine (FLU shot) (#1) 2022 GFR 08/02/2023 08/01/2022, 03/04/2022, 04/18/2022, Additional history exists Lipid Panel 10/22/2026 [...] as of this encounter Visit Diagnoses Diagnosis Peripheral artery disease (HCC) Peripheral vascular disease, unspecified HTN, goal below 130/80 Unspecified essential hypertension documented in this encounter
--- OUTSIDE RECORDS SUMMARY | 2023-07-22 11:50 | External Medical Summary | Summary of Care ---
Author Name Unknown Organization [facility] Address [address] [facility] [place] [address] Phone [phone] Care Team Providers Care Mine Expert Name Role Phone Jerry Pavon DO Primary Care Provider [phone] Reason for Visit * Reason Comments eRx-Medication Refill Encounter Details Date Type Department Care Team (Late st Contact Info) Description 03/01/2023 Refill Family Practice [facility] [address] [facility] [place] [address] Jerry Pavon DO [address] [place] [address] Cerebrovascular disease, arteriosclerotic, post-stroke; Mixed hyperlipidemia; HTN, goal below 130/80 Allergies Active Allergy Reactions Criticality Noted Date Comments Benzocaine 09/13/2021 documented as of this encounter (statuses as of 03/05/2023) Medications Medication Sig Dispensed Refills Start Date [...] the morning. 90 Tablet 3 04/24/2022 Active Jardiance 10 MG Oral Tablet (Empagliflozin)Indic ations:Type 2 diabetes mellitus with hemoglobin A1c goal of less than 7.0% (HCC) TAKE ONE TABLET BY MOUTH IN THE MORNING 90 Tablet 1 09/30/2022 Active Dutasteride 0.5 MG Oral Capsule (Avodart) TAKE ONE CAPSULE BY MOUTH EVERY MORNING 90 Capsule 1 01/28/2023 Active documented as of this encounter (statuses as of 03/05/2023) Active Problems Problem Noted Date Diagnosed Date [...] as of this encounter (statuses as of 03/05/2023) Social History Tobacco Use Types Packs/Day Years [...] encounter Miscellaneous Notes * Telephone Encounter - Rosalinda Rivera LPN - 03/05/2023 11:59 AM ESTRefused Prescriptions: Disp Refills Clopidogrel Bisulfate 75 MG Oral Tablet (p*90 Tab*0 Sig: TAKE ONE TABLET BY MOUTH IN THE MORNINGRefused By: Pardeep RIVERA for Refusal: Other (comment below) Rosuvastatin Calcium 10 MG Oral Tablet (Cr*90 Tab*0 Sig: TAKE ONE TABLET BY MOUTH EVERY MORNINGRefused By: Pardeep RIVERA for Refusal: Other (comment below) Metoprolol Tartrate 25 MG Oral Tablet (Lop*180 Ta*0 Sig: TAKE ONE TABLET BY MOUTH EVERY MORNINGRefused By: Pardeep RIVERA for Refusal: Other (comment below) Olmesartan Medoxomil 40 MG Oral Tablet (Be*90 Tab*0 Sig: TAKE ONE TABLET BY M OUTH EVERY MORNINGRefused By: Pardeep RIVERA for Refusal: Other (comment below) * Telephone Encounter - Alix Jarquin - 03/05/2023 9:53 AM ESTPending Prescriptions: Disp Refills Clopidogrel Bisulfate 75 MG Oral Tablet (p*90 Tab*0 Sig: TAKE ONE TABLET BY MOUTH IN THE MORNING Rosuvastatin Calcium 10 MG Oral Tablet (Cr*90 Tab*0 Sig: TAKE ONE TABLET BY MOUTH EVERY MORNING Metoprolol Tartrate 25 MG Oral Tablet (Lop*180 Ta*0 Sig: TAKE ONE TABLET BY MOUTH EVERY MORNING Olmesartan Medoxomil 40 MG Oral Tablet (Be*9 0 Tab*0 Sig: TAKE ONE TABLET BY MOUTH EVERY MORNING * Telephone Encounter - Alix Jarquin - 03/05/2023 9:51 AM EST LM for pt to call back for an appt with a new PCP Letter also sent * Telephone Encounter - Rosalinda Rivera LPN - 03/02/2023 2:48 PM ESTPending Prescriptions: Disp Refills Clopidogrel Bisulfate 75 MG Oral Tablet (p*90 Tab*0 Sig: TAKE ONE TABLET BY MOUTH IN THE MORNING Rosuvastatin Calcium 10 MG Oral Tablet (Cr*90 Tab*0 Sig: TAKE ONE TABLET BY MOUTH EVERY MORNING Metoprolol Tartrate 25 MG Oral Tablet (Lop*180 Ta*0 Sig: TAKE ONE TABLET BY MOUTH EVERY MORNING Olmesartan Medoxomil 40 MG Oral Tablet (Be*9 0 Tab*0 Sig: TAKE ONE TABLET BY MOUTH EVERY MORNING * Telephone Encounter - Dona Moreland systems consultant - 03/02/2023 2:13 PM ESTPending Prescriptions: Disp Refills Clopidogrel Bisulfate 75 MG Oral Tablet (p*90 Tab*0 Sig: TAKE ONE TABLET BY MOUTH IN THE MORNING Rosuvastatin Calcium 10 MG Oral Tablet (Cr*90 Tab*0 Sig: TAKE ONE TABLET BY MOUTH EVERY MORNING Metoprolol Tartrate 25 MG Oral Tablet (Lop*180 Ta*0 Sig: TAKE ONE TABLET BY MOUTH EVERY MORNING Olmesartan Medoxomil 40 MG Oral Tablet (Be*9 0 Tab*0 Sig: TAKE ONE TABLET BY MOUTH EVERY MORNING * Telephone Encounter - Dona Moreland systems consultant - 03/02/2023 2:12 PM EST Received message from [facility] regarding patient needing appointment and labs. Placed call to patient toadvise. Left message on voicemail advising of required labs and to call back for an appointment. Thank you, Dona Moreland [facility] Electroneurodiagnostic Technologist II [facility] ([facility]) (formerly Telepharmacy) 03/02/2023,2:12 PM * Telephone Encounter - Taina Valladares [facility] - 03/02/2023 2:04 PM ESTPending Prescriptions: Disp Refills Clopidogrel Bisulfate 75 MG Oral Tablet (p*90 Tab*0 Sig: TAKE ONE TABLET BY MOUTH IN THE MORNING Rosuvastatin Calcium 10 MG Oral Tablet (Cr*90 Tab*0 Sig: TAKE ONE TABLET BY MOUTH EVERY MORNING Metoprolol Tartrate 25 MG Oral Tablet (Lop*180 Ta*0 Sig: TAKE ONE TABLET BY MOUTH EVERY MORNING Olmesartan Medoxomil 40 MG Oral Tablet (Be*9 0 Tab*0 Sig: TAKE ONE TABLET BY MOUTH EVERY MORNING * Telephone Encounter - Taina Valladares [facility] - 03/02/2023 2:02 PM EST Please contact patient to schedule office visit with PRIMARY CARE and advise of labs ordered for blood draw.. Recommend patient to fast if able for labs. Patient may still have water and regular medications. Advise to obtain labs before refills will be approved. Last Visit: 04/24/2022 (in office), Visit date not found (telemedicine) Next Visit: Visit date not found After contacting patient, please forward request to the provider they schedule with (if unable to reach, use [facility]). Previous provider is no longer with clinic Pending Prescriptions: Disp Refills Clopidogrel Bisulfate 75 MG Oral Tablet (*90 Tab*0 Sig: TAKE ONE TABLET BY MOUTH IN THE MORNING Rosuvastatin Calcium 10 MG Oral Tablet (C*90 Tab*0 Sig: TAKE ONE TABLET BY MOUTH EVERY MORNING Metoprolol Tartrate 25 MG Oral Tablet (Lo*180 Ta*0 Sig: TAKE ONE TABLET BY MOUTH EVERY MORNING Olmesartan Medoxomil 40 MG Oral Tablet (B*90 Tab*0 Sig: TAKE ONE TABLET BY MOUTH EVERY MORNING Thank you, Taina Valladares [facility] Clinical Pharmacist [facility] ([facility]) (formerly Telepharmacy) 03/02/23 2:02 PM [phone] * Telephone Encounter - Taina Valladares RP - 03/02/2023 2:01 PM EST Did you pend patient's preferred pharmacy and medication before forwarding?yes Pharmacy: [facility] [place] Pending Prescriptions: Disp Refills Clopidogrel Bisulfate 75 MG Oral Tablet (*90 Tab*0 Sig: TAKE ONE TABLET BY MOUTH IN THE MORNING Rosuvastatin Calcium 10 MG Oral Tablet (C*90 Tab*0 Sig: TAKE ONE TABLET BY MOUTH EVERY MORNING Metoprolol Tartrate 25 MG Oral Tablet (Lo*180 Ta*0 Sig: TAKE ONE TABLET BY MOUTH EVERY MORNING Olmesartan Medoxomil 40 MG Oral Tablet (B*90 Tab*0 Sig: TAKE ONE TABLET BY MOUTH EVERY MORNING Last Visit: 04/24/2022 (in office), Visit date not found (telemedicine) Next Visit: Visit date not found If no future appointments scheduled, and last appointment is greater than a year ago, please schedule patient for a follow-up appointment Last date the medication was ordered: 01/27/2022 Is this request for a controlled substance?No Urine Drug Screen:No results found for this or any previous visit. Patient Phone Numbers [place] [phone] Labs: Lab Results Component Value Date/Time CREAT [...] PM HGBA1C 7.5 (H) 06/21/2021 06:00 AM documented in this encounter Plan of Treatment [...] as of this encounter Visit Diagnoses Diagnosis Cerebrovascular disease, arteriosclerotic, post-stroke Cerebral atherosclerosis Mixed hyperlipidemia HTN, goal below 130/80 Unspecified essential hypertension documented in this encounter Care Teams Mine Expert Relationship Specialty Start Date End Date Jerry Pavon DO PCP - General Family Medicine 01/27/22 documented as of this encounter
[2023-07-22] MEDS ORDERED: PHARMACY GLYCEMIC MGMT CONSULT PRN (12:43)
[2023-07-22] MEDS: LANTUS PER UNIT CHARGE SQ SCH (13:24)
[2023-07-22] MEDS: LANTUS PER UNIT CHARGE SC STA (13:29)
--- NOTE | 2023-07-22 14:06 | Pharmacy Report ---
Pharmacy Glycemic Short Note 2 - Date of Service July 22, 2023 - Glycemic Short BSG Results (Last 24 hours): 07/21/23 07/22/23 07/22/23 18:51 06:57 07:52 Glucose 279 H 182 H POC Glucose 213 H 07/22/23 11:28 Glucose POC Glucose 333 H* OUTPATIENT ANTIDIABETIC REGIMEN: * Jardiance 10mg PO QAM * HbA1c 10.0% (07/22/23) ASSESSMENT: * Sumeet is a 62 YOM admitted with a diabetic foot infection and a history of diabetes mellitus. Pharmacy has been consulted to assist with glycemic management while inpatient. * Fasting BSG this AM elevated, significantly increased at lunchtime, will initi ate basal insulin at a weight based stress of 2 starting now, and allow for an increase to a weight based stress of 3 if BSGs elevated. * Novolog tightened to a weight based stress of 3 (based on AdjBW) PLAN FOR INPATIENT GLYCEMIC CONTROL: * Hold outpatient oral diabetes medications * Basal insulin * Lantus 15-25 units SQ BID (see eMAR for additional details) * Bolus insulin * NovoLog per scale ACHS or Q6hrs while NPO * Goal Range: Low 110 mg/dL - High 140 mg/dL * Correction Factor: 20 mg/dL/unit * Nutritional / Prandial insulin per carb ratio of 1 unit per 7 grams CHO consumed
--- NOTE | 2023-07-22 14:34 | Communication Note ---
Date of Service: July 22, 2023 Patient was admitted after 00:00 on 07/22/23. This is not a billable service. He was seen and evaluated in ED room C5. We discussed what brought him to the emergency department. He currently is living with his nephew. He states he has significant inability to walk. He also has wounds to his left foot. He has not taken his medications in the last 7 to 8 months. Of significance he does have a right lower extremity residual limb in which she continues to have sutures still intact from a previous surgery that took place almost a year ago. He denies any fever, chills, sweats, lightheadedness, dizziness, chest pain, shortness breath, nausea, vomiting or abdominal pain. Vital signs are stable. Blood pressure 152/80, pulse 79, temp 36.8 and he is s aturating normally on room air. Gen: Unkempt male, sitting up in bed, obese , WD/WN, NAD, A&O x3 HEENT: Normocephalic, atraumatic, conjunctivae moist, sclerae anicteric, mucous membranes moist. Lung: Clear to Auscultation bilaterally, no wheezes/rales/rhonchi Heart: Regular rate, regular rhythm, no murmurs, rubs, or gallops Abdomen: Soft, NT, ND +BS x 4 Extremities: Right lower extremity BKA, incision well-healed however sutures are still intact, no surrounding erythema; left lower extremity warm, trace edema, diminished pedal pulses, wounds in between phalanges and deep tissue injury to heel Skin: Warm, no rash, negative turgor. Admitting CBC, CMP, A1c and urinalysis reviewed. a/p: 62-year-old male with past medical history significant for diabetes, hyperlipidemia, hypertension, BPH, history of stroke, history of hyponatremia, history of septic shock in June 2022 secondary to necrotizing fasciitis of the right foot and was intubated and also complicated with DKA and UTI and pe riapical abscesses and facial infection s/p extensive aggressive debridement of right foot and findings were consistent with gas gangrene, osteomyelitis with necrotizing fasciitis. Was requiring vasopressors. . Echo showed 45 to 50% grade 1 diastolic function. 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 He also had hypernatremia sodium of 157. He was transferred in critical condition to [facility] for further debridement. Seems patient had below-knee amputation of the right leg at [place]. Currently living at home with his nephew. Patient states not ambulating since last 6 months. Since last 9 months is not taking any medications. Patient states he was put on antibiotics which caused a lot of abdominal pain and discomfort. He tried with stopping his other medications one after another which seems to helped his abdominal pain. And since then is not taking his regular medications except for medication for his BPH and Jardiance for his diabetes. Today was taken to his PCP office by his family and also found to have the sutures of the right below-knee amputation site still intact as patient has not followed up. And also has ulcers in the left foot and he was recommended to come to the ER and was brought in by the family. Family is concerned that he is not taking care of himself. May need placement. Left foot infection Diabetic foot infection admit to med/surg Placed on Rocephin; however will discontinue in favor of vanco/zosyn Left foot wounds between toes and heel Wound care consulted, appreciate their recs consult podiatry obtain ESR/CRP, foot XR daily wound care, strict diabetes control Monitor for response obtain LLE arterial doppler hx of R BKA 2/2 necrotizing fascitis of R foot s/p extensive debridement and BKA this was done in [place], Dr Moore 07/09/22 he continues to have sutures in place will consult podiatry Orthotics consult was placed, but they do not do BKA management; they recommend Vielka Hernandez out of [facility], T2DM, poorly controlled Has been without medication except Jardiance Lantus/NovoLog per protocol, consult lysine and pharmacy secondary to hyperglycemia and elevated anion gap A1c 10.0 Will need strict blood sugar control in setting of wounds at d/c pt may benefit from addition of metformin Elevated Anion gap minimal elevation at 13, with ketones in urine bicarb 19, no indication for insulin gtt at this time continue current bag of fluids and basal/bolus insulin follow anion gap in am. pt at risk for euglycemic DKA in setting of jardiance Hyperlipidemia Not taking medications Will follow lipid profile Hypertension Currently not taking medications Will monitor History of BPH Taking Avodart Monitor for urinary retention Questionable CHF EF 45 to 50% on echo done in June 2022 in setting of septic shock Echocardiogram revealed EF 55 to 60%, localized apical wall motion abnormality severe hypokinesis to dyskinesis involving the inferior posterior and apical inferior septal aspect. Basal wall segments are hyperdynamic, grade 1 diastolic dysfunction, no gross valvular disease Compared to prior echocardiogram in 2022 there is no significant change Currently euvolemic on exam Daily weights, strict I's and O's DVT prophylaxis Lovenox Disposition med/surg Full code Patient was seen and examined in collaboration with, Dr. Segovia, please see addendum Attending addendum; Patient seen and examined independently. Discussed with above provider Patient was brought here by family after unable to be taken care of. Patient reports that he has not ambulated since last 1 year. He is not able to transfer himself to the wheelchair Has wounds on his left foot. Will start on antibiotics with Zosyn and Vanco. Obtain podiatry consult to evaluate for possible infection on the left foot and suture removal on right amputate stump. PT OT eval; will likely need long-term placement. Please note the above document was generated using voice recognition software. It may contain grammatical, syntax or spelling errors. Any formal questions or concerns about the content, text or information contained within the body of this dictation should be directly addressed to the provider for clarification
[2023-07-22] MEDS ORDERED: VANCOMYCIN CONSULT ACTIVE PRN (15:04)
[2023-07-22] MEDS: PIPERACILLIN/TAZOBACTAM 4.5 GM in DEXTROSE 5% MINI-B 100 ML IV STA (15:46)
--- NOTE | 2023-07-22 16:03 | Electrocardiogram Report ---
Test Reason : Blood Pressure : / mmHG Vent. Rate : 077 BPM Atrial Rate : 077 BPM P-R Int : 186 ms QRS Dur : 076 ms QT Int : 374 ms P-R-T Axes : 063 -07 096 degrees QTc Int : 423 ms Normal sinus rhythm Possible Inferior infarct , age undetermined Anterolateral infarct (cited on or before 17-FEB-2022) Abnormal ECG When compared with ECG of 09-JUL-2022 04:38, Borderline criteria for Inferior infarct are now Present Nonspecific T wave abnormality, improved in Lateral leads Confirmed by Aleksandar Osorio ([id number]) on 07/22/2023 4:03:31 PM Referred By: Jerry Pavon Confirmed By:Aleksandar Osorio
[2023-07-22] MEDS: VANCOMYCIN HCL 2,250 MG in SODIUM CHLORIDE 0.9% 500 ML IV ONE (16:25)
--- NOTE | 2023-07-22 17:42 | XRay Report ---
XR foot LT 2V CLINICAL HISTORY: Wound. COMPARISON: None FINDINGS: No acute fracture is identified within the left foot. No bony erosions are identified. The re is extensive vascular calcification. There is mild dorsal soft tissue swelling. There are posterio r and plantar calcaneal spurs. IMPRESSION: No radiographic evidence for acute osteomyelitis within the left foot. ACT 112: Negative or not required by law. Electronically signed by: Jack Hairston M.D. 07/22/2023 5:41 PM
--- NOTE | 2023-07-22 19:36 | Pharmacy Report ---
Pharmacy PK ABX Note - Date of Service July 22, 2023 - Assessment and Plan Assessment 62 year old M receiving vancomycin and Zosyn for treatment of left diabetic foot infection. Pertinent microbiologic data includes: urine culture (07/20) pending. Left foot x-ray not concerning for osteomyelitis. Pertinent PMH includes hx right BKA, T2DM (poorly controlled), and history of MRSA infection. Day # 1 of antimicrobial therapy. Plan Vancomycin * Loading dose: 2250 mg IV x 1 * Maintenance dose: 1250 mg IV every 8 hours * Regimen is predicted to achieve target AUC/GRACIE of 400-600 mg/L.hr * Trough level ordered for: 07/24/23 * Will dose aggressively to start Zosyn * 4.5 g IV q8h - appropriately dosed Pharmacy will continue to follow and will adjust dose/frequency as necessary. Thank you. Pharmacy has transitioned to AUC monitoring for vancomycin. AUC/GRACIE is the preferred PK/PD target and is associated with decreased risk of nephrotoxicity compared to traditional trough targets.
[2023-07-22] MEDS: LANTUS PER UNIT CHARGE SC SCH (20:47)
[2023-07-22] MEDS: PIPERACILLIN/TAZOBACTAM 4.5 GM in DEXTROSE 5% MINI-B 100 ML IV SCH (20:47)
[2023-07-22] MEDS ORDERED: cefTRIAXone SODIUM 2,000 MG in DEXTROSE 5 % MINI-B 50 ML IV SCH (21:00)
--- NOTE | 2023-07-22 22:45 | Podiatry Consultation ---
Date of Consultation July 22, 2023 Assessment & Plan (1) Unable to care for self: (2) Open wound of left heel: Encounter type: initial encounter Qualified Code(s): S91.302A - Unspecified open wound, left foot, initial encounter (3) Left foot infection: Plan patient was examined and evaluated. Based on plain film imaging, in clinical exam findings, there is no evidence of underlying bone infection at this time. He does likely have some soft tissue infection and/or skin infection, which should respond well to IV or oral antibiotics. There is no indication for surgical intervention at this time, given the relatively small and stable appearance of these ulcerations. Further, with his uncertain vascular status, no surgical dimension would be thought to be beneficial prior to evaluating arterial inflow. I, personally, will be out of town this weekend and will be unavailable over the weekend for debridement or incisions and drainage if these wounds worsen. Otherwise, though, they should continue to improve with antibiosis. He would benefit from discharge to rehab given his lack of compliance with home care and inability to walk without doing so for the last year. The concern, mostly, is the left heel wound, which will lead to osteomyelitis of the calcaneus and a potential left [id number] amputation if he fails to regain his ambulation. I would work recommend continued follow-up with wound care here inpatient, as the team is very good at managing these wounds. For now, with no surgical treatment plan, I will sign off though may be able to follow up if he remains here into next week. History of Present Illness Reason for Consultation: Left foot infection Attending Physician: Sampson Segovia MD History of Present Illness patient seen at bedside. No acute distress but is also not amenable to answering many questions. He is slightly combative. Based on review of the chart, he has been seen by a colleague of [facility] for right foot infections in the past. These did progress to a right lower extremity below the knee amputation. This procedure was more recent and he still has some sutures in this surgical stump. Now, he has increasing ulceration and pain to the left lower extremity. He seems to be suffering some degree of neglect, either of himself or due to a lack of care overall. He seems to deny any systemic signs or symptoms of infection but does have this increasing pain to the left foot. He denies any recent medical history change. Allergies Allergy/AdvReac Type Severity Reaction Status Date / Time aloe vera Allergy Unknown Unknown Verified 07/21/23 20:05 Sulfa (Sulfonamide AdvReac Mild Nausea Verified 07/21/23 20:05 Antibiotics) Home Medications Medication Instructions Recorded Confirmed Type ammonium lactate 12 % lotion 1 applic topical UD PRN dry skin 02/17/22 07/21/23 History on legs clopidogrel 75 mg tablet 75 mg PO QAM 02/17/22 07/22/23 History dutasteride 0.5 mg capsule 0.5 mg PO QAM 02/17/22 07/21/23 History empagliflozin 10 mg tablet 10 mg PO QAM 02/17/22 07/21/23 History (Jardiance) metoprolol tartrate 25 mg tablet 25 mg PO QAM 02/17/22 07/22/23 History olmesartan 40 mg tablet 40 mg PO QAM 02/17/22 07/22/23 History pantoprazole 40 mg tablet,delayed 40 mg PO QAM 02/17/22 07/22/23 History release rosuvastatin 10 mg tablet 10 mg PO QPM 02/17/22 07/22/23 History amlodipine 5 mg tablet 5 mg PO DAILY 06/23/22 07/22/23 History folic acid 1 mg tablet 1 mg PO DAILY 07/08/22 07/22/23 History vitamin B complex 1 tab PO DAILY 07/08/22 07/22/23 History Patient History Medical History Bacteremia Surgical complication involving skin Application of [place] Graft to Right Forefoot-03/28/22 Amputation toe Right 4th Toe- 02/27/22 S/P arteriogram of extremity Right leg, lithotripsy of proximal popliteal artery, mechanical closure of left femoral artery, 02/25/22 Diabetic ulcer of right fifth toe Cellulitis of toe of right foot Former smoker BPH (benign prostatic hyperplasia) Hyponatremia Mixed hyperlipidemia Essential hypertension Peripheral arterial disease Stroke July 2020 Right upper extremity weakness GERD (gastroesophageal reflux disease) Neuropathy Dyslipidemia Diabetes mellitus Obesity Osteomyelitis of right foot Surgical History S/P debridement Right foot debridement, wound vac application 02/21/22 History of incision and drainage partial excision of fifth ray of right foot, delayed primary closure 02/18/22 Family History Other Diabetes Social History Smoking Status: Current some day smoker Tobacco Type: Smokeless Tobacco (Dip or Chew) Second Hand Exposure: No; Do You Dip or Chew Tobacco: Yes; Tobacco Cessation Education Requested by Patient: Yes Hx Alcohol Use: Yes Hx Substance Use: No Preferred Language: Yakut Communication Ability: Effective Associate Director Finance Required: No Beliefs That Will Affect Care: None marital status: Single Current Living Situation: Family Current Living Situation Comment: nephew living with patient How many Children do You have: 9 Other Information That Helps Us Care for You: No Feels Safe at Home: Yes Safety Concerns: Feels Safe At This Time Assistive Devices: Glasses Review of Systems Review of Systems: All systems reviewed & are unremarkable except as noted in HPI & below Constitutional: no problem reported Eyes: no problem reported Ear, Nose, Mouth, Throat: no problem reported Respiratory: no problem reported Cardiovascular: no problem reported Gastrointestinal: no problem reported Genitourinary: no problem reported Musculoskeletal: no problem reported Integumentary: + lesions, + non-healing lesions and + s kin ulcer Neurologic: + loss of sensation, + numbness and + pa resthesia Psychiatric: no problem reported Physical Exam Physical Exam: left lower extremity focused exam: DP/PT pulses nonpalpable. CFT is brisk to the digits. Limb is cool to cool proximal to distal. There is diffuse edema to the left lower extremity. Advanced skin atrophy is noted with a global decrease in hair growth noted to the left lower extremity. Protective sensation is diminished to the left foot though pain is noted on palpation of the forefoot and heel. There is a diffuse pressure ulcer underlying the left heel, though no deep probing is noted. This does appear to be confined to the subcutaneous tissue with no local evidence of infection other than pain. Further, there are smaller left forefoot ulcerations with no evidence of any significant depth to these wounds. They do appear to be associated with the overall atrophy of his lower extremity and decreased blood flow. Upon review of the wound images in the EMR, there are retained sutures to the right BKA surgical stump, though this is not associated with foot and ankle surgery and is out of our scope, as simple as it may seem. Constitutional: WD/WN, vitals as above + ill appearing and + disheveled; no acute distress and not in distress Eyes: PERRL, conjunctivae normal, anicteric sclerae ENMT: external ear and nose normal, oropharynx normal Neck: trachea midline, no thyromegaly Respiratory: normal respiratory effort; no respiratory distress Cardiovascular: Rate/Rhythm: regular rate and regular rhythm Vessels: + posterior tibial pulses abnormal and + dorsalis pedis pulses abnormal Gastrointestinal (Abdomen): Inspection/Auscultation: abdomen normal to inspection Musculoskeletal: no cyanosis or clubbing, extremities motor strength 5/5 Head/Neck/Chest: normocephalic and head atraumatic Extremities: + muscle atrophy Ankle: + limited ROM of ankle right below-knee amputation is noted. Remainder of physical exam is limited to the left lower extremity. Skin: + lesion, + induration, + dry skin, + es marques, + nails discolored and + nails dystrophic Neurologic: moves all extremities; + abnormal touch/pain/proprioception and + abnormal sensation to monofilament Psychiatric: Orientation: alert and oriented x 3 Apperance: + disheveled; + inappropriately groomed Affect: + depressed affect and + flat affect Results & Data Vital Signs (Past 12 Hours) Vital Signs Temp Pulse Resp BP BP Pulse Ox O2 Del Method 07/22/23 20:30 36.7 C 63 18 163/75 H 96 Room Air 07/22/23 14:41 36.6 C 70 16 153/68 H 97 Room Air 07/22/23 11:10 Room Air 07/22/23 11:04 36.8 C 79 18 152/80 H 98 Room Air Diagnostic Findings plain film imaging was reviewed and reveals advanced calcific stenosis of the foot and ankle with diffuse calcifications noted within the posterior tibial and dorsalis pedis arteries. This could be what is obscuring the palpation of the DP and PT, though there are advanced trophic changes to the foot overall, as well, along with the history of right below-knee amputation. There is advanced arthritic changes to the first metatarsal phalangeal joint as well.
[2023-07-23] MEDS: VANCOMYCIN HCL 1,250 MG in SODIUM CHLORIDE 0.9% 250 ML IV SCH (02:00)
[2023-07-23 06:41] LABS: Basophils # (auto) 0.04 K/uL (0.00-0.20); Basophils % (auto) 0.5 %; Eosinophils # (auto) 0.37 K/uL (0.00-0.50); Eosinophils % (auto) 4.5 %; Hematocrit (blood only) 41.8 % (42.0-52.0); Hemoglobin 13.1 g/dl (14.0-18.0); Immature Granulocytes # (auto) 0.03 K/uL (0.01-0.20); Immature Granulocytes % (auto) 0.4 %; Lymphocytes # (auto) 0.86 K/uL (1.20-3.40); Lymphocytes % (auto) 10.4 %; Mean Corpuscular Hemoglobin 25.7 pg (25.0-34.0); Mean Corpuscular Hgb Conc 31.3 g/dL (32.0-36.0); Mean Corpuscular Volume 82.1 fL (80.0-100.0); Mean Platelet Volume 9.6 fL (9.4-12.4); Neutrophils # (auto) 6.48 K/uL (1.40-6.50); Neutrophils % (auto) 78.2 %; Platelet Count 226 K/uL (130-400); RDW Coefficient of Variation 14.1 % (11.5-14.5); RDW Standard Deviation 41.8 fL (36.4-46.3); Red Blood Count 5.09 M/uL (4.70-6.10); White Blood Count 8.28 K/ul (4.8-10.8)
[2023-07-23 06:46] LABS: Albumin Level 3.5 gm/dl (3.4-5.0); BUN Creatinine Ratio 22.5 (10-20); Bilirubin,Total 1.2 mg/dl (0.2-1.0); C Reactive Protein 7.08 mg/dl (0-0.5); Calcium 8.9 mg/dl (8.6-10.3); Chol HDL Ratio 5.6 (0-5); Creatinine Clr Calc Pharmacy 113.6 ml/min; Est GFR (African American) 112.5 ml/min; Est GFR (Non-African American) 97.1 ml/min; Globulin 3.6 gm/dl (2.5-4.0); Potassium 3.8 mmol/L (3.5-5.1); Total Protein 7.1 gm/dl (6.0-8.3)
--- NOTE | 2023-07-23 07:07 | Ultrasound Report ---
US arterial duplex left lower extremity CLINICAL HISTORY: Left lower extremity wound. COMPARISON STUDY: CT angiogram runoff 02/18/2022. FINDINGS: Monophasic to biphasic waveforms in the left common femoral, left superficial femoral, popl iteal arteries. Monophasic waveforms within the visualized left calf arteries. Elevated peak systolic velocity within the left common femoral artery of 202 cm/s suggestive of an area of stenosis. There is a focal area of elevated peak systolic velocity within the distal left superficial femoral artery of 305 cm/s consistent with stenosis. The left profunda femoris artery is not visualized. The mid to distal peroneal artery is likely occluded. Normal velocities within the anterior tibial, posterior ti bial, dorsalis pedis arteries. The patient deferred evaluation of the ankle brachial indices. IMPRESSION: 1. 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 2. The profunda femoris artery is not visualized and could be occluded. 3. Focal areas of hemodynamically significant stenosis within the left common femoral and distal left superficial femoral arteries. ACT 112: Negative or not required by law. Electronically signed by: Mau Hewitt M.D. 07/23/2023 7:05 AM
[2023-07-23] MEDS: LANTUS PER UNIT CHARGE SC SCH (09:13)
[2023-07-23] MEDS: VANCOMYCIN LEVEL ONE (11:12)
--- NOTE | 2023-07-23 11:49 | Pharmacy Report ---
Pharmacy PK ABX Note - Date of Service July 23, 2023 - Assessment and Plan Assessment 07/23: [employer] predicting supertherapeutic AUC/GRACIE, stat level ordered before 1000 dose for better dosing recommendations based on population estimates, confirmed supertherapeutic AUC/GRACIE. Vancomycin dose slightly reduced, continue with trough level tomorrow. 07/22: 62 year old M receiving vancomycin and Zosyn for treatment of left diabetic foot infection. Pertinent microbiologic data includes: urine culture (07/20) pending. Left foot x-ray not concerning for osteomyelitis. Pertinent PMH includes hx right BKA, T2DM (poorly controlled), and history of MRSA infection. Day # 1 of antimicrobial therapy. Plan Vancomycin * Loading dose: 2250 mg IV x 1 * Maintenance dose: 1250 mg IV every 8 hours * Decrease vancomycin dose to 1000mg Q8H * Regimen is predicted to achieve target AUC/GRACIE of 400-600 mg/L.hr * Trough level ordered for: 07/24/23 Zosyn * 4.5 g IV q8h - appropriately dosed Pharmacy will continue to follow and will adjust dose/frequency as necessary. Thank you. Pharmacy has transitioned to AUC monitoring for vancomycin. AUC/GRACIE is the preferred PK/PD target and is associated with decreased risk of nephrotoxicity compared to traditional trough targets.
--- NOTE | 2023-07-23 13:28 | Hospitalist Progress Note ---
Date of Service July 23, 2023 Assessment & Plan (1) Unable to care for self: (2) Noncompliance with medication regimen: (3) Hyperglycemia: (4) Open wound of left heel: (5) Left foot infection: Plan This is a 62-year-old male with PMH significant for DM II, hyperlipidemia, h ypertension, BPH, history of stroke, history of hyponatremia, history of septic shock in June 2022 2/2 necrotizing fasciitis of the right foot requiring transfer to [facility] with BKA, also with complicating factors of DKA, UTI, periapical abscesses and facial infection s/p extensive aggressive debridement of right foot at with findings were consistent with gas gangrene, osteomyelitis with necrotizing fasciitis. Currently living at home with his nephew. Patient states not ambulating since last 6 months, is not taking any medications (other than BPH meds and Jardiance) and still has sutures present at BKA site. Was taken to PCP yesterday by family and was redirected to ED for further evaluation Family is concerned that he is not taking care of himself. Left foot infection Diabetic foot infection Admitted to med/surg Placed on Rocephin; however will discontinue in favor of vanco/zosyn Left foot wounds between toes and heel Consulted podiatry-do not feel osteomyelitis is present at this time, continue IV antibiotic treatment and podiatry follow-up Podiatry feels patient would benefit from discharge to rehab given lack of compliance with home care and inability to walk Podiatry recommending rehab for improved medication compliance, help with conditioning Wound culture growing MRSA, bacteroides fragilis, micromonas micros ID consult placed Appreciate wound care involvement, continue daily dressings Daily wound care, strict diabetes control PAD Concern for PAD given diminished pedal pulses and wounds on left lower extremity LLE arterial doppler with the mid to distal left peroneal artery is occluded. The profunda femoris artery is not visualized and could be occluded. Focal areas of hemodynamically significant stenosis within the left common femoral and distal left superficial femoral arteries. Evaluated by vascular surgery - Recommends pt undergo LLE angio with intervention on 07/27/23 Hx of R BKA 2/2 necrotizing fascitis of R foot s/p extensive debridement and BKA this was done in Dr Oscar Voss 07/09/22 he continues to have sutures in place will consult podiatry Orthotics consult was placed, but they do not do BKA management; they recommend Vielka Hernandez out of [facility], T2DM, poorly controlled Has been without medication except Jardiance Lantus/NovoLog per protocol, consult lysine and pharmacy secondary to hyperglycemia and elevated anion gap A1c 10.0 Will need strict blood sugar control in setting of wounds At d/c pt may benefit from addition of metformin Elevated Anion gap -> resolved minimal elevation at 13, with ketones in urine bicarb 19, no indication for insulin gtt at this time continue current bag of fluids and basal/bolus insulin follow anion gap in am. pt at risk for euglycemic DKA in setting of Jardiance Hyperlipidemia Not taking medications Will follow lipid profile Hypertension Currently not taking medications Will monitor History of BPH Taking Avodart Monitor for urinary retention ?CHF EF 45-50% on echo done in June 2022 in setting of septic shock Echocardiogram from 07/21 revealed EF 55-60%, localized apical wall motion abnormality severe hypokinesis to dyskinesis involving the inferior posterior and apical inferior septal aspect. Basal wall segments are hyperdynamic, grade 1 diastolic dysfunction, no gross valvular disease Compared to prior echocardiogram in 2022 there is no significant change Currently euvolemic on exam Daily weights, strict I's and O's DVT prophylaxis Lovenox Disposition med/surg Full code Patient was seen and examined in collaboration with, Dr. Segovia, please see addendum I spent a total of 70 minutes coordinating, documenting, and providing care for this patient excluding time spent in the performance of separately billed services. Admission and Anticipated Discharge Date Admission Date: July 22, 2023 Supervising Physician Co-Signing Physician Notes Patient seen and examined independently. Discussed with above provider. Patient's vital stable. No significant over night events He denies any pain or discomfort. It was brought to the attention that he reported frustrations about his care provided here with my colleague as stated above. He also made racial inappropriate comments and made threatening remarks. I discussed with him if he had any particular issues that I can help with and help clarify the plan of care. He denies any particular issues at this time. I asked him if he would like to see another provider other than me. He agreed to be seen by another provider tomorrow. Discussed with patient liaison (Claudia); provided her updates. Plan to continue on current antibiotic Zosyn and vancomycin. Appreciate infectious disease input. Vascular surgery consulted for finding in duplex scan of lower extremity Continue wound care PT OT ordered Case management on board; appreciate recommendation. Please note the above document was generated using voice recognition software. It may contain grammatical, syntax or spelling errors. Any formal questions or concerns about the content, text or information contained within the body of this dictation should be directly addressed to the provider for clarification Subjective Patient seen and examined in 384 today in follow-up for chronic left lower extremity wounds. Denies any acute changes overnight. Pain in legs is controlled. Was agitated during our discussion due to the fact that "someone just came in and told me that someone's abusing me" and "all anyone wants to talk to me about is going to rehab". Discussed concern that patient is getting adequate care at home, particularly in regards to wound care. Patient lives with nephew and insists he does not need any additional help. No fever, chills, lightheadedness, chest pain, shortness of breath, nausea, vomiting, abdominal pain, dysuria, diarrhea or constipation. During discussion, patient brought up frustrations with his physician involved in care using a racially inappropriate description. Then stated " If it were legal, I would have ended him right there." When asked for clarification on legality comment, he said "I can't carry here. No guns allowed." Redirected patient back to discussion about care plan with antibiotics, vascular evaluation for PAD noted on imaging as well as readdressing disposition. Review of Systems Review of Systems: At least ten systems reviewed and negative except as noted in the HPI. Physical Exam Physical Exam: Gen: WD/WN, NAD, laying in bed, A&Ox3, intermittently agitated HEENT: Normocephalic, atraumatic, conjunctivae moist, sclerae anicteric, mucous membranes moist Lung: Clear to Auscultation bilaterally, no wheezes/rales/rhonchi Heart: Regular rate, regular rhythm, no murmurs, rubs, or gallops Abdomen: Soft, NT, ND +BS x 4 Extremities: RLE BKA, incision well-healed however sutures are still intact, no surrounding erythema, LLE warm, trace edema, diminished pedal pulses, wounds in between toes and deep tissue injury to heel Skin: Warm, no rash Results & Data Results & Data Vital Signs (Past 12 Hours) Vital Signs Temp Pulse Resp BP Pulse Ox O2 Del Method 07/23/23 07:50 36.9 C 67 16 147/75 H 95 Room Air 07/23/23 07:30 Room Air Laboratory Results Short CBC 07/23/23 Range/Units 05:59 WBC 8.28 (4.8-10.8) K/ul Hgb 13.1 L (14.0-18.0) g/dl Hct 41.8 L (42.0-52.0) % Plt Count 226 (130-400) K/uL BMP 07/23/23 05:59 Sodium 137 Potassium 3.8 Chloride 108 H Carbon Dioxide 21 BUN 18 Creatinine 0.80 Glucose 152 H Calcium 8.9 Liver Function 07/23/23 Range/Units 05:59 Total Bilirubin 1.2 H (0.2-1.0) mg/dl AST 9 L (13-39) U/L ALT 4 L (7-52) U/L Alkaline Phosphatase 71 (34-104) U/L Albumin 3.5 (3.4-5.0) gm/dl Diagnostic Findings Duplex Scan Lower Extremity Artery 07/22/23 14:27 US arterial duplex left lower extremity CLINICAL HISTORY: Left lower extremity wound. COMPARISON STUDY: CT angiogram runoff 02/18/2022. FINDINGS: Monophasic to biphasic waveforms in the left common femoral, left superficial femoral, popliteal arteries. Monophasic waveforms within the visualized left calf arteries. Elevated peak systolic velocity within the left common femoral artery of 202 cm/s suggestive of an area of stenosis. There is a focal area of elevated peak systolic velocity within the distal left superficial femoral artery of 305 cm/s consistent with stenosis. The left profunda femoris artery is not visualized. The mid to distal peroneal artery is likely occluded. Normal velocities within the anterior tibial, posterior tibial, dorsalis pedis arteries. The patient deferred evaluation of the ankle brachial indices. IMPRESSION: 1. 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 2. The profunda femoris artery is not visualized and could be occluded. 3. Focal areas of hemodynamically significant stenosis within the left common femoral and distal left superficial femoral arteries. ACT 112: Negative or not required by law. Electronically signed by: Mau Hewitt M.D. 07/23/2023 7:05 AM Foot X-Ray 07/22/23 15:04 XR foot LT 2V CLINICAL HISTORY: Wound. COMPARISON: None FINDINGS: No acute fracture is identified within the left foot. No bony erosions are identified. There is extensive vascular calcification. There is mild dorsal soft tissue swelling. There are posterior and plantar calcaneal spurs. IMPRESSION: No radiographic evidence for acute osteomyelitis within the left foot. ACT 112: Negative or not required by law. Electronically signed by: Jack Hairston M.D. 07/22/2023 5:41 PM (4) Open wound of left heel Encounter type: initial encounter Qualified Code(s): S91.302A - Unspecified open wound, left foot, initial encounter
--- NOTE | 2023-07-23 15:11 | Consultation ---
Date of Consultation July 23, 2023 Assessment & Plan (1) Peripheral arterial disease: Pt with significant PAD of LLE and nonhealing/infected heel wound. Pt discussed with Dr Ocampo, who also reviewed imaging. Recommends pt undergo LLE angio with intervention on 07/27/23. Procedure, risks, benefits, and alternatives discussed with pt by myself at Dr Ocampo's request. Pt expresses understanding and agreement to proceed. History of Present Illness Reason for Consultation: PAD Attending Physician: Sampson Segovia MD History of Present Illness 62 yo m with hx of PAD, DMII, HTN, noncompliance, GERD, neuropathy, CVA, anemia, admitted with LLE foot infection, seen in consultation today for PAD. Pt is a poor historian and unsure how long his LLE heel wound has been present. Pt known to Dr Ocampo for RLE angio with lithotripsy of pop art in 2021. Pt has since required RLE BKA d/t necrotizing fasciitis of RLE. Pt states his LLE foot is numb from neuropathy. Denies SIERRA, fever, cehst pain, SOB, abd pain, N/V, rest pain, claudication, other complaints. Does not ambulate fast or far enough to claudicate d/t RLE amputation. LLE arterial US demonstrates significant disease. Allergies Allergy/AdvReac Type Severity Reaction Status Date / Time aloe vera Allergy Unknown Unknown Verified 07/21/23 20:05 Sulfa (Sulfonamide AdvReac Mild Nausea Verified 07/21/23 20:05 Antibiotics) Home Medications Medication Instructions Recorded Confirmed Type ammonium lactate 12 % lotion 1 applic topical UD PRN dry skin 02/17/22 07/21/23 History on legs clopidogrel 75 mg tablet 75 mg PO QAM 02/17/22 07/22/23 History dutasteride 0.5 mg capsule 0.5 mg PO QAM 02/17/22 07/21/23 History empagliflozin 10 mg tablet 10 mg PO QAM 02/17/22 07/21/23 History (Jardiance) metoprolol tartrate 25 mg tablet 25 mg PO QAM 02/17/22 07/22/23 History olmesartan 40 mg tablet 40 mg PO QAM 02/17/22 07/22/23 History pantoprazole 40 mg tablet,delayed 40 mg PO QAM 02/17/22 07/22/23 History release rosuvastatin 10 mg tablet 10 mg PO QPM 02/17/22 07/22/23 History amlodipine 5 mg tablet 5 mg PO DAILY 06/23/22 07/22/23 History folic acid 1 mg tablet 1 mg PO DAILY 07/08/22 07/22/23 History vitamin B complex 1 tab PO DAILY 07/08/22 07/22/23 History Patient History Medical History Bacteremia Surgical complication involving skin Application of [place] Graft to Right Forefoot-03/28/22 Amputation toe Right 4th Toe- 02/27/22 S/P arteriogram of extremity Right leg, lithotripsy of proximal popliteal artery, mechanical closure of left femoral artery, 02/25/22 Diabetic ulcer of right fifth toe Cellulitis of toe of right foot Former smoker BPH (benign prostatic hyperplasia) Hyponatremia Mixed hyperlipidemia Essential hypertension Peripheral arterial disease Stroke July 2020 Right upper extremity weakness GERD (gastroesophageal reflux disease) Neuropathy Dyslipidemia Diabetes mellitus Obesity Osteomyelitis of right foot Surgical History S/P debridement Right foot debridement, wound vac application 02/21/22 History of incision and drainage partial excision of fifth ray of right foot, delayed primary closure 02/18/22 Family History Other Diabetes Social History Smoking Status: Current some day smoker Tobacco Type: Smokeless Tobacco (Dip or Chew) Second Hand Exposure: No; Do You Dip or Chew Tobacco: Yes; Tobacco Cessation Education Requested by Patient: Yes Hx Alcohol Use: Yes Hx Substance Use: No Preferred Language: Danish Communication Ability: Effective Mortising Machine Operator Required: No Beliefs That Will Affect Care: None marital status: Single Current Living Situation: Family Current Living Situation Comment: nephew living with patient How many Children do You have: 9 Other Information That Helps Us Care for You: No Feels Safe at Home: Yes Safety Concerns: Feels Safe At This Time Assistive Devices: Crutches, Walker and Wheelchair Review of Systems Review of Systems: All systems reviewed & are unremarkable except as noted in HPI & below Physical Exam Constitutional: + obese and + disheveled; not in distres s ENMT: Ears: no hearing impairment Neck: trachea midline Respiratory: normal respiratory effort, lungs clear to auscultation Auscultation: + diminished lung sounds Cardiovascular: Rate/Rhythm: regular rate and regular rhythm Vessels: femoral pulses present; + abnormal peripheral pulses Extremities: + abnormal capillary refill (5 sec LLE) Gastrointestinal (Abdomen): Inspection/Auscultation: abdomen normal to inspection and normal bowel sounds Percussion/Palpation: abdomen soft; abdomen nontender Musculoskeletal: no cyanosis or clubbing, extremities motor strength 5/5 Extremities: + amputation noted Skin: + ulcer (L heel, necrotic) Neurologic: moves all extremities and awake; no focal motor deficits and not confused Psychiatric: A+Ox3, euthymic affect Results & Data Vital Signs (Past 12 Hours) Vital Signs Temp Pulse Resp BP BP Pulse Ox O2 Del Method 07/23/23 14:36 36.6 C 67 16 142/70 H 96 Room Air 07/23/23 07:50 36.9 C 67 16 147/75 H 95 Room Air 07/23/23 07:30 Room Air
[2023-07-23] MEDS: ACETAMINOPHEN 325 MG TAB PO PRN (17:39)
[2023-07-23] MEDS: VANCOMYCIN HCL 1,000 MG in SODIUM CHLORIDE 0.9% 250 ML IV SCH (20:59)
[2023-07-24 06:15] LABS: Hematocrit (blood only) 41.2 % (42.0-52.0); Hemoglobin 12.5 g/dl (14.0-18.0); Mean Corpuscular Hemoglobin 25.1 pg (25.0-34.0); Mean Corpuscular Hgb Conc 30.3 g/dL (32.0-36.0); Mean Corpuscular Volume 82.6 fL (80.0-100.0); Mean Platelet Volume 9.3 fL (9.4-12.4); Platelet Count 206 K/uL (130-400); RDW Standard Deviation 41.3 fL (36.4-46.3); Red Blood Count 4.99 M/uL (4.70-6.10); White Blood Count 6.23 K/ul (4.8-10.8)
[2023-07-24 06:37] LABS: BUN Creatinine Ratio 19.5 (10-20); Calcium 8.8 mg/dl (8.6-10.3); Creatinine Clr Calc Pharmacy 110.9 ml/min; Est GFR (African American) 111.4 ml/min; Est GFR (Non-African American) 96.1 ml/min; Potassium 3.9 mmol/L (3.5-5.1)
[2023-07-24] MEDS ORDERED: VANCOMYCIN LEVEL ONE (09:30)
--- NOTE | 2023-07-24 11:28 | Pharmacy Report ---
Pharmacy Glycemic Short Note 2 - Date of Service July 24, 2023 - Glycemic Short BSG Results (Last 24 hours): 07/23/23 07/23/23 07/23/23 11:35 16:58 20:16 Glucose POC Glucose 165 H 110 H 124 H 07/24/23 07/24/23 05:41 08:04 Glucose 121 H POC Glucose 135 H OUTPATIENT ANTIDIABETIC REGIMEN: * Jardiance 10mg PO QAM * HbA1c 10.0% (07/22/23) ASSESSMENT: 07/23 * Zachariah received 61 units of insulin yesterday (35 were basal) * Fasting BSG within goal range this morning, continue current basal regimen. * Novolog parameteres seem to be adequately covering and correcting, continue. 07/21 * Sumeet is a 62 YOM admitted with a diabetic foot infection and a history of diabetes mellitus. Pharmacy has been consulted to assist with glycemic management while inpatient. * Fasting BSG this AM elevated, significantly increased at lunchtime, will initiate basal insulin at a weight based stress of 2 starting now, and allow for an increase to a weight based stress of 3 if BSGs elevated. * Novolog tightened to a weight based stress of 3 (based on AdjBW) PLAN FOR INPATIENT GLYCEMIC CONTROL: * Hold outpatient oral diabetes medications * Basal insulin * Lantus 20 units SQ QAM * Lantus 15-25 units SQ HS (see eMAR for additional details) * Bolus insulin * NovoLog per scale ACHS or Q6hrs while NPO * Goal Range: Low 110 mg/dL - High 140 mg/dL * Correction Factor: 20 mg/dL/unit * Nutritional / Prandial insulin per carb ratio of 1 unit per 7 grams CHO consumed
[2023-07-24] MEDS: VANCOMYCIN LEVEL ONE (11:56)
--- NOTE | 2023-07-24 12:00 | Communication Note ---
Date of Service: July 24, 2023 Patient for arteriography with possible intervention on Thursday.
--- NOTE | 2023-07-24 12:43 | Pharmacy Report ---
Pharmacy PK ABX Note - Date of Service July 24, 2023 - Assessment and Plan Assessment 07/23: Reviewed vancomycin level, predicting therapeutic AUC/GRACIE, continue current regimen 07/22: [facility] predicting supertherapeutic AUC/GARCIE, stat level ordered before 1000 dose for better dosing recommendations based on population estimates, confirmed supertherapeutic AUC/GRACIE. Vancomycin dose slightly reduced, continue with trough level tomorrow. 07/21: 62 year old M receiving vancomycin and Zosyn for treatment of left diabetic foot infection. Pertinent microbiologic data includes: urine culture (07/20) pending. Left foot x-ray not concerning for osteomyelitis. Pertinent PMH includes hx right BKA, T2DM (poorly controlled), and history of MRSA infection. Day # 1 of antimicrobial therapy. Plan Vancomycin * Loading dose: 2250 mg IV x 1 * Maintenance dose: 1000 mg IV every 8 hours * Regimen is predicted to achieve target AUC/GRACIE of 400-600 mg/L.hr * Level to be ordered if continued in the next 48-72 hours, sooner if patient's clinical status worsens Zosyn * 4.5 g IV q8h - appropriately dosed Pharmacy will continue to follow and will adjust dose/frequency as necessary. Thank you. Pharmacy has transitioned to AUC monitoring for vancomycin. AUC/GRACIE is the preferred PK/PD target and is associated with decreased risk of nephrotoxicity compared to traditional trough targets.
--- NOTE | 2023-07-24 13:22 | Infectious Disease Consult ---
Date of Service July 24, 2023 Telehealth Information I performed this visit using a real-time telehealth connection between my location and the patients location ([facility]). After connecting through interactive tele-video, patient was identified by name and date of and/or wristband check.Patient (or authorized healthcare technical sales representative) was informed that this was a telemedicine visit and it was being conducted confidentially over secure lines. My office door was closed and no on e else was present in the room with me.Patient (or authorized healthcare technical sales representative) provided consent to proceed with the visit, expressed an understanding of privacy and security of the telemedicine visit, and gave permission to have a hospital technical sales representative in the room in order to assist with the visit and to conduct portions of the visit, as needed. I informed the patient (or authorized healthcare technical sales representative) that I reviewed their record and presented the opportunity for them to ask any questions regarding the visit today. The patient agreed to participate. Assessment & Plan (1) Noncompliance with medication regimen: (2) Hyperglycemia: (3) Open wound of left heel: (4) Skin infection: Plan Assessment: 62-year-old male with PMhx of diabetes, hyperlipidemia, hypertension, BPH, history of stroke, history of hyponatremia, history of septic shock in June 2022 secondary to necrotizing fasciitis of the right foot and was intubated and also complicated with DKA and UTI and periapical abscesses and facial infection s/p extensive aggressive debridement of right foot and findings were consistent with gas gangrene, osteomyelitis with necrotizing fasciitis s/p R BKA presented to [facility] on 07/21/2023 with left foot pain concern for infection. Pt initially started on Ceftriaxone then placed on Zosyn IV and Vancomycin IV. Xray showed no OM. Plan: - Recommend stopping Zosyn IV and continuing with Vancomycin IV alone alone given concern for infection. Image of wound in chart shows no sign of infectious process. Can consider switching from Vancomycin IV to Linezolid to complete 7-10 days if concern for infection still remains. At most, would consider a cellulitis. - we will sign off, no need for ID clinic appointment, please tiger text with issues, concerns, or questions. History of Present Illness History of Present Illness Reason: chronic LLE wound 62-year-old male with PMhx of diabetes, hyperlipidemia, hypertension, BPH, history of stroke, history of hyponatremia, history of septic shock in June 2022 secondary to necrotizing fasciitis of the right foot and was intubated and also complicated with DKA and UTI and periapical abscesses and facial infection s/p extensive aggressive debridement of right foot and findings were consistent with gas gangrene, osteomyelitis with necrotizing fasciitis s/p R BKA presented to [facility] on 07/21/2023 with left foot pain concern for infection. Pt initially started on Ceftriaxone then placed on Zosyn IV and Vancomycin IV. Xray showed no OM. ID consulted for evaluation and management of potential foot infection. Allergies Allergy/AdvReac Type Severity Reaction Status Date / Time aloe vera Allergy Unknown Unknown Verified 07/21/23 20:05 Sulfa (Sulfonamide AdvReac Mild Nausea Verified 07/21/23 20:05 Antibiotics) Home Medications Medication Instructions Recorded Confirmed Type ammonium lactate 12 % lotion 1 applic topical UD PRN dry skin 02/17/22 07/21/23 History on legs clopidogrel 75 mg tablet 75 mg PO QAM 02/17/22 07/22/23 History dutasteride 0.5 mg capsule 0.5 mg PO QAM 02/17/22 07/21/23 History empagliflozin 10 mg tablet 10 mg PO QAM 02/17/22 07/21/23 History (Jardiance) metoprolol tartrate 25 mg tablet 25 mg PO QAM 02/17/22 07/22/23 History olmesartan 40 mg tablet 40 mg PO QAM 02/17/22 07/22/23 History pantoprazole 40 mg tablet,delayed 40 mg PO QAM 02/17/22 07/22/23 History release rosuvastatin 10 mg tablet 10 mg PO QPM 02/17/22 07/22/23 History amlodipine 5 mg tablet 5 mg PO DAILY 06/23/22 07/22/23 History folic acid 1 mg tablet 1 mg PO DAILY 07/08/22 07/22/23 History vitamin B complex 1 tab PO DAILY 07/08/22 07/22/23 History Patient History Medical History Bacteremia Surgical complication involving skin Application of [place] Graft to Right Forefoot-03/28/22 Amputation toe Right 4th Toe- 02/27/22 S/P arteriogram of extremity Right leg, lithotripsy of proximal popliteal artery, mechanical closure of left femoral artery, 02/25/22 Diabetic ulcer of right fifth toe Cellulitis of toe of right foot Former smoker BPH (benign prostatic hyperplasia) Hyponatremia Mixed hyperlipidemia Essential hypertension Peripheral arterial disease Stroke July 2020 Right upper extremity weakness GERD (gastroesophageal reflux disease) Neuropathy Dyslipidemia Diabetes mellitus Obesity Osteomyelitis of right foot Surgical History S/P debridement Right foot debridement, wound vac application 02/21/22 History of incision and drainage partial excision of fifth ray of right foot, delayed primary closure 02/18/22 Family History Other Diabetes Social History Smoking Status: Current some day smoker Tobacco Type: Smokeless Tobacco (Dip or Chew) Second Hand Exposure: No; Do You Dip or Chew Tobacco: Yes; Tobacco Cessation Education Requested by Patient: Yes Hx Alcohol Use: Yes Hx Substance Use: No Preferred Language: Monegasque Communication Ability: Effective Mold Tooling Technician Required: No Beliefs That Will Affect Care: None marital status: Single Current Living Situation: Family Current Living Situation Comment: nephew living with patient How many Children do You have: 9 Other Information That Helps Us Care for You: No Feels Safe at Home: Yes Safety Concerns: Feels Safe At This Time Assistive Devices: Crutches, Walker and Wheelchair Review of Systems Reviewed all ROS, all negative Physical Exam NA Results & Data Vital Signs (Past 12 Hours) Vital Signs Temp Pulse Resp BP Pulse Ox O2 Del Method 07/24/23 07:21 36.5 C 61 16 167/72 H 94 Room Air Diagnostic Findings Left Foot Xray on 07/19/2023 FINDINGS: No acute fracture is identified within the left foot. No bony erosions are identified. There is extensive vascular calcification. There is mild dorsal soft tissue swelling. There are posterior and plantar calcaneal spurs. IMPRESSION: No radiographic evidence for acute osteomyelitis within the left foot. Right Foot Wound on 07/09/2022 Procedure Result Verified Site Gram Stain Final 07/09/22 Gram Stain Result Many WBCs Seen Moderate Gram Positive Cocci Aero/Shelia Cult Final 07/13/22 Organism 1 Staph aureus MRSA Quantity Few Sens No Sensitivities to Follow Organism 2 Bacteroides fragilis Quantity Moderate Sens No Sensitivities to Follow Organism 3 Micromonas micros Quantity Moderate Sens No Sensitivities to Follow Please see culture number [id number] for sensitivities. Source: Foot,Right OV Order: Ordered: Aer/Shelia Cult/Sm Comments: Comment deep culture right foot Procedure Result Verified Site Gram Stain Final 07/09/22 Gram Stain Result Many Gram Positive Cocci Few WBCs Seen Aero/Shelia Cult Final 07/13/22 Organism 1 Staph aureus MRSA Quantity Few Sens Sensitivities to Follow Organism 2 Bacteroides fragilis Quantity Moderate Sens No Sensitivities to Follow MRSA RX M.I.C. --- --------- Clindamycin S <=0.5 Daptomycin S <=0.5 Erythromycin S <=0.5 Oxacillin R >2 Rifampin S <=1 Tetracycline S <=4 Trimeth/Sulfa S <=0.5/9.5 Vancomycin S 2 S = SENSITIVE I = INTERMEDIATE R = RESISTANT Medications Administered Home Medications Medication Instructions Recorded Confirmed Last Taken ammonium lactate 12 % lotion 1 applic topical UD PRN dry skin 02/17/22 07/21/23 Unknown on legs clopidogrel 75 mg tablet 75 mg PO QAM 02/17/22 07/22/23 7 Months Ago ~12/20/22 dutasteride 0.5 mg capsule 0.5 mg PO QAM 02/17/22 07/21/23 07/21/23 empagliflozin 10 mg tablet 10 mg PO QAM 02/17/22 07/21/23 07/21/23 (Jardiance) metoprolol tartrate 25 mg tablet 25 mg PO QAM 02/17/22 07/22/23 7 Months Ago ~12/20/22 olmesartan 40 mg tablet 40 mg PO QAM 02/17/22 07/22/23 7 Months Ago ~12/20/22 pantoprazole 40 mg tablet,delayed 40 mg PO QAM 02/17/22 07/22/23 7 Months Ago release ~12/20/22 rosuvastatin 10 mg tablet 10 mg PO QPM 02/17/22 07/22/23 7 Months Ago ~12/20/22 amlodipine 5 mg tablet 5 mg PO DAILY 06/23/22 07/22/23 7 Months Ago ~12/20/22 folic acid 1 mg tablet 1 mg PO DAILY 07/08/22 07/22/23 7 Months Ago ~12/20/22 vitamin B complex 1 tab PO DAILY 07/08/22 07/22/23 7 Months Ago ~12/20/22 Active Medications Generic Name Dose Route Start Last Admin Trade Name Natalie PRN Reason Stop Dose Admin Acetaminophen 650 mg 07/22/23 03:28 07/24/23 02:24 Acetaminophen 325 Mg Tab PO 08/21/23 03:27 650 mg Q4H PRN Administration Pain or Fever Amlodipine Besylate 5 mg 07/24/23 16:00 07/24/23 17:37 Amlodipine Besylate 5 Mg Tab PO 08/23/23 15:59 5 mg DAILY HOANG Administration Enoxaparin Sodium 40 mg 07/22/23 09:00 07/24/23 08:59 Enoxaparin Inj 40 Mg/0.4 Ml Syr SQ 08/21/23 08:59 40 mg Q24H HOANG Administration Finasteride 5 mg 07/22/23 09:00 07/24/23 08:59 Finasteride 5 Mg Tab PO 08/21/23 08:59 5 mg QAM HOANG Administration Piperacillin Sod/Tazobactam 100 mls @ 25 mls/hr 07/22/23 21:00 07/24/23 13:54 Sod 4.5 gm/ Dextrose IV 07/29/23 20:59 25 mls/hr Q8H HOANG Administration Protocol Vancomycin HCl 1,000 mg/ 270 mls @ 200 mls/hr 07/23/23 20:00 07/24/23 13:54 Sodium Chloride IV 07/29/23 19:59 Infused Q8H HOANG Infusion Insulin Aspart 0 units 07/22/23 07:30 07/24/23 17:38 Insulin Aspart Per Unit Charge SC 08/21/23 07:29 6 units ACHS HOANG Administration Insulin Glargine 0 units 07/22/23 21:00 07/23/23 21:12 Lantus Per Unit Charge SC 08/21/23 20:59 15 units HS HOANG Administration Protocol Insulin Glargine 20 units 07/23/23 09:00 07/24/23 08:59 Lantus Per Unit Charge SC 08/22/23 08:59 20 units DAILY HOANG Administration Losartan Potassium 100 mg 07/24/23 16:00 07/24/23 17:37 Losartan Potassium 50 Mg Tab PO 08/23/23 15:59 100 mg DAILY HOANG Administration (3) Open wound of left heel Encounter type: initial encounter Qualified Code(s): S91.302A - Unspecified open wound, left foot, initial encounter
--- NOTE | 2023-07-24 15:52 | Hospitalist Progress Note ---
Date of Service July 24, 2023 Assessment & Plan (1) Unable to care for self: (2) Noncompliance with medication regimen: (3) Hyperglycemia: (4) Open wound of left heel: (5) Left foot infection: Plan This is a 62-year-old male with PMH significant for DM II, hyperlipidemia, h ypertension, BPH, history of stroke, history of hyponatremia, history of septic shock in June 2022 2/2 necrotizing fasciitis of the right foot requiring transfer to [facility] with BKA, also with complicating factors of DKA, UTI, periapical abscesses and facial infection s/p extensive aggressive debridement of right foot at with findings were consistent with gas gangrene, osteomyelitis with necrotizing fasciitis. Currently living at home with his nephew. Patient states not ambulating since last 6 months, is not taking any medications (other than BPH meds and Jardiance) and still has sutures present at BKA site. Was taken to PCP yesterday by family and was redirected to ED for further evaluation Family is concerned that he is not taking care of himself. Left foot infection Diabetic foot infection Admitted to med/surg Placed on Rocephin; however will discontinue in favor of vanco/zosyn Left foot wounds between toes and heel Consulted podiatry-do not feel osteomyelitis is present at this time, continue IV antibiotic treatment and podiatry follow-up Podiatry feels patient would benefit from discharge to rehab given lack of compliance with home care and inability to walk Podiatry recommending rehab for improved medication compliance, help with conditioning Wound culture growing MRSA, bacteroides fragilis, micromonas micros ID consult placed Appreciate wound care involvement, continue daily dressings Daily wound care, strict diabetes control PAD Concern for PAD given diminished pedal pulses and wounds on left lower extremity LLE arterial doppler with the mid to distal left peroneal artery is occluded. The profunda femoris artery is not visualized and could be occluded. Focal areas of hemodynamically significant stenosis within the left common femoral and distal left superficial femoral arteries. Evaluated by vascular surgery - Recommends pt undergo LLE angio with intervention on 07/27/23 Resumed statin Holding plavix for upcoming procedure Hx of R BKA 2/2 necrotizing fascitis of R foot s/p extensive debridement and BKA this was done in Dr Oscar Voss 07/09/22 he continues to have sutures in place will consult podiatry Orthotics consult was placed, but they do not do BKA management; they recommend Vielka Hernandez out of [facility], T2DM, poorly controlled Has been without medication except Jardiance Lantus/NovoLog per protocol, consult lysine and pharmacy secondary to hyperglycemia and elevated anion gap A1c 10.0 Will need strict blood sugar control in setting of wounds At d/c pt may benefit from addition of metformin Elevated Anion gap -> resolved minimal elevation at 13, with ketones in urine bicarb 19, no indication for insulin gtt at this time continue current bag of fluids and basal/bolus insulin follow anion gap in am. pt at risk for euglycemic DKA in setting of Jardiance Hyperlipidemia Not taking medications Will follow lipid profile Hypertension Currently not taking medications Persistently elevated BPs, resumed home amlodipine, olmesartan, lopressor in AM History of BPH Resumed Avodart HFpEF EF 45-50% on echo done in June 2022 in setting of septic shock Echocardiogram from 07/21 revealed improved EF 55-60%, localized apical wall motion abnormality severe hypokinesis to dyskinesis involving the inferior posterior and apical inferior septal aspect. Basal wall segments are hyperdynamic, grade 1 diastolic dysfunction, no gross valvular disease Compared to prior echocardiogram in 2022 there is no significant change Resumed beta urth ann and ARB Currently euvolemic on exam DVT prophylaxis Lovenox Disposition med/surg Full code Patient was seen and examined in collaboration with, Dr. Sorenson, please see add endum I spent a total of 40 minutes coordinating, documenting, and providing care for this patient excluding time spent in the performance of separately billed services. Admission and Anticipated Discharge Date Admission Date: July 22, 2023 Supervising Physician Co-Signing Physician Notes I have seen and discussed the case with the collaborating advanced practitioner. I agree with the above PN. I have reviewed and confirmed the patients medical history, the findings on physical examination, and the patients diagnosis and treatment plan with Aureliano MURPHY and agree with the information documented. No significant over night events He denies any pain or discomfort. Patient declines repositioning and declines bedside commode, opting to soil self until clean. Discussed importance of self-repositioning if he wishes to not have nurses aid in this manner as patient already is with bed sores. Patient verbalized understanding. Plan to continue on current antibiotic Zosyn and vancomycin. Appreciate infectious disease input. Vascular surgery consulted for finding in duplex scan of lower extremity Continue wound care PT OT ordered Case management on board; appreciate recommendation. Plan for angioplasty with Vascular on 07/26 I spent a total of 35 minutes coordinating, documenting, and providing care for this patient excluding time spent in the performance of separately billed services. All of the aforementioned completed outside of collaborating with the assigned advanced practitioner for a full treatment plan. I have reviewed the advanced practitioner's documentation, and I agree with, and take responsibility for the plan of care Patient seen and examined independently. Discussed with above provider. Subjective Patient seen and examined in 384 today in follow-up for chronic left lower extremity wounds. Denies any acute changes overnight. Pain in legs is controlled. Went over how to use incentive spirometry due to patient lying in d ependent position. Encouraged ambulation, even moving to bedside chair. No fever, chills, chest pain, shortness of breath, nausea, vomiting, abdominal pain, dysuria, diarrhea or constipation. Discussed plans for vascular intervention on Thursday. Review of Systems Review of Systems: At least ten systems reviewed and negative except as noted in the HPI. Physical Exam Physical Exam: Gen: WD/WN, NAD, laying in bed, A&Ox3 HEENT: Normocephalic, atraumatic, conjunctivae moist, sclerae anicteric, mucous membranes moist Lung: Clear to Auscultation bilaterally, no wheezes/rales/rhonchi Heart: Regular rate, regular rhythm, no murmurs, rubs, or gallops Abdomen: Soft, NT, ND +BS x 4 Extremities: RLE BKA, incision well-healed however sutures are still intact, no surrounding erythema, LLE warm, trace edema, diminished pedal pulses, wounds in between toes and deep tissue injury to heel Skin: Warm, no rash Results & Data Results & Data Vital Signs (Past 12 Hours) Vital Signs Temp Pulse Resp BP BP Pulse Ox O2 Del Method 07/24/23 14:43 36.7 C 60 16 178/83 H 96 Room Air 07/24/23 07:21 36.5 C 61 16 167/72 H 94 Room Air Laboratory Results Short CBC 07/24/23 Range/Units 05:41 WBC 6.23 (4.8-10.8) K/ul Hgb 12.5 L (14.0-18.0) g/dl Hct 41.2 L (42.0-52.0) % Plt Count 206 (130-400) K/uL BMP 07/24/23 05:41 Sodium 137 Potassium 3.9 Chloride 108 H Carbon Dioxide 22 BUN 16 Creatinine 0.82 Glucose 121 H Calcium 8.8 Diagnostic Findings Duplex Scan Lower Extremity Artery 07/22/23 14:27 US arterial duplex left lower extremity CLINICAL HISTORY: Left lower extremity wound. COMPARISON STUDY: CT angiogram runoff 02/18/2022. FINDINGS: Monophasic to biphasic waveforms in the left common femoral, left superficial femoral, popliteal arteries. Monophasic waveforms within the visualized left calf arteries. Elevated peak systolic velocity within the left common femoral artery of 202 cm/s suggestive of an area of stenosis. There is a focal area of elevated peak systolic velocity within the distal left superficial femoral artery of 305 cm/s consistent with stenosis. The left profunda femoris artery is not visualized. The mid to distal peroneal artery is likely occluded. Normal velocities within the anterior tibial, posterior tibial, dorsalis pedis arteries. The patient deferred evaluation of the ankle brachial indices. IMPRESSION: 1. 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 2. The profunda femoris artery is not visualized and could be occluded. 3. Focal areas of hemodynamically significant stenosis within the left common femoral and distal left superficial femoral arteries. ACT 112: Negative or not required by law. Electronically signed by: Mau Hewitt M.D. 07/23/2023 7:05 AM Foot X-Ray 07/22/23 15:04 XR foot LT 2V CLINICAL HISTORY: Wound. COMPARISON: None FINDINGS: No acute fracture is identified within the left foot. No bony erosions are identified. There is extensive vascular calcification. There is mild dorsal soft tissue swelling. There are posterior and plantar calcaneal spurs. IMPRESSION: No radiographic evidence for acute osteomyelitis within the left foot. ACT 112: Negative or not required by law. Electronically signed by: Jack Hairston M.D. 07/22/2023 5:41 PM (4) Open wound of left heel Encounter type: initial encounter Qualified Code(s): S91.302A - Unspecified open wound, left foot, initial encounter
[2023-07-24] MEDS ORDERED: AMMONIUM LACTATE 12% LOTION 225 GM BTL EXT PRN (15:56)
[2023-07-24] MEDS: LOSARTAN POTASSIUM 50 MG TAB PO SCH (17:37)
[2023-07-24] MEDS: amLODIPine BESYLATE 5 MG TAB PO SCH (17:37)
[2023-07-24] MEDS: ROSUVASTATIN CALCIUM 10 MG TAB PO SCH (20:36)
[2023-07-25 05:56] LABS: Hematocrit (blood only) 39.4 % (42.0-52.0); Hemoglobin 12.5 g/dl (14.0-18.0); Mean Corpuscular Hemoglobin 25.6 pg (25.0-34.0); Mean Corpuscular Hgb Conc 31.7 g/dL (32.0-36.0); Mean Corpuscular Volume 80.6 fL (80.0-100.0); Mean Platelet Volume 9.3 fL (9.4-12.4); Platelet Count 226 K/uL (130-400); RDW Coefficient of Variation 13.9 % (11.5-14.5); RDW Standard Deviation 40.8 fL (36.4-46.3); Red Blood Count 4.89 M/uL (4.70-6.10); White Blood Count 7.14 K/ul (4.8-10.8)
[2023-07-25 06:12] LABS: BUN Creatinine Ratio 19.4 (10-20); Calcium 8.8 mg/dl (8.6-10.3); Creatinine Clr Calc Pharmacy 135.7 ml/min; Est GFR (Non-African American) 104.4 ml/min; Potassium 3.8 mmol/L (3.5-5.1)
[2023-07-25] MEDS: PANTOprazole 40 MG TAB PO SCH (08:45)
[2023-07-25] MEDS: METOPROLOL TARTRATE 25 MG TAB PO SCH (08:45)
[2023-07-25] MEDS: VITAMIN B COMPLEX TAB PO SCH (08:45)
[2023-07-25] MEDS: FOLIC ACID 1 MG TAB PO SCH (08:46)
[2023-07-25] MEDS: EMPAGLIFLOZIN 10 MG TAB PO SCH (08:47)
--- NOTE | 2023-07-25 12:24 | Hospitalist Progress Note ---
Date of Service July 25, 2023 Assessment & Plan (1) Unable to care for self: (2) Noncompliance with medication regimen: (3) Hyperglycemia: (4) Open wound of left heel: (5) Left foot infection: Plan This is a 62-year-old male with PMH significant for DM II, hyperlipidemia, h ypertension, BPH, history of stroke, history of hyponatremia, history of septic shock in June 2022 2/2 necrotizing fasciitis of the right foot requiring transfer to [facility] with BKA, also with complicating factors of DKA, UTI, periapical abscesses and facial infection s/p extensive aggressive debridement of right foot at with findings were consistent with gas gangrene, osteomyelitis with necrotizing fasciitis. Currently living at home with his nephew. Patient states not ambulating since last 6 months, is not taking any medications (other than BPH meds and Jardiance) and still has sutures present at BKA site. Was taken to PCP yesterday by family and was redirected to ED for further evaluation Family is concerned that he is not taking care of himself. #Noncompliance noted -Noncompliance with appointments and medications -Right sutures in BKA stump for over a year -Remove sutures Encourage importance of medication compliance #Left foot infection #Diabetic foot infection Admitted to med/surg noted to have left foot wounds between toes and heel Consulted podiatry-do not feel osteomyelitis is present at this time, continue IV antibiotic treatment and podiatry follow-up -OM not noted on imaging Podiatry feels patient would benefit from discharge to rehab given lack of compliance with home care and inability to walk Podiatry recommending rehab for improved medication compliance, help with conditioning Wound culture growing MRSA, bacteroides fragilis, micromonas micros ID consult placed -Transition to linezolid with plans for 7 day course s/p 07/26 intervention Appreciate wound care involvement, continue daily dressings Daily wound care, strict diabetes control #PAD of LLE Concern for PAD given diminished pedal pulses and wounds on left lower extremity LLE arterial doppler with the mid to distal left peroneal artery is occluded. The profunda femoris artery is not visualized and could be occluded. Focal areas of hemodynamically significant stenosis within the left common femoral and distal left superficial femoral arteries. Evaluated by vascular surgery - Recommends pt undergo LLE angio with intervention on 07/27/23 Continue statin Holding plavix for upcoming procedure #s/p of R BKA 2/2 necrotizing fascitis of R foot s/p extensive debridement and BKA this was done in [place], Dr Moore 07/09/22 he continues to have sutures in place will consult podiatry Orthotics consult was placed, but they do not do BKA management; they recommend Vielka Hernandez out of [facility], #T2DM, poorly controlled Has been without medication except Jardiance Lantus/NovoLog per protocol, consult lysine and pharmacy secondary to hyperglycemia and elevated anion gap A1c 10.0 Will need strict blood sugar control in setting of wounds At d/c pt may benefit from addition of metformin Hold Jardiance prior to surgical intervention #Elevated Anion gap -> resolved minimal elevation at 13, with ketones in urine bicarb 19, no indication for insulin gtt at this time continue current bag of fluids and basal/bolus insulin follow anion gap in am. pt at risk for euglycemic DKA in setting of Jardiance #Hyperlipidemia Continue statin #Hypertension Currently not taking medications Persistently elevated BPs, resumed home amlodipine, olmesartan, lopressor #History of BPH Resumed Avodart #HFpEF EF 45-50% on echo done in June 2022 in setting of septic shock Echocardiogram from 07/21 revealed improved EF 55-60%, localized apical wall motion abnormality severe hypokinesis to dyskinesis involving the inferior posterior and apical inferior septal aspect. Basal wall segments are hyperdynamic, grade 1 diastolic dysfunction, no gross valvular disease Compared to prior echocardiogram in 2022 there is no significant change Resumed beta ruth ann and ARB Currently euvolemic on exam DVT prophylaxis Lovenox Disposition med/surg Full code Admission and Anticipated Discharge Date Admission Date: July 22, 2023 Subjective NAEO Physical Exam Constitutional: WD/WN, vitals as above Musculoskeletal: right BKA with sutures in place Results & Data Results & Data Vital Signs (Past 12 Hours) Vital Signs Temp Pulse Resp BP Pulse Ox O2 Del Method 07/25/23 08:15 Room Air 07/25/23 07:47 36.6 C 67 16 161/81 H 97 Room Air 07/25/23 01:15 Room Air Laboratory Results Short CBC 07/25/23 Range/Units 05:32 WBC 7.14 (4.8-10.8) K/ul Hgb 12.5 L (14.0-18.0) g/dl Hct 39.4 L (42.0-52.0) % Plt Count 226 (130-400) K/uL [facility] 07/25/23 05:32 Sodium 137 Potassium 3.8 Chloride 107 Carbon Dioxide 24 BUN 13 Creatinine 0.67 Glucose 116 H Calcium 8.8 Medications Administered Home Medications Medication Instructions Recorded Confirmed Last Taken ammonium lactate 12 % lotion 1 applic topical UD PRN dry skin 02/17/22 07/21/23 Unknown on legs clopidogrel 75 mg tablet 75 mg PO QAM 02/17/22 07/22/23 7 Months Ago ~12/20/22 dutasteride 0.5 mg capsule 0.5 mg PO QAM 02/17/22 07/21/23 07/21/23 empagliflozin 10 mg tablet 10 mg PO QAM 02/17/22 07/21/23 07/21/23 (Jardiance) metoprolol tartrate 25 mg tablet 25 mg PO QAM 02/17/22 07/22/23 7 Months Ago ~12/20/22 olmesartan 40 mg tablet 40 mg PO QAM 02/17/22 07/22/23 7 Months Ago ~12/20/22 pantoprazole 40 mg tablet,delayed 40 mg PO QAM 02/17/22 07/22/23 7 Months Ago release ~12/20/22 rosuvastatin 10 mg tablet 10 mg PO QPM 02/17/22 07/22/23 7 Months Ago ~12/20/22 amlodipine 5 mg tablet 5 mg PO DAILY 06/23/22 07/22/23 7 Months Ago ~12/20/22 folic acid 1 mg tablet 1 mg PO DAILY 07/08/22 07/22/23 7 Months Ago ~12/20/22 vitamin B complex 1 tab PO DAILY 07/08/22 07/22/23 7 Months Ago ~12/20/22 Active Medications Generic Name Dose Route Start Last Admin Trade Name Freq PRN Reason Stop Dose Admin Acetaminophen 650 mg 07/22/23 03:28 07/24/23 02:24 Acetaminophen 325 Mg Tab PO 08/21/23 03:27 650 mg Q4H PRN Administration Pain or Fever Amlodipine Besylate 5 mg 07/24/23 16:00 07/25/23 08:46 Amlodipine Besylate 5 Mg Tab PO 08/23/23 15:59 5 mg DAILY HOANG Administration Empagliflozin 10 mg 07/25/23 09:00 07/25/23 08:47 Empagliflozin 10 Mg Tab PO 08/24/23 08:59 10 mg QAM HOANG Administration Enoxaparin Sodium 40 mg 07/22/23 09:00 07/25/23 08:46 Enoxaparin Inj 40 Mg/0.4 Ml Syr SQ 08/21/23 08:59 40 mg Q24H HOANG Administration Finasteride 5 mg 07/22/23 09:00 07/25/23 08:46 Finasteride 5 Mg Tab PO 08/21/23 08:59 5 mg QAM HOANG Administration Folic Acid 1 mg 07/25/23 09:00 07/25/23 08:46 Folic Acid 1 Mg Tab PO 08/24/23 08:59 1 mg DAILY HOANG Administration Insulin Aspart 0 units 07/22/23 07:30 07/25/23 08:41 Insulin Aspart Per Unit Charge [place] 08/21/23 07:29 7 units ACHS HOANG Administration Insulin Glargine 0 units 07/22/23 21:00 07/24/23 20:39 Lantus Per Unit Charge [place] 08/21/23 20:59 20 units HS HOANG Administration Protocol Insulin Glargine 20 units 07/23/23 09:00 07/25/23 08:42 Lantus Per Unit Charge [place] 08/22/23 08:59 20 units DAILY HOANG Administration Losartan Potassium 100 mg 07/24/23 16:00 07/25/23 08:45 Losartan Potassium 50 Mg Tab PO 08/23/23 15:59 100 mg DAILY HOANG Administration Metoprolol Tartrate 25 mg 07/25/23 09:00 07/25/23 08:45 Metoprolol Tartrate 25 Mg Tab PO 08/24/23 08:59 25 mg QAM HOANG Administration Pantoprazole Sodium 40 mg 07/25/23 09:00 07/25/23 08:45 Pantoprazole 40 Mg Tab PO 08/24/23 08:59 40 mg QAM HOANG Administration Rosuvastatin Calcium 10 mg 07/24/23 21:00 07/24/23 20:36 Rosuvastatin Calcium 10 Mg Tab PO 08/23/23 20:59 10 mg QPM HOANG Administration Vitamin B Complex 1 tab 07/25/23 09:00 07/25/23 08:45 Vitamin B Complex Tab PO 08/24/23 08:59 1 tab DAILY HOANG Administration (4) Open wound of left heel Encounter type: initial encounter Qualified Code(s): S91.302A - Unspecified open wound, left foot, initial encounter
[2023-07-25] MEDS: LINEZOLID 600 MG TAB PO SCH (19:20)
[2023-07-26 06:10] LABS: Hematocrit (blood only) 44.1 % (42.0-52.0); Hemoglobin 13.3 g/dl (14.0-18.0); Mean Corpuscular Hemoglobin 25.1 pg (25.0-34.0); Mean Corpuscular Hgb Conc 30.2 g/dL (32.0-36.0); Mean Corpuscular Volume 83.2 fL (80.0-100.0); Mean Platelet Volume 9.4 fL (9.4-12.4); Platelet Count 232 K/uL (130-400); RDW Standard Deviation 42.5 fL (36.4-46.3); White Blood Count 6.76 K/ul (4.8-10.8)
[2023-07-26 06:52] LABS: BUN Creatinine Ratio 21.7 (10-20); Calcium 9.4 mg/dl (8.6-10.3); Creatinine Clr Calc Pharmacy 131.8 ml/min; Est GFR (African American) 119.6 ml/min; Est GFR (Non-African American) 103.2 ml/min; Potassium 3.8 mmol/L (3.5-5.1)
--- NOTE | 2023-07-26 07:15 | Hospitalist Progress Note ---
Date of Service July 26, 2023 Assessment & Plan (1) Unable to care for self: (2) Noncompliance with medication regimen: (3) Hyperglycemia: (4) Open wound of left heel: (5) Left foot infection: Plan This is a 62-year-old male with PMH significant for DM II, hyperlipidemia, h ypertension, BPH, history of stroke, history of hyponatremia, history of septic shock in June 2022 2/2 necrotizing fasciitis of the right foot requiring transfer to [facility] [place], also with complicating factors of DKA, UTI, periapical abscesses and facial infection s/p extensive aggressive debridement of right foot at with findings were consistent with gas gangrene, osteomyelitis with necrotizing fasciitis. Currently living at home with his nephew. Patient states not ambulating since last 6 months, is not taking any medications (other than BPH meds and Jardiance) and still has sutures present at BKA site. Was taken to PCP yesterday by family and was redirected to ED for further evaluation Family is concerned that he is not taking care of himself. #Vertigo, positional-left side -vertigo and nystagmus on left side only, resolves with repositioning, no reports of continued vertigo concern for BPPV -Maxi maneuver with PT ordered #Noncompliance noted -Noncompliance with appointments and medications -Right sutures in BKA stump for over a year -Removed sutures from stump on 07/24 Encourage importance of medication compliance #Left foot infection #Diabetic foot infection Admitted to med/surg noted to have left foot wounds between toes and heel Consulted podiatry-do not feel osteomyelitis is present at this time, continue IV antibiotic treatment and podiatry follow-up -OM not noted on imaging Podiatry feels patient would benefit from discharge to rehab given lack of compliance with home care and inability to walk Podiatry recommending rehab for improved medication compliance, help with conditioning Wound culture growing MRSA, bacteroides fragilis, micromonas micros ID consult placed -Transition to linezolid with plans for 7 day course s/p 07/26 intervention Appreciate wound care involvement, continue daily dressings Daily wound care, strict diabetes control #PAD of LLE Concern for PAD given diminished pedal pulses and wounds on left lower extremity LLE arterial doppler with the mid to distal left peroneal artery is occluded. The profunda femoris artery is not visualized and could be occluded. Focal areas of hemodynamically significant stenosis within the left common femoral and distal left superficial femoral arteries. Evaluated by vascular surgery - Recommends pt undergo LLE angio with intervention on 07/27/23 Continue statin Holding plavix for upcoming procedure NPO midnight #s/p of R BKA 2/2 necrotizing fascitis of R foot s/p extensive debridement and BKA this was done in [place], Dr Moore 07/09/22 he continues to have sutures in place will consult podiatry Orthotics consult was placed, but they do not do BKA management; they recommend Vielka Hernandez out of [facility], #T2DM, poorly controlled Has been without medication except Jardiance Lantus/NovoLog per protocol, consult lysine and pharmacy secondary to hyperglycemia and elevated anion gap A1c 10.0 Will need strict blood sugar control in setting of wounds At d/c pt may benefit from addition of metformin Hold Jardiance prior to surgical intervention #Elevated Anion gap -> resolved minimal elevation at 13, with ketones in urine bicarb 19, no indication for insulin gtt at this time continue current bag of fluids and basal/bolus insulin follow anion gap in am. pt at risk for euglycemic DKA in setting of Jardiance--held prior to procedure #Hyperlipidemia Continue statin #Hypertension Currently not taking medications Persistently elevated BPs, resumed home amlodipine, olmesartan, lopressor #History of BPH Resumed Avodart #HFpEF EF 45-50% on echo done in June 2022 in setting of septic shock Echocardiogram from 07/21 revealed improved EF 55-60%, localized apical wall motion abnormality severe hypokinesis to dyskinesis involving the inferior posterior and apical inferior septal aspect. Basal wall segments are hyperdynamic, grade 1 diastolic dysfunction, no gross valvular disease Compared to prior echocardiogram in 2022 there is no significant change Resumed beta ruth ann and ARB Currently euvolemic on exam DVT prophylaxis Lovenox Disposition med/surg Full code Admission and Anticipated Discharge Date Admission Date: July 22, 2023 Admission and Anticipated Discharge Date Admission Date: July 22, 2023 Subjective Reports dizziness with leftward movement , denies any dizziness with right rolls Refuses to get out of bed and declines repositioning Denies chest pain, nausea, vomiting, or other acute concerns Physical Exam Constitutional: WD/WN, vitals as above Respiratory: normal respiratory effort, lungs clear to auscultation Cardiovascular: RRR, no murmur, no edema Gastrointestinal (Abdomen): normal bowel sounds, soft, nontender, no hepatosplenomegaly Musculoskeletal: sutures removed from right BKA Results & Data Results & Data Vital Signs (Past 12 Hours) Vital Signs Temp Pulse Resp BP Pulse Ox O2 Del Method 07/26/23 03:27 36.5 C 57 L 18 157/73 H 98 Room Air 07/25/23 21:49 Room Air Laboratory Results Short CBC 07/26/23 Range/Units 05:36 WBC 6.76 (4.8-10.8) K/ul Hgb 13.3 L (14.0-18.0) g/dl Hct 44.1 (42.0-52.0) % Plt Count 232 (130-400) K/uL [facility] 07/26/23 05:36 Sodium 138 Potassium 3.8 Chloride 107 Carbon Dioxide 24 BUN 15 Creatinine 0.69 Glucose 107 H Calcium 9.4 Medications Administered Home Medications Medication Instructions Recorded Confirmed Last Taken ammonium lactate 12 % lotion 1 applic topical UD PRN dry skin 02/17/22 07/21/23 Unknown on legs clopidogrel 75 mg tablet 75 mg PO QAM 02/17/22 07/22/23 7 Months Ago ~12/20/22 dutasteride 0.5 mg capsule 0.5 mg PO QAM 02/17/22 07/21/23 07/21/23 empagliflozin 10 mg tablet 10 mg PO QAM 02/17/22 07/21/23 07/21/23 (Jardiance) metoprolol tartrate 25 mg tablet 25 mg PO QAM 02/17/22 07/22/23 7 Months Ago ~12/20/22 olmesartan 40 mg tablet 40 mg PO QAM 02/17/22 07/22/23 7 Months Ago ~12/20/22 pantoprazole 40 mg tablet,delayed 40 mg PO QAM 02/17/22 07/22/23 7 Months Ago release ~12/20/22 rosuvastatin 10 mg tablet 10 mg PO QPM 02/17/22 07/22/23 7 Months Ago ~12/20/22 amlodipine 5 mg tablet 5 mg PO DAILY 06/23/22 07/22/23 7 Months Ago ~12/20/22 folic acid 1 mg tablet 1 mg PO DAILY 07/08/22 07/22/23 7 Months Ago ~12/20/22 vitamin B complex 1 tab PO DAILY 07/08/22 07/22/23 7 Months Ago ~12/20/22 Active Medications Generic Name Dose Route Start Last Admin Trade Name Natalie PRN Reason Stop Dose Admin Acetaminophen 650 mg 07/22/23 03:28 07/24/23 02:24 Acetaminophen 325 Mg Tab PO 08/21/23 03:27 650 mg Q4H PRN Administration Pain or Fever Amlodipine Besylate 5 mg 07/24/23 16:00 07/25/23 08:46 Amlodipine Besylate 5 Mg Tab PO 08/23/23 15:59 5 mg DAILY HOANG Administration Empagliflozin 10 mg 07/25/23 09:00 07/25/23 08:47 Empagliflozin 10 Mg Tab PO 08/24/23 08:59 10 mg QAM HOANG Administration Enoxaparin Sodium 40 mg 07/22/23 09:00 07/25/23 08:46 Enoxaparin Inj 40 Mg/0.4 Ml Syr SQ 08/21/23 08:59 40 mg Q24H HOANG Administration Finasteride 5 mg 07/22/23 09:00 07/25/23 08:46 Finasteride 5 Mg Tab PO 08/21/23 08:59 5 mg QAM HOANG Administration Folic Acid 1 mg 07/25/23 09:00 07/25/23 08:46 Folic Acid 1 Mg Tab PO 08/24/23 08:59 1 mg DAILY HOANG Administration Insulin Aspart 0 units 07/22/23 07:30 07/25/23 21:50 Insulin Aspart Per Unit Charge [place] 08/21/23 07:29 Not Given ACHS [facility] Insulin Glargine 0 units 07/22/23 21:00 07/25/23 21:49 Lantus Per Unit Charge [place] 08/21/23 20:59 15 units HS [facility] Administration Protocol Insulin Glargine 20 units 07/23/23 09:00 07/25/23 08:42 Lantus Per Unit Charge [place] 08/22/23 08:59 20 units DAILY HOANG Administration Linezolid 600 mg 07/25/23 18:00 07/25/23 19:20 Linezolid 600 Mg Tab PO 08/02/23 21:01 600 mg BID HOANG Administration Losartan Potassium 100 mg 07/24/23 16:00 07/25/23 08:45 Losartan Potassium 50 Mg Tab PO 08/23/23 15:59 100 mg DAILY HOANG Administration Metoprolol Tartrate 25 mg 07/25/23 09:00 07/25/23 08:45 Metoprolol Tartrate 25 Mg Tab PO 08/24/23 08:59 25 mg QAM HOANG Administration Pantoprazole Sodium 40 mg 07/25/23 09:00 07/25/23 08:45 Pantoprazole 40 Mg Tab PO 08/24/23 08:59 40 mg QAM HOANG Administration Rosuvastatin Calcium 10 mg 07/24/23 21:00 07/25/23 21:50 Rosuvastatin Calcium 10 Mg Tab PO 08/23/23 20:59 10 mg QPM HOANG Administration Vitamin B Complex 1 tab 07/25/23 09:00 07/25/23 08:45 Vitamin B Complex Tab PO 08/24/23 08:59 1 tab DAILY HOANG Administration (4) Open wound of left heel Encounter type: initial encounter Qualified Code(s): S91.302A - Unspecified open wound, left foot, initial encounter
[2023-07-26] MEDS: LANTUS PER UNIT CHARGE SC SCH (21:15)
[2023-07-27 06:20] LABS: Hematocrit (blood only) 42.2 % (42.0-52.0); Hemoglobin 13.3 g/dl (14.0-18.0); Mean Corpuscular Hemoglobin 25.6 pg (25.0-34.0); Mean Corpuscular Hgb Conc 31.5 g/dL (32.0-36.0); Mean Corpuscular Volume 81.2 fL (80.0-100.0); Mean Platelet Volume 9.4 fL (9.4-12.4); Platelet Count 229 K/uL (130-400); RDW Standard Deviation 40.9 fL (36.4-46.3); White Blood Count 7.14 K/ul (4.8-10.8)
[2023-07-27] MEDS ORDERED: Nursing to Pharmacy Communication SCH ×3 (06:30→17:00)
[2023-07-27] MEDS: INSULIN ASPART PER UNIT CHARGE SC SCH ×2 (06:41→12:48)
[2023-07-27 06:48] LABS: BUN Creatinine Ratio 19.5 (10-20); Calcium 9.3 mg/dl (8.6-10.3); Creatinine Clr Calc Pharmacy 118.1 ml/min; Est GFR (African American) 114.3 ml/min; Est GFR (Non-African American) 98.6 ml/min; Potassium 3.6 mmol/L (3.5-5.1)
[2023-07-27] MEDS: SODIUM CHLORIDE 0.9% 1,000 ML IV SCH (07:20)
--- NOTE | 2023-07-27 08:04 | History & Physical Bridge Note ---
Date of Service July 27, 2023 History & Physical Bridge Note I have examined the patient, reviewed the History & Physical and in the interval since the performance of the History & Physical I have noted the following changes of clinical significance: no changes noted
[2023-07-27] MEDS ORDERED: ceFAZolin 2000MG 2,000 MG/15 ML SYR IV ONE (08:05)
--- NOTE | 2023-07-27 08:06 | Pre Anesthesia Assessment ---
Date of Service July 27, 2023 Pre Sedation Assessment Vital Signs Temp Pulse Resp BP BP Pulse Ox O2 Del Method 07/27/23 07:10 36.8 C 58 L 20 163/70 H 167/76 H 95 Room Air 07/27/23 06:49 36.7 C 55 L 16 165/83 H 97 Room Air 07/26/23 20:45 36.8 C 60 15 147/70 H 94 Room Air 07/26/23 15:16 36.4 C L 59 L 16 158/84 H 96 Room Air 07/26/23 09:10 57 L 95 Room Air Cardiovascular RRR, no murmur, no edema Respiratory normal respiratory effort, lungs clear to auscultation Pre-Sedation Airway Assessment Smoking Status: Current some day smoker Hx Sleep Apnea: No Short, Thick Neck: Yes Thyromental Distance: > or= 3.5 Finger Breadths Oral Cavity: + Dental Abnormalities Mallampati Class: III ASA: ASA3 NPO Status Date of Last Intake of Fluids: 07/26/23 Time of Last Intake of Fluids: 21:00 Date of Last Intake of Solid Food: 07/26/23 Time of Last Intake of Solid Foods: 19:00 Procedure Planning Contraindications for Sedation: none Current Medications Reviewed: Yes Notes The planned sedation has been discussed with the patient. Informed Consent was obtained. I have identified the patient, determined the appropriateness of sedation and have assessed the patient immediately prior to the procedure. All medicine(s) and interventions are by my order.
[2023-07-27] MEDS: MIDAZOLAM HCL 1 MG/ML 2ML VIAL ONE ×2 (08:44→09:37)
[2023-07-27] MEDS: fentaNYL citrate PF 100 MCG/2 ML VIAL ONE ×3 (08:44→09:52)
[2023-07-27] MEDS: ceFAZolin 2000MG 2,000 MG/15 ML SYR IV SCH (08:59)
[2023-07-27] MEDS: HEPARIN SOD (PORCINE) 1000 UNIT/ML ONE (09:20)
[2023-07-27] MEDS: PROTAMINE SULFATE 10 MG/ML 5 ML VIAL IV ONE (10:00)
--- NOTE | 2023-07-27 10:09 | Post Operative Brief Note ---
Immediate Post Op Note v1 Date of Surgery July 27, 2023 Pre & Post Diagnosis Operation Date: 07/27/23 08:00 Pre-Op Diagnosis: Left SFA Stenosis Post-Op Diagnosis: Left SFA Stenosis with AV Fistula I identified the patient and participated in the time-out.: Yes Procedure Operation Date: 07/27/23 08:00 Actual Procedures p Left Lower Extremity Arteriogram, Ultrasound Localization of Right Femoral Artery, Percutaneous Transluminal Angioplasty and Stenting of Left Superficial Femoral Artery, Mechanical Closure of Right Femoral Artery, Moderate Sedation 0844 - 1012(Left) - Howard Ocampo MD Surgeon Howard Ocampo MD Orthopaedic Physician Assistant MD Negin Estimated Blood Loss 20 Findings Consistent with Post-Op Diagnosis Anesthesia Type RN Sedation Complications none Disposition Accompanied Patient To Recovery: No Disposition: Recovery Room
--- NOTE | 2023-07-27 10:25 | Operative Report ---
Post Operative Report Pre & Post Diagnosis Operation Date: 07/27/23 08:00 Pre-Op Diagnosis: Left SFA Stenosis Post-Op Diagnosis: Left SFA Stenosis with AV Fistula I identified the patient and participated in the time-out.: Yes Procedure Operation Date: 07/27/23 08:00 Actual Procedures p Left Lower Extremity Arteriogram with Intervention, Ultrasound Localization of Right Femoral Artery, Percutaneous Transluminal Angioplasty and Stenting of Left Superficial Femoral Artery, Mechanical Closure of Right Femoral Artery, Moderate Sedation 0844 - (Left) - Howard Ocampo MD Surgeon Howard Ocampo MD Roofing Machine Operator Charles Worley MD Estimated Blood Loss 20 Findings Consistent with Post-Op Diagnosis Aorta and bilateral common and external iliac arteries without stenosis. Patent hypogastric arteries bilaterally. Patent CASE PACKER AND SEALER and profunda on left. Left distal SFA with multifocal <50% stenosis and a chronic AVF. Patent popliteal artery with in line AT and PT runoff to the foot. Distal SFA stenosis resolved and AVF covered following stent placement Specimens None Anesthesia Type MAC Complications None Disposition Accompanied Patient To Recovery: No Indications 62 year old male with history of PAD and chronic limb ischemia of the left leg with SFA stenosis seen on imaging. Description of Procedure The patient was taken to the operating room and placed in a supine position. Patient on sheduled antibiotics which were continued as ordered. Conscious sedation was given, Versed and Fentanyl. The right and left groin were prepped and draped in the usual sterile fashion. Using ultrasound guidance, the right CASE PACKER AND SEALER was accessed using micropuncture technique. The J wire advanced into the left common femoral artery and the micropuncture needle was exchanged for a 5Fr sheath. The J wire was removed and an 0.35'' angled glide wire was advanced into the infrarenal aorta followed by a Rim Catheter. The Rim Catheter was used to advance the angled glide wire into the right common iliac artery. The Rim Catheter was exchanged for an angled glide catheter and the wire was advanced into the CASE PACKER AND SEALER, and finally the SFA. The angled glide catheter was advanced to the proximal CASE PACKER AND SEALER and a diagnostic angiogram of the left lower extremity was performed, significant for 75% stenosis of the distal SFA as well as a chronic appearing AVF between the distal SFA and femoral vein. A stiff angled glide wire was then advanced into the SFA, 7000U IV heparin given, and the 5Fr sheath was exchanged for a 7Fr 45cm destination sheath. The angled glide wire was advanced distal to the stenosis and AVF and exchanged for a 0.018'' V18 guidewire through a QuickCross catheter. A 6mm x 10cm Viabahn stent was then advanced accross the region of stenosis and the AVF and deployed. Post-dilated 6mm x 100mm balloon with resolution of the stenosis but persistence of the AVF. A 6mm x 2.5cm Viabahn was then placed at the proximal portion of the prior stent extending up the SFA and deployed, covering the remaining branch vessel feeding the AVF. This was post-dilated with the prior balloon. Completion imaging with resolution of stenosis and AVF. The wire and balloon were then removed and a 0.035" angled glide wire advanced through the Destination sheath. The destination sheath was then removed and exchanged for the Angiostar short catheter. The Angiostar device was deployed without difficulty, but there was still bleeding from the access site. Pressure was then held for 15min. 25U protamine was administered. Hemostasis was obtained. PT and DP signals, multiphasic, were confirmed. The patient was transferred to the PACU in stable condition. Dr. Ocampo was present and scrubbed for the entire procedure. I attest to the content of the Intraoperative Record and any orders documented therein. Any exceptions are noted below. Supervising Physician Co-Signing Physician Notes Howard Ocampo MD
[2023-07-27] MEDS: LIDOCAINE 1% LOCAL 20 ML VIAL ONE (10:35)
[2023-07-27] MEDS: VISIPAQUE IV PRN (10:37)
[2023-07-27] MEDS: LANTUS PER UNIT CHARGE SC SCH (11:14)
--- NOTE | 2023-07-27 12:00 | Hospitalist Progress Note ---
Date of Service July 27, 2023 Assessment & Plan (1) Unable to care for self: (2) Noncompliance with medication regimen: (3) Hyperglycemia: (4) Open wound of left heel: (5) Left foot infection: Plan This is a 62-year-old male with PMH significant for DM II, hyperlipidemia, hy pertension, BPH, history of stroke, history of hyponatremia, history of septic shock in June 2022 2/2 necrotizing fasciitis of the right foot requiring transfer to [facility] with BKA, also with complicating factors of DKA, UTI, periapical abscesses and facial infection s/p extensive aggressive debridement of right foot at with findings were consistent with gas gangrene, osteomyelitis with necrotizing fasciitis. Currently living at home with his nephew. Patient states not ambulating since last 6 months, is not taking any medications (other than BPH meds and Jardiance) and still has sutures present at BKA site. Was taken to PCP yesterday by family and was redirected to ED for further evaluation Family is concerned that he is not taking care of himself. #Vertigo, positional-left side -vertigo and nystagmus on left side only, resolves with repositioning, no reports of continued vertigo concern for BPPV -Maxi maneuver with PT ordered -denies dizziness today #Noncompliance noted -Noncompliance with appointments and medications -Right sutures in BKA stump for over a year -Removed sutures from stump on 07/24 Encourage importance of medication compliance #Left foot infection #Diabetic foot infection Admitted to med/surg noted to have left foot wounds between toes and heel Consulted podiatry-do not feel osteomyelitis is present at this time, continue IV antibiotic treatment and podiatry follow-up OM not noted on imaging Podiatry feels patient would benefit from discharge to rehab given lack of compliance with home care and inability to walk Podiatry recommending rehab for improved medication compliance, help with conditioning Wound culture growing MRSA, bacteroides fragilis, micromonas micros ID consult placed -Transition to linezolid with plans for 7 day course s/p 07/26 intervention Appreciate wound care involvement, continue daily dressings Daily wound care, strict diabetes control #PAD of LLE Concern for PAD given diminished pedal pulses and wounds on left lower extremity LLE arterial doppler with the mid to distal left peroneal artery is occluded. The profunda femoris artery is not visualized and could be occluded. Focal areas of hemodynamically significant stenosis within the left common femoral and distal left superficial femoral arteries. Evaluated by vascular surgery S/P LLE angio 2/2 L SFA Stenosis with AV fistula s/p stent placement POD #0 Loaded with plavix post op, will resume 75mg daily in a.m. #s/p of R BKA 2/2 necrotizing fascitis of R foot s/p extensive debridement and BKA this was done in [place], Dr Moore 07/09/22 he continues to have sutures in place will consult podiatry Orthotics consult was placed, but they do not do BKA management; they recommend Vielka Hernandez out of [facility], #T2DM, poorly controlled Has been without medication except Jardiance Lantus/NovoLog per protocol, consult lysine and pharmacy secondary to hyperglycemia and elevated anion gap A1c 10.0 Will need strict blood sugar control in setting of wounds At d/c pt may benefit from addition of metformin Hold Jardiance prior to surgical intervention #Elevated Anion gap -> resolved minimal elevation at 13, with ketones in urine bicarb 19, no indication for insulin gtt at this time continue current bag of fluids and basal/bolus insulin follow anion gap in am. pt at risk for euglycemic DKA in setting of Jardiance--held prior to procedure #Hyperlipidemia Continue statin #Hypertension Currently not taking medications Persistently elevated BPs, resumed home amlodipine, olmesartan, lopressor #History of BPH Resumed Avodart #HFpEF EF 45-50% on echo done in June 2022 in setting of septic shock Echocardiogram from 07/21 revealed improved EF 55-60%, localized apical wall motion abnormality severe hypokinesis to dyskinesis involving the inferior posterior and apical inferior septal aspect. Basal wall segments are hyperdynamic, grade 1 diastolic dysfunction, no gross valvular disease Compared to prior echocardiogram in 2022 there is no significant change Resumed beta ruth ann and ARB Currently euvolemic on exam DVT prophylaxis Lovenox Disposition med/surg FULL CODE Pt was seen and examined in collaboration with Dr. Sorenson, please see addendum A total of 45 minutes was spent coordinating, documenting, and providing care for this patient excluding time spent in the performance of separately billed services. This included personally viewing all current laboratories and imaging studies, medication reconciliation, outpatient chart review, and discussion with specialists. Admission and Anticipated Discharge Date Admission Date: July 22, 2023 Supervising Physician Co-Signing Physician Notes I have seen and discussed the case with the collaborating advanced practitioner. I agree with the above PN. I have reviewed and confirmed the patients medical history, the findings on physical examination, and the patients diagnosis and treatment plan with Jorge MURPHY and agree with the information documented. In short, Mr. Rojas is a 62-year-old male now s/p p Left Lower Extremity Arteriogram, Ultrasound Localization of Right Femoral Artery, Percutaneous Transluminal Angioplasty and Stenting of Left Superficial Femoral Artery, Mechanical Closure of Right Femoral Artery. Patient tolerated post-op course. Maxi maneuver to be performed 07/27. Rest of plan as above. I spent a total of 25 minutes coordinating, documenting, and providing care for this patient excluding time spent in the performance of separately billed services. All of the aforementioned completed outside of collaborating with the assigned advanced practitioner for a full treatment plan. I have reviewed the advanced practitioner's documentation, and I agree with, and take responsibility for the plan of care Subjective Patient was seen and examined in room 384. Follow-up left lower extremity angioplasty with stent placement. He offers no postoperative complaints. He denies pain. He denies fever, chills, sweats, lightheadedness, dizziness, chest pain, short ness breath, nausea, vomiting or abdominal pain. He is requesting a diet. Review of Systems Review of Systems: All systems reviewed & are unremarkable except as noted in HPI & below Physical Exam Physical Exam: Gen: WD/WN, NAD, A&O x3, flat affected HEENT: Normocephalic, atraumatic, conjunctivae moist, sclerae anicteric, mucous membranes moist. Lung: lungs clear b/l Heart: Regular rate, regular rhythm Abdomen: Soft, NT, ND Extremities: R BKA residual Limb, LLE mild edema Skin: Warm, no rash, negative turgor. Results & Data Results & Data Vital Signs (Past 12 Hours) Vital Signs Temp Pulse Pulse Resp BP BP Pulse Ox 07/27/23 11:34 36.7 C 55 L 16 162/83 H 96 07/27/23 11:07 36.5 C 55 L 16 129/69 91 07/27/23 10:35 36.5 C 60 16 152/78 H 94 07/27/23 10:12 65 16 169/78 H 96 07/27/23 10:07 61 16 172/74 H 99 07/27/23 10:04 61 16 156/83 H 99 07/27/23 09:59 62 16 138/88 99 07/27/23 09:54 61 16 154/61 H 99 07/27/23 09:49 62 16 166/71 H 99 07/27/23 09:44 61 16 159/68 H 99 07/27/23 09:39 61 16 168/74 H 99 07/27/23 09:34 61 16 176/73 H 99 07/27/23 09:29 59 L 16 159/76 H 99 07/27/23 09:24 57 L 16 169/82 H 98 07/27/23 09:19 59 L 16 163/79 H 98 07/27/23 09:14 58 L 16 175/78 H 99 07/27/23 09:09 60 16 175/74 H 100 07/27/23 09:04 58 L 16 144/76 H 100 07/27/23 08:59 56 L 18 162/83 H 100 07/27/23 08:54 55 L 18 162/77 H 99 07/27/23 08:49 59 L 18 177/82 H 96 07/27/23 08:44 59 L 20 185/79 H 100 07/27/23 08:29 58 L 20 155/87 H 99 07/27/23 07:10 36.8 C 58 L 20 163/70 H 167/76 H 95 07/27/23 06:49 36.7 C 55 L 16 165/83 H 97 O2 Del Method O2 Flow Rate 07/27/23 11:34 Room Air 07/27/23 11:07 Room Air 07/27/23 10:35 Room Air 07/27/23 10:12 Room Air 07/27/23 10:07 Oxymask 6 07/27/23 10:04 Oxymask 6 07/27/23 09:59 Oxymask 6 07/27/23 09:54 Oxymask 6 07/27/23 09:49 Oxymask 6 07/27/23 09:44 Oxymask 6 07/27/23 09:39 Oxymask 6 07/27/23 09:34 Oxymask 6 07/27/23 09:29 Oxymask 6 07/27/23 09:24 Oxymask 6 07/27/23 09:19 Oxymask 6 07/27/23 09:14 Oxymask 6 07/27/23 09:09 Oxymask 6 07/27/23 09:04 Oxymask 6 07/27/23 08:59 Oxymask 6 07/27/23 08:54 Oxymask 6 07/27/23 08:49 Oxymask 6 07/27/23 08:44 Oxymask 6 07/27/23 08:29 Oxymask 6 07/27/23 07:10 Room Air 07/27/23 06:49 Room Air Diagnostic Findings Operation Date: 07/27/23 08:00 Pre-Op Diagnosis: Left SFA Stenosis Post-Op Diagnosis: Left SFA Stenosis with AV Fistula I identified the patient and participated in the time-out.: Yes Procedure Operation Date: 07/27/23 08:00 Actual Procedures p Left Lower Extremity Arteriogram, Ultrasound Localization of Right Femoral Artery, Percutaneous Transluminal Angioplasty and Stenting of Left Superficial Femoral Artery, Mechanical Closure of Right Femoral Artery, Moderate Sedation 0844 - 1012(Left) - Howard Ocampo MD Surgeon Howard Ocampo MD Freight Conductor MD Negin Estimated Blood Loss 20 Findings Consistent with Post-Op Diagnosis Anesthesia Type RN Sedation Complications none Disposition Accompanied Patient To Recovery: No Disposition: Recovery Room Medications Administered Current Inpatient Medications Acetaminophen (Acetaminophen 325 Mg Tab) 650 mg PO Q4H PRN PRN Reason: Pain or Fever Stop: 08/21/23 03:27 Last Admin: 07/24/23 02:24 Dose: 650 mg Amlodipine Besylate (Amlodipine Besylate 5 Mg Tab) 5 mg PO DAILY [facility] Stop: 08/23/23 15:59 Last Admin: 07/27/23 12:08 Dose: 5 mg Clopidogrel Bisulfate (Clopidogrel Bisulfate 300 Mg Tab) 300 mg PO NOW STA Stop: 07/27/23 12:35 Clopidogrel Bisulfate (Clopidogrel Bisulfate 75 Mg Tab) 75 mg PO QAM [facility] Stop: 08/27/23 08:59 Dextrose (Dextrose 50% 50 Ml Syringe) 25 - 50 ml IV UD PRN; Protocol PRN Reason: Hypoglycemia Protocol Stop: 08/21/23 03:27 Empagliflozin (Empagliflozin 10 Mg Tab) 10 mg PO QAM [facility] Stop: 08/24/23 08:59 Last Admin: 07/25/23 08:47 Dose: 10 mg Enoxaparin Sodium (Enoxaparin Inj 40 Mg/0.4 Ml Syr) 40 mg SQ Q24H HOANG Stop: 08/21/23 08:59 Last Admin: 07/26/23 08:59 Dose: 40 mg Finasteride (Finasteride 5 Mg Tab) 5 mg PO QAM HOANG Stop: 08/21/23 08:59 Last Admin: 07/27/23 12:08 Dose: 5 mg Folic Acid (Folic Acid 1 Mg Tab) 1 mg PO DAILY HOANG Stop: 08/24/23 08:59 Last Admin: 07/27/23 12:08 Dose: 1 mg Glucagon (Glucagon For Inj 1 Mg Vial) 1 mg SQ UD PRN; Protocol PRN Reason: Hypoglycemia Protocol Stop: 08/21/23 03:27 Glucose (Glucose 10 Tab/Tube) 4 - 8 tab PO UD PRN; Protocol PRN Reason: Hypoglycemia Treatment Stop: 08/21/23 03:27 Glucose (Glucose 40% Gel 15 Gm Tube) 15 - 30 gm PO UD PRN; Protocol PRN Reason: Hypoglycemia Protocol Stop: 08/21/23 03:27 Sodium Chloride (Nss) 1,000 mls @ 100 mls/hr IV .Q10H HOANG Stop: 08/26/23 06:59 Last Admin: 07/27/23 07:20 Dose: 100 mls/hr Cefazolin Sodium (Ancef 2000mg) 2,000 mg in 15 mls @ 3.75 mls/min IV PREOP HOANG; Protocol Stop: 07/27/23 18:00 Last Admin: 07/27/23 08:59 Dose: Not Given Insulin Aspart (Insulin Aspart Per Unit Charge) 0 units SC ACHS HOANG Stop: 08/26/23 06:29 Last Admin: 07/27/23 12:48 Dose: 3 units Insulin Glargine (Lantus Per Unit Charge) 20 units SC HS ONE Stop: 07/27/23 21:01 Insulin Glargine (Lantus Per Unit Charge) 0 units SC BID HOANG; Protocol Stop: 08/27/23 08:59 Iodixanol (Visipaque) 80 ml IV UD PRN PRN Reason: Interaction Checking Stop: 07/31/23 10:35 Last Admin: 07/27/23 10:37 Dose: 80 ml Lactic Acid (Ammonium Lactate 12% Lotion 225 Gm Btl) 1 gm EXT DAILY PRN PRN Reason: dry skin on legs Stop: 08/23/23 15:55 Linezolid (Linezolid 600 Mg Tab) 600 mg PO BID [facility] Stop: 08/02/23 21:01 Last Admin: 07/27/23 12:08 Dose: 600 mg Losartan Potassium (Losartan Potassium 50 Mg Tab) 100 mg PO DAILY HOAGN Stop: 08/23/23 15:59 Last Admin: 07/27/23 12:08 Dose: 100 mg Metoprolol Tartrate (Metoprolol Tartrate 25 Mg Tab) 25 mg PO QAM [facility] Stop: 08/24/23 08:59 Last Admin: 07/27/23 12:09 Dose: Not Given Miscellaneous (Carbohydrates For Hypoglycemia ) 15 - 30 gm PO UD PRN PRN Reason: Hypoglycemia Protocol Stop: 08/21/23 03:27 Miscellaneous Information (Pharmacy Glycemic Mgmt Consult) 1 each N/A UD PRN; Protocol PRN Reason: Consult Stop: 08/21/23 12:42 Nitroglycerin (Nitroglycerin Sl 0.4 Mg/Tab Tab) 0.4 mg SL Q5M PRN PRN Reason: Chest Pain Stop: 08/21/23 03:27 Pantoprazole Sodium (Pantoprazole 40 Mg Tab) 40 mg PO QAM [facility] Stop: 08/24/23 08:59 Last Admin: 07/27/23 12:09 Dose: 40 mg Rosuvastatin Calcium (Rosuvastatin Calcium 10 Mg Tab) 10 mg PO QPM HOANG Stop: 08/23/23 20:59 Last Admin: 07/26/23 21:07 Dose: 10 mg Vitamin B Complex (Vitamin B Complex Tab) 1 tab PO DAILY [facility] Stop: 08/24/23 08:59 Last Admin: 07/27/23 12:09 Dose: 1 tab (4) Open wound of left heel Encounter type: initial encounter Qualified Code(s): S91.302A - Unspecified open wound, left foot, initial encounter
--- NOTE | 2023-07-27 12:20 | Pharmacy Report ---
Pharmacy Glycemic Short Note 2 - Date of Service July 27, 2023 - Glycemic Short BSG Results (Last 24 hours): 07/26/23 07/26/23 07/27/23 16:53 21:01 05:33 Glucose 122 H POC Glucose 189 H 152 H 07/27/23 07/27/23 06:29 11:11 Glucose POC Glucose 115 H 108 H OUTPATIENT ANTIDIABETIC REGIMEN: * Jardiance 10mg PO QAM * HbA1c 10.0% (07/22/23) ASSESSMENT: 07/26 * Patient was NPO for procedure this AM and Lantus dose was reduced. Diet now ordered post-op. Will increase back tonight and then scale based on BSG starting tomorrow * Novolog was loosened on Thursday and is adequate for now. No change at this time 07/23 * Zachariah received 61 units of insulin yesterday (35 were basal) * Fasting BSG within goal range this morning, continue current basal regimen. * Novolog parameteres seem to be adequately covering and correcting, continue. 07/21 * Sumeet is a 62 YOM admitted with a diabetic foot infection and a history of diabetes mellitus. Pharmacy has been consulted to assist with glycemic management while inpatient. * Fasting BSG this AM elevated, significantly increased at lunchtime, will initiate basal insulin at a weight based stress of 2 starting now, and allow for an increase to a weight based stress of 3 if BSGs elevated. * Novolog tightened to a weight based stress of 3 (based on AdjBW) PLAN FOR INPATIENT GLYCEMIC CONTROL: * Hold outpatient oral diabetes medications * Basal insulin * Lantus 10 units SQ this AM then 20 units tonight * Starting tomorrow, 15-20 units SQ BID depending on BSG (see eMAR for additional details) * Bolus insulin * NovoLog per scale ACHS or Q6hrs while NPO * Goal Range: Low 110 mg/dL - High 140 mg/dL * Correction Factor: 25 mg/dL/unit * Nutritional / Prandial insulin per carb ratio of 1 unit per 8 grams CHO consumed
[2023-07-27] MEDS: CLOPIDOGREL BISULFATE 300 MG TAB PO STA (14:04)
[2023-07-27] MEDS: LANTUS PER UNIT CHARGE SC ONE (20:16)
[2023-07-28 07:35] LABS: Basophils # (auto) 0.03 K/uL (0.00-0.20); Basophils % (auto) 0.3 %; Eosinophils # (auto) 0.34 K/uL (0.00-0.50); Eosinophils % (auto) 3.9 %; Hematocrit (blood only) 41.4 % (42.0-52.0); Hemoglobin 12.6 g/dl (14.0-18.0); Immature Granulocytes # (auto) 0.04 K/uL (0.01-0.20); Immature Granulocytes % (auto) 0.5 %; Lymphocytes # (auto) 1.41 K/uL (1.20-3.40); Lymphocytes % (auto) 16.2 %; Mean Corpuscular Hemoglobin 25.2 pg (25.0-34.0); Mean Corpuscular Hgb Conc 30.4 g/dL (32.0-36.0); Mean Corpuscular Volume 82.8 fL (80.0-100.0); Mean Platelet Volume 9.3 fL (9.4-12.4); Monocytes # (auto) 0.54 K/uL (0.11-0.59); Monocytes % (auto) 6.2 %; Neutrophils # (auto) 6.32 K/uL (1.40-6.50); Neutrophils % (auto) 72.9 %; Platelet Count 230 K/uL (130-400); RDW Coefficient of Variation 14.3 % (11.5-14.5); RDW Standard Deviation 42.6 fL (36.4-46.3); White Blood Count 8.68 K/ul (4.8-10.8)
[2023-07-28 08:23] LABS: BUN Creatinine Ratio 17.1 (10-20); Calcium 9.1 mg/dl (8.6-10.3); Creatinine Clr Calc Pharmacy 119.6 ml/min; Est GFR (African American) 114.9 ml/min; Est GFR (Non-African American) 99.2 ml/min; Potassium 3.7 mmol/L (3.5-5.1)
[2023-07-28] MEDS: LANTUS PER UNIT CHARGE SC SCH (09:11)
[2023-07-28] MEDS: CLOPIDOGREL BISULFATE 75 MG TAB PO SCH (09:14)
--- NOTE | 2023-07-28 13:43 | Hospitalist Progress Note ---
Date of Service July 28, 2023 Assessment & Plan (1) Unable to care for self: (2) Noncompliance with medication regimen: (3) Hyperglycemia: (4) Open wound of left heel: (5) Left foot infection: Plan This is a 62-year-old male with PMH significant for DM II, hyperlipidemia, hy pertension, BPH, history of stroke, history of hyponatremia, history of septic shock in June 2022 2/2 necrotizing fasciitis of the right foot requiring transfer to [facility] with BKA, also with complicating factors of DKA, UTI, periapical abscesses and facial infection s/p extensive aggressive debridement of right foot at with findings were consistent with gas gangrene, osteomyelitis with necrotizing fasciitis. Currently living at home with his nephew. Patient states not ambulating since last 6 months, is not taking any medications (other than BPH meds and Jardiance) and still has sutures present at BKA site. Was taken to PCP yesterday by family and was redirected to ED for further evaluation Family is concerned that he is not taking care of himself. #Vertigo, positional-left side -vertigo and nystagmus on left side only, resolves with repositioning, no reports of continued vertigo concern for BPPV -Maxi maneuver with PT ordered -denies dizziness today #Noncompliance noted -Noncompliance with appointments and medications -Right sutures in BKA stump for over a year -Removed sutures from stump on 07/24 Encourage importance of medication compliance #Left foot infection #Diabetic foot infection Admitted to med/surg noted to have left foot wounds between toes and heel Consulted podiatry-do not feel osteomyelitis is present at this time, continue IV antibiotic treatment and podiatry follow-up OM not noted on imaging Podiatry feels patient would benefit from discharge to rehab given lack of compliance with home care and inability to walk Podiatry recommending rehab for improved medication compliance, help with conditioning Wound culture growing MRSA, bacteroides fragilis, micromonas micros ID consult placed -Transition to linezolid with plans for 7 day course s/p 07/26 intervention Appreciate wound care involvement, continue daily dressings Daily wound care, strict diabetes control #PAD of LLE Concern for PAD given diminished pedal pulses and wounds on left lower extremity LLE arterial doppler with the mid to distal left peroneal artery is occluded. The profunda femoris artery is not visualized and could be occluded. Focal areas of hemodynamically significant stenosis within the left common femoral and distal left superficial femoral arteries. Evaluated by vascular surgery S/P LLE angio 2/2 L SFA Stenosis with AV fistula s/p stent placement POD #1 Loaded with plavix post op, will resume 75mg daily in a.m. await further vascular recommendations #s/p of R BKA 2/2 necrotizing fascitis of R foot s/p extensive debridement and BKA this was done in [place], Dr Moore 07/09/22 he continues to have sutures in place will consult podiatry Orthotics consult was placed, but they do not do BKA management; they recommend Vielka Hernandez out of [facility], #T2DM, poorly controlled Has been without medication except Jardiance Lantus/NovoLog per protocol, consult glycemic pharmacy secondary to hyperglycemia and elevated anion gap A1c 10.0 Will need strict blood sugar control in setting of wounds At d/c pt may benefit from addition of metformin Hold jardiance while in patient #Elevated Anion gap -> resolved minimal elevation at 13, with ketones in urine bicarb 19, no indication for insulin gtt at this time continue current bag of fluids and basal/bolus insulin follow anion gap in am. pt at risk for euglycemic DKA in setting of Jardiance--held prior to procedure #Hyperlipidemia Continue statin #Hypertension Currently not taking medications Persistently elevated BPs, resumed home amlodipine, olmesartan, lopressor Improving 123/76 today #History of BPH Resumed Avodart #HFpEF EF 45-50% on echo done in June 2022 in setting of septic shock Echocardiogram from 07/21 revealed improved EF 55-60%, localized apical wall motion abnormality severe hypokinesis to dyskinesis involving the inferior posterior and apical inferior septal aspect. Basal wall segments are hyperdynamic, grade 1 diastolic dysfunction, no gross valvular disease Compared to prior echocardiogram in 2022 there is no significant change Resumed beta ruth ann and ARB Currently euvolemic on exam DVT prophylaxis Lovenox Disposition med/surg FULL CODE I discussed with patients Sister in Law Felix, with the permission of Crystal. She feels comfortable with current plan. She is hopeful patient will entertain rehab and did report negative encompass experience in past, but hopeful for other options. Pt was seen and examined in collaboration with Dr. Sorenson, please see addendum A total of 46 minutes was spent coordinating, documenting, and providing care for this patient excluding time spent in the performance of separately billed services. This included personally viewing all current laboratories and imaging studies, medication reconciliation, outpatient chart review, and discussion with specialists. Admission and Anticipated Discharge Date Admission Date: July 22, 2023 Supervising Physician Co-Signing Physician Notes I have seen and discussed the case with the collaborating advanced practitioner. I agree with the above PN. I have reviewed and confirmed the patients medical history, the findings on physical examination, and the patients diagnosis and treatment plan with Jorge MURPHY and agree with the information documented. In short, Mr. Rojas is a 62-year-old male now s/p p Left Lower Extremity Arteriogram, Ultrasound Localization of Right Femoral Artery, Percutaneous Transluminal Angioplasty and Stenting of Left Superficial Femoral Artery, Mechanical Closure of Right Femoral Artery. Patient tolerated post-op course. Continues on linezolid. Maxi maneuver attempted but not as effective given patient's limitations--reports dizziness is not a "big concern" at this time. agreeable to rehab[facility] Rest of plan as above. I spent a total of 25 minutes coordinating, documenting, and providing care for this patient excluding time spent in the performance of separately billed services. All of the aforementioned completed outside of collaborating with the assigned advanced practitioner for a full treatment plan. I have reviewed the advanced practitioner's documentation, and I agree with, and take responsibility for the plan of care Subjective Patient was seen and examined in room 384. Follow-up left lower extremity angioplasty with stent placement He denies f/c/s, chest pain, sob, n/v/d. He does have LLE pain today. His diet is normal. He is agreeable for rehab if needed. Review of Systems Review of Systems: All systems reviewed & are unremarkable except as noted in HPI & below Physical Exam Physical Exam: Gen: WD/WN, NAD, A&O x3, flat affected HEENT: Normocephalic, atraumatic, conjunctivae moist, sclerae anicteric, mucous membranes moist. Lung: CTAB Heart: Regular rate, regular rhythm Abdomen: Soft, NT, ND +BS Extremities: R BKA residual Limb, LLE mild edema Skin: Warm, no rash, negative turgor. Results & Data Results & Data Vital Signs (Past 12 Hours) Vital Signs Temp Pulse Resp BP Pulse Ox Pulse Ox O2 Del Method 07/28/23 10:58 36.5 C 60 16 123/76 97 Room Air 07/28/23 09:45 Room Air 07/28/23 09:20 62 146/75 H 07/28/23 07:12 36.4 C L 59 L 18 136/68 94 Room Air 07/28/23 03:04 94 07/28/23 03:00 36.4 C L 55 L 14 137/63 94 Room Air O2 Del Method 07/28/23 10:58 07/28/23 09:45 07/28/23 09:20 07/28/23 07:12 07/28/23 03:04 Room Air 07/28/23 03:00 Laboratory Results Short CBC 07/28/23 Range/Units 07:07 WBC 8.68 (4.8-10.8) K/ul Hgb 12.6 L (14.0-18.0) g/dl Hct 41.4 L (42.0-52.0) % Plt Count 230 (130-400) K/uL BMP 07/28/23 07:07 Sodium 137 Potassium 3.7 Chloride 106 Carbon Dioxide 24 BUN 13 Creatinine 0.76 Glucose 99 Calcium 9.1 Medications Administered Current Inpatient Medications Acetaminophen (Acetaminophen 325 Mg Tab) 650 mg PO Q4H PRN PRN Reason: Pain or Fever Stop: 08/21/23 03:27 Last Admin: 07/27/23 17:58 Dose: 650 mg Amlodipine Besylate (Amlodipine Besylate 5 Mg Tab) 5 mg PO DAILY [facility] Stop: 08/23/23 15:59 Last Admin: 07/28/23 09:14 Dose: 5 mg Clopidogrel Bisulfate (Clopidogrel Bisulfate 75 Mg Tab) 75 mg PO QAM [facility] Stop: 08/27/23 08:59 Last Admin: 07/28/23 09:14 Dose: 75 mg Dextrose (Dextrose 50% 50 Ml Syringe) 25 - 50 ml IV UD PRN; Protocol PRN Reason: Hypoglycemia Protocol Stop: 08/21/23 03:27 Empagliflozin (Empagliflozin 10 Mg Tab) 10 mg PO QAM [facility] Stop: 08/24/23 08:59 Last Admin: 07/25/23 08:47 Dose: 10 mg Enoxaparin Sodium (Enoxaparin Inj 40 Mg/0.4 Ml Syr) 40 mg SQ Q24H [facility] Stop: 08/21/23 08:59 Last Admin: 07/26/23 08:59 Dose: 40 mg Finasteride (Finasteride 5 Mg Tab) 5 mg PO QAM [facility] Stop: 08/21/23 08:59 Last Admin: 07/28/23 09:14 Dose: 5 mg Folic Acid (Folic Acid 1 Mg Tab) 1 mg PO DAILY [facility] Stop: 08/24/23 08:59 Last Admin: 07/28/23 10:24 Dose: 1 mg Glucagon (Glucagon For Inj 1 Mg Vial) 1 mg SQ UD PRN; Protocol PRN Reason: Hypoglycemia Protocol Stop: 08/21/23 03:27 Glucose (Glucose 10 Tab/Tube) 4 - 8 tab PO UD PRN; Protocol PRN Reason: Hypoglycemia Treatment Stop: 08/21/23 03:27 Glucose (Glucose 40% Gel 15 Gm Tube) 15 - 30 gm PO UD PRN; Protocol PRN Reason: Hypoglycemia Protocol Stop: 08/21/23 03:27 Insulin Aspart (Insulin Aspart Per Unit Charge) 0 units SC ACHS [facility] Stop: 08/26/23 06:29 Last Admin: 07/28/23 12:18 Dose: 2 units Insulin Glargine (Lantus Per Unit Charge) 0 units SC BID [facility]; Protocol Stop: 08/27/23 08:59 Last Admin: 07/28/23 09:11 Dose: 15 units Iodixanol (Visipaque) 80 ml IV UD PRN PRN Reason: Interaction Checking Stop: 07/31/23 10:35 Last Admin: 07/27/23 10:37 Dose: 80 ml Lactic Acid (Ammonium Lactate 12% Lotion 225 Gm Btl) 1 gm EXT DAILY PRN PRN Reason: dry skin on legs Stop: 08/23/23 15:55 Linezolid (Linezolid 600 Mg Tab) 600 mg PO BID [facility] Stop: 08/02/23 21:01 Last Admin: 07/28/23 09:14 Dose: 600 mg Losartan Potassium (Losartan Potassium 50 Mg Tab) 100 mg PO DAILY [facility] Stop: 08/23/23 15:59 Last Admin: 07/28/23 09:13 Dose: 100 mg Metoprolol Tartrate (Metoprolol Tartrate 25 Mg Tab) 25 mg PO QAM [facility] Stop: 08/24/23 08:59 Last Admin: 07/28/23 09:15 Dose: 25 mg Miscellaneous (Carbohydrates For Hypoglycemia ) 15 - 30 gm PO UD PRN PRN Reason: Hypoglycemia Protocol Stop: 08/21/23 03:27 Miscellaneous Information (Pharmacy Glycemic Mgmt Consult) 1 each N/A UD PRN; Protocol PRN Reason: Consult Stop: 08/21/23 12:42 Nitroglycerin (Nitroglycerin Sl 0.4 Mg/Tab Tab) 0.4 mg SL Q5M PRN PRN Reason: Chest Pain Stop: 08/21/23 03:27 Pantoprazole Sodium (Pantoprazole 40 Mg Tab) 40 mg PO QAM [facility] Stop: 08/24/23 08:59 Last Admin: 07/28/23 09:13 Dose: 40 mg Rosuvastatin Calcium (Rosuvastatin Calcium 10 Mg Tab) 10 mg PO QPM [facility] Stop: 08/23/23 20:59 Last Admin: 07/27/23 20:18 Dose: 10 mg Vitamin B Complex (Vitamin B Complex Tab) 1 tab PO DAILY [facility] Stop: 08/24/23 08:59 Last Admin: 07/28/23 09:13 Dose: 1 tab (4) Open wound of left heel Encounter type: initial encounter Qualified Code(s): S91.302A - Unspecified open wound, left foot, initial encounter
--- NOTE | 2023-07-29 13:33 | Hospitalist Progress Note ---
Date of Service July 29, 2023 Assessment & Plan (1) Unable to care for self: (2) Noncompliance with medication regimen: (3) Hyperglycemia: (4) Open wound of left heel: (5) Left foot infection: Plan This is a 62-year-old male with PMH significant for DM II, hyperlipidemia, hy pertension, BPH, history of stroke, history of hyponatremia, history of septic shock in June 2022 2/2 necrotizing fasciitis of the right foot requiring transfer to [facility] [place] with BKA, also with complicating factors of DKA, UTI, periapical abscesses and facial infection s/p extensive aggressive debridement of right foot at with findings were consistent with gas gangrene, osteomyelitis with necrotizing fasciitis. Currently living at home with his nephew. Patient states not ambulating since last 6 months, is not taking any medications (other than BPH meds and Jardiance) and still has sutures present at BKA site. Was taken to PCP yesterday by family and was redirected to ED for further evaluation Family is concerned that he is not taking care of himself. #Vertigo, positional-left side -vertigo and nystagmus on left side only, resolves with repositioning, no reports of continued vertigo concern for BPPV -Maxi maneuver with PT ordered -denies dizziness today #Noncompliance noted -Noncompliance with appointments and medications -Right sutures in BKA stump for over a year -Removed sutures from stump on 07/24 Encourage importance of medication compliance #Left foot infection #Diabetic foot infection Admitted to med/surg noted to have left foot wounds between toes and heel Consulted podiatry-do not feel osteomyelitis is present at this time, continue IV antibiotic treatment and podiatry follow-up OM not noted on imaging Podiatry feels patient would benefit from discharge to rehab given lack of compliance with home care and inability to walk Podiatry recommending rehab for improved medication compliance, help with conditioning Wound culture growing MRSA, bacteroides fragilis, micromonas micros ID consult placed -Transition to linezolid with plans for 7 day course s/p 07/26 intervention Appreciate wound care involvement, continue daily dressings Daily wound care, strict diabetes control #PAD of LLE Concern for PAD given diminished pedal pulses and wounds on left lower extremity LLE arterial doppler with the mid to distal left peroneal artery is occluded. The profunda femoris artery is not visualized and could be occluded. Focal areas of hemodynamically significant stenosis within the left common femoral and distal left superficial femoral arteries. Evaluated by vascular surgery S/P LLE angio 2/2 L SFA Stenosis with AV fistula s/p stent placement POD #2 Loaded with plavix post op, will resume 75mg daily in a.m. Discussed with vascular who recommends Plavix 75mg daily and ASA 81mg daily. They would like to see him in clinic in 4 weeks and would also like podiatry to follow him as outpatient. He is established with Dr. Jackson and will need to arrange follow up with him or if unable to re establish Dr. Dumont would see patient with in a week of discharge #s/p of R BKA 2/2 necrotizing fascitis of R foot s/p extensive debridement and BKA this was done in [place], Dr Moore 07/09/22 Orthotics consult was placed, but they do not do BKA management; they recommend Vielka Hernandez out of [facility], #T2DM, poorly controlled Has been without medication except Jardiance Lantus/NovoLog per protocol, consult glycemic pharmacy secondary to hyperglycemia and elevated anion gap A1c 10.0 Will need strict blood sugar control in setting of wounds At d/c pt may benefit from addition of metformin Hold jardiance while in patient #Elevated Anion gap -> resolved minimal elevation at 13, with ketones in urine bicarb 19, no indication for insulin gtt at this time continue current bag of fluids and basal/bolus insulin follow anion gap in am. pt at risk for euglycemic DKA in setting of Jardiance--held prior to procedure #Hyperlipidemia Continue statin #Hypertension Currently not taking medications Persistently elevated BPs, resumed home amlodipine, olmesartan, lopressor Improving 123/76 today #History of BPH Resumed Avodart #HFpEF EF 45-50% on echo done in June 2022 in setting of septic shock Echocardiogram from 07/21 revealed improved EF 55-60%, localized apical wall motion abnormality severe hypokinesis to dyskinesis involving the inferior posterior and apical inferior septal aspect. Basal wall segments are hyperdynamic, grade 1 diastolic dysfunction, no gross valvular disease Compared to prior echocardiogram in 2022 there is no significant change Resumed beta ruth ann and ARB Currently euvolemic on exam DVT prophylaxis Lovenox Disposition He is medically stable, awaiting rehab placement, will need vascular f/u in 4 weeks, follow up with Dr. Jackson of podiatry FULL CODE Pt was seen and examined in collaboration with Dr. Talley, please see addendum A total of 44minutes was spent coordinating, documenting, and providing care for this patient excluding time spent in the performance of separately billed services. This included personally viewing all current laboratories and imaging studies, medication reconciliation, outpatient chart review, and discussion with specialists. Admission and Anticipated Discharge Date Admission Date: July 22, 2023 Supervising Physician Co-Signing Physician Notes Pt was seen and examined by myself, Lorene Talley MD on the day of service. Care was coordinated with Meli Patel PA-C. 62yoM admitted with left wound, s/p BKA on the right, uncontrolled diabetic. Denies acute concerns, currently awaiting placement. On exam, AAOx3. RRR Continue po linezolid. Appreciate Vascular surgery recs for d/c for PAD. otherwise as above. I spent a total [id number] coordinating, documenting, and providing care for this patient excluding time spent in the performance of separately billed services Subjective Patient was seen and examined in room 384. Follow-up left lower extremity angioplasty with stent placement He offers no acute concerns. He is agreeable to rehab. Appetite is good. Denies pain. Review of Systems Review of Systems: All systems reviewed & are unremarkable except as noted in HPI & below Physical Exam Physical Exam: Gen: WD/WN, NAD, A&O x3, flat affected HEENT: Normocephalic, atraumatic, conjunctivae moist, sclerae anicteric, mucous membranes moist. Lung: CTAB Heart: Regular rate, regular rhythm Abdomen: Soft, NT, ND +BS Extremities: R BKA residual Limb, wound dressing in place, LLE mild edema Skin: Warm, no rash, negative turgor. Results & Data Results & Data Vital Signs (Past 12 Hours) Vital Signs Temp Pulse Resp BP Pulse Ox O2 Del Method 07/29/23 13:10 36.8 C 64 159/81 H 94 Room Air 07/29/23 09:01 Room Air 07/29/23 07:33 36.8 C 62 16 144/76 H 94 Room Air Medications Administered Current Inpatient Medications Acetaminophen (Acetaminophen 325 Mg Tab) 650 mg PO Q4H PRN PRN Reason: Pain or Fever Stop: 08/21/23 03:27 Last Admin: 07/27/23 17:58 Dose: 650 mg Amlodipine Besylate (Amlodipine Besylate 5 Mg Tab) 5 mg PO DAILY [facility] Stop: 08/23/23 15:59 Last Admin: 07/29/23 08:40 Dose: 5 mg Clopidogrel Bisulfate (Clopidogrel Bisulfate 75 Mg Tab) 75 mg PO QAM [facility] Stop: 08/27/23 08:59 Last Admin: 07/29/23 08:41 Dose: 75 mg Dextrose (Dextrose 50% 50 Ml Syringe) 25 - 50 ml IV UD PRN; Protocol PRN Reason: Hypoglycemia Protocol Stop: 08/21/23 03:27 Empagliflozin (Empagliflozin 10 Mg Tab) 10 mg PO QAM [facility] Stop: 08/24/23 08:59 Last Admin: 07/25/23 08:47 Dose: 10 mg Enoxaparin Sodium (Enoxaparin Inj 40 Mg/0.4 Ml Syr) 40 mg SQ Q24H [facility] Stop: 08/21/23 08:59 Last Admin: 07/26/23 08:59 Dose: 40 mg Finasteride (Finasteride 5 Mg Tab) 5 mg PO QAM [facility] Stop: 08/21/23 08:59 Last Admin: 07/29/23 08:42 Dose: 5 mg Folic Acid (Folic Acid 1 Mg Tab) 1 mg PO DAILY [facility] Stop: 08/24/23 08:59 Last Admin: 07/29/23 08:39 Dose: 1 mg Glucagon (Glucagon For Inj 1 Mg Vial) 1 mg SQ UD PRN; Protocol PRN Reason: Hypoglycemia Protocol Stop: 08/21/23 03:27 Glucose (Glucose 10 Tab/Tube) 4 - 8 tab PO UD PRN; Protocol PRN Reason: Hypoglycemia Treatment Stop: 08/21/23 03:27 Glucose (Glucose 40% Gel 15 Gm Tube) 15 - 30 gm PO UD PRN; Protocol PRN Reason: Hypoglycemia Protocol Stop: 08/21/23 03:27 Insulin Aspart (Insulin Aspart Per Unit Charge) 0 units SC ACHS [facility] Stop: 08/26/23 06:29 Last Admin: 07/29/23 12:53 Dose: 3 units Insulin Glargine (Lantus Per Unit Charge) 0 units SC BID [facility]; Protocol Stop: 08/27/23 08:59 Last Admin: 07/29/23 08:46 Dose: 15 units Iodixanol (Visipaque) 80 ml IV UD PRN PRN Reason: Interaction Checking Stop: 07/31/23 10:35 Last Admin: 07/27/23 10:37 Dose: 80 ml Lactic Acid (Ammonium Lactate 12% Lotion 225 Gm Btl) 1 gm EXT DAILY PRN PRN Reason: dry skin on legs Stop: 08/23/23 15:55 Linezolid (Linezolid 600 Mg Tab) 600 mg PO BID [facility] Stop: 08/02/23 21:01 Last Admin: 07/29/23 08:38 Dose: 600 mg Losartan Potassium (Losartan Potassium 50 Mg Tab) 100 mg PO DAILY [facility] Stop: 08/23/23 15:59 Last Admin: 07/29/23 08:39 Dose: 100 mg Metoprolol Tartrate (Metoprolol Tartrate 25 Mg Tab) 25 mg PO QAM [facility] Stop: 08/24/23 08:59 Last Admin: 07/29/23 08:41 Dose: 25 mg Miscellaneous (Carbohydrates For Hypoglycemia ) 15 - 30 gm PO UD PRN PRN Reason: Hypoglycemia Protocol Stop: 08/21/23 03:27 Miscellaneous Information (Pharmacy Glycemic Mgmt Consult) 1 each N/A UD PRN; Protocol PRN Reason: Consult Stop: 08/21/23 12:42 Nitroglycerin (Nitroglycerin Sl 0.4 Mg/Tab Tab) 0.4 mg SL Q5M PRN PRN Reason: Chest Pain Stop: 08/21/23 03:27 Pantoprazole Sodium (Pantoprazole 40 Mg Tab) 40 mg PO QAM [facility] Stop: 08/24/23 08:59 Last Admin: 07/29/23 08:41 Dose: 40 mg Rosuvastatin Calcium (Rosuvastatin Calcium 10 Mg Tab) 10 mg PO QPM [facility] Stop: 08/23/23 20:59 Last Admin: 07/28/23 22:03 Dose: 10 mg Vitamin B Complex (Vitamin B Complex Tab) 1 tab PO DAILY [facility] Stop: 08/24/23 08:59 Last Admin: 07/29/23 08:40 Dose: 1 tab (4) Open wound of left heel Encounter type: initial encounter Qualified Code(s): S91.302A - Unspecified open wound, left foot, initial encounter
[2023-07-29 15:18] VITALS: O2SAT 96
[2023-07-30 07:57] LABS: Basophils # (auto) 0.03 K/uL (0.00-0.20); Basophils % (auto) 0.4 %; Eosinophils # (auto) 0.34 K/uL (0.00-0.50); Hematocrit (blood only) 39.4 % (42.0-52.0); Hemoglobin 12.3 g/dl (14.0-18.0); Immature Granulocytes # (auto) 0.02 K/uL (0.01-0.20); Immature Granulocytes % (auto) 0.2 %; Lymphocytes # (auto) 1.51 K/uL (1.20-3.40); Lymphocytes % (auto) 17.7 %; Mean Corpuscular Hemoglobin 25.4 pg (25.0-34.0); Mean Corpuscular Hgb Conc 31.2 g/dL (32.0-36.0); Mean Corpuscular Volume 81.4 fL (80.0-100.0); Mean Platelet Volume 9.5 fL (9.4-12.4); Monocytes # (auto) 0.63 K/uL (0.11-0.59); Monocytes % (auto) 7.4 %; Neutrophils # (auto) 5.99 K/uL (1.40-6.50); Neutrophils % (auto) 70.3 %; Platelet Count 212 K/uL (130-400); RDW Coefficient of Variation 14.5 % (11.5-14.5); RDW Standard Deviation 42.2 fL (36.4-46.3); Red Blood Count 4.84 M/uL (4.70-6.10); White Blood Count 8.52 K/ul (4.8-10.8)
[2023-07-30 08:00] VITALS: BP 155/78; RESP 18; TEMP 98.1
[2023-07-30] MEDS: ASPIRIN 81 MG ECTAB PO SCH (08:05)
[2023-07-30] MEDS: LANTUS PER UNIT CHARGE SC SCH (08:12)
[2023-07-30 08:17] LABS: BUN Creatinine Ratio 17.4 (10-20); Creatinine Clr Calc Pharmacy 131.8 ml/min; Est GFR (African American) 119.6 ml/min; Est GFR (Non-African American) 103.2 ml/min; Magnesium 1.9 mg/dl (1.7-2.4); Phosphorus 3.4 mg/dl (2.5-4.9); Potassium 3.8 mmol/L (3.5-5.1)
[2023-07-30 09:58] VITALS: PULSE 60
--- NOTE | 2023-07-30 12:04 | Discharge Summary ---
Discharge Summary Date of Service July 30, 2023 Notes For Next Care Provider please encourage pt compliance with medications Please ensure Vascular Surgery followup- requesting pt continue with Aspirin and plavix until followup Please ensure Podiatry followup Orthotics consult was placed, but they do not do BKA management. Recommend Vielka Hernandez out of [facility], for followup. Medication Changes From Visit Linezolid 600mg BID x 2 more days Plavix 75mg daily Aspirin 81mg daily Admission HPI Per Admitting Provider 62-year-old male with past medical history significant for diabetes, hyperlipidemia, hypertension, BPH, history of stroke, history of hyponatremia, history of septic shock in June 2022 secondary to necrotizing fasciitis of the right foot and was intubated and also complicated with DKA and UTI and periapical abscesses and facial infection s/p extensive aggressive debridement of right foot and findings were consistent with gas gangrene, osteomyelitis with necrotizing fasciitis. Was requiring vasopressors. . Echo showed 45 to 50% grade 1 diastolic function. 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 He also had hypernatremia sodium of 157. He was transferred in critical condition to [facility] for further debridement. Seems patient had below-knee amputation of the right leg at [place]. Currently living at home with his nephew. Patient states not ambulating since last 6 months. Since last 9 months is not taking any medications. Patient states he was put on antibiotics which caused a lot of abdominal pain and discomfort. He tried with stopping his other medications one after another which seems to helped his abdominal pain. And since then is not taking his regular medications except for medication for his BPH and Jardiance for his diabetes. Today was taken to his PCP office by his family and also found to have the sutures of the right below-knee amputation site still intact as patient has not followed up. And also has ulcers in the left foot and he was recommended to come to the ER and was brought in by the family. Family is concerned that he is not taking care of himself. May need placement. Patient is alert and oriented. Denies any headache. Denies chest pain. Denies shortness of breath. States appetite is okay. Eating okay. No nausea. No abdominal pain. Normal bowel and bladder movements. States not ambulated since 6 months. Hemodynamics are okay. Past medical history. As mentioned above Past surgical history. Right below-knee amputation. Social history. Quit smoking 2020. Smoked 1 pack a day for 41 years. No alcohol currently. No drug use currently. Family history. No family history on file Admission Exam Per Admitting Provider General- Not in distress Head- atraumatic Eyes- PERRL. ENT- oropharynx clear Neck- supple, no JVD. Lungs- clear to auscultation no wheezing or crackles. Heart- regular rhythm; no murmur, no gallop. Abdomen- normal bowel sounds, soft, nontender, no distension. Extremities- Right BKA. Amputation site sutures seen. No erythema or drainage seen. Ulcers seen on left heel. Neuro- alert, oriented PERRL, no facial palsy; no dysarthria; obeys simple commands Principal Dx & Hospital Course #1 = Principal Diagnosis (1) Unable to care for self: (2) Noncompliance with medication regimen: (3) Hyperglycemia: (4) Open wound of left heel: (5) Left foot infection: Plan This is a 62-year-old male with PMH significant for DM II, hyperlipidemia, hypertension, BPH, history of stroke, history of hyponatremia, history of septic shock in June 2022 secondary to necrotizing fasciitis of the right foot requiring transfer to [facility] with BKA. He also has had complicating factors of DKA, UTI, periapical abscesses and facial infection, s/p extensive aggressive debridement of right foot with findings consistent with gas gangrene and osteomyelitis with necrotizing fasciitis. Currently living at home with his nephew. Patient states not ambulating for the last 6 months, is not taking any medications (other than BPH meds and Jardiance) and still has sutures present at BKA site. Was taken to PCP yesterday by family and was redirected to ED for further evaluation Family is concerned that he is not taking care of himself. Left foot infection Diabetic foot infection Noted to have left foot wounds between toes and heel Consulted podiatry-do not feel osteomyelitis is present at this time, continue antibiotic treatment and podiatry follow-up Osteomyelitis not noted on imaging Podiatry feels patient would benefit from discharge to rehab given lack of compliance with home care and inability to walk Podiatry recommending rehab for improved medication compliance, help with conditioning Wound culture growing MRSA, bacteroides fragilis, micromonas micros ID consult placed -Transitioned to linezolid with plans for 7 day course -Received 5 days worth of treatment in the hospital, discharged with 2 days worth of treatment Wound care involved, continue daily dressings Strict diabetes control Podiatry follow up essential after discharge PAD of LLE Concern for PAD given diminished pedal pulses and wounds on left lower extremity LLE arterial doppler with the mid to distal left peroneal artery is occluded. The profunda femoris artery is not visualized and could be occluded. Focal areas of hemodynamically significant stenosis within the left common femoral and distal left superficial femoral arteries. 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 -Pt is established with Dr. Jackson and will need to arrange follow up with him Please ensure vascular surgery follow up Vertigo, positional-left side vertigo and nystagmus on left side only, resolves with repositioning, no reports of continued vertigo concern for BPPV Maxi maneuver with PT ordered Resolved on discharge Hx of R BKA secondary to necrotizing fascitis of R foot s/p extensive debridement This was done in [place], Dr Moore 07/09/22 Orthotics consult was placed, but they do not do BKA management Recommend Vielka Hernandez out of [facility], DMII, poorly controlled Has been without medication except Jardiance Lantus/NovoLog per protocol, consult glycemic pharmacy secondary to hyperglycemia and elevated anion gap A1c 10.0 Will need strict blood sugar control in setting of wounds Pt may benefit from addition of metformin on discharge Resume Jardiance on discharge PCP follow up for optimal control Ensure pt complaince with medications Elevated Anion gap -> resolved minimal elevation at 13, with ketones in urine bicarb 19, no indication for insulin gtt at that time continue current bag of fluids and basal/bolus insulin pt at risk for euglycemic DKA in setting of Jardiance--held prior to procedure Anion gap closed Hyperlipidemia Continue statin Hypertension Currently not taking medications Persistently elevated BPs, resumed home amlodipine, olmesartan, lopressor Continue medications after discharge Please ensure pt compliance History of BPH Resumed Avodart HFpEF EF 45-50% on echo done in June 2022 in setting of septic shock Echocardiogram from 07/21 revealed improved EF 55-60%, localized apical wall motion abnormality severe hypokinesis to dyskinesis involving the inferior posterior and apical inferior septal aspect. Basal wall segments are hyper dynamic, grade 1 diastolic dysfunction, no gross valvular disease Compared to prior echocardiogram in 2022 there is no significant change Resumed beta ruth ann and ARB Currently euvolemic on exam Noncompliance noted Noncompliance with appointments and medications Right sutures in BKA stump for over a year Removed sutures from stump on 07/24 Encourage medication compliance Discharge Exam General: Alert, oriented. No acute distress Psych: Appropriate mood and affect Neuro: difficulty with movements in the bed HEENT: NC/AT CV: RRR Resp: Breath sounds clear bilaterally, no increased effort of breathing. Abdomen: Soft, distended Extremities:R BKA noted Updated Medication List Medication Instructions Recorded Confirmed Type ammonium lactate 12 % lotion 1 applic topical UD PRN dry skin 02/17/22 07/21/23 History on legs clopidogrel 75 mg tablet 75 mg PO QAM 02/17/22 07/22/23 History dutasteride 0.5 mg capsule 0.5 mg PO QAM 02/17/22 07/21/23 History empagliflozin 10 mg tablet 10 mg PO QAM 02/17/22 07/21/23 History (Jardiance) metoprolol tartrate 25 mg tablet 25 mg PO QAM 02/17/22 07/22/23 History olmesartan 40 mg tablet 40 mg PO QAM 02/17/22 07/22/23 History pantoprazole 40 mg tablet,delayed 40 mg PO QAM 02/17/22 07/22/23 History release rosuvastatin 10 mg tablet 10 mg PO QPM 02/17/22 07/22/23 History amlodipine 5 mg tablet 5 mg PO DAILY 06/23/22 07/22/23 History folic acid 1 mg tablet 1 mg PO DAILY 07/08/22 07/22/23 History vitamin B complex 1 tab PO DAILY 07/08/22 07/22/23 History aspirin 81 mg tablet,delayed 81 mg PO QAM #30 tabs 07/30/23 Rx release clopidogrel 75 mg tablet 75 mg PO QAM #30 tabs 07/30/23 Rx linezolid 600 mg tablet 600 mg PO BID #4 tabs 07/30/23 Rx Hospital Stay Data Consultations 07/21/23 23:06 ED Decision to Admit Stat 07/22/23 14:08 Consult Podiatry Routine 07/23/23 07:38 Consult Vascular Surgery Routine 07/23/23 17:06 Consult Infectious Diseases Routine Procedures Performed Operation Date: 07/27/23 08:00 Actual Procedures p Left Lower Extremity Arteriogram, Ultrasound Localization of Right Femoral Artery, Percutaneous Transluminal Angioplasty and Stenting of Left Superficial Femoral Artery, Mechanical Closure of Right Femoral Artery, Moderate Sedation 0844 - 1012 - Howard Ocampo MD Diagnostic Imagining Performed 07/22/23 14:27 US doppler leg [US arterial duplex LE LT] Routine 07/27/23 07:21 EV angio LE LT Routine US EV guide vascular access Routine Duplex Scan Lower Extremity Artery 07/22/23 14:27 US arterial duplex left lower extremity CLINICAL HISTORY: Left lower extremity wound. COMPARISON STUDY: CT angiogram runoff 02/18/2022. FINDINGS: Monophasic to biphasic waveforms in the left common femoral, left superficial femoral, popliteal arteries. Monophasic waveforms within the visualized left calf arteries. Elevated peak systolic velocity within the left common femoral artery of 202 cm/s suggestive of an area of stenosis. There is a focal area of elevated peak systolic velocity within the distal left superficial femoral artery of 305 cm/s consistent with stenosis. The left profunda femoris artery is not visualized. The mid to distal peroneal artery is likely occluded. Normal velocities within the anterior tibial, posterior tibial, dorsalis pedis arteries. The patient deferred evaluation of the ankle brachial indices. IMPRESSION: 1. 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 2. The profunda femoris artery is not visualized and could be occluded. 3. Focal areas of hemodynamically significant stenosis within the left common femoral and distal left superficial femoral arteries. ACT 112: Negative or not required by law. Electronically signed by: Mau Hewitt M.D. 07/23/2023 7:05 AM Foot X-Ray 07/22/23 15:04 XR foot LT 2V CLINICAL HISTORY: Wound. COMPARISON: None FINDINGS: No acute fracture is identified within the left foot. No bony erosions are identified. There is extensive vascular calcification. There is mild dorsal soft tissue swelling. There are posterior and plantar calcaneal spurs. IMPRESSION: No radiographic evidence for acute osteomyelitis within the left foot. ACT 112: Negative or not required by law. Electronically signed by: Jack Hairston M.D. 07/22/2023 5:41 PM Discharge Instructions Given to Patient (Per Discharging Provider) Mr. Rojas, We admitted and treated you for a foot infection. We are discharging you with 2 more days of antibiotics. The vascular surgeon is also recommending that you take Plavix and Aspirin everyday until you follow up with them. They would like to see you in 4 weeks. The fire protection engineering technician would also like to see you after discharge. We re-started your home medications. Please take them as prescribed. Please keep close follow up with your primary care provider after discharge. Please do not hesitate to come back to the emergency room if your symptoms worsen or return. Total Time Total Time Spent Total Time Spent (In Minutes): > 30 minutes
[2023-07-30] MEDS ORDERED: LANTUS PER UNIT CHARGE SC SCH (21:00)
== END 2023-07-30 14:21 | DRG 253 ==
LOC: ED 18:38 → SUATTDRO 07-22 01:14 → EDINP 07-22 01:14 → 3N 07-22 03:29
DX: Z91.148 Patient's other noncompliance with medication regimen for other reason; Z75.8 Other problems related to medical facilities and other health care; I70.202 Unspecified atherosclerosis of native arteries of extremities, left leg; Z89.511 Acquired absence of right leg below knee; Z60.2 Problems related to living alone; I50.30 Unspecified diastolic (congestive) heart failure; Z87.891 Personal history of nicotine dependence; F17.220 Nicotine dependence, chewing tobacco, uncomplicated; I24.89 Other forms of acute ischemic heart disease; Z98.890 Other specified postprocedural states; E11.69 Type 2 diabetes mellitus with other specified complication; E78.5 Hyperlipidemia, unspecified; I11.0 Hypertensive heart disease with heart failure; E11.628 Type 2 diabetes mellitus with other skin complications; K21.9 Gastro-esophageal reflux disease without esophagitis; E11.51 Type 2 diabetes mellitus with diabetic peripheral angiopathy without gangrene; E66.9 Obesity, unspecified; Z79.02 Long term (current) use of antithrombotics/antiplatelets; Z78.9 Other specified health status; Z86.73 Personal history of transient ischemic attack (TIA), and cerebral infarction without residual deficits; E11.40 Type 2 diabetes mellitus with diabetic neuropathy, unspecified; L89.622 Pressure ulcer of left heel, stage 2; E11.65 Type 2 diabetes mellitus with hyperglycemia